=== PATIENT | male | born 1945 | race Caucasian/White ===

== ENCOUNTER → 2017-10-16 08:51 | Outpatient (CLI) | payer MEDICARE, OTHER, SELFPAY ==
[2017-10-16 09:15] LABS: Blood Urea Nitrogen 16 mg/dL (7-18); Creatinine,Serum 1.21 mg/dL (0.70-1.30); Estimated Glomerular Filt Rate 59 ml/min (>60); GFR (African American) 72 ML/MIN (>60)
--- NOTE | 2017-10-16 09:40 | CT_ITS ---
CT abdomen pelvis w con CLINICAL INDICATION: Follow-up pancreatic mass noted on recent lumbar spine CT ITS.REASON: ABD MASS ORDERING PHYSICIAN: Jeb Gonzalez MD PATIENT AGE: 72 years COMPARISON: None TECHNIQUE: Axial images obtained with sagittal and coronal reformats. All CT scans at the facility use one or more dose reduction, viz: automated exposure control; ma/kV adjustment per patient size (including targeted exams where dose is matched to indication; i.e. head); or iterative reconstruction technique. PROCEDURE: Oral Contrast: None IV Contrast: 75 mL's of Isovue-370. FINDINGS: Faint nodularity is present in the right middle lobe at 7 mm nonspecific and incompletely imaged. No focal liver lesion is evident. The spleen, adrenal glands, and gallbladder has an unremarkable appearance. No renal calculi, ureteral calculi, or hydronephrosis. There is a 15 mm right renal cyst. There is a solid-appearing somewhat heterogeneously mass involving the body of the pancreas to the left of midline at the junction of the body and the tail. This measures 5.7 x 5 x 5.8 cm transverse, cephalad to caudad and AP. There are a few calcifications present within the mass centrally and along the superior aspect. This is consistent with pancreatic neoplasm. There are a few small retroperitoneal lymph nodes. There is a small umbilical hernia containing fat. There is minimal stranding of the fat along the inferior aspect of both kidneys in the lateral pararenal fascia nonspecific. No evidence of appendicitis or diverticulitis. There is a mild amount retained colonic feces. There are some minimal stranding of the fat in the pelvis. There is moderate thickening of the urinary bladder wall concentric in nature with minimal stranding of the perivesical fat suggesting cystitis. There is mild enlargement prostate 4.5 cm. 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 IMPRESSION: 1. 5.8 cm solid-appearing pancreatic mass involving the junction of the body and tail the pancreas consistent with pancreatic neoplasm. There is no good portal for CT guided biopsy. Biopsy could be performed endoscopically by the transgastric approach. 2. Thickened urinary bladder wall with mild stranding of the adjacent fat suggesting cystitis.
== END ==
PROVIDERS: PCP Emergency Medicine; Visit Provider Emergency Medicine
DX: R19.00 Intra-abdominal and pelvic swelling, mass and lump, unspecified site (principal)
CPT/HCPCS: 36415; 74177; 82565; 84520; Q9967

== ENCOUNTER → 2018-05-01 00:14 | Outpatient (REF) | payer MEDICARE, MEDICAID, SELFPAY ==
[2018-05-01 00:27] LABS: Adenovirus F 40/41, stool Not Detected (NotDetected); Astrovirus Not Detected (NotDetected); Campylobacter Not Detected (NotDetected); Clostridium Difficile A/B, PCR Not Detected (NotDetected); Cryptosporidium Not Detected (NotDetected); Cyclospora Cayetanesis Not Detected (NotDetected); Entamoeba histolytica Not Detected (NotDetected); Enteroaggregative E coli Not Detected (NotDetected); Enteropathogenic E coli Not Detected (NotDetected); Enterotoxigenic E coli Not Detected (NotDetected); Giardia lamblia Not Detected (NotDetected); Norovirus Not Detected (NotDetected); Plesimonas Shigalloides, PCR Not Detected (NotDetected); Rotavirus A Not Detected (NotDetected); Salmonella, PCR Not Detected (NotDetected); Shiga-like toxin E coli Not Detected (NotDetected); Shigella Enterovasive E coli Not Detected (NotDetected); Vibrio Cholerae Not Detected (NotDetected); Vibrio, PCR Not Detected (NotDetected); Yersinia Entercolitica, PCR Not Detected (NotDetected)
[2018-05-01 03:07] LABS: Sapovirus Detected (NotDetected)
== END ==
LOC: LAB 00:14
PROVIDERS: Visit Provider Emergency Medicine
DX: R19.7 Diarrhea, unspecified (principal)
CPT/HCPCS: 87507

== ENCOUNTER 2019-04-21 14:20 | Observation (INO) ==
[2019-04-21 14:41] LABS: Microscopic, Urine URINE MICROSCOPIC (MICROSCOPIC)
[2019-04-21 14:43] LABS: Appearance,Urine CLEAR (Clear); Bilirubin,Urine Negative (Negative); Blood, Urine 3+ (Negative); Color,Urine YELLOW (Yellow); Glucose,Urine (UA) Negative (Negative); Ketones,Urine Negative (Negative); Leukocyte Esterase,Urine 2+ (Negative); Protein,Urine 2+ (Negative)
[2019-04-21 14:51] LABS: Bacteria,Urine 3+ /lpf; Mucus,Urine Trace /lpf; Squamous Epithelial Cell,Urine Occasional #/hpf (0-5); WBC,Urine TNTC #/hpf (0-3); Yeast,Urine 1+ /lpf
--- NOTE | 2019-04-21 14:57 | Emergency Department Note ---
ED Disposition Clinical Impression: Chronic paranoid schizophrenia, Mass of pancreas, Lumbar spondylolysis UTI (urinary tract infection) Qualifiers: Urinary tract infection type: site unspecified Hematuria presence: without hematuria Qualified Code(s): N39.0 - Urinary tract infection, site not specified GERD (gastroesophageal reflux disease) Qualifiers: Esophagitis presence: esophagitis presence not specified Qualified Code(s): K21.9 - Gastro-esophageal reflux disease without esophagitis HTN (hypertension) Qualifiers: Hypertension type: essential hypertension Qualified Code(s): I10 - Essential (primary) hypertension Obesity Qualifiers: Obesity type: due to excess calories Obesity classification: adult class 3 (BMI >= 40) Serious obesity comorbidity presence: with serious comorbidity Body mass index: BMI 45.0-49.9 Qualified Code(s): E66.01 - Morbid (severe) obesity due to excess calories; Z68.42 - Body mass index (BMI) 45.0-49.9, adult Osteopenia Qualifiers: Osteopenia location: unspecified Qualified Code(s): M85.80 - Other specified disorders of bone density and structure, unspecified site Disposition: Admitted as Observation Condition on Discharge: Fair Instructions: DI for Acute Abdomen Referrals: Provider,Referral, [Referring] - - Critical Care Critical Care Time: No Attestation: On 04/21/19, the high probability of a clinically significant, sudden or life threatening deterioration of the following system(s) required my full and direct attention, intervention and personal management. The time I documented below is in addition to time spent performing reported procedures but includes the following listed in this critical care notation. Medical Decision Making - Medical Records Medical records reviewed: Yes: I reviewed the patient's medical records. - Miles Inquiry Pt receiving controlled substance: No Vital Signs: 04/21/19 14:22 04/21/19 14:43 04/21/19 15:22 Temperature 100 F H Temperature Source Rectal Pulse Rate [Right] 51 L 82 78 Respiratory Rate 20 Blood Pressure [Right Arm] 128/100 H 159/75 H 147/81 H Blood Pressure Mean [Right Arm] 109 103 103 02 Sat by Pulse Oximetry 90 L 93 L 94 L 04/21/19 15:30 04/21/19 16:22 Temperature Temperature Source Pulse Rate [Right] 87 77 Respiratory Rate Blood Pressure [Right Arm] 147/81 H 145/65 H Blood Pressure Mean [Right Arm] 103 91 02 Sat by Pulse Oximetry 93 L 94 L - Lab Data Lab results reviewed: Yes: I reviewed the patient's lab results. Lab Results 04/21/19 14:21: Urine Color Yellow, Urine Appearance Clear, Urine pH 6.0, Ur Specific [place] 1.020, Urine Protein 2+, Urine Glucose (UA) Negative, Urine Ketones Negative, Urine Blood 3+, Urine Nitrate Positive, Urine Bilirubin Negative, Urine Urobilinogen 1.0, Ur Leukocyte Esterase 2+ A, Urine RBC 10-20, Urine WBC Tntc, Ur Squamous Epith Cells Occasional, Urine Bacteria 3+, Urine Mucus Trace, Urine Yeast 1+ 04/21/19 14:35: Influenza Type A Ag Negative, Influenza Type B Ag Negative 04/21/19 14:44: WBC 10.4, RBC 4.03 L, Hgb 12.4 L, Hct 39.4 L, MCV 97.8 H, MCH 30.7, MCHC 31.3 L, RDW 14.2, Plt Count 164, MPV 8.7, Neut % (Auto) 86.9 H, Lymph % (Auto) 6.9 L, [place] % (Auto) 5.3, Eos % (Auto) 0.7, Baso % (Auto) 0.2, Neut # (Auto) 9.0 H, Lymph # (Auto) 0.7, [place] # (Auto) 0.6, Eos # (Auto) 0.1, Baso # (Auto) 0.0, Total Counted 100, Neutrophils % (Manual) 86 H, Lymphocytes % (Manu al) 6 L, Monocytes % (Manual) 7, Eosinophils % (Manual) 1, Platelet Estimate Normal, RBC Morphology Normal, ESR 106 H 04/21/19 14:44: Sodium 138, Potassium 3.2 L, Chloride 100, Carbon Dioxide 29, Anion Gap 12.2, BUN 26 H, Creatinine 1.54 H, Estimated Creat Clear 47, Estimated GFR 45 L, Est GFR ( Amer) 54 L, Glucose 125 H, Calcium 8.6, Total Bilirubin 0.5, AST 88 H, ALT 72, Alkaline Phosphatase 86, Troponin I < 0.02, C- Reactive Protein 29.1 H, Total Protein 7.4, Albumin 2.9 L, Globulin 4.5 H, Albumin/Globulin Ratio 0.6 L, Amylase 43, Lipase 115, TSH 2.89, Thyroxine (T4) 7.2 04/21/19 14:44: Lactate 0.9 04/21/19 14:44: B-Natriuretic Peptide 852 H Result diagrams: 04/21/19 14:44 04/21/19 14:44 Orders (Tests/Meds): ED MEDICATIONS Generic Name Dose Route Start Last Admin Trade Name Freq PRN Reason Stop Dose Admin Ertapenem 1 gm/ Sodium 50 mls @ 100 mls/hr 04/21/19 15:15 04/21/19 15:16 Chloride IV 05/05/19 15:14 100 mls/hr Q24H OMKAR Administration Protocol Sodium Chloride 1,000 mls @ 999 mls/hr 04/21/19 15:45 04/21/19 15:39 Sod Chlor 0.9% 1000ml Bag IV 04/21/19 16:45 999 mls/hr .Q1H1M OMKAR Administration ORDERS Category Date Time Status CT abdomen pelvis wo con Stat Cat Scan 04/21/19 15:48 Taken XR chest portable Stat Exams 04/21/19 14:32 Taken Troponin I Q3H Lab 04/21/19 17:45 Ordered Troponin I Q3H Lab 04/21/19 20:45 Ordered Urinalysis and Microscopic Stat Lab 04/21/19 14:27 Ordered Blood Culture Stat Micro 04/21/19 14:44 Received Urine Culture Stat Micro 04/21/19 14:21 Received - Radiology Data #1 Image(s): Chest Image Reviewed: Yes I reviewed the patient's radiology image Preliminary Findings: Abnormal - CT Data CT Scan: Abdomen, Pelvis Time Received: 17:[address] Reviewed: Yes: I have viewed the radiologist's interpretation Preliminary Findings: Abnormal (see report ) - ECG Data Tracing #1 Arrhythmias present: wandering atrial pacemaker Ischemic changes: non-specific ST-T wave changes Nausea/Vomiting/Diarrhea HPI - General Chief complaint: Abdominal Pain Stated complaint: abd pain Time Seen by Provider: 04/21/19 14:35 Mode of Arrival: EMS Source of Information: Patient, EMS, Medical Record Limitations: No Limitations Description of Symptoms (Recalled from ER Triage Doc. by RN): Pt c/o abd tenderness and states he hasnt been able to have a BM, pt states he also has been weak and overall not feeling well. - History of Present Illness HPI Narrative: lower abd pain with distention today at [facility] and sent for eval - has hx of pancreatic mass - no vomiting MD complaint: nausea, vomiting, abdominal pain Onset (ago): hour(s) Associated Abdominal Pain: Yes Location of pain: periumbilical Associated symptoms: loss of appetite - Related Data Home Medications Medication Instructions Recorded Confirmed Acetaminophen [Tylenol 500mg 500 mg PO NEEDED PRN 04/21/19 04/21/19 tablet] Amlodipine Besylate [Amlodipine 5 mg PO DAILY 04/21/19 04/21/19 5mg tab] Aspirin [Aspirin 81mg chewable 81 mg PO DAILY 04/21/19 04/21/19 tab] Atorvastatin Calcium [Atorvastatin 10 mg PO HS 04/21/19 04/21/19 10mg Tab] Donepezil HCl [Aricept 5mg 5 mg PO HS 04/21/19 04/21/19 Tablet] Doxazosin Mesylate [Doxazosin 1mg 1 mg PO HS 04/21/19 04/21/19 Tab] Furosemide [Lasix 40mg tab] 40 mg PO BID 04/21/19 04/21/19 Ibuprofen [Ibuprofen 400mg 400 mg PO Q6HP PRN 04/21/19 04/21/19 Tablet] Nystatin 1 each MC NEEDED PRN 04/21/19 04/21/19 OXcarbazepine [Trileptal] 300 mg PO BID 04/21/19 04/21/19 Pantoprazole Sodium [Protonix 40mg 40 mg PO DAILY 04/21/19 04/21/19 tablet] Potassium Chloride [Klor-Con 10mEq 10 meq PO BID 04/21/19 04/21/19 tab] Sennosides/Docusate Sodium [Senna 1 each PO NEEDED PRN 04/21/19 04/21/19 Plus 8.6-50 mg Softgel] carvediloL [Coreg 25mg Tablet] 25 mg PO BID 04/21/19 04/21/19 risperiDONE [Risperdal] 2 mg PO BID 04/21/19 04/21/19 Allergies Allergy/AdvReac Type Severity Reaction Status Date / Time No Known Allergies Allergy Verified 02/02/19 13:56 [facility] History - Hepatitis A Screen Drug use history?: No High risk sexual behaviors?: No History of sexually transmitted infection?: No Currently employed?: No Childcare worker?: No Do you have indoor plumbing?: Yes Do you have electricity?: Yes Attestation statement:: This patient has been screened for Hepatitis A risk factors. I have reviewed the patient's past medical history: Yes Medical History: Reports:: Congestive Heart Failure, Gastroesophageal Reflux Disease(GERD), Hyperlipidemia, Hypertension Denies:: Diabetes Mellitus Type 1, Diabetes Mellitus Type 2 Other Medical History: Reports: Other Comment: hx of suicide attempt,pancreas mass,paranoid,neurocognitive dz, Amputation: No Fractures: No - Social History Smoking Status: Never smoker Alcohol Intake: never Substance Use Type: denies use Occupational Status: disabled Comment: History of suicidal ideation, chronic., Schizophrenic, major depression disorder, and neurocognitive disorder. Family Hx:: Unable to obtain ROS Obtained: Yes All systems reviewed & no additional complaints - Constitutional Constitutional: Denies fever(s), Reports poor appetite - Eyes Eyes: Denies change in vision - ENT Ears, Nose, Mouth, and Throat: Denies sore throat - Cardiovascular Cardiovascular: Denies chest pain - Respiratory Respiratory: No cough - Gastrointestinal Gastrointestingal: Reports: as per HPI, abdominal pain, nausea. Denies: vomiting - Genitourinary Male Genitourinary: Denies hematuria - Musculoskeletal Musculoskeletal: Denies joint pain - Integumentary/Breasts Skin/Breast: Denies rash - Neurologic Neurologic: Denies seizure-like activity Physical Exam - General General appearance: alert, obese - Head Head exam: normocephalic - Eye Eye exam: Present: PERRL, EOMI. Absent: scleral icterus - ENT ENT exam: Present: mucous membranes dry - Neck Neck exam: Present: trachea midline - Respiratory Respiratory exam: Present: other (dec bs bilat ). Absent: respiratory distress - Cardiovascular Cardiovascular exam: Present: regular rate, irregular rhythm, systolic murmur, +S4 - Abdominal Exam Abdominal exam: Present: soft, tenderness Abdominal tenderness: Present: suprapubic, moderate - Extremities Exam Extremities exam: Present: pedal edema. Absent: calf tenderness - Neurological Exam Neurological exam: Present: alert, CN II-XII intact - Skin Skin exam: Absent: rash
[2019-04-21 14:59] LABS: Basophils % 0.2 % (0.1-2.0); Eosinophils # 0.1 K/mm3 (0.0-0.4); Eosinophils % 0.7 % (0.1-12.0); Hematocrit 39.4 % (42.0-52.0); Hemoglobin 12.4 g/dL (14.1-18.0); Lymphocytes # 0.7 K/mm3 (0.7-4.5); Lymphocytes % 6.9 % (10-50); Mean Corpuscular HGB Conc 31.3 g/dL (31.8-35.4); Mean Corpuscular Volume 97.8 fl (80-94); Mean Platelet Volume 8.7 fl (7.4-10.4); Monocytes # 0.6 K/mm3 (0.1-1.0); Monocytes % 5.3 % (1.7-9.3); Neutrophils % 86.9 % (37.0-80.0); Platelet Count 164 K/mm3 (142-424); Red Blood Count 4.03 M/mm3 (4.60-6.20); Red Cell Distribution Width 14.2 % (11.5-17.5); White Blood Count 10.4 K/mm3 (4.8-10.8)
[2019-04-21 15:21] LABS: Alanine Aminotransferase 72 U/L (12-78); Albumin Level 2.9 gm/dL (3.4-5.0); Albumin/Globulin Ratio 0.6 (1.1-1.8); Alkaline Phosphatase 86 U/L (46-116); Amylase 43 U/L (25-115); Anion Gap 12.2 mEq/L (5-15); Aspartate Amino Transferase 88 U/L (15-37); Bilirubin,Total 0.5 mg/dL (0.2-1.0); Blood Urea Nitrogen 26 mg/dL (7-18); Calcium 8.6 mg/dL (8.5-10.1); Carbon Dioxide 29 mmol/L (21.0-32.0); Chloride 100 mmol/L (98-107); Globulin 4.5 gm/dl (1.3-3.2); Glucose 125 mg/dL (74-106); Sodium 138 mmol/L (136-145); Thyroid Stimulating Hormone 2.89 uIU/ml (0.358-3.740); Total Protein,Serum 7.4 gm/dL (6.4-8.2)
[2019-04-21 15:25] LABS: Erythrocyte Sedimentation Rate 106 mm/hr (0-20)
[2019-04-21 15:30] LABS: Eosinophils % 1 % (0-3); Lymphocytes % 6 % (10-50); Monocytes % 7 % (2-9); Neutrophils % 86 % (42-76); Total Cells Counted 100
[2019-04-21 15:32] LABS: C-Reactive Protein 29.1 mg/dL (0.0-0.9); RBC Morphology Normal
--- NOTE | 2019-04-21 18:10 | History & Physical Report ---
*Admission Date: 04/21/19 *Chief complaint: abd pain *History of present illness: this pt was sent from [facility] with progressive abd pain lower with dec po intake and was found to have uti in the ed and was admitted for ivf and abx [facility] History I have reviewed the patient's past medical history: Yes Medical History: Reports:: Congestive Heart Failure, Gastroesophageal Reflux Disease(GERD), Hyperlipidemia, Hypertension Denies:: Diabetes Mellitus Type 1, Diabetes Mellitus Type 2 *Have you ever received a pneumonia vaccine?: Yes *Have you received a flu vaccine this season?: Yes Other Medical History: Reports: Other Amputation: No Fractures: No - *Social History Smoking Status: Never smoker Alcohol Intake: never Substance Use Type: denies use *Occupational Status:: disabled *Travel in the last 8 weeks: None Family Hx:: Unable to obtain Review of Systems - Review of Systems Review of systems:: pertinent systems reviewed and negative unless documented below - Constitutional Denies fever(s), Denies headache(s) - Eyes Denies change in vision - ENT Denies sore throat - *Cardiovascular Denies chest pain, Denies chest pain at rest - *Respiratory Denies cough - *Gastrointestinal Reports abdominal pain, Reports nausea - *Genitourinary Denies blood in urine - *Musculoskeletal Denies joint pain - Integumentary/Breasts Denies rash - *Neurologic Denies frequent falls, Denies headache(s), Denies tingling/numbness/burning sensations, Denies seizure-like activity - Psychiatric Denies anxiety Meds Home Medications Medication Instructions Recorded Confirmed Type Acetaminophen [Tylenol 500mg 500 mg PO NEEDED PRN 04/21/19 04/21/19 History tablet] Amlodipine Besylate [Amlodipine 5 mg PO DAILY 04/21/19 04/21/19 History 5mg tab] Aspirin [Aspirin 81mg chewable 81 mg PO DAILY 04/21/19 04/21/19 History tab] Atorvastatin Calcium [Atorvastatin 10 mg PO HS 04/21/19 04/21/19 History 10mg Tab] Donepezil HCl [Aricept 5mg 5 mg PO HS 04/21/19 04/21/19 History Tablet] Doxazosin Mesylate [Doxazosin 1mg 1 mg PO HS 04/21/19 04/21/19 History Tab] Furosemide [Lasix 40mg tab] 40 mg PO BID 04/21/19 04/21/19 History Ibuprofen [Ibuprofen 400mg 400 mg PO Q6HP PRN 04/21/19 04/21/19 History Tablet] Nystatin 1 each MC NEEDED PRN 04/21/19 04/21/19 History OXcarbazepine [Trileptal] 300 mg PO BID 04/21/19 04/21/19 History Pantoprazole Sodium [Protonix 40mg 40 mg PO DAILY 04/21/19 04/21/19 History tablet] Potassium Chloride [Klor-Con 10mEq 10 meq PO BID 04/21/19 04/21/19 History tab] Sennosides/Docusate Sodium [Senna 1 each PO NEEDED PRN 04/21/19 04/21/19 History Plus 8.6-50 mg Softgel] carvediloL [Coreg 25mg Tablet] 25 mg PO BID 04/21/19 04/21/19 History risperiDONE [Risperdal] 2 mg PO BID 04/21/19 04/21/19 History Allergies Allergy/AdvReac Type Severity Reaction Status Date / Time No Known Allergies Allergy Verified 02/02/19 13:56 Exam Vital signs and Labs for Last 24 Hours: Temp Pulse Resp BP Pulse Ox 98.1 F 72 18 146/94 H 94 L 04/21/19 17:30 04/21/19 17:30 04/21/19 17:30 04/21/19 17:30 04/21/19 16:22 Laboratory Results - last 24 hr 04/21/19 14:21: Urine Color Yellow, Urine Appearance Clear, Urine pH 6.0, Ur Specific [place] 1.020, Urine Protein 2+, Urine Glucose (UA) Negative, Urine Ketones Negative, Urine Blood 3+, Urine Nitrate Positive, Urine Bilirubin Negative, Urine Urobilinogen 1.0, Ur Leukocyte Esterase 2+ A, Urine RBC 10-20, Urine WBC Tntc, Ur Squamous Epith Cells Occasional, Urine Bacteria 3+, Urine Mucus Trace, Urine Yeast 1+ 04/21/19 14:35: Influenza Type A Ag Negative, Influenza Type B Ag Negative 04/21/19 14:44: WBC 10.4, RBC 4.03 L, Hgb 12.4 L, Hct 39.4 L, MCV 97.8 H, MCH 30.7, MCHC 31.3 L, RDW 14.2, Plt Count 164, MPV 8.7, Neut % (Auto) 86.9 H, Lymph % (Auto) 6.9 L, [place] % (Auto) 5.3, Eos % (Auto) 0.7, Baso % (Auto) 0.2, Neut # (Auto) 9.0 H, Lymph # (Auto) 0.7, [place] # (Auto) 0.6, Eos # (Auto) 0.1, Baso # (Auto) 0.0, Total Counted 100, Neutrophils % (Manual) 86 H, Lymphocytes % (Manual) 6 L, Monocytes % (Manual) 7, Eosinophils % (Manual) 1, Platelet Estimate Normal, RBC Morphology Normal, ESR 106 H 04/21/19 14:44: Sodium 138, Potassium 3.2 L, Chloride 100, Carbon Dioxide 29, Anion Gap 12.2, BUN 26 H, Creatinine 1.54 H, Estimated Creat Clear 47, Estimated GFR 45 L, Est GFR ( Amer) 54 L, Glucose 125 H, Calcium 8.6, Total Bilirubin 0.5, AST 88 H, ALT 72, Alkaline Phosphatase 86, Troponin I < 0.02, C- Reactive Protein 29.1 H, Total Protein 7.4, Albumin 2.9 L, Globulin 4.5 H, Albumin/Globulin Ratio 0.6 L, Amylase 43, Lipase 115, TSH 2.89, Thyroxine (T4) 7.2 04/21/19 14:44: Lactate 0.9 04/21/19 14:44: B-Natriuretic Peptide 852 H I & O for Last 24 hours: Intake & Output 04/19/19 04/20/19 04/21/19 04/22/19 11:59 11:59 11:59 11:59 Intake Total 1100 / 1100 Balance 1100 / 1100 Weight 350 lb - Constitutional no acute distress, obese - *Routine HEENT Exam Head: Present: normocephalic Eye: Present: EOMI, PERRL ENT: Present: mucous membranes dry - *Routine Neck Exam Present: supple. Absent: JVD - *Routine Respiratory Exam Present: decreased breath sounds - *Routine Cardiovascular Exam Present: RRR, murmur, S4 - *Routine Abdominal Exam Present: soft - *Routine Extremities Exam Absent: calf tenderness - *Routine Skin Exam Present: intact - *Routine Neurological Exam Present: alert, CN II-XII intact - Routine Psychiatric Exam Present: normal affect Assessment and Plan (1) Lumbar spondylolysis Current visit: Yes Status: Acute Category: Medical Code(s): M43.06 - Spondylolysis, lumbar region (2) Osteopenia Current visit: Yes Status: Acute Qualifiers: Osteopenia location: unspecified Qualified Code(s): M85.80 - Other specified disorders of bone density and structure, unspecified site Category: Medical Code(s): M85.80 - Other specified disorders of bone density and structure, unspecified site (3) Hyperlipemia Current visit: No Status: Chronic Qualifiers: Hyperlipidemia type: mixed hyperlipidemia Qualified Code(s): E78.2 - Mixed hyperlipidemia Category: Medical Code(s): E78.5 - Hyperlipidemia, unspecified (4) HTN (hypertension) Current visit: Yes Status: Chronic Qualifiers: Hypertension type: essential hypertension Qualified Code(s): I10 - Essential (primary) hypertension Category: Medical Code(s): I10 - Essential (primary) hypertension (5) Chronic paranoid schizophrenia Current visit: Yes Status: Chronic Category: Medical Code(s): F20.0 - Paranoid schizophrenia (6) UTI (urinary tract infection) Current visit: Yes Status: Acute Qualifiers: Urinary tract infection type: site unspecified Hematuria presence: without hematuria Qualified Code(s): N39.0 - Urinary tract infection, site not specified Category: Medical Code(s): N39.0 - Urinary tract infection, site not specified (7) Mass of pancreas Current visit: Yes Status: Acute Category: Medical Code(s): K86.89 - Other specified diseases of pancreas (8) Obesity Current visit: Yes Status: Acute Qualifiers: Obesity type: due to excess calories Obesity classification: adult class 3 (BMI >= 40) Serious obesity comorbidity presence: with serious comorbidity Body mass index: BMI 45.0-49.9 Qualified Code(s): E66.01 - Morbid (severe) obesity due to excess calories; Z68.42 - Body mass index (BMI) 45.0-49.9, adult Category: Medical Code(s): E66.9 - Obesity, unspecified
[2019-04-22 05:57] LABS: Basophils % 0.3 % (0.1-2.0); Eosinophils # 0.2 K/mm3 (0.0-0.4); Lymphocytes # 0.8 K/mm3 (0.7-4.5); Lymphocytes % 9.1 % (10-50); Mean Corpuscular HGB Conc 31.6 g/dL (31.8-35.4); Mean Corpuscular Volume 95.8 fl (80-94); Mean Platelet Volume 8.4 fl (7.4-10.4); Monocytes # 0.6 K/mm3 (0.1-1.0); Monocytes % 7.1 % (1.7-9.3); Neutrophils % 81.4 % (37.0-80.0); Platelet Count 178 K/mm3 (142-424); Red Blood Count 3.66 M/mm3 (4.60-6.20); White Blood Count 8.6 K/mm3 (4.8-10.8)
[2019-04-22 05:59] LABS: Hemoglobin 11.1 g/dL (14.1-18.0)
[2019-04-22 06:00] LABS: Anion Gap 12.2 mEq/L (5-15); Calcium 8.3 mg/dL (8.5-10.1)
--- NOTE | 2019-04-22 07:57 | Pharmacy Consult Notes ---
[facility] Pharmacy VTE Monitoring - Patient Demographics Admission date: 04/21/19 Report Date: 04/22/19 Time: 07:56 Allergies/Adverse Reactions: Patient Allergies No Known Allergies Allergy (Verified 02/02/19 13:56) Height: 1.8 m Weight: 119.068 kg Patient Problems: Current Active Problems UTI (urinary tract infection) (Acute) Mass of pancreas (Acute) Obesity (Acute) Lumbar spondylolysis (Acute) Osteopenia (Acute) GERD (gastroesophageal reflux disease) (Chronic) HTN (hypertension) (Chronic) Chronic paranoid schizophrenia (Chronic) - VTE Risk Labs: VTE Related Lab Results Hgb 11.1 g/dL (14.1-18.0) L D 04/22/19 05:28 Hct 35.0 % (42.0-52.0) L 04/22/19 05:28 Plt Count 178 K/mm3 (142-424) 04/22/19 05:28 BUN 23 mg/dL (7-18) H 04/22/19 05:28 Creatinine 1.28 mg/dL (0.70-1.30) 04/22/19 05:28 Estimated Creat Clear 87 mL/min (50-200) 04/22/19 05:28 VTE Score: 4 VTE Risk Level: Low Risk - Prophylaxis VTE Prophylaxis Ordered?: Yes Types of VTE Prophylaxis: TEDS Knee High Location of Applied Device: Bilateral Lower Extremeties
--- NOTE | 2019-04-22 08:38 | Discharge Summary ---
General - General Admission date:: 04/21/19 Discharge date: 04/22/19 HPI HPI: this pt was sent from [facility] with progressive abd pain lower with dec po intake and was found to have uti in the ed and was admitted for ivf and abx Hospital Course Hospital Course: x ray:IMPRESSION: Cardiomegaly with mild right basilar atelectasis or infiltrate ct abd/pelvis IMPRESSION: 1. Slight enlargement of the pancreatic mass. 2. Small focus of soft tissue stranding in the left pericolic gutter abutting the descending colon raising the possibility of early occult diverticulitis. No colon wall thickening or abscess or perforation. 3. Mild ectasia of the renal collecting systems and distention of the urinary bladder with mild enlargement of the prostate UTI;Urine preliminary gram negative-had 2 doses of Invanz while in the hospital will discharge back to [place] on 1 g of Rocephin while waiting for final culture report. Patient needs to follow-up with Dr. Palacios regarding pancreatic mass. Objective Vital signs: Temp Pulse Resp BP Pulse Ox 99 F 66 22 142/84 H 92 L 04/22/19 08:00 04/22/19 08:00 04/22/19 08:00 04/22/19 08:00 04/22/19 08:00 no acute distress, obese - *Routine HEENT Exam Head: Present: normocephalic Eye: Present: PERRL ENT: Present: mucous membranes moist - *Routine Respiratory Exam Present: CTA bilaterally - *Routine Cardiovascular Exam Present: RRR - *Routine Abdominal Exam Present: soft, normoactive bowel sounds, obese - *Routine Extremities Exam Present: full ROM - *Routine Skin Exam Present: intact - *Routine Neurological Exam Present: alert - Routine Psychiatric Exam Present: normal affect Results Labs on day of discharge: Labs from last 24 hours 04/22/19 04/22/19 04/21/19 05:28 05:28 20:45 WBC 8.6 RBC 3.66 L Hgb 11.1 L D Hct 35.0 L MCV 95.8 H MCH 30.3 MCHC 31.6 L RDW 14.0 Plt Count 178 MPV 8.4 Neut % (Auto) 81.4 H Lymph % (Auto) 9.1 L [place] % (Auto) 7.1 Eos % (Auto) 2.0 Baso % (Auto) 0.3 Neut # (Auto) 7.0 Lymph # (Auto) 0.8 [place] # (Auto) 0.6 Eos # (Auto) 0.2 Baso # (Auto) 0.0 Total Counted Neutrophils % (Manual) Lymphocytes % (Manual) Monocytes % (Manual) Eosinophils % (Manual) Platelet Estimate RBC Morphology ESR Sodium 141 Potassium 3.2 L Chloride 104 Carbon Dioxide 28 Anion Gap 12.2 BUN 23 H Creatinine 1.28 Estimated Creat Clear 87 Estimated GFR 55 L Est GFR ( Amer) 67 D Glucose 113 H Lactate Calcium 8.3 L Total Bilirubin AST ALT Alkaline Phosphatase Troponin I < 0.02 C-Reactive Protein B-Natriuretic Peptide Total Protein Albumin Globulin Albumin/Globulin Ratio Amylase Lipase TSH Thyroxine (T4) Urine Color Urine Appearance Urine pH Ur Specific [place] Urine Protein Urine Glucose (UA) Urine Ketones Urine Blood Urine Nitrate Urine Bilirubin Urine Urobilinogen Ur Leukocyte Esterase Urine RBC Urine WBC Ur Squamous Epith Cells Urine Bacteria Urine Mucus Urine Yeast Influenza Type A Ag Influenza Type B Ag 04/21/19 04/21/19 04/21/19 18:08 14:44 14:44 WBC RBC Hgb Hct MCV MCH MCHC RDW Plt Count MPV Neut % (Auto) Lymph % (Auto) [place] % (Auto) Eos % (Auto) Baso % (Auto) Neut # (Auto) Lymph # (Auto) [place] # (Auto) Eos # (Auto) Baso # (Auto) Total Counted Neutrophils % (Manual) Lymphocytes % (Manual) Monocytes % (Manual) Eosinophils % (Manual) Platelet Estimate RBC Morphology ESR Sodium Potassium Chloride Carbon Dioxide Anion Gap BUN Creatinine Estimated Creat Clear Estimated GFR Est GFR ( Amer) Glucose Lactate 0.9 Calcium Total Bilirubin AST ALT Alkaline Phosphatase Troponin I < 0.02 C-Reactive Protein B-Natriuretic Peptide 852 H Total Protein Albumin Globulin Albumin/Globulin Ratio Amylase Lipase TSH Thyroxine (T4) Urine Color Urine Appearance Urine pH Ur Specific [place] Urine Protein Urine Glucose (UA) Urine Ketones Urine Blood Urine Nitrate Urine Bilirubin Urine Urobilinogen Ur Leukocyte Esterase Urine RBC Urine WBC Ur Squamous Epith Cells Urine Bacteria Urine Mucus Urine Yeast Influenza Type A Ag Influenza Type B Ag 04/21/19 04/21/19 04/21/19 14:44 14:44 14:35 WBC 10.4 RBC 4.03 L Hgb 12.4 L Hct 39.4 L MCV 97.8 H MCH 30.7 MCHC 31.3 L RDW 14.2 Plt Count 164 MPV 8.7 Neut % (Auto) 86.9 H Lymph % (Auto) 6.9 L [place] % (Auto) 5.3 Eos % (Auto) 0.7 Baso % (Auto) 0.2 Neut # (Auto) 9.0 H Lymph # (Auto) 0.7 [place] # (Auto) 0.6 Eos # (Auto) 0.1 Baso # (Auto) 0.0 Total Counted 100 Neutrophils % (Manual) 86 H Lymphocytes % (Manual) 6 L Monocytes % (Manual) 7 Eosinophils % (Manual) 1 Platelet Estimate Normal RBC Morphology Normal ESR 106 H Sodium 138 Potassium 3.2 L Chloride 100 Carbon Dioxide 29 Anion Gap 12.2 BUN 26 H Creatinine 1.54 H Estimated Creat Clear 47 Estimated GFR 45 L Est GFR ( Amer) 54 L Glucose 125 H Lactate Calcium 8.6 Total Bilirubin 0.5 AST 88 H ALT 72 Alkaline Phosphatase 86 Troponin I < 0.02 C-Reactive Protein 29.1 H B-Natriuretic Peptide Total Protein 7.4 Albumin 2.9 L Globulin 4.5 H Albumin/Globulin Ratio 0.6 L Amylase 43 Lipase 115 TSH 2.89 Thyroxine (T4) 7.2 Urine Color Urine Appearance Urine pH Ur Specific [place] Urine Protein Urine Glucose (UA) Urine Ketones Urine Blood Urine Nitrate Urine Bilirubin Urine Urobilinogen Ur Leukocyte Esterase Urine RBC Urine WBC Ur Squamous Epith Cells Urine Bacteria Urine Mucus Urine Yeast Influenza Type A Ag Negative Influenza Type B Ag Negative 04/21/19 14:21 WBC RBC Hgb Hct MCV MCH MCHC RDW Plt Count MPV Neut % (Auto) Lymph % (Auto) [place] % (Auto) Eos % (Auto) Baso % (Auto) Neut # (Auto) Lymph # (Auto) [place] # (Auto) Eos # (Auto) Baso # (Auto) Total Counted Neutrophils % (Manual) Lymphocytes % (Manual) Monocytes % (Manual) Eosinophils % (Manual) Platelet Estimate RBC Morphology ESR Sodium Potassium Chloride Carbon Dioxide Anion Gap BUN Creatinine Estimated Creat Clear Estimated GFR Est GFR ( Amer) Glucose Lactate Calcium Total Bilirubin AST ALT Alkaline Phosphatase Troponin I C-Reactive Protein B-Natriuretic Peptide Total Protein Albumin Globulin Albumin/Globulin Ratio Amylase Lipase TSH Thyroxine (T4) Urine Color Yellow Urine Appearance Clear Urine pH 6.0 Ur Specific [place] 1.020 Urine Protein 2+ Urine Glucose (UA) Negative Urine Ketones Negative Urine Blood 3+ Urine Nitrate Positive Urine Bilirubin Negative Urine Urobilinogen 1.0 Ur Leukocyte Esterase 2+ A Urine RBC 10-20 Urine WBC Tntc Ur Squamous Epith Cells Occasional Urine Bacteria 3+ Urine Mucus Trace Urine Yeast 1+ Influenza Type A Ag Influenza Type B Ag Preliminary micro results at discharge 04/21/19 14:21 Urine Culture - Preliminary Urine,Catheterized Gram Negative Rods - Additional Comments Rounded with Dr. Gonzalez all orders per Carlos Discharge back to [place] on IM Rocephin and watch for urine culture DS: Diagnosis - Discharge Diagnosis (1) Lumbar spondylolysis Status: Acute (2) Osteopenia Status: Acute (3) Hyperlipemia Status: Chronic (4) HTN (hypertension) Status: Chronic (5) Chronic paranoid schizophrenia Status: Chronic (6) UTI (urinary tract infection) Status: Acute (7) Mass of pancreas Status: Acute (8) Obesity Status: Acute Discharge Plan - Patient Discharge Instructions ACTIVITY: Continue current activity DIET: continue same diet Patient Instructions: DI for Urinary Tract Infection (UTI), DI for Abdominal Pain-Adult - Follow up Plan Follow up with: Karis Muir APRN [Advanced Practice Nurse] - Disposition: Xfer [facility] Home Medications: Home Medications Medication Instructions Recorded Confirmed Type Acetaminophen [Tylenol 500mg 500 mg PO NEEDED PRN 04/21/19 04/21/19 History tablet] Amlodipine Besylate [Amlodipine 5 mg PO DAILY 04/21/19 04/21/19 History 5mg tab] Aspirin [Aspirin 81mg chewable 81 mg PO DAILY 04/21/19 04/21/19 History tab] Atorvastatin Calcium [Atorvastatin 10 mg PO HS 04/21/19 04/21/19 History 10mg Tab] Donepezil HCl [Aricept 5mg 5 mg PO HS 04/21/19 04/21/19 History Tablet] Doxazosin Mesylate [Doxazosin 1mg 1 mg PO HS 04/21/19 04/21/19 History Tab] Furosemide [Lasix 40mg tab] 40 mg PO BID 04/21/19 04/21/19 History Ibuprofen [Ibuprofen 400mg 400 mg PO Q6HP PRN 04/21/19 04/21/19 History Tablet] Nystatin 1 each MC NEEDED PRN 04/21/19 04/21/19 History OXcarbazepine [Trileptal] 300 mg PO BID 04/21/19 04/21/19 History Pantoprazole Sodium [Protonix 40mg 40 mg PO DAILY 04/21/19 04/21/19 History tablet] Potassium Chloride [Klor-Con 10mEq 10 meq PO BID 04/21/19 04/21/19 History tab] Sennosides/Docusate Sodium [Senna 1 each PO NEEDED PRN 04/21/19 04/21/19 History Plus 8.6-50 mg Softgel] carvediloL [Coreg 25mg Tablet] 25 mg PO BID 04/21/19 04/21/19 History risperiDONE [Risperdal] 2 mg PO BID 04/21/19 04/21/19 History Ceftriaxone Sodium [Rocephin 1gm 1 gm IM DAILY 8 Days #8 vial 04/22/19 Rx vial] Prescriptions/Medication Reconciliation: New Ceftriaxone Sodium [Rocephin 1gm vial] 1 gm IM DAILY 8 Days #8 vial Continued Furosemide [Lasix 40mg tab] 40 mg PO BID Potassium Chloride [Klor-Con 10mEq tab] 10 meq PO BID Pantoprazole Sodium [Protonix 40mg tablet] 40 mg PO DAILY carvediloL [Coreg 25mg Tablet] 25 mg PO BID Atorvastatin Calcium [Atorvastatin 10mg Tab] 10 mg PO HS Aspirin [Aspirin 81mg chewable tab] 81 mg PO DAILY OXcarbazepine [Trileptal] 300 mg PO BID Nystatin 1 each MC NEEDED PRN PRN Reason: Skin Irritation Doxazosin Mesylate [Doxazosin 1mg Tab] 1 mg PO HS Donepezil HCl [Aricept 5mg Tablet] 5 mg PO HS Acetaminophen [Tylenol 500mg tablet] 500 mg PO NEEDED PRN PRN Reason: pain Ibuprofen [Ibuprofen 400mg Tablet] 400 mg PO Q6HP PRN PRN Reason: pain Sennosides/Docusate Sodium [Senna Plus 8.6-50 mg Softgel] 1 each PO NEEDED PRN PRN Reason: Constipation risperiDONE [Risperdal] 2 mg PO BID Amlodipine Besylate [Amlodipine 5mg tab] 5 mg PO DAILY - Problem Reconciliation Problems Reviewed?: Yes
--- NOTE | 2019-04-25 07:42 | Electrocardiograph Report ---
APPROVED REPORT Exam: Resting ECG HR:94 bpm ECG Measurements Heart Rate 94 AXES VT 228 P 48 QRSd 88 QRS 82 QT 400 T1 QTc 500 <Conclusion> Undetermined rhythm Prolonged QT Abnormal ECG Electronically signed by : Gabriele England, 04/25/2019 07:41:27
== END 2019-04-22 10:17 ==
LOC: ER 14:20 → 2ND 14:20
PROVIDERS: ADMIT Emergency Medicine; ATTEND Emergency Medicine
CPT/HCPCS: 36415; 71010; 71045; 74176; 80048; 80053; 81001; 82150; 83605; 83690; 83880; 84436; 84443; 84484; 85007; 85025; 85651; 86140; 87040; 87086; 87088; 87186; 87275; 87276; 93005; 96365; 96367; 99285; G0378; J1335

== ENCOUNTER → 2020-09-15 11:27 | Outpatient (CLI) | payer MEDICARE, MEDICAID, SELFPAY ==
[2020-09-15 13:33] LABS: Chloride 100 mmol/L (98-107)
[2020-09-15 13:34] LABS: Potassium 3.4 mmoL/L (3.5-5.1); Sodium 142 mmol/L (136-145)
[2020-09-15 13:37] LABS: Anion Gap 15.4 mEq/L (5-15); Blood Urea Nitrogen 16 mg/dl (9-20); Calcium 8.5 mg/dl (8.4-10.2); Carbon Dioxide 30 mmol/L (22.0-30.0); Estimated Glomerular Filt Rate 82 ml/min (>60); GFR (African American) 100 ML/MIN (>60); Glucose 92 mg/dl (74-100)
== END ==
PROVIDERS: Visit Provider Emergency Medicine
DX: I50.42 Chronic combined systolic (congestive) and diastolic (congestive) heart failure (principal); K86.89 Other specified diseases of pancreas
CPT/HCPCS: 80048

== ENCOUNTER 2021-03-21 15:09 | Inpatient (IN) | payer MEDICARE, MEDICAID, SELFPAY ==
[2021-03-21] VITALS (7 sets, daily range): BP systolic 170–194; BP diastolic 74–96; PULSE 74–79; RESP 15–18; TEMP 38.1; O2SAT 93–97; BMI 39.0; BMI 40.9
--- NOTE | 2021-03-21 15:28 | XR_ITS ---
PROCEDURE INFORMATION: Exam: XR Chest Exam date and time: 03/21/2021 3:28 PM Age: 76 years old Clinical indication: Other: AMS TECHNIQUE: Imaging protocol: XR of the chest. Views: 1 view. COMPARISON: CR XR CHEST PORTABLE 04/21/2019 2:55 PM FINDINGS: Airway: Patent Lungs: Low lung volumes causes crowding of the bronchovascular structures. Bilateral perihilar and infrahilar streak like opacifications. No large airspace opacifications are appreciated at this time. Pleural spaces: Unremarkable. No pleural effusion. No pneumothorax. Heart/Mediastinum: Cardiomediastinal silhouette is magnified due to technique. Bones/joints: No acute skeletal abnormality or aggressive osseous lesion. IMPRESSION: LUNG FINDINGS ARE MOST PROBABLY RELATED TO CROWDING OF BRONCHOVASCULAR STRUCTURES FROM LOW LUNG VOLUMES. CONSIDER DEVELOPING PNEUMONIA IN THE APPROPRIATE CLINICAL SETTING.
--- NOTE | 2021-03-21 15:31 | PC.NURSE ---
Called to Liliana with [facility] to get VBG
[2021-03-21 15:32] LABS: POC Glucose,Bedside 128 (70-110)
[2021-03-21 15:50] LABS: Basophils % 0.4 % (0.1-2.0); Eosinophils # 0.1 K/mm3 (0.0-0.4); Eosinophils % 0.7 % (0.1-12.0); Hematocrit 38.6 % (42.0-52.0); Hemoglobin 12.4 g/dL (14.1-18.0); Lymphocytes # 0.8 K/mm3 (0.7-4.5); Lymphocytes % 9.3 % (10-50); Mean Corpuscular Hemoglobin 29.3 pg (27.0-31.2); Mean Corpuscular Volume 91.6 fl (80-94); Monocytes # 0.7 K/mm3 (0.1-1.0); Monocytes % 7.7 % (1.7-9.3); Neutrophils # 7.4 K/mm3 (1.8-7.8); Neutrophils % 81.9 % (37.0-80.0); Platelet Count 190 K/mm3 (142-424); Red Blood Count 4.21 M/mm3 (4.60-6.20); Red Cell Distribution Width 15.2 % (11.5-17.5)
[2021-03-21 15:56] LABS: VBG Base Excess 2.6 mmol/L (-2.4-2.3); VBG Oxygen Saturation 93.8 % (50-70); VBG PCO2 35.3 mmol/L (35-51); VBG PH 7.49 mmol/L (7.31-7.41); VBG PO2 65.9 mmol/L (28-40); VBG Total CO2 27.1 mmol/L (23-27)
[2021-03-21 16:11] LABS: Microscopic, Urine URINE MICROSCOPIC (MICROSCOPIC)
[2021-03-21 16:11] LABS: Chloride 101 mmol/L (98-107); Potassium 4.5 mmoL/L (3.5-5.1); Sodium 137 mmol/L (136-145)
[2021-03-21 16:13] LABS: Blood Urea Nitrogen 14 mg/dl (9-20); Creatinine Clearance Estimated 88 mL/min (50-200); Estimated Glomerular Filt Rate 54 ml/min (>60); GFR (African American) 65 ML/MIN (>60)
[2021-03-21 16:14] LABS: Alanine Aminotransferase 18 U/L (12-78); Albumin Level 3.7 g/dl (3.5-5.0); Alkaline Phosphatase 46 U/L (38-126); Anion Gap 10.5 mEq/L (5-15); Aspartate Amino Transferase 54 U/L (17-59); Bilirubin,Total 1.1 mg/dl (0.2-1.3); Carbon Dioxide 30 mmol/L (22.0-30.0); Globulin 3.7 g/dL (1.3-3.2); Glucose 135 mg/dl (74-100); Total Protein,Serum 7.4 g/dl (6.3-8.2)
[2021-03-21 16:26] LABS: Appearance,Urine SL CLOUDY (Clear); Bilirubin,Urine Negative (Negative); Blood, Urine 2+ (Negative); Color,Urine YELLOW (Yellow); Glucose,Urine (UA) Negative (Negative); Ketones,Urine Negative (Negative); Leukocyte Esterase,Urine 2+ (Negative); Nitrate,Urine Negative (Negative); Protein,Urine 2+ (Negative); Specific Gravity, Urine 1.025 (1.005-1.030); Urobilinogen,Urine 0.2 EU/dl (0.2)
[2021-03-21 16:26] LABS: Troponin I 0.03 ng/ml (0.00-0.034)
--- NOTE | 2021-03-21 16:38 | ECG_ITS ---
APPROVED REPORT Exam: Resting ECG HR:73 bpm ECG Measurements Heart Rate 73 AXES CA 242 P 69 QRSd 90 QRS 76 QT 404 T -4 QTc 445 Conclusion Sinus rhythm with 1st degree AV block Nonspecific ST abnormality Abnormal QRS-T angle, consider primary T wave abnormality Abnormal ECG Electronically signed by : Gabriele England MD 03/22/2021 20:18:41
[2021-03-21 16:56] LABS: WBC,Urine 20-50 #/hpf (0-3)
[2021-03-21 16:57] LABS: Bacteria,Urine 2+ /lpf
[2021-03-21 17:17] LABS: NT Pro Brain Natriuretic Pep. 4920 pg/mL (0-450)
--- NOTE | 2021-03-21 17:33 | PC.NURSE ---
has been paged.
--- NOTE | 2021-03-21 17:44 | PC.NURSE ---
Dr Goncalves speaking with Dr Bhatia
--- NOTE | 2021-03-21 17:53 | PC.NURSE ---
Jade from [facility] notified of admission
--- NOTE | 2021-03-21 17:57 | PC.NURSE ---
supervisor drying and softening to call back for admission
[2021-03-21 19:19] LABS: Troponin I 0.02 ng/ml (0.00-0.034)
[2021-03-21 19:29] LABS: Coronavirus 19, PCR Not Detected (NotDetected); Influenza A, PCR Not Detected (NotDetected); Influenza B, PCR Not Detected (NotDetected)
--- NOTE | 2021-03-21 21:36 | HMH.EDGENADL ---
ED Disposition Clinical Impression: SIRS (systemic inflammatory response syndrome), UTI (urinary tract infection) Disposition: Admitted As Inpatient Condition on Discharge: Good Time of Disposition: 17:45 - Critical Care Critical Care Time: Yes Attestation: On 03/21/21, the high probability of a clinically significant, sudden or life threatening deterioration of the following system(s) required my full and direct attention, intervention and personal management. The time I documented below is in addition to time spent performing reported procedures but includes the following listed in this critical care notation. Total Critical Care Time: 30 Vital system(s) involved:: Metabolic Failure My critical care processes included: Assessment & monitoring of V/S, Initial and Re-exams, Data Review/Interpretation, Coordinating Care, Medication Orders and management, Documentation Medical Decision Making - Medical Records Medical records reviewed: Yes: I reviewed the patient's medical records. - Miles Inquiry Pt receiving controlled substance: No Vital Signs: 03/21/21 15:11 03/21/21 15:16 03/21/21 15:31 Temperature 100.5 F H Temperature Source Oral Pulse Rate 79 75 Pulse Rate [Right Radial] 78 Respiratory Rate 18 15 16 Blood Pressure 170/74 H 178/75 H Blood Pressure [Right Arm] 170/74 H Blood Pressure Mean 97 108 Blood Pressure Mean [Right Arm] 106 Blood Pressure Source [Right Arm] Automatic Cuff Blood Pressure Position [Right Arm] Sitting 02 Sat by Pulse Oximetry 93 L 96 95 Oxygen Delivery Method Room Air Oxygen Flow Rate (LPM) 03/21/21 16:01 03/21/21 16:31 03/21/21 17:01 Temperature Temperature Source Pulse Rate 74 77 76 Pulse Rate [Right Radial] Respiratory Rate 15 17 15 Blood Pressure 190/96 H 191/76 H 188/75 H Blood Pressure [Right Arm] Blood Pressure Mean 112 114 110 Blood Pressure Mean [Right Arm] Blood Pressure Source [Right Arm] Blood Pressure Position [Right Arm] 02 Sat by Pulse Oximetry 95 96 97 Oxygen Delivery Method Oxygen Flow Rate (LPM) 03/21/21 17:30 Temperature Temperature Source Pulse Rate 76 Pulse Rate [Right Radial] Respiratory Rate Blood Pressure 194/86 H Blood Pressure [Right Arm] Blood Pressure Mean Blood Pressure Mean [Right Arm] Blood Pressure Source [Right Arm] Blood Pressure Position [Right Arm] 02 Sat by Pulse Oximetry 96 Oxygen Delivery Method Nasal Cannula Oxygen Flow Rate (LPM) 3 - Lab Data Lab Results 03/21/21 15:25: POC Glucose 128 H 03/21/21 15:28: WBC 9.0, RBC 4.21 L, Hgb 12.4 L, Hct 38.6 L, MCV 91.6, MCH 29.3, MCHC 32.0, RDW 15.2, Plt Count 190, MPV 8.0, Neut % (Auto) 81.9 H, Lymph % (Auto) 9.3 L, [place] % (Auto) 7.7, Eos % (Auto) 0.7, Baso % (Auto) 0.4, Neut # (Auto) 7.4, Lymph # (Auto) 0.8, [place] # (Auto) 0.7, Eos # (Auto) 0.1, Baso # (Auto) 0.0 03/21/21 15:28: Sodium 137, Potassium 4.5, Chloride 101, Carbon Dioxide 30, Anion Gap 10.5, BUN 14, Creatinine 1.30 H, Estimated Creat Clear 88, Estimated GFR 54 L, Est GFR ( Amer) 65, Glucose 135 H, Calcium 8.0 L, Total Bilirubin 1.1, AST 54, ALT 18, Alkaline Phosphatase 46, Troponin I 0.03, Total Protein 7.4, Albumin 3.7, Globulin 3.7 H, Albumin/Globulin Ratio 1.0 L 03/21/21 15:28: NT-Pro-B Natriuret Pep 4920 H 03/21/21 15:29: VBG pH 7.49 H, VBG pCO2 35.3, VBG pO2 65.9 H, VBG HCO3 26.0, VBG Total CO2 27.1 H, VBG O2 Saturation 93.8 H, VBG Base Excess 2.6 H 03/21/21 16:03: Urine Color Yellow, Urine Appearance Sl cloudy, Urine pH 6.0, Ur Specific [place] 1.025, Urine Protein 2+, Urine Glucose (UA) Negative, Urine Ketones Negative, Urine Blood 2+, Urine Nitrate Negative, Urine Bilirubin Negative, Urine Urobilinogen 0.2, Ur Leukocyte Esterase 2+ A, Urine RBC 3-5, Urine WBC 20-50, Ur Squamous Epith Cells 3-5, Urine Bacteria 2+ 03/21/21 18:40: Troponin I 0.02 Result diagrams: 03/21/21 15:28 12/12/21 15:28 Orders (Tests/Meds): ED MEDICATIONS Generic Name D
[2021-03-21 22:10] LABS: Troponin I 0.02 ng/ml (0.00-0.034)
[2021-03-22] VITALS (8 sets, daily range): BP systolic 116–198; BP diastolic 82–91; PULSE 71–78; RESP 16–24; TEMP 36.8–37.6; O2SAT 95–98; BMI 40.7
--- NOTE | 2021-03-22 00:03 | PC.NURSE ---
Patient arrived to 202 via stretcher.
--- NOTE | 2021-03-22 05:25 | PC.NURSE ---
patient was stable overnight. No further orders
--- NOTE | 2021-03-22 07:21 | HMH.PHAVTE ---
[facility] Pharmacy VTE Monitoring - Patient Demographics Admission date: 03/21/21 Report Date: 03/22/21 Time: 07:21 Allergies/Adverse Reactions: Patient Allergies No Known Allergies Allergy (Verified 02/11/21 17:04) Height: 1.8 m Weight: 132.676 kg Patient Problems: Current Active Problems UTI (urinary tract infection) (Acute) SIRS (systemic inflammatory response syndrome) (Acute) - VTE Risk Labs: VTE Related Lab Results Hgb 12.4 g/dL (14.1-18.0) L 03/21/21 15:28 Hct 38.6 % (42.0-52.0) L 03/21/21 15:28 Plt Count 190 K/mm3 (142-424) 03/21/21 15:28 BUN 14 mg/dl (9-20) 03/21/21 15:28 Creatinine 1.30 mg/dl (0.66-1.25) H 03/21/21 15:28 Estimated Creat Clear 88 mL/min (50-200) 03/21/21 15:28 - Prophylaxis VTE Prophylaxis Ordered?: Yes Types of VTE Prophylaxis: TEDS Knee High Location of Applied Device: Bilateral Lower Extremeties
--- NOTE | 2021-03-22 07:46 | HMH.PHAINT ---
Home medication list verified with [facility] and [facility]
--- NOTE | 2021-03-22 08:22 | HMH.HP ---
*Admission Date: 03/21/21 *Chief complaint: Fever/chills *History of present illness: 76-year-old white male, residential resident status post stroke with sequela of seizure disorder, dysarthria and dysphagia issues who presented to the ER from the residential with cough, fever, mental status changes and sluggishness. In the ER he was found to have confusion, evidence of significant UTI with minimal white count elevation and mild KARINA. Admitted to hospital for further diagnostic testing, IV fluids, IV antibiotics and electrolyte monitoring and culture results. [facility] History I have reviewed the patient's past medical history: Yes Medical History: Reports:: Cancer, Congestive Heart Failure, Cerebrovascular Accident, Gastroesophageal Reflux Disease(GERD), Hyperlipidemia, Hypertension, Internal Pacemaker Denies:: Diabetes Mellitus Type 1, Diabetes Mellitus Type 2, MRSA *Have you ever received a pneumonia vaccine?: Yes *Have you received a flu vaccine this season?: Yes Other Medical History: Reports: Anemia, Other Other Surgeries: Yes: EGD, Pacemaker Amputation: No Fractures: No - *Social History Smoking Status: Never smoker Alcohol Intake: never Substance Use Type: denies use *Occupational Status:: unemployed *Travel in the last 8 weeks: None Family Hx:: Unable to obtain Review of Systems - Review of Systems Review of systems:: unable to obtain Meds Home Medications Medication Instructions Recorded Confirmed Type Acetaminophen [Tylenol 500mg 500 mg PO BID 04/21/19 03/22/21 History tablet] Amlodipine Besylate [Amlodipine 5 mg PO DAILY 04/21/19 03/22/21 History 5mg tab] Aspirin [Aspirin 81mg chewable 81 mg PO DAILY 04/21/19 03/22/21 History tab] Atorvastatin Calcium [Lipitor 10mg 10 mg PO QODHS 04/21/19 03/22/21 History Tab] Donepezil HCl [Aricept 5mg 5 mg PO HS 04/21/19 03/22/21 History Tablet] Doxazosin Mesylate [Doxazosin 1mg 1 mg PO HS 04/21/19 03/22/21 History Tab] Furosemide [Lasix 40mg tablet] 40 mg PO BID 04/21/19 03/22/21 History OXcarbazepine [Trileptal] 300 mg PO BID 04/21/19 03/22/21 History Pantoprazole Sodium [Protonix 40mg 40 mg PO DAILY 04/21/19 03/22/21 History tablet] Potassium Chloride [Klor-Con 10mEq 10 meq PO BID 04/21/19 03/22/21 History tab] carvediloL [Coreg 25mg Tablet] 25 mg PO BID 04/21/19 03/22/21 History risperiDONE [Risperdal] 2 mg PO BID 04/21/19 03/22/21 History Docusate Sodium 250 mg PO BID 03/22/21 03/22/21 History polyethylene glycoL 3350 [Miralax 1 pack PO DAILY 03/22/21 03/22/21 History 17gm Packet] Allergies Allergy/AdvReac Type Severity Reaction Status Date / Time No Known Allergies Allergy Verified 02/11/21 17:04 Exam Vital signs and Labs for Last 24 Hours: Temp Pulse Resp BP Pulse Ox 99.4 F 74 22 198/88 H 97 03/22/21 04:00 03/22/21 04:00 03/22/21 04:00 03/22/21 04:00 03/22/21 04:00 Laboratory Results - last 24 hr 03/21/21 15:25: POC Glucose 128 H 03/21/21 15:28: WBC 9.0, RBC 4.21 L, Hgb 12.4 L, Hct 38.6 L, MCV 91.6, MCH 29.3, MCHC 32.0, RDW 15.2, Plt Count 190, MPV 8.0, Neut % (Auto) 81.9 H, Lymph % (Auto) 9.3 L, [place] % (Auto) 7.7, Eos % (Auto) 0.7, Baso % (Auto) 0.4, Neut # (Auto) 7.4, Lymph # (Auto) 0.8, [place] # (Auto) 0.7, Eos # (Auto) 0.1, Baso # (Auto) 0.0 03/21/21 15:28: Sodium 137, Potassium 4.5, Chloride 101, Carbon Dioxide 30, Anion Gap 10.5, BUN 14, Creatinine 1.30 H, Estimated Creat Clear 88, Estimated GFR 54 L, Est GFR ( Amer) 65, Glucose 135 H, Calcium 8.0 L, Total Bilirubin 1.1, AST 54, ALT 18, Alkaline Phosphatase 46, Troponin I 0.03, Total Protein 7.4, Albumin 3.7, Globulin 3.7 H, Albumin/Globulin Ratio 1.0 L 03/21/21 15:28: NT-Pro-B Natriuret Pep 4920 H 03/21/21 15:29: VBG pH 7.49 H, VBG pCO2 35.3, VBG pO2 65.9 H, VBG HCO3 26.0, VBG Total CO2 27.1 H, VBG O2 Saturation 93.8 H, VBG Base Excess 2.6 H 03/21/21 16:03: Urine Color Yellow, Urine Appearance Sl cloudy, Urine pH 6.0,
--- NOTE | 2021-03-22 08:39 | SW/DCPLANNER ---
MADE ROUNDS WITH THIS MORNING AND PATIENT WAS ADMITTED TO [facility] FROM [facility] WITH A UTI AND KIDNEY INJURY. I CALLED [facility] AND HE IS A MEDICAID PATIENT THERE AND IS ON BEDHOLD.. HE WILL RETURN BACK THERE PENDING NO SETBACKS IN THE AM..
[2021-03-22 08:52] LABS: Chloride 100 mmol/L (98-107); Sodium 138 mmol/L (136-145)
[2021-03-22 08:53] LABS: Potassium 3.2 mmoL/L (3.5-5.1)
[2021-03-22 08:55] LABS: Alanine Aminotransferase 16 U/L (12-78); Alkaline Phosphatase 73 U/L (38-126); Anion Gap 8.2 mEq/L (5-15); Aspartate Amino Transferase 30 U/L (17-59); Bilirubin,Total 0.6 mg/dl (0.2-1.3); Blood Urea Nitrogen 15 mg/dl (9-20); Carbon Dioxide 33 mmol/L (22.0-30.0); Creatinine Clearance Estimated 60 mL/min (50-200); Estimated Glomerular Filt Rate 65 ml/min (>60); GFR (African American) 79 ML/MIN (>60)
[2021-03-22 08:56] LABS: Albumin Level 3.6 g/dl (3.5-5.0); Albumin/Globulin Ratio 1.1 (1.1-1.8); Calcium 7.9 mg/dl (8.4-10.2); Globulin 3.4 g/dL (1.3-3.2); Glucose 151 mg/dl (74-100); Phosphorous 2.9 mg/dl (2.5-4.5)
--- NOTE | 2021-03-22 09:59 | HMH.OTEV ---
OT Inpatient Evaluation Rehab OT IP Evaluation Start: 03/22/21 08:26 Freq: ONCE Status: Complete Protocol: Document 03/22/21 09:49 BRANDIN (Rec: 03/22/21 09:58 BRANDIN [id number]) Rehab OT IP Assessment Subjective History Per nursing report: 76-year-old white male, alf resident status post stroke with sequela of seizure disorder, dysarthria and dysphagia issues who presented to the ER from the alf with cough, fever , mental status changes and sluggishness. In the ER he was found to have confusion, evidence of significant UTI with minimal white count elevation and mild KARINA. Admitted to hospital for further diagnostic testing, IV fluids, IV antibiotics and electrolyte monitoring and culture results. [facility] History I have reviewed the patient's past medical history: Yes Medical History: Reports:: Cancer, Congestive Heart Failure, Cerebrovascular Accident, Gastroesophageal Reflux Disease(GERD), Hyperlipidemia, Hypertension, Internal Pacemaker Patient is a resident at [facility]. Patient ambulated with RW and required assistance for ADLs such as bathing. Recommend Patient to return to [facility] with therapy orders. Subjective I can try to sit up. Instructed Patient on bed mobility of rolling side to side in order to complete brief change. Patient was incontinet of bowel mgt tr this date. Patient required Max A x2 to complete all rolling, brief changing, perineal hygiene and supine-> si
--- NOTE | 2021-03-22 10:47 | HMH.PTEV ---
Physical Therapy Evaluation Rehab PT IP Evaluation Start: 03/22/21 08:26 Freq: ONCE Status: Active Protocol: Document 03/22/21 10:38 PWLELAAMS (Rec: 03/22/21 10:47 [email or web address] [id number]) Subjective/History History History This is the inital evaluation for Renan Goncalves. Pt is a 76 y/ o male admitted to [facility] from detention status post stroke with sequela of seizure disorder, dysarthria and dysphagia issues who presented to the ER from the detention with cough, fever, mental status changes and sluggishness. - note done by Kirstie Kenny, SPT Subjective Subjective Pt was very somnulent at this time. Pt had difficulty keeping eyes open as well as communicating. Pt answered with one word answers. Rehab PT IP Eval Objective Appearance Patient Behavior Sedated,Fatigued,Asleep Difficulty following instructions severe Speech Pattern Slurred,Garbled,Aphasic,Soft- Spoken,Stuttering,Monotone, Mumbled,Poor Articulation Ambulation Patient Able to Ambulate No Balance Ability to Arise Unable Sitting Balance Leans or slides in chair Dynamic Sitting Balance Ability Zero Transfers Bed Transfer Ability Maximum x 2 (75% assist) Rehab PT IP prob,goals,plan Problems Date of Evaluation: 03/22/21 PT IP Problems Bed Mobility,Transfers,Gait, Balance,Self care,Safety Rehab Potential Rehab Potential Fair Equipment Needs Assistive Devices Rolling / Wheeled Walker Plan PT Intervention Plan Bed Mobility,Transfers,Gait, Balance,Self care,Safety, Therapeutic Exercise PT Plan Frequency BID Duration LOS Discharge Goals Bed Transfer Ability Maximum x 2 (75% assist) Sit to Stand Chair Transfer Ability Maximum x 2 (75% assist) Ambulation Assistive Device Rolling Walker Discharge Plan PT Discharge Plan Pt will benefit from skilled therapy while at [facility] to aid in avoidance of further decline in bed mobility, transfers, and safety. Once pt is medically stable, h
[2021-03-22 21:11] LABS: POC Glucose,Bedside 120 (70-110)
[2021-03-22 21:21] LABS: POC Glucose,Bedside 113 (70-110)
[2021-03-23 04:00] VITALS: BP 166/80; PULSE 69; RESP 16; TEMP 36.7; O2SAT 95
[2021-03-23 04:49] VITALS: BMI 40.7
--- NOTE | 2021-03-23 05:57 | PC.NURSE ---
No acute events t/o the night, pt rested well. Remains on 3L NC with no c/o of SOA. Alva remains in place draining dark yellow urine. Call light within reach.
[2021-03-23 06:01] VITALS: PULSE 90; PULSE 97; O2SAT 92
[2021-03-23 06:24] LABS: POC Glucose,Bedside 126 (70-110)
[2021-03-23 06:46] LABS: Basophils % 0.3 % (0.1-2.0); Eosinophils # 0.2 K/mm3 (0.0-0.4); Eosinophils % 2.6 % (0.1-12.0); Hematocrit 35.4 % (42.0-52.0); Hemoglobin 11.5 g/dL (14.1-18.0); Lymphocytes # 0.9 K/mm3 (0.7-4.5); Lymphocytes % 13.3 % (10-50); Mean Corpuscular HGB Conc 32.4 g/dL (31.8-35.4); Mean Corpuscular Hemoglobin 29.7 pg (27.0-31.2); Mean Corpuscular Volume 91.7 fl (80-94); Mean Platelet Volume 7.9 fl (7.4-10.4); Monocytes # 0.6 K/mm3 (0.1-1.0); Monocytes % 8.9 % (1.7-9.3); Neutrophils # 5.2 K/mm3 (1.8-7.8); Neutrophils % 74.9 % (37.0-80.0); Platelet Count 167 K/mm3 (142-424); Red Blood Count 3.86 M/mm3 (4.60-6.20); Red Cell Distribution Width 14.9 % (11.5-17.5)
[2021-03-23 06:52] LABS: Chloride 100 mmol/L (98-107); Sodium 138 mmol/L (136-145)
[2021-03-23 06:54] LABS: Blood Urea Nitrogen 18 mg/dl (9-20); Creatinine Clearance Estimated 55 mL/min (50-200); Estimated Glomerular Filt Rate 59 ml/min (>60); GFR (African American) 71 ML/MIN (>60)
[2021-03-23 06:55] LABS: Carbon Dioxide 32 mmol/L (22.0-30.0); Glucose 110 mg/dl (74-100)
[2021-03-23 08:00] VITALS: BP 194/91; PULSE 69; RESP 18; RESP 19; TEMP 37.2; O2SAT 94
--- NOTE | 2021-03-23 08:00 | PC.NURSE ---
CRITICAL POTASSIUM LEVEL NOTIFICATION FROM LAB. NAME/ VERIFIED. NOTIFIED DURING ROUNDS THIS AM
--- NOTE | 2021-03-23 09:56 | HMH.ACPN2 ---
Internal Medicine - PN: Subj *Date: 03/23/21 *Time: 21:21 Interval history: 76 YOM sitting up in bed, denies any SOA or CP during night. Urine culture with Gram Neg Rods, on Ceftriaxone. K 3.2, will replenish. Exam Vital signs and Labs for Last 24 Hours: Temp Pulse Resp BP Pulse Ox 98.9 F 69 18 194/91 H 94 L 03/23/21 08:00 03/23/21 08:00 03/23/21 08:00 03/23/21 08:00 03/23/21 08:00 Laboratory Results - last 24 hr 03/22/21 05:41: POC Glucose 113 H 03/22/21 20:26: POC Glucose 120 H 03/23/21 06:01: WBC 7.0, RBC 3.86 L, Hgb 11.5 L, Hct 35.4 L, MCV 91.7, MCH 29.7, MCHC 32.4, RDW 14.9, Plt Count 167, MPV 7.9, Neut % (Auto) 74.9, Lymph % (Auto) 13.3, [place] % (Auto) 8.9, Eos % (Auto) 2.6, Baso % (Auto) 0.3, Neut # (Auto) 5.2, Lymph # (Auto) 0.9, [place] # (Auto) 0.6, Eos # (Auto) 0.2, Baso # (Auto) 0.0 03/23/21 06:01: Sodium 138, Potassium 3.0 L, Chloride 100, Carbon Dioxide 32 H, Anion Gap 9.0, BUN 18, Creatinine 1.20, Estimated Creat Clear 55, Estimated GFR 59, Est GFR ( Amer) 71, Glucose 110 H D, Calcium 8.0 L 03/23/21 06:16: POC Glucose 126 H I & O for Last 24 hours: Intake & Output 03/20/21 03/21/21 03/22/21 03/23/21 23:59 23:59 23:59 23:59 Intake Total 560 / 560 Output Total 2100 / 2600 500 / 500 Balance -2100 / -2600 60 / 60 Weight 292 lb 8 oz 291 lb 0.163 oz 291 lb Microbiology Reports for the Last 24 Hours: Microbiology 03/21/21 16:45 Blood - Not Otherwise Specified Blood Culture - Preliminary 03/21/21 16:03 Urine,Clean Catch Urine Culture - Preliminary - Constitutional no acute distress, chronically ill appearing - *Routine HEENT Exam Head: Present: normocephalic Eye: Present: EOMI ENT: Present: mucous membranes moist - *Routine Neck Exam Present: trachea midline. Absent: tracheal deviation - *Routine Respiratory Exam Present: diminished air movement. Absent: accessory muscle use - *Routine Cardiovascular Exam Present: RRR - *Routine Abdominal Exam Present: soft, normoactive bowel sounds. Absent: tenderness - *Routine Extremities Exam Present: edema, full ROM, pulses intact. Absent: cyanosis, clubbing - *Routine Skin Exam Present: dry, wounds. Absent: intact, cyanosis Comments: Bilat feet with drsg C/D/I - *Routine Neurological Exam Present: alert, oriented X3. Absent: motor deficit - Routine Psychiatric Exam Present: normal affect, normal thought process. Absent: auditory hallucinations Assessment and Plan (1) SIRS (systemic inflammatory response syndrome) Status: Acute Category: Medical Code(s): R65.10 - Systemic inflammatory response syndrome (SIRS) of non-infectious origin without acute organ dysfunction (2) UTI (urinary tract infection) Status: Acute Category: Medical Code(s): N39.0 - Urinary tract infection, site not specified (3) Dehydration Status: Acute Category: Medical Code(s): E86.0 - Dehydration (4) CHF (congestive heart failure) Status: Chronic Qualifiers: Category: Medical Code(s): I50.9 - Heart failure, unspecified (5) Neurocognitive disorder Status: Chronic Category: Medical Code(s): R41.9 - Unspecified symptoms and signs involving cognitive functions and awareness (6) Chronic combined systolic (congestive) and diastolic (congestive) heart failure Status: Acute Category: Medical Code(s): I50.42 - Chronic combined systolic (congestive) and diastolic (congestive) heart failure (7) Obesity, morbid (more than 100 lbs over ideal weight or BMI > 40) Status: Acute Category: Medical Code(s): E66.01 - Morbid (severe) obesity due to excess calories - Assessment and plan all Dx Assessment and Plan for all problems:: Rounded with Dr. Gonzalez, all orders per Dr. Gonzalez: 1. Cont current medical regimen 2. Awaiting urine culture final 3. Replenish K
[2021-03-23 14:51] LABS: Anion Gap 11.2 mEq/L (5-15); Blood Urea Nitrogen 23 mg/dl (9-20); Calcium 8.5 mg/dl (8.4-10.2); Carbon Dioxide 33 mmol/L (22.0-30.0); Chloride 95 mmol/L (98-107); Creatinine Clearance Estimated 51 mL/min (50-200); Estimated Glomerular Filt Rate 54 ml/min (>60); GFR (African American) 65 ML/MIN (>60); Glucose 161 mg/dl (74-100); Potassium 3.2 mmoL/L (3.5-5.1); Sodium 136 mmol/L (136-145)
[2021-03-23 15:42] VITALS: BP 194/74; PULSE 68; RESP 21; TEMP 37.1; O2SAT 94
[2021-03-23 19:22] VITALS: PULSE 90; PULSE 91
--- NOTE | 2021-03-23 19:55 | PC.NURSE ---
NO ACUTE CHANGES THIS SHIFT. TOLERATED POTASSIUM INFUSION WELL. CONTINUES ON 3LNC WITH NOT SOA OR SIGNS OF DISTRESS NOTED THIS HSIFT. HWANG DRAINING CLEAR YELLOW URINE.
[2021-03-23 20:00] VITALS: BP 194/72; PULSE 66; RESP 18; TEMP 37; O2SAT 97
[2021-03-24] VITALS (7 sets, daily range): BP systolic 168–199; BP diastolic 69–81; PULSE 60–78; RESP 16–19; TEMP 36.5–36.9; O2SAT 93–98; BMI 41.7
[2021-03-24 06:01] LABS: POC Glucose,Bedside 103 (70-110)
[2021-03-24 07:15] LABS: Chloride 99 mmol/L (98-107); Sodium 139 mmol/L (136-145)
[2021-03-24 07:18] LABS: Basophils % 0.3 % (0.1-2.0); Blood Urea Nitrogen 19 mg/dl (9-20); Creatinine Clearance Estimated 60 mL/min (50-200); Eosinophils # 0.3 K/mm3 (0.0-0.4); Eosinophils % 4.8 % (0.1-12.0); Estimated Glomerular Filt Rate 65 ml/min (>60); GFR (African American) 79 ML/MIN (>60); Hematocrit 34.8 % (42.0-52.0); Hemoglobin 11.1 g/dL (14.1-18.0); Lymphocytes # 0.9 K/mm3 (0.7-4.5); Mean Corpuscular Volume 90.6 fl (80-94); Mean Platelet Volume 8.3 fl (7.4-10.4); Monocytes # 0.6 K/mm3 (0.1-1.0); Monocytes % 9.6 % (1.7-9.3); Neutrophils # 4.1 K/mm3 (1.8-7.8); Neutrophils % 70.4 % (37.0-80.0); Platelet Count 186 K/mm3 (142-424); Red Blood Count 3.84 M/mm3 (4.60-6.20); Red Cell Distribution Width 15.2 % (11.5-17.5); White Blood Count 5.8 K/mm3 (4.8-10.8)
[2021-03-24 07:19] LABS: Calcium 8.1 mg/dl (8.4-10.2); Carbon Dioxide 34 mmol/L (22.0-30.0); Glucose 114 mg/dl (74-100)
--- NOTE | 2021-03-24 09:20 | HMH.ACPN2 ---
Internal Medicine - PN: Subj *Date: 03/24/21 *Time: 08:10 Interval history: pt laying in bed, after drinking he is coughing, pt at bedside to get up in chair Exam Vital signs and Labs for Last 24 Hours: Temp Pulse Resp BP Pulse Ox 98.5 F 67 18 168/69 H 93 L 03/24/21 08:00 03/24/21 08:00 03/24/21 08:00 03/24/21 08:00 03/24/21 08:00 Laboratory Results - last 24 hr 03/21/21 16:03: Urine Color Yellow, Urine Appearance Sl cloudy, Urine pH 6.0, Ur Specific [place] 1.025, Urine Protein 2+, Urine Glucose (UA) Negative, Urine Ketones Negative, Urine Blood 2+, Urine Nitrate Negative, Urine Bilirubin Negative, Urine Urobilinogen 0.2, Ur Leukocyte Esterase 2+ A, Urine RBC 3-5, Urine WBC 20-50, Ur Squamous Epith Cells 3-5, Urine Bacteria 2+ 03/23/21 14:34: Sodium 136, Potassium 3.2 L, Chloride 95 L, Carbon Dioxide 33 H, Anion Gap 11.2, BUN 23 H D, Creatinine 1.30 H, Estimated Creat Clear 51, Estimated GFR 54 L, Est GFR ( Amer) 65, Glucose 161 H D, Calcium 8.5 03/24/21 05:48: POC Glucose 103 03/24/21 06:41: WBC 5.8, RBC 3.84 L, Hgb 11.1 L, Hct 34.8 L, MCV 90.6, MCH 29.0, MCHC 32.0, RDW 15.2, Plt Count 186, MPV 8.3, Neut % (Auto) 70.4, Lymph % (Auto) 15.0, [place] % (Auto) 9.6 H, Eos % (Auto) 4.8, Baso % (Auto) 0.3, Neut # (Auto) 4.1, Lymph # (Auto) 0.9, [place] # (Auto) 0.6, Eos # (Auto) 0.3, Baso # (Auto) 0.0 03/24/21 06:41: Sodium 139, Potassium 3.0 L, Chloride 99, Carbon Dioxide 34 H, Anion Gap 9.0, BUN 19, Creatinine 1.10, Estimated Creat Clear 60, Estimated GFR 65, Est GFR ( Amer) 79 D, Glucose 114 H D, Calcium 8.1 L I & O for Last 24 hours: Intake & Output 03/21/21 03/22/21 03/23/21 03/24/21 11:59 11:59 11:59 11:59 Intake Total 560 / 560 720 / 720 Output Total 1400 / 1400 1200 / 1200 1700 / 1700 Balance -1400 / -1400 -640 / -640 -980 / -980 Weight 291 lb 0.163 oz 291 lb 298 lb 1.6 oz Microbiology Reports for the Last 24 Hours: Microbiology 03/21/21 16:03 Urine,Clean Catch Urine Culture - Final Proteus mirabilis 03/21/21 16:45 Blood - Not Otherwise Specified Blood Culture - Final Staphylococcus capitis 03/21/21 16:45 Blood - Not Otherwise Specified Blood Culture - Preliminary NO GROWTH AFTER 48 HOURS - Constitutional no acute distress, obese - *Routine HEENT Exam Head: Present: normocephalic Eye: Present: PERRL ENT: Present: mucous membranes moist - *Routine Neck Exam Present: supple. Absent: lymphadenopathy - *Routine Respiratory Exam Present: CTA bilaterally - *Routine Cardiovascular Exam Present: RRR - *Routine Abdominal Exam Present: soft, normoactive bowel sounds. Absent: tenderness - *Routine Extremities Exam Present: edema. Absent: cyanosis, clubbing Comments: linda wraps to cesar lower ext - *Routine Skin Exam Present: warm. Absent: rash - *Routine Neurological Exam Present: alert Assessment and Plan (1) SIRS (systemic inflammatory response syndrome) Status: Acute Category: Medical Code(s): R65.10 - Systemic inflammatory response syndrome (SIRS) of non-infectious origin without acute organ dysfunction (2) UTI (urinary tract infection) Status: Acute Category: Medical Code(s): N39.0 - Urinary tract infection, site not specified (3) Dehydration Status: Acute Category: Medical Code(s): E86.0 - Dehydration (4) CHF (congestive heart failure) Status: Chronic Qualifiers: Category: Medical Code(s): I50.9 - Heart failure, unspecified (5) Neurocognitive disorder Status: Chronic Category: Medical Code(s): R41.9 - Unspecified symptoms and signs involving cognitive functions and awareness (6) Chronic combined systolic (congestive) and diastolic (congestive) heart failure Status: Acute Category: Medical Code(s): I50.42 - Chronic combined systolic (congestive) and diastolic (congestive) heart failure (7) Obesity, morbid (more
--- NOTE | 2021-03-24 09:30 | XR_ITS ---
PROCEDURE: XR CHEST PORTABLE CLINICAL HISTORY: cough COMPARISON: CR [id number] XR chest portable from 07/10/2018 CR XR CHEST PORTABLE from 04/21/2019 CR XR CHEST PORTABLE from 03/21/2021 FINDINGS: Cardiomegaly without failure. Patient's chin obscures the upper mediastinum and lung apices on both sides greater on the right. Underlying pathology in these areas not excluded due to the artifact. Atelectatic changes are present in the left mid to lower lung zone Degenerative changes of the shoulders IMPRESSION: New area of atelectasis in the left mid to lower lung zone Dictated by: Samuel Marino MD 03/24/2021 11:56 Samuel Marino MD in [facility] 03/24/2021 11:56
--- NOTE | 2021-03-24 11:31 | HMH.SLDYSPHA ---
Speech & Language Evaluation Speech/Language Dysphagia Evaluation Start: 03/24/21 11:19 Freq: ONCE Status: Active Protocol: Document 03/24/21 11:19 PAOLADEN (Rec: 03/24/21 11:30 PAOLAIGORARDHAANIKA [id number]) Dysphagia Assess/Goals/Plan Assessment Date of Evaluation: 03/24/21 Evaluation Type Initial Certification Assessment/Problems Coughing Does Patient Qualify for Service No Qualify/Failure Comment Based on the results of the dyspagia evaluation, Pt does not qualify for skilled speech therapy services at this time . Recommendations PHYSICIAN CERTIFICATION: The specified therapy services are required, authorized, and reviewed every 30 days. Diet Recommendations Normal Liquid Type Recommendations Normal/Thin Dysphagia Swallow Precautions/Strategies Sitting Upright (90 deg),Small Bites and Sips Place Food on Either side of Mouth Plan Pt/Guardian verbally ack understanding Yes of dx/prognosis/goals Pt/Guardian verbally ack understanding Yes of/consent to tx prog G -code Required No Education Instructions provided Diet recommendations discussed with patient, care management , and RN. Pt/Caregiver able to recall information Unable to ind. understand Reinforcement needed No Speech & Language HPI History Present Illness Description of Patient Problem Patient admitted from [facility] s/p CVA with acute UTI. He is currently on a regular cardiac diet with thin liquids . PMH: CVA, falls, seizure disorder, GERD, paranoid schizophrenia. Pt/Caregiver Concerns Intermittent coughing Rehab Services Assessed Speech therapy Is this evaluation r/t stroke? No General Information General Current Food Consistancy Regular,Thin Liquids Oxygen Status Nasal Cannula Facial Symmetry Symmetrical Ability to Follow Directions Good Communication Ability No Impairment Dysphagia:Food Presentation Evaluation Food Type Pureed,Mechanical Soft,Regular ,Liquid,Pudding Dysphagia Evaluation Mechanical Soft Coughing after swallow Food Behavior Response Dysphagia Evaluation Regular Food Coughing after swallow Behavior Response Dysphagia Evaluation Summary Clinical swallow evaluation completed to analyze and assess oropharyngeal swallow.
[2021-03-25] VITALS: BP 168/74; PULSE 68; RESP 19; TEMP 36.6; O2SAT 93
[2021-03-25 04:00] VITALS: BP 162/60; PULSE 68; RESP 18; TEMP 36.7; O2SAT 92
[2021-03-25 05:50] VITALS: BMI 41.8
[2021-03-25 06:10] VITALS: PULSE 61; PULSE 67; O2SAT 95
[2021-03-25 06:57] LABS: Basophils % 0.5 % (0.1-2.0); Eosinophils # 0.3 K/mm3 (0.0-0.4); Hematocrit 33.5 % (42.0-52.0); Hemoglobin 10.9 g/dL (14.1-18.0); Lymphocytes # 0.8 K/mm3 (0.7-4.5); Mean Corpuscular HGB Conc 32.5 g/dL (31.8-35.4); Mean Corpuscular Hemoglobin 29.3 pg (27.0-31.2); Mean Corpuscular Volume 90.3 fl (80-94); Mean Platelet Volume 8.2 fl (7.4-10.4); Monocytes # 0.4 K/mm3 (0.1-1.0); Monocytes % 7.2 % (1.7-9.3); Neutrophils # 3.3 K/mm3 (1.8-7.8); Neutrophils % 68.4 % (37.0-80.0); Platelet Count 192 K/mm3 (142-424); Red Cell Distribution Width 15.2 % (11.5-17.5); White Blood Count 4.9 K/mm3 (4.8-10.8)
[2021-03-25 07:03] LABS: Chloride 102 mmol/L (98-107)
[2021-03-25 07:04] LABS: Potassium 3.2 mmoL/L (3.5-5.1); Sodium 140 mmol/L (136-145)
[2021-03-25 07:07] LABS: Anion Gap 10.2 mEq/L (5-15); Blood Urea Nitrogen 16 mg/dl (9-20); Calcium 8.1 mg/dl (8.4-10.2); Carbon Dioxide 31 mmol/L (22.0-30.0); Creatinine Clearance Estimated 66 mL/min (50-200); Estimated Glomerular Filt Rate 82 ml/min (>60); GFR (African American) 100 ML/MIN (>60); Glucose 116 mg/dl (74-100)
--- NOTE | 2021-03-25 07:31 | DIET.NUTRFU ---
Pt PO intake has been fluctuating with 50% recorded intake at last two meals. Diet being supplemented with glucerna BID. [facility] has completed a bedside evaluation and recommended a regular diet with thin liquids. Glucose 161, 114, 116. Potassium remains low at 3.2. Will continue to monitor.
[2021-03-25 07:46] VITALS: BP 184/75; PULSE 69; RESP 24; TEMP 36.7; O2SAT 93
[2021-03-25 09:36] LABS: Coronavirus 19, PCR Not Detected (NotDetected); Influenza A, PCR Not Detected (NotDetected); Influenza B, PCR Not Detected (NotDetected)
--- NOTE | 2021-03-25 09:42 | SW/DCPLANNER ---
This patient will discharge back to [place] today under [facility]. I have spoke with Azucena from [place] to update her. COVID swab has been ordered prior to discharge.
--- NOTE | 2021-03-25 09:57 | HMH.DCSUM ---
General - General Admission date:: 03/23/21 Discharge date: 03/25/21 HPI HPI: 76-year-old white male, care home resident status post stroke with sequela of seizure disorder, dysarthria and dysphagia issues who presented to the ER from the care home with cough, fever, mental status changes and sluggishness. In the ER he was found to have confusion, evidence of significant UTI with minimal white count elevation and mild KARINA. Admitted to hospital for further diagnostic testing, IV fluids, IV antibiotics and electrolyte monitoring and culture results. Hospital Course Hospital Course: Laboratory Tests 03/21/21 03/21/21 03/21/21 15:25 15:28 15:28 WBC 9.0 RBC 4.21 L Hgb 12.4 L Hct 38.6 L MCV 91.6 MCH 29.3 MCHC 32.0 RDW 15.2 Plt Count 190 MPV 8.0 Neut % (Auto) 81.9 H Lymph % (Auto) 9.3 L [place] % (Auto) 7.7 Eos % (Auto) 0.7 Baso % (Auto) 0.4 Neut # (Auto) 7.4 Lymph # (Auto) 0.8 [place] # (Auto) 0.7 Eos # (Auto) 0.1 Baso # (Auto) 0.0 VBG pH VBG pCO2 VBG pO2 VBG HCO3 VBG Total CO2 VBG O2 Saturation VBG Base Excess Sodium 137 Potassium 4.5 Chloride 101 Carbon Dioxide 30 Anion Gap 10.5 BUN 14 Creatinine 1.30 H Estimated Creat Clear 88 Estimated GFR 54 L Est GFR ( Amer) 65 Glucose 135 H POC Glucose 128 H Calcium 8.0 L Phosphorus Total Bilirubin 1.1 AST 54 ALT 18 Alkaline Phosphatase 46 Troponin I 0.03 NT-Pro-B Natriuret Pep Total Protein 7.4 Albumin 3.7 Globulin 3.7 H Albumin/Globulin Ratio 1.0 L Urine Color Urine Appearance Urine pH Ur Specific [place] Urine Protein Urine Glucose (UA) Urine Ketones Urine Blood Urine Nitrate Urine Bilirubin Urine Urobilinogen Ur Leukocyte Esterase Urine RBC Urine WBC Ur Squamous Epith Cells Urine Bacteria SARS-CoV-2 (PCR) Influenza A Untype (PCR) Influenza Type B (PCR) 03/21/21 03/21/21 03/21/21 15:28 15:29 16:03 WBC RBC Hgb Hct MCV MCH MCHC RDW Plt Count MPV Neut % (Auto) Lymph % (Auto) [place] % (Auto) Eos % (Auto) Baso % (Auto) Neut # (Auto) Lymph # (Auto) [place] # (Auto) Eos # (Auto) Baso # (Auto) VBG pH 7.49 H VBG pCO2 35.3 VBG pO2 65.9 H VBG HCO3 26.0 VBG Total CO2 27.1 H VBG O2 Saturation 93.8 H VBG Base Excess 2.6 H Sodium Potassium Chloride Carbon Dioxide Anion Gap BUN Creatinine Estimated Creat Clear Estimated GFR Est GFR ( Amer) Glucose POC Glucose Calcium Phosphorus Total Bilirubin AST ALT Alkaline Phosphatase Troponin I NT-Pro-B Natriuret Pep 4920 H Total Protein Albumin Globulin Albumin/Globulin Ratio Urine Color Yellow Urine Appearance Sl cloudy Urine pH 6.0 Ur Specific [place] 1.025 Urine Protein 2+ Urine Glucose (UA) Negative Urine Ketones Negative Urine Blood 2+ Urine Nitrate Negative Urine Bilirubin Negative Urine Urobilinogen 0.2 Ur Leukocyte Esterase 2+ A Urine RBC 3-5 Urine WBC 20-50 Ur Squamous Epith Cells 3-5 Urine Bacteria 2+ SARS-CoV-2 (PCR) Influenza A Untype (PCR) Influenza Type B (PCR) 03/21/21 03/21/21 03/21/21 18:40 19:25 21:26 WBC RBC Hgb Hct MCV MCH MCHC RDW Plt Count MPV Neut % (Auto) Lymph % (Auto) [place] % (Auto) Eos % (Auto) Baso % (Auto) Neut # (Auto) Lymph # (Auto) [place] # (Auto) Eos # (Auto) Baso # (Auto) VBG pH VBG pCO2 VBG pO2 VBG HCO3 VBG Total CO2 VBG O2 Saturation VBG Base Excess Sodium Potassium Chloride Carbon Dioxide Anion Gap BUN Creatinine Estimated Creat Clear Estimated GFR Est GFR ( Amer)
--- NOTE | 2021-03-25 10:27 | HMH.ACPN2 ---
Internal Medicine - PN: Subj *Date: 03/25/21 *Time: 10:27 Exam Vital signs and Labs for Last 24 Hours: Temp Pulse Resp BP Pulse Ox 98.1 F 69 24 184/75 H 93 L 03/25/21 07:46 03/25/21 07:46 03/25/21 07:46 03/25/21 07:46 03/25/21 07:46 Laboratory Results - last 24 hr 03/25/21 06:25: WBC 4.9, RBC 3.70 L, Hgb 10.9 L, Hct 33.5 L, MCV 90.3, MCH 29.3, MCHC 32.5, RDW 15.2, Plt Count 192, MPV 8.2, Neut % (Auto) 68.4, Lymph % (Auto) 17.0, [place] % (Auto) 7.2, Eos % (Auto) 7.0, Baso % (Auto) 0.5, Neut # (Auto) 3.3, Lymph # (Auto) 0.8, [place] # (Auto) 0.4, Eos # (Auto) 0.3, Baso # (Auto) 0.0 03/25/21 06:25: Sodium 140, Potassium 3.2 L, Chloride 102, Carbon Dioxide 31 H, Anion Gap 10.2, BUN 16, Creatinine 0.90, Estimated Creat Clear 66, Estimated GFR 82, Est GFR ( Amer) 100 D, Glucose 116 H, Calcium 8.1 L 03/25/21 09:26: SARS-CoV-2 (PCR) Not detected, Influenza A Untype (PCR) Not detected, Influenza Type B (PCR) Not detected I & O for Last 24 hours: Intake & Output 03/22/21 03/23/21 03/24/21 03/25/21 23:59 23:59 23:59 23:59 Intake Total 1040 / 1040 720 / 720 Output Total 2100 / 2600 1300 / 1600 1500 / 1500 Balance -2100 / -2600 -260 / -560 -780 / -780 Weight 132 kg 131.995 kg 135.216 kg 135.352 kg Microbiology Reports for the Last 24 Hours: Microbiology 03/21/21 16:03 Urine,Clean Catch Urine Culture - Final Proteus mirabilis 03/21/21 16:45 Blood - Not Otherwise Specified Blood Culture - Final Staphylococcus capitis Assessment and Plan (1) SIRS (systemic inflammatory response syndrome) Status: Acute Category: Medical Code(s): R65.10 - Systemic inflammatory response syndrome (SIRS) of non-infectious origin without acute organ dysfunction (2) UTI (urinary tract infection) Status: Acute Category: Medical Code(s): N39.0 - Urinary tract infection, site not specified (3) Dehydration Status: Acute Category: Medical Code(s): E86.0 - Dehydration (4) CHF (congestive heart failure) Status: Chronic Qualifiers: Category: Medical Code(s): I50.9 - Heart failure, unspecified (5) Neurocognitive disorder Status: Chronic Category: Medical Code(s): R41.9 - Unspecified symptoms and signs involving cognitive functions and awareness (6) Chronic combined systolic (congestive) and diastolic (congestive) heart failure Status: Acute Category: Medical Code(s): I50.42 - Chronic combined systolic (congestive) and diastolic (congestive) heart failure (7) Obesity, morbid (more than 100 lbs over ideal weight or BMI > 40) Status: Acute Category: Medical Code(s): E66.01 - Morbid (severe) obesity due to excess calories (8) Chronic paranoid schizophrenia Status: Chronic Category: Medical Code(s): F20.0 - Paranoid schizophrenia (9) GERD (gastroesophageal reflux disease) Status: Chronic Qualifiers: Esophagitis presence: esophagitis presence not specified Qualified Code(s): K21.9 - Gastro-esophageal reflux disease without esophagitis Category: Medical Code(s): K21.9 - Gastro-esophageal reflux disease without esophagitis (10) HTN (hypertension) Status: Chronic Qualifiers: Hypertension type: essential hypertension Qualified Code(s): I10 - Essential (primary) hypertension Category: Medical Code(s): I10 - Essential (primary) hypertension (11) Mass of pancreas Status: Chronic Category: Medical Code(s): K86.89 - Other specified diseases of pancreas The patient's infection will respond to the chosen ABx?: Yes Is the patient receiving the right drug, dose, and route?: Yes Could a more targeted ABx be ordered?: No
== END 2021-03-25 12:15 | DRG 690 ==
LOC: ER 15:23 → 2ND 21:44
PROVIDERS: Internal Medicine Adolescent Medicine; Nurse Practitioner Family; Admitting Provider Emergency Medicine; Emergency Provider Student in an Organized Health Care Education/Training Program; PCP Emergency Medicine; Visit Provider Emergency Medicine
DX: N39.0 Urinary tract infection, site not specified (principal); N17.9 Acute kidney failure, unspecified; G40.802 Other epilepsy, not intractable, without status epilepticus; Z68.41 Body mass index [BMI] 40.0-44.9, adult; F20.0 Paranoid schizophrenia; I50.42 Chronic combined systolic (congestive) and diastolic (congestive) heart failure; I11.0 Hypertensive heart disease with heart failure; Z20.822 Contact with and (suspected) exposure to COVID-19; E86.0 Dehydration; Z66 Do not resuscitate; E66.01 Morbid (severe) obesity due to excess calories; B96.4 Proteus (mirabilis) (morganii) as the cause of diseases classified elsewhere; K86.9 Disease of pancreas, unspecified; A49.8 Other bacterial infections of unspecified site; F03.90 Unspecified dementia, unspecified severity, without behavioral disturbance, psychotic disturbance, mood disturbance, and anxiety; I69.322 Dysarthria following cerebral infarction; I69.391 Dysphagia following cerebral infarction; R13.10 Dysphagia, unspecified; G40.909 Epilepsy, unspecified, not intractable, without status epilepticus
CPT/HCPCS: 36415; 71045; 80048; 80053; 81001; 82803; 82962; 83880; 84100; 84484; 85025; 87040; 87077; 87086; 87088; 87186; 92610; 93005; 94640; 96365; 97110; 97163; 97165; 97530; 99284; C9803; G0378; U0003; U0005

== ENCOUNTER 2021-07-20 07:19 | Inpatient (IN) | payer MEDICARE, MEDICAID, SELFPAY ==
[2021-07-20] VITALS (19 sets, daily range): BP systolic 134–191; BP diastolic 36–98; PULSE 37–94; RESP 16–26; TEMP 36.6–38.2; O2SAT 87–98; BMI 39.0; BMI 39.2
--- NOTE | 2021-07-20 07:31 | XR_ITS ---
FINAL REPORT CLINICAL HISTORY: COUGH; obesity; patient unable to move COMPARISON: 03/24/2021 FINDINGS: SINGLE-VIEW CHEST There is mild cardiomegaly. The mediastinum is normal. The lungs are under inflated with chronic changes at the bases. There is no pneumothorax. IMPRESSION: No acute cardiopulmonary process. Reviewed, Interpreted and Dictated by Les Nelson MD Transcribed by Beth Last Authenticated by Les Nelson MD on 07/20/2021 08:44:02 AM [facility]
--- NOTE | 2021-07-20 07:34 | HMH.EDFEV ---
ED Disposition Clinical Impression: SIRS (systemic inflammatory response syndrome), Chronic combined systolic (congestive) and diastolic (congestive) heart failure, KARINA (acute kidney injury), Obesity (BMI 30-39.9), Cellulitis of both lower extremities UTI (urinary tract infection) Qualifiers: Urinary tract infection type: site unspecified Hematuria presence: without hematuria Qualified Code(s): N39.0 - Urinary tract infection, site not specified Disposition: Admitted As Inpatient Condition on Discharge: Fair Referrals: Jeb Gonzalez MD [Primary Care Provider] - - Critical Care Critical Care Time: No Attestation: On 07/20/21, the high probability of a clinically significant, sudden or life threatening deterioration of the following system(s) required my full and direct attention, intervention and personal management. The time I documented below is in addition to time spent performing reported procedures but includes the following listed in this critical care notation. Medical Decision Making - Medical Records Medical records reviewed: Yes: I reviewed the patient's medical records. - Miles Inquiry Pt receiving controlled substance: No Vital Signs: 07/20/21 07:21 07/20/21 07:31 07/20/21 07:35 Temperature 100.3 F H Temperature Source Oral Pulse Rate 80 Pulse Rate [Radial] 86 Respiratory Rate 26 H 22 Blood Pressure 149/53 H Blood Pressure [Right Arm] 163/71 H Blood Pressure Mean [Right Arm] 101 Blood Pressure Position [Right Arm] Sitting 02 Sat by Pulse Oximetry 87 L 93 L 94 L Oxygen Delivery Method Room Air Nasal Cannula Oxygen Flow Rate (LPM) 3 07/20/21 08:01 07/20/21 08:31 07/20/21 09:01 Temperature Temperature Source Pulse Rate 73 81 37 L Pulse Rate [Radial] Respiratory Rate 20 22 21 Blood Pressure 162/56 H 134/60 140/52 L Blood Pressure [Right Arm] Blood Pressure Mean [Right Arm] Blood Pressure Position [Right Arm] 02 Sat by Pulse Oximetry 95 91 L 91 L Oxygen Delivery Method Oxygen Flow Rate (LPM) 07/20/21 09:31 07/20/21 10:01 07/20/21 10:31 Temperature Temperature Source Pulse Rate 37 L 53 L 38 L Pulse Rate [Radial] Respiratory Rate 19 24 26 H Blood Pressure 144/71 H 154/36 H 164/70 H Blood Pressure [Right Arm] Blood Pressure Mean [Right Arm] Blood Pressure Position [Right Arm] 02 Sat by Pulse Oximetry 93 L 94 L 94 L Oxygen Delivery Method Oxygen Flow Rate (LPM) - Lab Data Lab results reviewed: Yes: I reviewed the patient's lab results. Lab Results 07/20/21 07:22: WBC 19.1 H, RBC 3.72 L, Hgb 11.4 L, Hct 35.7 L, MCV 95.8 H, MCH 30.6, MCHC 32.0, RDW 15.5, Plt Count 174, MPV 9.1, Neut % (Auto) 90.5 H, Lymph % (Auto) 3.9 L, Atkinson % (Auto) 4.7, Eos % (Auto) 0.7, Baso % (Auto) 0.2, Neut # (Auto) 17.3 H, Lymph # (Auto) 0.7, Atkinson # (Auto) 0.9, Eos # (Auto) 0.1, Baso # (Auto) 0.0, Total Counted 100, Neutrophils % (Manual) 91 H, Lymphocytes % (Manual) 4 L, Monocytes % (Manual) 5, Platelet Estimate Normal, RBC Morphology Normal 07/20/21 07:22: Sodium 138, Potassium 2.9 L*, Chloride 100, Carbon Dioxide 33 H, Anion Gap 7.9, BUN 28 H, Creatinine 1.60 H, Estimated Creat Clear 72, Estimated GFR 42 L, Est GFR ( Amer) 51 L, Glucose 131 H, Calcium 7.6 L, Total Bilirubin 0.9, AST 27, ALT 19, Alkaline Phosphatase 75, C-Reactive Protein 306.5 H, Total Protein 6.7, Albumin 3.3 L, Globulin 3.4 H, Albumin/Globulin Ratio 1.0 L 07/20/21 07:22: Lactate 1.0 07/20/21 07:22: Procalcitonin 0.199 07/20/21 07:22: ESR > 140 H 07/20/21 07:24: SARS-CoV-2 (PCR) Not detected, Influenza A Untype (PCR) Not detected, Influenza Type B (PCR) Not detected 07/20/21 08:20: Urine Color Yellow, Urine Appearance Clear, Urine pH 6.0, Ur Specific Beasley 1.025, Urine Protein 3+, Urine Glucose (UA) Negative, Urine Ketones Negative, Urine Blood 3+, Urine Nitrate Negative, Urine Bilirubin Negative, Urine Urobilinogen 1.0, Ur Leukocyte Esterase 2+ A, Urine RBC 10-20, Urin
[2021-07-20 07:35] LABS: Coronavirus 19, PCR Not Detected (NotDetected); Influenza A, PCR Not Detected (NotDetected); Influenza B, PCR Not Detected (NotDetected)
[2021-07-20 07:42] LABS: Basophils % 0.2 % (0.1-2.0); Eosinophils # 0.1 K/mm3 (0.0-0.4); Eosinophils % 0.7 % (0.1-12.0); Hematocrit 35.7 % (42.0-52.0); Hemoglobin 11.4 g/dL (14.1-18.0); Lymphocytes # 0.7 K/mm3 (0.7-4.5); Lymphocytes % 3.9 % (10-50); Mean Corpuscular Hemoglobin 30.6 pg (27.0-31.2); Mean Corpuscular Volume 95.8 fl (80-94); Mean Platelet Volume 9.1 fl (7.4-10.4); Monocytes # 0.9 K/mm3 (0.1-1.0); Monocytes % 4.7 % (1.7-9.3); Neutrophils # 17.3 K/mm3 (1.8-7.8); Neutrophils % 90.5 % (37.0-80.0); Platelet Count 174 K/mm3 (142-424); Red Blood Count 3.72 M/mm3 (4.60-6.20); Red Cell Distribution Width 15.5 % (11.5-17.5); White Blood Count 19.1 K/mm3 (4.8-10.8)
[2021-07-20 07:45] LABS: Chloride 100 mmol/L (98-107); MANUAL DIFFERENTIAL MANUAL DIFFERENTIAL (MANUAL DIFF)
[2021-07-20 07:46] LABS: Sodium 138 mmol/L (136-145)
[2021-07-20 07:48] LABS: Alanine Aminotransferase 19 U/L (12-78); Alkaline Phosphatase 75 U/L (38-126); Aspartate Amino Transferase 27 U/L (17-59); Bilirubin,Total 0.9 mg/dl (0.2-1.3); Blood Urea Nitrogen 28 mg/dl (9-20); Creatinine Clearance Estimated 72 mL/min (50-200); Estimated Glomerular Filt Rate 42 ml/min (>60); GFR (African American) 51 ML/MIN (>60)
[2021-07-20 07:49] LABS: Albumin Level 3.3 g/dl (3.5-5.0); Anion Gap 7.9 mEq/L (5-15); Calcium 7.6 mg/dl (8.4-10.2); Carbon Dioxide 33 mmol/L (22.0-30.0); Globulin 3.4 g/dL (1.3-3.2); Glucose 131 mg/dl (74-100); Total Protein,Serum 6.7 g/dl (6.3-8.2)
[2021-07-20 07:54] LABS: C-Reactive Protein 306.5 mg/L (0-4)
[2021-07-20 07:57] LABS: Potassium 2.9 mmoL/L (3.5-5.1)
[2021-07-20 08:02] LABS: Lymphocytes % 4 % (10-50); Monocytes % 5 % (2-9); Neutrophils % 91 % (42-76); Platelet Estimate Normal; RBC Morphology Normal; Total Cells Counted 100
[2021-07-20 08:06] LABS: Procalcitonin 0.199 ng/mL (0.0-2.0)
[2021-07-20 08:08] LABS: Erythrocyte Sedimentation Rate > 140 mm/hr (0-20)
[2021-07-20 08:27] LABS: Microscopic, Urine URINE MICROSCOPIC (MICROSCOPIC)
[2021-07-20 08:32] LABS: Appearance,Urine CLEAR (Clear); Blood, Urine 3+ (Negative); Color,Urine YELLOW (Yellow); Glucose,Urine (UA) Negative (Negative); Ketones,Urine Negative (Negative); Leukocyte Esterase,Urine 2+ (Negative); Nitrate,Urine Negative (Negative); Protein,Urine 3+ (Negative); Specific Gravity, Urine 1.025 (1.005-1.030)
[2021-07-20 08:35] LABS: Bilirubin,Urine Negative (Negative)
[2021-07-20 08:59] LABS: Bacteria,Urine 2+ /lpf
--- NOTE | 2021-07-20 11:58 | ECG_ITS ---
APPROVED REPORT Exam: Resting ECG HR:77 bpm ECG Measurements Heart Rate 77 AXES TX 262 P 107 QRSd 110 QRS 119 QT 343 T 12 QTc 374 Conclusion SINUS RHYTHM WITH FIRST DEGREE AV BLOCK WITH FREQUENT VENTRICULAR PREMATURE COMPLEXES IN A BIGEMINAL PATTERN POSSIBLE RIGHT VENTRICULAR HYPERTROPHY [SOME/ALL OF: PROMINENT R IN V1, LATE TRANSITION, RAD, MICHAEL, SSS] ST DEVIATION AND MODERATE T-WAVE ABNORMALITY, CONSIDER INFERIOR ISCHEMIA [-0.1+ mV T-WAVE IN II/aVF] ABNORMAL ECG UNCONFIRMED REPORT Electronically signed by : Gabriele England MD 07/22/2021 17:44:11
[2021-07-20 12:01] LABS: NT Pro Brain Natriuretic Pep. 2110 pg/mL (0-450)
[2021-07-20 12:04] LABS: Troponin I 0.02 ng/ml (0.00-0.034)
[2021-07-20 12:08] LABS: T4 (Thyroxine) 5.2 ug/dl (5.53-11.0)
--- NOTE | 2021-07-20 12:26 | PC.NURSE ---
PT GIVEN DIET TRAY
--- NOTE | 2021-07-20 12:26 | PC.NURSE ---
ATTEMPTED TO CALL REPORT NURSE WILL HAVE TO CALL BACK
--- NOTE | 2021-07-20 13:19 | PC.NURSE ---
ATTEMPTED TO CALL REPORT TO FLOOR. IN THE MIDDLE OF PROCEDURE WILL HAVE TO RETURN CALL
--- NOTE | 2021-07-20 13:32 | CA_ITS ---
APPROVED REPORT EXAM: Comprehensive 2D, Doppler, and color-flow Echocardiogram Pbx Supervisor: Meme Garcia, AGATHA, RVS Ht: 5 ft 11 in Wt: 280lbs BSA: 2.43 BP: 140/52 mmHg Indications: CHF,Abn EKG, HTN,, Obesity with immobility,GERD Echo Enhancing Agent Comments: Technically difficult exam due to extreme body habitus. 2D Dimensions IVSd 1.33 cm M: 0.6-1.2 LVEF (Visual) 30.30 % PWd 1.21 cm M: 0.6 - 1.2 LVDd 5.75 cm M: 4.2 - 5.9 LVDs 4.92 cm M: 2.5 - 4.0 Aortic Root 2.92 cm M: 3.1 - 3.7 Left Atrium 3.43 cm M: 3.0 - 4.0 LVOT 1.94 cm (M/F) 1.5-2.5 M-Mode Dimensions LA Diam 4.17 cm (1.9-4.0) LVDd 6.00 cm (3.5-5.7) Ao Diam 3.36 cm (2.0-3.7) LVDs 4.04 cm (3.5-5.7) EF (Teich) 59.00% EPSs 0.63 cm FS 30.00% EDV (Teich) 233.70 mL ESV (Teich) 71.70 mL LV Diastology E Decel Time 203.00 (160-240 msec) E/A Ratio 1.09 MED E' 7.20 (< 7 cm/sec) MED A' 9.00 cm/s E'/MED E' Ratio 12.35 (>14) LAT E' 6.20 (<10 cm/sec) LAT A' 11.40 cm/s E/LAT E' Ratio 14.34 (>14) Aortic Valve LVOT Max 103.00 (70-110 cm/s) LVOT VTI 22.18 cm AoV Peak Hussein. 143.00 (50-130 cm/s) AO Peak GR. 8.10 mmHg AO Mean GR. 4.00 (<5 mmHg) AO VTI 28.11 (18-25 cm) SD (VTI) 2.33 (2.5-4.5 cm2) Mitral Valve MV A Velocity 82.00 (40-130 cm/s) E/A Ratio 1.09 MV Decel. Time 203.00 (160-240 ms) MV Mean Gr. 2.20 (<2mmHg) Pulmonary Valve PV Peak Velocity 60.00 (50-150 cm/s) OR End VMAX 141.00 cm/s Tricuspid Valve TR P. Velocity 194.00 cm/s RAP Estimate 10.00 mmHg RVSP 25.10 mmHg Left Ventricle Technically difficult and poor study because of the patient factors and poor acoustic windows. Left atrium is mildly enlarged, left ventricle is normal size, mild concentric left ventricular hypertrophy, estimated ejection fraction 55% with no regional wall motion abnormality, grade 1 diastolic dysfunction seen without tissue Doppler evidence of raise left atrial pressure. Right Ventricle Right atrium and right ventricle are mildly enlarged with normal contractility. Aortic Valve Aortic valve is minimally thickened and fibrosed there is no aortic stenosis, there is trace aortic insufficiency. Mitral Valve Mitral valve grossly normal, there is trace mitral regurgitation. Tricuspid Valve Tricuspid is grossly normal, there is trace tricuspid regurgitation, tricuspid regurgitation jet velocity is inadequate for calculation of the right ventricular systolic pressure. Pulmonic Valve Pulmonic valve is poorly visualized. Great Vessels Aortic root is normal size. Inferior vena cava is poorly visualized. Pericardium No significant pericardial effusion noted. Conclusion 1. Technically very difficult and poor studies. Mild biatrial enlargement, normal left ventricular size, mild concentric left ventricular hypertrophy, visually estimated ejection fraction 55% with no regional wall motion abnormality, grade 1 diastolic dysfunction seen without tissue Doppler evidence of intra-atrial pressure. 2. Mildly enlarged right ventricle with normal contractility. 3. Trace aortic, mitral and tricuspid regurgitation. 4. No significant pericardial significant 5. Inferior vena cava is poorly visualized. Electronically signed by : Carlos Fields MD 07/20/2021 20:35:03
--- NOTE | 2021-07-20 13:35 | PC.NURSE ---
REPORT CALLED TO FLOOR
[2021-07-20 13:59] LABS: Troponin I 0.02 ng/ml (0.00-0.034)
--- NOTE | 2021-07-20 14:03 | PC.NURSE ---
Pt arrived to the floor at this time
--- NOTE | 2021-07-20 14:15 | P.CONS_ITS ---
History of Present Illness Consult date: 07/20/21 Requesting physician: Jeb Gonzalez Consult reason: congestive heart failure Chief complaint: AMS, UTI, CHF Additional Medical History:: 1. History of CVA with dysarthria and dysphagia 2. Pancreatic mass, enlarging by abdomen CT, 03/2021 3. DNR 4. Hypertension 5. History of GERD 6. Hyperlipidemia 7. Cardiac pacemaker in place History of present illness: 76-year-old white male resident [facility] was transferred to the emergency department for evaluation of altered mental status, cough and fever. Work-up in the ER revealed evidence of UTI along with congestive heart failure (by elevated BNP). Chest x-ray showed no acute process. EKG is sinus rhythm with ventricular bigeminy. Patient has a history of CVA with resultant dysarthria and dysphagia. He is a very poor historian. Information obtained from review of records in chart. Similar presentation with UTI in 03/2021. He is also DNR. Cardiology consulted for diagnosis of CHF, suspect diastolic dysfunction as preliminary echocardiogram today shows what appears to be a preserved ejection fraction. [facility] History Medical History: Reports:: Cancer, Congestive Heart Failure, Cerebrovascular Accident, Gastroesophageal Reflux Disease(GERD), Hyperlipidemia, Hypertension, Internal Pacemaker Denies:: Diabetes Mellitus Type 1, Diabetes Mellitus Type 2, MRSA *Have you ever received a pneumonia vaccine?: Yes *Have you received a flu vaccine this season?: Yes Other Medical History: Reports: Anemia, Other Other Surgeries: Yes: EGD, Pacemaker Amputation: No Fractures: No - *Social History Smoking Status: Never smoker Alcohol Intake: never Substance Use Type: denies use *Occupational Status:: unemployed *Travel in the last 8 weeks: Inside the [facility] Family Hx:: Unable to obtain Meds Home Medications Medication Instructions Recorded Confirmed Type Acetaminophen [Tylenol 500mg 500 mg PO BID 04/21/19 07/20/21 History tablet] Amlodipine Besylate [Amlodipine 5 mg PO DAILY 04/21/19 07/20/21 History 5mg tab] Aspirin [Aspirin 81mg chewable 81 mg PO DAILY 04/21/19 07/20/21 History tab] Atorvastatin Calcium [Lipitor 10mg 10 mg PO QODHS 04/21/19 07/20/21 History Tab] Donepezil HCl [Aricept 5mg 5 mg PO HS 04/21/19 07/20/21 History Tablet] Doxazosin Mesylate [Doxazosin 1mg 1 mg PO HS 04/21/19 07/20/21 History Tab] Furosemide [Lasix 40mg tablet] 40 mg PO BID 04/21/19 07/20/21 History OXcarbazepine [Trileptal] 300 mg PO BID 04/21/19 07/20/21 History Pantoprazole Sodium [Protonix 40mg 40 mg PO DAILY 04/21/19 07/20/21 History tablet] carvediloL [Coreg 25mg Tablet] 25 mg PO BID 04/21/19 07/20/21 History risperiDONE [Risperdal] 2 mg PO BID 04/21/19 07/20/21 History Docusate Sodium 250 mg PO BID 03/22/21 07/20/21 History polyethylene glycoL 3350 [Miralax 17 gm PO DAILY 03/22/21 07/20/21 History 17gm Packet] Ondansetron [Zofran 4mg ODT] 4 mg PO TIDP PRN 07/20/21 07/20/21 History Potassium Chloride [Micro-K 10mEq 10 meq PO DAILY 07/20/21 07/20/21 History cap] Allergies Allergy/AdvReac Type Severity Reaction Status Date / Time No Known Allergies Allergy Verified 02/11/21 17:04 Exam Vital signs and Labs for Last 24 Hours:
--- NOTE | 2021-07-20 14:16 | HMH.HP ---
*Admission Date: 07/20/21 *Chief complaint: Change in mental status *History of present illness: 71-year-old male patient presented to the [facility] emergency department per [place] for reports of fever, low oxygen saturation, cough, generalized weakness, and change in mental status [facility] History I have reviewed the patient's past medical history: Yes Medical History: Reports:: Cancer, Congestive Heart Failure, Cerebrovascular Accident, Gastroesophageal Reflux Disease(GERD), Hyperlipidemia, Hypertension, Internal Pacemaker Denies:: Diabetes Mellitus Type 1, Diabetes Mellitus Type 2, MRSA *Have you ever received a pneumonia vaccine?: Yes *Have you received a flu vaccine this season?: Yes Other Medical History: Reports: Anemia, Other Other Surgeries: Yes: EGD, Pacemaker Amputation: No Fractures: No - *Social History Smoking Status: Never smoker Alcohol Intake: never Substance Use Type: denies use *Occupational Status:: unemployed *Travel in the last 8 weeks: None Family Hx:: Unable to obtain Review of Systems - Review of Systems Review of systems:: unable to obtain Patient is somewhat confused and will not answer questions - *Neurologic Denies abnormal speech, Denies localized weakness, Denies headache(s) Meds Home Medications Medication Instructions Recorded Confirmed Type Acetaminophen [Tylenol 500mg 500 mg PO BID 04/21/19 07/20/21 History tablet] Amlodipine Besylate [Amlodipine 5 mg PO DAILY 04/21/19 07/20/21 History 5mg tab] Aspirin [Aspirin 81mg chewable 81 mg PO DAILY 04/21/19 07/20/21 History tab] Atorvastatin Calcium [Lipitor 10mg 10 mg PO QODHS 04/21/19 07/20/21 History Tab] Donepezil HCl [Aricept 5mg 5 mg PO HS 04/21/19 07/20/21 History Tablet] Doxazosin Mesylate [Doxazosin 1mg 1 mg PO HS 04/21/19 07/20/21 History Tab] Furosemide [Lasix 40mg tablet] 40 mg PO BID 04/21/19 07/20/21 History OXcarbazepine [Trileptal] 300 mg PO BID 04/21/19 07/20/21 History Pantoprazole Sodium [Protonix 40mg 40 mg PO DAILY 04/21/19 07/20/21 History tablet] carvediloL [Coreg 25mg Tablet] 25 mg PO BID 04/21/19 07/20/21 History risperiDONE [Risperdal] 2 mg PO BID 04/21/19 07/20/21 History Docusate Sodium 250 mg PO BID 03/22/21 07/20/21 History polyethylene glycoL 3350 [Miralax 17 gm PO DAILY 03/22/21 07/20/21 History 17gm Packet] Ondansetron [Zofran 4mg ODT] 4 mg PO TIDP PRN 07/20/21 07/20/21 History Potassium Chloride [Micro-K 10mEq 10 meq PO DAILY 07/20/21 07/20/21 History cap] Allergies Allergy/AdvReac Type Severity Reaction Status Date / Time No Known Allergies Allergy Verified 02/11/21 17:04 Exam Vital signs and Labs for Last 24 Hours: Temp Pulse Resp BP Pulse Ox 100.1 F H 60 22 185/68 H 94 L 07/20/21 11:45 07/20/21 13:20 07/20/21 13:20 07/20/21 13:20 07/20/21 13:20 Laboratory Results - last 24 hr 07/20/21 07:22: WBC 19.1 H, RBC 3.72 L, Hgb 11.4 L, Hct 35.7 L, MCV 95.8 H, MCH 30.6, MCHC 32.0, RDW 15.5, Plt Count 174, MPV 9.1, Neut % (Auto) 90.5 H, Lymph % (Auto) 3.9 L, [place] % (Auto) 4.7, Eos % (Auto) 0.7, Baso % (Auto) 0.2, Neut # (Auto) 17.3 H, Lymph # (Auto) 0.7, [place] # (Auto) 0.9, Eos # (Auto) 0.1, Baso # (Auto) 0.0, Total Counted 100, Neutrophils % (Manual) 91 H, Lymphocytes % (Manual) 4 L, Monocytes % (Manual) 5, Platelet Estimate Normal, RBC Morphology Normal 07/20/21 07:22: Sodium 138, Potassium 2.9 L*, Chloride 100, Carbon Dioxide 33 H, Anion Gap 7.9, BUN 28 H, Creatinine 1.60 H, Estimated Creat Clear 72, Estimated GFR 42 L, Est GFR ( Amer) 51 L, Glucose 131 H, Calcium 7.6 L, Total Bilirubin 0.9, AST 27, ALT 19, Alkaline Phosphatase 75, C-Reactive Protein 306.5 H, Total Protein 6.7, Albumin 3.3 L, Globulin 3.4 H, Albumin/Globulin Ratio 1.0 L 07/20/21 07:22: Lactate 1.0 07/20/21 07:22: Procalcitonin 0.199 07/20/21 07:22: ESR > 140 H 07/20/21 07:22: Troponin I 0.02, NT-Pro-B Natriuret Pep 2110 H, TSH 2.30,
--- NOTE | 2021-07-20 14:34 | P.CONPHA_ITS ---
[facility] Pharmacy VTE Monitoring - Patient Demographics Admission date: 07/20/21 Report Date: 07/20/21 Time: 14:34 Allergies/Adverse Reactions: Patient Allergies No Known Allergies Allergy (Verified 02/11/21 17:04) Height: 1.8 m Weight: 127.006 kg Patient Problems: Current Active Problems UTI (urinary tract infection) (Acute) SIRS (systemic inflammatory response syndrome) (Acute) KARINA (acute kidney injury) (Acute) Obesity (BMI 30-39.9) (Acute) Cellulitis of both lower extremities (Acute) Altered mental status (Acute) Elevated sed rate (Acute) Elevated C-reactive protein (Acute) Chronic combined systolic (congestive) and diastolic (congestive) heart failure (Chronic) Mass of pancreas (Chronic) Hyperlipemia (Chronic) HTN (hypertension) (Chronic) CHF (congestive heart failure) (Chronic) - VTE Risk Labs: VTE Related Lab Results Hgb 11.4 g/dL (14.1-18.0) L 07/20/21 07:22 Hct 35.7 % (42.0-52.0) L 07/20/21 07:22 Plt Count 174 K/mm3 (142-424) 07/20/21 07:22 BUN 28 mg/dl (9-20) H 07/20/21 07:22 Creatinine 1.60 mg/dl (0.66-1.25) H 07/20/21 07:22 Estimated Creat Clear 72 mL/min (50-200) 07/20/21 07:22 - Prophylaxis VTE Prophylaxis Ordered?: Yes Types of VTE Prophylaxis: TEDS Knee High Location of Applied Device: Bilateral Lower Extremeties
--- NOTE | 2021-07-20 15:25 | HMH.PHAINT ---
MEDICATION RECONCILIATION COMPLETED ON PATIENT USING MAR FROM [facility]. -BHAVANI CORTES, CHIDID
[2021-07-20 15:27] LABS: Magnesium 1.8 mg/dl (1.6-2.3)
[2021-07-20 15:39] LABS: Troponin I 0.02 ng/ml (0.00-0.034)
[2021-07-21] VITALS (7 sets, daily range): BP systolic 127–192; BP diastolic 63–88; PULSE 37–80; RESP 17–19; TEMP 37.1–37.7; O2SAT 89–95; BMI 42.0
[2021-07-21 06:10] LABS: Basophils # 0.1 K/mm3 (0-0.2); Basophils % 0.4 % (0.1-2.0); Eosinophils # 0.2 K/mm3 (0.0-0.4); Eosinophils % 1.4 % (0.1-12.0); Hematocrit 37.1 % (42.0-52.0); Hemoglobin 11.9 g/dL (14.1-18.0); Lymphocytes # 0.7 K/mm3 (0.7-4.5); Mean Corpuscular HGB Conc 32.1 g/dL (31.8-35.4); Mean Corpuscular Hemoglobin 30.5 pg (27.0-31.2); Mean Corpuscular Volume 94.9 fl (80-94); Mean Platelet Volume 9.4 fl (7.4-10.4); Monocytes # 0.8 K/mm3 (0.1-1.0); Monocytes % 6.2 % (1.7-9.3); Neutrophils # 10.4 K/mm3 (1.8-7.8); Platelet Count 142 K/mm3 (142-424); Red Blood Count 3.91 M/mm3 (4.60-6.20); Red Cell Distribution Width 15.4 % (11.5-17.5); White Blood Count 12.1 K/mm3 (4.8-10.8)
[2021-07-21 06:11] LABS: MANUAL DIFFERENTIAL MANUAL DIFFERENTIAL (MANUAL DIFF)
--- NOTE | 2021-07-21 06:18 | PC.NURSE ---
Pt able to say name, bday, and he knows he is at a hospital but is otherwise disoriented. Pt has tolerated 3 L nc well with sats >90%. Alva catheter in place draining cloudy leila urine with sediment and mucous present. No complaints have been voiced to staff. Call light within reach.
[2021-07-21 06:25] LABS: Chloride 101 mmol/L (98-107); Sodium 135 mmol/L (136-145)
[2021-07-21 06:28] LABS: Blood Urea Nitrogen 24 mg/dl (9-20); Creatinine Clearance Estimated 51 mL/min (50-200); Estimated Glomerular Filt Rate 54 ml/min (>60); GFR (African American) 65 ML/MIN (>60)
[2021-07-21 06:29] LABS: Calcium 6.7 mg/dl (8.4-10.2); Carbon Dioxide 29 mmol/L (22.0-30.0); Glucose 120 mg/dl (74-100); Magnesium 1.9 mg/dl (1.6-2.3)
--- NOTE | 2021-07-21 08:50 | SW/DCPLANNER ---
Addendum entered by Barbi Sorensen 07/21/21 15:48: I have notified Azucena hartman/ [facility] that this patient will return today. Original Note: This patient currently resides at [facility] level of care. Azucena with [facility] has stated that patient will need a COVID swab prior to returning.
[2021-07-21 09:15] LABS: Eosinophils % 2 % (0-3); Lymphocytes % 8 % (10-50); Monocytes % 7 % (2-9); Neutrophils % 83 % (42-76); Total Cells Counted 100
[2021-07-21 09:16] LABS: Platelet Estimate Normal; RBC Morphology Normal
--- NOTE | 2021-07-21 09:21 | XR_ITS ---
FINAL REPORT CLINICAL HISTORY: low o2 COMPARISON: 07/20/2021 FINDINGS: SINGLE-VIEW CHEST There is cardiomegaly. The mediastinum is normal. There is linear density at the lung bases, may represent atelectasis. Findings are new since previous. There is no pneumothorax. IMPRESSION: Atelectasis at the lung bases. Reviewed, Interpreted and Dictated by Les Nelson MD Transcribed by Beth Last Authenticated by Les Nelson MD on 07/21/2021 11:06:08 AM [facility]
--- NOTE | 2021-07-21 09:21 | HMH.DCSUM ---
General - General Admission date:: 07/20/21 Discharge date: 07/21/21 HPI HPI: 71-year-old male patient presented to the [facility] emergency department per squad for reports of fever, low oxygen saturation, cough, generalized weakness, and change in mental status Hospital Course Hospital Course: Abnormal Lab Results 07/20/21 07:22: NT-Pro-B Natriuret Pep 2110 H, Thyroxine (T4) 5.2 L 07/21/21 05:49: WBC 12.1 H D, RBC 3.91 L, Hgb 11.9 L, Hct 37.1 L, MCV 94.9 H, Neut % (Auto) 86.0 H, Lymph % (Auto) 6.0 L, Neut # (Auto) 10.4 H, Neutrophils % (Manual) 83 H, Lymphocytes % (Manual) 8 L 07/21/21 05:49: Sodium 135 L, Potassium 3.0 L, BUN 24 H, Creatinine 1.30 H, Estimated GFR 54 L, Glucose 120 H, Calcium 6.7 L Microbiology 07/20/21 08:20 Urine,Clean Catch Urine Culture - Preliminary NO GROWTH AFTER 24 HOURS echo:Conclusion 1. Technically very difficult and poor studies. Mild biatrial enlargement, normal left ventricular size, mild concentric left ventricular hypertrophy, visually estimated ejection fraction 55% with no regional wall motion abnormality, grade 1 diastolic dysfunction seen without tissue Doppler evidence of intra-atrial pressure. 2. Mildly enlarged right ventricle with normal contractility. 3. Trace aortic, mitral and tricuspid regurgitation. 4. No significant pericardial significant 5. Inferior vena cava is poorly visualized. - cardiology consult: Assessment and plan all Dx Assessment and Plan for all problems:: 1. Altered mental status in the setting of UTI with SIRS. Defer treatment to PCP 2. History of congestive heart failure with elevated BNP this admission. Likely needs higher dose diuretics with close monitoring of renal status due to KARINA this admission. Patient is not on an PAT/ARB/Entresto and with acute kidney injury this admission will hold until renal functions have stabilized. 3. History of CVA with dysarthria and dysphagia 4. Enlarging pancreatic mass by Abdominal CT, 03/2021. 5. DNR 6. KARINA 7. Chronic mild anemia 8. Hypokalemia, replacement will be ordered 9. Markedly elevated CRP with sed rate of 140. Assessment and Plan for All Diagnoses:: 1. Altered mental status in the setting of UTI with SIRS. Defer treatment to PCP 2. History of congestive heart failure with elevated BNP this admission. Continue Lasix 40 mg twice daily, if discharged back to ECF then switch to oral. Close monitoring of renal status recommended. 3. History of CVA with dysarthria and dysphagia 4. Enlarging pancreatic mass by Abdominal CT, 03/2021. Defer to primary team. 5. DNR 6. KARINA, improving 7. Chronic mild anemia 8. Hypokalemia, slowly improving 9. Markedly elevated CRP with sed rate of 140. Medication recommendations upon discharge: Aspirin 81 mg daily Atorvastatin 10 mg daily Norvasc 5 mg daily Coreg 25 mg twice daily Lasix 40 mg twice daily Potassium 20 mEq 3 times daily Cardura 1 mg nightly Recommend BMP in 1 week Discharge Plan (1) UTI (urinary tract infection)- micro not resulted yet, will dc back on IM Rocephin 1gram daily for 7 days until culture I&D resulted (2) KARINA (acute kidney injury)Continue Lasix 40 mg twice daily, if discharged back to ECF then switch to oral. Close monitoring of renal status recommended.improving (3) SIRS (systemic inflammatory response syndrome) r/t uti (4) CHF (congestive heart failure)- ejection fraction 55% with no regional wall motion abnormality, (5) HTN (hypertension)-stable (6) Hyperlipemia-Atorvastatin 10 mg dailyNorvasc 5 mg dailyCoreg 25 mg twice daily Lasix 40 mg twice dailyPotassium 20 mEq 3 times dailyCardura 1 mg nightly (7) Mass of pancreas- Enlarging pancreatic mass by Abdominal CT, 03/2021.follow[address] by dr santoyo (8) Altered mental status- r/t uti (9) Elevated sed rate-Markedly elevated CRP with sed rate of 140. r/t uti (10) Elevated
[2021-07-21 09:27] LABS: Coronavirus 19, PCR Not Detected (NotDetected); Influenza A, PCR Not Detected (NotDetected); Influenza B, PCR Not Detected (NotDetected)
--- NOTE | 2021-07-21 10:00 | HMH.PNCARD ---
Subjective Date: 07/21/21 Time: 10:00 Principal diagnosis: UTI, AMS Interval history: 76-year-old white male in bed in no acute distress. More alert and interactive today, he knows he is a [facility]. Denies any chest pain, pressure or tightness. Edema of the extremities has slightly improved with IV Lasix. Exam Vital signs and Labs for Last 24 Hours: Temp Pulse Resp BP Pulse Ox 98.9 F 39 L 17 147/77 H 92 L 07/21/21 08:00 07/21/21 08:00 07/21/21 08:00 07/21/21 08:00 07/21/21 08:00 Laboratory Results - last 24 hr 07/20/21 07:22: Troponin I 0.02, NT-Pro-B Natriuret Pep 2110 H, TSH 2.30, Thyroxine (T4) 5.2 L 07/20/21 11:00: Troponin I 0.02 07/20/21 11:00: Magnesium 1.8 07/20/21 14:50: Troponin I 0.02 07/21/21 05:49: WBC 12.1 H D, RBC 3.91 L, Hgb 11.9 L, Hct 37.1 L, MCV 94.9 H, MCH 30.5, MCHC 32.1, RDW 15.4, Plt Count 142, MPV 9.4, Neut % (Auto) 86.0 H, Lymph % (Auto) 6.0 L, Harney % (Auto) 6.2, Eos % (Auto) 1.4, Baso % (Auto) 0.4, Neut # (Auto) 10.4 H, Lymph # (Auto) 0.7, Harney # (Auto) 0.8, Eos # (Auto) 0.2, Baso # (Auto) 0.1, Total Counted 100, Neutrophils % (Manual) 83 H, Lymphocytes % (Manual) 8 L, Monocytes % (Manual) 7, Eosinophils % (Manual) 2, Platelet Estimate Normal, RBC Morphology Normal 07/21/21 05:49: Sodium 135 L, Potassium 3.0 L, Chloride 101, Carbon Dioxide 29, Anion Gap 8.0, BUN 24 H, Creatinine 1.30 H, Estimated Creat Clear 51, Estimated GFR 54 L, Est GFR ( Amer) 65 D, Glucose 120 H, Calcium 6.7 L, Magnesium 1.9 07/21/21 08:56: SARS-CoV-2 (PCR) Not detected, Influenza A Untype (PCR) Not detected, Influenza Type B (PCR) Not detected I & O for Last 24 hours: Intake & Output 07/18/21 07/19/21 07/20/21 07/21/21 11:59 11:59 11:59 11:59 Intake Total 1233 / 1233 Output Total 900 / 900 Balance 333 / 333 Weight 280 lb 300 lb 3.2 oz Microbiology Reports for the Last 24 Hours: Microbiology 07/20/21 08:20 Urine,Clean Catch Urine Culture - Preliminary NO GROWTH AFTER 24 HOURS - *Routine Respiratory Exam Present: CTA bilaterally - *Routine Cardiovascular Exam Present: RRR - *Routine Extremities Exam Present: edema. Absent: cyanosis, clubbing Progress Note: A&P (1) KARINA (acute kidney injury) Status: Acute (2) Altered mental status Status: Acute (3) Cellulitis of both lower extremities Status: Acute (4) Elevated C-reactive protein Status: Acute (5) Elevated sed rate Status: Acute (6) Obesity (BMI 30-39.9) Status: Acute (7) SIRS (systemic inflammatory response syndrome) Status: Acute (8) UTI (urinary tract infection) Status: Acute (9) Chronic combined systolic (congestive) and diastolic (congestive) heart failure Status: Chronic (10) Hypokalemia Status: Acute Assessment and Plan for All Diagnoses:: 1. Altered mental status in the setting of UTI with SIRS. Defer treatment to PCP 2. History of congestive heart failure with elevated BNP this admission. Continue Lasix 40 mg twice daily, if discharged back to ECF then switch to oral. Close monitoring of renal status recommended. 3. History of CVA with dysarthria and dysphagia 4. Enlarging pancreatic mass by Abdominal CT, 03/2021. Defer to primary team. 5. DNR 6. KARINA, improving 7. Chronic mild anemia 8. Hypokalemia, slowly improving 9. Markedly elevated CRP with sed rate of 140. Medication recommendations upon discharge: Aspirin 81 mg daily Atorvastatin 10 mg daily Norvasc 5 mg daily Coreg 25 mg twice daily Lasix 40 mg twice daily Potassium 20 mEq 3 times daily Cardura 1 mg nightly Recommend BMP in 1 week
--- NOTE | 2021-07-22 14:08 | CARE MANAGER ---
Contacted patient's nurse at [facility] related to discharge from hospital. She states that he is swollen all over, but is taking the Lasix as it was prescribed. He received Rocephin. They started an IV but it infiltrated so they received order for medication to be IM. She states otherwise he is doing ok. TAMICA Prado
== END 2021-07-21 16:55 | DRG 683 ==
LOC: ER 11:35 → 2ND 14:29
PROVIDERS: Physician Assistant; Admitting Provider Emergency Medicine; Emergency Provider Emergency Medicine; PCP Emergency Medicine; Visit Provider Emergency Medicine
DX: N17.9 Acute kidney failure, unspecified (principal); N39.0 Urinary tract infection, site not specified; L03.116 Cellulitis of left lower limb; L03.115 Cellulitis of right lower limb; Z68.41 Body mass index [BMI] 40.0-44.9, adult; I50.42 Chronic combined systolic (congestive) and diastolic (congestive) heart failure; E66.9 Obesity, unspecified; E87.6 Hypokalemia; I69.391 Dysphagia following cerebral infarction; I69.322 Dysarthria following cerebral infarction; R13.10 Dysphagia, unspecified; Z66 Do not resuscitate; D63.8 Anemia in other chronic diseases classified elsewhere; I11.0 Hypertensive heart disease with heart failure; Z85.9 Personal history of malignant neoplasm, unspecified; F20.9 Schizophrenia, unspecified; F32.9 Major depressive disorder, single episode, unspecified
CPT/HCPCS: 36415; 71045; 80048; 80053; 81001; 83605; 83735; 83880; 84145; 84436; 84443; 84484; 85007; 85025; 85651; 86140; 87040; 87086; 87088; 87186; 93005; 93306; 94640; 94760; 94761; 96365; 96367; 96375; 96376; 99285; C9803; J0696; J2405; U0003; U0005

== ENCOUNTER → 2021-08-04 09:41 | Outpatient (CLI) | payer MEDICARE, MEDICAID, SELFPAY ==
--- NOTE | 2021-08-04 09:57 | XR_ITS ---
FINAL REPORT CLINICAL HISTORY: knee pain FINDINGS: 3 views of the left knee were obtained. There is no acute fracture or dislocation. There is mild narrowing of the medial compartment joint space. There is a osteophyte along the superior patella. There is no soft tissue abnormality. IMPRESSION: Mild osteoarthritis. Reviewed, Interpreted and Dictated by Les Nelson MD Transcribed by George Tabor Authenticated by Les Nelson MD on 08/04/2021 01:32:16 PM [facility]
== END ==
PROVIDERS: PCP Emergency Medicine; Visit Provider Orthopaedic Surgery
DX: M25.562 Pain in left knee (principal)
CPT/HCPCS: 73562

== ENCOUNTER → 2021-09-02 09:55 | Outpatient (CLI) | payer MEDICARE, MEDICAID, SELFPAY ==
--- NOTE | 2021-09-02 10:08 | XR_ITS ---
FINAL REPORT CLINICAL HISTORY: knee pain COMPARISON: 08/04/2021 FINDINGS: AP, lateral and oblique views of the left knee were obtained. There is no prior exam for comparison. There is no acute osseous abnormality of the left knee. The joint space is preserved. The soft tissues are normal. There is no joint effusion. IMPRESSION: No acute osseous abnormality of the left knee. Reviewed, Interpreted and Dictated by Demetria Stokes MD Transcribed by Beth Last Authenticated by Demetria Stokes MD on 09/02/2021 01:21:15 PM [facility]
== END ==
PROVIDERS: PCP Emergency Medicine; Visit Provider Orthopaedic Surgery
DX: M25.562 Pain in left knee (principal)
CPT/HCPCS: 73562

== ENCOUNTER → 2022-06-29 11:29 | Outpatient (CLI) | payer MEDICARE, MEDICAID, SELFPAY | PROVIDERS: PCP Emergency Medicine; Visit Provider Emergency Medicine | DX: R05.9 Cough, unspecified (principal); R09.89 Other specified symptoms and signs involving the circulatory and respiratory systems; J98.4 Other disorders of lung | CPT/HCPCS: 87275; 87276 ==

== ENCOUNTER → 2022-12-28 11:52 | Outpatient (CLI) | payer MEDICARE, MEDICAID, SELFPAY ==
[2022-12-28 12:30] LABS: Basophils % 0.2 % (0.1-2.0); Eosinophils # 0.1 K/mm3 (0.0-0.4); Eosinophils % 0.6 % (0.1-12.0); Hematocrit 38.9 % (42.0-52.0); Hemoglobin 12.1 g/dL (14.1-18.0); Lymphocytes # 0.6 K/mm3 (0.7-4.5); Lymphocytes % 4.1 % (10-50); Mean Corpuscular Hemoglobin 29.3 pg (27.0-31.2); Mean Corpuscular Volume 94.6 fl (80-94); Mean Platelet Volume 8.4 fl (7.4-10.4); Monocytes # 0.5 K/mm3 (0.1-1.0); Monocytes % 3.2 % (1.7-9.3); Neutrophils # 14.3 K/mm3 (1.8-7.8); Neutrophils % 91.8 % (37.0-80.0); Platelet Count 378 K/mm3 (142-424); Red Blood Count 4.12 M/mm3 (4.60-6.20); White Blood Count 15.6 K/mm3 (4.8-10.8)
[2022-12-28 12:34] LABS: MANUAL DIFFERENTIAL MANUAL DIFFERENTIAL (MANUAL DIFF)
[2022-12-28 12:47] LABS: Chloride 102 mmol/L (98-107); Potassium 3.4 mmoL/L (3.5-5.1); Sodium 142 mmol/L (136-145)
[2022-12-28 12:48] LABS: Lymphocytes % 5 % (10-50); Monocytes % 2 % (2-9); Neutrophils % 89 % (42-76); Platelet Estimate Normal; RBC Morphology Normal; Total Cells Counted 100
[2022-12-28 12:50] LABS: Anion Gap 12.4 mEq/L (5-15); Blood Urea Nitrogen 18 mg/dl (9-20); Calcium 7.7 mg/dl (8.4-10.2); Carbon Dioxide 31 mmol/L (22.0-30.0); Estimated Glomerular Filt Rate 73 ml/min (>60); GFR (African American) 88 ML/MIN (>60); Glucose 164 mg/dl (74-100)
[2022-12-30 10:48] LABS: Hemoglobin A1C 7.3 % (4.0-6.0)
== END ==
PROVIDERS: PCP Emergency Medicine; Visit Provider Emergency Medicine
DX: E87.6 Hypokalemia (principal); R73.09 Other abnormal glucose; K30 Functional dyspepsia; R50.9 Fever, unspecified
CPT/HCPCS: 80048; 83036; 85007; 85025

== ENCOUNTER 2023-02-14 17:22 | Inpatient (IN) | payer MEDICARE, MEDICAID, SELFPAY ==
[2023-02-14] VITALS (23 sets, daily range): BP systolic 137–211; BP diastolic 76–102; PULSE 61–122; RESP 22–34; TEMP 36.7; O2SAT 86–97; BMI 40.8
--- NOTE | 2023-02-14 17:12 | ECG_ITS ---
APPROVED REPORT Exam: Resting ECG HR:116 bpm ECG Measurements Heart Rate 116 AXES QRSd 147 QRS 129 QT 374 T -6 QTc 443 Conclusion ATRIAL FIBRILLATION WITH RAPID VENTRICULAR RESPONSE RIGHT BUNDLE BRANCH BLOCK [120+ ms QRS DURATION, UPRIGHT V1, 40+ ms S IN I/aVL/V4/V5/V6] LEFT POSTERIOR FASCICULAR BLOCK [QRS AXIS > 109, INFERIOR Q] ST DEPRESSION, CONSIDER SUBENDOCARDIAL INJURY [0.1+ mV ST DEPRESSION] ABNORMAL ECG UNCONFIRMED REPORT Electronically signed by : Gabriele England MD 02/15/2023 21:13:13
--- NOTE | 2023-02-14 17:29 | XR_ITS ---
PROCEDURE INFORMATION: Exam: XR Chest Exam date and time: 02/14/2023 6:06 PM Age: 77 years old Clinical indication: Other: AMS TECHNIQUE: Imaging protocol: Radiologic exam of the chest. Views: 1 view. COMPARISON: CR XR CHEST PORTABLE 07/21/2021 9:42 AM FINDINGS: Lungs: There is moderate diffuse pulmonary vascular prominence with patchy infiltrates in the bilateral mid to lower lungs. Lung apices are clear. Lung volumes are relatively low. Pleural spaces: Unremarkable. No pleural effusion. No pneumothorax. Heart/Mediastinum: Cardiac silhouette is mildly enlarged and stable. Bones/joints: Mild degenerative changes noted in the spine and shoulders. IMPRESSION: Interval worsening of congestive changes with mid to lower lung infiltrates concerning for developing pulmonary edema or possibly pneumonia.
--- NOTE | 2023-02-14 17:29 | CT_ITS ---
PROCEDURE INFORMATION: Exam: CT Head Without Contrast Exam date and time: 02/14/2023 6:56 PM Age: 77 years old Clinical indication: Altered mental status/memory loss; Additional info: AMS TECHNIQUE: Imaging protocol: Computed tomography of the head without contrast. Radiation optimization: All CT scans at this facility use at least one of these dose optimization techniques: automated exposure control; mA and/or kV adjustment per patient size (includes targeted exams where dose is matched to clinical indication); or iterative reconstruction. REPORTING DATA: Count of CT and Cardiac NM exams in prior 12 months: This patient has received 0 known CTs and 0 known cardiac nuclear medicine studies in the 12 months prior to the current study. COMPARISON: HEADWO CT head/brain wo con 01/17/2018 10:27 PM FINDINGS: Brain: Significant generalized cerebral atrophy. Diffuse periventricular white matter hypoattenuation compatible with chronic microvascular ischemic changes. No intracranial mass, hemorrhage or definite evidence of acute infarcts. Cerebral ventricles: No ventriculomegaly. Paranasal sinuses: There is complete opacification of the sphenoid sinus and partial opacification of the ethmoid air cells. Paranasal sinuses are otherwise clear. Mastoid air cells: Visualized mastoid air cells are well aerated. Bones/joints: Unremarkable. No acute fracture. Soft tissues: Unremarkable. IMPRESSION: No acute intracranial abnormality. Chronic appearing findings, including findings of chronic sphenoid and ethmoid sinusitis.
--- NOTE | 2023-02-14 17:36 | PC.NURSE ---
respiratory aware of VBG blood in the lab
--- NOTE | 2023-02-14 17:44 | HMH.EDGENADL ---
Discharge Plan Disposition Patient Disposition: Admitted Condition: Fair Clinical Impressions Clinical Impression: Acute exacerbation of CHF (congestive heart failure), Hypokalemia, Hypertensive emergency, Atrial fibrillation with RVR, Acute hypoxemic respiratory failure Discharge ED Provider: Adrienne Velazquez General Adult HPI General Chief complaint: Shortness of Breath/Dyspnea Stated complaint: weakness Time Seen by Provider: 02/14/23 17:22 Mode of Arrival: EMS Source of Information: Patient and EMS Limitations: No Limitations Description of Symptoms (Recalled from ER Triage Doc. 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 Facility reports patient does not wear O2 there. Denies chest pain. PMH: A-fib, HTN, CHF, Dementia. Patient is A&Ox2 History of Present Illness HPI narrative: This patient is a 77-year-old male with a history of dementia, paranoid schizophrenia, hypertension, hyperlipidemia, CHF, morbid obesity, and general debility with gradual worsening over the last several months presenting to the emergency department for evaluation with concern for respiratory distress. History is obtained with the help of nursing at [facility], who I spoke with directly. She reports that he has had a gradual decline over the last several months and has now progressed to the point where he is unable to feed himself. He is essentially bedbound and they help him with all ADLs. He has significant cognitive decline and has slurred speech at baseline and is difficult to understand. They note that he had been doing fine today until he had dinner, at which point he seems to have respiratory distress and they were concerned that he had diminished breath sounds on the right side. They also listened to him and noted that they thought he was in atrial fibrillation. The nurse their notes that she believes that he does have atrial fibrillation and is on Coreg for this, but he does not have documentation of this in his chart. She notes that he had previously been on oxygen, but he was weaned off of it and had not required it recently. EMS reports that the patient was hypoxic on room air and was placed on 2 L nasal cannula. Patient is confused and is only oriented to person, which facility reports is his baseline, but he denies any concerns or complaints at this time. He is not able to contribute further history given his baseline dementia. They note that he received his Lasix and antihypertensives prior to transport. Related Data Home Medications Medication Instructions Recorded Confirmed acetaminophen 500 mg tablet 500 mg PO BID Joint pain 04/21/19 09/20/22 amlodipine 5 mg tablet 5 mg PO DAILY Hypertension 04/21/19 09/20/22 aspirin 81 mg chewable tablet 81 mg PO DAILY heart health 04/21/19 09/20/22 atorvastatin 10 mg tablet 10 mg PO QODHS Cholesterol 04/21/19 09/20/22 carvedilol 25 mg tablet 25 mg PO BID Hypertension 04/21/19 09/20/22 donepezil 5 mg tablet 5 mg PO HS Memory 04/21/19 09/20/22 doxazosin 1 mg tablet 1 mg PO HS Hypertension 04/21/19 09/20/22 oxcarbazepine 300 mg tablet 300 mg PO BID Mood 04/21/19 09/20/22 pantoprazole 40 mg tablet,delayed 40 mg PO DAILY Heartburn 04/21/19 09/20/22 release risperidone 2 mg tablet 2 mg PO BID Mood 04/21/19 09/20/22 docusate sodium 250 mg capsule 250 mg PO BID Bowel care 03/22/21 09/20/22 polyethylene glycol 3350 17 gram 17 gm PO DAILY CONSTIPATION 03/22/21 09/20/22 oral powder packet ondansetron 4 mg disintegrating 4 mg PO TIDP PRN Nausea And 07/20/21 09/20/22 tablet Vomiting Previous Rx's Medication Instructions Recorded albuterol sulfate 2.5 mg/3 mL 2.5 mg (3 mL) inhalation Q6HP PRN 07/21/21 (0.083 %) solution for nebulization Wheezing 10 days #40 mL furosemide 40 mg tablet 40 mg PO TID 07/21/21 Allergies Allergy/AdvReac Type Severity Reaction Status Date / Time No Known Allergies Allergy Verified 09/20/22 21:35 PFSH PFSH D
[2023-02-14 17:48] LABS: Basophils % 0.2 % (0.1-2.0); Eosinophils # 0.4 K/mm3 (0.0-0.4); Eosinophils % 3.6 % (0.1-12.0); Hematocrit 40.8 % (42.0-52.0); Hemoglobin 13.5 g/dL (14.1-18.0); Lymphocytes # 0.8 K/mm3 (0.7-4.5); Lymphocytes % 6.6 % (10-50); Mean Corpuscular HGB Conc 33.2 g/dL (31.8-35.4); Mean Corpuscular Hemoglobin 30.5 pg (27.0-31.2); Mean Corpuscular Volume 91.7 fl (80-94); Mean Platelet Volume 8.3 fl (7.4-10.4); Monocytes # 0.5 K/mm3 (0.1-1.0); Monocytes % 4.2 % (1.7-9.3); Neutrophils # 9.6 K/mm3 (1.8-7.8); Neutrophils % 85.4 % (37.0-80.0); Platelet Count 193 K/mm3 (142-424); Red Blood Count 4.44 M/mm3 (4.60-6.20); Red Cell Distribution Width 16.3 % (11.5-17.5); White Blood Count 11.3 K/mm3 (4.8-10.8)
[2023-02-14 17:50] LABS: MANUAL DIFFERENTIAL MANUAL DIFFERENTIAL (MANUAL DIFF)
--- NOTE | 2023-02-14 17:50 | PC.NURSE ---
Fall bracelet placed on patient and red star placed on door to room. Kate obtained first set of blood cultures.
--- NOTE | 2023-02-14 17:50 | PC.NURSE ---
pt to ct
[2023-02-14 17:55] LABS: VBG HCO3 26.3 mmol/L (23-30); VBG Oxygen Saturation 94.2 % (50-70); VBG PCO2 40.6 mmol/L (35-51); VBG PH 7.43 mmol/L (7.31-7.41); VBG PO2 70.8 mmol/L (28-40); VBG Total CO2 27.6 mmol/L (23-27)
--- NOTE | 2023-02-14 18:00 | PC.NURSE ---
Attempted to call to obtain second set of blood cultures since patient is a hard stick. Lab stated it would be awhile; will obtain from same IV.
[2023-02-14 18:01] LABS: Alanine Aminotransferase 27 U/L (12-78); Albumin Level 4.1 g/dl (3.5-5.0); Alkaline Phosphatase 79 U/L (38-126); Anion Gap 14.1 mEq/L (5-15); Aspartate Amino Transferase 38 U/L (17-59); Bilirubin,Total 0.4 mg/dl (0.2-1.3); Blood Urea Nitrogen 14 mg/dl (9-20); Calcium 8.7 mg/dl (8.4-10.2); Carbon Dioxide 33 mmol/L (22.0-30.0); Chloride 95 mmol/L (98-107); Creatinine Clearance Estimated 91 mL/min (50-200); Estimated Glomerular Filt Rate 54 ml/min (>60); GFR (African American) 65 ML/MIN (>60); Globulin 4.1 g/dL (1.3-3.2); Glucose 181 mg/dl (74-100); Lipase 78 U/L (23-300); Magnesium 2.1 mg/dl (1.6-2.3); Potassium 3.1 mmoL/L (3.5-5.1); Sodium 139 mmol/L (136-145); Total Protein,Serum 8.2 g/dl (6.3-8.2)
[2023-02-14 18:06] LABS: D-Dimer 1.08 ug/mL (0.0-0.5)
--- NOTE | 2023-02-14 18:09 | CT_ITS ---
PROCEDURE INFORMATION: Exam: CTA Chest With Contrast Exam date and time: 02/14/2023 7:45 PM Age: 77 years old Clinical indication: Abnormal findings; Abnormal diagnostic tests; Elevated d-dimer; Other: Acute respiratory failure; Additional info: Acute resp failure, elevated dimer TECHNIQUE: Imaging protocol: Computed tomographic angiography of the chest with contrast. Exam focused on the arteries. 3D rendering (Not supervised by radiologist): MIP and/or 3D reconstructed images were created by the technologist. Radiation optimization: All CT scans at this facility use at least one of these dose optimization techniques: automated exposure control; mA and/or kV adjustment per patient size (includes targeted exams where dose is matched to clinical indication); or iterative reconstruction. Contrast material: ISOVUE 370; Contrast volume: 75 ml; Contrast route: INTRAVENOUS (IV); REPORTING DATA: Count of CT and Cardiac NM exams in prior 12 months: This patient has received 0 known CTs and 0 known cardiac nuclear medicine studies in the 12 months prior to the current study. COMPARISON: CR XR CHEST PORTABLE 02/14/2023 6:06 PM FINDINGS: Pulmonary arteries: Normal. No pulmonary emboli. Aorta: Moderate atherosclerotic calcification of the aorta. No evidence of aneurysm or dissection. Lungs: Patchy ground-glass infiltrates diffusely distributed throughout both lungs. Lung volumes are relatively low. Mild dependent atelectasis in both lungs. Pleural spaces: Unremarkable. No pneumothorax. No pleural effusion. Heart: Unremarkable. No cardiomegaly. No pericardial effusion. Lymph nodes: Mildly prominent superior mediastinal lymph nodes. No other evidence of lymphadenopathy. Pancreas: 7.8 cm slightly heterogeneous mass which appears to arise from the pancreatic tail measures larger than on the prior study of 04/21/2019 where it was described as measuring 6.5 cm in diameter. Kidneys and ureters: Partially visualized right hydronephrosis and nephrolithiasis. Bones/joints: Mild degenerative disc changes and anterior syndesmophyte formation throughout the thoracic spine. No vertebral body compression or acute fracture. Soft tissues: Unremarkable. IMPRESSION: 1. No evidence of pulmonary embolus 2. Patchy diffuse ground-glass infiltrates in both lungs which may reflect acute pneumonitis and/or hypoaeration changes. 3. 7.8 cm pancreatic tail mass which has mildly increased in size compared to the study of 04/21/2019. 4. Partially visualized moderate right hydronephrosis and nephrolithiasis.
[2023-02-14 18:12] LABS: Eosinophils % 4 % (0-3); Lymphocytes % 5 % (10-50); Monocytes % 5 % (2-9); NT Pro Brain Natriuretic Pep. 3640 pg/mL (0-450); Neutrophils % 83 % (42-76); Total Cells Counted 100
[2023-02-14 18:13] LABS: Anisocytosis 2+; Hypochromasia 1+; Platelet Estimate Normal
[2023-02-14 18:19] LABS: T4 (Thyroxine) 7.2 ug/dl (5.53-11.0)
[2023-02-14 18:28] LABS: Troponin I < 0.01 ng/ml (0.00-0.034)
[2023-02-14 18:30] LABS: Microscopic, Urine URINE MICROSCOPIC (MICROSCOPIC)
[2023-02-14 18:33] LABS: Thyroid Stimulating Hormone 3.19 uIU/mL (0.465-4.68)
[2023-02-14 18:34] LABS: Appearance,Urine CLEAR (Clear); Bilirubin,Urine Negative (Negative); Blood, Urine 1+ (Negative); Color,Urine YELLOW (Yellow); Glucose,Urine (UA) Negative (Negative); Ketones,Urine Negative (Negative); Leukocyte Esterase,Urine TRACE (Negative); Nitrate,Urine Negative (Negative); PH,Urine 7.5 (5.0-8.5); Protein,Urine Negative (Negative); Specific Gravity, Urine 1.015 (1.005-1.030); Urobilinogen,Urine 0.2 EU/dl (0.2)
--- NOTE | 2023-02-14 18:34 | PC.NURSE ---
@ BS with patient; call light within reach of patient
[2023-02-14 19:14] LABS: Bacteria,Urine Trace /lpf
--- NOTE | 2023-02-14 19:19 | ECG_ITS ---
APPROVED REPORT Exam: Resting ECG HR:91 bpm ECG Measurements Heart Rate 91 AXES QRSd 153 QRS 121 QT 405 T 41 QTc 454 Conclusion ATRIAL FIBRILLATION RIGHT AXIS DEVIATION [QRS AXIS > 100] RIGHT BUNDLE BRANCH BLOCK [120+ ms QRS DURATION, UPRIGHT V1, 40+ ms S IN I/aVL/V4/V5/V6] ST DEPRESSION, CONSIDER SUBENDOCARDIAL INJURY [0.1+ mV ST DEPRESSION] ABNORMAL ECG UNCONFIRMED REPORT Electronically signed by : Gabriele England MD 02/15/2023 21:12:46
--- NOTE | 2023-02-14 19:32 | PC.NURSE ---
Titrated patient's Diliazem drip to 10mg/hour. Call light within reach of patient
--- NOTE | 2023-02-14 19:39 | PC.NURSE ---
ED doctor on phone with hospitalist re admission
--- NOTE | 2023-02-14 19:49 | PC.NURSE ---
house called for admission
--- OUTSIDE RECORDS SUMMARY | 2023-02-14 20:01 | XMS_ITS | Continuity of Care Document ---
Author Name Unknown Organization [address] [place] [address] Address [address] [facility] [address] [place] [address] Phone Care Team Providers Care Government Teacher Name Role Phone Kareen Obrien OD Unavailable Unavailab le Allergies, Adverse Reactions, Alerts Substance Reaction Status Criticality No Known Allergies Active No Inform ation Medications Medication Instructions Dosage Effective Dates (start - stop) Status Comments atorvastatin 10 mg tablet - Active donepezil 5 mg tablet - Acti ve furosemide 40 mg tablet - Ac tive ibuprofen 400 mg tablet - Ac tive oxcarbazepine 300 mg tablet - Active carvedilol 25 mg tablet - Ac tive pantoprazole 40 mg tablet,delayed release - Active risperidone 2 mg tablet - Ac tive cephalexin 500 mg capsule - Active sulfamethoxazole 800 mg-trimethoprim 160 mg tablet - Active sulfamethoxazole 400 mg-trimethoprim 80 mg tablet - Active SSD 1 % topical cream - Acti ve ceftriaxone 1 gram/50 mL in dextrose (iso-osmot) intravenous piggyback - Active ceftriaxone 1 gram solution for injection
--- NOTE | 2023-02-14 20:16 | EXP.HP ---
History of Present Illness *Admission Date: 02/14/23 *Reason for visit:: SOB *History of present illness: This is a 77-year-old male fdc resident with multiples comorbidities including but not limited to dementia, paranoid schizophrenia, hypertension, hyperlipidemia, CHF, morbid obesity, and limited mobility that was brought to ER by EMS for evaluation of respiratory distress. Data is limited patient is poor historian. Most history is obtained from ER documentation, EMS report and staff at [facility]. Facility reported patient been continuously physically and cognitive declining over the last several months and has now became essentially bedbound, and required extensive help for his daily ADLs. EMS reports that the patient was hypoxic on room air and was placed on 2 L NC. Patient is confused and is only oriented to person, which facility reports is his baseline, but he denied any concerns or complaints at this time. He is not able to contribute further history given his baseline dementia. Admitted for further work up. [facility] Disclaimer: The information contained in this section may have been updated after the patient was seen, as this information can be updated by other users. Medical History (Updated 02/15/23 @ 00:09 by Carlos Reynolds APRN) Chronic combined systolic (congestive) and diastolic (congestive) heart failure Chronic paranoid schizophrenia Dementia GERD (gastroesophageal reflux disease) History of falling HTN (hypertension) Hx of suicide attempt Hyperlipemia Lumbar spondylolysis Major depression Mass Mass of pancreas Neurocognitive disorder Obesity Obesity (BMI 30-39.9) Obesity, morbid (more than 100 lbs over ideal weight or BMI > 40) Osteopenia Social History Smoking Status: Unknown if ever smoked alcohol intake: never substance use type: denies use current occupational status: disabled Travel in the last 8 weeks: None housing: fdc Review of Systems Review of Systems Review of systems:: unable to obtain Meds Home Medications and Allergies Home Medications Medication Instructions Recorded Confirmed Type acetaminophen 500 mg tablet 500 mg PO BID Joint pain 04/21/19 02/15/23 History amlodipine 5 mg tablet 5 mg PO DAILY High Blood Pressure 04/21/19 02/15/23 History aspirin 81 mg chewable tablet 81 mg PO DAILY heart health 04/21/19 02/15/23 History atorvastatin 10 mg tablet 10 mg PO QODHS Cholesterol 04/21/19 02/15/23 History carvedilol 25 mg tablet 25 mg PO BID High Blood Pressure 04/21/19 02/15/23 History donepezil 5 mg tablet 5 mg PO HS Memory 04/21/19 02/15/23 History doxazosin 1 mg tablet 1 mg PO HS High Blood Pressure 04/21/19 02/15/23 History oxcarbazepine 300 mg tablet 300 mg PO BID Mood 04/21/19 02/15/23 History pantoprazole 40 mg tablet,delayed 40 mg PO DAILY Acid Reflux 04/21/19 02/15/23 History release risperidone 2 mg tablet 2 mg PO BID Mood 04/21/19 02/15/23 History docusate sodium 250 mg capsule 250 mg PO Q48H Constipation 03/22/21 02/15/23 History polyethylene glycol 3350 17 gram 17 gm PO DAILYP PRN Constipation 03/22/21 02/15/23 History oral powder packet ondansetron 4 mg disintegrating 4 mg PO Q8HP PRN Nausea And 07/20/21 02/15/23 History tablet Vomiting furosemide 40 mg tablet 40 mg PO BID Fluid 02/14/23 02/15/23 History ibuprofen 400 mg tablet 400 mg PO Q8HP PRN Mild Pain 02/14/23 02/15/23 History (Scale Score 1-4) sennosides 8.6 mg tablet 8.6 mg PO DAILYP PRN Constipation 02/14/23 02/15/23 History New Prescriptions to Start Prescriptions: Allergies Allergy/AdvReac Type Severity Reaction Status Date / Time No Known Allergies Allergy Verified 09/20/22 21:35 Exam Data for Last 24 hours Vital signs and Labs for Last 24 Hours: Temp Pulse Resp BP Pulse Ox O2 Del Method O2 Flow Rate 98.1 F 99 H 27 H 180/79 H 96 Nasal Cannula 2 02/14/23 17:20 02/14/23 20:06
--- NOTE | 2023-02-14 20:41 | PC.NURSE ---
received report from TAMICA Washburn in ER
--- NOTE | 2023-02-14 20:52 | PC.NURSE ---
[facility] notified of patient admission
--- NOTE | 2023-02-14 20:57 | PC.NURSE ---
Rounded on patient; cleaned patient and placed patient in a new brief. Readjusted sheets under patient and readjusted patient in the bed. Call light within reach of patient
--- NOTE | 2023-02-14 21:17 | PC.NURSE ---
Patient arrived to floor via stretcher at 21:13.
[2023-02-14 22:14] LABS: Troponin I 0.01 ng/ml (0.00-0.034)
--- NOTE | 2023-02-14 22:43 | PC.NURSE ---
Addendum entered by Lucy Lobato RN 02/14/23 22:48: full code status verified with hospitalist almas Original Note: contacted grand rizzo at [phone] r/t pt expression of wishes, unable to get a contacted for next of kin. Contacted Selina Sarabia (next of kin - unknown) at [phone] and got a voicemail that said leave a message for андрей hawikns . contacted [employer]orer [employer] to verify direction - pt code status is Full Code at this time
--- NOTE | 2023-02-14 23:08 | PC.NURSE ---
[address]4 Grand [facility] Ewing RN called and spoke with TAMICA Galvez -- Selina Sarabia is the pt conservator for monetary purposes only. pt has no legal POA. pt is unable to verify his DNR status r/t mental status. Kaylin states they have attempted 2 times to deem pt a deal of the state but failed r/t pt not meeting criteria. [address] [facility] D[facility] Clifton called Lucy DAVEY to get update on pt admit dx and reported that tomorrow morning grand rizzo is going to start emergency guardianship.
[2023-02-15] VITALS (11 sets, daily range): BP systolic 97–194; BP diastolic 51–87; PULSE 58–90; RESP 14–26; TEMP 36.8–37.3; O2SAT 91–98; BMI 37.6
--- NOTE | 2023-02-15 00:24 | PC.NURSE ---
Spoke with PAULO Gonzalez. Previously gave patient first dose lovenox upon arrival to unit. Another order placed for second dose of Lovenox to be given now. New orders to hold 135mg dose of lovenox now until AM medications are due. Spoke with Mary at [facility] pharmacy and requested med retimed for 0900.
[2023-02-15 00:30] LABS: Troponin I < 0.01 ng/ml (0.00-0.034)
[2023-02-15 02:16] LABS: Adenovirus,PCR Not Detected (NotDetected); Coronavirus 229E Not Detected (NotDetected); Coronavirus NL63 Not Detected (NotDetected); Coronavirus OC43 Not Detected (NotDetected); Coronovirus HKU1,PCR Not Detected (NotDetected); Human Metapneumovirus Not Detected (NotDetected); Rhinovirus/Enterovirus Not Detected (NotDetected)
[2023-02-15 02:17] LABS: Coronavirus 19, PCR Not Detected (NotDetected); Influenza A, PCR Not Detected (NotDetected); Influenza AH1, 2009 Not Detected (NotDetected); Influenza AH1, PCR Not Detected (NotDetected); Influenza AH3,PCR Not Detected (NotDetected); Influenza B, PCR Not Detected (NotDetected); Parainfluenza 1, PCR Not Detected (NotDetected); Parainfluenza 2, PCR Not Detected (NotDetected); Parainfluenza 3, PCR Not Detected (NotDetected); Parainfluenza 4, PCR Not Detected (NotDetected); Respiratory Syncytial Virus Not Detected (NotDetected)
--- NOTE | 2023-02-15 05:16 | PC.NURSE ---
Patient is alert and oriented to self. This is patient baseline. Patient easily arousable to voice, and slight shaking. He can express needs but might take multiple redirections attempts. Patient passed nursing bedside swallow. Enjoys milk, and take PO medication without issue. Incontinent of bowel and bladder. Significant edema BLE, and right arm. Aggressively diuresed last night. Skin dicoloration on BLE which is baseline, but no other skin breakdown present. Patient is resident at [facility].
[2023-02-15 06:13] LABS: Basophils % 0.2 % (0.1-2.0); Eosinophils # 0.4 K/mm3 (0.0-0.4); Eosinophils % 3.8 % (0.1-12.0); Hematocrit 35.3 % (42.0-52.0); Lymphocytes % 10.2 % (10-50); Mean Corpuscular Hemoglobin 30.4 pg (27.0-31.2); Mean Corpuscular Volume 92.2 fl (80-94); Mean Platelet Volume 7.9 fl (7.4-10.4); Monocytes # 0.5 K/mm3 (0.1-1.0); Monocytes % 4.7 % (1.7-9.3); Neutrophils # 7.7 K/mm3 (1.8-7.8); Neutrophils % 81.1 % (37.0-80.0); Platelet Count 183 K/mm3 (142-424); Red Blood Count 3.83 M/mm3 (4.60-6.20); Red Cell Distribution Width 16.4 % (11.5-17.5); White Blood Count 9.5 K/mm3 (4.8-10.8)
[2023-02-15 06:25] LABS: Hemoglobin 11.7 g/dL (14.1-18.0)
[2023-02-15 06:34] LABS: Alanine Aminotransferase 18 U/L (12-78); Albumin Level 3.4 g/dl (3.5-5.0); Alkaline Phosphatase 63 U/L (38-126); Anion Gap 11.3 mEq/L (5-15); Aspartate Amino Transferase 27 U/L (17-59); Bilirubin,Total 0.4 mg/dl (0.2-1.3); Blood Urea Nitrogen 18 mg/dl (9-20); Calcium 8.1 mg/dl (8.4-10.2); Carbon Dioxide 35 mmol/L (22.0-30.0); Chloride 96 mmol/L (98-107); Creatinine Clearance Estimated 78 mL/min (50-200); Estimated Glomerular Filt Rate 49 ml/min (>60); GFR (African American) 60 ML/MIN (>60); Globulin 3.5 g/dL (1.3-3.2); Glucose 130 mg/dl (74-100); Potassium 3.3 mmoL/L (3.5-5.1); Sodium 139 mmol/L (136-145); Total Protein,Serum 6.9 g/dl (6.3-8.2)
--- NOTE | 2023-02-15 07:37 | P.CONPHA_ITS ---
Pharmacy Intervention Comments: MEDICATION RECONCILIATION COMPLETED ON PATIENT USING MAR FROM [facility]. -BHAVANI CORTES, CHIDID
--- NOTE | 2023-02-15 07:37 | HMH.PHAINT1 ---
Pharmacy Intervention Comments: MEDICATION RECONCILIATION COMPLETED ON PATIENT USING MAR FROM [facility]-TERM. -BHAVANI CORTES, CHIDID
--- NOTE | 2023-02-15 08:01 | PC.NURSE ---
Potassium orders clarified with MD this AM. Give Potassium runs for 0836 and 1036.
--- NOTE | 2023-02-15 09:17 | SW/DCPLANNER ---
Addendum entered by Barbi Sorensen 02/16/23 10:33: I have updated Azucena hartman/ [facility] that patient will return today [facility] level of care. Addendum entered by Barbi Sorensen 02/15/23 09:23: Azucena did return phone call and I have updated her on plan. Original Note: Patient currently resides at [facility] level of care. Azucena hartman/ [facility] contacted me this AM regarding starting the process of Emergency Guardianship for this patient while at [facility]. Azucena also stated that [facility] has attempted this process in the past and unsuccessful due to [facility] stating that patient does not meet criteria for a Guardian. I explained to Azucena that this is not a process we start unless MD finds necessary and that it is not emergent while any patient is at [facility] due to being in a safe place. Myself, Dr Bhatia and nurse (Elizabeth) rounded on patient together this AM. At this time Dr Bhatia does not find the Guardianship process necessary for this patient while inpatient at [facility]. I attempted to contact Azucena hartman/ update: no answer at this time. Per Dr Bhatia pending no setbacks the plan is to discharge this patient back to [facility] tomorrow.
--- NOTE | 2023-02-15 14:55 | EXP.ACUTE.PN ---
Subjective *Date: 02/15/23 *Time: 15:38 Interval history: Patient appears comfortable on morning exam. 2 L nasal cannula oxygen. Appears at baseline mentation per review from nursing facility. No nausea or vomiting. Tolerating p.o. meds. Having good response with diuresis, incontinence of poor measurement. Medical Exam Vital signs and Labs for Last 24 Hours: Vital Signs Temp Pulse Pulse Resp BP BP Pulse Ox 02/15/23 13:00 02/15/23 11:58 98.7 F 02/15/23 10:48 02/15/23 10:00 58 L 16 135/65 96 02/15/23 09:00 02/15/23 08:00 60 02/15/23 08:00 71 16 149/87 H 98 02/15/23 08:00 02/15/23 07:43 98.8 F 02/15/23 04:00 98.5 F 02/15/23 05:28 64 14 137/71 91 L 02/15/23 05:00 02/15/23 04:00 60 02/15/23 04:00 71 20 166/85 H 95 02/15/23 04:00 94 L 02/15/23 03:00 02/15/23 01:16 71 18 146/69 H 95 02/15/23 00:57 02/15/23 00:00 60 02/14/23 22:50 80 02/15/23 00:00 99.1 F 73 26 H 194/83 H 97 02/14/23 23:00 02/14/23 22:21 97 02/15/23 06:49 02/14/23 21:02 98.1 F 89 26 H 185/92 H 02/14/23 20:56 185/92 H 95 02/14/23 20:31 89 26 H 172/78 H 95 02/14/23 20:26 61 26 H 189/89 H 96 02/14/23 20:21 79 28 H 181/90 H 94 L 02/14/23 20:16 78 27 H 172/80 H 94 L 02/14/23 20:11 66 22 173/87 H 94 L 02/14/23 20:06 99 H 27 H 180/79 H 96 02/14/23 20:01 103 H 27 H 170/84 H 94 L 02/14/23 19:56 72 30 H 182/86 H 94 L 02/14/23 19:51 80 28 H 170/79 H 94 L 02/14/23 19:46 80 28 H 175/80 H 97 02/14/23 19:42 80 30 H 137/76 94 L 02/14/23 19:25 77 23 174/96 H 94 L 02/14/23 19:09 102 H 31 H 167/82 H 95 02/14/23 19:01 97 H 30 H 168/80 H 94 L 02/14/23 18:53 100 H 31 H 177/86 H 94 L 02/14/23 18:33 100 H 34 H 189/76 H 94 L 02/14/23 18:03 93 H 30 H 203/102 H 94 L 02/14/23 17:36 122 H 32 H 208/95 H 93 L 02/14/23 17:20 98.1 F 88 34 H 211/100 H 86 L O2 Del Method O2 Flow Rate 02/15/23 13:00 Nasal Cannula 2 02/15/23 11:58 02/15/23 10:48 Nasal Cannula 2 02/15/23 10:00 Nasal Cannula 2 02/15/23 09:00 Room Air 2 02/15/23 08:00 02/15/23 08:00 Nasal Cannula 2 02/15/23 08:00 Nasal Cannula 2 02/15/23 07:43 02/15/23 04:00 02/15/23 05:28 Nasal Cannula 2 02/15/23 05:00 Nasal Cannula 2 02/15/23 04:00 02/15/23 04:00 Nasal Cannula 2 02/15/23 04:00 Nasal Cannula 2 02/15/23 03:00 Nasal Cannula 2 02/15/23 01:16 Room Air, Nasal Cannula 2 02/15/23 00:57 Nasal Cannula 2 02/15/23 00:00 02/14/23 22:50 02/15/23 00:00 Nasal Cannula 2 02/14/23 23:00 Nasal Cannula 2 02/14/23 22:21 Nasal Cannula 2 02/15/23 06:49 Nasal Cannula 2 02/14/23 21:02 Nasal Cannula 2 02/14/23 20:56 Nasal Cannula 2 02/14/23 20:31 Nasal Cannula 2 02/14/23 20:26 Nasal Cannula 2 02/14/23 20:21 Nasal Cannula 2 02/14/23 20:16 Nasal Cannula 2 02/14/23 20:11 Nasal Cannula 2 02/14/23 20:06 Nasal Cannula 2 02/14/23 20:01 Nasal Cannula 2 02/14/23 19:56 Nasal Cannula 2 02/14/23 19:51 Nasal Cannula 2 02/14/23 19:46 Nasal Cannula 2 02/14/23 19:42 Nasal Cannula 2 02/14/23 19:25 Nasal Cannula 2 02/14/23 19:09 02/14/23 19:01 02/14/23 18:53 02/14/23 18:33 Nasal Cannula 2 02/14/23 18:03 Nasal Cannula 2 02/14/23 17:36 Nasal Cannula 2 02/14/23 17:20 Room Air Intake and Output 02/14/23 02/15/23 02/15/23 23:59 07:59 15:59 Intake Total 59.084 / 628.537 4311.083 / 1585.083 540 / 1585.083 Output Total 0 / 0 0 / 0 Balance 59.084 / 924.289 9288.083 / 1585.083 540 / 1585.083 Intake: Intake, Oral Amount 480 / 1020 540 / 1020 Intake, Total IV Amount 59.084 / 321.084 565.083 / 565.083 Azithromycin 500 mg In 0.9 % 250 / 250 Sodium Chloride 250 ml @ 250 mls/hr IV Q24H
--- NOTE | 2023-02-15 16:50 | PC.NURSE ---
Pt A&O to self. He remains on baseline O2 needs at 2L NC. Pt was given a diet today and tolerated well. Pt did not have any difficulty chewing or swallowing. He does need assistance with meals. Pt has edema to BLE and bilateral hands. Discoloration also noted to extremities. Pt is incontinent of bowel and bladder. Medication administered per jun. 2 Runs of K+ administered. Call light within reach.
[2023-02-15 18:47] LABS: Chloride 99 mmol/L (98-107); Sodium 139 mmol/L (136-145)
[2023-02-15 18:50] LABS: Blood Urea Nitrogen 20 mg/dl (9-20); Carbon Dioxide 30 mmol/L (22.0-30.0); Creatinine Clearance Estimated 77 mL/min (50-200); Estimated Glomerular Filt Rate 49 ml/min (>60); GFR (African American) 60 ML/MIN (>60); Glucose 153 mg/dl (74-100)
[2023-02-16] VITALS: BP 185/76; PULSE 109; PULSE 80; RESP 18; TEMP 36.8; O2SAT 94
[2023-02-16 04:00] VITALS: BP 165/97; PULSE 70; PULSE 85; RESP 18; TEMP 36.9; O2SAT 96; BMI 38.5
--- NOTE | 2023-02-16 06:04 | PC.NURSE ---
Pt is oriented to self. Pt has rested well this shift and tolerated Q2 turns well. Pt is currently on 2L of O2 and is sating at 94%. Pt denies pain and other needs at this time.
[2023-02-16 06:05] LABS: Basophils % 0.2 % (0.1-2.0); Eosinophils # 0.4 K/mm3 (0.0-0.4); Eosinophils % 5.3 % (0.1-12.0); Hematocrit 34.8 % (42.0-52.0); Hemoglobin 11.3 g/dL (14.1-18.0); Lymphocytes # 0.7 K/mm3 (0.7-4.5); Lymphocytes % 9.3 % (10-50); Mean Corpuscular HGB Conc 32.6 g/dL (31.8-35.4); Mean Corpuscular Hemoglobin 30.1 pg (27.0-31.2); Mean Corpuscular Volume 92.2 fl (80-94); Mean Platelet Volume 8.2 fl (7.4-10.4); Monocytes # 0.4 K/mm3 (0.1-1.0); Monocytes % 5.6 % (1.7-9.3); Neutrophils # 6.2 K/mm3 (1.8-7.8); Neutrophils % 79.6 % (37.0-80.0); Platelet Count 150 K/mm3 (142-424); Red Blood Count 3.77 M/mm3 (4.60-6.20); Red Cell Distribution Width 16.5 % (11.5-17.5); White Blood Count 7.8 K/mm3 (4.8-10.8)
[2023-02-16 06:15] LABS: Alanine Aminotransferase 16 U/L (12-78); Albumin Level 3.5 g/dl (3.5-5.0); Alkaline Phosphatase 70 U/L (38-126); Anion Gap 12.3 mEq/L (5-15); Aspartate Amino Transferase 24 U/L (17-59); Bilirubin,Total 0.5 mg/dl (0.2-1.3); Blood Urea Nitrogen 16 mg/dl (9-20); Calcium 8.1 mg/dl (8.4-10.2); Carbon Dioxide 30 mmol/L (22.0-30.0); Chloride 98 mmol/L (98-107); Creatinine Clearance Estimated 85 mL/min (50-200); Estimated Glomerular Filt Rate 54 ml/min (>60); GFR (African American) 65 ML/MIN (>60); Globulin 3.4 g/dL (1.3-3.2); Glucose 140 mg/dl (74-100); Magnesium 2.1 mg/dl (1.6-2.3); Potassium 3.3 mmoL/L (3.5-5.1); Sodium 137 mmol/L (136-145); Total Protein,Serum 6.9 g/dl (6.3-8.2)
[2023-02-16 07:30] LABS: NT Pro Brain Natriuretic Pep. 3410 pg/mL (0-450)
--- NOTE | 2023-02-16 07:38 | EXP.DC.SUM ---
General Admission date:: 02/14/23 Discharge date: 02/16/23 HPI HPI HPI: This is a 77-year-old male [facility] resident with multiples comorbidities including but not limited to dementia, paranoid schizophrenia, hypertension, hyperlipidemia, CHF, morbid obesity, and limited mobility that was brought to ER by EMS for evaluation of respiratory distress. Data is limited patient is poor historian. Most history is obtained from ER documentation, EMS report and staff at [facility]. Facility reported patient been continuously physically and cognitive declining over the last several months and has now became essentially bedbound, and required extensive help for his daily ADLs. EMS reports that the patient was hypoxic on room air and was placed on 2 L NC. Patient is confused and is only oriented to person, which facility reports is his baseline, but he denied any concerns or complaints at this time. He is not able to contribute further history given his baseline dementia. Admitted for further work up. Hospital Course Hospital Course Hospital Course: 77-year-old male [facility] resident with multiples comorbidities including but not limited to dementia, paranoid schizophrenia, hypertension, hyperlipidemia, CHF, morbid obesity, and limited mobility that was brought to ER by EMS for evaluation of respiratory distress. on arrival CTA and CXR was obtained that is negative for PE. Concerning for pulmonary edema. There is also concern for sinusitis. Lab work showed mild leukocytosis, elevated BNP, mild hypokalemia. Rate control has been achieved with adjustments to metoprolol. Diuresing well. Stable on 2 L nasal cannula which is his baseline. No longer requiring inpatient management. Will transition back to his nursing facility to continue care. Stable for discharge. Problems addressed during hospitalization as follows: - Acute on chronic exacerbation of CHF: - Hypokalemia -Patient initiated on Bumex and spironolactone upon arrival. Has had good urine output, given his incontinence however, for monitoring of exact fluid balance. BNP on arrival was 3640. Repeat on morning of discharge showing some improvement, down to 3400. Still has significant edema but given his stable oxygen requirement, can continue diuresis in the [facility] setting. We will continue Bumex 1 mg twice daily with addition of spironolactone. Creatinine stable at 1.3. Electrolytes acceptable with magnesium at 2.1. Potassium 3.3. No supplementation given addition of spironolactone. Was initiated on antibiotics empirically, will discontinue at time of discharge, no concern for pneumonia. - afib with RVR: -Hypertension: - unclear chronicity only on aspirin on admission, chart reviewed from [facility]. Previously only on aspirin for anticoagulation. Given his A-fib, will initiate on Eliquis. Continue twice daily. Discontinued carvedilol and initiated metoprolol succinate 100 mg daily. Rate control has done better. We will continue this regimen at discharge. Continue amlodipine for blood pressure - Pancreatic mass: Seems enlarged since previous CT. Concerning malignancy. Previously known with no interventions, does not appear to have clinical impact on his condition at this time. Defer further management to PCP. Stable for discharge back to nursing facility. Patient at baseline oxygen requirement of 2 L and baseline mentation. Tolerating p.o. intake and medications during admission. Exam Data for Last 24 hours Vital signs and Labs for Last 24 Hours: Temp Pulse Resp BP Pulse Ox O2 Del Method O2 Flow Rate 98.5 F 85 18 165/97 H 96 Nasal Cannula 2 02/16/23 04:00 02/16/23 04:00 02/16/23 04:00 02/16/23 04:00 02/16/23 04:00 02/16/23 06:49 02/16/23 06:49 Laboratory Results - last 24 hr 02/15/23 18:30: Sodium 139, Potassium 4.0 D, Chloride 99, Carbon Dioxide 30, Anion Gap 14.0, BUN 20, Creatinine 1.40 H, Estimated Creat Clear 77, Estimated GFR 49 L,
[2023-02-16 07:41] VITALS: BP 171/88; PULSE 82; RESP 21; TEMP 37.1; O2SAT 94
[2023-02-16 08:00] VITALS: PULSE 80
== END 2023-02-16 14:17 | DRG 291 ==
LOC: ER 19:48 → 2ND 20:00
PROVIDERS: Nurse Practitioner Family; Admitting Provider Internal Medicine Adolescent Medicine; Emergency Provider Emergency Medicine; Visit Provider Internal Medicine Adolescent Medicine
DX: I11.0 Hypertensive heart disease with heart failure (principal); I50.43 Acute on chronic combined systolic (congestive) and diastolic (congestive) heart failure; J96.01 Acute respiratory failure with hypoxia; I16.1 Hypertensive emergency; F20.0 Paranoid schizophrenia; E87.6 Hypokalemia; I48.91 Unspecified atrial fibrillation; F03.90 Unspecified dementia, unspecified severity, without behavioral disturbance, psychotic disturbance, mood disturbance, and anxiety; E66.01 Morbid (severe) obesity due to excess calories; Z68.38 Body mass index [BMI] 38.0-38.9, adult; K21.9 Gastro-esophageal reflux disease without esophagitis; E78.5 Hyperlipidemia, unspecified; F32.9 Major depressive disorder, single episode, unspecified; K86.89 Other specified diseases of pancreas
CPT/HCPCS: 36415; 70450; 71045; 71275; 80048; 80053; 81001; 82803; 83605; 83690; 83735; 83880; 84436; 84443; 84484; 85007; 85025; 85378; 87040; 87632; 87635; 93005; 99291; J0456; J0696

== ENCOUNTER 2023-11-06 02:13 | Outpatient (CLI) | payer MEDICARE, MEDICAID, SELFPAY ==
[2023-11-06 03:00] LABS: Microscopic, Urine URINE MICROSCOPIC (MICROSCOPIC)
[2023-11-06 03:03] LABS: Blood, Urine 3+ (Negative); Glucose,Urine (UA) Negative (Negative); Ketones,Urine Negative (Negative); Leukocyte Esterase,Urine 2+ (Negative); Nitrate,Urine POSITIVE (Negative); PH,Urine 6.5 (5.0-8.5); Protein,Urine 3+ (Negative); Specific Gravity, Urine 1.025 (1.005-1.030)
[2023-11-06 03:07] LABS: Bilirubin,Urine 2+ (Negative); Color,Urine Amber (Yellow)
[2023-11-06 03:08] LABS: Appearance,Urine Turbid (Clear)
[2023-11-06 03:16] LABS: Bacteria,Urine 1+ /lpf; RBC,Urine TNTC #/hpf (0-3); Squamous Epithelial Cell,Urine Occasional #/hpf (0-5); WBC,Urine TNTC #/hpf (0-3)
== END 2023-11-06 23:59 | disposition home or self-care (01) ==
LOC: LAB.DROPOF 02:16
PROVIDERS: Nurse Practitioner Family; PCP Internal Medicine Adolescent Medicine; Visit Provider Internal Medicine Adolescent Medicine
DX: R31.9 Hematuria, unspecified (principal); N39.0 Urinary tract infection, site not specified; B96.20 Unspecified Escherichia coli [E. coli] as the cause of diseases classified elsewhere
CPT/HCPCS: 81001; 87086; 87088; 87186

== ENCOUNTER 2023-11-07 11:36 | Emergency (ER) | payer MEDICARE, MEDICAID, SELFPAY ==
[2023-11-07] VITALS (17 sets, daily range): BP systolic 144–196; BP diastolic 71–166; PULSE 62–124; RESP 15–26; TEMP 36.7–36.9; O2SAT 90–98; BMI 35.6
--- NOTE | 2023-11-07 11:42 | HMH.EDGENADL ---
Discharge Plan Disposition Patient Disposition: Xfer Short-Term Hosp Condition: Good Chief Complaint: Abdominal Pain Prescriptions Prescriptions: No Action donepezil 5 MG tablet 5 mg PO HS atorvastatin 10 MG tablet 10 mg PO QODHS doxazosin 1 MG tablet 1 mg PO HS oxcarbazepine 300 MG tablet 300 mg PO BID amlodipine 5 MG tablet 5 mg PO DAILY acetaminophen 500 MG tablet 500 mg PO BID risperidone 2 MG tablet 2 mg PO BID pantoprazole 40 MG tablet,delayed release (DR/EC) 40 mg PO DAILY sennosides 8.6 mg Tablet 8.6 mg PO DAILYP PRN (Reason: Constipation) ibuprofen 400 mg tablet 400 mg PO Q8HP PRN (Reason: Mild Pain (Scale Score 1-4)) Eliquis 5 mg Tablet 5 mg PO BID 30 Days Qty: 60 0RF metoprolol succinate 100 mg Tablet Extended Release 24 Hr 100 mg PO DAILY 30 Days Qty: 30 0RF spironolactone 25 mg Tablet 25 mg PO DAILY 30 Days Qty: 30 0RF bumetanide 1 mg tablet 1 mg PO 0800,1400 30 Days Qty: 60 0RF polyethylene glycol 3350 17 GM powder in packet 17 gm PO DAILYP PRN (Reason: Constipation) docusate sodium 250 MG capsule 250 mg PO Q48H ondansetron 4 MG tablet,disintegrating 4 mg PO Q8HP PRN (Reason: Nausea And Vomiting) Referrals Follow up/Referrals: Gabriele England MD [Primary Care Provider] - See instructions Clinical Impressions Clinical Impression: Mass of pancreas, Hydronephrosis, Hydroureter, Calculus, ureteral, Acidosis, lactic Instructions Patient Instructions: DI for Acute Abdominal Pain Print Language Print Language: Burkinan Discharge ED Provider: Adrienne Velazquez General Adult HPI <Frank Robbins MD - Last Filed: 11/07/23 15:43> General Chief complaint: Abdominal Pain Stated complaint: Foul smelling burp, known UTI/on Cefdinir Time Seen by Provider: 11/07/23 11:37 History of Present Illness HPI narrative: 78-year-old male comes to the ER via EMS for concerns of a foul-smelling burp. [facility] and I spoke with his nurse Alexsandra who stated this morning when they laid him back he grabbed his belly as though it was painful and then produced a foul-smelling burps. She thought his heart rate and blood pressure were higher than normal as well though he had not yet taken his medications. On arrival in the ER patient has no complaints of pain and states he does not know why he is here, he is only oriented to self. 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 My review of records demonstrates that back in 2018 oncology referred the patient to for concerns of pancreatic mass. He has not had follow-up since that time and has never undergone aggressive treatment according to my review of previous records and according to reports from the [facility]. Patient does not have a POA or surrogate decision maker at the [facility] or in our system. He also has no family documented. Facility nurse reports he had positive urinalysis and was started on antibiotics yesterday. He has tolerated oral intake today with no vomiting. Most recent bowel movement was yesterday. Related Data Home Medications ?Medication ?Instructions ?Recorded ?Confirmed acetaminophen 500 mg tablet 500 mg PO BID Joint pain 04/21/19 02/15/23 amlodipine 5 mg tablet 5 mg PO DAILY High Blood Pressure 04/21/19 02/15/23 atorvastatin 10 mg tablet 10 mg PO QODHS Cholesterol 04/21/19 02/15/23 donepezil 5 mg tablet 5 mg PO HS Memory 04/21/19 02/15/23 doxazosin 1 mg tablet 1 mg PO HS High Blood Pressure 04/21/19 02/15/23 oxcarbazepine 300 mg tablet 300 mg PO BID Mood 04/21/19 02/15/23 pantoprazole 40 mg tablet,delayed 40 mg PO DAILY Acid Reflux 04/21/19 02/15/23 release risperidone 2 mg tablet 2 mg PO BID Mood 04/21/19 02/15/23 docusate sodium 250 mg capsule 250 mg PO Q48H Constipation 03/22/21 02/15/23 polyethylene glycol 3350 17 gram 17 gm PO DAILYP PRN Constipation 03/22/21 02/15/23 oral powder packet ondansetron 4 mg disintegrating 4 mg PO Q8HP PRN Nausea And 07/20/21 02/15/23 tablet Vomiting ibuprofen 400 mg tablet 400 mg PO Q8HP PRN Mild Pain 02/14/23 02/15/23 (Scale Score 1-4) sennosides 8.6 mg tablet 8.6 mg PO DAILYP PRN Constipation 02/14/23 02/15/23 Previous Rx's ?Medication ?Instructions ?Recorded apixaban 5 mg tablet (Eliquis) 5 mg PO BID 30 days #60 tabs 02/16/23 bumetanide 1 mg tablet 1 mg PO 0800,1400 30 days #60 tabs 02/16/23 metoprolol succinate 100 mg 100 mg PO DAILY 30 days #30 tabs 02/16/23 tablet,extended release 24 hr spironolactone 25 mg tablet 25 mg PO DAILY 30 days #30 tabs 02/16/23 Allergies Allergy/AdvReac Type Severity Reaction Status Date / Time No Known Allergies Allergy Verified 09/20/22 21:35 [facility] <Frank Robbins MD - Last Filed: 11/07/23 15:43> [facility] Disclaimer: The information contained in this section may have been updated after the patient was seen, as this information can be updated by other users. Medical History (Updated 11/07/23 @ 18:08 by Adrienne Velazquez DO) Dementia Obesity (BMI 30-39.9) Obesity, morbid (more than 100 lbs over ideal weight or BMI > 40) Chronic combined systolic (congestive) and diastolic (congestive) heart failure Osteopenia Lumbar spondylolysis Obesity Mass of pancreas Mass History of falling Neurocognitive disorder GERD (gastroesophageal reflux disease) Major depression Hyperlipemia HTN (hypertension) Chronic paranoid schizophrenia Hx of suicide attempt Social History Smoking Status: Never smoker alcohol intake: never substance use type: denies use current occupational status: disabled Travel in the last 8 weeks: None housing: [facility] <Frank Robbins MD - Last Filed: 11/07/23 15:43> ROS Obtained: Yes All systems reviewed & no additional complaints except as documented Physical Exam <Frank Robbins MD - Last Filed: 11/07/23 15:43> General General appearance: alert and in no apparent distress Comment: Chronically ill-appearing Head Head exam: atraumatic and normocephalic Eye Eye exam: Present PERRL and EOMI ENT ENT exam: Present mucous membranes moist and other (Multiple dental caries and findings of gingivitis but no findings of focal dental infection) Neck Neck exam: Present normal inspection and full ROM Chest Chest inspection: Present symmetric chest wall rise Respiratory Respiratory exam: Present normal lung sounds bilaterally; Absent respiratory distress, wheezes or stridor Cardiovascular Cardiovascular exam: Present regular rate and normal rhythm Abdominal Exam Abdominal exam: Present soft and tenderness (Patient sometimes says yes and sometimes as noted tenderness, he does not have any guarding or rebound, overall indeterminant abdominal exam); Absent distention, guarding, rebound or rigidity Extremities Exam Extremities exam: Present full ROM Neurological Exam Neurological exam: Present alert and oriented X3; Absent motor sensory deficit Psychiatric Psychiatric exam: Present normal affect and normal mood Skin Skin exam: Present warm and dry <Adrienne Velazquez DO - Last Filed: 11/07/23 18:13> Neurological Exam Neurological exam: Absent oriented X3 (oriented to person) Medical Decision Making <Frank Robbins MD - Last Filed: 11/07/23 15:43> Medical Records Medical records reviewed: Yes I reviewed the patient's medical records. MR Comment: See HPI Miles Inquiry Pt receiving controlled substance: No Vital Signs: 11/07/23 11:36 11/07/23 11:45 11/07/23 12:41 Temperature 98.0 F Temperature Source Oral Pulse Rate 93 H 100 H Pulse Rate [Right] 62 Respiratory Rate 17 Blood Pressure 196/95 H 191/95 H Blood Pressure [Left Arm] 167/88 H Blood Pressure Mean Blood Pressure Mean [Left Arm] 114 Blood Pressure Source Blood Pressure Source [Left Arm] Automatic Cuff 02 Sat by Pulse Oximetry 98 90 L 93 L Oxygen Delivery Method Room Air Room Air 11/07/23 13:30 11/07/23 14:01 11/07/23 15:04 Temperature Temperature Source Pulse Rate 70 82 103 H Pulse Rate [Right] Respiratory Rate Blood Pressure 167/92 H 180/98 H 193/166 H Blood Pressure [Left Arm] Blood Pressure Mean 134 Blood Pressure Mean [Left Arm] Blood Pressure Source Manual Cuff/ Auscultation Blood Pressure Source [Left Arm] 02 Sat by Pulse Oximetry 98 97 92 L Oxygen Delivery Method Room Air Room Air 11/07/23 15:31 11/07/23 16:02 Temperature Temperature Source Pulse Rate 112 H 112 H Pulse Rate [Right] Respiratory Rate Blood Pressure 184/120 H 192/120 H Blood Pressure [Left Arm] Blood Pressure Mean 141 126 Blood Pressure Mean [Left Arm] Blood Pressure Source Blood Pressure Source [Left Arm] 02 Sat by Pulse Oximetry 96 95 Oxygen Delivery Method Room Air Room Air Lab Data Lab Results 11/07/23 12:05: WBC 9.2, RBC 4.19 L, Hgb 12.0 L, Hct 38.8 L, MCV 92.5, MCH 28.7, MCHC 31.1 L, RDW 17.0, Plt Count 277, MPV 7.9, Neut % (Auto) 85.9 H, Lymph % (Auto) 6.1 L, [place] % (Auto) 4.2, Eos % (Auto) 3.6, Baso % (Auto) 0.3, Neut # (Auto) 7.9 H, Lymph # (Auto) 0.6 L, [place] # (Auto) 0.4, Eos # (Auto) 0.3, Baso # (Auto) 0.0, Total Counted 100, Neutrophils % (Manual) 88 H, Lymphocytes % (Manual) 9 L, Monocytes % (Manual) 2, Eosinophils % (Manual) 1, Platelet Estimate Normal, RBC Morphology Normal, Sodium 138, Potassium 3.5, Chloride 100, Carbon Dioxide 31 H, Anion Gap 10.5, BUN 24 H, Creatinine 1.50 H, Estimated Creat Clear 70, Estimated GFR 45 L, Est GFR ( Amer) 55 L, Glucose 140 H, Lactate 2.5 H, Calcium 8.8, Total Bilirubin 0.3, AST 58, ALT 55, Alkaline Phosphatase 94, Total Protein 7.4, Albumin 3.6, Globulin 3.8 H, Albumin/Globulin Ratio 0.9 L, Lipase 90 11/07/23 15:00: Urine Color Yellow, Urine Appearance Clear, Urine pH 6.5, Ur Specific [place] 1.010, Urine Protein Negative, Urine Glucose (UA) Negative, Urine Ketones Negative, Urine Blood 3+, Urine Nitrate Negative, Urine Bilirubin Negative, Urine Urobilinogen 0.2, Ur Leukocyte Esterase 1+ A, Urine RBC 50-100, Urine WBC 5-10, Ur Squamous Epith Cells Occasional, Urine Bacteria Trace 11/07/23 16:19: Lactate 3.2 H 11/07/23 12:05 11/07/23 12:05 Orders (Tests/Meds): ED MEDICATIONS Discontinued Medications Generic Name Dose Route Start Last Admin Trade Name Coni PRN Reason Stop Dose Admin Lactated Ringer's 1,000 mls @ 999 mls/hr 11/07/23 11:48 11/07/23 11:56 Lactated Ringer's 1000 Ml Bag IV 11/07/23 12:48 999 mls/hr .Q1H1M ONE Administration Lactated Ringer's 1,000 mls @ 999 mls/hr 11/07/23 16:37 11/07/23 16:59 Lactated Ringer's 1000 Ml Bag IV 11/07/23 17:37 999 mls/hr .Q1H1M ONE Administration Iopamidol 75 ml 11/07/23 12:39 11/07/23 12:40 Iopamidol-370 (76%);100ml Bottle IV 11/07/23 12:40 75 ml ONCE ONE Administration Sodium Chloride 10 ml 11/07/23 12:39 11/07/23 12:40 Sodium Chloride 0.9% 10ml Syr (Rad Only) IV 11/07/23 12:40 10 ml ONCE ONE Administration ORDERS Category Date Time Status CT abdomen pelvis w con Stat Cat Scan 11/07/23 11:48 Completed CBC w/Auto Diff [Complete Blood Count Auto Diff] Stat Lab 11/07/23 12:05 Completed CMP [Comprehensive Metabolic Panel] Stat Lab 11/07/23 12:05 Completed Lactic Acid Follow Up (RFLX 1) Stat Lab 11/07/23 16:19 Completed Lactic Acid Stat Lab 11/07/23 12:05 Completed Lipase Stat Lab 11/07/23 12:05 Completed Urinalysis and Microscopic Stat Lab 11/07/23 15:00 Completed Blood Culture Stat Micro 11/07/23 17:39 Ordered Urine Culture(cathed specimen) Stat Micro 11/07/23 15:00 Received Medical Decision Narrative: In summary, this 78-year-old male presents to the emergency department today with concerns of foul-smelling burps and possible abdominal pain from [facility]. On initial evaluation patient is hemodynamically stable, afebrile, overall reassuring physical exam however sometimes patient reports abdominal pain with palpation, other times he states he does not have pain. He does not have any rebound or guarding but given the concern for abdominal pain from his facility, this will be the primary concern evaluated today. Differential diagnosis includes but is not limited to enlarging of pancreatic mass which is pre-existing and a current comorbidity of his condition, considered bowel obstruction, electrolyte abnormality, lactic acidosis, pancreatitis. Based on these concerns, I ordered serum labs, CT imaging. Patient received IV fluids for treatment. Labs personally reviewed demonstrate no leukocytosis, mild anemia, nonactionable, sodium, potassium, chloride normal, patient has baseline kidney dysfunction and creatinine is not significantly different than previous, lactate is slightly elevated at 2.5, patient is receiving IV fluids, no transaminitis. UA was not initially ordered since patient has known urinary tract infection from the nursing facility and is already on cefdinir. Patient's heart rate is variable on the monitor secondary to tremor, by palpation it has been in the 60s and 70s. Manual blood pressures have also been significantly lower (systolics of 160s) than those taken on the monitor again secondary to tremor. CT abdomen pelvis personally interpreted demonstrate significant right-sided hydronephrosis and hydroureter with distal ureteral obstructing stone measuring up to 1 cm. See radiology read for final interpretation. Patient also has pancreatic mass that has been known since 2018 with no intervention. 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 Since patient has never wanted intervention in the last 6 years of this known pancreatic mass, I do not believe acute intervention or workup of this is necessary at this time. Primary concern is patient's newly identified obstructing right renal stone. [facility] has been contacted for transfer request. Awaiting callback from urology. Patient handed off to Dr. Velazquez at physician shift change pending callback from urology and transfer placement as well as urinalysis results following [facility] placement. <Adrienne Velazquez, DO - Last Filed: 11/07/23 18:13> Vital Signs: 11/07/23 11:36 11/07/23 11:45 11/07/23 12:41 Temperature 98.0 F Temperature Source Oral Pulse Rate 93 H 100 H Pulse Rate [Right] 62 Respiratory Rate 17 Blood Pressure 196/95 H 191/95 H Blood Pressure [Left Arm] 167/88 H Blood Pressure Mean Blood Pressure Mean [Left Arm] 114 Blood Pressure Source Blood Pressure Source [Left Arm] Automatic Cuff 02 Sat by Pulse Oximetry 98 90 L 93 L Oxygen Delivery Method Room Air Room Air 11/07/23 13:30 11/07/23 14:01 11/07/23 15:04 Temperature Temperature Source Pulse Rate 70 82 103 H Pulse Rate [Right] Respiratory Rate Blood Pressure 167/92 H 180/98 H 193/166 H Blood Pressure [Left Arm] Blood Pressure Mean 134 Blood Pressure Mean [Left Arm] Blood Pressure Source Manual Cuff/ Auscultation Blood Pressure Source [Left Arm] 02 Sat by Pulse Oximetry 98 97 92 L Oxygen Delivery Method Room Air Room Air 11/07/23 15:31 11/07/23 16:02 Temperature Temperature Source Pulse Rate 112 H 112 H Pulse Rate [Right] Respiratory Rate Blood Pressure 184/120 H 192/120 H Blood Pressure [Left Arm] Blood Pressure Mean 141 126 Blood Pressure Mean [Left Arm] Blood Pressure Source Blood Pressure Source [Left Arm] 02 Sat by Pulse Oximetry 96 95 Oxygen Delivery Method Room Air Room Air Lab Data Lab Results 11/07/23 12:05: WBC 9.2, RBC 4.19 L, Hgb 12.0 L, Hct 38.8 L, MCV 92.5, MCH 28.7, MCHC 31.1 L, RDW 17.0, Plt Count 277, MPV 7.9, Neut % (Auto) 85.9 H, Lymph % (Auto) 6.1 L, [place] % (Auto) 4.2, Eos % (Auto) 3.6, Baso % (Auto) 0.3, Neut # (Auto) 7.9 H, Lymph # (Auto) 0.6 L, [place] # (Auto) 0.4, Eos # (Auto) 0.3, Baso # (Auto) 0.0, Total Counted 100, Neutrophils % (Manual) 88 H, Lymphocytes % (Manual) 9 L, Monocytes % (Manual) 2, Eosinophils % (Manual) 1, Platelet Estimate Normal, RBC Morphology Normal, Sodium 138, Potassium 3.5, Chloride 100, Carbon Dioxide 31 H, Anion Gap 10.5, BUN 24 H, Creatinine 1.50 H, Estimated Creat Clear 70, Estimated GFR 45 L, Est GFR ( Amer) 55 L, Glucose 140 H, Lactate 2.5 H, Calcium 8.8, Total Bilirubin 0.3, AST 58, ALT 55, Alkaline Phosphatase 94, Total Protein 7.4, Albumin 3.6, Globulin 3.8 H, Albumin/Globulin Ratio 0.9 L, Lipase 90 11/07/23 15:00: Urine Color Yellow, Urine Appearance Clear, Urine pH 6.5, Ur Specific [place] 1.010, Urine Protein Negative, Urine Glucose (UA) Negative, Urine Ketones Negative, Urine Blood 3+, Urine Nitrate Negative, Urine Bilirubin Negative, Urine Urobilinogen 0.2, Ur Leukocyte Esterase 1+ A, Urine RBC 50-100, Urine WBC 5-10, Ur Squamous Epith Cells Occasional, Urine Bacteria Trace 11/07/23 16:19: Lactate 3.2 H Orders (Tests/Meds): ED MEDICATIONS Discontinued Medications Generic Name Dose Route Start Last Admin Trade Name Freq PRN Reason Stop Dose Admin Lactated Ringer's 1,000 mls @ 999 mls/hr 11/07/23 11:48 11/07/23 11:56 Lactated Ringer's 1000 Ml Bag IV 11/07/23 12:48 999 mls/hr .Q1H1M ONE Administration Lactated Ringer's 1,000 mls @ 999 mls/hr 11/07/23 16:37 11/07/23 16:59 Lactated Ringer's 1000 Ml Bag IV 11/07/23 17:37 999 mls/hr .Q1H1M ONE Administration Iopamidol 75 ml 11/07/23 12:39 11/07/23 12:40 Iopamidol-370 (76%);100ml Bottle IV 11/07/23 12:40 75 ml ONCE ONE Administration Sodium Chloride 10 ml 11/07/23 12:39 11/07/23 12:40 Sodium Chloride 0.9% 10ml Syr (Rad Only) IV 11/07/23 12:40 10 ml ONCE ONE Administration ORDERS Category Date Time Status CT abdomen pelvis w con Stat Cat Scan 11/07/23 11:48 Completed CBC w/Auto Diff [Complete Blood Count Auto Diff] Stat Lab 11/07/23 12:05 Completed CMP [Comprehensive Metabolic Panel] Stat Lab 11/07/23 12:05 Completed Lactic Acid Follow Up (RFLX 1) Stat Lab 11/07/23 16:19 Completed Lactic Acid Stat Lab 11/07/23 12:05 Completed Lipase Stat Lab 11/07/23 12:05 Completed Urinalysis and Microscopic Stat Lab 11/07/23 15:00 Completed Blood Culture Stat Micro 11/07/23 17:39 Ordered Urine Culture(cathed specimen) Stat Micro 11/07/23 15:00 Received Medical Decision Narrative: In summary, this 78-year-old male presents to the emergency department today with concerns of foul-smelling burps and possible abdominal pain from [facility]. On initial evaluation patient is hemodynamically stable, afebrile, overall reassuring physical exam however sometimes patient reports abdominal pain with palpation, other times he states he does not have pain. He does not have any rebound or guarding but given the concern for abdominal pain from his facility, this will be the primary concern evaluated today. Differential diagnosis includes but is not limited to enlarging of pancreatic mass which is pre-existing and a current comorbidity of his condition, considered bowel obstruction, electrolyte abnormality, lactic acidosis, pancreatitis. Based on these concerns, I ordered serum labs, CT imaging. Patient received IV fluids for treatment. Labs personally reviewed demonstrate no leukocytosis, mild anemia, nonactionable, sodium, potassium, chloride normal, patient has baseline kidney dysfunction and creatinine is not significantly different than previous, lactate is slightly elevated at 2.5, patient is receiving IV fluids, no transaminitis. UA was not initially ordered since patient has known urinary tract infection from the nursing facility and is already on cefdinir. Patient's heart rate is variable on the monitor secondary to tremor, by palpation it has been in the 60s and 70s. Manual blood pressures have also been significantly lower (systolics of 160s) than those taken on the monitor again secondary to tremor. CT abdomen pelvis personally interpreted demonstrate significant right-sided hydronephrosis and hydroureter with distal ureteral obstructing stone measuring up to 1 cm. See radiology read for final interpretation. Patient also has pancreatic mass that has been known since 2018 with no intervention. 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 Since patient has never wanted intervention in the last 6 years of this known pancreatic mass, I do not believe acute intervention or workup of this is necessary at this time. Primary concern is patient's newly identified obstructing right renal stone. [facility] has been contacted for transfer request. Awaiting callback from urology. Patient handed off to Dr. Velazquez at physician shift change pending callback from urology and transfer placement as well as urinalysis results following [facility] placement. Marcus, DO: Ultimately this patient is a 78-year-old male who is currently being treated for urinary tract infection with cefdinir presenting with tachycardia, lactic acidosis in the setting of obstructive stone. Concern for incompletely treated infection with obstructive stone. Given this, transfer process initiated. For transfer, I spoke with Dr. Hill @ [facility] who advised he is not in hospital tomorrow but would be happy to help take care of patient. On Dr. Sykes, hospitalist at [facility], is concerned about waiting until given he is currently tachycardic with lactic acidosis. He is concerned about potential decompensation before then, as it would be 36 hours likely before he received any procedure. I then initiated discussions with [facility], and Dr. Liu in the transfer center accepted the patient for transfer to [facility] ED for further evaluation and management. Prior to transfer, blood cultures were sent and patient was started on IV Rocephin. EMS transport was arranged, and the patient was transferred in stable condition. Of note, we weren't able to reach any NOK but there is a number in the chart, Selina Sarabia [phone]. Patient doesn't know who this is, we can't reach her. SNF says they have no NOK or contacts listed. They said he is his own decision maker and they have no contact info for anyone else. I did notify of this. Critical Care <Frank Robbins MD - Last Filed: 11/07/23 15:43> Critical Care Time Critical Care Time: No
--- NOTE | 2023-11-07 11:48 | CT_ITS ---
FINAL REPORT TECHNIQUE: After the administration of oral and intravenous contrast, axial images were obtained through the abdomen and pelvis by computed tomography. The study was performed with techniques to keep radiation dose as low as reasonably achievable, (ALARA). Individual dose reduction techniques using automated exposure control or adjustment of mA and/or kV according to the patient's size were employed. CLINICAL HISTORY: abd pain, known pancreatic mass COMPARISON: 04/21/2019 FINDINGS: Abdomen: There is abnormal parabronchial wall thickening and bibasilar ground glass opacities noted in the lung bases, increased over the prior exam of 2019. The liver parenchyma is homogeneous. The gallbladder is present. There is mild enlargement of the spleen. The adrenal glands are unremarkable. There is a pancreatic mass, 7.3 x 7.1 cm in size, which has increased since the prior CT of 2019, and now has a low-attenuation center worrisome for necrosis. There is a 1.4 cm nonobstructing stone in the right kidney. There is mild hydronephrosis on the right side, and the hydroureter extends to a 1 cm stone in the mid right ureter. The aorta is normal in caliber. There is no free fluid or adenopathy. Pelvis: The appendix is not identified. The urinary bladder is incompletely distended, with adjacent inflammatory stranding and wall thickening measuring up to 1 cm in thickness. This may represent cystitis. There is no free fluid or adenopathy. IMPRESSION: Enlargement of the previously seen pancreatic mass since the prior CT of 2019. On today's examination this mass measures 7.3 x 7.1 cm in size, and now has a low-attenuation central component, likely central necrosis. Abnormal parabronchial thickening and basilar ground glass opacities bilaterally, increased since the prior exam. The bladder is incompletely distended with adjacent inflammatory stranding, and wall thickening measuring up to 1 cm in size, worrisome for cystitis. There is a new 1 cm stone in the right ureter as described above with mild right hydronephrosis. Reviewed, Interpreted and Dictated by Les Nelson MD Transcribed by Claudia Patel Authenticated and [facility]
[2023-11-07] MEDS: LACTATED RINGERS 1000ML 1,000 ML 999 ML IV ×2 (11:56→16:59)
--- OUTSIDE RECORDS SUMMARY | 2023-11-07 12:17 | XMS_ITS | Continuity of Care Document ---
Author Organization [address] [place] [address] [address] [facility] [address] [place] [address] Phone Care Team Providers Care Magazine Designer Name Role Phone Concetta BATES, Claribel Unavailable Unavailabl e Allergies, Adverse Reactions, Alerts Substance Reaction Status Criticality No Known Allergies Active No Inform ation Medications Medication Instructions Dosage Effective Dates (start - stop) Status Comments acetaminophen 500 mg tablet - Active Eliquis 5 mg tablet - Active bumetanide 1 mg tablet - Act yaakov metoprolol succinate ER 100 mg tablet,extended release 24 hr - Active nystatin 100,000 unit/gram topical powder - Active docusate sodium 250 mg capsule - Active spironolactone 25 mg tablet - Active triamcinolone acetonide 0.1 % lotion - Active polyethylene glycol 3350 17 gram/dose oral powder - Active senna 8.6 mg tablet - Active aspirin 81 mg chewable tablet - Active prednisone 20 mg tablet - Ac tive azithromycin 250 mg tablet - Active Nystop 100,000 unit/gram topical powder - Active atorvastatin 10 mg tablet - Active donepezil [...] Active ceftriaxone 1 gram solution for injection - Active lidocaine HCl 10 mg/mL (1 %) injection solution - Active albuterol sulfate 2.5 mg/3 mL (0.083 %) solution for nebulization - Active mupirocin calcium 2 % topical cream - Active potassium chloride ER 10 mEq tablet,extended release(part/cryst) - Active doxazosin 1 mg tablet take 1 tablet by oral route every day 1 MG - Active amlodipine 5 mg tablet take 1 tablet by oral route every day 5 MG - Active amantadine HCl (bulk) powder - Active Procedures Procedure Date REMOVE IMPACTED EAR WAX Periodic Oral Evaluation Prophylaxis - Adult DEBRIDE NAIL 6 OR MORE SBSQ NF CARE LOW MDM 20 DEBRIDE NAIL 6 OR MORE SBSQ NF CARE SF MDM 10 REMOVE IMPACTED EAR WAX EYE EXAM & TREATMENT DEBRIDE NAIL 6 OR MORE DEBRIDE NAIL 6 OR MORE EYE EXAM & TREATMENT HEARING SERVICE, MISCELLANEOUS DEBRIDE NAIL 6 OR MORE NURSING FAC CARE SUBSEQ REMOVE IMPACTED EAR WAX Prophylaxis - Adult Charly-12-2023 Compsve Oral Eval- New/Est Pat DEBRIDE NAIL 6 OR MORE NURSING FAC CARE SUBSEQ REMOVE IMPACTED EAR WAX DEBRIDE NAIL 6 OR MORE FRAMES PURCHASES FITTING OF SPECTACLES EXCEPT FOR APHAKIA BIFOCAL SPHERE BIFOCAL PLANO TO PLUS OR MINUS 4. 00D PER LENS EYE EXAM & TREATMENT REMOVE IMPACTED EAR WAX DEBRIDE NAIL 6 OR MORE DEBRIDE NAIL 6 OR MORE NURSING FAC CARE SUBSEQ Compsve Oral Eval- New/Est Pat Prophylaxis - Adult TRIM SKIN LESION DEBRIDE NAIL 6 OR MORE REMOVE IMPACTED EAR WAX TRIM SKIN LESION DEBRIDE NAIL 6 OR MORE TRIM SKIN LESION DEBRIDE NAIL 6 OR MORE COMPREHENSIVE HEARING TEST Assessment for hearing aid REMOVE IMPACTED EAR WAX EYE EXAM & TREATMENT TRIM SKIN LESION DEBRIDE NAIL 6 OR MORE DEBRIDE NAIL 6 OR MORE TRIM SKIN LESIONS 2 TO 4 EYE EXAM & TREATMENT REMOVE IMPACTED EAR WAX DEBRIDEMENT OF NAIL(S) BY ANY METHOD(S); OR MORE Prophylaxis - Adult Complete Series Of Radiographic Images S Compsve Oral Eval- New/Est Pat 19 DEBRIDEMENT OF NAIL(S) BY ANY METHOD(S); OR MORE EYE EXAM & TREATMENT REMOVE IMPACTED EAR WAX DEBRIDEMENT OF NAIL(S) BY ANY METHOD(S); 6 OR MORE DEBRIDEMENT OF NAIL(S) BY ANY METHOD(S); OR MORE DEBRIDEMENT OF NAIL(S) BY ANY METHOD(S); OR MORE REMOVE IMPACTED EAR WAX EYE EXAM & TREATMENT DEBRIDEMENT OF NAIL(S) BY ANY METHOD(S); OR MORE Advance Directives Directive Yes / No Effective Date File Name No Information Encounters Encounter Description Practice Location Reason(s) For Visit Diagnoses Date Provider Providers Copied on Encounter [address] [place] [address], [address] [place] [address], [place], [place], [id number], tel:[phone] [place] ear care exam (chief complaint) Impacted cerumen, bilateral 4 [facility] [place] Referring Provider: Jeb Kumar. [address] [place] [address], [address] [place] [address], [place], [place], [id number], tel:[phone] [place] Encounter for dental examination and cleaning without abnormal findings 4 Sacha Menjivar. [address] [place] [address], [address], [place], [place], [id number], . tel:[phone] Referring Provider: Jeb Kumar. [facility] NF CARE LOW MDM [address] [place] [address], [address] [place] [address], [place], [place], [id number], tel:[phone] [place] Contusion of left lesser toe(s) with damage to nail, initial encounterContus ion of right lesser toe(s) with damage to nail, initial encounterOther specified peripheral vascular diseasesTinea unguium 4 Jacobo Branham [address] [facility], [address], [place], [place], Formerly [facility], [facility], . Referring Provider: Gabriele England. [facility] NF CARE SF MDM [address] [place] [address], [address] [place], [place] [address]te [facility], [place], [place], [id number], tel:[phone] [place] Other specified peripheral vascular diseasesTinea unguiumContusio n of right great toe without damage to nail, initial encounter 4 Jacobo Branham [address] [facility], [address], [place], [facility], [facility], [place]. Referring Provider: Gabriele England. [facility], [address], [place], [place], [id number], [place] tel:[phone] [place] No Information 4 Jacobo Boykin. [address], [address], [place], [address], [place]. [facility], [address] [place], [place] [address], [place], [place], [id number], [place] tel:[phone] [place] ear care exam (chief complaint) Impacted cerumen, bilateral Dec-0 3 Manchester-Hard lili Mackenzie. [address], [address], [place], [address], [place]. Referring Provider: Jeb Kumar. [facility], [address] [facility] [address], [place], [place], [id number], [place] tel:[phone] [place] Cataract (chief complaint) Combined forms of age-related cataract, bilateral Jan- 3 Camille Mathur. [address], [address], [place], [address], [place]. Referring Provider: Jeb Kumar. [facility], [address] [place] [address] [address], [place], [place], [id number], [place] tel:[phone] [place] Other specified peripheral vascular diseasesTinea unguium Sep- 3 Jacobo Boykin. [address], [address], [place], [address], [place]. [facility], [address] [place] [address] [address], [place], [place], [id number], [place] tel:[phone] [place] Other specified peripheral vascular diseasesTinea unguium Desmond- 3 Jacobo Boykin. [address], [address], [place], [address], [place]. Referring Provider: Gabriele England. [facility], [address], [place], [place], [id number], [place] tel:[phone] [place] Cataract (chief complaint) Combined forms of age-related cataract, bilateral May-2 6-202 3 Camille Mathur. [address] [facility], [address], [place], [address], [place]. Referring Provider: Jeb Kumar. [address] [place] [address], [address] [place] [address] [address], [place], [place], [id number], [place] tel:[phone] [place] Encounter for examination of ears and hearing without abnormal findings 3 Josiah Ness. , [place]. Referring Provider: Jeb Kumar. NURSING FAC CARE SUBSEQ [address] [place] [address], [address] [place] [address] [address], [place], [place], [id number], [place] tel:[phone] [place] Contusion of left lesser toe(s) with damage to nail, initial encounterTinea unguiumOther specified peripheral vascular diseases 3 Jacobo Boykin. [address] [facility], [address], [place], [address], [place]. Referring Provider: Gabriele England. [address] [place] [address], [address] [place], [place] [address], [place], [place], [id number], [place] tel:[phone] [place] hearing loss (chief complaint) Impacted cerumen, bilateral 3 Michelle-Hard lili Mackenzie. [address] [facility], [address], [place], [address], [place]. Referring Provider: Jeb Kumar. [address] [place] [address], [address] [place] [address] [address], [place], [place], [id number], [place] tel:[phone] [place] No Information 3 Michelle-Hard lili Mackenzie. [address] [facility], [address], [place], [address], [place]. [address] [place] [address], [address] [place] [address], [place], [place], [id number], [place] tel:[phone] [place] Encounter for dental examination and cleaning without abnormal findings 3 [facility] , [place]. Referring Provider: Jeb Kumar. NURSING FAC CARE SUBSEQ [address] [place] [address], [address] [place] [address] [address], [place], [place], [id number], tel:[phone] [place] Contusion of left great toe without damage to nail, initial encounterContus ion of left lesser toe(s) without damage to nail, initial encounterTinea unguiumOther specified peripheral vascular diseases 2 Jacobo Boykin. [address] [facility], [address], [place], [address], [place]. Referring Provider: Jeb Kumar. [facility], [address] [place] [address] [address], [place], [place], [id number], tel:[phone] [place] hearing loss (chief complaint) Impacted cerumen, bilateral 2 [place]-Hard lili Mackenzie. [address] [facility], [address], [place], [address], [place]. Referring Provider: Jeb Kumar. [facility], [address] [place] [address] [address], [place], [place], [id number], tel:[phone] [place] Other specified peripheral vascular diseasesTinea unguiumIngrowin g nail 2 [place], [place]. Referring Provider: Jeb Kumar. [facility], [address] [place] [address] [address], [place], [place], [id number], tel:[phone] [place] Presbyopia 2 Camille Kareen. [address] [facility], [address], [place], [address], [place]. [facility], [address] [place], [place] [address] [address], [place], [place], [id number], tel:[phone] [place] Cataract (chief complaint) Combined forms of age-related cataract, bilateral 2 Kreinest Kareen. [address] [place] [address], [address], [place], [address], [place]. Referring Provider: Jeb Kumar. [facility], [address] [place] [address] [address], [place], [place], [id number], tel:[phone] [place] hearing loss (chief complaint) Impacted cerumen, left ear Oct-0 1 [place]-Hard lili Mackenzie. [address] [facility], [address], [place], [address], . Referring Provider: Jeb Kumar. [address] [place] [address], [address] [place] [address], [place], [place], [id number], tel:[phone] [place] Tinea unguiumOther specified peripheral vascular diseases 1 [place], [place]. Referring Provider: Jeb Kumar. NURSING FAC CARE SUBSEQ [address] [place] [address], [address] [place] [address], [place], [place], [id number], tel:[phone] [place] Tinea unguiumOther specified peripheral vascular diseases 1 [place], [place]. Referring Provider: Jeb Kumar. [address] [place] [address], [address] [place] [address], [place], [place], [id number], [place] tel:[phone] [place] Encounter for dental exam and cleaning w/o abnormal findings 1 Diogenes Alvarez. [address] [facility], [address], [place], [place], [id number], [place]. tel:[phone] Referring Provider: Jeb Kumar. [address] [place] [address], [address] [place] [address], [place], [place], [id number], tel:[phone] [place] Tinea unguiumCorns and callositiesOthe r specified peripheral vascular diseases 1 Jacobo Boykin. [address] [facility], [address], [place], [address], [place]. Referring Provider: Jeb Kumar. [address] [place] [address], [address] [place] [address], [place], [place], [address], [place] tel:[phone] [place] hearing loss (chief complaint) Impacted cerumen, bilateral Apr- 1 Michelle-Hard lili Mackenzie. [address] [facility], [address], [place], [address], [place]. Referring Provider: Jeb Kumar. [facility], [address] [facility] [address], [place], [place], [id number], tel:[phone] [place] Tinea unguiumOther specified peripheral vascular diseasesCorns and callosities Charly-202 1 Jacobo Boykin. [address] [facility], [address], [place], [address], [place]. Referring Provider: Jeb Kumar. [facility], [address] [facility] [address], [place], [place], [address], [place] tel:[phone] [place] Tinea unguiumOther specified peripheral vascular diseasesCorns and callosities 0 Jacobo Boykin. [address] [facility], [address], [place], [address], [place]. Referring Provider: Lanny Buckner. [facility], [address] [place] [address], [place], [place], [id number], tel:[phone] [place] Sensorineural hearing loss, bilateral Oct-1 6-202 0 Adam Chelci. [address] [facility], [address], [place], [place], [address], [place]. tel:[phone] Referring Provider: Jeb Kumar. [facility], [address] [facility] [address], [place], [place], [id number], tel:[phone] [place] hearing loss (chief complaint) Impacted cerumen, bilateral Oct-0 5-202 0 [place]-Hard lili Mackenzie. [address] [facility], [address], [place], [address], [place]. Referring Provider: Jeb Kumar. [facility], [address] [facility] [address], [place], [place], [address], [place] tel:[phone] [place] Glaucoma, pressure check (chief complaint) Cataract (chief complaint) Combined forms of age-related cataract, bilateral Sep-1 1-202 0 Piper Doe. [address] [facility], [place], [address], [place]. tel:[phone] Referring Provider: Jeb Kumar. [facility], [address] [facility] [address], [place], [place], [id number], [place] tel:[phone] [place] No Information 0 Poppy Dinero. [address] [facility], [address], [place], [place], [address], [place]. tel:[phone] Referring Provider: Jeb Kumar. [facility], [address] [facility] [address], [place], [place], [id number], [place] tel:[phone] [place] Tinea unguiumOther specified peripheral vascular diseasesCorns and callosities 0 Jacobo Boykin. [address] [facility], [address], [place], [address], [place]. Referring Provider: Choco Al. [facility], [address] [place] [address], [place], [place], [address], tel:[phone] [place] Tinea unguiumOther specified peripheral vascular diseasesCorns and callosities 0 Jacobo Boykin. [address] [facility], [address], [place], [address], [place]. Referring Provider: Jeb Kumar. [facility] [place], [address] [facility] [address], [place], [place], [address], tel:[phone] [place] Cataract (chief complaint) Combined forms of age-related cataract, bilateral 0 0 Piper Doe. [address] [facility], [place], [address], [place]. tel:[phone] Referring Provider: Jeb Kumar. [facility], [address] [facility] [address], [place], [place], [id number], [place] tel:[phone] [place] hearing loss (chief complaint) Impacted cerumen, bilateral 0 Michelle-Hard lili Mackenzie. [address] [facility], [address], [place], [address], [place]. Referring Provider: Jeb Kumar. [facility], [address], [place], [place], [address], [place] tel:[phone] [place] Tinea unguiumOther specified peripheral vascular diseases Nov-2 0 9 Jacobo Boykin. [address] [facility], [address], [place], [address], [place]. Referring Provider: Jeb Kumar. [facility], [address] [facility] [address], [place], [place], [address], [place] tel:[phone] [place] Encounter for dental exam and cleaning w/o abnormal findings Sep-2 6 9 Dianehector Kristopher. [address] [facility], [address], [place], [address], [place]. tel:[phone] Referring Provider: Jeb Kumar. [facility], [address] [facility] [address], [place], [place], [id number], [place] tel:[phone] [place] Tinea unguiumOther specified peripheral vascular diseases Dec- 8 9 Jacobo Boykin. [address] [facility], [address], [place], [address], [place]. Referring Provider: Jeb Kumar. [facility], [address] [facility] [address], [place], [place], [id number], [place] tel:[phone] [place] medical eye problem (chief complaint) Combined forms of age-related cataract, bilateral Nov- 9 Krerezat Kareen. [address] [facility], [address], [place], [address], [place]. Referring Provider: Jeb Kumar. [facility], [address] [facility] [address], [place], [place], [id number], [place] tel:[phone] [place] hearing loss (chief complaint) Impacted cerumen, bilateral Desmond-0 3 9 Michelle-Hard lili Mackenzie. [address] [facility], [address], [place], [address], [place]. Referring Provider: Jeb Kumar. [facility], [address] [facility] [address], [place], [place], [address], [place] tel:[phone] [place] Tinea unguiumOther specified peripheral vascular diseases 9 Jacobo Boykin. [address], [address], [place], [address], [place]. Referring Provider: Jeb Kumar. [facility], [address], [place], [place], [address], tel:[phone] [place] Tinea unguiumOther specified peripheral vascular diseases Jun-0 9 Jacobo Boykin. [address], [address], [place], [address], [place]. [facility], [address] [place], [place] [address] [address], [place], [place], [address], tel:[phone] [place] Tinea unguiumOther specified peripheral vascular diseases Mar-2 8 Jacobo Ashutosh. [address] [facility], [address], [place], [address], [place]. [facility], [address], [place], [place], [id number], [place] tel:[phone] [place] hearing loss (chief complaint) Impacted cerumen, bilateral Dec-1 3- 8 Michelle-Hard lili Mackenzie. [address] [facility], [address], [place], [address], [place]. Referring Provider: Jeb Kumar. [facility], [address] [place], [place] [address] [address], [place], [place], [id number], [place] tel:[phone] [place] decreased vision (chief complaint) Combined forms of age-related cataract, bilateral Dec-0 4- 8 Camille Mathur. [address] [facility], [address], [place], [address], [place]. Referring Provider: Jeb Kumar. [facility], [address], [place], [place], [address], [place] tel:[phone] [place] No Information Dec-0 2- 8 Camille Mathur. [address] [facility], [address], [place], [address], [place]. [facility] [place], [address], [place], [place], [address], [place] tel:[phone] [place] Tinea unguiumOther specified peripheral vascular diseases 8 Jacobo Boykin. [address] [facility], [address], [place], [address], [place]. Family History Family Member Type Diagnosis Age At Onset No Information Payers Payer name Insurance type Covered libertarian ID Authoriza tion(s) Medicare [facility] [id number] Medicaid [facility] [id number] Social History Type Description Quantity Date Captured Comments Alcohol Use Details Unknown Caffeine Use Details Unknown Tobacco Use Status No Information Smoking Status No Information Sex Male Chief Complaint And Reason For Visit From encounter dated 10/05/2023 13:40'. ear care exam (chief complaint) Reason For Referral Reason For Referral No Information Plan Of Treatment Date Type Action Status Referral Ordered: Jeb Gonzalez -Family Medicine (related to Impacted cerumen, bilateral) ordered Referral Referred To: Jeb Gonzalez Ordered: Referrals: Family Medicine. Jeb Gonzalez. Consult ordered Appointment Renan Goncalves BOOKED Patient Education Learning About Dental Care and Your Health Problem completed Patient Education Earwax Blockage: Care I nstructions completed Patient Education Earwax Blockage: Care I nstructions completed Patient Education Learning About Dental Care and Your Health Problem completed Patient Education Earwax Blockage: Care I nstructions completed Patient Education Earwax Blockage: Care I nstructions completed Patient Education Toenail Fungus: Care In structions completed Patient Education Learning About Dental Care and Your Health Problem completed Patient Education Toenail Fungus: Care In structions completed Patient Education Earwax Blockage: Care I nstructions completed Patient Education Toenail Fungus: Care In structions completed Patient Education Toenail Fungus: Care In structions completed Patient Education Earwax Blockage: Care I nstructions completed Patient Education Cataracts: Care Instruc tions completed Patient Education Toenail Fungus: Care In structions completed Patient Education Earwax Blockage: Care I nstructions completed Patient Education Toenail Fungus: Care In structions completed Patient Education Learning About Dental C are and Your H~ completed Patient Education Dental X-Ray: About Thi s Test completed Patient Education Toenail Fungus: Care In structions completed Patient Education Reduced Vision: Care In structions completed Patient Education Earwax Blockage: Care I nstructions completed Patient Education Toenail Fungus: Care In structions completed Patient Education Toenail Fungus: Care In structions completed Patient Education Toenail Fungus: Care In structions completed Patient Education Earwax Blockage: Care I nstructions completed Patient Education Reduced Vision: Care In structions completed Patient Education Toenail Fungus: Care In structions completed History Of Present Illness Encounter Date Complaint History Of Prese nt Illness Cataract The 77 year old patient presents for evaluation of Cataract in the right eye and left eye. It occurs doing close work. The onset was gradual. It affects near vision. Cataract The 77 year old patient presents for evaluation of Cataract in the right eye and left eye. It occurs all the time. The onset was progressive. It affects distance vision. Cataract The 76 year old male presents for evaluation of Cataract in the right eye and left eye. It occurs all the time. The onset was gradual. It affects both near and far vision. The symptom is frequent. The condition is moderate. hearing loss The symptoms are reported as being moderate. trouble hearing with wax build up. Pt has history of cerumen impaction and itchy ears. Patient is not interested in audiology services at this time. Pt agrees to ear exam and cleaning if needed. Cataract Glaucoma, pressure check The 74 year old male presents for evaluation of Glaucoma, pressure check in the right eye and left eye. Cataract The 74 year old male presents for evaluation of Cataract. Vision very bad hearing loss The symptoms are reported as being moderate. The symptoms occur constantly. difficulty hearing. my ears feel full. pt reports h/o otc hearing aid use. states he no longer has it. not wearing any type of amplifying device at time of visit. Patient would like to see audiology. may be interested in hearing aids. Pt has history of cerumen impaction and itchy ears. Pt agrees to ear exam and cleaning if needed. medical eye problem The 73 year old male presents for evaluation of medical eye problem in the right eye and left eye. It occurs all the time. The onset was gradual. It affects both near and far vision. The symptom is frequent. The condition is moderate. The condition is described as hazy. cataract check hearing loss The symptoms are reported as being moderate. The symptoms occur constantly. left worse than right. has h/o qtip use. cotton removed from right ear at last visit. Pt has history of cerumen impaction and itchy ears. Patient is not interested in audiology services at this time. Pt agrees to ear exam and cleaning if needed. pt reports headache and left ear pain for 2 weeks. states he does not feel well. has had to blow nose some. hearing loss The symptoms are reported as being moderate. The symptoms occur constantly. i am told you're deaf . pt thinks he may be interested in hearing aids. used to use qtips. Pt agrees to ear exam and cleaning if needed. decreased vision The 72 year old male presents for evaluation of decreased vision in the right eye and left eye. It occurs all the time. The onset was gradual. It affects both near and far vision. The symptom is constant. The condition is moderate. Cataract check. Functional Status Date Functional Assessmen t No Information Instructions Date Instruction Additional Infor catherine Performed cerumen re moval as per protocol. AU cleared. Follow up for reevaluation for chronic cerumen impaction. Related to Impacted cerumen, bilateral Discussed with the mayco corona. No dressing needed at this time. Monitor for infection. Related to Contusion of right lesser toe(s) with damage to nail, initial encounter Discussed with the mayco corona. No dressing needed at this time. Monitor for infection. Related to Contusion of left lesser toe(s) with damage to nail, initial encounter Toenails 1-5 b/l wer e debrided in length and thickness without incident. Follow up in 2-3 months. Related to Tinea unguium Discussed with the mayco corona. No dressing needed at this time. Monitor for infection. Related to Contusion of right great toe without damage to nail, initial encounter Toenails x 9 were de brided in length and thickness without incident. Follow up in 2-3 months. Related to Tinea unguium Follow up in 6-9 mon ths or sooner if needed. Related to Impacted cerumen, bilateral Impression/Plan - Ca taracts are visually significant; However, Resident is not a good surgical candidate. 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 Follow up in 2-3 months. Related to Tinea unguium Toenails 1-5 b/l wer e debrided in length and thickness without incident. Follow up in 2-3 months. Related to Tinea unguium Impression/Plan - Ca taracts are visually significant; Please schedule for cataract evaluation with [facility] in [place]. 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 See prn for complaints Related to Encounter for examination of ears and hearing without abnormal findings Toenails x 9 were de brided in length and thickness without incident. Follow up in 2-3 months. Related to Tinea unguium Discussed with the mayco corona. No dressing needed at this time. Monitor for infection. Related to Contusion of left lesser toe(s) with damage to nail, initial encounter may f/u with audiolo gy if pt, family, and/or facility wish to pursue. Follow up in 6-9 months or sooner if needed. Related to Impacted cerumen, bilateral Discussed with the mayco corona. No dressing needed at this time. Monitor for infection. Related to Contusion of left lesser toe(s) without damage to nail, initial encounter Discussed with the mayco corona. No dressing needed at this time. Monitor for infection. Related to Contusion of left great toe without damage to nail, initial encounter Toenails 1-5 b/l wer e debrided in length and thickness without incident. Follow up in 2-3 months. Related to Tinea unguium Follow up in 6-9 mon ths or sooner if needed. Related to Impacted cerumen, bilateral Slant back performed. Related to Ingrowing nail Toenails 1-5 b/l wer e debrided in length and thickness. Superficial bleeding controlled with silver nitrate Left hallux. Band aid applied. Rx for bandaid and antibiotic cream to be applied daily x 1 week. Follow up in 2-3 months. Related to Tinea unguium We will schedule a f ollow up appointment in 6-9 months for a dilated fundus exam. 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 f/u with audiology as scheduled. Related to Impacted cerumen, left ear Toenails 1-5 b/l wer e debrided in length and thickness without incident. Follow up in 2-3 months. Related to Tinea unguium Nails 1-5 debrided b/l without i ncident Related to Tinea unguium All of the calluses were debrided/pared to prevent further tissue breakdown and pain. Related to Corns and callosities Toenails 1-5 b/l wer e debrided in length and thickness without incident. Follow up in 2-3 months. Related to Tinea unguium Follow up in 6-9 mon ths or sooner if needed. f/u with audiology as scheduled. pt awaiting hearing aids. discussed with nurse. Related to Impacted cerumen, bilateral All of the calluses were debrided/pared to prevent further tissue breakdown and pain. Related to Corns and callosities Toenails 1-5 b/l wer e debrided in length and thickness without incident. Follow up in 2-3 months. Related to Tinea unguium All of the calluses were debrided/pared to prevent further tissue breakdown and pain. Related to Corns and callosities Toenails 1-5 b/l wer e debrided in length and thickness without incident. Follow up in 2-3 months. Related to Tinea unguium Follow up in 6-9 mon ths or sooner if needed. Related to Impacted cerumen, bilateral Impression/Plan - Ca taracts are moderate and are affecting visual acuity; however, no treatment recommended at this time. We will monitor for progression. 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 Related to Corns and callosities Toenails 1-5 b/l wer e debrided in length and thickness without incident. Follow up in 2-3 months. Related to Tinea unguium All of the calluses were debrided/pared to prevent further tissue breakdown and pain. Related to Corns and callosities Toenails 1-5 b/l wer e debrided in length and thickness without incident. Follow up in 2-3 months. Related to Tinea unguium Impression/Plan - Ca taracts are visually significant; Please schedule for cataract evaluation with [facility] facility choice. 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 Follow up in 6-9 months or sooner if needed. Related to Impacted cerumen, bilateral Toenails 1-5 b/l wer e debrided in length and thickness without incident. Follow up in 2-3 months. Related to Tinea unguium Toenails 1-5 b/l wer e debrided in length and thickness without incident. Follow up in 2-3 months. Related to Tinea unguium We will schedule a f ollow up appointment in 6-9 months for a dilated fundus exam. 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 Not able to check for glasses - cataracts too dense. 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 pt unable to tell if cerumen removal improved ear pain. pt continues to report head ache. refer to pcp for evaluation and treatment of reported symptoms. discussed with pt's nurse. nurse states she will also give him pain meds if due. Follow up in 6-9 months or sooner if needed. Related to Impacted cerumen, bilateral Toenails 1-5 b/l wer e debrided in length and thickness without incident. Follow up in 2-3 months. Related to Tinea unguium Toenails 1-5 b/l wer e debrided in length and thickness without incident. Follow up in 2-3 months. Related to Tinea unguium Toenails 1-5 b/l wer e debrided in length and thickness without incident. Follow up in 2-3 months. Related to Tinea unguium Counseled patient on risks associated with placing foreign bodies in ear canal, such as jasmine pins and/or qtips. Pt verbalized understanding. may refer to audiology if pt, family, and/or facility wish to pursue. Follow up in 6-9 months or sooner if needed. Related to Impacted cerumen, bilateral Follow up - We will schedule a follow up appointment in 6-9 months for a dilated fundus exam. Impression/Plan - Ca taracts are visually significant; but pt does not want surgery. TOld pt specs are likely not going to home much. Could not get auto OS today. Have measurements in ehs. 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 Follow up in 2-3 months. Related to Tinea unguium Assessments Type Assessment Date assessment Impacted cerumen, bilateral Patient Care Teams Name Effective Dates (start - stop) Status Members No Information
[2023-11-07 12:20] LABS: Albumin Level 3.6 g/dl (3.5-5.0); Chloride 100 mmol/L (98-107); Sodium 138 mmol/L (136-145)
[2023-11-07 12:21] LABS: Basophils % 0.3 % (0.1-2.0); Eosinophils # 0.3 K/mm3 (0.0-0.4); Eosinophils % 3.6 % (0.1-12.0); Hematocrit 38.8 % (42.0-52.0); Lymphocytes # 0.6 K/mm3 (0.7-4.5); Lymphocytes % 6.1 % (10-50); Mean Corpuscular HGB Conc 31.1 g/dL (31.8-35.4); Mean Corpuscular Hemoglobin 28.7 pg (27.0-31.2); Mean Corpuscular Volume 92.5 fl (80-94); Mean Platelet Volume 7.9 fl (7.4-10.4); Monocytes # 0.4 K/mm3 (0.1-1.0); Monocytes % 4.2 % (1.7-9.3); Neutrophils # 7.9 K/mm3 (1.8-7.8); Neutrophils % 85.9 % (37.0-80.0); Platelet Count 277 K/mm3 (142-424); Potassium 3.5 mmoL/L (3.5-5.1); Red Blood Count 4.19 M/mm3 (4.60-6.20); White Blood Count 9.2 K/mm3 (4.8-10.8)
[2023-11-07 12:23] LABS: Alanine Aminotransferase 55 U/L (12-78); Albumin/Globulin Ratio 0.9 (1.1-1.8); Alkaline Phosphatase 94 U/L (38-126); Anion Gap 10.5 mEq/L (5-15); Aspartate Amino Transferase 58 U/L (17-59); Bilirubin,Total 0.3 mg/dl (0.2-1.3); Blood Urea Nitrogen 24 mg/dl (9-20); Carbon Dioxide 31 mmol/L (22.0-30.0); Creatinine Clearance Estimated 70 mL/min (50-200); Estimated Glomerular Filt Rate 45 ml/min (>60); GFR (African American) 55 ML/MIN (>60); Globulin 3.8 g/dL (1.3-3.2); Lactic Acid 2.5 mmol/L (0.7-2.1); Total Protein,Serum 7.4 g/dl (6.3-8.2)
[2023-11-07 12:24] LABS: Calcium 8.8 mg/dl (8.4-10.2); Glucose 140 mg/dl (74-100); Lipase 90 U/L (23-300)
--- NOTE | 2023-11-07 12:31 | PC.NURSE ---
patient gone to CT at this time.
--- NOTE | 2023-11-07 12:39 | PC.NURSE ---
patient back in room at this time.
[2023-11-07] MEDS: SODIUM CHLORIDE 0.9% 10ML SYR (RAD ONLY) 10 ML IV (12:40)
[2023-11-07] MEDS: IOPAMIDOL-370 (76%);100ML BOTTLE 75 ML IV (12:40)
[2023-11-07 12:47] LABS: MANUAL DIFFERENTIAL MANUAL DIFFERENTIAL (MANUAL DIFF)
[2023-11-07 13:56] LABS: Eosinophils % 1 % (0-3); Lymphocytes % 9 % (10-50); Monocytes % 2 % (2-9); Neutrophils % 88 % (42-76); Platelet Estimate Normal; RBC Morphology Normal; Total Cells Counted 100
--- NOTE | 2023-11-07 14:40 | PC.NURSE ---
Radiology called related to ct scan.
--- NOTE | 2023-11-07 15:05 | PC.NURSE ---
CALLING [facility] TRANSFER TO [facility]
--- NOTE | 2023-11-07 15:45 | PC.NURSE ---
called lab to notify we would like to have the UA with micro completed from the cath sample from today. Pt had a UA completed yesterday as well.
[2023-11-07 15:47] LABS: Microscopic, Urine URINE MICROSCOPIC (MICROSCOPIC)
[2023-11-07 15:53] LABS: Appearance,Urine CLEAR (Clear); Bilirubin,Urine Negative (Negative); Blood, Urine 3+ (Negative); Color,Urine YELLOW (Yellow); Glucose,Urine (UA) Negative (Negative); Ketones,Urine Negative (Negative); Leukocyte Esterase,Urine 1+ (Negative); Nitrate,Urine Negative (Negative); PH,Urine 6.5 (5.0-8.5); Protein,Urine Negative (Negative); Urobilinogen,Urine 0.2 EU/dl (0.2)
[2023-11-07 16:01] LABS: Bacteria,Urine Trace /lpf; RBC,Urine 50-100 #/hpf (0-3); Squamous Epithelial Cell,Urine Occasional #/hpf (0-5)
[2023-11-07 16:09] LABS: Reflex Lactic Add Lactic Reflex
[2023-11-07 16:32] LABS: Lactic Acid Follow Up (RFLX 1) 3.2 mmol/L (0.7-2.1)
--- NOTE | 2023-11-07 17:56 | PC.NURSE ---
Called [facility] transfer center to initiate possible transfer, they will have to call back. desktop support technician is power-sharing images.
[2023-11-07 18:22] LABS: Reflex Lactic (2 hrs) Add Lactic Reflex
[2023-11-07] MEDS: CEFTRIAXONE SODIUM 2 GM in 0.9 % SODIUM CHLORIDE 100 ML IV (18:40)
--- NOTE | 2023-11-07 18:42 | ECG_ITS ---
APPROVED REPORT Exam: Resting ECG HR:115 bpm ECG Measurements Heart Rate 115 AXES QRSd 163 QRS 135 QT 352 T 37 QTc 420 Conclusion ATRIAL FIBRILLATION WITH RAPID VENTRICULAR RESPONSE INTRAVENTRICULAR CONDUCTION DELAY [130+ ms QRS DURATION] POSSIBLE RIGHT VENTRICULAR HYPERTROPHY [SOME/ALL OF: PROMINENT R IN V1, LATE TRANSITION, RAD, MICHAEL, SSS] SEPTAL MYOCARDIAL INFARCTION , OF INDETERMINATE AGE [40+ ms Q WAVE IN V1/V2] ABNORMAL ECG Electronically signed by : BRITNI AGUILAR, 11/07/2023 21:54:39
[2023-11-07] MEDS: dilTIAZem 25MG/5ML VIAL 10 MG IV (19:07)
[2023-11-07] MEDS: dilTIAZem HCL 100 MG in 0.9 % SODIUM CHLORIDE 100 ML 10 MG IV (19:07)
--- NOTE | 2023-11-07 19:15 | PC.NURSE ---
Updated H[facility] that pt will be transferred to [facility]
--- NOTE | 2023-11-07 19:40 | PC.NURSE ---
rounded on pt. pt voices no needs at this time. HR currently 90's to low 100's so diltizem gtt not titrated at this time.
--- NOTE | 2023-11-07 20:07 | PC.NURSE ---
HR on tele noted to be 80's to 90s. Diltizem gtt titrated to 5mg/hr.
--- NOTE | 2023-11-09 03:08 | PC.NURSE ---
faxed prelim results to [facility] for continuity of care [phone]
--- NOTE | 2023-11-12 17:25 | PC.NURSE ---
faxed final blood culture results to where pt was transferred. [phone]
== END 2023-11-07 20:41 | disposition short-term general hospital (02) ==
PROVIDERS: Emergency Medicine; Emergency Provider Emergency Medicine; PCP Internal Medicine Adolescent Medicine
DX: N13.0 Hydronephrosis with ureteropelvic junction obstruction (principal); R74.02 Elevation of levels of lactic acid dehydrogenase [LDH]; E87.29 Other acidosis; B95.7 Other staphylococcus as the cause of diseases classified elsewhere; N13.4 Hydroureter; I48.91 Unspecified atrial fibrillation; K86.89 Other specified diseases of pancreas; F03.90 Unspecified dementia, unspecified severity, without behavioral disturbance, psychotic disturbance, mood disturbance, and anxiety; I11.0 Hypertensive heart disease with heart failure; I50.42 Chronic combined systolic (congestive) and diastolic (congestive) heart failure; K21.9 Gastro-esophageal reflux disease without esophagitis; E78.5 Hyperlipidemia, unspecified
CPT/HCPCS: 51702; 74177; 80053; 81001; 83605; 83690; 85007; 85025; 85027; 87040; 87077; 87086; 87186; 93005; 96361; 96365; 96366; 96367; 96375; 99285; J0696; J7120; Q9967

== ENCOUNTER 2023-11-21 15:31 | Outpatient (CLI) | payer MEDICARE, MEDICAID, SELFPAY ==
[2023-11-21 15:48] LABS: Microscopic, Urine URINE MICROSCOPIC (MICROSCOPIC)
[2023-11-21 15:52] LABS: Appearance,Urine CLEAR (Clear); Bilirubin,Urine Negative (Negative); Blood, Urine 3+ (Negative); Color,Urine YELLOW (Yellow); Glucose,Urine (UA) Negative (Negative); Ketones,Urine Negative (Negative); Leukocyte Esterase,Urine 3+ (Negative); Nitrate,Urine POSITIVE (Negative); Protein,Urine TRACE (Negative); Specific Gravity, Urine 1.015 (1.005-1.030); Urobilinogen,Urine 0.2 EU/dl (0.2)
[2023-11-21 16:02] LABS: RBC,Urine TNTC #/hpf (0-3); WBC,Urine TNTC #/hpf (0-3)
[2023-11-21 16:03] LABS: Bacteria,Urine 4+ /lpf
== END 2023-11-21 23:59 | disposition home or self-care (01) ==
LOC: LAB.DROPOF 15:32
PROVIDERS: PCP Nurse Practitioner Family; Visit Provider Nurse Practitioner Family
DX: N13.2 Hydronephrosis with renal and ureteral calculous obstruction (principal)
CPT/HCPCS: 81001; 87086; 87088; 87186

== ENCOUNTER 2024-02-05 12:59 | Emergency (ER) | payer MEDICARE, MEDICAID, SELFPAY ==
[2024-02-05] VITALS (16 sets, daily range): BP systolic 94–154; BP diastolic 51–97; PULSE 80–126; RESP 12–28; TEMP 36.7; O2SAT 91–98; BMI 40.6
--- NOTE | 2024-02-05 13:20 | PC.NURSE ---
DR GAYLE AT BEDSIDE
--- NOTE | 2024-02-05 13:38 | XR_ITS ---
PROCEDURE INFORMATION: Exam: XR Chest Exam date and time: 02/05/2024 3:26 PM Age: 78 years old Clinical indication: Other: AMS; Additional info: Altered mental status TECHNIQUE: Imaging protocol: Radiologic exam of the chest. Views: 1 view. COMPARISON: CT ANGIO CHEST 02/05/2024 3:25 PM FINDINGS: Lungs: There is mild pulmonary edema. Pleural spaces: No large effusion or pneumothorax. Heart/Mediastinum: Stable cardiac and mediastinal contours. Vasculature: There are calcifications of the aortic arch. Bones/joints: No evidence of acute osseous abnormalities within the visualized portions of the thoracic spine and ribs. Osseous structures appear appropriate for patient age. IMPRESSION: 1. There is mild pulmonary edema. 2. No dense parenchymal consolidation, pleural effusion, or pneumothorax.
--- NOTE | 2024-02-05 13:38 | CT_ITS ---
PROCEDURE INFORMATION: Exam: CT Abdomen And Pelvis With Contrast Exam date and time: 02/05/2024 3:25 PM Age: 78 years old Clinical indication: Other: AMS; Abdominal pain TECHNIQUE: Imaging protocol: Computed tomography of the abdomen and pelvis with contrast. Radiation optimization: All CT scans at this facility use at least one of these dose optimization techniques: automated exposure control; mA and/or kV adjustment per patient size (includes targeted exams where dose is matched to clinical indication); or iterative reconstruction. Contrast material: ISOVUE; Contrast volume: 80 ml; Contrast route: IV; COMPARISON: CT ANGIO CHEST 02/05/2024 3:25 PM FINDINGS: Lungs: 4 mm pulmonary nodule in the right lower lobe. Heart: Cardiomegaly Liver: 2.3 cm nodule in the right lobe of the liver adjacent to the gallbladder. It measures 30 Hounsfield units series 3, image 45, 46. Differential includes unusual diverticulum of the gallbladder. Gallbladder and biliary ducts: See Liver finding. Pancreas: Heterogeneous mass in the tail the pancreas measures 6.6 x 7.5 x 5.4 cm. Previous measurement was 7.3 x 7.1 cm. Spleen: Normal. No splenomegaly. Adrenal glands: Normal. No mass. Kidneys and ureters: 12 millimeter distal RIGHT ureteral calculus causes moderate dilatation of the RIGHT ureter, and RIGHT collecting system. (series 3, image 106) The RIGHT kidney is edematous .. 1.2 cm calculus in the right collecting system (series 4, image 47 and series 3, image 58).. 2 cm simple cyst right kidney. Multiple nonobstructing renal calculi Stomach and bowel: Unremarkable. No obstruction. No mucosal thickening. Appendix: No evidence of appendicitis. Intraperitoneal space: Unremarkable. No free air. No significant fluid collection. Vasculature: Unremarkable. No abdominal aortic aneurysm. Lymph nodes: Unremarkable. No enlarged lymph nodes. Urinary bladder: Unremarkable as visualized. Reproductive: The prostate is enlarged, greater than 5 cm. Recommend urology consult. Bones/joints: Unremarkable. No acute fracture. Soft tissues: Unremarkable. IMPRESSION: 1. 12 millimeter distal RIGHT ureteral calculus causes moderate dilatation of the RIGHT ureter, and RIGHT collecting system. (series 3, image 106) The RIGHT kidney is edematous .. 2. 1.2 cm calculus in the right collecting system (series 4, image 47 and series 3, image 58).. 3. Heterogeneous mass in the tail the pancreas measures 6.6 x 7.5 x 5.4 cm. Previous measurement was 7.3 x 7.1 cm. 4. The prostate is enlarged, greater than 5 cm. Recommend urology consult. 5. 4 mm pulmonary nodule in the right lower lobe. Fleischner Society follow up recommendations for incidental nodules are not indicated. Follow up per the patient's medical condition. 6. 2.3 cm nodule in the right lobe of the liver adjacent to the gallbladder. It measures 30 Hounsfield units series 3, image 45, 46. Differential includes unusual diverticulum of the gallbladder. Liver MRI may be helpful COMMENTS: Consistent with the [employer]'s Incidental Findings Committee white paper (J Am Deborah Radiol 2018): Any incidental renal lesion less than 1 cm or classified as too small to characterize, or any incidental cystic renal lesion characterized as simple-appearing, is likely benign. No follow-up imaging is recommended for these lesions per consensus recommendations based on imaging criteria.
--- NOTE | 2024-02-05 13:39 | CT_ITS ---
PROCEDURE INFORMATION: Exam: CTA Chest With Contrast Exam date and time: 02/05/2024 3:25 PM Age: 78 years old Clinical indication: Pain; Other: AMS; Chest pressure; Additional info: Altered mental status, chest pain TECHNIQUE: Imaging protocol: Computed tomographic angiography of the chest with contrast. Exam focused on the arteries. 3D rendering (Not supervised by radiologist): MIP and/or 3D reconstructed images were created by the technologist. Radiation optimization: All CT scans at this facility use at least one of these dose optimization techniques: automated exposure control; mA and/or kV adjustment per patient size (includes targeted exams where dose is matched to clinical indication); or iterative reconstruction. Contrast material: ISOVUE 370; Contrast volume: 80 ml; Contrast route: INTRAVENOUS (IV); COMPARISON: CT ANGIO NECK 02/05/2024 3:14 PM FINDINGS: Pulmonary arteries: No evidence of pulmonary embolus to the segmental level. Aorta: No aneurysm of the aorta. No dissection of the aorta. Lungs: Patchy bilateral Ground-glass opacities in the lung monteiro may represent atelectasis for pneumonia. Pleural spaces: Unremarkable. No pneumothorax. No pleural effusion. Heart: There is calcification of the aortic valve annulus. There is calcification of the mitral valve annulus. Coronary arteries: Coronary artery calcifications may indicate coronary artery disease. Lymph nodes: Pathologic node in the preaortic region 17 x 16 mm. Bones/joints: Calcification of the anterior longitudinal ligament Soft tissues: Unremarkable. IMPRESSION: 1. No evidence of pulmonary embolus to the segmental level. 2. No aneurysm of the aorta. 3. No dissection of the aorta. 4. Patchy bilateral Ground-glass opacities in the lung monteiro may represent atelectasis for pneumonia.
--- NOTE | 2024-02-05 13:39 | CT_ITS ---
PROCEDURE INFORMATION: Exam: CT Head Without Contrast Exam date and time: 02/05/2024 3:11 PM Age: 78 years old Clinical indication: Altered mental status/memory loss TECHNIQUE: Imaging protocol: Computed tomography of the head without contrast. Radiation optimization: All CT scans at this facility use at least one of these dose optimization techniques: automated exposure control; mA and/or kV adjustment per patient size (includes targeted exams where dose is matched to clinical indication); or iterative reconstruction. COMPARISON: 1. CT HEAD/BRAIN WO CON 02/05/2024 3:[address] HEAD/BRAIN WO CON 02/14/2023 6:[address] head/brain wo con 01/17/2018 10:27 PM FINDINGS: Brain: The brain parenchyma appears unremarkable, with no signs of acute intracranial hemorrhage or significant mass effect. There is hypodensity in the subcortical and periventricular white matter which is technically nonspecific but most often related to chronic microvascular disease. Cerebral ventricles: Mild ventricular enlargement consistent with age-related cerebral atrophy is noted. Paranasal sinuses: Paranasal sinuses show age-appropriate mucosal thickening. There are scattered areas of sinus mucosal thickening. Mastoid air cells: Visualized mastoid air cells are well aerated. Bones: There are no skull fractures or bony lesions. Soft tissues: Unremarkable. IMPRESSION: Presumably age-related and chronic changes without acute intracranial abnormality.
--- NOTE | 2024-02-05 13:39 | CT_ITS ---
PROCEDURE INFORMATION: Exam: CTA Neck With Contrast Exam date and time: 02/05/2024 3:14 PM Age: 78 years old Clinical indication: Other: AMS; Additional info: Altered mental status TECHNIQUE: Imaging protocol: Computed tomographic angiography of the neck with contrast. Exam focused on the cervical segments of the vasculature. 3D rendering (Not supervised by radiologist): MIP and/or 3D reconstructed images were created by the technologist. Radiation optimization: All CT scans at this facility use at least one of these dose optimization techniques: automated exposure control; mA and/or kV adjustment per patient size (includes targeted exams where dose is matched to clinical indication); or iterative reconstruction. Contrast material: ISOVUE 370; Contrast volume: 80 ml; Contrast route: INTRAVENOUS (IV); COMPARISON: 1. CT ANGIO HEAD 02/05/2024 3:[address] HEAD/BRAIN WO CON 02/14/2023 6:56 PM FINDINGS: Right common carotid artery: There is atherosclerotic disease of the right carotid bulb without significant stenosis of the internal carotid artery. Right internal carotid artery: No stenosis of the extracranial segment. No dissection or occlusion. Right external carotid artery: No occlusion or stenosis of the origin. Left common carotid artery: There is atherosclerotic disease of the left carotid bulb without significant stenosis of the internal carotid artery. Left internal carotid artery: No stenosis of the extracranial segment. No dissection or occlusion. Left external carotid artery: No occlusion or stenosis of the origin. Right vertebral artery: No stenosis. No dissection or occlusion. Left vertebral artery: No stenosis. No dissection or occlusion. Soft tissues: Normal. No significant soft tissue swelling. Bones/joints: No acute fracture. IMPRESSION: Atherosclerotic disease of the carotid bulbs without significant stenosis of the internal carotid arteries. REFERENCES: NASCET CRITERIA. The degree of stenosis in the cervical segment of the internal carotid artery is based on NASCET criteria. Normal is no stenosis. Mild is less than 50% stenosis. Moderate is 50-69% stenosis. Severe is 70% to 99% stenosis. Total occlusion is no detectable patent lumen.
--- NOTE | 2024-02-05 13:39 | CT_ITS ---
PROCEDURE INFORMATION: Exam: CTA Head With Contrast, Arteriography Exam date and time: 02/05/2024 3:14 PM Age: 78 years old Clinical indication: Other: AMS; Additional info: Altered mental status TECHNIQUE: Imaging protocol: Computed tomographic angiography of the head with contrast. Exam focused on the arteries. 3D rendering (Not supervised by radiologist): MIP and/or 3D reconstructed images were created by the technologist. Radiation optimization: All CT scans at this facility use at least one of these dose optimization techniques: automated exposure control; mA and/or kV adjustment per patient size (includes targeted exams where dose is matched to clinical indication); or iterative reconstruction. Contrast material: ISOVUE 370; Contrast volume: 80 ml; Contrast route: INTRAVENOUS (IV); COMPARISON: 1. CT HEAD/BRAIN WO CON 02/14/2023 6:[address] ANGIO NECK 02/05/2024 3:14 PM FINDINGS: ANTERIOR CIRCULATION: Right internal carotid artery: Intracranial segment is patent with no significant stenosis. No aneurysm. Right middle cerebral artery: No occlusion or significant stenosis. No aneurysm. Right anterior cerebral artery: No occlusion or significant stenosis. No aneurysm. Left internal carotid artery: Intracranial segment is patent with no significant stenosis. No aneurysm. Left middle cerebral artery: No occlusion or significant stenosis. No aneurysm. Left anterior cerebral artery: No occlusion or significant stenosis. No aneurysm. POSTERIOR CIRCULATION: Right vertebral artery: No occlusion or significant stenosis. No aneurysm. Left vertebral artery: No occlusion or significant stenosis. No aneurysm. Basilar artery: No occlusion or significant stenosis. No aneurysm. Right posterior cerebral artery: No occlusion or significant stenosis. No aneurysm. Left posterior cerebral artery: No occlusion or significant stenosis. No aneurysm. Brain: No definite mass, mass effect, or midline shift. Cerebral ventricles: No ventriculomegaly. Bones/joints: Unremarkable. No acute fracture. Soft tissues: Unremarkable. IMPRESSION: No large vessel stenosis or occlusion.
--- NOTE | 2024-02-05 13:40 | PC.NURSE ---
Pt responsive to painful stimuli.
--- NOTE | 2024-02-05 13:51 | ECG_ITS ---
APPROVED REPORT Exam: Resting ECG HR:96 bpm ECG Measurements Heart Rate 96 AXES QRSd 152 QRS 154 QT 397 T -23 QTc 450 Conclusion ATRIAL FIBRILLATION RIGHT BUNDLE BRANCH BLOCK [120+ ms QRS DURATION, UPRIGHT V1, 40+ ms S IN I/aVL/V4/V5/V6] LEFT POSTERIOR FASCICULAR BLOCK [QRS AXIS > 109, INFERIOR Q] ABNORMAL ECG UNCONFIRMED REPORT Electronically signed by : BRIGIDO GORDON, 02/06/2024 05:26:56
[2024-02-05 14:00] LABS: VBG HCO3 25.4 mmol/L (23-30); VBG Oxygen Saturation 60.3 % (50-70); VBG PCO2 45.5 mmol/L (35-51); VBG PH 7.36 mmol/L (7.31-7.41); VBG PO2 33.4 mmol/L (28-40); VBG Total CO2 26.8 mmol/L (23-27)
[2024-02-05 14:01] LABS: Basophils % 0.1 % (0.1-2.0); Eosinophils % 0.1 % (0.1-12.0); Hematocrit 36.1 % (42.0-52.0); Hemoglobin 11.3 g/dL (14.1-18.0); Lymphocytes # 0.6 K/mm3 (0.7-4.5); Lymphocytes % 4.1 % (10-50); Mean Corpuscular HGB Conc 31.2 g/dL (31.8-35.4); Mean Corpuscular Hemoglobin 28.6 pg (27.0-31.2); Mean Corpuscular Volume 91.8 fl (80-94); Mean Platelet Volume 8.3 fl (7.4-10.4); Monocytes # 0.8 K/mm3 (0.1-1.0); Monocytes % 5.3 % (1.7-9.3); Neutrophils # 13.6 K/mm3 (1.8-7.8); Neutrophils % 90.4 % (37.0-80.0); Platelet Count 238 K/mm3 (142-424); Red Blood Count 3.93 M/mm3 (4.60-6.20); Red Cell Distribution Width 17.8 % (11.5-17.5)
[2024-02-05 14:02] LABS: Albumin Level 3.5 g/dl (3.5-5.0); Chloride 101 mmol/L (98-107); Potassium 4.2 mmoL/L (3.5-5.1); Sodium 140 mmol/L (136-145)
[2024-02-05 14:03] LABS: Lactate Venous 4.6 mmol/L (0.4-2.0)
[2024-02-05 14:04] LABS: Blood Urea Nitrogen 30 mg/dl (9-20); Creatinine Clearance Estimated 46 mL/min (50-200); Estimated Glomerular Filt Rate 24 ml/min (>60); GFR (African American) 29 ML/MIN (>60)
[2024-02-05 14:05] LABS: Alanine Aminotransferase 30 U/L (12-78); Albumin/Globulin Ratio 0.9 (1.1-1.8); Alkaline Phosphatase 53 U/L (38-126); Anion Gap 15.2 mEq/L (5-15); Aspartate Amino Transferase 30 U/L (17-59); Calcium 8.6 mg/dl (8.4-10.2); Carbon Dioxide 28 mmol/L (22.0-30.0); Glucose 247 mg/dl (74-100); Lipase 38 U/L (23-300); Magnesium 2.2 mg/dl (1.6-2.3); Total Protein,Serum 7.5 g/dl (6.3-8.2)
[2024-02-05 14:06] LABS: MANUAL DIFFERENTIAL MANUAL DIFFERENTIAL (MANUAL DIFF)
[2024-02-05 14:14] LABS: Microscopic, Urine URINE MICROSCOPIC (MICROSCOPIC)
[2024-02-05 14:17] LABS: Troponin I 0.04 ng/ml (0.00-0.034)
--- NOTE | 2024-02-05 14:20 | PC.NURSE ---
Pt placed on 2 lpm nasal O2 due to SAo2 being 89% Pt have #20 IV placed and infusing in left AC Squad line in forarm flushes #20 IV in right hand flushes
--- NOTE | 2024-02-05 14:23 | P.CONPHA_ITS ---
Pharmacy Consult Date: 02/05/24 Time: 14:23 Referring provider: DR. GAYLE Reason for Consult:: VANCOMYCIN DOSING Allergies Allergy/AdvReac Type Severity Reaction Status Date / Time No Known Allergies Allergy Verified 09/20/22 21:35 Home Medications ?Medication ?Instructions ?Recorded ?Confirmed ?Type acetaminophen 500 mg tablet 500 mg PO BID Joint pain 04/21/19 02/15/23 History amlodipine 5 mg tablet 5 mg PO DAILY High Blood Pressure 04/21/19 02/15/23 History atorvastatin 10 mg tablet 10 mg PO QODHS Cholesterol 04/21/19 02/15/23 History donepezil 5 mg tablet 5 mg PO HS Memory 04/21/19 02/15/23 History doxazosin 1 mg tablet 1 mg PO HS High Blood Pressure 04/21/19 02/15/23 History oxcarbazepine 300 mg tablet 300 mg PO BID Mood 04/21/19 02/15/23 History pantoprazole 40 mg tablet,delayed 40 mg PO DAILY Acid Reflux 04/21/19 02/15/23 History release risperidone 2 mg tablet 2 mg PO BID Mood 04/21/19 02/15/23 History docusate sodium 250 mg capsule 250 mg PO Q48H Constipation 03/22/21 02/15/23 History polyethylene glycol 3350 17 gram 17 gm PO DAILYP PRN Constipation 03/22/21 02/15/23 History oral powder packet ondansetron 4 mg disintegrating 4 mg PO Q8HP PRN Nausea And 07/20/21 02/15/23 History tablet Vomiting ibuprofen 400 mg tablet 400 mg PO Q8HP PRN Mild Pain 02/14/23 02/15/23 History (Scale Score 1-4) sennosides 8.6 mg tablet 8.6 mg PO DAILYP PRN Constipation 02/14/23 02/15/23 History apixaban 5 mg tablet (Eliquis) 5 mg PO BID 30 days #60 tabs 02/16/23 Rx bumetanide 1 mg tablet 1 mg PO 0800,1400 30 days #60 tabs 02/16/23 Rx metoprolol succinate 100 mg 100 mg PO DAILY 30 days #30 tabs 02/16/23 Rx tablet,extended release 24 hr spironolactone 25 mg tablet 25 mg PO DAILY 30 days #30 tabs 02/16/23 Rx New Prescriptions to Start Prescriptions: Height: 1.83 m Weight: 136.078 kg Laboratory Results:: Laboratory Results - last 24 hr 02/05/24 13:38: VBG pH 7.36, VBG pCO2 45.5, VBG pO2 33.4, VBG HCO3 25.4, VBG Total CO2 26.8, VBG O2 Saturation 60.3, VBG Base Excess 0.0, VBG Lactic Acid 4.6 H 02/05/24 13:47: WBC 15.0 H, RBC 3.93 L, Hgb 11.3 L, Hct 36.1 L, MCV 91.8, MCH 28.6, MCHC 31.2 L, RDW 17.8 H, Plt Count 238, MPV 8.3, Neut % (Auto) 90.4 H, Lymph % (Auto) 4.1 L, [place] % (Auto) 5.3, Eos % (Auto) 0.1, Baso % (Auto) 0.1, Neut # (Auto) 13.6 H, Lymph # (Auto) 0.6 L, [place] # (Auto) 0.8, Eos # (Auto) 0.0, Baso # (Auto) 0.0, Sodium 140, Potassium 4.2, Chloride 101, Carbon Dioxide 28, Anion Gap 15.2 H, BUN 30 H, Creatinine 2.60 H, Estimated Creat Clear 46, Estimated GFR 24 L, Est GFR ( Amer) 29 L, Glucose 247 H, Calcium 8.6, Magnesium 2.2, Total Bilirubin 1.0, AST 30, ALT 30, Alkaline Phosphatase 53, Troponin I 0.04 H, Total Protein 7.5, Albumin 3.5, Globulin 4.0 H, Albumin/Michelle bulin Ratio 0.9 L, Lipase 38 Medical History: Medical History (Updated 11/07/23 @ 18:08 by Adrienne Velazquez DO) Dementia Obesity (BMI 30-39.9) Obesity, morbid (more than 100 lbs over ideal weight or BMI > 40) Chronic combined systolic (congestive) and diastolic (congestive) heart failure Osteopenia Lumbar spondylolysis Obesity Mass of pancreas Mass History of falling Neurocognitive disorder GERD (gastroesophageal reflux disease) Major depression Hyperlipemia HTN (hypertension) Chronic paranoid schizophrenia Hx of suicide attempt Assessment and Plan Assessment and plan all Dx Assessment and Plan for all problems:: Pharmacokinetic dosing service Objective: Patient: Floor: Age: 78 yo Serum creatinine: 2.6 mg/dL Height: 72.0 Inches Weight (kg): 136 Assessment: IBW (kg): 77.60 Dosing wt(kg): 136 Estimated Creatinine clearance (ml/min): 26.1 CRCL method: Cockcroft and Gault using ibw(default). Drug selected: Vancomycin Loading dose (mg): 0 Vd (liters): 108.8 (factor used: 0.8 L/kg) Nick (hr-1): 0.026 Half life (hrs): 26.66 Recommended dose: 2500 mg Interval: 36 hrs Infusion time (hrs): 2.0 Predicted peak (mcg/mL): 36.8 Predicted trough (mcg/mL): 15.20 Total body weight is being used for vancomycin dosing. Recommendations: Give Vancomycin 2500 mg q 36 hrs with an expected Cpeak of 36.8 mcg/ml and an expected Ctrough of 15.20 mcg/ml ----Vanco only - ignore for aminoglycosides----- CLvanco= 2.83 L/hr AUC 0-24 /LAURY Data: LAURY 0.5 mcg/mL: AUC/LAURY: 1177.9 LAURY 1.0 mcg/mL: AUC/LAURY: 588.9 --------- LAURY 1.5 mcg/mL: AUC/LAURY: 392.6 LAURY 2.0 mcg/mL: AUC/LAURY: 294.5
[2024-02-05 14:29] LABS: Bilirubin,Urine Negative (Negative); Blood, Urine 3+ (Negative); Color,Urine YELLOW (Yellow); Glucose,Urine (UA) Negative (Negative); Ketones,Urine Negative (Negative); Leukocyte Esterase,Urine 2+ (Negative); Nitrate,Urine Negative (Negative); Protein,Urine 2+ (Negative); Specific Gravity, Urine 1.025 (1.005-1.030); Urobilinogen,Urine 0.2 EU/dl (0.2)
[2024-02-05 14:40] LABS: Amphetamine/Metha Screen,Urine Negative ng/ml (<1000); Barbiturates Screen,Urine Negative ng/ml (<200)
[2024-02-05 14:41] LABS: Benzodiazepines Screen,Urine Negative ng/ml (<200); Cannabinoid Screen,Urine Negative ng/ml (<50)
[2024-02-05 14:42] LABS: Cocaine Screen,Urine Negative ng/ml (<300)
[2024-02-05 14:43] LABS: Methadone Screen,Urine Negative ng/ml (<300); Opiate Screen,Urine Negative ng/ml (<300)
[2024-02-05 14:44] LABS: Phencyclidine Screen,Urine Negative ng/ml (<25)
[2024-02-05] MEDS: VANCOMYCIN HCL 2,500 MG in 0.9 % SODIUM CHLORIDE 250 ML 125 MG IV (14:47)
[2024-02-05] MEDS: 0.9 % SODIUM CHLORIDE 1000ML 2,330 ML 1165 ML IV (14:47)
[2024-02-05 14:51] LABS: Appearance,Urine Turbid (Clear); Bacteria,Urine Trace /lpf; RBC,Urine Occasional #/hpf (0-3); Squamous Epithelial Cell,Urine Occasional #/hpf (0-5); WBC,Urine TNTC #/hpf (0-3)
[2024-02-05 14:55] LABS: Lymphocytes % 7 % (10-50); Monocytes % 2 % (2-9); Neutrophils % 91 % (42-76); Platelet Estimate Normal; RBC Morphology Normal; Total Cells Counted 100
[2024-02-05] MEDS: PIPERACILLIN/TAZO 4.5 GM in 0.9 % SODIUM CHLORIDE 100 ML IV (14:58)
--- NOTE | 2024-02-05 15:04 | PC.NURSE ---
Pt to CT scan via stretcher
--- NOTE | 2024-02-05 15:10 | [facility].EDGENADL ---
Discharge Plan Disposition Patient Disposition: Admitted Prescriptions Prescriptions: No Action donepezil 5 MG tablet 5 mg PO HS atorvastatin 10 MG tablet 10 mg PO QODHS doxazosin 1 MG tablet 1 mg PO HS oxcarbazepine 300 MG tablet 300 mg PO BID amlodipine 5 MG tablet 5 mg PO DAILY acetaminophen 500 MG tablet 500 mg PO BID risperidone 2 MG tablet 2 mg PO BID pantoprazole 40 MG tablet,delayed release (DR/EC) 40 mg PO DAILY sennosides 8.6 mg Tablet 8.6 mg PO DAILYP PRN (Reason: Constipation) ibuprofen 400 mg tablet 400 mg PO Q8HP PRN (Reason: Mild Pain (Scale Score 1-4)) Eliquis 5 mg Tablet 5 mg PO BID 30 Days Qty: 60 0RF metoprolol succinate 100 mg Tablet Extended Release 24 Hr 100 mg PO DAILY 30 Days Qty: 30 0RF spironolactone 25 mg Tablet 25 mg PO DAILY 30 Days Qty: 30 0RF bumetanide 1 mg tablet 1 mg PO 0800,1400 30 Days Qty: 60 0RF polyethylene glycol 3350 17 GM powder in packet 17 gm PO DAILYP PRN (Reason: Constipation) docusate sodium 250 MG capsule 250 mg PO Q48H ondansetron 4 MG tablet,disintegrating 4 mg PO Q8HP PRN (Reason: Nausea And Vomiting) Referrals Follow up/Referrals: Provider,Referral, MD [Primary Care Provider] - See instructions Clinical Impressions Clinical Impression: Acute encephalopathy, Acute UTI, Severe sepsis, KARINA (acute kidney injury), Hydronephrosis with renal and ureteral calculous obstruction Stand Alone Forms Stand Alone Forms: Transfer Record - ED Instructions Patient Instructions: DI for Altered Mental Status Print Language Print Language: Yakut Discharge ED Provider: Micheal Mattson General Adult HPI <Micheal Mattson DO - Last Filed: 02/05/24 15:56> General Chief complaint: Altered Mental Status Stated complaint: Syncopy Time Seen by Provider: 02/05/24 13:08 Mode of Arrival: EMS Source of Information: EMS Limitations: No Limitations Description of Symptoms (Recalled from ER Triage Doc. by RN): PT BROUGHT VIA [facility] FROM [facility] [address]. PT WAS EATING LUNCH AND BECAME DIAPHORETIC AND HAD HYPOTENSION. PT AROUSES TO PAINFUL STIMULI. History of Present Illness HPI narrative: 78yoM patient presents with a chief complaint of being found unresponsive at the long term after being awake and eating lunch. He was reportedly diaphoretic and cold-clammy, with a blood sugar level of 260-264 mg/dL. The patient has a history of schizophrenia and dementia. He is on Eliquis for atrial fibrillation. No history of recent falls or other precipitating events was reported. On arrival to ED patient airway breathing circulation intact. Blood pressure hemodynamically stable, mildly tachycardic, tachypneic, the patient's pupils were equal and reactive. GCS 10 Related Data Home Medications ?Medication ?Instructions ?Recorded ?Confirmed acetaminophen 500 mg tablet 500 mg PO BID Joint pain 04/21/19 02/15/23 amlodipine 5 mg tablet 5 mg PO DAILY High Blood Pressure 04/21/19 02/15/23 atorvastatin 10 mg tablet 10 mg PO QODHS Cholesterol 04/21/19 02/15/23 donepezil 5 mg tablet 5 mg PO HS Memory 04/21/19 02/15/23 doxazosin 1 mg tablet 1 mg PO HS High Blood Pressure 04/21/19 02/15/23 oxcarbazepine 300 mg tablet 300 mg PO BID Mood 04/21/19 02/15/23 pantoprazole 40 mg tablet,delayed 40 mg PO DAILY Acid Reflux 04/21/19 02/15/23 release risperidone 2 mg tablet 2 mg PO BID Mood 04/21/19 02/15/23 docusate sodium 250 mg capsule 250 mg PO Q48H Constipation 03/22/21 02/15/23 polyethylene glycol 3350 17 gram 17 gm PO DAILYP PRN Constipation 03/22/21 02/15/23 oral powder packet ondansetron 4 mg disintegrating 4 mg PO Q8HP PRN Nausea And 07/20/21 02/15/23 tablet Vomiting ibuprofen 400 mg tablet 400 mg PO Q8HP PRN Mild Pain 02/14/23 02/15/23 (Scale Score 1-4) sennosides 8.6 mg tablet 8.6 mg PO DAILYP PRN Constipation 02/14/23 02/15/23 Previous Rx's ?Medication ?Instructions ?Recorded apixaban 5 mg tablet (Eliquis) 5 mg PO BID 30 days #60 tabs 02/16/23 bumetanide 1 mg tablet 1 mg PO 0800,1400 30 days #60 tabs 02/16/23 metoprolol succinate 100 mg 100 mg PO DAILY 30 days #30 tabs 02/16/23 tablet,extended release 24 hr spironolactone 25 mg tablet 25 mg PO DAILY 30 days #30 tabs 02/16/23 Allergies Allergy/AdvReac Type Severity Reaction Status Date / Time No Known Allergies Allergy Verified 09/20/22 21:35 [facility] <Micheal Mattson, DO - Last Filed: 02/05/24 15:56> [facility] Disclaimer: The information contained in this section may have been updated after the patient was seen, as this information can be updated by other users. Medical History (Updated 02/05/24 @ 16:50 by Salima Otero MD) Dementia Obesity (BMI 30-39.9) Obesity, morbid (more than 100 lbs over ideal weight or BMI > 40) Chronic combined systolic (congestive) and diastolic (congestive) heart failure Osteopenia Lumbar spondylolysis Obesity Mass of pancreas Mass History of falling Neurocognitive disorder GERD (gastroesophageal reflux disease) Major depression Hyperlipemia HTN (hypertension) Chronic paranoid schizophrenia Hx of suicide attempt Social History Smoking Status: Unknown if ever smoked alcohol intake: never substance use type: denies use current occupational status: disabled Travel in the last 8 weeks: None housing: long term Other Medical History Have you received the Flu Vaccine for this season: No Have you received the Pneumonia Vaccine: No <Micheal Mattson, DO - Last Filed: 02/05/24 15:56> ROS Obtained: Yes unobtainable due to mental status Physical Exam <Micheal Mattson, DO - Last Filed: 02/05/24 15:56> General General appearance: obtunded Head Head exam: atraumatic and normocephalic Eye Eye exam: Present PERRL ENT ENT exam: Present normal exam and normal oropharynx Neck Neck exam: Present normal inspection and trachea midline Chest Chest inspection: Present normal inspection and symmetric chest wall rise; Absent tenderness Respiratory Respiratory exam: Present normal lung sounds bilaterally; Absent respiratory distress, wheezes or stridor Cardiovascular Cardiovascular exam: Present tachycardia and irregular rhythm Abdominal Exam Abdominal exam: Present soft; Absent distention, tenderness, guarding or rigidity Back Exam Back exam: Present normal inspection Neurological Exam Neurological exam: Present other (GCS 10, patient initially responded to pain however during assessment patient opened eyes to voice, confused speech, moves extremities to pain. Does not follow all commands) Psychiatric Psychiatric exam: Present other (Unable to assess due to altered mental status) Medical Decision Making <Micheal Mattson, - Last Filed: 02/05/24 15:56> Medical Records Medical records reviewed: Yes I reviewed the patient's medical records. Screening: Per USPSTF and CDC recommendations, given the prevalence of disease in our region, it is our hospital?s policy to screen for HIV and viral Hepatitis for all patients aged 18 and over and those with ongoing risk factors. Miles Inquiry Pt receiving controlled substance: No Miles was queried for this patient: No Vital Signs: 02/05/24 12:59 02/05/24 13:34 02/05/24 14:00 Temperature 98.1 F Temperature Source Oral Pulse Rate 80 103 H Pulse Rate [Apical] 95 H Respiratory Rate 18 28 H Blood Pressure 106/56 L 94/58 L Blood Pressure [Right Arm] 101/51 L Blood Pressure Mean 70 Blood Pressure Mean [Right Arm] 67 Blood Pressure Source [Right Arm] Automatic Cuff Blood Pressure Position [Right Arm] Sitting 02 Sat by Pulse Oximetry 98 94 L 91 L Oxygen Delivery Method Room Air Room Air Room Air 02/05/24 14:15 02/05/24 14:31 02/05/24 15:01 Temperature Temperature Source Pulse Rate 90 Pulse Rate [Apical] Respiratory Rate 12 Blood Pressure 112/52 L 107/51 L 124/59 L Blood Pressure [Right Arm] Blood Pressure Mean 71 69 Blood Pressure Mean [Right Arm] Blood Pressure Source [Right Arm] Blood Pressure Position [Right Arm] 02 Sat by Pulse Oximetry 97 Oxygen Delivery Method Room Air 02/05/24 15:34 02/05/24 15:45 02/05/24 16:00 Temperature Temperature Source Pulse Rate 99 H 103 H 90 Pulse Rate [Apical] Respiratory Rate 21 20 21 Blood Pressure Blood Pressure [Right Arm] Blood Pressure Mean Blood Pressure Mean [Right Arm] Blood Pressure Source [Right Arm] Blood Pressure Position [Right Arm] 02 Sat by Pulse Oximetry 94 L 95 96 Oxygen Delivery Method 02/05/24 16:06 02/05/24 16:15 02/05/24 16:30 Temperature Temperature Source Pulse Rate 108 H 98 H Pulse Rate [Apical] Respiratory Rate 20 22 Blood Pressure 128/53 L 109/58 L Blood Pressure [Right Arm] Blood Pressure Mean 75 Blood Pressure Mean [Right Arm] Blood Pressure Source [Right Arm] Blood Pressure Position [Right Arm] 02 Sat by Pulse Oximetry 96 96 Oxygen Delivery Method Room Air Lab Data Lab Results 02/05/24 13:38: VBG pH 7.36, VBG pCO2 45.5, VBG pO2 33.4, VBG HCO3 25.4, VBG Total CO2 26.8, VBG O2 Saturation 60.3, VBG Base Excess 0.0, VBG Lactic Acid 4.6 H 02/05/24 13:47: WBC 15.0 H, RBC 3.93 L, Hgb 11.3 L, Hct 36.1 L, MCV 91.8, MCH 28.6, MCHC 31.2 L, RDW 17.8 H, Plt Count 238, MPV 8.3, Neut % (Auto) 90.4 H, Lymph % (Auto) 4.1 L, [place] % (Auto) 5.3, Eos % (Auto) 0.1, Baso % (Auto) 0.1, Neut # (Auto) 13.6 H, Lymph # (Auto) 0.6 L, [place] # (Auto) 0.8, Eos # (Auto) 0.0, Baso # (Auto) 0.0, Total Counted 100, Neutrophils % (Manual) 91 H, Lymphocytes % (Manual) 7 L, Monocytes % (Manual) 2, Platelet Estimate Normal, RBC Morphology Normal, Sodium 140, Potassium 4.2, Chloride 101, Carbon Dioxide 28, Anion Gap 15.2 H, BUN 30 H, Creatinine 2.60 H, Estimated Creat Clear 46, Estimated GFR 24 L, Est GFR ( Amer) 29 L, Glucose 247 H, Calcium 8.6, Magnesium 2.2, Total Bilirubin 1.0, AST 30, ALT 30, Alkaline Phosphatase 53, Troponin I 0.04 H, Total Protein 7.5, Albumin 3.5, Globulin 4.0 H, Albumin/Globulin Ratio 0.9 L, Lipase 38 02/05/24 14:05: Urine Color Yellow, Urine Appearance Turbid, Urine pH 6.0, Ur Specific [place] 1.025, Urine Protein 2+ A, Urine Glucose (UA) Negative, Urine Ketones Negative, Urine Blood 3+ A, Urine Nitrate Negative, Urine Bilirubin Negative, Urine Urobilinogen 0.2, Ur Leukocyte Esterase 2+ A, Urine RBC Occasional, Urine WBC Tntc, Ur Squamous Epith Cells Occasional, Urine Bacteria Trace, Urine Opiates Screen Negative, Urine Methadone Screen Negative, Ur Barbituates Screen Negative, Ur Phencyclidine Scrn Negative, Ur Amphetamines Screen Negative, U Benzodiazepines Scrn Negative, Urine Cocaine Screen Negative, U Marijuana (THC) Screen Negative 02/05/24 14:06: Blood Type A Positive, Antibody Screen Negative 02/05/24 13:47 02/05/24 13:47 Orders (Tests/Meds): ED MEDICATIONS Discontinued Medications Generic Name Dose Route Start Last Admin Trade Name Freq PRN Reason Stop Dose Admin Sodium Chloride 2,330 mls @ 1,165 mls/hr 02/05/24 14:09 02/05/24 14:47 Sod Chlor 0.9% 1000ml Bag 30 ml/kg infuse over 2 hr (2330 ml) 02/05/24 16:08 1,165 mls/hr IV Administration .Q2H ONE Sodium Chloride 4,080 mls @ 2,040 mls/hr 02/05/24 14:11 02/05/24 14:44 Sod Chlor 0.9% 1000ml Bag 30 ml/kg infuse over 2 hr (4080 ml) 02/05/24 16:10 Not Given IV .Q2H ONE Protocol Piperacillin Sod/Tazobactam 100 mls @ 200 mls/hr 02/05/24 14:11 02/05/24 14:58 Sod 4.5 gm/ Sodium Chloride IV 02/05/24 14:40 200 mls/hr ONCE ONE Administration Vancomycin HCl 2,500 mg/ 250 mls @ 125 mls/hr 02/05/24 14:30 02/05/24 14:47 Sodium Chloride IV 02/05/24 16:29 125 mls/hr ONCE ONE Administration Iopamidol 160 ml 02/05/24 15:12 02/05/24 15:23 Iopamidol-370 (76%);100ml Bottle IV 02/05/24 15:13 160 ml ONCE ONE Administration Miscellaneous 1 each 02/05/24 14:15 Vancomycin Consult Request NOTAPPLIC 03/06/24 14:14 CONSULT PHARMACY [facility] Sodium Chloride 100 ml 02/05/24 15:12 02/05/24 15:23 0.9 % Sodium Chloride 50 Ml Vial IV 02/05/24 15:13 100 ml ONCE ONE Administration Sodium Chloride 10 ml 02/05/24 15:12 02/05/24 15:23 Sodium Chloride 0.9% 10ml Syr (Rad Only) IV 02/05/24 15:13 10 ml ONCE ONE Administration ORDERS Category Date Time Status Type and Screen Stat BBK 02/05/24 14:[address] abdomen pelvis w con Stat Cat Scan 02/05/24 13:[address] angio chest - dissection Stat Cat Scan 02/05/24 13:[address] angio head Stat Cat Scan 02/05/24 13:[address] angio neck Stat Cat Scan 02/05/24 13:[address] head/brain wo con Stat Cat Scan 02/05/24 13:39 Taken XR chest portable Stat Exams 02/05/24 13:38 Taken Complete Blood Count Auto Diff Stat Lab 02/05/24 13:47 Completed Comprehensive Metabolic Panel Stat Lab 02/05/24 13:47 Completed Drug Screen,Urine Stat Lab 02/05/24 14:05 Completed Full Resp Panel w/COVID ([facility]) Routine Lab 02/05/24 15:35 Received HIV (1&2) Antibody Rapid Stat Lab 02/05/24 13:47 Received Hep C Ab with Reflex to RNA Stat Lab 02/05/24 13:47 Received Lipase Stat Lab 02/05/24 13:47 Completed Magnesium Stat Lab 02/05/24 13:47 Completed Troponin I Q3H Lab 02/05/24 16:45 Ordered Troponin I Q3H Lab 02/05/24 19:45 Ordered Troponin I Stat Lab 02/05/24 13:47 Completed Urinalysis and Microscopic Stat Lab 02/05/24 14:05 Completed Blood Culture Stat Micro 02/05/24 14:05 Received Urine Culture Stat Micro 02/05/24 14:05 Received Venous Blood Gas Stat RT 02/05/24 13:38 Completed ECG Data Tracing #1: I reviewed this ECG and interpreted as documented below: Atrial fibrillation, ventricular rate 96 bpm, normal axis, right bundle branch block, no noted ST elevation Medical Decision Narrative: Patient with history and exam per above presenting for evaluation of altered mental status Diagnoses considered include sepsis, CVA, large vessel occlusion, ACS, pneumonia, UTI ED workup and treatment included: As above Labs were independently interpreted by me, significant for leukocytosis, anemia, VBG with elevated lactate of 4.6, patient being given IV fluids per sepsis protocol. No noted hypercarbia. Mildly elevated anion gap, KARINA. Elevated troponin with repeat pending. Urinalysis with UTI, noted hematuria. UDS negative. Blood cultures pending Radiographic imaging pending at time of signout My clinical impression at this time is most consistent with altered mental status, UTI, elevated troponin. Remainder of workup pending at time of signout to Dr. Otero. Patient care transferred at time of signout. <Salima Otero MD - Last Filed: 02/05/24 16:50> Vital Signs: 02/05/24 12:59 02/05/24 13:34 02/05/24 14:00 Temperature 98.1 F Temperature Source Oral Pulse Rate 80 103 H Pulse Rate [Apical] 95 H Respiratory Rate 18 28 H Blood Pressure 106/56 L 94/58 L Blood Pressure [Right Arm] 101/51 L Blood Pressure Mean 70 Blood Pressure Mean [Right Arm] 67 Blood Pressure Source [Right Arm] Automatic Cuff Blood Pressure Position [Right Arm] Sitting 02 Sat by Pulse Oximetry 98 94 L 91 L Oxygen Delivery Method Room Air Room Air Room Air 02/05/24 14:15 02/05/24 14:31 02/05/24 15:01 Temperature Temperature Source Pulse Rate 90 Pulse Rate [Apical] Respiratory Rate 12 Blood Pressure 112/52 L 107/51 L 124/59 L Blood Pressure [Right Arm] Blood Pressure Mean 71 69 Blood Pressure Mean [Right Arm] Blood Pressure Source [Right Arm] Blood Pressure Position [Right Arm] 02 Sat by Pulse Oximetry 97 Oxygen Delivery Method Room Air 02/05/24 15:34 02/05/24 15:45 02/05/24 16:00 Temperature Temperature Source Pulse Rate 99 H 103 H 90 Pulse Rate [Apical] Respiratory Rate 21 20 21 Blood Pressure Blood Pressure [Right Arm] Blood Pressure Mean Blood Pressure Mean [Right Arm] Blood Pressure Source [Right Arm] Blood Pressure Position [Right Arm] 02 Sat by Pulse Oximetry 94 L 95 96 Oxygen Delivery Method 02/05/24 16:06 02/05/24 16:15 02/05/24 16:30 Temperature Temperature Source Pulse Rate 108 H 98 H Pulse Rate [Apical] Respiratory Rate 20 22 Blood Pressure 128/53 L 109/58 L Blood Pressure [Right Arm] Blood Pressure Mean 75 Blood Pressure Mean [Right Arm] Blood Pressure Source [Right Arm] Blood Pressure Position [Right Arm] 02 Sat by Pulse Oximetry 96 96 Oxygen Delivery Method Room Air Lab Data Lab results reviewed: Yes I reviewed the patient's lab results. Lab Results 02/05/24 13:38: VBG pH 7.36, VBG pCO2 45.5, VBG pO2 33.4, VBG HCO3 25.4, VBG Total CO2 26.8, VBG O2 Saturation 60.3, VBG Base Excess 0.0, VBG Lactic Acid 4.6 H 02/05/24 13:47: WBC 15.0 H, RBC 3.93 L, Hgb 11.3 L, Hct 36.1 L, MCV 91.8, MCH 28.6, MCHC 31.2 L, RDW 17.8 H, Plt Count 238, MPV 8.3, Neut % (Auto) 90.4 H, Lymph % (Auto) 4.1 L, [place] % (Auto) 5.3, Eos % (Auto) 0.1, Baso % (Auto) 0.1, Neut # (Auto) 13.6 H, Lymph # (Auto) 0.6 L, [place] # (Auto) 0.8, Eos # (Auto) 0.0, Baso # (Auto) 0.0, Total Counted 100, Neutrophils % (Manual) 91 H, Lymphocytes % (Manual) 7 L, Monocytes % (Manual) 2, Platelet Estimate Normal, RBC Morphology Normal, Sodium 140, Potassium 4.2, Chloride 101, Carbon Dioxide 28, Anion Gap 15.2 H, BUN 30 H, Creatinine 2.60 H, Estimated Creat Clear 46, Estimated GFR 24 L, Est GFR ( Amer) 29 L, Glucose 247 H, Calcium 8.6, Magnesium 2.2, Total Bilirubin 1.0, AST 30, ALT 30, Alkaline Phosphatase 53, Troponin I 0.04 H, Total Protein 7.5, Albumin 3.5, Globulin 4.0 H, Albumin/Globulin Ratio 0.9 L, Lipase 38 02/05/24 14:05: Urine Color Yellow, Urine Appearance Turbid, Urine pH 6.0, Ur Specific [place] 1.025, Urine Protein 2+ A, Urine Glucose (UA) Negative, Urine Ketones Negative, Urine Blood 3+ A, Urine Nitrate Negative, Urine Bilirubin Negative, Urine Urobilinogen 0.2, Ur Leukocyte Esterase 2+ A, Urine RBC Occasional, Urine WBC Tntc, Ur Squamous Epith Cells Occasional, Urine Bacteria Trace, Urine Opiates Screen Negative, Urine Methadone Screen Negative, Ur Barbituates Screen Negative, Ur Phencyclidine Scrn Negative, Ur Amphetamines Screen Negative, U Benzodiazepines Scrn Negative, Urine Cocaine Screen Negative, U Marijuana (THC) Screen Negative 02/05/24 14:06: Blood Type A Positive, Antibody Screen Negative Orders (Tests/Meds): ED MEDICATIONS Discontinued Medications Generic Name Dose Route Start Last Admin Trade Name Freq PRN Reason Stop Dose Admin Sodium Chloride 2,330 mls @ 1,165 mls/hr 02/05/24 14:09 02/05/24 14:47 Sod Chlor 0.9% 1000ml Bag 30 ml/kg infuse over 2 hr (2330 ml) 02/05/24 16:08 1,165 mls/hr IV Administration .Q2H ONE Sodium Chloride 4,080 mls @ 2,040 mls/hr 02/05/24 14:11 02/05/24 14:44 Sod Chlor 0.9% 1000ml Bag 30 ml/kg infuse over 2 hr (4080 ml) 02/05/24 16:10 Not Given IV .Q2H ONE Protocol Piperacillin Sod/Tazobactam 100 mls @ 200 mls/hr 02/05/24 14:11 02/05/24 14:58 Sod 4.5 gm/ Sodium Chloride IV 02/05/24 14:40 200 mls/hr ONCE ONE Administration Vancomycin HCl 2,500 mg/ 250 mls @ 125 mls/hr 02/05/24 14:30 02/05/24 14:47 Sodium Chloride IV 02/05/24 16:29 125 mls/hr ONCE ONE Administration Iopamidol 160 ml 02/05/24 15:12 02/05/24 15:23 Iopamidol-370 (76%);100ml Bottle IV 02/05/24 15:13 160 ml ONCE ONE Administration Miscellaneous 1 each 02/05/24 14:15 Vancomycin Consult Request NOTAPPLIC 03/06/24 14:14 CONSULT PHARMACY [facility] Sodium Chloride 100 ml 02/05/24 15:12 02/05/24 15:23 0.9 % Sodium Chloride 50 Ml Vial IV 02/05/24 15:13 100 ml ONCE ONE Administration Sodium Chloride 10 ml 02/05/24 15:12 02/05/24 15:23 Sodium Chloride 0.9% 10ml Syr (Rad Only) IV 02/05/24 15:13 10 ml ONCE ONE Administration ORDERS Category Date Time Status Type and Screen Stat BBK 02/05/24 14:[address] abdomen pelvis w con Stat Cat Scan 02/05/24 13:[address] angio chest - dissection Stat Cat Scan 02/05/24 13:[address] angio head Stat Cat Scan 02/05/24 13:[address] angio neck Stat Cat Scan 02/05/24 13:[address] head/brain wo con Stat Cat Scan 02/05/24 13:39 Taken XR chest portable Stat Exams 02/05/24 13:38 Taken Complete Blood Count Auto Diff Stat Lab 02/05/24 13:47 Completed Comprehensive Metabolic Panel Stat Lab 02/05/24 13:47 Completed Drug Screen,Urine Stat Lab 02/05/24 14:05 Completed Full Resp Panel w/COVID ([facility]) Routine Lab 02/05/24 15:35 Received HIV (1&2) Antibody Rapid Stat Lab 02/05/24 13:47 Received Hep C Ab with Reflex to RNA Stat Lab 02/05/24 13:47 Received Lipase Stat Lab 02/05/24 13:47 Completed Magnesium Stat Lab 02/05/24 13:47 Completed Troponin I Q3H Lab 02/05/24 16:45 Ordered Troponin I Q3H Lab 02/05/24 19:45 Ordered Troponin I Stat Lab 02/05/24 13:47 Completed Urinalysis and Microscopic Stat Lab 02/05/24 14:05 Completed Blood Culture Stat Micro 02/05/24 14:05 Received Urine Culture Stat Micro 02/05/24 14:05 Received Venous Blood Gas Stat RT 02/05/24 13:38 Completed Tissue Perfus/Sepsis Re-Eval Sepsis Re-Evaluation Performed: Yes Date Performed: 02/05/24 Time Performed: 16:50 Medical Decision Narrative: Patient with history and exam per above presenting for evaluation of altered mental status Diagnoses considered include sepsis, CVA, large vessel occlusion, ACS, pneumonia, UTI ED workup and treatment included: As above Labs were independently interpreted by me, significant for leukocytosis, anemia, VBG with elevated lactate of 4.6, patient being given IV fluids per sepsis protocol. No noted hypercarbia. Mildly elevated anion gap, KARINA. Elevated troponin with repeat pending. Urinalysis with UTI, noted hematuria. UDS negative. Blood cultures pending Radiographic imaging pending at time of signout My clinical impression at this time is most consistent with altered mental status, UTI, elevated troponin. Remainder of workup pending at time of signout to Dr. Otero. Patient care transferred at time of signout. Reassessment this is Dr. Otero I took over from Dr. Mattson around [address] scans performed which I personally interpreted which largely are unremarkable from an emergency standpoint however on the abdomen pelvis on my personal interpretation there is a large 12 mm mid ureteral stone with significant hydronephrosis and hydroureter with edema around the kidney itself. This in the setting of a urinary tract infection as well as sepsis with endorgan damage/encephalopathy is all consistent with severe sepsis. Patient was given IV fluids initiated with Vanco and Zosyn by Dr. Mattson. I subsequently spoke with Dr. Liu and Dr. Vargas in the transfer center emergency of [place] and they accepted the patient for urgent surgical intervention. Critical Care <Micheal Mattson DO - Last Filed: 02/05/24 15:56> Critical Care Time Critical Care Time: Yes Attestation: On 02/05/24, the high probability of a clinically significant, sudden or life threatening deterioration of the following system(s) required my full and direct attention, intervention and personal management. The time I documented below is in addition to time spent performing reported procedures but includes the following listed in this critical care notation. Total Time Total Critical Care Time: 35 <Salima Otero MD - Last Filed: 02/05/24 16:50> Total Time Total Critical Care Time: 65
--- NOTE | 2024-02-05 15:18 | [facility].ITSTN ---
GFR completion/results were overrode for the use of contrast media by the Physician on a risk vs. benefit situation with this patient.
[2024-02-05] MEDS: SODIUM CHLORIDE 0.9% 10ML SYR (RAD ONLY) 10 ML IV (15:23)
[2024-02-05] MEDS: IOPAMIDOL-370 (76%);100ML BOTTLE 160 ML IV (15:23)
[2024-02-05] MEDS: 0.9 % SODIUM CHLORIDE 50 ML VIAL 100 ML IV (15:23)
[2024-02-05 15:42] LABS: Adenovirus,PCR Not Detected (NotDetected); Bordetella Pertussis Not Detected (NotDetected); Chlamydophila Pneumoniae, PCR Not Detected (NotDetected); Coronavirus 19, PCR Not Detected (NotDetected); Coronavirus 229E Not Detected (NotDetected); Coronavirus NL63 Not Detected (NotDetected); Coronavirus OC43 Not Detected (NotDetected); Coronovirus HKU1,PCR Not Detected (NotDetected); Human Metapneumovirus Not Detected (NotDetected); Influenza A, PCR Not Detected (NotDetected); Influenza AH1, 2009 Not Detected (NotDetected); Influenza AH1, PCR Not Detected (NotDetected); Influenza AH3,PCR Not Detected (NotDetected); Influenza B, PCR Not Detected (NotDetected); Mycoplasma Pneumoniae, PCR Not Detected (NotDetected); Parainfluenza 1, PCR Not Detected (NotDetected); Parainfluenza 2, PCR Not Detected (NotDetected); Parainfluenza 3, PCR Not Detected (NotDetected); Parainfluenza 4, PCR Not Detected (NotDetected); Respiratory Syncytial Virus Not Detected (NotDetected); Rhinovirus/Enterovirus Not Detected (NotDetected)
--- NOTE | 2024-02-05 16:36 | PC.NURSE ---
Leah called [facility] 's it will be doctor matthew to call back once they recived images
--- NOTE | 2024-02-05 16:51 | PC.NURSE ---
SPOKE WITH HERNANDO COLBERT-GUARDIRADHA. PERMISSION GIVEN FOR TRANSFER TO FOR FURTHER CARE
--- NOTE | 2024-02-05 17:03 | PC.NURSE ---
EMS called for a transfer to [facility]
[2024-02-05 18:01] LABS: Reflex Lactic Add Lactic Reflex
[2024-02-05 18:32] LABS: HIV (1&2) Antibody Rapid NONREACTIVE (NONREACTIVE)
[2024-02-06 09:38] LABS: HCV Ab Non Reactive (Non Reactive)
--- NOTE | 2024-02-07 07:28 | PC.NURSE ---
faxed prelim to [facility] where pt was transferred
== END 2024-02-05 18:15 | disposition admitted as inpatient to this hospital (09) ==
PROVIDERS: Emergency Provider Student in an Organized Health Care Education/Training Program
DX: N13.2 Hydronephrosis with renal and ureteral calculous obstruction (principal); N17.9 Acute kidney failure, unspecified; A41.9 Sepsis, unspecified organism; N39.0 Urinary tract infection, site not specified; G93.40 Encephalopathy, unspecified; R41.82 Altered mental status, unspecified; R55 Syncope and collapse
CPT/HCPCS: 70450; 70496; 70498; 71045; 71275; 74177; 80053; 80307; 81001; 82803; 83690; 83735; 84484; 85007; 85025; 85027; 86803; 86850; 87040; 87086; 87088; 87186; 87265; 87389; 87486; 87581; 87632; 87635; 93005; 96361; 96365; 96366; 99291; J2543; J3370; J7030; Q9967

== ENCOUNTER 2024-02-27 10:30 | Emergency (ER) | payer MEDICARE, MEDICAID, SELFPAY ==
[2024-02-27] VITALS (11 sets, daily range): BP systolic 111–167; BP diastolic 57–80; PULSE 76–132; RESP 16–36; TEMP 37.2–37.8; O2SAT 88–96; BMI 38.0
--- NOTE | 2024-02-27 10:27 | ECG_ITS ---
APPROVED REPORT Exam: Resting ECG HR:120 bpm ECG Measurements Heart Rate 120 AXES QRSd 151 QRS 132 QT 364 T 6 QTc 436 Conclusion ATRIAL FLUTTER/TACHYCARDIA WITH RAPID VENTRICULAR RESPONSE INDETERMINATE AXIS RIGHT BUNDLE BRANCH BLOCK [120+ ms QRS DURATION, UPRIGHT V1, 40+ ms S IN I/aVL/V4/V5/V6] No STEMI Electronically signed by : MARY LOWRY, 02/27/2024 15:35:07
--- NOTE | 2024-02-27 10:39 | PC.NURSE ---
Leah Jones did a finger stick upon arrival and the Blood Glucose was 257
--- OUTSIDE RECORDS SUMMARY | 2024-02-27 10:41 | XMS_ITS | Encounter Summary ---
Author Organization Healthcare Address [address] [place] [address] Care Team Providers Care Drone Pilot Name Role Phone Jeb Gonzalez MD Primary Care Provider [phone] Encounter Details Date Type Department Care Team (Latest Contact Info) Description 02/22/2024 Travel Social History Tobacco Use Types Packs/Day Years Used Date Smoking Tobacco: Former Humiliation, Afraid, Rape, and Kick questionnair e Answer Date Recorded Within the last year, have y ou been afraid of your partner or ex-partner? No 02/07/2024 Within the last year, have y ou been humiliated or emotionally abused in other ways by your partner or ex-partner? No Within the last year, have y ou been kicked, hit, slapped, or otherwise physically hurt by your partner or ex-partner? No 02/07/2024 Within the last year, have y ou been raped or forced to have any kind of sexual activity by your partner or ex-partner? No 02/07/2024 PHQ-2 Answer Date Recorded Patient Health Questionnaire-2 Score 2 10/06/2020 Hunger Vital Sign Answer Date Recorded Within the past 12 months, y ou worried that your food would run out before you got the money to buy more. Never true 02/07/20 24 Within the past 12 months, t he food you bought just didn't last and you didn't have money to get more. Never true 02/07/2024 PRAPARE - Transportation Answer Date Re corded In the past 12 months, has l ack of transportation kept you from medical appointments or from getting medications? No 01/10 In the past 12 months, has l ack of transportation kept you from meetings, work, or from getting things needed for daily living? No 02/07/2024 Housing Stability Vital Sign Answer Samy e Recorded In the last 12 months, was t here a time when you were not able to pay the mortgage or rent on time? No 02/07/2024 In the last 12 months, how many places have you lived? 1 02/07/2024 In the last 12 months, was t here a time when you did not have a steady place to sleep or slept in a [facility] (including now)? No 02/07/2024 Utilities Answer Date Recorded In the past 12 months has th e electric, gas, oil, or water company threatened to shut off services in your home? No 02/07/2024 Sex and Gender Information Value Date Recorded Sex Assigned at Not on file Legal Sex Male 6:57 PM EDT Gender Identity Not on file Sexual Orientation Not on file documented as of this encounter Plan of Treatment Upcoming Encounters Date Type Department Care Team ([facility] Contact Info) Description 02/28/2024 10:40 AM EST Hospital Encounter [facility] [address] [place] [phone] John Vargas MD [address] [phone] 02/28/2024 10:40 AM EST Anesthesia Event [facility] [address] [place] [phone] Fransico Mcgarry MD [address] [place] [address] 02/28/2024 10:40 AM EST - 02/28/2024 1:05 PM EST Surgery [facility] [address] [place] [phone] John Vargas MD [address] [phone] URETEROSCOPY, WITH LASER LITHOTRIPSY [[id number] (CPT??)] 05/16/2024 3:45 PM EST Office Visit Medical Office Building Urology [address], [address] [place] [address] Mark Moore MD [address] [facility] [address] [place] [phone] Scheduled Procedures Name Priority Associated Diagnoses Date/Ti me URETEROSCOPY, WITH LASER LITHOTRIPSY Ureteral stone 02/28/2024 10:40 AM EST documented as of this encounter Visit Diagnoses Not on filedocumented in this encounter Additional Health Concerns Infection Onset 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
--- OUTSIDE RECORDS SUMMARY | 2024-02-27 10:41 | XMS_ITS | Encounter Summary ---
Author Organization Healthcare Address [address] [place] [address] Care Team Providers Care Frameman Name Role Phone Jeb Gonzalez MD Primary Care Provider + [phone] Reason for Visit * Reason Comments Abdominal Pain * Auth/Cert (Routine) Specialty Diagnoses / Procedures Referred By Roni cosme Referred To Contact Diagnoses Hydronephrosis with urinary obstruction due to ureteral calculus sepsis, UTI, 12 mm obstructing stone Michelle Vargas MD [address] [address] Phone: tel: fax: [facility] Emergency Department [address] [place] [address] Phone: tel: Referral ID Status Reason Start Date Expiration Date Visits Re quested Visits Authorized [id number] 1 1 Encounter Details Date Type Department Care Team (Late st Contact Info) Description 02/05/2024 7:36 PM EDT - 02/08/2024 3:32 PM EDT Hospital Encounter [facility] 9 T2 UNI [address] [place] [address] Selina Brown MD [address] [place] [address] Kenneth Ruvalcaba MD [address] [place] [address] Michelle Vargas MD [address] [address] Hydronephrosis with urinary obstruction due to ureteral calculus (Primary Dx) Discharge Disposition: Long-Term Facility Social History Tobacco Use Types Packs/Day Years [...] place to sleep or slept in a alf (including now)? No 02/07/2024 Utilities Answer Date [...] on file documented as of this encounter Last Filed Vital Signs Vital Sign Reading Time Taken Comments Blood Pressure 158/70 02/08/2024 1:08 PM EDT Pulse 149 02/08/2024 1:08 PM EDT Temperature 36.4 ??C (97.6 ??F) 02/08/2024 1:08 PM ED T Respiratory Rate 22 02/07/2024 11:24 PM EDT Oxygen Saturation 91% 02/08/2024 1:08 PM EDT Inhaled Oxygen Concentration - - Weight 121 kg (267 lb 3.2 oz) 02/07/2024 11:37 A M EDT Height 182.9 cm (6') 02/07/2024 11:00 AM EDT Body Mass Index 36.24 02/07/2024 11:00 AM EDT documented in this encounter Discharge Instructions * Discharge Instructions* Micheal Delgado MD - 02/08/2024 6:59 AM EDT Medications: - You have been prescribed a 7 day course of Cefadroxil for your urinary tract infection. - You should take 500mg Tylenol every 6 hours for mild - moderate pain. You may take up to 1000mg every 6 hours but do not take more than 4000mg in a day. - You may resume your previous medications unless otherwise instructed. Nutrition: - You may resume your normal diet as tolerated, focusing on liquids to keep yourself hydrated. Stent: - You have a stent in your ureter. You will have your stent removed with us at your follow-up. Potential Issues: - It is normal to have some blood in the urine after the procedure and while you have a stent in place. Drink plenty of water and it should clear up. Contact the office if you are passing large clotsor unable to urinate. - It is normal to have some pain and soreness. - Call the office if you have a fever greater than 101 F - Call the office if you have severe abdominal discomfort, nausea and vomiting, or feeling unwell Follow Up: - You will be contacted by our office to schedule for definitive stone treatment. Questions or Concerns and Appointments (physicians work at both clinics so confirm your location ahead of your appointment) [facility] Urology Department Clinic at [facility] [address], [address], [address] [place] [address] Clinic After Hours [facility] Urology Clinic [address] [place] [address] Clinic After Hours [facility] Multidisciplinary Urology Clinic [address] [place] [address] Clinic documented in this encounter Medications at Time of Discharge apixaban (Eliquis) 5 MG tablet Take 1 tablet (5 mg) by mouth 2 (two) times a day. atorvastatin (Lipitor) 10 MG tablet Take 1 tablet (10 mg) by mouth every other day. Nightly bumetanide (Bumex) 1 MG tablet Take 1 tablet (1 mg) by mouth 2 (two) times a day. carvedilol (Coreg) 25 MG tablet Take 1 tablet (25 mg) by mouth 2 (two) times a day. 60 tablet 11/09/2023 chlorhexidine (Hibiclens) 4 % external solution Apply 1 Application topically every 12 (twelve) hours. Before Triamcinolone application to bilateral lower legs docusate sodium (Colace) 250 MG capsule Take 1 capsule (250 mg) by mouth 1 (one) time each day. donepezil (Aricept) 10 MG tablet Take 1 tablet (10 mg) by mouth every night. 09/22/2020 doxazosin (Cardura) 1 MG tablet Take 1 tablet (1 mg) by mouth every night. 10/03/2020 guaiFENesin (Robitussin) 100 MG/5ML solution Take 15 mL (300 mg) by mouth every 6 (six) hours if needed for cough. losartan (Cozaar) 50 MG tablet Take 1 tablet (50 mg) by mouth 1 (one) time each day. menthol-zinc oxide (Calmoseptine) 0.44-20.6 % ointment ointment Apply 1 Application topically 2 (two) times a day. Buttocks and Groin miconazole (Micotin) 2 % powder Apply 1 Application topically 2 (two) times a day. Breast and Groin ondansetron (Zofran) 4 MG tablet Take 1 tablet (4 mg) by mouth every 6 (six) hours if needed for nausea or vomiting. OXcarbazepine (Trileptal) 300 MG tablet Take 1 tablet (300 mg) by mouth 2 (two) times a day. 09/05/2020 pantoprazole (ProtoNix) 40 MG EC tablet Take 1 tablet (40 mg) by mouth 1 (one) time each day. 09/23/2020 polyethylene glycol (Miralax) 17 GM/SCOOP powder Take 17 g by mouth Once a day, every 24 hours if needed. Povidone-Iodine (Betadine) 5 % solution Apply topically 2 (two) times a day. To right great toe risperiDONE (RisperDAL) 1 MG tablet Take 1 tablet (1 mg) by mouth 1 (one) time each day. 09/05/2020 risperiDONE (RisperDAL) 2 MG tablet Take 1 tablet (2 mg) by mouth every night. senna (Senokot) 8.6 MG tablet Take 1 tablet (8.6 mg) by mouth Once a day, every 24 hours if needed for constipation. spironolactone (Aldactone) 25 MG tablet Take 1 tablet (25 mg) by mouth 2 (two) times a day. triamcinolone (Kenalog) 0.1 % lotion Apply 1 Application topically every 12 (twelve) hours if needed. Bilateral Lower legs for warm/red irritation after Hibiclens solution acetaminophen (Tylenol) 500 MG tablet Take 2 tablets (1,000 mg) by mouth every 6 (six) hours for 14 days. 100 tablet 02/08/2024 cefadroxil (Duricef) 500 MG capsule Take 1 capsule (500 mg) by mouth 2 (two) times a day for 5 days. 10 capsule 02/08/2024 documented as of this encounter Miscellaneous Notes * Progress Notes - Vinita Cramer RN - 02/08/2024 9:22 AM EDT Case Management Discharge Note Izabel Goncalves 78 y.o. male CSN: [id number] Admission: 02/05/2024 7:36 PM Primary Problem: Hydronephrosis with urinary obstruction due to ureteral calculus Primary Dynamiter: Primary Caregiver: (facility staff) Assistance Available at Discharge: Availability of Care Givers (#Hours): 24 hours Family/Dynamiter(s) Willingness Assessed to care for patient at home: Yes Family/Dynamiter(s) Readiness Assessed to care for patient at home: Yes Housing Circumstances-Z Codes: Housing Circumstances (select all that apply): Low Income (101-300% Federal Poverty Guidlines) - Z596 Patient Referred to Financial or Community Resources: Discharge Facility/Level of Care Needs: Discharge Facility/Level of Care Needs: -Instrument Processing Tech care Patient's Choice of Community Agency(s): Patient/Family Anticipated Services at Transition: Patient/Family Anticipated Services at Transition: case resource manager DME/Equipment Needed after Discharge: Equipment Currently Used at Home: none Equipment Needed After Discharge: none Readmission Within the Last 30 Days: Readmission Within the Last 30 Days: no previous admission in last 30 days Medicare Documentation: Follow-up: Fantasma Otero MD [address] [facility] [address] [facility] Phone; [phone] X [phone] Follow up Pt is a resident. Discharge Transportation: Transportation Anticipated: medical transport Transportation Home at Discharge: Medical Transport Has discharge transport been arranged?: Yes What day is the transport expected?: 02/08/24 What time is the transport expected?: 0330 Follow Up Transport: Transportation Needed to Follow up Appoinments: Medical Transport Additional Comments: Based on pt's reported household income he meets 300% FPG. [employer] stretcher transport has been cancelled for today at 3:30, orange picker at bedside. Discharge summary sent to facility via fax # [phone]. Pt is a resident at [facility], number for report [phone] given to suzie. POC reviewed with primary team. Refer to primary team's discharge note for details. Medically readyto discharge today. Patient agrees to dc to facility today and agrees with above DC plan. In??s PERICO Ramirez, pre press manager * Discharge Summary - Micheal Delgado MD - 02/08/2024 7:09 AM EDT Images from the original note were not included. Hospitalization Admit Date/Time: 02/05/2024 7:36 PM Admitting Attending: Michelle Vargas Discharge Date: 02/08/24 Discharge Attending Physician: Michelle Vargas MD PCP name and Address: Jeb Gonzalez MD [address] [place] [address] Referring provider name and address: Fantasma Otero MD [address] [place] [id number] Chief Concern, Brief History of Present Illness, and Hospital Course Izabel Goncalves is a 78 y.o. male has a past medical history of dementia, hypertension, AFib, heart failure, MDD, schizophrenia, and pancreatic NET who presented to [facility] with sepsis and altered mental status due to a 12 mm right sided obstructing ureteral stone with upstream hydronephrosis and urinalysis concerning for infection. They were taken to the operating room on 02/06/2024 for urgent cystoscopy with right retrograde pyelogram and right ureteral stent placement without strings. The patient tolerated the procedure well and was subsequently extubated and transferred to the PACU for recovery. The postoperative course was uncomplicated and after recovery, the patient was transferred to the floor. Pain was initially controlled with IV pain medication and was later transitioned to oral pain medication, and diet was advanced as tolerated. The patient's hospital course was uncomplicated and it was felt that the patient had reached maximal benefit from hospitalization. On 02/08/24 were deemed appropriate for discharge to his home facility. On day of discharge, the patient was afebrile and hemodynamically stable, tolerating a regular diet, the patient's pain was controlled on oral medications, voiding appropriately, passing flatus/BM, and tolerating oral intake. The patient was discharged on 02/08/24 to his home facility and will return for definitive stone treatment with Michelle Saxena MD in 2 weeks. Surgeries and Procedures Procedures performed in this encounter Procedures Case Request Operating Room: CYSTOSCOPY, WITH URETERAL STENT INSERTION CYSTOSCOPY, WITH URETERAL STENT INSERTION (Right) Medication List .. acetaminophen 500 MG tablet Commonly known as: Tylenol Take 2 tablets (1,000 mg) by mouth every 6 (six) hours for 14 days. apixaban 5 MG tablet Commonly known as: Eliquis Take 1 tablet (5 mg) by mouth 2 (two) times a day. atorvastatin 10 MG tablet Commonly known as: Lipitor Take 1 tablet (10 mg) by mouth every other day. Nightly Betadine 5 % solution Generic drug: Povidone-Iodine Apply topically 2 (two) times a day. To right great toe bumetanide 1 MG tablet Commonly known as: Bumex Take 1 tablet (1 mg) by mouth 2 (two) times a day. carvedilol 25 MG tablet Commonly known as: Coreg Take 1 tablet (25 mg) by mouth 2 (two) times a day. cefadroxil 500 MG capsule Commonly known as: Duricef Take 1 capsule (500 mg) by mouth 2 (two) times a day for 5 days. docusate sodium 250 MG capsule Commonly known as: Colace Take 1 capsule (250 mg) by mouth 1 (one) time each day. donepezil 10 MG tablet Commonly known as: Aricept Take 1 tablet (10 mg) by mouth every night. doxazosin 1 MG tablet Commonly known as: Cardura Take 1 tablet (1 mg) by mouth every night. guaiFENesin 100 MG/5ML solution Commonly known as: Robitussin Take 15 mL (300 mg) by mouth every 6 (six) hours if needed for cough. Hibiclens 4 % external solution Generic drug: chlorhexidine Apply 1 Application topically every 12 (twelve) hours. Before Triamcinolone application to bilateral lower legs losartan 50 MG tablet Commonly known as: Cozaar Take 1 tablet (50 mg) by mouth 1 (one) time each day. menthol-zinc oxide 0.44-20.6 % ointment ointment Commonly known as: Calmoseptine Apply 1 Application topically 2 (two) times a day. Buttocks and Groin miconazole 2 % powder Commonly known as: Micotin Apply 1 Application topically 2 (two) times a day. Breast and Groin ondansetron 4 MG tablet Commonly known as: Zofran Take 1 tablet (4 mg) by mouth every 6 (six) hours if needed for nausea or vomiting. OXcarbazepine 300 MG tablet Commonly known as: Trileptal Take 1 tablet (300 mg) by mouth 2 (two) times a day. pantoprazole 40 MG EC tablet Commonly known as: Protonix Take 1 tablet (40 mg) by mouth 1 (one) time each day. polyethylene glycol 17 GM/SCOOP powder Commonly known as: Miralax Take 17 g by mouth Once a day, every 24 hours if needed. * risperiDONE 2 MG tablet Commonly known as: RisperDAL Take 1 tablet (2 mg) by mouth every night. * risperiDONE 1 MG tablet Commonly known as: RisperDAL Take 1 tablet (1 mg) by mouth 1 (one) time each day. senna 8.6 MG tablet Commonly known as: Senokot Take 1 tablet (8.6 mg) by mouth Once a day, every 24 hours if needed for constipation. spironolactone 25 MG tablet Commonly known as: Aldactone Take 1 tablet (25 mg) by mouth 2 (two) times a day. triamcinolone 0.1 % lotion Commonly known as: Kenalog Apply 1 Application topically every 12 (twelve) hours if needed. Bilateral Lower legs for warm/red irritation after Hibiclens solution * This list has 2 medication(s) that are the same as other medications prescribed for you. Read thedirections carefully, and ask your doctor or other care provider to review them with you. Where to Get Your Medications These medications were sent to [facility] - [place], [place] - [address] , [facility] [id number] acetaminophen 500 MG tablet cefadroxil 500 MG capsule Discharge Diagnosis Medical Problems Active and Resolved Hospital Problems Hospital * (Principal) RESOLVED: Hydronephrosis with urinary obstruction due to ureteral calculus Post Discharge Instructions Medications: - You have been prescribed a 7 day course of Cefadroxil for your urinary tract infection. - You should take 500mg Tylenol every 6 hours for mild - moderate pain. You may take up to 1000mg every 6 hours but do not take more than 4000mg in a day. - You may resume your previous medications unless otherwise instructed. Nutrition: - You may resume your normal diet as tolerated, focusing on liquids to keep yourself hydrated. Stent: - You have a stent in your ureter. You will have your stent removed with us at your follow-up. Potential Issues: - It is normal to have some blood in the urine after the procedure and while you have a stent in place. Drink plenty of water and it should clear up. Contact the office if you are passing large clotsor unable to urinate. - It is normal to have some pain and soreness. - Call the office if you have a fever greater than 101 F - Call the office if you have severe abdominal discomfort, nausea and vomiting, or feeling unwell Follow Up: - You will be contacted by our office to schedule for definitive stone treatment. Questions or Concerns and Appointments (physicians work at both clinics so confirm your location ahead of your appointment) [facility] Urology Department Clinic at [facility] [address] [facility], 2nd Floor, [facility], [address] [place] [address] Clinic After Hours [facility] Urology Clinic [address] [facility] [place] [address] Clinic After Hours [facility] Multidisciplinary Urology Clinic [address] [place] [address] Clinic Outpatient Follow-Up Future Appointments Date Time Provider Department Center 05/16/2024 3:45 PM Mark Moore MD [facility] Test Results Pending At Discharge Pending Labs Order Current Status Urine Culture Preliminary result Pertinent Physical Exam At Time of Discharge Physical Exam Constitutional: Appearance: Normal appearance. He is obese. HENT: Head: Normocephalic and atraumatic. Eyes: Extraocular Movements: Extraocular movements intact. Cardiovascular: Rate and Rhythm: Normal rate. Pulmonary: Effort: Pulmonary effort is normal. Skin: General: Skin is warm and dry. Neurological: Mental Status: He is alert. Mental status is at baseline. Psychiatric: Behavior: Behavior normal. Discharge Disposition/Condition Disposition: Home Condition: Stable (s/sx potential problems absent or manageable) I spent >30 minutes of patient care and instruction time in preparation for this discharge. Cosigned by Michelle Vargas MD at 02/08/2024 5:22 PM EDT * Hospital Course - Micheal Delgado MD - 02/08/2024 6:58 AM EDT Izabel Goncalves is a 78 y.o. male has a past medical history of dementia, hypertension, AFib, heart failure, MDD, schizophrenia, and pancreatic NET who presented to [facility] with sepsis and altered mental status due to a 12 mm right sided obstructing ureteral stone with upstream hydronephrosis and urinalysis concerning for infection. They were taken to the operating room on 02/06/2024 for urgent cystoscopy with right retrograde pyelogram and right ureteral stent placement without strings. The patient tolerated the procedure well and was subsequently extubated and transferred to the PACU for recovery. The postoperative course was uncomplicated and after recovery, the patient was transferred to the floor. Pain was initially controlled with IV pain medication and was later transitioned to oral pain medication, and diet was advanced as tolerated. The patient's hospital course was uncomplicated and it was felt that the patient had reached maximal benefit from hospitalization. On 02/08/24 were deemed appropriate for discharge to his home facility. On day of discharge, the patient was afebrile and hemodynamically stable, tolerating a regular diet, the patient's pain was controlled on oral medications, voiding appropriately, passing flatus/BM, and tolerating oral intake. The patient was discharged on 02/08/24 to his home facility and will return for definitive stone treatment with Michelle Saxena MD in 2 weeks. * Care Plan - Abbey Alvarenga - 02/07/2024 10:00 PM EDT Problem: Adult Inpatient Plan of Care Goal: Plan of Care Review Outcome: Ongoing, Progressing Flowsheets (Taken 02/07/2024 2200) Progress: improving Plan of Care Reviewed With: patient Goal: Patient-Specific Goal (Individualized) Outcome: Ongoing, Progressing Goal: Absence of Hospital-Acquired Illness or Injury Outcome: Ongoing, Progressing Goal: Optimal Comfort and Wellbeing Outcome: Ongoing, Progressing Goal: Readiness for Transition of Care Outcome: Ongoing, Progressing Problem: Infection Goal: Absence of Infection Signs and Symptoms Outcome: Ongoing, Progressing * Query Clarification Note - Michelle Vargas MD - 02/07/2024 7:42 PM EDT Acute kidney injury - likely from ureteral obstruction. * Care Plan - Hyacinth Laurent RN - 02/07/2024 4:07 PM EDT Problem: Adult Inpatient Plan of Care Goal: Plan of Care Review Outcome: Ongoing, Progressing Goal: Patient-Specific Goal (Individualized) Outcome: Ongoing, Progressing Goal: Absence of Hospital-Acquired Illness or Injury Outcome: Ongoing, Progressing Goal: Optimal Comfort and Wellbeing Outcome: Ongoing, Progressing Goal: Readiness for Transition of Care Outcome: Ongoing, Progressing Problem: Infection Goal: Absence of Infection Signs and Symptoms Outcome: Ongoing, Progressing * Consults - Lilibeth Erwin RD - 02/07/2024 11:32 AM EDT Adult Nutrition Evaluation Note Izabel Goncalves 78 y.o. male CSN: [id number] Room/Bed 239/239A Nutrition evaluation type: assessment Reason for evaluation: nurse consult (MST=2) Hospital course: 78 y o M presenting with 12 mm right sided obstructing stone with upstream hydronephrosis and UA concerning for infection. Taken to OR 02/05 for cystoscopy with right retrograde pyelogram, & right ureteral stent placement without strings. Past medical/ surgical history: Past Medical History: Diagnosis Date Cognitive communication deficit Cognitive communication deficit Essential (primary) hypertension Hypertension Heart failure, unspecified (CMS/HCC) Heart failure Major depressive disorder, single episode, unspecified Depression Mental disorder, not otherwise specified Mental disorder Neuroendocrine tumor Pancreatic mass Paranoid schizophrenia (CMS/HCC) Chronic paranoid schizophrenia * Per chart: dementia, A-Fib Past Surgical History: Procedure Laterality Date PANCREAS SURGERY N/A Pancreas surgery from [facility] Social history: Social History Tobacco Use Smoking status: Former Additional comments: 02/06: Pt nurse reported height of 6' and re-weighed pt today at 267#; admit wt felt to be erroneous. Vitals and Basic Assessment: BP: (!) 142/79 Temp: 36.3 ??C (97.4 ??F) Oxygen Therapy: Supplemental oxygen O2 Delivery Method: Nasal cannula Nancy Coma Scale Score: 11 Tk Scale Score: 13 Most Recent BM Date: 02/07/24 Edema: Right lower extremity Allergies: NKA Medications: acetaminophen, 1,000 mg, Oral, q6h OMKAR apixaban, 5 mg, Oral, BID bumetanide, 1 mg, Oral, BID carvedilol, 25 mg, Oral, BID cefTRIAXone, 1 g, Intravenous, q24h docusate sodium, 250 mg, Oral, Daily donepezil, 10 mg, Oral, Nightly doxazosin, 1 mg, Oral, Nightly OXcarbazepine, 300 mg, Oral, BID pantoprazole, 40 mg, Intravenous, Daily Povidone-Iodine, 1 Swab, Nasal, Daily risperiDONE, 1 mg, Oral, Daily risperiDONE, 2 mg, Oral, Nightly senna, 1 tablet, Oral, Nightly sodium chloride, 10 mL, Intravenous, q12h spironolactone, 25 mg, Oral, BID lactated Ringer's, 42 mL/hr, Last Rate: 42 mL/hr (02/06/24 4429) PRN medications: ondansetron, [COMPLETED] Insert peripheral IV AND [COMPLETED] Saline lock IV AND sodium chloride AND sodium chloride Meds were reviewed: Yes Labs: Results from last 7 days Lab Units 02/07/24 0555 02/06/2452602/05/242012 WBC 10*3/uL 5.16 10.60* 14.01* HEMOGLOBIN g/dL 8.8* 9.5* 9.9* HEMATOCRIT % 29.5* 31.5* 33.2* PLATELETS 10*3/uL 170 182 185 Results from last 7 days Lab Units 02/07/2455 02/06/2452602/05/242012 SODIUM mmol/L 145 143 137 POTASSIUM mmol/L 3.9 4.3 4.0 CHLORIDE mmol/L 108* 105 99 CO2 mmol/L 25 24 25 BUN mg/dL 36* 29* 28* CREATININE mg/dL 2.44* 2.32* 2.25* EGFR mL/min/1.73m*2 26.6 28.2 29.3 GLUCOSE mg/dL 126* 173* 203* CALCIUM mg/dL 8.6* 8.2* 8.3* PHOSPHORUS mg/dL -- 3.9 -- -BG elevated - monitor trend -BUN & Creat elevated - monitor trends Magnesium, Plasma Date Value Ref Range Status 02/06/2024 2.1 1.9 - 2.4 mg/dL Final Lab Results Component Value Date ALT 16 02/05/2024 AST 17 02/05/2024 ALKPHOS 52 02/05/2024 BILITOT 0.6 02/05/2024 Lab Results Component Value Date ALBUMIN 2.9 (L) 02/05/2024 -Albumin is a negative acute phase protein, and therefore not a reliable indicator of malnutrition. No results found for: PREALBUMIN No results found for: CRP No results found for: HGBA1C No results found for: CHOL No results found for: HDL No results found for: LDLCALC No results found for: TRIG Anthropometrics: Height: 182.9 cm Weight: 121 kg IBW: 80.9 kg %IBW: 149.6 Adjusted Body Weight: 90.9 kg BMI: 36.2 Wt evaluation: Obese - Class 2 Weight History: 02/07/24 121 kg (267 lb 3.2 oz) Wt Readings from Last 30 Encounters: 02/05/24 171 kg (377 lb 13.9 oz) 11/07/23 124 kg (272 lb 14.9 oz) 10/06/20 131 kg (288 lb 2.3 oz) -Continue to monitor trend for accuracy Estimated Needs: Current Nutrition Intake: Diet: Regular Supplements: none Intake: avg 38% of documented meals since admit 2 days ago Nutrition Support: None at this time Diet Experience & Nutrition History: Diet Education: Will monitor Pertinent Home Medications: Lipitor, Bumex, Colace, Protonix, Miralax, Senokot, Aldactone Nutrition Focused Physical Exam: Physical exam performed on (date): pending Assessment of Malnutrition: Nutrition Problem: Predicted suboptimal energy intake related to current clinical condition as evidenced by 38% avg meal intake. Status of Nutrition Diagnosis: New Nutrition Interventions and Recommendations: -Noted GCS 11; monitor appropriateness of po intake -Obtain CLAY PROCESSING FACTORY WORKER evaluation if indicated -Therapeutically recommend continuing unrestricted diet in effort to promote po intake -If po intake inadequate, supplement with Boost Plus -Monitor glycemic control -Bowel regimen per team Nutrition Monitoring and Goals: -Monitor tolerance and adequacy of po intake / enteral infusion, wt changes, bowel fxn, labs, skin integrity; and follow up per acuity -Pt will tolerate and consume >/= 75% of most meals -NFPE on follow up Acuity Level: [address], LD * Progress Notes - Vinita Cramer RN - 02/07/2024 11:19 AM EDT Case Management Adult Initial Progress Note Izabel Goncalves 78 y.o. male CSN: [id number] Admission: 02/05/2024 7:36 PM Primary Problem: Hydronephrosis with urinary obstruction due to ureteral calculus Electrolysist reviewed chart and spoke with staff at [facility] to complete this Initial Case Management Assessment. PCP: Jeb Gonzalez MD Emergency Contact: Extended Emergency Contact Information Primary Emergency Contact: Marva Velez Mobile Relation: Legal Guardian Preferred language: Nauruan Cellulose Insulation Helper needed? No Insurance: Primary Visit Coverage Payer Plan Sponsor Code Group Number Group Name MEDICARE MEDICARE A & B Primary Visit Coverage Subscriber Subscriber ID Subscriber Name Subscriber TRACYN Subscriber Address [id number] IZABEL GONCALVES [id number] [facility] [place] [address] Secondary Visit Coverage Payer Plan Sponsor Code Group Number Group Name MEDICAID-[place] MEDICAID TRADITIONAL Secondary Visit Coverage Subscriber Subscriber ID Subscriber Name Subscriber CHIP Subscriber Address [id number] IZABEL GONCALVES [id number] [address] [facility] Patient information: Primary Caregiver: (facility staff) Support System: Immediate family, Other (Comment) (facility staff) Daily Living Activities: Functional Status: Totally dependent Living Arrangements: Mcfp Type of Residence: residential/residential care [address] [facility] Current DME: Income Information: Income Source: Disabled Housing Circumstances-Z Codes: Housing Circumstances (select all that apply): Low Income (101-300% Federal Poverty Guidlines) - Z596 Patient Referred to: Anticipated Discharge Date: 02/08/24 Patient's Discharge Goal: return to facility Assistance Available at Discharge: 31/10 staff Discharge Transport: stretcher transport Follow Up Transport: medical transport Home Health / Home Infusion / Outpatient Dialysis Services: None reported and no preference. Living Will/Advance Directive/Power of Sawyer Helper /Guardian: None reported. Additional Comments: Based on pt's reported household income he meets 300% FPG. [employer] stretcher transport has been cancelled for today and set up for tomorrow at 3:30. Pt is a resident at [facility] [phone]. In??PERICO Thibodeaux, pre press manager Social Determinants of Health Food Insecurity: No Food Insecurity (02/07/2024) Hunger Vital Sign Worried About Running Out of Food in the Last Year: Never true Ran Out of Food in the Last Year: Never true Alcohol Use: Not on file Housing Stability: Low Risk (02/07/2024) Housing Stability Vital Sign Unable to Pay for Housing in the Last Year: No Number of Places Lived in the Last Year: 1 Unstable Housing in the Last Year: No Tobacco Use: Medium Risk (11/07/2023) Patient History Smoking Tobacco Use: Former Smokeless Tobacco Use: Unknown Passive Exposure: Not on file Transportation Needs: No Transportation Needs (02/07/2024) PRAPARE - Transportation Lack of Transportation (Medical): No Lack of Transportation (Non-Medical): No Depression: Not at risk (10/06/2020) PHQ-2 PHQ-2 Score: 2 Utilities: Not At Risk (02/07/2024) Utilities Threatened with loss of utilities: No Stress: Not on file Intimate Partner Violence: Not At Risk (02/07/2024) Humiliation, Afraid, Rape, and Kick questionnaire Fear of Current or Ex-Partner: No Emotionally Abused: No Physically Abused: No Sexually Abused: No Physical Activity: Not on file Social Connections: Not on file Financial Resource Strain: Not on file * Progress Notes - Micheal Delgado MD - 02/07/2024 6:56 AM EDT [facility] Urology Inpatient Progress Note Primary Attending: Michelle Vargas MD Procedure(s): Cystoscopy with right retrograde pyelogram, right ureteral stent placement without strings SUBJECTIVE: Yesterday evening he had a low grade tachycardia of 103. NAEO. This morning patient's mentation hasimproved with increased interaction. Patient was able to answer yes or no questions and identified his catheter, much more interactive than when he arrived to the hospital. Creatinine remains elevated at 2.44 up from 2.32. CYU to johnson, plan for removal today. PHYSICAL EXAM: Temp: [36.4 ??C (97.6 ??F)-37.6 ??C (99.6 ??F)] 36.4 ??C (97.6 ??F) Heart Rate: [63-108] 63 BP: (114-150)/(62-87) 133/81 SpO2: [91 %-97 %] 97 % I O Shift I O 24Hrs LDAs I/O this shift: In: - Out: 400 [Urine:400] I/O last 3 completed shifts: In: 1185.7 (6.9 mL/kg) [P.O.:240; I.V.:944.7 (5.5 mL/kg); IV Piggyback:1] Out: 575 (3.4 mL/kg) [Urine:575 (0.1 mL/kg/hr)] Weight: 171.4 kg Urethral Catheter 16 Fr. (Active) Placement Date/Time: 02/06/24414 Inserted by: Negro Vargas Tube Size (Fr.): 16 Fr. Catheter Balloon Size: 10 mL Difficult Placement: No Urine Returned: Yes GEN: Interactive, NAD HEENT: NCAT, EOMI RESP: Equal bilateral chest rise, normal work of breathing CV: Normal rate, appears well perfused ABD: Deferred : CYU to johnson EXT: No gross deformities MSK: Full ROM in BL UE NEURO: No focal deficits PSYCH: Normal mood and affect LABS: Results from last 7 days Lab Units 02/07/24 0555 WBC 10*3/uL 5.16 HEMOGLOBIN g/dL 8.8* HEMATOCRIT % 29.5* PLATELETS 10*3/uL 170 Results from last 7 days Lab Units 02/07/24 0555 SODIUM mmol/L 145 POTASSIUM mmol/L 3.9 CHLORIDE mmol/L 108* CO2 mmol/L 25 BUN mg/dL 36* CREATININE mg/dL 2.44* EGFR mL/min/1.73m*2 26.6 GLUCOSE mg/dL 126* CALCIUM mg/dL 8.6* Results from last 7 days Lab Units 02/05/242012 COLOR UA Yellow SPEC GRAV U 1.018 PH UA 6.5 PROTEIN UR mg/dL >=300* GLUCOSE UA mg/dL Negative KETONES UA mg/dL Negative LEUKOCYTES UA Large* NITRITE UA Negative RBC, URINE /HPF >50* WBC, URINE /HPF >50* SQUAMOUS /HPF 3 - 5 BACTERIA UR HPF Present Results from last 7 days Lab Units 02/06/24 0402 URINE CULTURE No growth at day 1 IMAGING: HOSPITAL PROBLEM LIST: Principal Problem: Hydronephrosis with urinary obstruction due to ureteral calculus ASSESSMENT: Izabel Goncalves is a 78 y.o. male with PMH dementia, HTN, Afib, HF, MDD, schizophrenia, pancreatic NET presenting with 12 mm right sided obstructing stone with upstream hydronephrosis and UA concerningfor infection. Patient is a deal of the [facility] and reportedly had worsening AMS including being found unresponsive, diaphoresis, clammy skin. At [facility], UA was positive for TNTC WBC, trace bacteria, LE 2+, nitrites neg, 3+ blood, 2+ protein. Lactate 4.6, WBC 15, Cr 2.6 (Cr 1.2). CT A/P w/IV contrast revealed a 1.2 cm obstructing stone in the right mid ureter with upstream hydronephrosis. There is also a 1.2 cm non-obstructing stone in a right interpolar calyx. Right kidney appears atrophic. The CT appears similar to previous in 10/2023 when we previously evaluated him, but with increased right hydronephrosis. He was started on Zosyn and Vanc and transferred to for urology coverage. He was taken to the OR for right stent placement. This morning his mentation has improved and he is making CYU to his johnson. Plan for removal of johnson and TOV. PLAN: - TOV - Continue to monitor creatinine - Continue to monitor urine output - Stone removal in two weeks - Pain: tyl, oxcarbazepine - Diet: NPO - IVF: LR 42 - DVT ppx: Eliquis - GI: colace/senna - Abx: ceftx - LTD: s/p johnson removal - Dispo: continue current level of care Micheal Delgado MD Cosigned by Michelle Vargas MD at 02/09/2024 6:02 PM EDT Associated attestation - Michelle Vargas MD - 02/09/2024 6:02 PM EDT I saw and evaluated the patient with the resident/fellow. I discussed the case with the resident/fellow and agree with the findings and plan as documented. * Care Plan - Mackenzie Sinclair - 02/07/2024 6:40 AM EDT Pt is more alert. Able to answer yes or no questions * Care Plan - Hyacinth Laurent RN - 02/06/2024 5:28 PM EDT Problem: Adult Inpatient Plan of Care Goal: Plan of Care Review Outcome: Ongoing, Progressing Goal: Patient-Specific Goal (Individualized) Outcome: Ongoing, Progressing Goal: Absence of Hospital-Acquired Illness or Injury Outcome: Ongoing, Progressing Goal: Optimal Comfort and Wellbeing Outcome: Ongoing, Progressing Goal: Readiness for Transition of Care Outcome: Ongoing, Progressing Problem: Infection Goal: Absence of Infection Signs and Symptoms Outcome: Ongoing, Progressing * Progress Notes - Vinita Cramer RN - 02/06/2024 1:11 PM EDT Based on pt's legal guardian reported household income he meets 300% FPG. Nori has confirmed transport for 02/07/24 at 11:00 am for bariatric stretcher, orange picker at bedside. * Progress Notes - Micheal Delgado MD - 02/06/2024 8:03 AM EDT [facility] Urology Inpatient Progress Note Primary Attending: Michelle Vargas MD Procedure(s): Cystoscopy with right retrograde pyelogram, right ureteral stent placement without strings SUBJECTIVE: Patient presented overnight with sepsis, right obstructing stone, and UTI. He was taken to the OR for right retrograde pyelogram and right ureteral stent placement. This morning the patient has a subclinical fever of 100.2, tachycardia of 103, and is on NC. Creatinine remains elevated at 2.32. PHYSICAL EXAM: Temp: [36.7 ??C (98 ??F)-37.9 ??C (100.2 ??F)] 37.4 ??C (99.3 ??F) Heart Rate: [92-128] 103 Resp: [19-30] 20 BP: (105-151)/(54-98) 129/87 SpO2: [95 %-100 %] 95 % I O Shift I O 24Hrs LDAs No intake/output data recorded. I/O last 3 completed shifts: In: 406 (2.4 mL/kg) [I.V.:405 (2.4 mL/kg); IV Piggyback:1] Out: 175 (1 mL/kg) [Urine:175 (0 mL/kg/hr)] Weight: 171.4 kg Urethral Catheter 16 Fr. (Active) Placement Date/Time: 02/06/24414 Inserted by: Negro Vargas Tube Size (Fr.): 16 Fr. Catheter Balloon Size: 10 mL Difficult Placement: No Urine Returned: Yes GEN: Somnolent HEENT: NCAT, EOMI RESP: Equal bilateral chest rise, normal work of breathing CV: Tachycardic, appears well perfused ABD: Deferred : Hematuria to johnson EXT: No gross deformities MSK: Full ROM in BL UE NEURO: No focal deficits PSYCH: Normal mood and affect LABS: Results from last 7 days Lab Units 02/06/24 0527 WBC 10*3/uL 10.60* HEMOGLOBIN g/dL 9.5* HEMATOCRIT % 31.5* PLATELETS 10*3/uL 182 Results from last 7 days Lab Units 02/06/24 0527 SODIUM mmol/L 143 POTASSIUM mmol/L 4.3 CHLORIDE mmol/L 105 CO2 mmol/L 24 BUN mg/dL 29* CREATININE mg/dL 2.32* EGFR mL/min/1.73m*2 28.2 GLUCOSE mg/dL 173* CALCIUM mg/dL 8.2* Results from last 7 days Lab Units 02/05/242012 COLOR UA Yellow SPEC GRAV U 1.018 PH UA 6.5 PROTEIN UR mg/dL >=300* GLUCOSE UA mg/dL Negative KETONES UA mg/dL Negative LEUKOCYTES UA Large* NITRITE UA Negative RBC, URINE /HPF >50* WBC, URINE /HPF >50* SQUAMOUS /HPF 3 - 5 BACTERIA UR HPF Present IMAGING: HOSPITAL PROBLEM LIST: Principal Problem: Hydronephrosis with urinary obstruction due to ureteral calculus ASSESSMENT: Izabel Jef Goncalves is a 78 y.o. male with PMH dementia, HTN, Afib, HF, MDD, schizophrenia, pancreatic NET presenting with 12 mm right sided obstructing stone with upstream hydronephrosis and UA concerningfor infection. Patient is a deal of the [facility] and reportedly had worsening AMS including being found unresponsive, diaphoresis, clammy skin. At [facility], UA was positive for TNTC WBC, trace bacteria, LE 2+, nitrites neg, 3+ blood, 2+ protein. Lactate 4.6, WBC 15, Cr 2.6 (Cr 1.2). CT A/P w/IV contrast revealed a 1.2 cm obstructing stone in the right mid ureter with upstream hydronephrosis. There is also a 1.2 cm non-obstructing stone in a right interpolar calyx. Right kidney appears atrophic. The CT appears similar to previous in 10/2023 when we previously evaluated him, but with increased right hydronephrosis. He was started on Zosyn and Vanc and transferred to for urology coverage. He was taken to the OR for right stent placement. This morning he made 175cc with hematuria to johnson. Low grade tachycardia, subclinical fever, and elevated creatinine. It is unclear at this time if he is at his baseline mental status and appears somnolent upon interaction. PLAN: - Continue johnson - Continue to monitor creatinine - Continue to monitor urine output - Stone removal in two weeks - Pain: tyl, oxcarbazepine - Diet: NPO - IVF: LR 42 - DVT ppx: Eliquis - GI: colace/senna - Abx: ceftx - LTD: johnson - Dispo: continue current level of care Micheal Delgado MD Cosigned by Michelle Vargas MD at 02/06/2024 3:18 PM EDT * Op Note - Negro Vargas MD - 02/06/2024 3:49 AM EDT Patient Name: Izabel Goncalves Date: 1945 Date of Surgery: 02/06/24 Procedure Performed: Cystoscopy with right retrograde pyelogram right ureteral stent placement without strings Preoperative Diagnosis: right ureteral stone, UTI Postoperative Diagnosis: Same Surgeon: Michelle Vargas MD Surface To Air Weapons Officer Surgeon: Negro Vargas MD Intraoperative Findings: Cystourethroscopy with no abnormal lesions, masses or stones. Bladder neck was extremely high making it difficult to enter the bladder Fluoroscopy revealed retained contrast within the right kidney detailing a dilated collecting system Hydronephrotic drip present on placement of ureteral catheter. Approximately 23 ml clear and yellowurine aspirated with an empty syringe. This was sent for culture. right ureteral stent was placed without strings Intraoperative fluoroscopy was used to confirm proper placement of the ureteral stents. 16 Fr Johnson catheter placed without difficulty with return of clear red urine Indications: Izabel Goncalves is a 78 y.o. male with an obstructing right ureteral stone and UTI. We discussed management options with the patient's guardian and decision was made to proceed to operating room for surgical intervention. Anesthesia: General Complications: None Drains: 6 Fr x 24 cm JJ stent without strings Specimens: Right Kidney urine culture EBL: Min. Procedure in Detail: After informed consent was obtained, the patient was brought into the surgical suite and transferred to the operating table. SCDs were placed and general anesthesia was administered. The patient was placed in the dorsal lithotomy position and the patient was prepped and draped in the usual sterile fashion. Appropriate preoperative antibiotics were administered prior to the start of the case. A 19 Fr rigid cystoscope was introduced into the patient's urethral meatus and advanced into the urinary bladder. Bladder neck was extremely high making it difficult to enter the bladder. The bladderwas examined and did not have any abnormal lesions, masses or stones. The right ureteral orifice was cannulated with a Sensor wire which was advanced to the level of therenal pelvis. An open ended ureteral catheter was advanced over the wire. There was presence of hydronephrotic drip. Urine appeared clear and yellow. 23 ml able to be aspirated with an empty syringe.This was sent for culture. Fluoroscopy revealed retained contrast within the right kidney detailing a dilated collecting system. The ureteral catheter was exchanged for a wire. A 6 Fr x 24 cm JJ stent without strings was placed over the wire and the proximal end was seen on fluoroscopy to be in the right renal pelvis and the distal end in the bladder. A 16 Fr johnson catheter was placed. The patient tolerated the procedure well and was awakened from anesthesia without difficulty. The patient was taken to PACU for recovery in stable condition. Postoperative Plan: - Admit to Urology, Progressive - continue Johnson catheter - monitor UOP, trend Cr - IV Rocephin - Tylenol and/or Ibuprofen (if no contraindication) for pain/discomfort - Reg Diet - restart appropriate home meds - AM labs Negro Vargas MD Urology PGY-2 Pager: [phone] Cosigned by Michelle Vargas MD at 02/06/2024 3:10 PM EDT Associated attestation - Michelle Vargas MD - 02/06/2024 3:10 PM EDT I was present for the entirety of the procedure(s). * ED Notes - Natalia Coleman - 02/06/2024 2:29 AM EDT This RN spoke with pre-op RN to go over checklist Natalia Coleman 02/06/24 0229 * H&P - Negro Vargas MD - 02/05/2024 11:46 PM EDTAssociated Order(s): Consult to Urology Consult to Urology Consult performed by: Negro Vargas MD Consult ordered by: Selina Brown MD [facility] Urology Consult Note 02/05/24 Service Requesting Consultation: EM CC: right sided obstructing stone, UTI, sepsis HPI: Izabel Goncalves is a 78 y.o. male with PMH dementia, HTN, Afib, HF, MDD, schizophrenia, pancreatic NET presenting with 12 mm right sided obstructing stone with upstream hydronephrosis and UA concerningfor infection. Patient is a deal of the [facility] and reportedly had worsening AMS including being found unresponsive,diaphoresis, clammy skin, prompting a comprehensive work up. At OSH ([facility]), his UA waspositive for TNTC WBC, trace bacteria, LE 2+, nitrites neg, 3+ blood, 2+ protein. Lactate 4.6, WBC 15, Cr 2.6 (Cr 1.2). CT A/P w/IV contrast revealed a 1.2 cm obstructing stone in the mid ureter with upstream hydronephrosis. There is also a 1.2 cm non-obstructing stone in a right interpolar calyx. Right kidney appears atrophic. Known pancreatic mass also identified. The CT appears similar to previous in 10/2023 when we previously evaluated him, but with increased right hydronephrosis. CTA Head/Neck, CT Chest with no acute findings. He was started on Zosyn and Vanc and transferred to for urology coverage. Upon arrival, patient is AF and intermittently tachycardic (patient does have Afib). WBC 14, Hgb 9.9, Cr 2.25 (baseline 1.15). UA positive for bacteria, >50 RBC, >50 WBC, large LE, neg nitrite.Urine culture pending. Unable to obtain history 2/2 dementia and AMS. Does not obviously endorse abdominal pain or CVAT on exam. He is on Eliquis and Metoprolol for Afib. Past Medical History: reviewed Past Medical History: Diagnosis Date Cognitive communication deficit Cognitive communication deficit Essential (primary) hypertension Hypertension Heart failure, unspecified (CMS/HCC) Heart failure Major depressive disorder, single episode, unspecified Depression Mental disorder, not otherwise specified Mental disorder Neuroendocrine tumor Pancreatic mass Paranoid schizophrenia (CMS/HCC) Chronic paranoid schizophrenia Past Surgical History: reviewed Past Surgical History: Procedure Laterality Date PANCREAS SURGERY N/A Pancreas surgery from [facility] Family History: reviewed No family history on file. Social History: reviewed Social History Tobacco Use Smoking status: Former Outpatient Medications: Current Outpatient Medications Medication Instructions acetaminophen (TYLENOL) 500 mg, Oral, 2 times daily, Joint Pain acetaminophen (TYLENOL) 1,000 mg, Oral, Every 6 hours PRN apixaban (ELIQUIS) 5 mg, Oral, 2 times daily atorvastatin (LIPITOR) 10 mg, Oral, Every other day, Nightly bumetanide (BUMEX) 1 mg, Oral, 2 times daily (0900 & 1500) carvedilol (COREG) 25 mg, Oral, 2 times daily chlorhexidine (Hibiclens) 4 % external solution 1 Application, Topical, 2 times daily, Before Triamcinolone application to bilateral lower legs docusate sodium (COLACE) 250 mg, Oral, Daily donepezil (ARICEPT) 10 mg, Oral, Nightly doxazosin (CARDURA) 1 mg, Oral, Nightly guaiFENesin (ROBITUSSIN) 300 mg, Oral, Every 6 hours PRN losartan (COZAAR) 50 mg, Oral, Daily menthol-zinc oxide (Calmoseptine) 0.44-20.6 % ointment ointment 1 Application, Topical, 2 times daily, Buttocks and Groin miconazole (Micotin) 2 % powder 1 Application, Topical, 2 times daily, Breast and Groin ondansetron (ZOFRAN) 4 mg, Oral, Every 6 hours PRN OXcarbazepine (TRILEPTAL) 300 mg, Oral, 2 times daily pantoprazole (PROTONIX) 40 mg, Oral, Daily polyethylene glycol (MIRALAX) 17 g, Oral, 3 times weekly, Monday, Monday, Monday risperiDONE (RISPERDAL) 1 mg, Oral, Daily risperiDONE (RISPERDAL) 2 mg, Oral, Nightly senna (Senokot) 8.6 MG tablet 1 tablet, Oral, Every 24 hours PRN spironolactone (ALDACTONE) 25 mg, Oral, 2 times daily triamcinolone (Kenalog) 0.1 % lotion 1 Application, Topical, 2 times daily, Bilateral Lower legs for warm/red irritation after Hibiclens solution ROS: Review of Systems Unable to perform ROS: Dementia PHYSICAL EXAM: Temp: [36.7 ??C (98.1 ??F)-36.9 ??C (98.4 ??F)] 36.9 ??C (98.4 ??F) Heart Rate: [95-115] 113 Resp: [19-30] 21 BP: (106-142)/(54-90) 142/90 SpO2: [96 %-98 %] 97 % GEN: sleeping, ill appearing HEENT: NCAT, EOMI RESP: Equal bilateral chest rise, normal work of breathing CV: Tachycardic, appears well perfused ABD: Nondistended : no right CVAT appreciated, Johnson catheter in place draining mild pink tinged urine EXT: No gross deformities NEURO: Unable to assess PSYCH: Unable to assess LABS: Results from last 7 days Lab Units 02/05/242012 WBC 10*3/uL 14.01* HEMOGLOBIN g/dL 9.9* HEMATOCRIT % 33.2* PLATELETS 10*3/uL 185 Results from last 7 days Lab Units 02/05/242012 SODIUM mmol/L 137 POTASSIUM mmol/L 4.0 CHLORIDE mmol/L 99 CO2 mmol/L 25 BUN mg/dL 28* CREATININE mg/dL 2.25* EGFR mL/min/1.73m*2 29.3 GLUCOSE mg/dL 203* CALCIUM mg/dL 8.3* Results from last 7 days Lab Units 02/05/242012 COLOR UA Yellow SPEC GRAV U 1.018 PH UA 6.5 PROTEIN UR mg/dL >=300* GLUCOSE UA mg/dL Negative KETONES UA mg/dL Negative LEUKOCYTES UA Large* NITRITE UA Negative RBC, URINE /HPF >50* WBC, URINE /HPF >50* SQUAMOUS /HPF 3 - 5 BACTERIA UR HPF Present Imaging: I have personally reviewed the imaging below: CT A/P w/IV contrast (OSH) - 1.2 cm obstructing stone in the right mid ureter with upstream hydronephrosis - 1.2 cm non-obstructing stone in a right interpolar calyx - Right kidney appears atrophic - Known pancreatic mass also identified Hospital Problem List: Active Problems: There are no active Hospital Problems. Assessment: Izabel Goncalves is a 78 y.o. male with PMH dementia, HTN, Afib, HF, MDD, schizophrenia, pancreatic NET presenting with 12 mm right sided obstructing stone with upstream hydronephrosis and UA concerning for infection. Patient is a deal of the [facility] and reportedly had worsening AMS including being found unresponsive, diaphoresis, clammy skin. At [facility], UA was positivefor TNTC WBC, trace bacteria, LE 2+, nitrites neg, 3+ blood, 2+ protein. Lactate 4.6, WBC 15, Cr 2.6 (Cr 1.2). CT A/P w/IV contrast revealed a 1.2 cm obstructing stone in the right mid ureter with upstream hydronephrosis. There is also a 1.2 cm non-obstructing stone in a right interpolar calyx. Right kidney appears atrophic. The CT appears similar to previous in 10/2023 when we previously evaluated him, but with increased right hydronephrosis. He was started on Zosyn and Vanc and [facility]. Upon arrival, patient is AF and intermittently tachycardic (patient has Afib). WBC 14, Hgb 9.9, Cr 2.25 (baseline 1.15). UA positive for bacteria, >50 RBC, >50 WBC, large LE, neg nitrite. Urineculture pending. Unable to obtain history 2/2 dementia and AMS. Will plan to take patient to OR forurgent stent placement. Plan: - Admit to Urology - To OR as a B for right ureteral stent placement - consent obtained via lead front end developer guardian (Inga Steele), consent in chart - NPO, mIVF - Preoperative IV abx, continue broad spectrum IV abx post-procedure, tailored to culture sensitivities when available - consult to Medicine to assist with management of co-morbidities - monitor UOP, trend Cr - follow urine culture - restart appropriate home meds Negro Vargas MD Urology PGY-2 Pager: [phone] Cosigned by Michelle Vargas MD at 02/06/2024 3:09 PM EDT Associated attestation - Michelle Vargas MD - 02/06/2024 3:09 PM EDT I saw and evaluated the patient with the resident/fellow. I discussed the case with the resident/fellow and agree with the findings and plan as documented. Will admit to the hospital for IV antibiotics. We will also place a stent and a johnson urgently. * ED Provider Notes - Trenton Malik DO - 02/05/2024 7:20 PM EDT Images from the original note were not included. - HPI Chief Complaint Patient presents with Abdominal Pain HPI Patient is a 78-year-old male presenting as a transfer from outside hospital after an initial presentation for altered mental status. Patient has a baseline history of dementia, and schizophrenia. The patient has a allegedly nonverbal at baseline, and no family/caregivers were able to provide further history. All history is obtained from previous medical record Patient History Past Medical History: Diagnosis Date Cognitive communication deficit Cognitive communication deficit Essential (primary) hypertension Hypertension Heart failure, unspecified (CMS/HCC) Heart failure Major depressive disorder, single episode, unspecified Depression Mental disorder, not otherwise specified Mental disorder Neuroendocrine tumor Pancreatic mass Paranoid schizophrenia (CMS/HCC) Chronic paranoid schizophrenia Past Surgical History: Procedure Laterality Date PANCREAS SURGERY N/A Pancreas surgery from [facility] No family history on file. Tobacco Use Smoking status: Former Allergies: No Known Allergies Physical Exam ED Triage Vitals [02/05/241942] Temp Heart Rate Resp BP 36.9 ??C (98.4 ??F) 100 (!) 30 (!) 142/84 SpO2 Temp Source Heart Rate Source Patient Position 98 % Oral Monitor Lying BP Location FiO2 (%) Right arm -- Physical Exam Vitals and nursing note reviewed. Constitutional: Appearance: He is ill-appearing. HENT: Head: Normocephalic. Mouth/Throat: Mouth: Mucous membranes are moist. Cardiovascular: Rate and Rhythm: Tachycardia present. Heart sounds: Normal heart sounds. Pulmonary: Effort: Pulmonary effort is normal. Abdominal: General: There is distension. Palpations: Abdomen is soft. Tenderness: There is generalized abdominal tenderness. Skin: General: Skin is warm. Neurological: GCS: GCS eye subscore is 2. GCS verbal subscore is 1. GCS motor subscore is 5. [place] Coma Scale Score: 12 ED Course & MDM - Assessment: 78 y.o. male presents to ED with complaint of altered mental status, urinary tract infection, obstructing kidney stone. It should be noted that the chronic conditions includes dementia and schizophrenia, which currently is not at goal therapy. This complicates the clinical picture because it Comorbidities: may be exacerbating symptoms and increases the amount and complexity of data to be reviewed Differential Diagnosis: Septic stone, urinary tract infection, nephrolithiasis, dementia, schizophrenia, polypharmacy, stroke, among others In order to fully explore the differential diagnosis the following treatments and tests were ordered: All Other Orders Ordered Status Ordering Provider 02/05/24 2342 Ambulate patient 4 times daily Acknowledged DAQUAN VARGASNCER 02/05/24 2323 NPO diet NPO except: Sips with meds Diet effective midnight Acknowledged ROVERTO VARGASER 02/05/24 2342 Vital Signs (Every 4 hours) Every 4 hours Acknowledged ROVERTO VARGASER 02/05/24 2342 Check pulse oximetry (Every 4 hours) Every 4 hours Acknowledged DAQUAN VARGASNCER 02/05/24 2342 Intake and Output (Every 4 hours) Every 4 hours Acknowledged DAQUAN VARGASNCER 02/05/24 2342 Do Not Give Nicotine Replacement Until discontinued Acknowledged DAQUAN VARGASNCER 02/05/24 2342 Full code Continuous Acknowledged DAQUAN VARGASNCER 02/05/24 234 Reason for No VTE Prophylaxis Once Completed NII NEGRO 02/05/24 2342 Admit to inpatient Once Acknowledged DAQUAN VARGASNCER 02/05/24 2342 Mobility Orders Until discontinued Acknowledged ROVERTO VARGASER 02/05/24 2342 Out of Bed Until discontinued Acknowledged DAQUAN VARGASNCER 02/05/24 2342 Notify Provider Until discontinued Acknowledged DAQUAN VARGASNCER 02/05/24 2342 Insert peripheral IV Once Placed in And Linked Group Completed DAQUAN VARGASNCER 02/05/24 234 Saline lock IV Once Placed in And Linked Group Completed DAQUAN VARGASNCER 02/05/24 2342 Do NOT transfer patient to [facility] without chief resident or attending apporval Until discontinued Acknowledged NII NEGRO 02/05/24 232 Skin prep Once Completed VARGAS NEGRO 02/05/24 2323 Hibiclens Scrub Until discontinued Comments: Shower/scrub evening before and morning of procedure; include 5 minutes scrub each time to operative site with chlorhexidine gluconate 4% (Hibiclens). Acknowledged ROVERTO VARGASER 02/05/24 232 Void lead front end developer to OR Once Completed NII NEGRO 02/05/24 232 Case Request Operating Room: CYSTOSCOPY, WITH URETERAL STENT INSERTION Once Completed NEGRO VARGAS 02/05/24 2317 Consult to Hospital Medicine Once Specialty: Internal Medicine Provider: (Not yet assigned) Acknowledged TRENTON MALIK 02/05/242221 Urinalysis Microscopic Examination Once Final result SELINA BROWN 02/05/242208 Consult to Urology Once Specialty: Urology Provider: (Not yet assigned) Completed TRENTON MALIK 02/05/242112 Lactate, venous Once Final result TRENTON MALIK 02/05/241951 CBC w/diff STAT Final result SELINA BROWN 02/05/241951 CMP STAT Final result SELINA BROWN 02/05/241951 Urinalysis with reflex microscopic AND reflex culture (IF UTI SUSPECTED) STAT Final result SELINA BROWN 02/05/241951 Insert peripheral IV Once Completed SELINA BROWN 02/05/241951 Type and screen Start now Final result SELINA BROWN 02/05/241951 Urinalysis with reflex microscopic (Culture NOT Included) PROCEDURE ONCE Final result SELINA BROWN 02/05/241951 Urine Velez Panel PROCEDURE ONCE Final result SELINA BROWN ED Course as of 02/06/24 0142 MonFeb 05, 20242030 WBC(!): 14.01 [WE] 2030 Hemoglobin(!): 9.9 [WE] ED Course User Index [WE] Trenton Malik DO Social Determinates of Health Risks (including Economic Stability, Education and level of understanding, Healthcare access and quality and concerning social factors): Social factors impacting patient's psychosocial well-being and Lives far away This is a 78-year-old male presenting to emergency department as a transfer from outside hospital for further evaluation after an initial presentation for altered mental status. Patient has a medicalhistory relevant for dementia, and schizophrenia, and per review of outside medical records noted to be nonverbal at baseline, however no further baseline neurologic status as noted. On initial examination, the patient was nonverbal, but does withdrawal to pain. Patient was protecting his airway. Patient presents with tenderness to palpation in his lower abdomen. CT imaging was performed at outside hospital was independently reviewed by this physician did demonstrate significant right-sided hydr onephrosis, with an approximate 1.2 cm obstructing kidney stone. Urinalysis outside hospital demonstrated significant pyuria. Patient received vanc and Zosyn prior to transfer, had received approximately 2 L of fluid. Due to the nature of the patient's complaint, Urology was consulted early in the patient's course. Upon their evaluation they admitted the patient their service for further medical and likely surgical intervention. Rocephin was discussed with the urology team, decided not to pursue at this time. Ultimately, this patient was Was admitted (Admission) The encounter diagnosis was Hydronephrosis with urinary obstruction due to ureteral calculus.. Patient believed to require admission for the listed diagnoses. The urology service was consulted for admission and was agreeable to admit to Acute Floor (Med/Surg). ED Prescriptions None Disposition Admit Admitting/Attending Physician: MICHELLE VARGAS [[id number]] Provider Care Team: [facility] [[id number]] Are they the primary team?: Yes [1] - Trenton Malik DO Resident 02/06/24 0150 Cosigned by Selina Brown MD at 02/06/2024 10:14 PM EDT Associated attestation - Selina Brown MD - 02/06/2024 10:14 PM EDT I saw and evaluated the patient with the resident/fellow. I discussed the case with the resident/fellow and agree with the findings and plan as documented. * ED Triage Notes - Natalia Coleman - 02/05/2024 7:20 PM EDT Pt transferred from [facility] for sepsis and a 12 mm right kidney stone they foundtoday. Pt has PMHX of dementia and schizophrenia so has confusion at baseline. Pt does respond to painful stimuli. documented in this encounter Plan of Treatment Upcoming Encounters Date Type Department Care Team (Late st Contact Info) Description 02/28/2024 10:40 AM EST Hospital Encounter [facility] [address] [place] [address] Michelle Vargas MD [id number] [place] [address] 02/28/2024 10:40 AM EST Anesthesia Event [facility] [address] [place] [phone] Fransico Mcgarry MD [address] [place] [address] 02/28/2024 10:40 AM EST - 02/28/2024 1:05 PM EST Surgery [facility] [address] [place] [phone] Michelle Vargas MD [address] [place] [address] URETEROSCOPY, WITH LASER LITHOTRIPSY [23035 (CPT??)] 05/16/2024 3:45 PM EST Office Visit Medical Office Building Urology [address] [facility], [address] [place] [phone] Mark Moore MD [address] [place] [phone] Scheduled Procedures Name Priority Associated Diagnoses Date/Ti me URETEROSCOPY, WITH LASER LITHOTRIPSY Ureteral stone 02/28/2024 10:40 AM EST documented as of this encounter Procedures Procedure Name Priority Date/Time Associated Diagnosis Comments CBC W/O DIFFERENTIAL STAT 02/08/2024 6:12 AM EDT BASIC METABOLIC PANEL, PLASMA STAT 02/08/2024 6:12 AM EDT CBC W/O DIFFERENTIAL STAT 02/07/2024 5:55 AM EDT BASIC METABOLIC PANEL, PLASMA STAT 02/07/2024 5:55 AM EDT CBC W/O DIFFERENTIAL Routine 02/06/2024 5:27 AM EDT PHOSPHORUS, PLASMA Routine 02/06/2024 5: 27 AM EDT MAGNESIUM, PLASMA Routine 02/06/2024 5:2 7 AM EDT BASIC METABOLIC PANEL, PLASMA Routine 02/06/2024 5:27 AM EDT FL LESS THAN 1 HOUR (NON-REPORTABLE) STAT 02/06/2024 4:25 AM EDT URINE CULTURE Routine 02/06/2024 4:02 AM EDT Hydronephrosis with urinary obstruction due to ureteral calculus UT CYSTOSCOPY,INSERT URETERAL STENT 02/06/2024 2:59 AM EDT Hydronephrosis with urinary obstruction due to ureteral calculus Special Needs Cmax LACTATE, VENOUS STAT 02/05/2024 9:21 PM EDT SEND DORY MESSAGE STAT 02/05/2024 8: 13 PM EDT URINALYSIS WITH REFLEX MICROSCOPIC STAT 02/05/2024 8:13 PM EDT URINE VELEZ PANEL STAT 02/05/2024 8:13 PM EDT URINALYSIS MICROSCOPIC FOR UA REFLEX STAT 02/05/2024 8:13 PM EDT URINALYSIS WITH REFLEX MICROSCOPIC STAT 02/05/2024 8:13 PM EDT CBC WITH AUTO DIFFERENTIAL STAT 02/05/2024 8:13 PM EDT TYPE AND SCREEN STAT 02/05/2024 8:13 PM EDT URINE CULTURE STAT 02/05/2024 8:13 PM EDT COMPREHENSIVE METABOLIC PANEL, PLASMA STAT 02/05/2024 8:13 PM EDT documented in this encounter Results * (ABNORMAL) Basic metabolic panel (02/08/2024 6:12 AM EDT) Glucose, Plasma 144(H) 74 - 99 mg/dL 02/08/2024 6:49 AM EDT [facility] BUN, Plasma 31(H) 8 - 23 mg/dL 02/08/2024 6:49 AM EDT [facility] Creatinine, Plasma 1.77(H) 0.70 - 1.20 mg/dL 02/08/2024 6:49 AM EDT [facility] BUN/Creatinine Ratio 18 02/08/2024 6:49 AM EDT [facility] Sodium, Plasma 134(L) 136 - 145 mmol/L 02/08/2024 6:49 AM EDT [facility] Potassium, Plasma 4.2 3.6 - 4.9 mmol/L 02/08/2024 6:49 AM EDT [facility] Comment:Hemolyzed, result ma y be falsely increased. Chloride, Plasma 100 97 - 107 mmol/L 02/08/2024 6:49 AM EDT [facility] CO2, Plasma 21(L) 22 - 29 mmol/L 02/08/2024 6:49 AM EDT [facility] Anion Gap 13 6 - 16 mmol/L 02/08/2024 6:49 AM EDT [facility] Total Calcium, Plasma 7.7(L) 8.9 - 10.2 mg/dL 02/08/2024 6:49 AM EDT [facility] eGFRcr 39.1 mL/min/1.7 3m*2 02/08/2024 6:49 AM EDT [facility] Comment:Reported eGFRcr in m L/min/1.73m2 is based the CKD-EPI 2020 equation that does not use a race coefficient. Blood Venous blood specimen / Unknown Venipuncture / Unknown 02/08/2024 6:12 AM EDT 02/08/2024 6:17 AM EDT us Michelle Vargas MD LAB BLOOD ORDERABLES Final Resul t [facility] [address] [place] [address] * (ABNORMAL) CBC W/O Differential (02/08/2024 6:12 AM EDT) WBC Count 5.65 3.70 - 10.30 10*3/uL LAB HEMATOLOGY METHOD 02/08/2024 6:24 AM EDT [facility] RBC Count 3.18(L) 4.60 - 6.10 10*6/uL LAB HEMATOLOGY METHOD 02/08/2024 6:24 AM EDT [facility] HGB 8.9(L) 13.7 - 17.5 g/dL LAB HEMATOLOGY METHOD 02/08/2024 6:24 AM EDT [facility] HCT 29.0(L) 40.0 - 51.0 % LAB HEMATOLOGY METHOD 02/08/2024 6:24 AM EDT [facility] Platelet Count 156 155 - 369 10*3/uL LAB HEMATOLOGY METHOD 02/08/2024 6:24 AM EDT [facility] MCV 91 79 - 98 fL LAB HEMATOLOGY METHOD 02/08/2024 6:24 AM EDT [facility] MCH 28.0 26.0 - 32.0 pg LAB HEMATOLOGY METHOD 02/08/2024 6:24 AM EDT [facility] MCHC 30.7 30.7 - 35.5 g/dL LAB HEMATOLOGY METHOD 02/08/2024 6:24 AM EDT [facility] RDW 17.9(H) 11.5 - 14.5 % LAB HEMATOLOGY METHOD 02/08/2024 6:24 AM EDT [facility] MPV 10.4 8.8 - 12.5 fL LAB HEMATOLOGY METHOD 02/08/2024 6:24 AM EDT [facility] nRBC 1.2(H) <=0.0 per 100 WBCs LAB HEMATOLOGY METHOD 02/08/2024 6:24 AM EDT [facility] Blood Venous blood specimen / Unknown Venipuncture / Unknown 02/08/2024 6:12 AM EDT 02/08/2024 6:17 AM EDT us Michelle Vargas MD LAB BLOOD ORDERABLES Final Resul t [facility] [address] [place] [address] * (ABNORMAL) Basic metabolic panel (02/07/2024 5:55 AM EDT) Glucose, Plasma 126(H) 74 - 99 mg/dL 02/07/2024 6:32 AM EDT [facility] BUN, Plasma 36(H) 8 - 23 mg/dL 02/07/2024 6:32 AM EDT [facility] Creatinine, Plasma 2.44(H) 0.70 - 1.20 mg/dL 02/07/2024 6:32 AM EDT [facility] BUN/Creatinine Ratio 15 02/07/2024 6:32 AM EDT [facility] Sodium, Plasma 145 136 - 145 mmol/L 02/07/2024 6:32 AM EDT [facility] Potassium, Plasma 3.9 3.6 - 4.9 mmol/L 02/07/2024 6:32 AM EDT [facility] Chloride, Plasma 108(H) 97 - 107 mmol/L 02/07/2024 6:32 AM EDT [facility] CO2, Plasma 25 22 - 29 mmol/L 02/07/2024 6:32 AM EDT [facility] Anion Gap 12 6 - 16 mmol/L 02/07/2024 6:32 AM EDT [facility] Total Calcium, Plasma 8.6(L) 8.9 - 10.2 mg/dL 02/07/2024 6:32 AM EDT [facility] eGFRcr 26.6 mL/min/1.7 3m*2 02/07/2024 6:32 AM EDT [facility] Comment:Reported eGFRcr in m L/min/1.73m2 is based the CKD-EPI 2020 equation that does not use a race coefficient. Blood Venous blood specimen / Unknown Venipuncture / Unknown 02/07/2024 5:55 AM EDT 02/07/2024 6:00 AM EDT us Michelle Vargas MD LAB BLOOD ORDERABLES Final Resul t [facility] [address] [place] [address] * (ABNORMAL) CBC W/O Differential (02/07/2024 5:55 AM EDT) [facility] WBC Count 5.16 3.70 - 10.30 10*3/uL LAB HEMATOLOGY METHOD 02/07/2024 6:06 AM EDT [facility] RBC Count 3.16(L) 4.60 - 6.10 10*6/uL LAB HEMATOLOGY METHOD 02/07/2024 6:06 AM EDT [facility] HGB 8.8(L) 13.7 - 17.5 g/dL LAB HEMATOLOGY METHOD 02/07/2024 6:06 AM EDT [facility] HCT 29.5(L) 40.0 - 51.0 % LAB HEMATOLOGY METHOD 02/07/2024 6:06 AM EDT [facility] Platelet Count 170 155 - 369 10*3/uL LAB HEMATOLOGY METHOD 02/07/2024 6:06 AM EDT [facility] MCV 93 79 - 98 fL LAB HEMATOLOGY METHOD 02/07/2024 6:06 AM EDT [facility] MCH 27.8 26.0 - 32.0 pg LAB HEMATOLOGY METHOD 02/07/2024 6:06 AM EDT [facility] MCHC 29.8(L) 30.7 - 35.5 g/dL LAB HEMATOLOGY METHOD 02/07/2024 6:06 AM EDT [facility] RDW 18.4(H) 11.5 - 14.5 % LAB HEMATOLOGY METHOD 02/07/2024 6:06 AM EDT [facility] MPV 10.5 8.8 - 12.5 fL LAB HEMATOLOGY METHOD 02/07/2024 6:06 AM EDT [facility] nRBC 0.0 <=0.0 per 100 WBCs LAB HEMATOLOGY METHOD 02/07/2024 6:06 AM EDT [facility] Blood Venous blood specimen / Unknown Venipuncture / Unknown 02/07/2024 5:55 AM EDT 02/07/2024 6:00 AM EDT us Michelle Vargas MD LAB BLOOD ORDERABLES Final Resul t [facility] [address] [place] [address] * Phosphorus (02/06/2024 5:27 AM EDT) Phosphorus, Plasma 3.9 2.5 - 4.5 mg/dL 02/06/2024 6:07 AM EDT [facility] Blood Venous blood specimen / Unknown Venipuncture / Unknown 02/06/2024 5:27 AM EDT 02/06/2024 5:36 AM EDT Michelle Vargas MD LAB BLOOD ORDERABLES Final Resul t Performing Organization Address City/[facility]/ZIP Co de Phone Number [facility] [address] [place] [address] * Magnesium (02/06/2024 5:27 AM EDT) Magnesium, Plasma 2.1 1.9 - 2.4 mg/dL 02/06/2024 6:07 AM EDT [facility] Blood Venous blood specimen / Unknown Venipuncture / Unknown 02/06/2024 5:27 AM EDT 02/06/2024 5:36 AM EDT Michelle Vargas MD LAB BLOOD ORDERABLES Final Resul t Performing Organization Address City/[facility] Co de Phone Number [facility] [address] [place] [address] * (ABNORMAL) Basic metabolic panel (02/06/2024 5:27 AM EDT) Glucose, Plasma 173(H) 74 - 99 mg/dL 02/06/2024 6:07 AM EDT [facility] BUN, Plasma 29(H) 8 - 23 mg/dL 02/06/2024 6:07 AM EDT [facility] Creatinine, Plasma 2.32(H) 0.70 - 1.20 mg/dL 02/06/2024 6:07 AM EDT [facility] BUN/Creatinine Ratio 13 02/06/2024 6:07 AM EDT [facility] Sodium, Plasma 143 136 - 145 mmol/L 02/06/2024 6:07 AM EDT [facility] Potassium, Plasma 4.3 3.6 - 4.9 mmol/L 02/06/2024 6:07 AM EDT [facility] Chloride, Plasma 105 97 - 107 mmol/L 02/06/2024 6:07 AM EDT [facility] CO2, Plasma 24 22 - 29 mmol/L 02/06/2024 6:07 AM EDT [facility] Anion Gap 14 6 - 16 mmol/L 02/06/2024 6:07 AM EDT [facility] Total Calcium, Plasma 8.2(L) 8.9 - 10.2 mg/dL 02/06/2024 6:07 AM EDT [facility] eGFRcr 28.2 mL/min/1.7 3m*2 02/06/2024 6:07 AM EDT [facility] Comment:Reported eGFRcr in m L/min/1.73m2 is based the CKD-EPI 2020 equation that does not use a race coefficient. Blood Venous blood specimen / Unknown Venipuncture / Unknown 02/06/2024 5:27 AM EDT 02/06/2024 5:36 AM EDT us Michelle Vargas MD LAB BLOOD ORDERABLES Final Resul t [facility] [address] [place] [address] * (ABNORMAL) CBC W/O Differential (02/06/2024 5:27 AM EDT) WBC Count 10.60(H) 3.70 - 10.30 10*3/uL LAB HEMATOLOGY METHOD 02/06/2024 5:47 AM EDT [facility] RBC Count 3.40(L) 4.60 - 6.10 10*6/uL LAB HEMATOLOGY METHOD 02/06/2024 5:47 AM EDT [facility] HGB 9.5(L) 13.7 - 17.5 g/dL LAB HEMATOLOGY METHOD 02/06/2024 5:47 AM EDT [facility] HCT 31.5(L) 40.0 - 51.0 % LAB HEMATOLOGY METHOD 02/06/2024 5:47 AM EDT [facility] Platelet Count 182 155 - 369 10*3/uL LAB HEMATOLOGY METHOD 02/06/2024 5:47 AM EDT [facility] MCV 93 79 - 98 fL LAB HEMATOLOGY METHOD 02/06/2024 5:47 AM EDT [facility] MCH 27.9 26.0 - 32.0 pg LAB HEMATOLOGY METHOD 02/06/2024 5:47 AM EDT [facility] MCHC 30.2(L) 30.7 - 35.5 g/dL LAB HEMATOLOGY METHOD 02/06/2024 5:47 AM EDT [facility] RDW 18.5(H) 11.5 - 14.5 % LAB HEMATOLOGY METHOD 02/06/2024 5:47 AM EDT [facility] MPV 10.1 8.8 - 12.5 fL LAB HEMATOLOGY METHOD 02/06/2024 5:47 AM EDT [facility] nRBC 0.0 <=0.0 per 100 WBCs LAB HEMATOLOGY METHOD 02/06/2024 5:47 AM EDT [facility] Blood Venous blood specimen / Unknown Venipuncture / Unknown 02/06/2024 5:27 AM EDT 02/06/2024 5:39 AM EDT us Michelle Vargas MD LAB BLOOD ORDERABLES Final Resul t [facility] [address] [place] [address] * FL Less than 1 Hour Intraoperative (02/06/2024 4:25 AM EDT) Narrative IMAGING - 02/06/2024 4:26 AM EDT Images were obtained for surgical purposes. ??See Michelle Vargas's surgical note in the patient's chart for the findings. us Michelle Vargas MD IMG FLUOROSCOPY PROCEDURES Final Result IMAGING * Urine Culture (02/06/2024 4:02 AM EDT) Culture No growth at day 1 02/07/2024 9:22 AM EDT [facility] Urine Right kidney structure / Unknown 02/06/2024 4:02 AM EDT 02/06/2024 7:13 AM EDT Comment:Pre-op diagnosis: Hydronephrosis with urinary obstruction due to ureteral calculus [N13.2] Michelle Vargas MD LAB MICROBIOLOGY - GENERAL ORDER MONTY Final Result Performing Organization Address [facility] Co de Phone Number [facility] [address] [place] [address] * Lactate, venous (02/05/2024 9:21 PM EDT) Lactate, Venous, Whole Blood 1.7 0.5 - 2.2 mmol/L LAB HEMATOLOGY METHOD 02/05/2024 9:35 PM EDT [facility] Blood Venous blood specimen / Unknown Venipuncture / Unknown 02/05/2024 9:21 PM EDT 02/05/2024 9:31 PM EDT Selina Brown MD LAB BLOOD ORDERABLES Final Re sult Performing Organization Address City/[facility] Co de Phone Number [facility] [address] [place] [address] * SEND DORY MESSAGE (02/05/2024 8:13 PM EDT) Urine Urine specimen obtained by clean catch procedure / Unknown Non-blood Collection / Unknown 02/05/2024 8:13 PM EDT 02/05/2024 10:13 PM EDT Result [facility] Selina Brown MD LAB URINE ORDERABLES Final Re sult Performing Organization Address City/[facility] Co de Phone Number [facility] [address] [place] [address] * (ABNORMAL) Urine Culture (02/05/2024 8:13 PM EDT) Culture 10,000 - 100,000 CFU/mL Klebsiella pneumoniae ESBL(AA) LAURY 02/09/2024 12:56 PM EDT [facility] Comment: This isolate has been identified using the FDA Approved [employer] System Edited result: Previously reported as Gram Negative Tk on 02/07/2024 at 1457 EDT. Edited result: Previously reported as Klebsiella pneumoniae on 02/08/2024 at 1215 EDT. Urine Urine specimen obtained by clean catch procedure / Unknown Non-blood Collection / Unknown 02/05/2024 8:13 PM EDT 02/05/2024 10:13 PM EDT Narrative Organism Antibiotic Method Susceptibility Klebsiella pneumoniae ESBL Amikacin LAURY <=8 ug/ml: Susceptible Klebsiella pneumoniae ESBL Ampicillin LAURY >16 ug/ml: Resistant Klebsiella pneumoniae ESBL Ampicillin/Sulbactam LAURY >16/8 ug/ml: Resistant Klebsiella pneumoniae ESBL Aztreonam LAURY >16 ug/ml: Resistant Klebsiella pneumoniae ESBL Cefazolin LAURY >16 ug/ml: Resistant Comment:Breakpoints when cefazolin is used for therapy of uncomplicated UTIs due to E. coli, K. pneumoniae, and P. mirabilis. Breakpoints are based on a dosage regimen of 1 g administered every 12 hours. Cefazolin should be used as a surrogate to predict susceptibility for all oral cephalosporins (including cephalexin and cefdinir)??to E. coli, Klebsiella spp.,??and P. mirabilis??isolated from the urine. Klebsiella pneumoniae ESBL Cefepime LAURY 16 ug/ml: Resistant Klebsiella pneumoniae ESBL Ceftriaxone LAURY >32 ug/ml: Resistant Klebsiella pneumoniae ESBL Ciprofloxacin LAURY >2 ug/ml: Resistant Klebsiella pneumoniae ESBL Ertapenem LAURY <=0.25 ug/ml: Susceptible Klebsiella pneumoniae ESBL Gentamicin LAURY <=2 ug/ml: Susceptible Klebsiella pneumoniae ESBL Levofloxacin LAURY >4 ug/ml: Resistant Klebsiella pneumoniae ESBL Meropenem LAURY <=0.5 ug/ml: Susceptible Klebsiella pneumoniae ESBL Nitrofurantoin LAURY <=16 ug/ml: Susceptible Klebsiella pneumoniae ESBL Piperacillin/Tazobactam LAURY 8/4 ug/ml: Resistant Klebsiella pneumoniae ESBL Tetracycline LAURY <=2 ug/ml: Susceptible Klebsiella pneumoniae ESBL Tobramycin LAURY <=2 ug/ml: Susceptible Klebsiella pneumoniae ESBL Trimethoprim/Sulfamethoxazo le LAURY >2/38 ug/ml: Resistant us Selina Brown MD LAB MICROBIOLOGY - GENERAL OR DERABLES Final Result [facility] [address] [place] [address] * Urinalysis Microscopic Examination (02/05/2024 8:13 PM EDT) Urine Urine specimen obtained by clean catch procedure / Unknown Non-blood Collection / Unknown 02/05/2024 8:13 PM EDT 02/05/2024 8:25 PM EDT us Selina Brown MD LAB URINE ORDERABLES Final Re sult Performing Organization Address [facility]/ZIP Co de Phone Number [facility] [address] [place] [address] * Urine Velez Panel (02/05/2024 8:13 PM EDT) Extra Sent for Culture 02/06/2024 12:02 AM EDT [facility] Urine Urine specimen obtained by clean catch procedure / Unknown Non-blood Collection / Unknown 02/05/2024 8:13 PM EDT 02/05/2024 10:13 PM EDT us Selina Brown MD LAB URINE ORDERABLES Final Re sult Performing Organization Address [facility] Co de Phone Number [facility] [address] [place] [address] * (ABNORMAL) Urinalysis with reflex microscopic (Culture NOT Included) (02/05/2024 8:13 PM EDT) Color, Urine Yellow LAB URINALYSIS - AUTOMATED METHOD 02/05/2024 10:24 PM EDT [facility] Clarity, Urine Cloudy LAB URINALYSIS - AUTOMATED METHOD 02/05/2024 10:24 PM EDT [facility] Spec Petal, Urine 1.018 1.005 - 1.030 LAB URINALYSIS - AUTOMATED METHOD 02/05/2024 10:24 PM EDT [facility] pH, Urine 6.5 4.5 to 8 LAB URINALYSIS - AUTOMATED METHOD 02/05/2024 10:24 PM EDT [facility] Protein, Urine >=300(A) Negative mg/dL LAB URINALYSIS - AUTOMATED METHOD 02/05/2024 10:24 PM EDT [facility] Glucose, Urine Negative Negative mg/dL LAB URINALYSIS - AUTOMATED METHOD 02/05/2024 10:24 PM EDT [facility] Ketones, Urine Negative Negative mg/dL LAB URINALYSIS - AUTOMATED METHOD 02/05/2024 10:24 PM EDT [facility] Blood, Urine Large(A) Negative LAB URINALYSIS - AUTOMATED METHOD 02/05/2024 10:24 PM EDT [facility] Bilirubin, Urine Negative Negative LAB URINALYSIS - AUTOMATED METHOD 02/05/2024 10:24 PM EDT [facility] Urobilinogen, Urine 1.0 0.2 to 1.0 mg/dL LAB URINALYSIS - AUTOMATED METHOD 02/05/2024 10:24 PM EDT [facility] Leukocytes, Urine Large(A) Negative LAB URINALYSIS - AUTOMATED METHOD 02/05/2024 10:24 PM EDT [facility] Nitrite, Urine Negative Negative LAB URINALYSIS - AUTOMATED METHOD 02/05/2024 10:24 PM EDT [facility] RBC, Urine >50(A) 0 to 3 /HPF LAB URINALYSIS - AUTOMATED METHOD 02/05/2024 10:24 PM EDT [facility] WBC, Urine >50(A) 0 to 5 /HPF LAB URINALYSIS - AUTOMATED METHOD 02/05/2024 10:24 PM EDT [facility] Squamous Epithelial Cells 3 - 5 0 to 5 /HPF LAB URINALYSIS - AUTOMATED METHOD 02/05/2024 10:24 PM EDT [facility] Hyaline Casts 0 - 2 0 to 5 /LPF LAB URINALYSIS - AUTOMATED METHOD 02/05/2024 10:24 PM EDT [facility] Bacteria, Urine Present Negative LAB URINALYSIS - AUTOMATED METHOD 02/05/2024 10:24 PM EDT [facility] WBC Clumps Present Absent 02/05/2024 10:24 PM EDT [facility] Urine Urine specimen obtained by clean catch procedure / Unknown Non-blood Collection / Unknown 02/05/2024 8:13 PM EDT 02/05/2024 8:25 PM EDT [facility] - 02/05/2024 10:24 PM EDT Performed by manual method us Selina Brown MD LAB URINE ORDERABLES Final Re sult [facility] [address] [place] [address] * Type and screen (02/05/2024 8:13 PM EDT) ABO/Rh A Positive 02/05/2024 7:53 PM EDT BLOOD BANK Antibody Screen Negative 02/05/2024 7:53 PM EDT BLOOD BANK Specimen Expiration 02/08/2024 23:59 02/05/2024 7:53 PM EDT BLOOD BANK Blood Venous blood specimen / Unknown Venipuncture / Unknown 02/05/2024 8:13 PM EDT 02/05/2024 8:22 PM EDT us Selina Brown MD LAB BLOOD BANK TEST ORDERABLE S Final Result Performing Organization Address [facility]/ZIP Co de Phone Number BLOOD BANK [address] [place] [address], * (ABNORMAL) CMP (02/05/2024 8:13 PM EDT) Glucose, Plasma 203(H) 74 - 99 mg/dL 02/05/2024 8:44 PM EDT [facility] BUN, Plasma 28(H) 8 - 23 mg/dL 02/05/2024 8:44 PM EDT [facility] Creatinine, Plasma 2.25(H) 0.70 - 1.20 mg/dL 02/05/2024 8:44 PM EDT [facility] BUN/Creatinine Ratio 12 02/05/2024 8:44 PM EDT [facility] Sodium, Plasma 137 136 - 145 mmol/L 02/05/2024 8:44 PM EDT [facility] Potassium, Plasma 4.0 3.6 - 4.9 mmol/L 02/05/2024 8:44 PM EDT [facility] Chloride, Plasma 99 97 - 107 mmol/L 02/05/2024 8:44 PM EDT [facility] CO2, Plasma 25 22 - 29 mmol/L 02/05/2024 8:44 PM EDT [facility] Anion Gap 13 6 - 16 mmol/L 02/05/2024 8:44 PM EDT [facility] Total Calcium, Plasma 8.3(L) 8.9 - 10.2 mg/dL 02/05/2024 8:44 PM EDT [facility] Total Protein 7.1 6.3 - 7.9 g/dL 02/05/2024 8:44 PM EDT [facility] Albumin, Plasma 2.9(L) 3.5 - 5.2 g/dL 02/05/2024 8:44 PM EDT [facility] AST, Plasma 17 10 - 50 U/L 02/05/2024 8:44 PM EDT [facility] ALT, Plasma 16 10 - 50 U/L 02/05/2024 8:44 PM EDT [facility] Alkaline Phosphatase, Plasma 52 40 - 115 U/L 02/05/2024 8:44 PM EDT [facility] Total Bilirubin, Plasma 0.6 0.2 - 1.1 mg/dL 02/05/2024 8:44 PM EDT [facility] eGFRcr 29.3 mL/min/1.7 3m*2 02/05/2024 8:44 PM EDT [facility] Comment:Reported eGFRcr in m L/min/1.73m2 is based the CKD-EPI 2020 equation that does not use a race coefficient. Blood Venous blood specimen / Unknown Venipuncture / Unknown 02/05/2024 8:13 PM EDT 02/05/2024 8:25 PM EDT us Selina Brown MD LAB BLOOD ORDERABLES Final Re sult [facility] [address] [place] [address] * (ABNORMAL) CBC w/diff (02/05/2024 8:13 PM EDT) WBC Count 14.01(H) 3.70 - 10.30 10*3/uL LAB HEMATOLOGY METHOD 02/05/2024 8:27 PM EDT [facility] RBC Count 3.59(L) 4.60 - 6.10 10*6/uL LAB HEMATOLOGY METHOD 02/05/2024 8:27 PM EDT [facility] HGB 9.9(L) 13.7 - 17.5 g/dL LAB HEMATOLOGY METHOD 02/05/2024 8:27 PM EDT [facility] HCT 33.2(L) 40.0 - 51.0 % LAB HEMATOLOGY METHOD 02/05/2024 8:27 PM EDT [facility] Platelet Count 185 155 - 369 10*3/uL LAB HEMATOLOGY METHOD 02/05/2024 8:27 PM EDT [facility] MCV 93 79 - 98 fL LAB HEMATOLOGY METHOD 02/05/2024 8:27 PM EDT [facility] MCH 27.6 26.0 - 32.0 pg LAB HEMATOLOGY METHOD 02/05/2024 8:27 PM EDT [facility] MCHC 29.8(L) 30.7 - 35.5 g/dL LAB HEMATOLOGY METHOD 02/05/2024 8:27 PM EDT [facility] RDW 18.5(H) 11.5 - 14.5 % LAB HEMATOLOGY METHOD 02/05/2024 8:27 PM EDT [facility] MPV 9.6 8.8 - 12.5 fL LAB HEMATOLOGY METHOD 02/05/2024 8:27 PM EDT [facility] nRBC 0.0 <=0.0 per 100 WBCs LAB HEMATOLOGY METHOD 02/05/2024 8:27 PM EDT [facility] Differential Type Automated LAB HEMATOLOGY METHOD 02/05/2024 8:27 PM EDT [facility] Neutrophils % 90 % LAB HEMATOLOGY METHOD 02/05/2024 8:27 PM EDT [facility] Lymphocytes % 2 % LAB HEMATOLOGY METHOD 02/05/2024 8:27 PM EDT [facility] Monocytes % 7 % LAB HEMATOLOGY METHOD 02/05/2024 8:27 PM EDT [facility] Eosinophils % 0 % LAB HEMATOLOGY METHOD 02/05/2024 8:27 PM EDT [facility] Basophils % 0 % LAB HEMATOLOGY METHOD 02/05/2024 8:27 PM EDT [facility] Immature Granulocytes % 1 % LAB HEMATOLOGY METHOD 02/05/2024 8:27 PM EDT [facility] Neutrophils Absolute 12.53(H) 1.60 - 6.10 10*3/uL LAB HEMATOLOGY METHOD 02/05/2024 8:27 PM EDT [facility] Lymphocytes Absolute 0.33(L) 1.20 - 3.90 10*3/uL LAB HEMATOLOGY METHOD 02/05/2024 8:27 PM EDT [facility] Monocytes Absolute 1.03(H) 0.30 - 0.90 10*3/uL LAB HEMATOLOGY METHOD 02/05/2024 8:27 PM EDT [facility] Eosinophils Absolute 0.00 0.00 - 0.50 10*3/uL LAB HEMATOLOGY METHOD 02/05/2024 8:27 PM EDT [facility] Basophils Absolute 0.03 0.00 - 0.10 10*3/uL LAB HEMATOLOGY METHOD 02/05/2024 8:27 PM EDT [facility] Immature Granulocytes Absolute 0.09(H) 0.00 - 0.06 10*3/uL LAB HEMATOLOGY METHOD 02/05/2024 8:27 PM EDT [facility] Blood Venous blood specimen / Unknown Venipuncture / Unknown 02/05/2024 8:13 PM EDT 02/05/2024 8:24 PM EDT Narrative [facility] - 02/05/2024 8:27 PM EDT Therapeutic decision making should be based on absolute values, rather than percentages. us Selina Brown MD LAB BLOOD ORDERABLES Final Re sult [facility] [address] [place] [address] documented in this encounter Visit Diagnoses Diagnosis Hydronephrosis with urinary obstruction due to ureteral calculus- Primary Hydronephrosis with urinary obstruction due to ureteral calculus Ureteral stone Calculus of ureter documented in this encounter Admitting Diagnoses Diagnosis Hydronephrosis with urinary obstruction due to ureteral calculus documented in this encounter Administered Medications Inactive Administered Medications - up to 3 most recent administrations Medication Order MAR Action Action Date Dose Rate Site acetaminophen (Tylenol) tablet 1,000 mg 1,000 mg, Oral, Every 6 hours scheduled, First dose on Mon02/06/24 at 0000, Until Discontinued, Routine Given 02/08/2024 1:40 PM EDT 1,000 mg Given 02/08/2024 5:41 AM EDT 1,000 mg Given 02/07/2024 5:25 PM EDT 1,000 mg apixaban (Eliquis) tablet 5 mg 5 mg, Oral, 2 times daily, First dose on Mon02/06/24 at 0900, Until Discontinued, Routine Given 02/08/2024 9:38 AM EDT 5 mg Given 02/07/2024 8:42 PM EDT 5 mg Given 02/07/2024 8:44 AM EDT 5 mg bumetanide (Bumex) tablet 1 mg 1 mg, Oral, 2 times daily (0900 & 1500), First dose on Mon02/06/24 at 0900, Until Discontinued, Routine Given 02/08/2024 9:37 AM EDT 1 mg Given 02/07/2024 3:47 PM EDT 1 mg Given 02/07/2024 8:43 AM EDT 1 mg carvedilol (Coreg) tablet 25 mg 25 mg, Oral, 2 times daily, First dose on Mon02/06/24 at 0900, Until Discontinued, Routine Given 02/08/2024 9:3 7 AM EDT 25 mg Given 02/07/2024 8:42 PM EDT 25 mg Given 02/07/2024 8:43 AM EDT 25 mg cefadroxil (Duricef) capsule 500 mg 500 mg, Oral, 2 times daily, First dose on Mon02/08/24 at 0900, Until Discontinued, Routine Given 02/08/2024 9:37 AM EDT 500 mg cefTRIAXone (Rocephin) vial 1 g 1 g, Intravenous, Every 24 hours, First dose on Mon02/06/24 at 0600, Until Discontinued, Routine Given 02/08/2024 5:50 AM EDT 1 g Given 02/07/2024 5:42 AM EDT 1 g Given 02/06/2024 5:30 AM EDT 1 g docusate sodium (Colace) capsule 250 mg 250 mg, Oral, Daily, First dose on Mon02/06/24 at 0900, Until Discontinued Given 02/07/2024 8:42 AM EDT 250 mg Given 02/06/2024 9:56 AM EDT 250 mg donepezil (Aricept) tablet 10 mg 10 mg, Oral, Nightly, First dose on Mon02/06/24 at 2100, Until Discontinued, Routine Given 02/07/2024 8:4 2 PM EDT 10 mg Given 02/06/2024 9:30 PM EDT 10 mg doxazosin (Cardura) tablet 1 mg 1 mg, Oral, Nightly, First dose on Mon02/06/24 at 2100, Until Discontinued, Routine Given 02/07/2024 8:42 PM EDT 1 mg Given 02/06/2024 9:30 PM EDT 1 mg lactated Ringer's infusion 42 mL/hr, Intravenous, Continuous, Starting on Mon02/05/24 at 2345, Until Mon02/07/24 at 1640, Routine Restarted 02/06/2024 5:09 AM EDT 42 mL/hr 42 mL /hr New Bag 02/06/2024 3:14 AM EDT OXcarbazepine (Trileptal) tablet 300 mg 300 mg, Oral, 2 times daily, First dose on Mon02/06/24 at 0900, Until Discontinued, Routine Given 02/08/2024 9:38 AM EDT 300 mg Given 02/07/2024 8:42 PM EDT 300 mg Given 02/07/2024 8:42 AM EDT 300 mg pantoprazole (Protonix) injection 40 mg 40 mg, Intravenous, Daily, First dose on Mon02/05/24 at 2345, Until Discontinued, Routine Given 02/08/2024 9:3 8 AM EDT 40 mg Given 02/07/2024 8:43 AM EDT 40 mg Given 02/06/2024 9:56 AM EDT 40 mg Povidone-Iodine 5 % swab solution 1 Swab Nasal, Daily, 5 doses, First dose on Mon02/06/24 at 0900, Last dose on Mon02/10/24 at 0900, Routine Given 02/08/2024 9:39 AM EDT 1 Swab Given 02/06/2024 10:04 AM EDT 1 Swab risperiDONE (RisperDAL) tablet 1 mg 1 mg, Oral, Daily, First dose on Mon02/06/24 at 1115, Until Discontinued, Routine Given 02/08/2024 9:37 AM EDT 1 mg Given 02/07/2024 8:42 AM EDT 1 mg Given 02/06/2024 12:36 PM EDT 1 mg risperiDONE (RisperDAL) tablet 2 mg 2 mg, Oral, Nightly, First dose on Mon02/06/24 at 2100, Until Discontinued, Routine Given 02/07/2024 9:33 PM EDT 2 mg Given 02/06/2024 9:29 PM EDT 2 mg senna (Senokot) tablet 8.6 mg 8.6 mg (1 tablet), Oral, Nightly, First dose on Mon02/06/24 at 2100, Until Discontinued Given 02/07/2024 8:42 PM E DT 8.6 mg Given 02/06/2024 9:30 PM EDT 8.6 mg sodium chloride 0.9 % flush 10 mL 10 mL, Intravenous, Every 12 hours, First dose on Mon02/05/24 at 2345, Until Discontinued, Routine Given 02/07/2024 11:18 PM EDT 10 mL Given 02/07/2024 11:22 AM EDT 10 mL Given 02/06/2024 11:54 PM EDT 10 mL sodium chloride 0.9 % flush 10 mL 10 mL, Intravenous, As needed, Starting on Mon02/05/24 at 2334, Until Caryn 02/08/24 at 1733, Routine, line care spironolactone (Aldactone) tablet 25 mg 25 mg, Oral, 2 times daily, First dose on Mon02/06/24 at 0900, Until Discontinued, Routine Given 02/08/2024 9:3 8 AM EDT 25 mg Given 02/07/2024 8:42 PM EDT 25 mg Given 02/07/2024 8:42 AM EDT 25 mg documented in this encounter Active and Recently Administered Medications Times are shown in EDT. Scheduled Medication Order 02/06/2024 02/07/2024 02/08/2024 acetaminophen (Tylenol) tablet 1,000 mg 1,000 mg, Oral, Every 6 hours scheduled, First dose on Mon02/06/24 at 0000, Until Discontinued, Routine 0244 (MAR Hold - Provider: Automatic Transfer Provider - Reason: Patient in procedure)0600 (Dose Auto Held - Provider: Automatic Transfer Provider)0644 (MAR Unhold - Provider: Automatic Transfer Provider)1236 (Given - Provider: Hyacinth Laurent RN)1814 (Given - Provider: Hyacinth Laurent RN)2354 (Given - Provider: Mackenzie Sinclair) 0542 (Given - Provider: Mackenzie Sinclair)1236 (Given - Provider: Lulu Wills)1725 (Given - Provider: Lulu Wills)2315 (Not Given - Provider: Abbey Alvarenga - Reason: Hold for condition: must add comment - Comment: max dose reached in 24 hrs) 0541 (Given - Provider: Abbey Alvarenga)1340 (Given - Provider: Nivia Cuevas, TAMICA) apixaban (Eliquis) tablet 5 mg 5 mg, Oral, 2 times daily, First dose on Mon02/06/24 at 0900, Until Discontinued, Routine 0244 (JUN Hold - Provider: Automatic Transfer Provider - Reason: Patient in procedure)0644 (JUN Unhold - Provider: Automatic Transfer Provider)0956 (Given - Provider: Hyacinth Laurent RN)2130 (Given - Provider: Mackenzie Sinclair) 0844 (Given - Provider: Lulu Wills)2042 (Given - Provider: Abbey Alvarenga) 0938 (Given - Provider: Nivia Cuevas, TAMICA) bumetanide (Bumex) tablet 1 mg 1 mg, Oral, 2 times daily (0900 & 1500), First dose on Mon02/06/24 at 0900, Until Discontinued, Routine 0244 (JUN Hold - Provider: Automatic Transfer Provider - Reason: Patient in procedure)0644 (MAR Unhold - Provider: Automatic Transfer Provider)0956 (Given - Provider: Hyacinth Laurent RN)1529 (Given - Provider: Hyacinth Laurent RN) 0843 (Given - Provider: Lulu Wills)1547 (Given - Provider: Lulu Wills) 0937 (Given - Provider: Nivia Cuevas, TAMICA)1500 (Canceled Entry - Provider: Automatic Discharge Provider - Comment: Automatically canceled at discontinue of medication order) carvedilol (Coreg) tablet 25 mg 25 mg, Oral, 2 times daily, First dose on Mon02/06/24 at 0900, Until Discontinued, Routine 0244 (MAR Hold - Provider: Automatic Transfer Provider - Reason: Patient in procedure)0644 (MAR Unhold - Provider: Automatic Transfer Provider)1004 (Given - Provider: Hyacinth Laurent RN)2128 (Given - Provider: Mackenzie Sinclair) 0843 (Given - Provider: Lulu Wills)204 (Given - Provider: Abbey Alvarenga) 0937 (Given - Provider: Nivia Cuevas RN) cefadroxil (Duricef) capsule 500 mg 500 mg, Oral, 2 times daily, First dose on Mon02/08/24 at 0900, Until Discontinued, Routine 0937 (Given - Provid er: Nivia Cuevas RN) cefTRIAXone (Rocephin) vial 1 g (CANCELED) 1 g, Intravenous, Every 24 hours, First dose on Mon02/06/24 at 0600, Until Discontinued, Routine 0530 (Given - Provider: Maureen Marshall RN) 0542 (Given - Provider: Mackenzie Sinclair) 0550 (Given - Provider: Abbey Q Feolog) docusate sodium (Colace) capsule 250 mg 250 mg, Oral, Daily, First dose on Mon02/06/24 at 0900, Until Discontinued 0244 (JUN Hold - Provider: Automatic Transfer Provider - Reason: Patient in procedure)0644 (JUN Unhold - Provider: Automatic Transfer Provider)0956 (Given - Provider: Hyacinth Laurent RN) 0842 (Given - Provider: Lulu Wills) 0938 (Not Given - Provider: Nivia Cuevas RN - Reason: Order parameters not met) donepezil (Aricept) tablet 10 mg 10 mg, Oral, Nightly, First dose on Mon02/06/24 at 2100, Until Discontinued, Routine 0244 (JUN Hold - Provider: Automatic Transfer Provider - Reason: Patient in procedure)0644 (JUN Unhold - Provider: Automatic Transfer Provider)2129 (Given - Provider: Mackenzie Sinclair) 2041 (Given - Provider: Abbey Alvarenga) doxazosin (Cardura) tablet 1 mg 1 mg, Oral, Nightly, First dose on Mon02/06/24 at 2100, Until Discontinued, Routine 0244 (JUN Hold - Provider: Automatic Transfer Provider - Reason: Patient in procedure)0644 (JUN Unhold - Provider: Automatic Transfer Provider)2129 (Given - Provider: Mackenzie Sinclair) 2041 (Given - Provider: Abbey Q Feolog) OXcarbazepine (Trileptal) tablet 300 mg 300 mg, Oral, 2 times daily, First dose on Mon02/06/24 at 0900, Until Discontinued, Routine 0244 (JUN Hold - Provider: Automatic Transfer Provider - Reason: Patient in procedure)0644 (JUN Unhold - Provider: Automatic Transfer Provider)0956 (Given - Provider: Hyacinth Laurent RN)2128 (Given - Provider: Mackenzie Sinclair) 0842 (Given - Provider: Lulu Wills)2041 (Given - Provider: Abbey Pierre Feolog) 0938 (Given - Provider: Nivia Cuevas RN) pantoprazole (Protonix) injection 40 mg 40 mg, Intravenous, Daily, First dose on Mon02/05/24 at 2345, Until Discontinued, Routine 0003 (Given - Provider: Natalia Coleman)0244 (JUN Hold - Provider: Automatic Transfer Provider - Reason: Patient in procedure)0644 (JUN Unhold - Provider: Automatic Transfer Provider)0956 (Given - Provider: Hyacinth Laurent RN) 0843 (Given - Provider: Lulu Wills) 0938 (Given - Provider: Nivia Cuevas RN) Povidone-Iodine 5 % swab solution 1 Swab Nasal, Daily, 5 doses, First dose on Mon02/06/24 at 0900, Last dose on Mon02/10/24 at 0900, Routine 1004 (Given - Provider: Hyacinth Laurent RN) 0844 (Not Given - Provider: Lulu Wills - Reason: Order parameters not met) 0939 (Given - Provider: Nivia Cuevas RN) risperiDONE (RisperDAL) tablet 1 mg 1 mg, Oral, Daily, First dose on Mon02/06/24 at 1115, Until Discontinued, Routine 1236 (Given - Provider: Hyacinth Laurent RN) 0842 (Given - Provider: Lulu Wills) 0937 (Given - Provider: Nivia Cuevas, TAMICA) risperiDONE (RisperDAL) tablet 2 mg 2 mg, Oral, Nightly, First dose on Mon02/06/24 at 2100, Until Discontinued, Routine 0244 (JUN Hold - Provider: Automatic Transfer Provider - Reason: Patient in procedure)0644 (JUN Unhold - Provider: Automatic Transfer Provider)2128 (Given - Provider: Mackenzie Sinclair) 2132 (Given - Provider: Abbey Q Feolog) senna (Senokot) tablet 8.6 mg 8.6 mg (1 tablet), Oral, Nightly, First dose on Mon02/06/24 at 2100, Until Discontinued 0244 (JUN Hold - Provider: Automatic Transfer Provider - Reason: Patient in procedure)0644 (JUN Unhold - Provider: Automatic Transfer Provider)2129 (Given - Provider: Mackenzie Sinclair) 2041 (Given - Provider: Abbey Q Feolog) sodium chloride 0.9 % flush 10 mL(Linked Group 1) 10 mL, Intravenous, Every 12 hours, First dose on Mon02/05/24 at 2345, Until Discontinued, Routine 0004 (Given - Provider: Natalia Coleman)0244 (JUN Hold - Provider: Automatic Transfer Provider - Reason: Patient in procedure)0644 ([facility] Unhold - Provider: Automatic Transfer Provider)1302 (Given - Provider: Hyacinth Laurent RN)2354 (Given - Provider: Mackenzie Sinclair) 1122 (Given - Provider: Hyacinth Laurent RN)2318 (Given - Provider: Abbey Pierre Feolog) 1046 (Canceled Entry - Provider: Nivia Cuevas, TAMICA) spironolactone (Aldactone) tablet 25 mg 25 mg, Oral, 2 times daily, First dose on Mon02/06/24 at 0900, Until Discontinued, Routine 0244 ([facility] Hold - Provider: Automatic Transfer Provider - Reason: Patient in procedure)0644 ([facility] Unhold - Provider: Automatic Transfer Provider)0956 (Given - Provider: Hyacinth Laurent RN)2128 (Given - Provider: Mackenzie Sinclair) 0842 (Given - Provider: Lulu Wills)2041 (Given - Provider: Abbey Q Feolog) 0938 (Given - Provider: Nivia Cuevas, TAMICA) Continuous Medication Order 02/06/2024 02/07/2024 02/08/2024 lactated Ringer's infusion (CANCELED) 42 mL/hr, Intravenous, Continuous, Starting on Mon02/05/24 at 2345, Until Mon02/07/24 at 1640, Routine 0314 (New Bag - Provider: Sonny Allen DO)0434 (Stopped - Provider: Trenton Maldonado DO)0509 (Restarted - Provider: Maureen Marshall RN - Comment: continued from OR bag due to fluid shortage) PRN Medication Order 02/06/2024 02/07/2024 02/08/2024 iohexol (OMNIPaque) 300 MG/ML injection (CANCELED) As needed, Starting on Mon02/06/24 at 0418, Until Mon02/06/24 at 0435, Routine, Intraprocedure 0418 (Given - Provider: Negro Vargas MD - Comment: On sterile field not used) ondansetron (Zofran) tablet 4 mg 4 mg, Oral, Every 6 hours PRN, Starting on Mon02/05/24 at 2343, Until Caryn 02/08/24 at 1733, Routine, nausea, vomiting 0244 (JUN Hold - Provider: Automatic Transfer Provider - Reason: Patient in procedure)0644 (JUN Unhold - Provider: Automatic Transfer Provider) sodium chloride 0.9 % flush 10 mL(Linked Group 1) 10 mL, Intravenous, As needed, Starting on Mon02/05/24 at 2334, Until Caryn 02/08/24 at 1733, Routine, line care 0244 (JUN Hold - Provider: Automatic Transfer Provider - Reason: Patient in procedure)0644 ([facility] Unhold - Provider: Automatic Transfer Provider) Linked Groups Order Group 1: Insert peripheral IV (COMPLETED) Once, On Mon02/05/24 at 2335, For 1 occurrence And Saline lock IV (COMPLETED) Once, On Mon02/05/24 at 2335, For 1 occurrence And sodium chloride 0.9 % flush 10 mLJump to med 10 mL, Intravenous, Every 12 hours, First dose on Mon02/05/24 at 2345, Until Discontinued, Routine And sodium chloride 0.9 % flush 10 mLJump to med 10 mL, Intravenous, As needed, Starting on Mon02/05/24 at 2334, Until Caryn 02/08/24 at 1733, Routine, line care documented in this encounter Additional Health Concerns Infection Onset 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
--- OUTSIDE RECORDS SUMMARY | 2024-02-27 10:41 | XMS_ITS | Encounter Summary ---
Author Organization Healthcare Address [address] [place] [address] Care Team Providers Care Truck Rental Manager Name Role Phone Jeb Gonzalez MD Primary Care Provider + [phone] Encounter Details Date Type Department Care Team (Late st Contact Info) Description 02/09/2024 Orders Only [facility] [address], [address] [place] [address] John Vargas MD [address] [place] [address] Social History Tobacco Use Types Packs/Day Years [...] place to sleep or slept in a chcf (including now)? No 02/07/2024 Utilities Answer Date [...] EST Hospital Encounter [facility] [address] [place] [phone] John Vargas MD [address] [phone] 02/28/2024 10:40 AM EST Anesthesia Event [facility] [address] [place] [phone] Fransico Mcgarry MD [address] [place] [address] 02/28/2024 10:40 AM EST - 02/28/2024 1:05 PM EST Surgery [facility] [address] [place] [phone] John Vargas MD [address] [phone] URETEROSCOPY, WITH LASER LITHOTRIPSY [[id number] (CPT??)] 05/16/2024 3:45 PM EST Office Visit Medical Office Building Urology [address] [facility], [address] [place] [address] Mark Moore MD [address] [place] [address] Scheduled Procedures Name Priority Associated Diagnoses [...] documented as of this encounter Care Teams Truck Rental Manager Relationship Specialty Start Date End Date Jeb Gonzalez MD [address] [place] [address] PCP - General 10/06/20 documented as of this encounter
--- OUTSIDE RECORDS SUMMARY | 2024-02-27 10:41 | XMS_ITS | Clinical Summary ---
Author Organization Healthcare Address [address] [place] [address] Care Team Providers Care Track Repair Supervisor Name Role Phone Jeb Gonzalez MD Primary Care Provider + [phone] Allergies No known active allergies Medications donepezil (Aricept) 10 MG tablet Take 1 tablet (10 mg) by mouth every night. 09/23/19 21 Active doxazosin (Cardura) 1 MG tablet Take 1 tablet (1 mg) by mouth every night. 10/04/19 21 Active OXcarbazepine (Trileptal) 300 MG tablet Take 1 tablet (300 mg) by mouth 2 (two) times a day. 09/06/19 21 Active pantoprazole (ProtoNix) 40 MG EC tablet Take 1 tablet (40 mg) by mouth 1 (one) time each day. 09/24/19 21 Active risperiDONE (RisperDAL) 1 MG tablet Take 1 tablet (1 mg) by mouth 1 (one) time each day. 09/06/19 21 Active senna (Senokot) 8.6 MG tablet Take 1 tablet (8.6 mg) by mouth Once a day, every 24 hours if needed for constipation. Active ondansetron (Zofran) 4 MG tablet Take 1 tablet (4 mg) by mouth every 6 (six) hours if needed for nausea or vomiting. Active atorvastatin (Lipitor) 10 MG tablet Take 1 tablet (10 mg) by mouth every other day. Nightly Active docusate sodium (Colace) 250 MG capsule Take 1 capsule (250 mg) by mouth 1 (one) time each day. Active losartan (Cozaar) 50 MG tablet Take 1 tablet (50 mg) by mouth 1 (one) time each day. Active polyethylene glycol (Miralax) 17 GM/SCOOP powder Take 17 g by mouth Once a day, every 24 hours if needed. Active risperiDONE (RisperDAL) 2 MG tablet Take 1 tablet (2 mg) by mouth every night. Active bumetanide (Bumex) 1 MG tablet Take 1 tablet (1 mg) by mouth 2 (two) times a day. Active apixaban (Eliquis) 5 MG tablet Take 1 tablet (5 mg) by mouth 2 (two) times a day. Active spironolacton e (Aldactone) 25 MG tablet Take 1 tablet (25 mg) by mouth 2 (two) times a day. Active guaiFENesin (Robitussin) 100 MG/5ML solution Take 15 mL (300 mg) by mouth every 6 (six) hours if needed for cough. Active miconazole (Micotin) 2 % powder Apply 1 Application topically 2 (two) times a day. Breast and Groin Active menthol-zinc oxide (Calmoseptine ) 0.44-20.6 % ointment ointment Apply 1 Application topically 2 (two) times a day. Buttocks and Groin Active triamcinolone (Kenalog) 0.1 % lotion Apply 1 Application topically every 12 (twelve) hours if needed. Bilateral Lower legs for warm/red irritation after Hibiclens solution Active chlorhexidine (Hibiclens) 4 % external solution Apply 1 Application topically every 12 (twelve) hours. Before Triamcinolone application to bilateral lower legs Active carvedilol (Coreg) 25 MG tablet Take 1 tablet (25 mg) by mouth 2 (two) times a day. 60 tablet 11/09/19 24 Active Povidone-Iodi ne (Betadine) 5 % solution Apply topically 2 (two) times a day. To right great toe Active acetaminophen (Tylenol) 500 MG tablet Take 1 tablet (500 mg) by mouth 2 (two) times a day. Joint Pain 2023 Discontinued(E ntered in Error) acetaminophen (Tylenol) 500 MG tablet Take 2 tablets (1,000 mg) by mouth every 6 (six) hours if needed for pain, headaches or fever. 2023 Discontinued(S top Taking at Discharge) acetaminophen (Tylenol) 500 MG tablet Take 2 tablets (1,000 mg) by mouth every 6 (six) hours for 14 days. 100 tablet 02/08/20 24 2023 cefadroxil (Duricef) 500 MG capsule Take 1 capsule (500 mg) by mouth 2 (two) times a day for 5 days. 10 capsule 02/08/20 24 2023 Discontinued doxycycline (Adoxa) 100 MG tablet Take 1 tablet (100 mg) by mouth 2 (two) times a day for 7 days. Take with a full glass of water and do not lie down for at least 30 minutes after 14 tablet 02/09/20 24 2023 Active Problems Problem Noted Date Diagnosed Date Hydronephrosis with renal and ureteral calculus obstruction 11/07/2023 Neuroendocrine tumor 11/16/2017 Pancreatic mass 11/06/2017 Resolved Problems Problem Noted Date Diagnosed Date Resolved Date Hydronephrosis with urinary obstruction due to ureteral calculus 11/08/2023 02/08/2024 Encounters Date Type Department Care Team Description 02/22/2024 10:45 AM EST Pre-Admission Testing [facility] [address] [place] [address] 02/22/2024 Travel 02/14/2024 Telephone [facility] [address] [place] [address] John Dewey MD 02/13/2024 Telephone [facility] [address] [place] [address] John Vargas MD 02/12/2024 Telephone [facility] [address] [place] [address] John Vargas MD 02/09/2024 Orders Only [facility] [address] [place] [address] John Vargas MD 02/06/2024 3:20 AM EDT - 02/06/2024 5:00 AM EDT Surgery [facility] [address] [place] [address] John Vargas MD CYSTOSCOPY, WITH URETERAL STENT INSERTION [[id number] (CPT??)] 02/06/2024 3:14 AM EDT Anesthesia Event [facility] [address] [place] [address] Autumn Farnsworth MD Jager-Roff, Julia C 02/06/2024 Travel 02/05/2024 7:36 PM EDT - 02/08/2024 3:32 PM EDT Hospital Encounter [facility] [address] [facility] [address] [place] [address] Selina Castillo MD Cruz, MD Alicia Yoo, John Feliciano MD Hydronephrosis with urinary obstruction due to ureteral calculus (Primary Dx) Discharge Disposition: Senior Living Facility 02/05/2024 Orders Only External Location [address] [place] [address] Provider, External 02/05/2024 Travel 02/05/2024 Orders Only External Location [address] [place] [address] Provider, External 02/05/2024 Orders Only External Location [address] [place] [address] Provider, External 02/05/2024 Orders Only External Location [address] [place] [address] Provider, External 02/05/2024 Orders Only External Location [address] [place] [address] Provider, External 02/05/2024 Orders Only External Location [address] [place] [address] Provider, External 02/05/2024 Orders Only External Location [address] [place] [address] Provider, External from Last 3 Months Social History Tobacco Use Types Packs/Day Years [...] place to sleep or slept in a skilled nursing (including now)? No 02/07/2024 Utilities Answer Date Recorded In the past 12 months has th e electric, gas, oil, or water company threatened to shut off services in your home? No 02/07/2024 Sex and Gender Information Value Date Recorded Sex Assigned at Not on file Legal Sex Male 6:57 PM EDT Gender Identity Not on file Sexual Orientation Not on file Last Filed Vital Signs Vital Sign Reading [...] Mass Index 36.24 02/07/2024 11:00 AM EDT Plan of Treatment Upcoming Encounters Date Type Department Care Team (Late st Contact Info) Description 02/28/2024 10:40 AM EST Hospital Encounter [facility] [address] [place] [phone] John Vargas MD [address] [phone] 02/28/2024 10:40 AM EST Anesthesia Event [facility] [address] [place] [phone] Fransico Mcgarry MD [address] [place] [address] 02/28/2024 10:40 AM EST - 02/28/2024 1:05 PM EST Surgery [facility] [address] [place] [phone] John Vargas MD [address] [address] URETEROSCOPY, WITH LASER LITHOTRIPSY [[id number] (CPT??)] 05/16/2024 3:45 PM EST Office Visit Medical Office Building [facility] [address] [facility], [address] [place] [address] Mark Moore MD [address] [address] Scheduled Procedures Name Priority Associated Diagnoses Date/Ti me URETEROSCOPY, WITH LASER LITHOTRIPSY Ureteral stone 02/28/2024 10:40 AM EST Health Maintenance Due Date Last Done Comments [facility]-Medicare Annual Wellness (AWV) 1945 [facility]-/Child/Adol SDOH Screenings 1945 [facility]-Zoster Vaccines (1 of 2) 1965 [facility]-Pneumococcal Vaccine: 65+ Years (2 of 2 - PPSV23 or PCV20) 10/16/2017 08/21/2017, 06/01/2016 [id number] Vaccine (3 - Pfizer risk series) 06/12/2020 05/15/2020, 04/25/2020 [facility]-RSV Vaccine: 60+ Years or (1 - 1-dose 75+ series) 2021 [facility]-Depression Screening 10/06/2021 10/06/2020 [facility]-Influenza Vaccine (#1) 12/10/202301/17, 01/27/2015, 01/27/2011, Additional history exists [facility]- SDOH Screenings 08/07/2024 [facility]-Adult SDOH Screenings 08/07/2024 02/07/2024 [facility]-DTaP,Tdap,and Td Vaccines (2 - Td or Tdap) 01/18/2028 01/17/2018, 10/29/2013 FIT Discontinued 06/02/2016 [facility]-Colorectal Cancer Screening Discontinued [facility]-Hepatitis C Screening Completed 11/07/2023 [facility]-Obesity Intervention Completed 11/07/2023 CT Colonography Discontinued Colonoscopy Discontinued FIT-DNA Discontinued FOBT Discontinued Sigmoidoscopy Discontinued [facility]-HIB Vaccines Aged Out No longer e ligible based on patient's age to complete this topic [facility]-HPV Vaccines Aged Out No longer e ligible based on patient's age to complete this topic [facility]-Hepatitis A Vaccines Aged Out No longer eligible based on patient's age to complete this topic [facility]-IPV Vaccines Aged Out No longer e ligible based on patient's age to complete this topic [facility]-Rotavirus Vaccines Aged Out No lo nger eligible based on patient's age to complete this topic Medical Devices Implanted Type Area Java Jsf Developer Device Identifier Shelf Expiration Date Model / Serial / Lot Stent Ureteral Double Pigtail Pos 6fr 24cm - [id number] Implanted:Qty: 1 on 02/06/2024 by John Vargas MD at [facility] [id number] 09/18/2025 [id number] / / [id number] Procedures Procedure Name Priority Date/Time Associated Diagnosis Comments BASIC METABOLIC PANEL, PLASMA STAT 02/08/2024 6:12 AM EDT CBC W/O DIFFERENTIAL STAT 02/08/2024 6:12 AM EDT BASIC METABOLIC PANEL, PLASMA STAT 02/07/2024 5:55 AM EDT CBC W/O DIFFERENTIAL STAT 02/07/2024 5:55 AM EDT PHOSPHORUS, PLASMA Routine 02/06/2024 5: 27 AM EDT MAGNESIUM, PLASMA Routine 02/06/2024 5:2 7 AM EDT BASIC METABOLIC PANEL, PLASMA Routine 02/06/2024 5:27 AM EDT CBC W/O DIFFERENTIAL Routine 02/06/2024 5:27 AM EDT FL LESS THAN 1 HOUR (NON-REPORTABLE) STAT 02/06/2024 4:25 AM EDT URINE CULTURE Routine 02/06/2024 4:02 AM EDT Hydronephrosis with urinary obstruction due to ureteral calculus PB ANESTHESIA PLACEHOLDER Routine 02/06/2024 3:36 AM EDT CA AN ELECTIVE ENDOTRACHEAL AIRWAY Routine 02/06/2024 3:36 AM EDT CA CYSTOSCOPY,INSERT URETERAL STENT 02/06/2024 2:59 AM EDT Hydronephrosis with urinary obstruction due to ureteral calculus Special Needs Cmax LACTATE, VENOUS STAT 02/05/2024 9:21 PM EDT SEND DORY MESSAGE STAT 02/05/2024 8: 13 PM EDT URINALYSIS MICROSCOPIC FOR UA REFLEX STAT 02/05/2024 8:13 PM EDT URINE VELEZ PANEL STAT 02/05/2024 8:13 PM EDT URINALYSIS WITH REFLEX MICROSCOPIC STAT 02/05/2024 8:13 PM EDT TYPE AND SCREEN STAT 02/05/2024 8:13 PM EDT URINALYSIS WITH REFLEX MICROSCOPIC STAT 02/05/2024 8:13 PM EDT COMPREHENSIVE METABOLIC PANEL, PLASMA STAT 02/05/2024 8:13 PM EDT CBC WITH AUTO DIFFERENTIAL STAT 02/05/2024 8:13 PM EDT URINE CULTURE STAT 02/05/2024 8:13 PM EDT XR OUTSIDE IMAGES 02/05/2024 3:[address] MSK OUTSIDE IMAGES 02/05/2024 3:[address] OUTSIDE IMAGES 02/05/2024 3:[address] OUTSIDE IMAGES 02/05/2024 3:[address] OUTSIDE IMAGES 02/05/2024 3:[address] OUTSIDE IMAGES 02/05/2024 3:[address] OUTSIDE IMAGES 02/05/2024 3:1 1 PM EDT HEPATITIS C ANTIBODY - ED W/REFLEX TO HCV QUANT PCR STAT 11/07/2023 10:30 PM EDT from Last 3 Months or Most Recently Relevant to Health Maintenance Results * (ABNORMAL) CBC W/O Differential (02/08/2024 6:12 AM EDT) Only the most recent of3 resultswithin the time period is included. WBC Count 5.65 3.70 - 10.30 10*3/uL LAB HEMATOLOGY METHOD 02/08/2024 6:24 AM EDT [facility] RBC Count 3.18(L) 4.60 - 6.10 10*6/uL LAB HEMATOLOGY METHOD 02/08/2024 6:24 AM EDT [facility] HGB 8.9(L) 13.7 - 17.5 g/dL LAB HEMATOLOGY METHOD 02/08/2024 6:24 AM EDT [facility] HCT 29.0(L) 40.0 - 51.0 % LAB HEMATOLOGY METHOD 02/08/2024 6:24 AM EDT [facility] Platelet Count 156 155 - 369 10*3/uL LAB HEMATOLOGY METHOD 02/08/2024 6:24 AM EDT [facility] MCV 91 79 - 98 fL LAB HEMATOLOGY METHOD 02/08/2024 6:24 AM EDT [facility] MCH 28.0 26.0 - 32.0 pg LAB HEMATOLOGY METHOD 02/08/2024 6:24 AM EDT [facility] MCHC 30.7 30.7 - 35.5 g/dL LAB HEMATOLOGY METHOD 02/08/2024 6:24 AM EDT [facility] RDW 17.9(H) 11.5 - 14.5 % LAB HEMATOLOGY METHOD 02/08/2024 6:24 AM EDT [facility] MPV 10.4 8.8 - 12.5 fL LAB HEMATOLOGY METHOD 02/08/2024 6:24 AM EDT [facility] nRBC 1.2(H) <=0.0 per 100 WBCs LAB HEMATOLOGY METHOD 02/08/2024 6:24 AM EDT [facility] Blood Venous blood specimen / Unknown Venipuncture / Unknown 02/08/2024 6:12 AM EDT 02/08/2024 6:17 AM EDT us John Vargas MD LAB BLOOD ORDERABLES Final Resul t [facility] [address] [place] [address] * (ABNORMAL) Basic metabolic panel (02/08/2024 6:12 AM EDT) Only the most recent of3 resultswithin the time period is included. Glucose, Plasma 144(H) 74 - 99 mg/dL 02/08/2024 6:49 AM EDT [facility] BUN, Plasma 31(H) 8 - 23 mg/dL 02/08/2024 6:49 AM EDT [facility] Creatinine, Plasma 1.77(H) 0.70 - 1.20 mg/dL 02/08/2024 6:49 AM EDT [facility] BUN/Creatinine Ratio 18 02/08/2024 6:49 AM EDT [facility] Sodium, Plasma 134(L) 136 - 145 mmol/L 02/08/2024 6:49 AM EDT [facility] Potassium, Plasma 4.2 3.6 - 4.9 mmol/L 02/08/2024 6:49 AM EDT [facility] Comment:Hemolyzed, result ma y be falsely increased. Chloride, Plasma 100 97 - 107 mmol/L 02/08/2024 6:49 AM EDT [facility] CO2, Plasma 21(L) 22 - 29 mmol/L 02/08/2024 6:49 AM EDT [facility] Anion Gap 13 6 - 16 mmol/L 02/08/2024 6:49 AM EDT [facility] Total Calcium, Plasma 7.7(L) 8.9 - 10.2 mg/dL 02/08/2024 6:49 AM EDT [facility] eGFRcr 39.1 mL/min/1.7 3m*2 02/08/2024 6:49 AM EDT [facility] Comment:Reported eGFRcr in m L/min/1.73m2 is based the CKD-EPI 2020 equation that does not use a race coefficient. Blood Venous blood specimen / Unknown Venipuncture / Unknown 02/08/2024 6:12 AM EDT 02/08/2024 6:17 AM EDT John Vargas MD LAB BLOOD ORDERABLES Final Resul t [facility] [address] [place] [address] * Phosphorus (02/06/2024 5:27 AM EDT) Phosphorus, Plasma 3.9 2.5 - 4.5 mg/dL 02/06/2024 6:07 AM EDT [facility] Blood Venous blood specimen / Unknown Venipuncture / Unknown 02/06/2024 5:27 AM EDT 02/06/2024 5:36 AM EDT us R Vargas MD LAB BLOOD ORDERABLES Final Resul t Performing Organization Address [facility] Co de Phone Number [facility] [address] [place] [address] * Magnesium (02/06/2024 5:27 AM EDT) Magnesium, Plasma 2.1 1.9 - 2.4 mg/dL 02/06/2024 6:07 AM EDT [facility] Blood Venous blood specimen / Unknown Venipuncture / Unknown 02/06/2024 5:27 AM EDT 02/06/2024 5:36 AM EDT us John Vargas MD LAB BLOOD ORDERABLES Final Resul t Performing Organization Address [facility] [place] [address] * FL Less than 1 Hour Intraoperative (02/06/2024 4:25 AM EDT) Narrative IMAGING - 02/06/2024 4:26 AM EDT Images were obtained for surgical purposes. ??See John Vargas's surgical note in the patient's chart for the findings. Result Buddy Vargas MD IMG FLUOROSCOPY PROCEDURES Final Result Performing Organization Address [facility] de Phone Number IMAGING * Urine Culture (02/06/2024 4:02 AM EDT) Only the most recent of2 resultswithin the time period is included. Culture No growth at day 1 02/07/2024 9:22 AM EDT [facility] Urine Right kidney structure / Unknown 02/06/2024 4:02 AM EDT 02/06/2024 7:13 AM EDT Comment:Pre-op diagnosis: Hydronephrosis with urinary obstruction due to ureteral calculus [N13.2] Result Buddy Vargas MD LAB MICROBIOLOGY - GENERAL ORDER MONTY Final Result Performing Organization Address [facility] Co de Phone Number [facility] [address] [place] [address] * CA AN ELECTIVE ENDOTRACHEAL AIRWAY, PB ANESTHESIA PLACEHOLDER (02/06/2024 3:36 AM EDT) Narrative Autumn Farnsworth MD - 02/06/2024 3:36 AM EDT Sonny Allen DO ? 02/06/2024 ??3:41 AM Airway Date/Time: 02/06/2024 3:36 AM Urgency: elective Airway not difficult General Information and Staff Patient location during procedure: OR Anesthesiologist: Autumn Farnsworth MD Resident: Sonny Allen DO Performed: Resident Indications and Patient Condition Indications for airway management: anesthesia Spontaneous Ventilation: absent Preoxygenated: yes Patient position: sniffing Mask difficulty assessment: 3 - difficult mask (inadequate, unstable or two providers) +/- NMBA Final Airway Details Final airway type: endotracheal airway Successful airway: ETT Cuffed: yes Successful intubation technique: video laryngoscopy (LoPro S3) Facilitating devices/methods: intubating stylet Endotracheal tube insertion site: oral Blade: Demetrio Blade size: #3 ETT size (mm): 7.5 Cormack-Lehane Classification: grade IIa - partial view of glottis Placement verified by: chest auscultation and capnometry Measured from: lips ETT to lips (cm): 25 Number of attempts at approach: 1 Additional Comments Atraumatic. No change to dentition. us Autumn Farnsworth MD ANESTHESIA ORDERABLES Final R esult * Lactate, venous (02/05/2024 9:21 PM EDT) Lactate, Venous, Whole Blood 1.7 0.5 - 2.2 mmol/L LAB HEMATOLOGY METHOD 02/05/2024 9:35 PM EDT [facility] Blood Venous blood specimen / Unknown Venipuncture / Unknown 02/05/2024 9:21 PM EDT 02/05/2024 9:31 PM EDT us Selina Castillo MD LAB BLOOD ORDERABLES Final Re sult [facility] [address] [place] [address] * SEND DORY MESSAGE (02/05/2024 8:13 PM EDT) Urine Urine specimen obtained by clean catch procedure / Unknown Non-blood Collection / Unknown 02/05/2024 8:13 PM EDT 02/05/2024 10:13 PM EDT us Selina Castillo MD LAB URINE ORDERABLES Final Re sult Performing Organization Address City/[facility]/ZIP Co de Phone Number [facility] [address] [place] [address] * Urine Velez Panel (02/05/2024 8:13 PM EDT) Extra Sent for Culture 02/06/2024 12:02 AM EDT [facility] Urine Urine specimen obtained by clean catch procedure / Unknown Non-blood Collection / Unknown 02/05/2024 8:13 PM EDT 02/05/2024 10:13 PM EDT us Selina Castillo MD LAB URINE ORDERABLES Final Re sult Performing Organization Address City/[facility]/ZIP Co de Phone Number [facility] [address] [place] [address] * Urinalysis Microscopic Examination (02/05/2024 8:13 PM EDT) Urine Urine specimen obtained by clean catch procedure / Unknown Non-blood Collection / Unknown 02/05/2024 8:13 PM EDT 02/05/2024 8:25 PM EDT us Selina Castillo MD LAB URINE ORDERABLES Final Re sult Performing Organization Address City/[facility] Co de Phone Number [facility] [address] [place] [address] * (ABNORMAL) Urinalysis with reflex microscopic (Culture NOT Included) (02/05/2024 8:13 PM EDT) Color, Urine Yellow LAB URINALYSIS - AUTOMATED METHOD 02/05/2024 10:24 PM EDT [facility] Clarity, Urine Cloudy LAB URINALYSIS - AUTOMATED METHOD 02/05/2024 10:24 PM EDT [facility] Spec [place], Urine 1.018 1.005 - 1.030 LAB URINALYSIS - AUTOMATED METHOD 02/05/2024 10:24 PM EDT [facility] pH, Urine 6.5 4.5 to 8 LAB URINALYSIS - AUTOMATED METHOD 02/05/2024 10:24 PM EDT [facility] Protein, Urine >=300(A) Negative mg/dL LAB URINALYSIS - AUTOMATED METHOD 02/05/2024 10:24 PM EDT [facility] Glucose, Urine Negative Negative mg/dL LAB URINALYSIS - AUTOMATED METHOD 02/05/2024 10:24 PM EDT [facility] Ketones, Urine Negative Negative mg/dL LAB URINALYSIS - AUTOMATED METHOD 02/05/2024 10:24 PM EDT [facility] Blood, Urine Large(A) Negative LAB URINALYSIS - AUTOMATED METHOD 02/05/2024 10:24 PM EDT [facility] Bilirubin, Urine Negative Negative LAB URINALYSIS - AUTOMATED METHOD 02/05/2024 10:24 PM EDT [facility] Urobilinogen, Urine 1.0 0.2 to 1.0 mg/dL LAB URINALYSIS - AUTOMATED METHOD 02/05/2024 10:24 PM EDT [facility] Leukocytes, Urine Large(A) Negative LAB URINALYSIS - AUTOMATED METHOD 02/05/2024 10:24 PM EDT [facility] Nitrite, Urine Negative Negative LAB URINALYSIS - AUTOMATED METHOD 02/05/2024 10:24 PM EDT [facility] RBC, Urine >50(A) 0 to 3 /HPF LAB URINALYSIS - AUTOMATED METHOD 02/05/2024 10:24 PM EDT [facility] WBC, Urine >50(A) 0 to 5 /HPF LAB URINALYSIS - AUTOMATED METHOD 02/05/2024 10:24 PM EDT [facility] Squamous Epithelial Cells 3 - 5 0 to 5 /HPF LAB URINALYSIS - AUTOMATED METHOD 02/05/2024 10:24 PM EDT [facility] Hyaline Casts 0 - 2 0 to 5 /LPF LAB URINALYSIS - AUTOMATED METHOD 02/05/2024 10:24 PM EDT [facility] Bacteria, Urine Present Negative LAB URINALYSIS - AUTOMATED METHOD 02/05/2024 10:24 PM EDT [facility] WBC Clumps Present Absent 02/05/2024 10:24 PM EDT [facility] Urine Urine specimen obtained by clean catch procedure / Unknown Non-blood Collection / Unknown 02/05/2024 8:13 PM EDT 02/05/2024 8:25 PM EDT Narrative [facility] - 02/05/2024 10:24 PM EDT Performed by manual method us Selina Castillo MD LAB URINE ORDERABLES Final Re sult [facility] [address] [place] [address] * (ABNORMAL) CBC w/diff (02/05/2024 8:13 PM EDT) WBC Count 14.01(H) 3.70 - 10.30 10*3/uL LAB HEMATOLOGY METHOD 02/05/2024 8:27 PM EDT [facility] RBC Count 3.59(L) 4.60 - 6.10 10*6/uL LAB HEMATOLOGY METHOD 02/05/2024 8:27 PM EDT [facility] HGB 9.9(L) 13.7 - 17.5 g/dL LAB HEMATOLOGY METHOD 02/05/2024 8:27 PM EDT [facility] HCT 33.2(L) 40.0 - 51.0 % LAB HEMATOLOGY METHOD 02/05/2024 8:27 PM EDT [facility] Platelet Count 185 155 - 369 10*3/uL LAB HEMATOLOGY METHOD 02/05/2024 8:27 PM EDT [facility] MCV 93 79 - 98 fL LAB HEMATOLOGY METHOD 02/05/2024 8:27 PM EDT [facility] MCH 27.6 26.0 - 32.0 pg LAB HEMATOLOGY METHOD 02/05/2024 8:27 PM EDT [facility] MCHC 29.8(L) 30.7 - 35.5 g/dL LAB HEMATOLOGY METHOD 02/05/2024 8:27 PM EDT [facility] RDW 18.5(H) 11.5 - 14.5 % LAB HEMATOLOGY METHOD 02/05/2024 8:27 PM EDT [facility] MPV 9.6 8.8 - 12.5 fL LAB HEMATOLOGY METHOD 02/05/2024 8:27 PM EDT [facility] nRBC 0.0 <=0.0 per 100 WBCs LAB HEMATOLOGY METHOD 02/05/2024 8:27 PM EDT [facility] Differential Type Automated LAB HEMATOLOGY METHOD 02/05/2024 8:27 PM EDT [facility] Neutrophils % 90 % LAB HEMATOLOGY METHOD 02/05/2024 8:27 PM EDT [facility] Lymphocytes % 2 % LAB HEMATOLOGY METHOD 02/05/2024 8:27 PM EDT [facility] Monocytes % 7 % LAB HEMATOLOGY METHOD 02/05/2024 8:27 PM EDT [facility] Eosinophils % 0 % LAB HEMATOLOGY METHOD 02/05/2024 8:27 PM EDT [facility] Basophils % 0 % LAB HEMATOLOGY METHOD 02/05/2024 8:27 PM EDT [facility] Immature Granulocytes % 1 % LAB HEMATOLOGY METHOD 02/05/2024 8:27 PM EDT [facility] Neutrophils Absolute 12.53(H) 1.60 - 6.10 10*3/uL LAB HEMATOLOGY METHOD 02/05/2024 8:27 PM EDT [facility] Lymphocytes Absolute 0.33(L) 1.20 - 3.90 10*3/uL LAB HEMATOLOGY METHOD 02/05/2024 8:27 PM EDT [facility] Monocytes Absolute 1.03(H) 0.30 - 0.90 10*3/uL LAB HEMATOLOGY METHOD 02/05/2024 8:27 PM EDT [facility] Eosinophils Absolute 0.00 0.00 - 0.50 10*3/uL LAB HEMATOLOGY METHOD 02/05/2024 8:27 PM EDT [facility] Basophils Absolute 0.03 0.00 - 0.10 10*3/uL LAB HEMATOLOGY METHOD 02/05/2024 8:27 PM EDT [facility] Immature Granulocytes Absolute 0.09(H) 0.00 - 0.06 10*3/uL LAB HEMATOLOGY METHOD 02/05/2024 8:27 PM EDT [facility] Blood Venous blood specimen / Unknown Venipuncture / Unknown 02/05/2024 8:13 PM EDT 02/05/2024 8:24 PM EDT Narrative [facility] - 02/05/2024 8:27 PM EDT Therapeutic decision making should be based on absolute values, rather than percentages. us Selina Castillo MD LAB BLOOD ORDERABLES Final Re sult Performing Organization Address City/[facility]/ZIP Co de Phone Number [facility] [address] [place] [address] * Type and screen (02/05/2024 8:13 PM EDT) ABO/Rh A Positive 02/05/2024 7:53 PM EDT BLOOD BANK Antibody Screen Negative 02/05/2024 7:53 PM EDT BLOOD BANK Specimen Expiration 02/08/2024 23:59 02/05/2024 7:53 PM EDT BLOOD BANK Blood Venous blood specimen / Unknown Venipuncture / Unknown 02/05/2024 8:13 PM EDT 02/05/2024 8:22 PM EDT us Selina Castillo MD LAB BLOOD BANK TEST ORDERABLE S Final Result Performing Organization Address [facility] Co de Phone Number BLOOD BANK [address] [place] [address], * (ABNORMAL) CMP (02/05/2024 8:13 PM EDT) Glucose, Plasma 203(H) 74 - 99 mg/dL 02/05/2024 8:44 PM EDT [facility] BUN, Plasma 28(H) 8 - 23 mg/dL 02/05/2024 8:44 PM EDT [facility] Creatinine, Plasma 2.25(H) 0.70 - 1.20 mg/dL 02/05/2024 8:44 PM EDT [facility] BUN/Creatinine Ratio 12 02/05/2024 8:44 PM EDT [facility] Sodium, Plasma 137 136 - 145 mmol/L 02/05/2024 8:44 PM EDT [facility] Potassium, Plasma 4.0 3.6 - 4.9 mmol/L 02/05/2024 8:44 PM EDT [facility] Chloride, Plasma 99 97 - 107 mmol/L 02/05/2024 8:44 PM EDT [facility] CO2, Plasma 25 22 - 29 mmol/L 02/05/2024 8:44 PM EDT [facility] Anion Gap 13 6 - 16 mmol/L 02/05/2024 8:44 PM EDT [facility] Total Calcium, Plasma 8.3(L) 8.9 - 10.2 mg/dL 02/05/2024 8:44 PM EDT [facility] Total Protein 7.1 6.3 - 7.9 g/dL 02/05/2024 8:44 PM EDT [facility] Albumin, Plasma 2.9(L) 3.5 - 5.2 g/dL 02/05/2024 8:44 PM EDT [facility] AST, Plasma 17 10 - 50 U/L 02/05/2024 8:44 PM EDT [facility] ALT, Plasma 16 10 - 50 U/L 02/05/2024 8:44 PM EDT [facility] Alkaline Phosphatase, Plasma 52 40 - 115 U/L 02/05/2024 8:44 PM EDT [facility] Total Bilirubin, Plasma 0.6 0.2 - 1.1 mg/dL 02/05/2024 8:44 PM EDT [facility] eGFRcr 29.3 mL/min/1.7 3m*2 02/05/2024 8:44 PM EDT [facility] Comment:Reported eGFRcr in m L/min/1.73m2 is based the CKD-EPI 2020 equation that does not use a race coefficient. Blood Venous blood specimen / Unknown Venipuncture / Unknown 02/05/2024 8:13 PM EDT 02/05/2024 8:25 PM EDT us Selina Castillo MD LAB BLOOD ORDERABLES Final Re sult [facility] [address] [place] [address] * XR OUTSIDE IMAGES (02/05/2024 3:26 PM EDT) Anatomical Region Laterality Modality Radiographic Kelsey ging 02/05/2024 3:26 PM EDT us External Provider IMG XR PROCEDURES Final Result * CT OUTSIDE IMAGES (02/05/2024 3:25 PM EDT) Only the most recent of5 resultswithin the time period is included. Anatomical Region Laterality Modality Computed Tomogra phy 02/05/2024 3:25 PM EDT us External Provider IMG CT PROCEDURES Final Result * CT MSK OUTSIDE IMAGES (02/05/2024 3:25 PM EDT) Anatomical Region Laterality Modality Computed Tomogra phy 02/05/2024 3:25 PM EDT us External Provider IMG CT PROCEDURES Final Result * Hepatitis C Antibody - ED (11/07/2023 10:30 PM EDT) Pathologist [facility] Hepatitis C Antibody Negative Negative 11/07/2023 11:29 PM EDT [facility] Blood Venous blood specimen / Unknown Venipuncture / Unknown 11/07/2023 10:30 PM EDT 11/07/2023 10:46 PM EDT us Ash Pickens MD LAB BLOOD ORDERABLES Final Result Performing Organization Address City/State/[facility] Co de Phone Number [facility] [address] [place] [phone] from Last 3 Months or Most Recently Relevant to Health Maintenance Additional Health Concerns Infection Onset Date Last Indicated 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 02/05/2024 Insurance MEDICARE [place]ICAID-[place] Advance Directives Documents on File Type Date Recorded Patient Legal Administrative Secretary Expl anation Advance Directives and Livin g Will 02/09/2024 9:49 AM Advance Directives and Livin g Will 02/09/2024 9:18 AM Advance Directives and Livin g Will 02/06/2024 7:32 AM Advance Directives and Livin g Will 12/21/2023 2:18 PM * DNR/DNI (Latest Code Status on File) Date Activated Date Inactivated Comments 02/06/2024 11:48 AM 02/08/2024 5:38 PM Question Answer Comments DNR determined on/before admission date? Yes Patient has decision-making capacity? No Healthcare Surrogate: Court-appointed guardian Name of Healthcare Surrogate: state * Full Code Date Activated Date Inactivated Comments 02/05/2024 11:42 PM 02/06/2024 11:48 AM Question Answer Comments Patient has decision-making capacity? No Healthcare Surrogate: Court-appointed guardian Care Teams Track Repair Supervisor Relationship Specialty Start Date End Date Jeb Gonzalez MD [address] [place] [address] PCP - General 10/06/20
--- OUTSIDE RECORDS SUMMARY | 2024-02-27 10:41 | XMS_ITS | Encounter Summary ---
Author Organization Healthcare Address [address] [place] [address] Care Team Providers Care Hydrogen Plant Operator Name Role Phone Jeb Gonzalez MD Primary Care Provider + [phone] Encounter Details Date Type Department Care Team (Late st Contact Info) Description 02/22/2024 10:45 AM EST Pre-Admission Testing [facility] [address], [address] [place] [phone] Anesthesia Record Procedure Summary Procedure Name Responsible Anesthesiologist Anesthesia Start Time Anesthesia Stop Time URETEROSCOPY, WITH LASER LITHOTRIPSY (Right) Events No events on file. Meds * Agents No agents on file. * Blood No blood administrations on file. Lines, Drains, and Airways No LDAs on file. documented in this encounter Social History Tobacco Use Types Packs/Day Years [...] place to sleep or slept in a residential (including now)? No 02/07/2024 Utilities Answer Date Recorded In the past 12 months has th e evocatal, gas, oil, or water company threatened to shut off services in your home? No 02/07/2024 Sex and Gender Information Value Date Recorded Sex Assigned at Not on file Legal Sex Male 6:57 PM EDT Gender Identity Not on file Sexual Orientation Not on file documented as of this encounter Miscellaneous Notes * PAT Evaluation Note - Fransico Mcgarry MD - 02/22/2024 10:45 AM EST Images from the original note were not included. HPI Renan Goncalves is a 78 y.o. male who presents with Pre-op Diagnosis * Ureteral stone [N20.1] now scheduled for URETEROSCOPY, WITH LASER LITHOTRIPSY (Right) with Dr. Vargas on 02/28/24 at [facility]. 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 Social History Tobacco Use Smoking status: Former SURGICAL HISTORY: Past Surgical History: Procedure Laterality Date PANCREAS SURGERY N/A Pancreas surgery from [facility] No Known Allergies MEDICATIONS: Current Outpatient Medications: acetaminophen, Take 2 tablets (1,000 mg) by mouth every 6 (six) hours for 14 days. apixaban, Take 1 tablet (5 mg) by mouth 2 (two) times a day. atorvastatin, Take 1 tablet (10 mg) by mouth every other day. Nightly bumetanide, Take 1 tablet (1 mg) by mouth 2 (two) times a day. carvedilol, Take 1 tablet (25 mg) by mouth 2 (two) times a day. chlorhexidine, Apply 1 Application topically every 12 (twelve) hours. Before Triamcinolone application to bilateral lower legs docusate sodium, Take 1 capsule (250 mg) by mouth 1 (one) time each day. donepezil, Take 1 tablet (10 mg) by mouth every night. doxazosin, Take 1 tablet (1 mg) by mouth every night. guaiFENesin, Take 15 mL (300 mg) by mouth every 6 (six) hours if needed for cough. losartan, Take 1 tablet (50 mg) by mouth 1 (one) time each day. menthol-zinc oxide, Apply 1 Application topically 2 (two) times a day. Buttocks and Groin miconazole, Apply 1 Application topically 2 (two) times a day. Breast and Groin ondansetron, Take 1 tablet (4 mg) by mouth every 6 (six) hours if needed for nausea or vomiting. OXcarbazepine, Take 1 tablet (300 mg) by mouth 2 (two) times a day. pantoprazole, Take 1 tablet (40 mg) by mouth 1 (one) time each day. polyethylene glycol, Take 17 g by mouth Once a day, every 24 hours if needed. Povidone-Iodine, Apply topically 2 (two) times a day. To right great toe risperiDONE, Take 1 tablet (1 mg) by mouth 1 (one) time each day. risperiDONE, Take 1 tablet (2 mg) by mouth every night. senna, Take 1 tablet (8.6 mg) by mouth Once a day, every 24 hours if needed for constipation. spironolactone, Take 1 tablet (25 mg) by mouth 2 (two) times a day. triamcinolone, Apply 1 Application topically every 12 (twelve) hours if needed. Bilateral Lower legs for warm/red irritation after Hibiclens solution Airway History 02/06/2024 Successful airway: ETT Cuffed: yes Successful intubation technique: video laryngoscopy (LoPro S3) Facilitating devices/methods: intubating stylet Endotracheal tube insertion site: oral Blade: Demetrio Blade size: #3 ETT size (mm): 7.5 Cormack-Lehane Classification: grade IIa - partial view of glottis Placement verified by: chest auscultation and capnometry Measured from: lips ETT to lips (cm): 25 Number of attempts at approach: 1 EKG 11/08/2023 ECHO 06/01/2016 Poor quality study. Normal LV size and function. LVEF 55-60%. Grade 1 diastolic dysfunction. Normal right ventricular size and function. Trace mitral regurgitation. Trace tricuspid regurgitation. Valves are not well visualized ROS Anesthesia: history of previous anesthesia. Does not have a history of anesthetic complications, difficult intubation, malignant hyperthermia, pseudocholinesterase deficiency and PONV. Cardiovascular: Patient's ECG reviewed. atrial fibrillation and CHF. Does not have angina or past IN. hypertension:Exercise tolerance is walks less than 50ft. Does not have chest pain. Respiratory: no asthma: no COPD: Has not had an upper respiratory infection in last 30 days. HEENT: Does not have a neck mass. : missing teeth.Does not have chipped teeth or loose teeth. Neurological: no seizures: Did not have a cerebrovascular accident. Neuro additional comments: Alzheimers/Dementia Musculoskeletal: cervical spine limited mobility. Does not have cervical spine instability. Gastrointestinal: Does not have GERD.Does not have gastroparesis. Does not have end stage liver disease or hepatitis. GI/ additional comments: Pancreatic NET Genitourinary: chronic renal disease: CRIDoes not have renal disease. Hematological/Lymphatic: History of no DVT. History of no pulmonary embolism. no history of chemotherapy no history of radiation Does not have MRSA or tuberculosis. Endocrine/Metabolic: does not have diabetes mellitus. Does not have thyroid cancer, thyroid mass/nodule or thyroid disorder. Lab Results Component Value Date WBC 5.65 02/08/2024 HGB 8.9 (L) 02/08/2024 HCT 29.0 (L) 02/08/2024 MCV 91 02/08/2024 PLT 156 02/08/2024 Lab Results Component Value Date GLUCOSE 144 (H) 02/08/2024 BUN 31 (H) 02/08/2024 CREATININE 1.77 (H) 02/08/2024 BCR 18 02/08/2024 NA 134 (L) 02/08/2024 K 4.2 02/08/2024 CL 100 02/08/2024 CO2 21 (L) 02/08/2024 CA 9.1 01/30/2018 ALBUMIN 2.9 (L) 02/05/2024 ALKPHOS 52 02/05/2024 BILITOT 0.6 02/05/2024 No results found for: HGBA1C No results found for: INR , PROTIME Visit Vitals Smoking Status Former Physical Exam Unable to complete: Phone screen Anesthesia Plan ASA 4 Anesthesia technique(s) discussed with the patient/family: general Comment: Discussed with Dr. Dewey. Fransico Mcgarry MD Cosigned by John Dewey MD at 02/22/2024 10:52 AM EST Associated attestation - John Dewey MD - 02/22/2024 10:52 AM EST I discussed the patient with the resident and agree with the findings and plan. * Preprocedure Instructions - Fransico Mcgarry MD - 02/22/2024 10:45 AM EST Home Medication Instructions Current Medications Medication Instructions acetaminophen (Tylenol) 500 MG tablet Take as needed apixaban (Eliquis) 5 MG tablet Take morning of surgery atorvastatin (Lipitor) 10 MG tablet Take morning of surgery bumetanide (Bumex) 1 MG tablet Hold day of surgery carvedilol (Coreg) 25 MG tablet Take morning of surgery docusate sodium (Colace) 250 MG capsule Hold day of surgery donepezil (Aricept) 10 MG tablet Take morning of surgery doxazosin (Cardura) 1 MG tablet Take morning of surgery losartan (Cozaar) 50 MG tablet Hold day of surgery ondansetron (Zofran) 4 MG tablet Take as needed OXcarbazepine (Trileptal) 300 MG tablet Take morning of surgery pantoprazole (ProtoNix) 40 MG EC tablet Take morning of surgery polyethylene glycol (Miralax) 17 GM/SCOOP powder Hold day of surgery risperiDONE (RisperDAL) 1 MG tablet Take morning of surgery risperiDONE (RisperDAL) 2 MG tablet Take as needed senna (Senokot) 8.6 MG tablet Hold day of surgery spironolactone (Aldactone) 25 MG tablet Hold day of surgery triamcinolone (Kenalog) 0.1 % lotion Take as needed General Preoperative Instructions You will be called the business day before surgery with your arrival time No food after midnight the night before surgery. You can drink clear liquids up to 2 hours prior to arrival. Please do not try to get all your hydration in 2 hours prior to arrival. Start the day before surgery drinking more than you usually would.After midnight, you can have clear liquids only (water, apple juice, Gatorade) up to 2 hours prior to arrival. No coffee or tea. No alcohol or smoking prior to surgery Arrive on time to avoid delays Parking/Registration procedure explained You MUST have a responsible adult available for transport to and from hospital Visitation policy for the day of surgery reviewed Bring insurance card, photo ID, along with power of ad terminal makeup operator, guardianship or advanced directives if applicable Do not bring money, jewelry or other valuables Hibiclens bathing instructions reviewed if applicable Notify surgeon of fever, illness, any changes or if you decide not to have surgery Diabetes Instructions (If applicable) Take diabetes medication as instructed You may have up to 4 ounces of apple juice 2 hours prior to arrival for surgery for low glucose documented in this encounter Plan of Treatment Upcoming Encounters Date Type Department Care Team (Late st Contact Info) Description 02/28/2024 10:40 AM EST Hospital Encounter [facility] [address] [place] [address] John Vargas MD [address] [facility] [address] [place] [address] 02/28/2024 10:40 AM EST Anesthesia Event [facility] [address] [place] [address] Fransico Mcgarry MD [address] [place] [address] 02/28/2024 10:40 AM EST - 02/28/2024 1:05 PM EST Surgery [facility] [address] [place] [address] John Vargas MD [address] [address] URETEROSCOPY, WITH LASER LITHOTRIPSY [[id number] (CPT??)] 05/16/2024 3:45 PM EST Office Visit Medical Office Building Urology [address] [facility], [address] [place] [address] Mark Moore MD [address] [address] Scheduled Procedures Name Priority Associated [...] documented as of this encounter Care Teams Hydrogen Plant Operator Relationship Specialty Start Date End Date Jeb Gonzalez MD [address] [place] [address] PCP - General 10/06/20 documented as of this encounter
--- OUTSIDE RECORDS SUMMARY | 2024-02-27 10:41 | XMS_ITS | Encounter Summary ---
Author Organization Healthcare Address [address] [place] [address] Care Team Providers Care Auto Clocks Repairer Name Role Phone Jeb Gonzalez MD Primary Care Provider + [phone] Encounter Details Date Type Department Care Team (Late st Contact Info) Description 02/13/2024 Telephone [place] [facility] [address], [address]nd [place] [address] John Vargas MD [address] [place] [address] Social History Tobacco Use Types [...] place to sleep or slept in a fpc (including now)? No 02/07/2024 Utilities Answer Date [...] as of this encounter Miscellaneous Notes * Telephone Encounter - Jazmyn Rodriguez - 02/13/2024 3:00 PM EST Called and spoke to nurse ( Lennie ) at [facility] in [place] who was caring for patient- arranged surgery with her - gave an estimated arrival time so she may arrange transportation for patient - discussed surgery directions with her and she was given my direct phone number to callshould she have any further questions prior to surgery documented in this encounter Plan of Treatment Upcoming Encounters Date Type Department Care Team (Late st Contact Info) Description 02/28/2024 10:40 AM EST Hospital Encounter [facility] [address] [place] [address] John Vargas MD [address] [facility] [address] [place] [address] 02/28/2024 10:40 AM EST Anesthesia Event [facility] [address] [place] [address] Fransico Mcgarry MD [address] [place] [address] 02/28/2024 10:40 AM EST - 02/28/2024 1:05 PM EST Surgery [facility] [address] [place] [address] John Vargas MD [address] [address] URETEROSCOPY, WITH LASER LITHOTRIPSY [[id number] (CPT??)] 05/16/2024 3:45 PM EST Office Visit Medical Office Building Urology [address] [facility], [address] [place] [address] Mark Moore MD [address] [address] Scheduled Procedures Name Priority Associated [...] documented as of this encounter Care Teams Auto Clocks Repairer Relationship Specialty Start Date End Date Jeb Gonzalez MD [address] [place] [address] PCP - General 10/06/20 documented as of this encounter
--- OUTSIDE RECORDS SUMMARY | 2024-02-27 10:41 | XMS_ITS | Encounter Summary ---
Author Organization Healthcare Address [address] [place] [address] Care Team Providers Care Telephone Assembler Name Role Phone Jeb Gonzalez MD Primary Care Provider + [phone] Encounter Details Date Type Department Care Team (Late st Contact Info) Description 02/14/2024 Telephone [facility] [address], [address] [place] [address] John Dewey MD [address] [place] [address] Social History Tobacco Use Types [...] place to sleep or slept in a [place] (including now)? No 02/07/2024 Utilities Answer Date [...] EST Hospital Encounter [facility] [address] [place] [phone] John Vargas MD [address] [employer] [address] [address] 02/28/2024 10:40 AM EST Anesthesia Event [facility] [address] [place] [address] Fransico Mcgarry MD [address] [place] [address] 02/28/2024 10:40 AM EST - 02/28/2024 1:05 PM EST Surgery [facility] [address] [place] [phone] John Vargas MD [address] [address] URETEROSCOPY, WITH LASER LITHOTRIPSY [[id number] (CPT??)] 05/16/2024 3:45 PM EST Office Visit Medical Office Building Urology [address] [facility], [address] [place] [address] Mark Moore MD [address] [place] [address] Scheduled Procedures Name Priority Associated [...] documented as of this encounter Care Teams Telephone Assembler Relationship Specialty Start Date End Date Jeb Gonzalez MD [address] [place] [address] PCP - General 10/06/20 documented as of this encounter
--- OUTSIDE RECORDS SUMMARY | 2024-02-27 10:41 | XMS_ITS | Encounter Summary ---
Author Organization Healthcare Address [address] [place] [address] Care Team Providers Care Animal Science Instructor Name Role Phone Jeb Gonzalez MD Primary Care Provider + [phone] Encounter Details Date Type Department Care Team (Late st Contact Info) Description 02/12/2024 Telephone [facility] [address], [address] [place] [address] John Vargas MD [address] [place] [address] Social History Tobacco Use Types [...] place to sleep or slept in a retirement (including now)? No 02/07/2024 Utilities Answer Date [...] EST Hospital Encounter [facility] [address] [place] [phone] John Vargas MD [address] [address] 02/28/2024 10:40 AM EST Anesthesia Event [facility] [address] [place] [phone] Fransico Mcgarry MD [address] [place] [address] 02/28/2024 10:40 AM EST - 02/28/2024 1:05 PM EST Surgery [facility] [address] [place] [phone] John Vargas MD [address] [phone] URETEROSCOPY, WITH LASER LITHOTRIPSY [[id number] (CPT??)] 05/16/2024 3:45 PM EST Office Visit Medical Office Building Urology [address] [facility], [address] [place] [address] Mark Moore MD [address] [place] [address] Scheduled Procedures Name Priority Associated [...] documented as of this encounter Care Teams Animal Science Instructor Relationship Specialty Start Date End Date Jeb Gonzalez MD [address] [place] [address] PCP - General 10/06/20 documented as of this encounter
--- OUTSIDE RECORDS SUMMARY | 2024-02-27 10:42 | XMS_ITS | Encounter Summary ---
Author Organization Healthcare Address [address] [place] [address] Care Team Providers Care Chute Loader Name Role Phone Jeb Gonzalez MD Primary Care Provider + [phone] Encounter Details Date Type Department Care Team (Late st Contact Info) Description 02/05/2024 Orders Only External Location [address] [place] [address] Provider, External Social History Tobacco Use Types Packs/Day Years [...] place to sleep or slept in a senior care (including now)? No 02/07/2024 Utilities Answer Date [...] EST Hospital Encounter [facility] [address] [place] [phone] John Vargas MD [address] [address] 02/28/2024 10:40 AM EST Anesthesia Event [facility] [address] [place] [phone] Fransico Mcgarry MD [address] [place], [place] [phone] 02/28/2024 10:40 AM EST - 02/28/2024 1:05 PM EST Surgery [facility] [address] [place] [phone] John Vargas MD [address] [phone] URETEROSCOPY, WITH LASER LITHOTRIPSY [[id number] (CPT??)] 05/16/2024 3:45 PM EST Office Visit Medical Office Building Urology [address] [facility], [address] [place] [address] Mark Moore MD [address] [place] [address] Scheduled Procedures Name Priority Associated Diagnoses Date/Ti me URETEROSCOPY, WITH LASER LITHOTRIPSY Ureteral stone 02/28/2024 10:40 AM EST documented as of this encounter Procedures Procedure Name Priority Date/Time Associated Diagnosis Comments CT MSK OUTSIDE IMAGES 02/05/2024 3:25 PM EDT documented in this encounter Results * CT MSK OUTSIDE IMAGES (02/05/2024 3:25 PM EDT) Anatomical Region Laterality Modality Computed Tomogra phy 02/05/2024 3:25 PM EDT us External Provider IMG CT PROCEDURES Final Result documented in this encounter Visit Diagnoses Not on filedocumented [...] documented as of this encounter Care Teams Chute Loader Relationship Specialty Start Date End Date Jeb Gonzalez MD [address] [place] [address] PCP - General 10/06/20 documented as of this encounter
--- OUTSIDE RECORDS SUMMARY | 2024-02-27 10:42 | XMS_ITS | Encounter Summary ---
Author Organization Healthcare Address [address] [place] [address] Care Team Providers Care Check Grader Name Role Phone Jeb Gonzalez MD Primary Care Provider + [phone] Reason for Visit * Reason Comments Abdominal Pain * Auth/Cert (Routine) Specialty Diagnoses / Procedures Referred By Roni cosme Referred To Contact Diagnoses Hydronephrosis with urinary obstruction due to ureteral calculus sepsis, UTI, 12 mm obstructing stone Michelle Vargas MD [address] [address] Phone: tel: fax: [facility] Emergency Department [address] [place] [address] Phone: tel: Referral ID Status Reason Start Date Expiration Date Visits Re quested Visits Authorized [id number] 1 1 Encounter Details Date Type Department Care Team (Late st Contact Info) Description 02/06/2024 3:20 AM EDT - 02/06/2024 5:00 AM EDT Surgery [facility] A OPERATING ROOM [address] [place] [address] Michelle Vargas MD [address] [address] CYSTOSCOPY, WITH URETERAL STENT INSERTION [[id number] (CPT??)] Surgery Details Date/Time Status Location OR Service Patient Class Case Class Case Type Trauma Case? 02/06/2024 3:20 AM Posted [facility] OR [facility] OR 03 Urology Emergency B-Urgent: to be done within 4 hours Panel 1 Procedure LRB Anes Op Region Wound Class Comments CYSTOSCOPY, WITH URETERAL ST ENT INSERTION Right General Surgeon Surgeon Role Service Panel Michelle Vargas MD Primary Urology 1 Negro Vargas MD Resident - Assisting 1 Special Needs Cmax documented in this encounter Social History Tobacco [...] place to sleep or slept in a custodial (including now)? No 02/07/2024 Utilities Answer Date [...] Sign Reading Time Taken Comments Blood Pressure 129/72 02/06/2024 5:00 AM EDT Pulse 113 02/06/2024 5:00 AM EDT Temperature 37.3 ??C (99.1 ??F) 02/06/2024 4:45 AM ED T Respiratory Rate 25 02/06/2024 5:00 AM EDT Oxygen Saturation 97% 02/06/2024 5:00 AM EDT Inhaled Oxygen Concentration - - Weight 171 kg (377 lb 13.9 oz) 02/05/2024 7:43 P M EDT Height - - Body Mass Index 36.24 02/07/2024 11:00 AM [...] confirm your location ahead of your appointment) [facility] Urology Department Clinic at [facility] [address], 2nd Floor, Wing [address], [address] [place] [address] Clinic After Hours [facility] Medical Office Building Urology Clinic [address] [place] [address] Clinic After Hours [facility] Multidisciplinary Urology Clinic [address] 1st [place] [address] Clinic documented in this encounter Medications at [...] Note Izabel Goncalves 78 y.o. male CSN: [id number] Admission: 02/05/2024 7:36 PM Primary Problem: Hydronephrosis with urinary obstruction due to ureteral calculus Primary Tool Maker Bench: Primary Caregiver: (facility staff) Assistance Available at Discharge: Availability of Care Givers (#Hours): 24 hours Family/Tool Maker Bench(s) Willingness Assessed to care for patient at home: Yes Family/Tool Maker Bench(s) Readiness Assessed to care for patient at home: Yes Housing Circumstances-Z Codes: Housing Circumstances (select all that apply): Low Income (101-300% Federal Poverty Guidlines) - Z596 Patient Referred to Financial or Community Resources: Discharge Facility/Level of Care Needs: Discharge Facility/Level of Care Needs: -Custodial care Patient's Choice of Community Agency(s): Patient/Family Anticipated Services at Transition: Patient/Family Anticipated Services at Transition: case finishing machine adjuster DME/Equipment Needed after Discharge: Equipment Currently Used at Home: none Equipment Needed After Discharge: none Readmission Within the Last 30 Days: Readmission Within the Last 30 Days: no previous admission in last 30 days Medicare Documentation: Follow-up: Fantasma Otero MD [address] [facility] [address] [facility] Phone; [phone] X [phone] Follow up Pt is a resident. Discharge [...] has been cancelled for today at 3:30, pickling grader at bedside. Discharge summary sent to facility via fax # [phone]. Pt is a resident at [facility], number for report [phone] given to [email or web address]. POC reviewed with primary team. Refer to primary team's discharge note for details. Medically readyto discharge today. Patient agrees to dc to facility today and agrees with above DC plan. In??s PERICO Ramirez, commercial lines manager * Discharge Summary - Micheal Delgado MD - 02/08/2024 7:09 AM EDT Images from the original note were not included. Hospitalization Admit Date/Time: 02/05/2024 7:36 PM Admitting Attending: Michelle Vargas Discharge Date: 02/08/24 Discharge Attending Physician: Michelle Vargas MD PCP name and Address: Jeb Gonzalez MD [address] [place] [address] / [place] [address] Referring provider name and address: Fantasma Otero [place] [address] Chief Concern, Brief History of Present Illness, and Hospital Course Izabel Goncalves is a 78 y.o. male has a past medical history of dementia, hypertension, AFib, heart failure, MDD, schizophrenia, and pancreatic NET who presented to [facility] with sepsis and altered mental status due [...] Your Medications These medications were sent to [facility] [place], [place] - [address] , [facility] [address] acetaminophen 500 MG tablet cefadroxil 500 MG [...] confirm your location ahead of your appointment) [facility] Urology Department Clinic at [facility] [address], [facility], [address] [place] [address] Clinic After Hours [facility] Medical Office Building Urology Clinic [address] [place] [address] Clinic After Hours [facility] Multidisciplinary Urology Clinic [address] 1st [place] [address] Clinic Outpatient Follow-Up Future Appointments Date Time Provider Department Center 05/16/2024 3:45 PM Mark Mooer MD [facility] MOB Test Results Pending [...] schizophrenia, and pancreatic NET who presented to [facility] with sepsis and altered mental status due [...] Symptoms Outcome: Ongoing, Progressing * Consults - Liilbeth Erwin RD - 02/07/2024 11:32 AM EDT Adult Nutrition Evaluation Note Izabel Goncalves 78 y.o. male CSN: [id number] Room/Bed 239/239A Nutrition evaluation type: assessment Reason [...] Date PANCREAS SURGERY N/A Pancreas surgery from [facility] Social history: Social History Tobacco Use Smoking [...] 42 mL/hr, Last Rate: 42 mL/hr (02/06/24 0509) PRN medications: ondansetron, [COMPLETED] Insert peripheral IV [...] 11; monitor appropriateness of po intake -Obtain RADIO REPAIRER DOMESTIC evaluation if indicated -Therapeutically recommend continuing unrestricted [...] Note Izabel Goncalves 78 y.o. male CSN: [id number] Admission: 02/05/2024 7:36 PM Primary Problem: Hydronephrosis with urinary obstruction due to ureteral calculus Escalator Attendant reviewed chart and spoke with staff at [facility] to complete this Initial Case Management Assessment. PCP: Jeb Gonzalez MD Emergency Contact: Extended Emergency Contact Information Primary Emergency Contact: Marva Velez Mobile Relation: Legal Guardian Preferred language: Montserratian Assembly Adjuster needed? No Insurance: Primary Visit Coverage Payer Plan Sponsor Code Group Number Group Name MEDICARE MEDICARE A & B Primary Visit Coverage Subscriber Subscriber ID Subscriber Name Subscriber SSN Subscriber Address [id number] IZABEL GONCALVES [id number] [address] Secondary Visit Coverage Payer Plan Sponsor Code Group Number Group Name MEDICAID-[place] MEDICAID TRADITIONAL Secondary Visit Coverage Subscriber Subscriber ID Subscriber Name Subscriber [facility] Subscriber Address [id number] IZABEL GONCALVES [id number] [address] [id number] Patient information: Primary Caregiver: (facility staff) Support System: Immediate family, Other (Comment) (facility staff) Daily Living Activities: Functional Status: Totally dependent Living Arrangements: Fpc Type of Residence: detention/residential care [address] [address] Current DME: Income Information: Income Source: Disabled [...] and no preference. Living Will/Advance Directive/Power of Commercial Loan Underwriter /Guardian: None reported. Additional Comments: Based on pt's reported household income he meets 300% FPG. Caliber stretcher transport has been cancelled for today and set up for tomorrow at 3:30. Pt is a resident at [facility] [phone]. In??PERICO Thibodeaux, commercial lines manager Social Determinants of Health Food Insecurity: [...] Delgado MD - 02/07/2024 6:56 AM EDT [facility] Urology Inpatient Progress Note Primary Attending: Michelle [...] infection. Patient is a deal of [facility] and reportedly had worsening AMS including being found unresponsive, diaphoresis, clammy skin. At [facility], UA was positive for TNTC WBC, [...] 02/07/24 at 11:00 am for bariatric stretcher, pickling grader at bedside. * Progress Notes - Micheal Delgado MD - 02/06/2024 8:03 AM EDT [facility] Urology Inpatient Progress Note Primary Attending: Michelle [...] urinary obstruction due to ureteral calculus ASSESSMENT: Izabeljunior Goncalves is a 78 y.o. male with PMH dementia, HTN, Afib, HF, MDD, schizophrenia, pancreatic NET presenting with 12 mm right sided obstructing stone with upstream hydronephrosis and UA concerningfor infection. Patient is a deal of the [facility] and reportedly had worsening AMS including being found unresponsive, diaphoresis, clammy skin. At [facility], UA was positive for TNTC WBC, [...] Postoperative Diagnosis: Same Surgeon: Michelle Vargas MD Hospitalist Nocturnist Physician Surgeon: Negro Vargas MD Intraoperative Findings: Cystourethroscopy [...] labs Negro Vargas MD Urology PGY-2 Pager: [phone] Cosigned by Michelle Vargas MD at 02/06/2024 [...] MD Consult ordered by: Selina Brown MD [facility] Urology Consult Note 02/05/24 Service Requesting Consultation: EM CC: right sided obstructing stone, UTI, sepsis HPI: Izabel Goncalves is a 78 y.o. male with PMH dementia, HTN, Afib, HF, MDD, schizophrenia, pancreatic NET presenting with 12 mm right sided obstructing stone with upstream hydronephrosis and UA concerningfor infection. Patient is a deal of [facility] and reportedly had worsening AMS including being found unresponsive,diaphoresis, clammy skin, prompting a comprehensive work up. At [facility]SH ([facility]), his UA waspositive for TNTC WBC, trace [...] Date PANCREAS SURGERY N/A Pancreas surgery from [facility] Family History: reviewed No family history on [...] infection. Patient is a deal of the [facility] and reportedly had worsening AMS including being found unresponsive, diaphoresis, clammy skin. At [facility], UA was positivefor TNTC WBC, trace [...] ureteral stent placement - consent obtained via concrete saw operator guardian (Inga Steele), consent in chart - NPO, mIVF - Preoperative IV abx, continue broad spectrum IV abx post-procedure, tailored to culture sensitivities when available - consult to Medicine to assist with management of co-morbidities - monitor UOP, trend Cr - follow urine culture - restart appropriate home meds Negro Vargas MD Urology PGY-2 Pager: [phone] Cosigned by Michelle Vargas MD at 02/06/2024 [...] Date PANCREAS SURGERY N/A Pancreas surgery from [facility] No family history on file. Tobacco Use [...] is 1. GCS motor subscore is 5. Nancy Coma Scale Score: 12 ED Course & [...] Sips with meds Diet effective midnight Acknowledged DAQUAN VARGASNCER H 02/05/24 2342 Vital Signs (Every 4 hours) Every 4 hours Acknowledged DAQUAN VARGASNCER H 02/05/24 2342 Check pulse oximetry (Every 4 hours) Every 4 hours Acknowledged VARGAS NEGRO H 02/05/24 2342 Intake and Output (Every 4 hours) Every 4 hours Acknowledged VARGAS, NEGRO 02/05/24 2342 Do Not Give Nicotine Replacement Until discontinued Acknowledged NII NEGRO 02/05/24 2342 Full code Continuous Acknowledged DAQUAN VARGASNCER 02/05/24 234 Reason for No VTE Prophylaxis Once Completed VARGAS, NEGRO 02/05/24 234 Admit to inpatient Once Acknowledged DAQUAN VARGASNCER 02/05/24 2342 Mobility Orders Until discontinued Acknowledged NII NEGRO 02/05/24 2342 Out of Bed Until discontinued Acknowledged NII NEGRO 02/05/24 2342 Notify Provider Until discontinued Acknowledged DAQUAN VARGASNCER 02/05/24 2342 Insert peripheral IV Once Placed in And Linked Group Completed NII NEGRO H 02/05/24 234 Saline lock IV Once Placed in And Linked Group Completed VARGAS, NEGRO 02/05/24 234 Do NOT transfer patient to [facility] without chief resident or attending apporval Until discontinued Acknowledged NII NEGRO 02/05/24 232 Skin prep Once Completed NII NEGRO 02/05/24 2323 Hibiclens Scrub Until discontinued Comments: Shower/scrub evening before and morning of procedure; include 5 minutes scrub each time to operative site with chlorhexidine gluconate 4% (Hibiclens). Acknowledged ROVERTO VARGASER H 02/05/24 232 Void concrete saw operator to OR Once Completed NII NEGRO 02/05/24 232 Case Request Operating Room: CYSTOSCOPY, WITH URETERAL STENT INSERTION Once Completed ROVERTO VARGASER H 02/05/24 2317 Consult to Hospital Medicine Once Specialty: Internal Medicine Provider: (Not yet assigned) Acknowledged TRENTON MALIK 10/2221 Urinalysis Microscopic Examination Once Final result SELINA BROWN 02/05/242208 Consult to Urology Once Specialty: Urology Provider: (Not yet assigned) Completed TRENTON MALIK 02/05/242112 Lactate, venous Once Final result TRENTON MALIK 02/05/241951 CBC w/diff STAT Final result SELINA BRWON 02/05/241951 CMP STAT Final result SELINA BROWN [...] [WE] ED Course User Index [WE] Trenton Malik, Social Determinates of Health Risks (including Economic [...] 02/05/2024 7:20 PM EDT Pt transferred from [facility] for sepsis and a 12 mm right kidney stone they foundtoday. Pt has PMHX of dementia and schizophrenia so has confusion at baseline. Pt does respond to painful stimuli. documented in this encounter Plan of Treatment Upcoming Encounters Date Type Department Care Team (Late st Contact Info) Description 02/28/2024 10:40 AM [facility] Hospital Encounter [facility] OPERATING ROOM [address] [place] [address] Michelle Vargas MD [address] [facility] [address] [place] [id number] 02/28/2024 10:40 AM EST Anesthesia Event [facility] OPERATING ROOM [address] [place] [address] Fransico Mcgarry MD [address] [place] [address] 02/28/2024 10:40 AM EST - 02/28/2024 1:05 PM EST Surgery [facility] OPERATING ROOM [address] [place] [address] Michelle Vargas MD [address] [place] [address] URETEROSCOPY, WITH LASER LITHOTRIPSY [[id number] (CPT??)] 05/16/2024 3:45 PM EST Office Visit Medical Office Building Urology [address] [facility], [address] [place] [address] Mark Moore MD [address] [place] [address] Scheduled Procedures Name Priority Associated Diagnoses [...] with urinary obstruction due to ureteral calculus NM CYSTOSCOPY,INSERT URETERAL STENT 02/06/2024 2:59 AM EDT [...] - 99 mg/dL 02/08/2024 6:49 AM EDT [facility] BUN, Plasma 31(H) 8 - 23 mg/dL 02/08/2024 6:49 AM EDT [facility] Creatinine, Plasma 1.77(H) 0.70 - 1.20 mg/dL 02/08/2024 6:49 AM EDT [facility] BUN/Creatinine Ratio 18 02/08/2024 6:49 AM EDT [facility] Sodium, Plasma 134(L) 136 - 145 mmol/L 02/08/2024 6:49 AM EDT [facility] Potassium, Plasma 4.2 3.6 - 4.9 mmol/L 02/08/2024 6:49 AM EDT [facility] Comment:Hemolyzed, result ma y be falsely increased. Chloride, Plasma 100 97 - 107 mmol/L 02/08/2024 6:49 AM EDT [facility] CO2, Plasma 21(L) 22 - 29 mmol/L 02/08/2024 6:49 AM EDT [facility] Anion Gap 13 6 - 16 mmol/L 02/08/2024 6:49 AM EDT [facility] Total Calcium, Plasma 7.7(L) 8.9 - 10.2 mg/dL 02/08/2024 6:49 AM EDT [facility] eGFRcr 39.1 mL/min/1.7 3m*2 02/08/2024 6:49 AM EDT [facility] Comment:Reported eGFRcr in m L/min/1.73m2 is based the CKD-EPI 2020 equation that does not use a race coefficient. Blood Venous blood specimen / Unknown Venipuncture / Unknown 02/08/2024 6:12 AM EDT 02/08/2024 6:17 AM EDT us Michelle Vargas MD LAB BLOOD ORDERABLES Final Resul t [facility] [address] [place] [address] * (ABNORMAL) CBC W/O Differential (02/08/2024 6:12 AM EDT) WBC Count 5.65 3.70 - 10.30 10*3/uL LAB HEMATOLOGY METHOD 02/08/2024 6:24 AM EDT [facility] RBC Count 3.18(L) 4.60 - 6.10 10*6/uL LAB HEMATOLOGY METHOD 02/08/2024 6:24 AM EDT [facility] HGB 8.9(L) 13.7 - 17.5 g/dL LAB HEMATOLOGY METHOD 02/08/2024 6:24 AM EDT [facility] HCT 29.0(L) 40.0 - 51.0 % LAB HEMATOLOGY METHOD 02/08/2024 6:24 AM EDT [facility] Platelet Count 156 155 - 369 10*3/uL LAB HEMATOLOGY METHOD 02/08/2024 6:24 AM EDT [facility] MCV 91 79 - 98 fL LAB HEMATOLOGY METHOD 02/08/2024 6:24 AM EDT [facility] MCH 28.0 26.0 - 32.0 pg LAB HEMATOLOGY METHOD 02/08/2024 6:24 AM EDT [facility] MCHC 30.7 30.7 - 35.5 g/dL LAB HEMATOLOGY METHOD 02/08/2024 6:24 AM EDT [facility] RDW 17.9(H) 11.5 - 14.5 % LAB HEMATOLOGY METHOD 02/08/2024 6:24 AM EDT [facility] MPV 10.4 8.8 - 12.5 fL LAB HEMATOLOGY METHOD 02/08/2024 6:24 AM EDT [facility] nRBC 1.2(H) <=0.0 per 100 WBCs LAB HEMATOLOGY METHOD 02/08/2024 6:24 AM EDT [facility] Blood Venous blood specimen / Unknown Venipuncture / Unknown 02/08/2024 6:12 AM EDT 02/08/2024 6:17 AM EDT us Michelle Vargas MD LAB BLOOD ORDERABLES Final Resul t [facility] [address] [place] [address] * (ABNORMAL) Basic metabolic panel (02/07/2024 5:55 AM EDT) Glucose, Plasma 126(H) 74 - 99 mg/dL 02/07/2024 6:32 AM EDT [facility] BUN, Plasma 36(H) 8 - 23 mg/dL 02/07/2024 6:32 AM EDT [facility] Creatinine, Plasma 2.44(H) 0.70 - 1.20 mg/dL 02/07/2024 6:32 AM EDT [facility] BUN/Creatinine Ratio 15 02/07/2024 6:32 AM EDT [facility] Sodium, Plasma 145 136 - 145 mmol/L 02/07/2024 6:32 AM EDT [facility] Potassium, Plasma 3.9 3.6 - 4.9 mmol/L 02/07/2024 6:32 AM EDT [facility] Chloride, Plasma 108(H) 97 - 107 mmol/L 02/07/2024 6:32 AM EDT [facility] CO2, Plasma 25 22 - 29 mmol/L 02/07/2024 6:32 AM EDT [facility] Anion Gap 12 6 - 16 mmol/L 02/07/2024 6:32 AM EDT [facility] Total Calcium, Plasma 8.6(L) 8.9 - 10.2 mg/dL 02/07/2024 6:32 AM EDT [facility] eGFRcr 26.6 mL/min/1.7 3m*2 02/07/2024 6:32 AM EDT [facility] Comment:Reported eGFRcr in m L/min/1.73m2 is based the CKD-EPI 2020 equation that does not use a race coefficient. Blood Venous blood specimen / Unknown Venipuncture / Unknown 02/07/2024 5:55 AM EDT 02/07/2024 6:00 AM EDT us Michelle Vargas MD LAB BLOOD ORDERABLES Final Resul t [facility] [address] [place] [address] * (ABNORMAL) CBC W/O Differential (02/07/2024 5:55 AM EDT) WBC Count 5.16 3.70 - 10.30 10*3/uL LAB HEMATOLOGY METHOD 02/07/2024 6:06 AM EDT [facility] RBC Count 3.16(L) 4.60 - 6.10 10*6/uL LAB HEMATOLOGY METHOD 02/07/2024 6:06 AM EDT [facility] HGB 8.8(L) 13.7 - 17.5 g/dL LAB HEMATOLOGY METHOD 02/07/2024 6:06 AM EDT [facility] HCT 29.5(L) 40.0 - 51.0 % LAB HEMATOLOGY METHOD 02/07/2024 6:06 AM EDT [facility] Platelet Count 170 155 - 369 10*3/uL LAB HEMATOLOGY METHOD 02/07/2024 6:06 AM EDT [facility] MCV 93 79 - 98 fL LAB HEMATOLOGY METHOD 02/07/2024 6:06 AM EDT [facility] MCH 27.8 26.0 - 32.0 pg LAB HEMATOLOGY METHOD 02/07/2024 6:06 AM EDT [facility] MCHC 29.8(L) 30.7 - 35.5 g/dL LAB HEMATOLOGY METHOD 02/07/2024 6:06 AM EDT [facility] RDW 18.4(H) 11.5 - 14.5 % LAB HEMATOLOGY METHOD 02/07/2024 6:06 AM EDT [facility] MPV 10.5 8.8 - 12.5 fL LAB HEMATOLOGY METHOD 02/07/2024 6:06 AM EDT [facility] nRBC 0.0 <=0.0 per 100 WBCs LAB HEMATOLOGY METHOD 02/07/2024 6:06 AM EDT [facility] Blood Venous blood specimen / Unknown Venipuncture / Unknown 02/07/2024 5:55 AM EDT 02/07/2024 6:00 AM EDT us Michelle Vargas MD LAB BLOOD ORDERABLES Final Resul t [facility] [address] [place] [address] * Phosphorus (02/06/2024 5:27 AM EDT) Phosphorus, Plasma 3.9 2.5 - 4.5 mg/dL 02/06/2024 6:07 AM EDT [facility] Blood Venous blood specimen / Unknown Venipuncture / Unknown 02/06/2024 5:27 AM EDT 02/06/2024 5:36 AM EDT us Michelle Vargas MD LAB BLOOD ORDERABLES Final Resul t Performing Organization Address City/[facility]/ZIP Co de Phone Number [facility] [address] [place] [address] * Magnesium (02/06/2024 5:27 AM EDT) Magnesium, Plasma 2.1 1.9 - 2.4 mg/dL 02/06/2024 6:07 AM EDT [facility] Blood Venous blood specimen / Unknown Venipuncture / Unknown 02/06/2024 5:27 AM EDT 02/06/2024 5:36 AM EDT us Michelle Vargas MD LAB BLOOD ORDERABLES Final Resul t Performing Organization Address City/[facility] Co de Phone Number [facility] [address] [place] [address] * (ABNORMAL) Basic metabolic panel (02/06/2024 5:27 AM EDT) Glucose, Plasma 173(H) 74 - 99 mg/dL 02/06/2024 6:07 AM EDT [facility] BUN, Plasma 29(H) 8 - 23 mg/dL 02/06/2024 6:07 AM EDT [facility] Creatinine, Plasma 2.32(H) 0.70 - 1.20 mg/dL 02/06/2024 6:07 AM EDT [facility] BUN/Creatinine Ratio 13 02/06/2024 6:07 AM EDT [facility] Sodium, Plasma 143 136 - 145 mmol/L 02/06/2024 6:07 AM EDT [facility] Potassium, Plasma 4.3 3.6 - 4.9 mmol/L 02/06/2024 6:07 AM EDT [facility] Chloride, Plasma 105 97 - 107 mmol/L 02/06/2024 6:07 AM EDT [facility] CO2, Plasma 24 22 - 29 mmol/L 02/06/2024 6:07 AM EDT [facility] Anion Gap 14 6 - 16 mmol/L 02/06/2024 6:07 AM EDT [facility] Total Calcium, Plasma 8.2(L) 8.9 - 10.2 mg/dL 02/06/2024 6:07 AM EDT [facility] eGFRcr 28.2 mL/min/1.7 3m*2 02/06/2024 6:07 AM EDT [facility] Comment:Reported eGFRcr in m L/min/1.73m2 is based the CKD-EPI 2020 equation that does not use a race coefficient. Blood Venous blood specimen / Unknown Venipuncture / Unknown 02/06/2024 5:27 AM EDT 02/06/2024 5:36 AM EDT us Michelle Vargas MD LAB BLOOD ORDERABLES Final Resul t [facility] [address] [place] [address] * (ABNORMAL) CBC W/O Differential (02/06/2024 5:27 AM EDT) WBC Count 10.60(H) 3.70 - 10.30 10*3/uL LAB HEMATOLOGY METHOD 02/06/2024 5:47 AM EDT [facility] RBC Count 3.40(L) 4.60 - 6.10 10*6/uL LAB HEMATOLOGY METHOD 02/06/2024 5:47 AM EDT [facility] HGB 9.5(L) 13.7 - 17.5 g/dL LAB HEMATOLOGY METHOD 02/06/2024 5:47 AM EDT [facility] HCT 31.5(L) 40.0 - 51.0 % LAB HEMATOLOGY METHOD 02/06/2024 5:47 AM EDT [facility] Platelet Count 182 155 - 369 10*3/uL LAB HEMATOLOGY METHOD 02/06/2024 5:47 AM EDT [facility] MCV 93 79 - 98 fL LAB HEMATOLOGY METHOD 02/06/2024 5:47 AM EDT [facility] MCH 27.9 26.0 - 32.0 pg LAB HEMATOLOGY METHOD 02/06/2024 5:47 AM EDT [facility] MCHC 30.2(L) 30.7 - 35.5 g/dL LAB HEMATOLOGY METHOD 02/06/2024 5:47 AM EDT [facility] RDW 18.5(H) 11.5 - 14.5 % LAB HEMATOLOGY METHOD 02/06/2024 5:47 AM EDT [facility] MPV 10.1 8.8 - 12.5 fL LAB HEMATOLOGY METHOD 02/06/2024 5:47 AM EDT [facility] nRBC 0.0 <=0.0 per 100 WBCs LAB HEMATOLOGY METHOD 02/06/2024 5:47 AM EDT [facility] Blood Venous blood specimen / Unknown Venipuncture / Unknown 02/06/2024 5:27 AM EDT 02/06/2024 5:39 AM EDT Michelle Vargas MD LAB BLOOD ORDERABLES Final Resul t [facility] [address] [place] [address] * [place] Less than 1 Hour Intraoperative (02/06/2024 4:25 AM EDT) Narrative IMAGING - 02/06/2024 4:26 AM EDT Images were obtained for surgical purposes. ??See Michelle Vargas's surgical note in the patient's chart for the findings. us Michelle Vargas MD IMG FLUOROSCOPY PROCEDURES Final Result IMAGING * Urine Culture (02/06/2024 4:02 AM EDT) Culture No growth at day 1 02/07/2024 9:22 AM EDT [facility] Urine Right kidney structure / Unknown 02/06/2024 4:02 AM EDT 02/06/2024 7:13 AM EDT Comment:Pre-op diagnosis: Hydronephrosis with urinary obstruction due to ureteral calculus [N13.2] Michelle Vargas MD LAB MICROBIOLOGY - GENERAL ORDER MONTY Final Result Performing Organization Address [facility] Co de Phone Number [facility] [address] [place] [address] * Lactate, venous (02/05/2024 9:21 PM EDT) Lactate, Venous, Whole Blood 1.7 0.5 - 2.2 mmol/L LAB HEMATOLOGY METHOD 02/05/2024 9:35 PM EDT [facility] Blood Venous blood specimen / Unknown Venipuncture / Unknown 02/05/2024 9:21 PM EDT 02/05/2024 9:31 PM EDT Selina Brown MD LAB BLOOD ORDERABLES Final Re sult Performing Organization Address City/[facility] Co de Phone Number [facility] [address] [place] [address] * SEND DORY MESSAGE (02/05/2024 8:13 PM EDT) Urine Urine specimen obtained by clean catch procedure / Unknown Non-blood Collection / Unknown 02/05/2024 8:13 PM EDT 02/05/2024 10:13 PM EDT Result [facility] Selina Brown MD LAB URINE ORDERABLES Final Re sult Performing Organization Address [facility] Co de Phone Number [facility] [address] [place] [address] * (ABNORMAL) Urine Culture (02/05/2024 8:13 PM EDT) Culture 10,000 - 100,000 CFU/mL Klebsiella pneumoniae ESBL(AA) LAURY 02/09/2024 12:56 PM EDT [facility] Comment: This isolate has been identified using the FDA Approved [employer] [place] System Edited result: Previously reported as [...] MICROBIOLOGY - GENERAL OR DERABLES Final Result [facility] [address] [place] [address] * Urinalysis Microscopic Examination (02/05/2024 8:13 PM EDT) Urine Urine specimen obtained by clean catch procedure / Unknown Non-blood Collection / Unknown 02/05/2024 8:13 PM EDT 02/05/2024 8:25 PM EDT us Selina Brown MD LAB URINE ORDERABLES Final Re sult Performing Organization Address City/[facility]/ZIP Co de Phone Number [facility] [address] [place] [address] * Urine Velez Panel (02/05/2024 8:13 PM EDT) Extra Sent for Culture 02/06/2024 12:02 AM EDT [facility] Urine Urine specimen obtained by clean catch procedure / Unknown Non-blood Collection / Unknown 02/05/2024 8:13 PM EDT 02/05/2024 10:13 PM EDT us Selina Brown MD LAB URINE ORDERABLES Final Re sult Performing Organization Address [facility] de Phone Number [facility] [address] [place] [address] * (ABNORMAL) Urinalysis with reflex microscopic (Culture NOT Included) (02/05/2024 8:13 PM EDT) Color, Urine Yellow LAB URINALYSIS - AUTOMATED METHOD 02/05/2024 10:24 PM EDT [facility] Clarity, Urine Cloudy LAB URINALYSIS - AUTOMATED METHOD 02/05/2024 10:24 PM EDT [facility] Spec [place], Urine 1.018 1.005 - 1.030 LAB URINALYSIS - AUTOMATED METHOD 02/05/2024 10:24 PM EDT [facility] pH, Urine 6.5 4.5 to 8 LAB URINALYSIS - AUTOMATED METHOD 02/05/2024 10:24 PM EDT [facility] Protein, Urine >=300(A) Negative mg/dL LAB URINALYSIS - AUTOMATED METHOD 02/05/2024 10:24 PM EDT [facility] Glucose, Urine Negative Negative mg/dL LAB URINALYSIS - AUTOMATED METHOD 02/05/2024 10:24 PM EDT [facility] Ketones, Urine Negative Negative mg/dL LAB URINALYSIS - AUTOMATED METHOD 02/05/2024 10:24 PM EDT [facility] Blood, Urine Large(A) Negative LAB URINALYSIS - AUTOMATED METHOD 02/05/2024 10:24 PM EDT [facility] Bilirubin, Urine Negative Negative LAB URINALYSIS - AUTOMATED METHOD 02/05/2024 10:24 PM EDT [facility] Urobilinogen, Urine 1.0 0.2 to 1.0 mg/dL LAB URINALYSIS - AUTOMATED METHOD 02/05/2024 10:24 PM EDT [facility] Leukocytes, Urine Large(A) Negative LAB URINALYSIS - AUTOMATED METHOD 02/05/2024 10:24 PM EDT [facility] Nitrite, Urine Negative Negative LAB URINALYSIS - AUTOMATED METHOD 02/05/2024 10:24 PM EDT [facility] RBC, Urine >50(A) 0 to 3 /HPF LAB URINALYSIS - AUTOMATED METHOD 02/05/2024 10:24 PM EDT [facility] WBC, Urine >50(A) 0 to 5 /HPF LAB URINALYSIS - AUTOMATED METHOD 02/05/2024 10:24 PM EDT [facility] Squamous Epithelial Cells 3 - 5 0 to 5 /HPF LAB URINALYSIS - AUTOMATED METHOD 02/05/2024 10:24 PM EDT [facility] Hyaline Casts 0 - 2 0 to 5 /LPF LAB URINALYSIS - AUTOMATED METHOD 02/05/2024 10:24 PM EDT [facility] Bacteria, Urine Present Negative LAB URINALYSIS - AUTOMATED METHOD 02/05/2024 10:24 PM EDT [facility] WBC Clumps Present Absent 02/05/2024 10:24 PM EDT [facility] Urine Urine specimen obtained by clean catch procedure / Unknown Non-blood Collection / Unknown 02/05/2024 8:13 PM EDT 02/05/2024 8:25 PM EDT [facility] - 02/05/2024 10:24 PM EDT Performed by manual method us Selina Brown MD LAB URINE ORDERABLES Final Re sult [facility] [address] [place] [address] * Type and screen (02/05/2024 8:13 PM [...] BLOOD BANK TEST ORDERABLE S Final Result BLOOD BANK [address] [place] [address], * (ABNORMAL) CMP (02/05/2024 8:13 PM EDT) Glucose, Plasma 203(H) 74 - 99 mg/dL 02/05/2024 8:44 PM EDT [facility] BUN, Plasma 28(H) 8 - 23 mg/dL 02/05/2024 8:44 PM EDT [facility] Creatinine, Plasma 2.25(H) 0.70 - 1.20 mg/dL 02/05/2024 8:44 PM EDT [facility] BUN/Creatinine Ratio 12 02/05/2024 8:44 PM EDT [facility] Sodium, Plasma 137 136 - 145 mmol/L 02/05/2024 8:44 PM EDT [facility] Potassium, Plasma 4.0 3.6 - 4.9 mmol/L 02/05/2024 8:44 PM EDT [facility] Chloride, Plasma 99 97 - 107 mmol/L 02/05/2024 8:44 PM EDT [facility] CO2, Plasma 25 22 - 29 mmol/L 02/05/2024 8:44 PM EDT [facility] Anion Gap 13 6 - 16 mmol/L 02/05/2024 8:44 PM EDT [facility] Total Calcium, Plasma 8.3(L) 8.9 - 10.2 mg/dL 02/05/2024 8:44 PM EDT [facility] Total Protein 7.1 6.3 - 7.9 g/dL 02/05/2024 8:44 PM EDT [facility] Albumin, Plasma 2.9(L) 3.5 - 5.2 g/dL 02/05/2024 8:44 PM EDT [facility] AST, Plasma 17 10 - 50 U/L 02/05/2024 8:44 PM EDT [facility] ALT, Plasma 16 10 - 50 U/L 02/05/2024 8:44 PM EDT [facility] Alkaline Phosphatase, Plasma 52 40 - 115 U/L 02/05/2024 8:44 PM EDT [facility] Total Bilirubin, Plasma 0.6 0.2 - 1.1 mg/dL 02/05/2024 8:44 PM EDT [facility] eGFRcr 29.3 mL/min/1.7 3m*2 02/05/2024 8:44 PM EDT [facility] Comment:Reported eGFRcr in m L/min/1.73m2 is based the CKD-EPI 2020 equation that does not use a race coefficient. Blood Venous blood specimen / Unknown Venipuncture / Unknown 02/05/2024 8:13 PM EDT 02/05/2024 8:25 PM EDT us Selina Brown MD LAB BLOOD ORDERABLES Final Re sult [facility] [address] [place] [address] * (ABNORMAL) CBC w/diff (02/05/2024 8:13 PM EDT) WBC Count 14.01(H) 3.70 - 10.30 10*3/uL LAB HEMATOLOGY METHOD 02/05/2024 8:27 PM EDT [facility] RBC Count 3.59(L) 4.60 - 6.10 10*6/uL LAB HEMATOLOGY METHOD 02/05/2024 8:27 PM EDT [facility] HGB 9.9(L) 13.7 - 17.5 g/dL LAB HEMATOLOGY METHOD 02/05/2024 8:27 PM EDT [facility] HCT 33.2(L) 40.0 - 51.0 % LAB HEMATOLOGY METHOD 02/05/2024 8:27 PM EDT [facility] Platelet Count 185 155 - 369 10*3/uL LAB HEMATOLOGY METHOD 02/05/2024 8:27 PM EDT [facility] MCV 93 79 - 98 fL LAB HEMATOLOGY METHOD 02/05/2024 8:27 PM EDT [facility] MCH 27.6 26.0 - 32.0 pg LAB HEMATOLOGY METHOD 02/05/2024 8:27 PM EDT [facility] MCHC 29.8(L) 30.7 - 35.5 g/dL LAB HEMATOLOGY METHOD 02/05/2024 8:27 PM EDT [facility] RDW 18.5(H) 11.5 - 14.5 % LAB HEMATOLOGY METHOD 02/05/2024 8:27 PM EDT [facility] MPV 9.6 8.8 - 12.5 fL LAB HEMATOLOGY METHOD 02/05/2024 8:27 PM EDT [facility] nRBC 0.0 <=0.0 per 100 WBCs LAB HEMATOLOGY METHOD 02/05/2024 8:27 PM EDT [facility] Differential Type Automated LAB HEMATOLOGY METHOD 02/05/2024 8:27 PM EDT [facility] Neutrophils % 90 % LAB HEMATOLOGY METHOD 02/05/2024 8:27 PM EDT [facility] Lymphocytes % 2 % LAB HEMATOLOGY METHOD 02/05/2024 8:27 PM EDT [facility] Monocytes % 7 % LAB HEMATOLOGY METHOD 02/05/2024 8:27 PM EDT [facility] Eosinophils % 0 % LAB HEMATOLOGY METHOD 02/05/2024 8:27 PM EDT [facility] Basophils % 0 % LAB HEMATOLOGY METHOD 02/05/2024 8:27 PM EDT [facility] Immature Granulocytes % 1 % LAB HEMATOLOGY METHOD 02/05/2024 8:27 PM EDT [facility] Neutrophils Absolute 12.53(H) 1.60 - 6.10 10*3/uL LAB HEMATOLOGY METHOD 02/05/2024 8:27 PM EDT [facility] Lymphocytes Absolute 0.33(L) 1.20 - 3.90 10*3/uL LAB HEMATOLOGY METHOD 02/05/2024 8:27 PM EDT [facility] Monocytes Absolute 1.03(H) 0.30 - 0.90 10*3/uL LAB HEMATOLOGY METHOD 02/05/2024 8:27 PM EDT [facility] Eosinophils Absolute 0.00 0.00 - 0.50 10*3/uL LAB HEMATOLOGY METHOD 02/05/2024 8:27 PM EDT [facility] Basophils Absolute 0.03 0.00 - 0.10 10*3/uL LAB HEMATOLOGY METHOD 02/05/2024 8:27 PM EDT [facility] Immature Granulocytes Absolute 0.09(H) 0.00 - 0.06 10*3/uL LAB HEMATOLOGY METHOD 02/05/2024 8:27 PM EDT [facility] Blood Venous blood specimen / Unknown Venipuncture / Unknown 02/05/2024 8:13 PM EDT 02/05/2024 8:24 PM EDT Narrative [facility] - 02/05/2024 8:27 PM EDT Therapeutic decision making should be based on absolute values, rather than percentages. us Selina Brown MD LAB BLOOD ORDERABLES Final Re sult [facility] [address] [place] [address] documented in this encounter Visit Diagnoses Diagnosis Hydronephrosis with urinary obstruction due to ureteral calculus- Primary Hydronephrosis with urinary obstruction due to ureteral calculus Hydronephrosis with urinary obstruction due to ureteral [...] Given 02/08/2024 9:37 AM EDT 500 mg docusate sodium (Colace) capsule 250 mg 250 [...] Given 02/06/2024 9:30 PM EDT 1 mg iohexol (OMNIPaque) 300 MG/ML injection As needed, Starting on Mon02/06/24 at 0418, Until Mon02/06/24 at 0435, Routine, Intraprocedure Given 02/06/2024 4:18 AM EDT 100 mL OXcarbazepine (Trileptal) tablet 300 mg 300 mg, [...] Lulu Wills)2315 (Not Given - Provider: Abbey Pierre Feolog - Reason: Hold for condition: must add comment - Comment: max dose reached in 24 hrs) 0541 (Given - Provider: Abbey Cordobaolog)1340 (Given - Provider: Nivia Cuevas, TAMICA) apixaban [...] Provider: Lulu Wills)2042 (Given - Provider: Abbey Cordobaolog) 0938 (Given - Provider: Nivai Cuevas RN) bumetanide (Bumex) tablet 1 mg 1 mg, [...] Lulu Wills) 0937 (Given - Provider: Nivia Cuevas RN)1500 (Canceled Entry - Provider: Automatic Discharge Provider - Comment: Automatically canceled at discontinue of medication order) carvedilol (Coreg) tablet 25 mg 25 mg, Oral, 2 times daily, First dose on Mon02/06/24 at 0900, Until Discontinued, Routine 0244 (JUN Hold - Provider: Automatic Transfer Provider - Reason: Patient in procedure)0644 (JUN Unhold - Provider: Automatic Transfer Provider)1004 (Given - Provider: Hyacinth Laurent RN)212 (Given - Provider: Mackenzie Sinclair) 0843 (Given - Provider: Lulu Wills)2042 (Given - Provider: Abbey Pierre Feolog) 0937 (Given - Provider: Nivia Cuevas RN) [...] on Mon02/06/24 at 0900, Until Discontinued 0244 ([facility] Hold - Provider: Automatic Transfer Provider - Reason: Patient in procedure)06 ([facility] Unhold - Provider: Automatic Transfer Provider)0956 (Given - Provider: Hyacinth Laurent RN) 0842 (Given - Provider: Lulu Wills) 0938 (Not Given - Provider: Nivia Cuevas RN - Reason: Order parameters not met) donepezil (Aricept) tablet 10 mg 10 mg, Oral, Nightly, First dose on Mon02/06/24 at 2100, Until Discontinued, Routine 0244 ([facility] Hold - Provider: Automatic Transfer Provider - Reason: Patient in procedure)0644 ([facility] Unhold - Provider: Automatic Transfer Provider)2129 (Given - Provider: Mackenzie Sinclair) 2041 (Given - Provider: Abbey Q Feolog) doxazosin (Cardura) tablet 1 mg 1 mg, Oral, Nightly, First dose on Mon02/06/24 at 2100, Until Discontinued, Routine 0244 ([facility] Hold - Provider: Automatic Transfer Provider - Reason: Patient in procedure)0644 ([facility] Unhold - Provider: Automatic Transfer Provider)2129 (Given - Provider: Mackenzie Sinclair) 2041 (Given - Provider: Abbey Q Feolog) OXcarbazepine (Trileptal) tablet 300 mg 300 mg, Oral, 2 times daily, First dose on Mon02/06/24 at 0900, Until Discontinued, Routine 0244 (MAR Hold - Provider: Automatic Transfer Provider - Reason: Patient in procedure)0644 ([facility] Unhold - Provider: Automatic Transfer Provider)0956 (Given - Provider: Hyacinth Laurent RN)2128 (Given - Provider: Mackenzie Sinclair) 0842 (Given - Provider: Lulu Wills)2041 (Given - Provider: Abbey Pierre Feolog) 0938 (Given - Provider: Nivia Cuevas, TAMICA) pantoprazole (Protonix) injection 40 mg 40 mg, Intravenous, Daily, First dose on Mon02/05/24 at 2345, Until Discontinued, Routine 0003 (Given - Provider: Natalia Coleman)0244 (JUN Hold - Provider: Automatic Transfer Provider - Reason: Patient in procedure)0644 (JUN Unhold - Provider: Automatic Transfer Provider)0956 (Given - Provider: Hyacinth Laurent RN) 0843 (Given - Provider: Lulu Wills) 0938 (Given - Provider: Nivia Cuevas, TAMICA) Povidone-Iodine 5 % swab solution 1 Swab Nasal, Daily, 5 doses, First dose on Mon02/06/24 at 0900, Last dose on Mon02/10/24 at 0900, Routine 1004 (Given - Provider: Hyacinth Laurent RN) 0844 (Not Given - Provider: Lulu Wills - Reason: Order parameters not met) 0939 (Given - Provider: Nivia Cuevas, TAMICA) risperiDONE (RisperDAL) tablet 1 mg 1 mg, [...] Mackenzie Sinclair) 2132 (Given - Provider: Abbey Peirre Feolog) senna (Senokot) tablet 8.6 mg 8.6 mg (1 tablet), Oral, Nightly, First dose on Mon02/06/24 at 2100, Until Discontinued 0244 (JUN Hold - Provider: Automatic Transfer Provider - Reason: Patient in procedure)0644 (JUN Unhold - Provider: Automatic Transfer Provider)2130 (Given - Provider: Mackenzie Sinclair) 204 (Given - Provider: Abbey Alvarenga) sodium chloride 0.9 % flush 10 mL(Linked Group 1) 10 mL, Intravenous, Every 12 hours, First dose on Mon02/05/24 at 2345, Until Discontinued, Routine 0004 (Given - Provider: Natalia Coleman)0244 (JUN Hold - Provider: Automatic Transfer Provider - Reason: Patient in procedure)0644 (JUN Unhold - Provider: Automatic Transfer Provider)1302 (Given - Provider: Hyacinth Laurent RN)2354 (Given - Provider: Mackenzie Sinclair) 1122 (Given - Provider: Hyacinth Laurent RN)2318 (Given - Provider: Abbey Alvarenga) 1046 (Canceled Entry - Provider: Nivia Cuevas, [...] Provider: Lulu Wills)2041 (Given - Provider: Abbey Alvarenga) 0938 (Given [...] PRN, Starting on Mon02/05/24 at 2343, Until Mon02/08/24 at 1733, Routine, nausea, vomiting 0244 (JUN Hold - Provider: Automatic Transfer Provider - Reason: Patient in procedure)0644 ([facility] Unhold - Provider: Automatic Transfer Provider) sodium chloride 0.9 % flush 10 mL(Linked Group 1) 10 mL, Intravenous, As needed, Starting on Mon02/05/24 at 2334, Until Mon02/08/24 at 1733, Routine, line care 0244 ([facility] Hold - Provider: Automatic Transfer Provider - Reason: Patient in procedure)0644 ([facility] Unhold - Provider: Automatic Transfer Provider) Linked [...] needed, Starting on Mon02/05/24 at 2334, Until Mon02/08/24 at 1733, Routine, line care documented in this encounter Additional Health Concerns 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
--- OUTSIDE RECORDS SUMMARY | 2024-02-27 10:42 | XMS_ITS | Encounter Summary ---
Author Organization Healthcare Address [address] [place] [address] Care Team Providers Care Facility Mechanic Name Role Phone Jeb Gonzalez MD Primary Care Provider [phone] Encounter Details Date Type Department Care Team (Late st Contact Info) Description 02/05/2024 Orders Only External Location [address] [place] [address] Provider, External Social History Tobacco Use Types [...] place to sleep or slept in a half-way (including now)? No 02/07/2024 Utilities Answer Date [...] EST Hospital Encounter [facility] [address] [place] [phone] John Vargas MD [address] [phone] 02/28/2024 10:40 AM EST Anesthesia Event [facility] [address] [place] [phone] Fransico Mcgarry MD [address] [place], [place] [phone] 02/28/2024 10:40 AM EST - 02/28/2024 1:05 PM EST Surgery [facility] [address] [place] [phone] John Vargas MD [address] [phone] URETEROSCOPY, WITH LASER LITHOTRIPSY [[id number] (CPT??)] 05/16/2024 3:45 PM EST Office Visit Medical Office Building Urology [address] [facility], [address] [place] [address] Mark Moore MD [address] [place] [address] Scheduled Procedures Name Priority Associated Diagnoses Date/Ti me URETEROSCOPY, WITH LASER LITHOTRIPSY Ureteral stone 02/28/2024 10:40 AM EST documented as of this encounter Procedures Procedure Name Priority Date/Time Associated Diagnosis Comments CT OUTSIDE IMAGES 02/05/2024 3:14 PM EDT documented in this encounter Results * CT OUTSIDE IMAGES (02/05/2024 3:14 PM EDT) Anatomical Region Laterality Modality Computed Tomogra phy 02/05/2024 3:14 PM EDT us External Provider IMG CT [...] documented as of this encounter Care Teams Facility Mechanic Relationship Specialty Start Date End Date Jeb Gonzalez MD [address] [place] [address] PCP - General 10/06/20 documented as of this encounter
--- OUTSIDE RECORDS SUMMARY | 2024-02-27 10:42 | XMS_ITS | Encounter Summary ---
Author Organization Healthcare Address [address] [place] [address] Care Team Providers Care Salesperson Automobiles Name Role Phone Jeb Gonzalez MD Primary Care Provider Encounter Details Date Type Department Care Team (Latest Contact Info) Description 02/05/2024 Travel Social History Tobacco Use Types Packs/Day Years Used Date Smoking Tobacco: Former PHQ-2 Answer Date Recorded Patient Health Questionnaire-2 Score 2 10/06/2020 Sex and Gender Information Value Date Recorded Sex Assigned at Not on file Legal Sex Male 6:57 PM EDT Gender Identity Not on file Sexual Orientation Not on file documented as of this encounter Plan of Treatment Upcoming Encounters Date Type Department Care Team (Late st Contact Info) Description 02/28/2024 10:40 AM EST Hospital Encounter [facility] [address] [place] [phone] oJhn Vargas MD [address] [place] [phone] 02/28/2024 10:40 AM EST Anesthesia Event [facility] [address] [place] [phone] Fransico Mcgarry MD [address] [place] [address] 02/28/2024 10:40 AM EST - 02/28/2024 1:05 PM EST Surgery [facility] [address] [place] [phone] John Vargas MD [address] [phone] URETEROSCOPY, WITH LASER LITHOTRIPSY [[id number] (CPT??)] 05/16/2024 3:45 PM EST Office Visit Medical Office Building Urology [address] [facility], [address] [place] [address] Mark Moore MD [address] [place] [address] Scheduled Procedures Name Priority Associated Diagnoses Date/Ti me URETEROSCOPY, WITH LASER LITHOTRIPSY Ureteral stone 02/28/2024 10:40 AM EST documented as of this encounter Visit Diagnoses Not on filedocumented in this encounter Additional Health Concerns Assessment Noted Time A fall risk assessment has been complete d for the patient 10/06/2020 12:22 PM EDT A Body Mass Index follow-up plan has been documented for the patient 11/09/2023 2:06 PM EDT documented as of this encounter Care Teams Salesperson Automobiles Relationship Specialty Start Date End Date Jeb Gonzalez MD [address] [place] [address] PCP - General 10/06/20 documented as of this encounter
--- OUTSIDE RECORDS SUMMARY | 2024-02-27 10:42 | XMS_ITS | Encounter Summary ---
Author Organization Healthcare Address [address] [place] [address] Care Team Providers Care Other Sports Coach Or Instructor Name Role Phone Jeb Gonzalez MD Primary Care Provider [phone] Encounter Details Date Type Department Care Team (Latest Contact Info) Description 11/09/2023 Travel Social History Tobacco Use Types Packs/Day [...] Hospital Encounter [facility] [address] [place] [phone] John Vargas MD [address] [place] [phone] 02/28/2024 10:40 AM EST Anesthesia Event [facility] [address] [place] [phone] Fransico Mcgarry MD [address] [place] [address] 02/28/2024 10:40 AM EST - 02/28/2024 1:05 PM EST Surgery [facility] [address] [place] [phone] oJhn Vargas MD [address] [phone] URETEROSCOPY, WITH LASER LITHOTRIPSY [[id number] (CPT??)] 05/16/2024 3:45 PM EST Office Visit Medical Office Building Urology [address] [facility], [address] [place] [address] Mark Moore MD [address] [place] [address] Scheduled Procedures Name Priority Associated [...] documented as of this encounter Care Teams Other Sports Coach Or Instructor Relationship Specialty Start Date End Date Jeb Gonzalez MD [address] [place] [address] PCP - General 10/06/20 documented as of this encounter
--- OUTSIDE RECORDS SUMMARY | 2024-02-27 10:42 | XMS_ITS | Encounter Summary ---
Author Organization Healthcare Address [address] [place] [address] Care Team Providers Care Jd [place] Consultant Name Role Phone Jeb Gonzalez MD Primary Care Provider + [phone] Encounter Details Date Type Department Care Team (Late st Contact Info) Description 02/05/2024 Orders Only External Location [address] [place] [address] Provider, External Social History Tobacco Use Types [...] place to sleep or slept in a jail (including now)? No 02/07/2024 Utilities Answer Date [...] EST Hospital Encounter [facility] [address] [place] [phone] John Vargas MD [address] [phone] 02/28/2024 10:40 AM EST Anesthesia Event [facility] [address] [place] [phone] Fransico Mcgarry MD [address] [place], [place] [phone] 02/28/2024 10:40 AM EST - 02/28/2024 1:05 PM EST Surgery [facility] [address] [place] [phone] John Vargas MD [address] [phone] URETEROSCOPY, WITH LASER LITHOTRIPSY [[id number] (CPT??)] 05/16/2024 3:45 PM EST Office Visit Medical Office Building Urology [address] [facility], [address] [place] [address] Mark Moore MD [address] [place] [address] Scheduled Procedures Name Priority Associated Diagnoses Date/Ti me URETEROSCOPY, WITH LASER LITHOTRIPSY Ureteral stone 02/28/2024 10:40 AM EST documented as of this encounter Procedures Procedure Name Priority Date/Time Associated Diagnosis Comments XR OUTSIDE IMAGES 02/05/2024 3:26 PM EDT documented in this encounter Results * XR OUTSIDE IMAGES (02/05/2024 3:26 PM EDT) Anatomical Region Laterality Modality Radiographic Kelsey ging 02/05/2024 3:26 PM EDT us External Provider IMG XR PROCEDURES Final Result documented in this encounter [...] documented as of this encounter Care Teams Jd [place] Consultant Relationship Specialty Start Date End Date Jeb Gonzalez MD [address] [place] [address] PCP - General 10/06/20 documented as of this encounter
--- OUTSIDE RECORDS SUMMARY | 2024-02-27 10:42 | XMS_ITS | Encounter Summary ---
Author Organization Healthcare Address [address] [place] [address] Care Team Providers Care Assistant Principal Name Role Phone Jeb Gonzalez MD Primary Care Provider + [phone] Encounter Details Date Type Department Care Team (Late st Contact Info) Description 02/05/2024 Orders Only External Location [address] [place] [address] Provider, External Social History Tobacco Use Types [...] place to sleep or slept in a assisted (including now)? No 02/07/2024 Utilities Answer Date [...] EST Hospital Encounter [facility] [address] [place] [phone] John Vargas MD [address] [phone] 02/28/2024 10:40 AM EST Anesthesia Event [facility] [address] [place] [address] [phone] Fransico Mcgarry MD [address] [place], [place] [phone] 02/28/2024 10:40 AM EST - 02/28/2024 1:05 PM EST Surgery [facility] [address] [place] [address] [phone] Jhon Vargas MD [address] [phone] URETEROSCOPY, WITH LASER LITHOTRIPSY [[id number] (CPT??)] 05/16/2024 3:45 PM EST Office Visit Medical Office Building Urology [address] [facility], [address] [place] [address] Mark Moore MD [address] [place] [address] Scheduled Procedures Name Priority Associated Diagnoses Date/Ti me URETEROSCOPY, WITH LASER LITHOTRIPSY Ureteral stone 02/28/2024 10:40 AM EST documented as of this encounter Procedures Procedure Name Priority Date/Time Associated Diagnosis Comments CT OUTSIDE IMAGES 02/05/2024 3:25 PM EDT documented in this encounter Results * CT OUTSIDE IMAGES (02/05/2024 3:25 PM EDT) Anatomical [...] documented as of this encounter Care Teams Assistant Principal Relationship Specialty Start Date End Date Jeb Gonzalez MD [address] [place] [address] PCP - General 10/06/20 documented as of this encounter
--- OUTSIDE RECORDS SUMMARY | 2024-02-27 10:42 | XMS_ITS | Encounter Summary ---
Author Organization Healthcare Address [address] [place] [address] Care Team Providers Care Knuckler Name Role Phone Jeb Gonzalez MD Primary Care Provider + [phone] Reason for Visit * Auth/Cert (Routine) Specialty Diagnoses / Procedures Referred By Roni t Referred To Contact Diagnoses Hydronephrosis with renal and ureteral calculus obstruction Hydronephrosis with urinary obstruction due to ureteral calculus obstructing right ureter stone Mark Moore MD [address] [facility] [address] [place] [address] Phone: tel: fax: [facility] [address] [place] [address] Phone: tel: Referral ID Status Reason Start Date Expiration Date Visits Re quested Visits Authorized [id number] 1 1 Encounter Details Date Type Department Care Team (Late st Contact Info) Description 11/08/2023 11:59 PM EDT Anesthesia Event [facility] [address] [place] [phone] Latrice Hutchison APRN [address] [place] [phone] Salima Christensen, JULIEN [address] [facility] [address] [place] [address] Anesthesia Record Procedure Summary Procedure Name Responsible [...] as of this encounter Miscellaneous Notes * Anesthesia Preprocedure Evaluation - Latrice Hutchison APRN - 11/08/2023 11:13 AM EDT Patient: Renan Goncalves Procedure Information Date/Time: 11/08/23 1145 Procedure: URETEROSCOPY, WITH LASER LITHOTRIPSY (Right) Location: [facility] / [facility] OR Surgeons: Mark Moore MD HPI Renan Goncalves is a 78 y.o. male with PMHx of dementia, paranoid schizophrenia, MDD w/hx of suicide attempt, cognitive deficit, neuroendocrine tumor, Afib on eliquis, GERD, obesity, combined systolic/diastolic HF and HTN who presented to 11/07/2023 from OSH for obstructing kidney stone and UTI. 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 Baseline tremor. Selina Sarabia [phone] On cardizem drip at OSH for Afib with RVR (130-140s), transitioned to carvedilol. Electrolytes replaced. Last Eliquis: NPO STATUS Activity Level/METS Relevant Problems /Renal (+) Hydronephrosis with renal and ureteral calculus obstruction (+) Hydronephrosis with urinary obstruction due to ureteral calculus SOCIAL HX Social History Tobacco Use Smoking Status Former Smokeless Tobacco Not on file Social History Substance and Sexual Activity Alcohol Use None Social History Substance and Sexual Activity Drug Use Not on file SURGICAL HX Past Surgical History: Procedure Laterality Date PANCREAS SURGERY N/A Pancreas surgery from [facility] No Known Allergies MEDICATIONS Scheduled acetaminophen, 1,000 mg, Oral, q6h OMKAR carvedilol, 25 mg, Oral, BID cefTRIAXone, 2 g, Intravenous, q24h doxazosin, 1 mg, Oral, Daily heparin (porcine), 5,000 Units, Subcutaneous, q8h OMKAR methocarbamol, 750 mg, Oral, 4x daily pantoprazole, 40 mg, Intravenous, Daily [COMPLETED] Insert peripheral IV, , , Once AND [COMPLETED] Saline lock IV, , , Once AND sodium chloride, 10 mL, Intravenous, q12h AND sodium chloride, 10 mL, Intravenous, PRN sodium chloride, 2 g, Oral, Daily LABS Labs in last 18 hours CBC WBC 10.31 (H) Hb 10.9 (L) Plt 260 Hct 35.1 (L) ANC 8.72 (H) INR ??, PTT ??, Anti-Xa ?? BMP Na 138 Cl 98 BUN 16 Glu 135 (H) K 3.4 (L) Co2 28 Cr 1.17 Ca 8.8 (L) iCa 4.4 (L) Mg 2.0, Phos ?? Lactate ?? LFT AST 27 AlkPhos 82 T Prot 7.1 ALK 40 Bili 0.3 Alb ?? D.Bili ?? EKG, ECHO, Cath, Imaging, PFTs EKG Encounter Date: 11/07/23 ECG Adult Result Value EKG DIAGNOSIS CLASS Abnormal Ventricular Rate 78 QRSD Interval 148 QT Interval 412 QTC Interval 469 R [place] 130 T Wave [place] -6 Diagnosis Coarse Diagnosis Atrial fibrillation Diagnosis with premature ventricular or aberrantly conducted complexes Diagnosis Right bundle branch block Diagnosis ST abnormality and Diagnosis T wave abnormality, consider lateral ischemia Diagnosis Abnormal ECG Diagnosis Confirmed by Chivo Kohler ([id number]) on 11/08/2023 8:45:09 AM *Note: Due to a large number of results and/or encounters for the requested time period, some results have not been displayed. A complete set of results can be found in Results Review. ECHO No echocardiogram results found for the past [address] ABD 11/07/23 (OSH) Enlargement of the previously seen pancreatic mass since the prior CT of 2019. On today's examination this mass measures 7.3x7.1cm in size and now has a low- attenuation central component, likely central necrosis. Abnormal parabronchial thickening and basilar ground glass opacities bilaterally, increased since the prior exam. The bladder is incompletely distended with adjacent inflammatory stranding, and wall thickening measuring up to 1cm in size, worrisome for cystitis. There is a new 1cm stone in right ureter as described above with mild right hydronephrosis. There is no height or weight on file to calculate BMI. Vitals: 11/08/23 1004 BP: (!) 190/80 Pulse: 81 Resp: 23 Temp: 36.9 ??C (98.5 ??F) SpO2: 92% Anesthesia Evaluation Physical Exam Anesthesia Plan Additional Equipment Requests documented in this encounter Plan of Treatment Upcoming Encounters Date Type Department Care Team (Late st Contact Info) Description 02/28/2024 10:40 AM EST Hospital Encounter [facility] [address] [place] [phone] John Vargas MD [address] [phone] 02/28/2024 10:40 AM EST Anesthesia Event [facility] [address] [place] [phone] Fransico Mcgarry MD [address] [place] [address] 02/28/2024 10:40 AM EST - 02/28/2024 1:05 PM EST Surgery [facility] [address] [place] [phone] John Vargas MD [address] [phone] URETEROSCOPY, WITH LASER LITHOTRIPSY [[id number] (CPT??)] 05/16/2024 3:45 PM EST Office Visit Medical Office Building Urology [address] [facility], [address] [place] [phone] Mark Moore MD [address] [phone] Scheduled Procedures Name Priority Associated [...] documented as of this encounter Care Teams Knuckler Relationship Specialty Start Date End Date Jeb Gonzalez MD [address] [place] [address] PCP - General 10/06/20 documented as of this encounter
--- OUTSIDE RECORDS SUMMARY | 2024-02-27 10:42 | XMS_ITS | Encounter Summary ---
Author Organization Healthcare Address [address] [place] [address] Care Team Providers Care Air Quality Chemist Name Role Phone Jeb Gonzalez MD Primary Care Provider + [phone] Encounter Details Date Type Department Care Team (Late st Contact Info) Description 02/05/2024 Orders Only External Location [address] [place] [address] Provider, External Social History Tobacco Use Types [...] place to sleep or slept in a fdc (including now)? No 02/07/2024 Utilities Answer Date [...] EST Hospital Encounter [facility] [address] [place] [phone] John Vargas MD [address] [phone] 02/28/2024 10:40 AM EST Anesthesia Event [facility] [address] [place] [phone] Fransico Mcgarry MD [address] [place], [place] [phone] 02/28/2024 10:40 AM EST - 02/28/2024 1:05 PM EST Surgery [facility] [address] [place] [phone] John Vargas MD [address] [phone] URETEROSCOPY, WITH LASER LITHOTRIPSY [[id number] (CPT??)] 05/16/2024 3:45 PM EST Office Visit Medical Office Building Urology [address] [facility], [address] [place] [address] Mark Moore MD [address] [place] [address] Scheduled Procedures Name Priority Associated Diagnoses Date/Ti me URETEROSCOPY, WITH LASER LITHOTRIPSY Ureteral stone 02/28/2024 10:40 AM EST documented as of this encounter Procedures Procedure Name Priority Date/Time Associated Diagnosis Comments CT OUTSIDE IMAGES 02/05/2024 3:11 PM EDT documented in this encounter Results * CT OUTSIDE IMAGES (02/05/2024 3:11 PM EDT) Anatomical Region Laterality Modality Computed Tomogra phy 02/05/2024 3:11 PM EDT us External Provider IMG CT [...] documented as of this encounter Care Teams Air Quality Chemist Relationship Specialty Start Date End Date Jeb Gonzalez MD [address] [place] [address] PCP - General 10/06/20 documented as of this encounter
--- OUTSIDE RECORDS SUMMARY | 2024-02-27 10:42 | XMS_ITS | Encounter Summary ---
Author Organization [facility] Address [address] [place] [address] Care Team Providers Care Tire Trucker Name Role Phone Jeb Gonzalez MD Primary Care Provider + [phone] Reason for Visit * Auth/Cert (Routine) Specialty Diagnoses / Procedures Referred By Roni t Referred To Contact Diagnoses Hydronephrosis with urinary obstruction due to ureteral calculus sepsis, UTI, 12 mm obstructing stone John Vargas MD [address] [facility] [address] [place] [address] Phone: tel: fax: [facility] Emergency Department [address] [place] [phone] Phone: tel: Referral ID Status Reason Start Date Expiration Date Visits Re quested Visits Authorized [id number] 1 1 Encounter Details Date Type Department Care Team (Late st Contact Info) Description 02/06/2024 3:14 AM EDT Anesthesia Event [facility] OPERATING ROOM [address] [place] [address] Autumn Farnsworth MD [address] [place] [phone] Colette Freedman [address] [address] Anesthesia Record Procedure Summary Procedure Name Responsible Anesthesiologist Anesthesia Start Time Anesthesia Stop Time CYSTOSCOPY, WITH URETERAL STENT INSERTION (Right) Autumn Farnsworth MD 02/06/24 0314 02/06/24 0441 Events Date Time Event Comment 02/06/2024 0252 0314 An Start The patient was reevaluated immediately before sedation and remains eligible for anesthesia plan. 0314 An Start Data 0314 In Room 0333 An Induction The patient was reevaluated immediately before moderate or deep sedation use and before anesthesia induction. 0336 An Intubation 0338 Anesthesia Ready 0349 Proc Start 0419 Proc Fin 0432 An Extubation 0433 an stop data 0435 Out of Room 0441 Handoff to Receiving I compl eted my handoff to the receiving clinician during which we: 1. Identified the patient 2. Identified the responsible provider 3. Reviewed the pertinent medical history 4. Discussed the surgical course 5. Reviewed intra-op anesthesia management and issues during anesthesia 6. Set expectations for post-procedure period 7. Allowed opportunity for questions and acknowledgement of understanding. 0441 An Stop Meds Name Total fentaNYL (Sublimaze) injection 50 mcg/mL 100 mcg propofol (Diprivan) injection 10 mg/mL 5 0 mg rocuronium (ZeMuron) injection 10 mg/mL 40 mg phenylephrine (Raman-Synephrine) prefilled syringe 1 mg/10 mL 100 mcg sugammadex (Bridion) injection 100 mg/mL 400 mg Lidocaine HCl 100 MG/5ML 100 mg ceFAZolin 1 g 3 g etomidate (Amidate) injection 2 mg/mL 10 mg lactated Ringer's infusion 400 mL * Agents No agents on file. * Blood No blood administrations on file. Lines, Drains, and Airways Type Details Placement Removal Peripheral IV Placement Date: 01/09 12/01; Placement Time: 2024; Existing LDA Placed by: Outside Facility; Catheter Size: 20 G; Orientation: Left; Location: Antecubital; Removal Date: 02/09/24; Removal Time: 1533 02/05/242024 by Natalia Coleman 02/09/24 153 by Discharge Provider, Automatic Peripheral IV Placement Date: 01/09 12/01; Placement Time: 2025; Existing LDA Placed by: Outside Facility; Catheter Size: 20 G; Orientation: Anterior, Left; Location: Forearm; Removal Date: 02/09/24; Removal Time: 1533 02/05/242025 by Natalia Coleman 02/09/24 153 by Discharge Provider, Automatic Peripheral IV Placement Date: 01/09 12/01; Placement Time: 2025; Existing LDA Placed by: Outside Facility; Catheter Size: 20 G; Orientation: Posterior, Right; Location: Hand; Removal Date: 02/09/24; Removal Time: 1533 02/05/242025 by Natalia Coleman 02/09/24 1533 by Discharge Provider, Automatic Urethral Catheter Placement Date: 01/09 12/01; Placement Time: 2025; Inserted by: Natalia DAVEY; Type: Single lumen; Size: 16 Fr.; Balloon Size: 10 mL; Urine Returned: Yes; Removal Date: 02/06/24; Removal Time: 0345 02/05/242025 by Natalia Coleman 02/06/24344 by Dixie Herrera RN ETT Placement Date: 01/09 01/01; Placement Time: 335 (created via procedure documentation); Mask Ventilation: 3; Technique: Video laryngoscopy (LoPro S3); Type: ETT - single; Single Lumen Tube Size: 7.5 mm; Cuffed: Yes; Laryngoscope: Demetrio; Blade Size: 3; Location: Oral; Grade View: Grade IIa; Insertion Attempts: 1; Placement Verification: Auscultation, Capnometry; Airway Comments: Atraumatic. No change to dentition. ; Placed by: Resident ; Removal Date: 02/06/24; Removal Time: 04302/06/24335 by Sonny Allen DO 02/06/24 043 by Nader Maldonado DO Urethral Catheter Placement Date: 01/09 01/01; Placement Time: 414; Inserted by: Negro Vargas; Size: 16 Fr.; Balloon Size: 10 mL; Urine Returned: Yes; Removal Date: 02/07/24; Removal Time: 0815 02/06/24 0415 by Dixie Herrera RN 02/07/24 0815 by Hyacinth Laurent RN documented in this encounter Social History Tobacco [...] place to sleep or slept in a intermediate (including now)? No 02/07/2024 Utilities Answer Date [...] of this encounter Miscellaneous Notes * Anesthesia Postprocedure Evaluation - Nader Maldonado DO - 02/06/2024 4:42 AM EDT Patient: Renan Goncalves Anesthesia Type: general Vitals Value Taken Time BP 145/78 02/06/24 0437 Temp 37.9 02/06/24 0442 Pulse 126 02/06/24 0440 Resp 26 02/06/24 0440 SpO2 99 % 02/06/24 0440 Vitals shown include unfiled device data. Anesthesia Post Evaluation Patient location during evaluation: PACU Patient participation: complete - patient participated Level of consciousness: awake Pain management: adequate (pain score 0-3) Airway patency: natural airway Cardiovascular status: acceptable and hemodynamically stable Respiratory status: acceptable, nonlabored ventilation, face mask, spontaneous ventilation and unassisted Hydration status: acceptable No notable events documented. Cosigned by Autumn Farnsworth MD at 02/06/2024 6:50 PM EDT Associated attestation - Autumn Farnsworth MD - 02/06/2024 6:50 PM EDT I agree with the findings and care plan documented in the postprocedure evaluation note. * Anesthesia Procedure Notes - Sonny Allen DO - 02/06/2024 3:40 AM EDT Associated Order(s): Airway Airway Date/Time: 02/06/2024 3:36 AM Urgency: elective [...] Additional Comments Atraumatic. No change to dentition. Cosigned by Autumn Farnsworth MD at 02/06/2024 6:50 PM EDT Associated attestation - Autumn Farnsworth MD - 02/06/2024 6:50 PM EDT I was present during all critical and cisneros portions of the procedure(s) and immediately available [facility] services the entire duration. See resident note for details. * Anesthesia Preprocedure Evaluation - Autumn Farnsworth MD - 02/06/2024 2:49 AM EDT Images from the original note were not included. Patient: Renan Goncalves Procedure Information Date/Time: 02/06/24 0320 Procedure: CYSTOSCOPY, WITH URETERAL STENT INSERTION (Right) [facility]: [facility] Surgeons: John Vargas MD HPI: Renan Goncalves is a 78 y.o. male who presents with Hydronephrosis with urinary obstruction due to ureteral calculus, now for CYSTOSCOPY, WITH URETERAL STENT INSERTION (Right) Renan Goncalves is a 78 y.o. male with PMH dementia, HTN, Afib, HF, MDD, schizophrenia, pancreatic NET presenting with 12 mm right sided obstructing stone with upstream hydronephrosis and UA concerningfor infection. ROS: Relevant Problems Endo (+) Neuroendocrine tumor /Renal (+) Hydronephrosis with renal and ureteral calculus obstruction (+) Hydronephrosis with urinary obstruction due to ureteral calculus ALLERGIES: No Known Allergies NPO STATUS: >8 hours FUNCTIONAL CAPACITY: >4 METS SOCIAL HX: Social History Tobacco Use Smoking status: Former SURGICAL HX: Past Surgical History: Procedure Laterality Date PANCREAS SURGERY N/A Pancreas surgery from [facility] PAST MEDICAL HX: Past Medical History: Diagnosis Date Cognitive communication deficit Cognitive communication deficit Essential (primary) hypertension Hypertension Heart failure, unspecified (CMS/HCC) Heart failure Major depressive disorder, single episode, unspecified Depression Mental disorder, not otherwise specified Mental disorder Neuroendocrine tumor Pancreatic mass Paranoid schizophrenia (CMS/HCC) Chronic paranoid schizophrenia MEDICATIONS: Scheduled [Transfer Hold] acetaminophen, 1,000 mg, Oral, q6h OMKAR [Transfer Hold] apixaban, 5 mg, Oral, BID [Transfer Hold] bumetanide, 1 mg, Oral, BID [Transfer Hold] carvedilol, 25 mg, Oral, BID [Transfer Hold] docusate sodium, 250 mg, Oral, Daily [Transfer Hold] donepezil, 10 mg, Oral, Nightly [Transfer Hold] doxazosin, 1 mg, Oral, Nightly [Transfer Hold] OXcarbazepine, 300 mg, Oral, BID [Transfer Hold] pantoprazole, 40 mg, Intravenous, Daily [Transfer Hold] risperiDONE, 2 mg, Oral, Nightly [Transfer Hold] senna, 1 tablet, Oral, Nightly [COMPLETED] Insert peripheral IV, , , Once AND [COMPLETED] Saline lock IV, , , Once AND [Transfer Hold] sodium chloride, 10 mL, Intravenous, q12h AND [Transfer Hold] sodium chloride, 10 mL, Intravenous, PRN [Transfer Hold] spironolactone, 25 mg, Oral, BID Outpatient Medications Prior to Admission Medication Sig Dispense Refill Last Dose acetaminophen (Tylenol) 500 MG tablet Take 1 tablet (500 mg) by mouth 2 (two) times a day. Joint Pain acetaminophen (Tylenol) 500 MG tablet Take 2 tablets (1,000 mg) by mouth every 6 (six) hours if needed for pain, headaches or fever. apixaban (Eliquis) 5 MG tablet Take 1 [...] 2 (two) times a day. 60 tablet 0 chlorhexidine (Hibiclens) 4 % external solution Apply 1 Application topically 2 (two) times a day. Before Triamcinolone application to bilateral lower legs docusate sodium (Colace) 250 MG capsule Take 1 capsule (250 mg) by mouth 1 (one) time each day. donepezil (Aricept) 10 MG tablet Take 1 tablet (10 mg) by mouth every night. doxazosin (Cardura) 1 MG tablet Take 1 tablet (1 mg) by mouth every night. guaiFENesin (Robitussin) 100 MG/5ML solution Take 15 [...] mouth 2 (two) times a day. pantoprazole (ProtoNix) 40 MG EC tablet Take 1 tablet (40 mg) by mouth 1 (one) time each day. polyethylene glycol (Miralax) 17 GM/SCOOP powder Take 17 g by mouth 3 (three) times a week. Monday,Monday, Monday risperiDONE (RisperDAL) 1 MG tablet Take 1 tablet (1 mg) by mouth 1 (one) time each day. risperiDONE (RisperDAL) 2 MG tablet Take 1 tablet (2 mg) by mouth every night. senna (Senokot) 8.6 MG tablet Take 1 tablet (8.6 mg) by mouth Once a day, every 24 hours if needed. spironolactone (Aldactone) 25 MG tablet Take 1 tablet (25 mg) by mouth 2 (two) times a day. triamcinolone (Kenalog) 0.1 % lotion Apply 1 Application topically 2 (two) times a day. Bilateral Lower legs for warm/red irritation after Hibiclens solution Current Outpatient Medications Medication Instructions acetaminophen (TYLENOL) [...] legs for warm/red irritation after Hibiclens solution PRNs PRN medications: [Transfer Hold] ondansetron, [COMPLETED] Insert peripheral IV AND [COMPLETED] Saline lock IV AND [Transfer Hold] sodium chloride AND [Transfer Hold] sodium chloride OBJECTIVE DATA: LABS ABO/Rh Date Value Ref Range Status 02/05/2024 A Positive Final Lab Results Component Value Date WBC 14.01 (H) 02/05/2024 HGB 9.9 (L) 02/05/2024 HCT 33.2 (L) 02/05/2024 PLT 185 02/05/2024 Lab Results Component Value Date GLUCOSE 203 (H) 02/05/2024 CALCIUM 8.3 (L) 02/05/2024 NA 137 02/05/2024 K 4.0 02/05/2024 CO2 25 02/05/2024 CL 99 02/05/2024 BUN 28 (H) 02/05/2024 CREATININE 2.25 (H) 02/05/2024 Labs in last 18 hours CBC WBC 14.01 (H) Hb 9.9 (L) Plt 185 Hct 33.2 (L) ANC 12.53 (H) INR ??, PTT ??, Anti-Xa ?? BMP Na 137 Cl 99 BUN 28 (H) Glu 203 (H) K 4.0 Co2 25 Cr 2.25 (H) Ca 8.3 (L) iCa ?? Mg ??, Phos ?? Lactate ?? LFT AST 17 AlkPhos 52 T Prot 7.1 ALK 16 Bili 0.6 Alb ?? D.Bili ?? LAB TRENDS HGB (g/dL) Date Value 02/05/2024 9.9 (L) 11/09/2023 10.2 (L) 11/07/2023 10.9 (L) HCT (%) Date Value 02/05/2024 33.2 (L) 11/09/2023 33.8 (L) 11/07/2023 35.1 (L) Platelet Count (10*3/uL) Date Value 02/05/2024 185 11/09/2023 244 11/07/2023 260 Total Calcium, Plasma (mg/dL) Date Value 02/05/2024 8.3 (L) Sodium, Plasma (mmol/L) Date Value 02/05/2024 137 11/09/2023 140 11/07/2023 138 Potassium, Plasma (mmol/L) Date Value 02/05/2024 4.0 11/09/2023 3.7 11/07/2023 3.4 (L) Chloride, Plasma (mmol/L) Date Value 02/05/2024 99 11/09/2023 103 11/07/2023 98 CO2, Plasma (mmol/L) Date Value 02/05/2024 25 11/09/2023 27 11/07/2023 28 Creatinine, Plasma (mg/dL) Date Value 02/05/2024 2.25 (H) Glucose, Plasma (mg/dL) Date Value 02/05/2024 203 (H) 11/09/2023 119 (H) 11/07/2023 135 (H) EKG Encounter Date: 11/07/23 ECG Adult Result Value EKG DIAGNOSIS CLASS Abnormal Ventricular Rate 118 QRSD Interval 142 QT Interval 288 QTC Interval 403 R [place] 134 T Wave [place] -23 Diagnosis Atrial fibrillation Diagnosis with rapid ventricular response Diagnosis with premature ventricular or aberrantly conducted complexes Diagnosis Right bundle branch block Diagnosis T wave abnormality, consider lateral ischemia Diagnosis Abnormal ECG Diagnosis Confirmed by Storm Nevarez ([id number]) on 11/09/2023 9:15:41 PM *Note: Due to a large number of results and/or encounters for the requested time period, some results have not been displayed. A complete set of results can be found in Results Review. ECHO No echocardiogram results found for the past 12 months PFTs No results found for: HQM1TKR , EMA6ZVJZ , XEU1TQT , FVCPRED IMAGING: No results found. PRIOR ANESTHETICS: No reported prior anesthetic complications. PHYSICAL EXAM: There is no height or weight on file to calculate BMI. Vitals: 02/06/24 0030 02/06/24 0100 02/06/24 0130 02/06/24 0200 BP: 110/70 132/81 130/86 120/59 Pulse: 92 102 107 117 Resp: 22 25 25 25 Temp: TempSrc: SpO2: 97% 98% 100% 99% Weight: Temp: [36.7 ??C (98.1 ??F)-37.4 ??C (99.3 ??F)] 37.4 ??C (99.3 ??F) Heart Rate: [92-117] 117 Resp: [19-30] 25 BP: (106-142)/(54-90) 120/59 ROS Musculoskeletal: cervical spine limited mobility (cervical spine completly fused). Physical Exam Airway Mallampati: III Mouth opening: limited Cardiovascular Rhythm: irregular Rate: abnormal Dental Pulmonary (+) decreased breath sounds Neurological (+) altered mental status Skin Musculoskeletal Extremities Anesthesia Plan ASA 3 - emergent Plan was reviewed with: resident Anesthesia technique(s) discussed with the patient/family: general Anesthesia plan agreed upon was: general Anesthetic plan and risks discussed with parent/guardian. Additional Equipment Requests documented in this encounter Plan of Treatment Upcoming Encounters Date Type Department Care Team (Late st Contact Info) Description 02/28/2024 10:40 AM EST Hospital Encounter [facility] [address] [place] [phone] John Vargas MD [address] [phone] 02/28/2024 10:40 AM EST Anesthesia Event [facility] RO[facility] [address] [place] [phone] Fransico Mcgarry MD [address] [place] [address] 02/28/2024 10:40 AM EST - 02/28/2024 1:05 PM EST Surgery [facility] [address] [place] [phone] John Vargas MD [address] [phone] URETEROSCOPY, WITH LASER LITHOTRIPSY [[id number] (CPT??)] 05/16/2024 3:45 PM EST Office Visit Medical Office Building Urology [facility] [address] [facility], [address] [place] [address] Mark Moore MD [address] [phone] Scheduled Procedures Name Priority Associated Diagnoses Date/Ti me URETEROSCOPY, WITH LASER LITHOTRIPSY Ureteral stone 02/28/2024 10:40 AM EST documented as of this encounter Procedures Procedure Name Priority Date/Time Associated Diagnosis Comments PB ANESTHESIA PLACEHOLDER Routine 02/06/2024 3:36 AM EDT SD AN ELECTIVE ENDOTRACHEAL AIRWAY Routine 02/06/2024 3:36 AM EDT documented in this encounter Results * SD AN ELECTIVE ENDOTRACHEAL AIRWAY, PB ANESTHESIA PLACEHOLDER (02/06/2024 3:36 AM EDT) Narrative Autumn Farnsworth MD - 02/06/2024 3:36 AM EDT Sonny Allen, DO ? 02/06/2024 ??3:41 AM Airway Date/Time: [...] Farnsworth MD ANESTHESIA ORDERABLES Final R esult documented in this encounter Visit Diagnoses Not on filedocumented in this encounter Administered Medications Inactive Administered Medications - up to 3 most recent administrations Medication Order MAR Action Action Date Dose Rate Site ceFAZolin (Ancef) injection Intravenous, As needed, Starting on Mon02/06/24 at 0338, Until Mon02/07/24 at 0446, Routine, Anesthesia Intraprocedure Given 02/06/2024 3:38 AM EDT 3 g etomidate (Amidate) injection Intravenous, As needed, Starting on Mon02/06/24 at 0333, Until Mon02/07/24 at 0446, Routine, Anesthesia Intraprocedure Given 02/06/2024 3:33 AM EDT 10 mg fentaNYL (Sublimaze) injection Intravenous, As needed, Starting on Mon02/06/24 at 0333, Until Mon02/07/24 at 0446, Routine, Anesthesia Intraprocedure Given 02/06/2024 3:33 AM EDT 100 mcg lactated Ringer's infusion 42 mL/hr, Intravenous, Continuous, Starting on Mon02/05/24 at 2345, Until Mon02/07/24 at 1640, Routine Restarted 02/06/2024 5:09 AM EDT 42 mL/hr 42 mL/hr New Bag 02/06/2024 3:14 AM EDT Lidocaine HCl solution prefilled syringe Buccal, As needed, Starting on Mon02/06/24 at 0333, Anesthesia Intraprocedure Given 02/06/2024 3:33 AM EDT 100 mg phenylephrine in NS (Raman-Synephrine) 100 mcg/mL prefilled syringe Intravenous, As needed, Starting on Mon02/06/24 at 0349, Until Mon02/07/24 at 0446, Routine, Anesthesia Intraprocedure Given 02/06/2024 3:49 AM EDT 100 mcg propofol (Diprivan) injection Intravenous, As needed, Starting on Mon02/06/24 at 0333, Until Mon02/07/24 at 0446, Routine, Anesthesia Intraprocedure Given 02/06/2024 3:33 AM EDT 50 mg rocuronium (ZeMuron) injection Intravenous, As needed, Starting on Mon02/06/24 at 0333, Until Mon02/07/24 at 0446, Routine, Anesthesia Intraprocedure Given 02/06/2024 3:33 AM EDT 40 mg sugammadex (Bridion) 200 MG/2ML injection Intravenous, As needed, Starting on Mon02/06/24 at 0421, Until Mon02/07/24 at 0446, Routine, Anesthesia Intraprocedure Given 02/06/2024 4:21 AM EDT 400 mg documented in this encounter Additional Health Concerns Assessment Noted Time A fall risk assessment has been complete d for the patient 10/06/2020 12:22 PM EDT A Body Mass Index follow-up plan has been documented for the patient 11/09/2023 2:06 PM EDT documented as of this encounter Care Teams Tire Trucker Relationship Specialty Start Date End Date Jeb Gonzalez MD [address] [place] [address] PCP - General 10/06/20 documented as of this encounter
--- OUTSIDE RECORDS SUMMARY | 2024-02-27 10:42 | XMS_ITS | Encounter Summary ---
Author Organization Healthcare Address [address] [place] [address] Care Team Providers Care Early Learning Teacher Name Role Phone Jeb Gonzalez MD Primary Care Provider + [phone] Encounter Details Date Type Department Care Team (Late st Contact Info) Description 02/05/2024 Orders Only External Location [address] [place] [address] Provider, External Social History Tobacco Use Types [...] place to sleep or slept in a mcc (including now)? No 02/07/2024 Utilities Answer Date [...] Hospital Encounter [facility] [address] [place] [phone] John Vargas MD [address] [phone] 02/28/2024 10:40 AM EST Anesthesia Event [facility] [address] [place] [phone] Fransico Mcgarry MD [address] [place], [place] [phone] 02/28/2024 10:40 AM EST - 02/28/2024 1:05 PM EST Surgery [facility] [address] [place] [phone] John Vargas MD [address] [phone] URETEROSCOPY, WITH LASER LITHOTRIPSY [[id number] (CPT??)] 05/16/2024 3:45 PM EST Office Visit Medical Office Building Urology [address] [facility], [address] [place] [address] Mark Moore MD [address] [place] [address] Scheduled Procedures Name Priority Associated [...] documented as of this encounter Care Teams Early Learning Teacher Relationship Specialty Start Date End Date Jeb Gonzalez MD [address] [place] [address] PCP - General 10/06/20 documented as of this encounter
--- OUTSIDE RECORDS SUMMARY | 2024-02-27 10:42 | XMS_ITS | Encounter Summary ---
Author Organization Healthcare Address [address] [place] [address] Care Team Providers Care Operating Room Assistant Name Role Phone Jeb Gonzalez MD Primary Care Provider + [phone] Encounter Details Date Type Department Care Team (Late st Contact Info) Description 02/05/2024 Orders Only External Location [address] [place] [address] Provider, External Social History Tobacco Use Types [...] Hospital Encounter [facility] [address] [place] [phone] John Vargas MD [address] [phone] 02/28/2024 10:40 AM EST Anesthesia Event [facility] [address] [place] [phone] Fransico Mcgarry MD [address] [place], [place] [phone] 02/28/2024 10:40 AM EST - 02/28/2024 1:05 PM EST Surgery [facility] [address] [place] [phone] John Vargas MD [address] [phone] URETEROSCOPY, WITH LASER LITHOTRIPSY [[id number] (CPT??)] 05/16/2024 3:45 PM EST Office Visit Medical Office Building Urology [address] [facility], [address] [place] [address] Mark Moore MD [address] [place] [address] Scheduled Procedures Name Priority Associated [...] documented as of this encounter Care Teams Operating Room Assistant Relationship Specialty Start Date End Date Jeb Gonzalez MD [address] [place] [address] PCP - General 10/06/20 documented as of this encounter
--- OUTSIDE RECORDS SUMMARY | 2024-02-27 10:42 | XMS_ITS | Encounter Summary ---
Author Organization Healthcare Address [address] [place] [address] Care Team Providers Care Fiction And Nonfiction Prose Writer Name Role Phone Jeb Gonzalez MD Primary Care Provider + [phone] Encounter Details Date Type Department Care Team (Latest Contact Info) Description 02/06/2024 Travel Social History Tobacco Use Types Packs/Day [...] place to sleep or slept in a nursing home (including now)? No 02/07/2024 Utilities Answer Date [...] Upcoming Encounters Date Type Department Care Team ([facility] Contact Info) Description 02/28/2024 10:40 AM EST Hospital Encounter [facility] [address] [place] [phone] John Vargas MD [address] [phone] 02/28/2024 10:40 AM EST Anesthesia Event [facility] [address] [place] [phone] Fransico Mcgarry MD [address] [place] [address] 02/28/2024 10:40 AM EST - 02/28/2024 1:05 PM EST Surgery [facility] [address] [place] [phone] John Vargas MD [address] [phone] URETEROSCOPY, WITH LASER LITHOTRIPSY [[id number] (CPT??)] 05/16/2024 3:45 PM EST Office Visit Medical Office Building Urology [address] [facility], [address] [place] [address] Mark Moore MD [address] [place] [phone] Scheduled Procedures Name Priority Associated Diagnoses Date/Ti [...] documented as of this encounter Care Teams Fiction And Nonfiction Prose Writer Relationship Specialty Start Date End Date Jeb Gonzalez MD [address] [place] [address] PCP - General 10/06/20 documented as of this encounter
--- OUTSIDE RECORDS SUMMARY | 2024-02-27 10:42 | XMS_ITS | Encounter Summary ---
Author Organization Healthcare Address [address] [place] [address] Care Team Providers Care Member Service Representative Name Role Phone Jeb Gonzalez MD Primary Care Provider + [phone] Reason for Visit * Reason Comments Multiple Complaints * Auth/Cert (Routine) Specialty Diagnoses / Procedures Referred By Roni t Referred To Contact Diagnoses Hydronephrosis with renal and ureteral calculus obstruction Hydronephrosis with urinary obstruction due to ureteral calculus obstructing right ureter stone Mark Moore MD [address] [address] Phone: tel: fax: [facility] [address] [place] [address] Phone: tel: Referral ID Status Reason Start Date Expiration Date Visits Re quested Visits Authorized [id number] 1 1 Encounter Details Date Type Department Care Team (Late st Contact Info) Description 11/07/2023 9:28 PM EDT - 11/09/2023 5:08 PM EDT Emergency [facility] [address] [place] [address] Ash Pickens MD [address] [place] [address] Dre Jean-Baptiste MD [address] [place] [address] Mark Moore MD [address] [address] Hydronephrosis with renal and ureteral calculus obstruction (Primary Dx) Discharge Disposition: Home or Self Care Social History Tobacco Use Types Packs/Day Years [...] Sign Reading Time Taken Comments Blood Pressure 152/62 11/09/2023 12:29 PM EDT Pulse 82 11/09/2023 12:29 PM EDT Temperature 36.8 ??C (98.3 ??F) 11/09/2023 12:29 PM E DT Respiratory Rate 18 11/09/2023 12:29 PM EDT Oxygen Saturation 94% 11/09/2023 12:29 PM EDT Inhaled Oxygen Concentration - - Weight 124 kg (272 lb 14.9 oz) 11/07/2023 9:37 P M EDT Height - - Body Mass Index - - documented in this encounter Medications at Time [...] a day, every 24 hours if needed. risperiDONE (RisperDAL) 1 MG tablet Take 1 [...] legs for warm/red irritation after Hibiclens solution cefdinir (Omnicef) 300 MG capsule Take 1 capsule (300 mg) by mouth 2 (two) times a day for 10 days. 20 capsule 11/08/2023 11/18/19 24 cefdinir (Omnicef) 300 MG capsule Take 1 capsule (300 mg) by mouth 2 (two) times a day. Hematuria for 13 administrations 11/06/2023 11/13/19 acetaminophen (Tylenol) 500 MG tablet Take 1 tablet (500 mg) by mouth 2 (two) times a day. Joint Pain 02/06/20 acetaminophen (Tylenol) 500 MG tablet Take 2 tablets (1,000 mg) by mouth every 6 (six) hours if needed for pain, headaches or fever. 02/08/20 documented as of this encounter Miscellaneous Notes * Progress Notes - Vinita Cramer RN - 11/09/2023 11:34 AM EDT Ambulance has been set up for 2:00 PM with [employer]. Fax sent to [facility] fax # [phone], number for report given to bedside nurse, # [phone] X [phone] or [phone]. Ambulance forms sent to bedside nurse email. * Discharge Summary - Derrek Smart MD - 11/09/2023 10:05 AM EDT Images from the original note were not included. Hospitalization Admit Date/Time: 11/07/2023 9:28 PM Admitting Attending: Mark Moore Discharge Date: 11/09/23 Discharge Attending Physician: Mark Moore MD PCP name and Address: Jeb Gonzalez MD [address] [place] [address] Referring provider name and address: Adrienne Velazquez, [address] [address] Chief Concern, Brief History of Present Illness, and Hospital Course Renan Goncalves is a 78 y.o. male with PMH dementia, obesity, HTN, heart failure, MDD, schizophrenia,pancreatic mass who presented as an OSH transfer ([facility]) due to right-sided obstructing ureteral stone and possible UTI. On arrival he was hemodynamically stable and afebrile with WBC 10.3, CR 1.15 (1.5), Lactate 1.6. UA large blood, moderate LE, negative nitrite, negative bacteria. On exam, patient unable to express if he is in pain, but does not appear to be in pain upon abdominal or CVA palpation. Upon review of imaging and given ongoing clinical stability, we have elected defer acute urologic intervention at this time. This is particularly given that the patient is only alert and oriented person, and the difficult social situation making it challenging to determine who would be able to consent for this patient to undergo intervention. The medicine team, who has managed him for concern of Afib with RVR, agrees with our recommendations and the patient will be ableto follow with the nurse practitioner at his f[facility] for cardiology. From a urologic standpoint, he will be discharged with a 10 day course of cefdinir. Patient was discharged to fci instable condition. He will follow up with Urology via telemedicine in 6 months. Addendum (11/09/23) - Patient was found to again have Afib with RVR when attempting discharge yesterday. Discharge was cancelled and patient was monitored overnight. He is again rate controlled this morning, and at baseline mental status. After discussion with medicine this AM, he is appropriate for d ischarge with PO beta-blockers. He will follow up with the provider at his facility for further management. Surgeries and Procedures URETEROSCOPY, WITH LASER LITHOTRIPSY (Right) Medication List .. * acetaminophen 500 MG tablet Commonly known as: Tylenol Take 2 tablets (1,000 mg) by mouth every 6 (six) hours if needed for pain, headaches or fever. * acetaminophen 500 MG tablet Commonly known as: Tylenol Take 1 tablet (500 mg) by mouth 2 (two) times a day. Joint Pain apixaban 5 MG tablet Commonly known as: Eliquis Take 1 tablet (5 mg) by mouth 2 (two) times a day. atorvastatin 10 MG tablet Commonly known as: Lipitor Take 1 tablet (10 mg) by mouth every other day. Nightly bumetanide 1 MG tablet Commonly known as: Bumex Take 1 tablet (1 mg) by mouth 2 (two) times a day. carvedilol 25 MG tablet Commonly known as: Coreg Take 1 tablet (25 mg) by mouth 2 (two) times a day. * cefdinir 300 MG capsule Commonly known as: Omnicef Take 1 capsule (300 mg) by mouth 2 (two) times a day. Hematuria for 13 administrations * cefdinir 300 MG capsule Commonly known as: Omnicef Take 1 capsule (300 mg) by mouth 2 (two) times a day for 10 days. docusate sodium 250 MG capsule Commonly [...] Generic drug: chlorhexidine Apply 1 Application topically 2 (two) times [...] as: Miralax Take 17 g by mouth 3 (three) times a week. Monday, Monday, Monday * risperiDONE 2 MG tablet Commonly known as: RisperDAL Take 1 tablet (2 mg) by mouth every night. * risperiDONE 1 MG tablet Commonly known as: RisperDAL Take 1 tablet (1 mg) by mouth 1 (one) time each day. senna 8.6 MG tablet Commonly known as: Senokot Take 1 tablet (8.6 mg) by mouth Once a day, every 24 hours if needed. spironolactone 25 MG tablet Commonly known as: Aldactone Take 1 tablet (25 mg) by mouth 2 (two) times a day. triamcinolone 0.1 % lotion Commonly known as: Kenalog Apply 1 Application topically 2 (two) times a day. Bilateral Lower legs for warm/red irritation after Hibiclens solution * This list has 6 medication(s) that are the same as other medications prescribed for you. Read thedirections carefully, and ask your doctor or other care provider to review them with you. Where to Get Your Medications These medications were sent to [facility] - [place], [place] - [address] [facility] [id number] carvedilol 25 MG tablet cefdinir 300 MG capsule Discharge Diagnosis Medical Problems Active and Resolved Hospital Problems Hospital * (Principal) Hydronephrosis with urinary obstruction due to ureteral calculus Hydronephrosis with renal and ureteral calculus obstruction Post Discharge Instructions Follow up with primary care provider for further management of new onset atrial fibrillation Outpatient Follow-Up Future Appointments Date Time Provider Department Center 05/16/2024 3:45 PM Mark Moore MD [facility] Test Results Pending At Discharge Pending Labs Order Current Status Lactate, venous Collected (11/09/23 024) Pertinent Physical Exam At Time of Discharge Physical Exam GEN: NAD HEENT: NCAT, EOMI RESP: Equal bilateral chest rise, normal work of breathing CV: Regular rate, appears well perfused ABD: Nondistended, nontender : Alva in place with CYU, no CVAT appreciated EXT: No gross deformities MSK: tremor in BL UE NEURO: Alert and oriented to self only PSYCH: Normal mood and affect Discharge Disposition/Condition Disposition: Nursing facility (specify) Condition: Stable (s/sx potential problems absent or manageable) I spent < 30 minutes of patient care and instruction time in preparation for this discharge. Cosigned by Mark Moore MD at 11/09/2023 11:55 AM EDT Associated attestation - Mark Moore MD - 11/09/2023 11:55 AM EDT I saw and evaluated the patient. I discussed the case with the resident/fellow and agree with the findings and plan as documented. * Progress Notes - Celine Bowles APRN - 11/09/2023 9:48 AM EDT Subjective Resting quietly in bed this AM. Says he is sleepy. Had recurrence of RVR last night requiring metoprolol 5 mg IV x 3 doses. No issues since then. Review of Systems Unable to perform ROS: Dementia Objective Most recent labs CBC WBC 9.35 Hb 10.2 (L) Plt 244 Hct 33.8 (L) BMP Na 140 Cl 103 BUN 15 Glu 119 (H) K 3.7 Co2 27 Cr 1.25 (H) Ca 8.8 (L) iCa ?? Mg 2.2, Phos 3.4 Physical Exam Vitals and nursing note reviewed. Constitutional: General: He is not in acute distress. Appearance: He is obese. Cardiovascular: Rate and Rhythm: Normal rate. Rhythm irregular. Pulses: Normal pulses. Heart sounds: Normal heart sounds. No murmur heard. No friction rub. No gallop. Pulmonary: Effort: Pulmonary effort is normal. Breath sounds: Normal breath sounds. Abdominal: General: Bowel sounds are normal. There is no distension. Palpations: Abdomen is soft. Tenderness: There is no abdominal tenderness. Genitourinary: Comments: Alva in place draining clear, yellow urine Musculoskeletal: Right lower le+ Pitting Edema present. Left lower le+ Pitting Edema present. Skin: General: Skin is warm and dry. Neurological: General: No focal deficit present. Mental Status: He is alert. Mental status is at baseline. Psychiatric: Attention and Perception: Attention normal. Mood and Affect: Mood normal. Affect is flat. Speech: Speech is delayed. Behavior: Behavior is withdrawn. Behavior is cooperative. Last Recorded Vitals Blood pressure (!) 183/81, pulse 70, temperature 36.7 ??C (98.1 ??F), temperature source Oral, resp. rate 18, weight 124 kg (272 lb 14.9 oz), SpO2 99%. Assessment/Plan Principal Problem: Hydronephrosis with urinary obstruction due to ureteral calculus Active Problems: Hydronephrosis with renal and ureteral calculus obstruction Mr. Goncalves is a 78-year-old male with a PMH of atrial fibrillation, GERD, HTN, HLD, combined HF, PVD, dementia, pancreatic mass, osteopenia, paranoid schizophrenia, and MDD with history of suicide attempt who presented 11/07/2023 for obstructing stone. consulted for inpatient comanagement. Hospital course complicated by a fib with RVR. Acute on chronic atrial fibrillation - Was on metoprolol XL 100 mg daily, apixaban 5mg BID prior to arrival - For RVR, initially managed with diltiazem drip then transitioned to carvedilol 25 mg BID - EKG 11/07 PM personally reviewed, showed a fib w/ RVR w/ RBBB; with this repeat episode, given metoprolol 5 mg IV x 3 - Rate controlled this AM on carvedilol 25 mg BID - RVR likely d/t UTI, being treated as per urology - Recommend continuing carvedilol 25 mg BID on discharge--d/w primary team Hypokalemia - K+ 3.7, given 30 mEq for goal K+ >4 given a fib KARINA - Cr 1.5 at OSH, trended down to 1.17 here - Cr increased to 1.25 this AM, likely due to him remaining NPO - Encourage PO fluid intake Combined systolic/diastolic HF - Home: metoprolol, bumetanide, spironolactone - Resume bumetanide, spironolactone at discharge. - Recommend 2gm Na diet HTN, uncontrolled - Home: metoprolol succ, amlodipine, losartan, doxazosin - Continue amlodipine, losartan, doxazosin - Metoprolol transitioned to carvedilol Obstructing stone Complicated UTI - Started on cefdinir at SNF day prior to admit. Now on ceftriaxone inpatient - CT A&P at OSH w/ right sided hydronephrosis and hydroureter w/ distal obstructing stone measuring up to 1cm - Alva in place - All related management per primary Acute normocytic anemia on suspected chronic anemia - Hgb 12 at OSH; now 10.2. - Would recommend outpatient chronic anemia workup Neuroendocrine tumor - Per chart review previous treatment denied - Would defer any further workup given previous noted decline in treatment until emergency contact is identified. Pt is DNR at SNF. Schizophrenia w/ behavioral disturbance MDD Dementia - Home: donepezil, risperidone, oxcarbazepine. Recommend to resume. HLD - Home: atorvastatin. Would resume. PVD - Home: Hibiclens BID w/ triamincolone lotion. Resume on discharge. GERD - Home: pantoprazole. Recommend transitioning to PO pantoprazole. Thank you for the consult. consults will sign off as patient is being discharged. Please secure chat, call or page with questions. Celine Bowles APRN Pager: [phone] MDM Acute threat to life/bodily function: A fib RVR Discussion of management/test with another provider: urology ECG personally reviewed, showing A fib RVR Unique labs reviewed: CBC, BMP, mag * Significant Event - Chris Cm MD - 11/08/2023 9:00 PM EDT Contacted by primary RN for tachycardia to 150s prior to transportation arriving for discharge. Patient was asymptomatic and BP was stable. EKG obtained which revealed patient was in Afib with RVR, Patient's discharge order was cancelled and medicine team contacted for management of his cardiac concerns. They prescribed 5 mg metoprolol x3 which improved his rate. Patient was subsequently placed back on telemetry. We will continue to monitor and appreciate medicine's recommendations. Chris Cm MD PGY-2 Urology * Progress Notes - Liban Hemphill MD - 11/08/2023 2:00 PM EDT [facility] Urology Inpatient Progress Note Primary Attending: Mark Moore MD SUBJECTIVE: Patient went into AFib with RVR yesterday preventing him from being discharged back home to his facility. He was given 3 doses of IV metoprolol which controlled his rate. This morning, he is only oriented to self. His heart rate is controlled. PHYSICAL EXAM: Temp: [36.3 ??C (97.4 ??F)-37.2 ??C (99 ??F)] 36.3 ??C (97.4 ??F) Heart Rate: [73-139] 77 Resp: [14-25] 19 BP: (137-200)/(74-133) 162/80 SpO2: [91 %-100 %] 100 % I O Shift I O 24Hrs LDAs No intake/output data recorded. I/O last 3 completed shifts: In: 100 (0.8 mL/kg) [IV Piggyback:100] Out: 300 (2.4 mL/kg) [Urine:300 (0.1 mL/kg/hr)] Weight: 123.8 kg Urethral Catheter (Active) Placement Date/Time: 11/07/232154 Present on Admission: Yes Placed by External Staff?: Outside Facility GEN: NAD HEENT: NCAT, EOMI RESP: Equal bilateral chest rise, normal work of breathing CV: Regular rate, appears well perfused ABD: Nondistended : Alva catheter in place draining yellow urine with sediment EXT: No gross deformities MSK: Full ROM in BL UE NEURO: No focal deficits, oriented only to self PSYCH: Dementia LABS: Results from last 7 days Lab Units 11/09/23 0245 WBC 10*3/uL 9.35 HEMOGLOBIN g/dL 10.2* HEMATOCRIT % 33.8* PLATELETS 10*3/uL 244 Results from last 7 days Lab Units 11/09/23 0245 SODIUM mmol/L 140 POTASSIUM mmol/L 3.7 CHLORIDE mmol/L 103 CO2 mmol/L 27 BUN mg/dL 15 CREATININE mg/dL 1.25* EGFR mL/min/1.73m*2 59.3 GLUCOSE mg/dL 119* CALCIUM mg/dL 8.8* Results from last 7 days Lab Units 11/07/23 2230 COLOR UA [place] SPEC GRAV U 1.020 PH UA 7.0 PROTEIN UR mg/dL 100* GLUCOSE UA mg/dL Negative KETONES UA mg/dL Negative LEUKOCYTES UA Moderate* NITRITE UA Negative RBC, URINE /HPF >50* WBC, URINE /HPF >50* SQUAMOUS /HPF 0 - 2 BACTERIA UR HPF Negative IMAGING: No new relevant imaging to review HOSPITAL PROBLEM LIST: Principal Problem: Hydronephrosis with urinary obstruction due to ureteral calculus Active Problems: Hydronephrosis with renal and ureteral calculus obstruction ASSESSMENT: Renanjunior Goncalves is a 78 y.o. male with PMH dementia, obesity, HTN, heart failure, MDD, schizophrenia, pancreatic mass who presented as an OSH transfer ([facility]) due to right-sided obstructing ureteral stone and possible UTI. On arrival he was hemodynamically stable and afebrile with WBC 10.3, CR 1.15 (1.5), Lactate 1.6. UA large blood, moderate LE, negative nitrite, negative bacteria. On exam, patient unable to express if he is in pain, but does not appear to be in pain upon abdominal or CVA palpation. Upon review of imaging and given ongoing clinical stability, we have elected defer acute urologic intervention at this time. This is particularly given that the patient is only alert and oriented person, and the difficult social situation making it challenging to determine who would be able to consent for this patient to undergo intervention. The medicine team, who has managed him for concern of Afib with RVR, agrees with our recommendations and the patient will be able to follow with the nurse practitioner at his fci for cardiology. From a urologic standpoint, he will be discharged with a 10 day course of cefdinir. Original plan was to discharge him home to his fci in stable condition with close follow-up with his nurse practitioner for AFib RVR. He went into AFib RVR yesterday and received 3 doses of metoprolol with stabilization of his heart rate. At bedside this morning, he is only oriented to self and his rate is controlled. 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 I discussed the case with the resident/fellow and agree with the findings and plan as documented. * Progress Notes - Mer Cote RN - 11/08/2023 8:40 AM EDT Case Management Adult Progress Note Renan Goncalves 78 y.o. male [facility]: [id number] Admission: 11/07/2023 9:28 PM Primary Problem: Hydronephrosis with urinary obstruction due to ureteral calculus Patient presented from [facility] for evaluation and management of obstructing kidney stone and UTI. Patient originated from [facility] in [place]. 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 Mer Cote RN Case Manager * Consults - Jim Ramirez APRN - 11/08/2023 7:40 AM EDTAssociated Order(s): Inpatient consult to Hospital Medicine Images from the original note were not included. Hospital Medicine Initial Consult H&P ( 11/08/23 ) Inpatient consult to Hospital Medicine Consult performed by: Jim Ramirez APRN Consult ordered by: Dre Jean-Baptiste MD Reason for consult: New atrial fibrillation Chief Complaint Denies any complaints. However, w/ dementia, schizophrenia, cognitive impairment. History of Present Illness Renan Goncalves is a 78 y.o. male with medical history significant for dementia, schizophrenia, MDD, cognitive deficit, neuroendocrine tumor, HF and HTN who presented to 11/07/2023 from OSH for obstructing kidney stone and UTI. Patient initially presented to [facility] from his fci for abdominal pain and foul smelling burps. He was started on antibiotics day prior for UTI. He was transferred to for further mgmt. consulted for atrial fibrillation. He was given Cardizem IVP followed by gtt at OSH. He has since been transitioned to carvedilol. Rhythm remains irregular but is currently rate controlled. Patient is able to tell me his name and birthday. He thinks he is at [place]. He is unable to tell me the year. He cannot recall who his emergency contact is. No family at bedside. He denies any complaints at present. He tells me his BUE tremor is normal. Review of Systems Review of Systems Respiratory: Negative for shortness of breath. Cardiovascular: Negative for chest pain. Gastrointestinal: Negative for abdominal pain. Musculoskeletal: Negative for arthralgias and myalgias. Limited due to cognitive deficit, encephalopathy. Past Medical History Dementia Neurocognitive disorder MDD w/ hx suicide attempt Paranoid schizophrenia GERD HTN HLD Obesity Combined chronic systolic/diastolic HF Osteopenia Lumbar spondylolysis Pancreatic mass [place] Past Surgical History Past Surgical History: Procedure Laterality Date PANCREAS SURGERY N/A Pancreas surgery from [facility] Allergies No Known Allergies Current Medications Current Outpatient Medications Medication Instructions acetaminophen (TYLENOL) 650 mg, Oral, Every 4 hours PRN amLODIPine (Norvasc) 5 MG tablet No dose, route, or frequency recorded. aspirin 81 mg, Oral, ZZ Daily RT carvedilol (Coreg) 25 MG tablet No dose, route, or frequency recorded. donepezil (Aricept) 5 MG tablet No dose, route, or frequency recorded. doxazosin (Cardura) 1 MG tablet No dose, route, or frequency recorded. furosemide (Lasix) 40 MG tablet No dose, route, or frequency recorded. ibuprofen 400 MG tablet No dose, route, or frequency recorded. ondansetron (ZOFRAN) 4 mg, Oral, Every 8 hours PRN OXcarbazepine (Trileptal) 300 MG tablet No dose, route, or frequency recorded. pantoprazole (ProtoNix) 40 MG EC tablet No dose, route, or frequency recorded. potassium chloride CR (Klor-Con) 10 MEQ ER tablet No dose, route, or frequency recorded. risperiDONE (RisperDAL) 2 MG tablet No dose, route, or frequency recorded. senna (Senokot) 8.6 MG tablet 1 tablet, Oral, Nightly Immunization History Immunization History Administered Date(s) Administered tu.nr COVID-19 Vaccine (Purple Cap) 12+ 04/25/2020, 05/15/2020 Social History Pt is single. Pt lives in SNF. Pt is unemployed. Tobacco- denies EtOH- denies Recreational Drug use - denies Family History No family history on file. Patient is unsure of family history. No emergency contact. Labs Lab Results Component Value Date WBC 10.31 (H) 11/07/2023 HGB 10.9 (L) 11/07/2023 HCT 35.1 (L) 11/07/2023 MCV 89 11/07/2023 PLT 260 11/07/2023 Lab Results Component Value Date BUN 16 11/07/2023 Lab Results Component Value Date CREATININE 1.17 11/07/2023 Lab Results Component Value Date NA 138 11/07/2023 K 3.4 (L) 11/07/2023 CL 98 11/07/2023 CO2 28 11/07/2023 EKG Vital signs Temp: [36.7 ??C (98 ??F)-36.9 ??C (98.4 ??F)] 36.7 ??C (98 ??F) Heart Rate: [93-111] 99 Resp: [12-27] 18 BP: (136-199)/(75-157) 171/100 SpO2: [33 %-100 %] 98 % Physical Exam Physical Exam Constitutional: General: He is sleeping. He is not in acute distress. Appearance: He is obese. He is ill-appearing (chronically). He is not toxic- appearing or diaphoretic. Comments: RA HENT: Head: Normocephalic. Right Ear: Decreased hearing noted. Left Ear: Decreased hearing noted. Nose: Nose normal. Mouth/Throat: Mouth: Mucous membranes are dry. Eyes: General: Lids are normal. Right eye: No discharge. Left eye: No discharge. Cardiovascular: Rate and Rhythm: Normal rate. Rhythm irregular. Pulses: Dorsalis pedis pulses are 1+ on the right side and 1+ on the left side. Posterior tibial pulses are 1+ on the right side and 1+ on the left side. Heart sounds: S1 normal and S2 normal. Heart sounds are distant. Pulmonary: Effort: No tachypnea, bradypnea or respiratory distress. Breath sounds: Normal breath sounds. No decreased breath sounds. Abdominal: General: Bowel sounds are normal. Palpations: Abdomen is soft. Hernia: A hernia is present. Hernia is present in the umbilical area. Genitourinary: Comments: Alva w/ clear yellow urine Musculoskeletal: Right lower le+ Edema present. Left lower le+ Edema present. Comments: Bilateral venous stasis changes Skin: General: Skin is warm and dry. Capillary Refill: Capillary refill takes 2 to 3 seconds. Coloration: Skin is pale. Neurological: Mental Status: He is easily aroused. He is disoriented. GCS: GCS eye subscore is 4. GCS verbal subscore is 4. GCS motor subscore is 6. Motor: Weakness and tremor (BUE) present. Psychiatric: Attention and Perception: He is inattentive. Mood and Affect: Affect is flat. Speech: Speech is delayed. Behavior: Behavior is cooperative. Assessment and Plan Principal Problem: Hydronephrosis with urinary obstruction due to ureteral calculus Active Problems: Hydronephrosis with renal and ureteral calculus obstruction 11/07/2023 9:28 PM for Hydronephrosis with urinary obstruction due to ureteral calculus [N13.2] Renan Goncalves is a 78 y.o. male with history: atrial fibrillation, GERD, HTN, HLD, combined HF, PVD, dementia, pancreatic mass, osteopenia, paranoid schizophrenia, and MDD w/ hx suicide attempt who presented 11/07/2023 for obstructing stone. consulted for inpatient co-mgmt. # Acute on Chronic Atrial Fibrillation - Per dispense hx: metoprolol succ 100mg daily, apixaban 5mg BID - Cardizem IVP-> gtt for RVR now transitioned to Carvedilol - ECG repeated w/ atrial fibrillation, PVCs, RBBB w/ t wave abnormality - K low, Mag ordered/reviewed, WNL. K replacements ordered. - Trend/replete K, Mag, Ca per protocol - Goal K>4, Mag >2, iCa >4.6 - Continue telemetry # Hypokalemia - Replacements ordered - Recommend BMP in am - Goal K> 4, Mag>2 in setting of AF # Lactic Acidosis - At OSH 2.5 w/ IVF given - Recommend am lactate # KARINA - Cr 1.5 at OSH now down trended to 1.17 - Suspect in relation to obstructing stone - Recommend continued trend # Combined systolic/diastolic HF - Home: metoprolol, bumetanide, spironolactone - Hold bumetanide, spironolactone for OR. Resume as appropriate. - + 2 pitting edema on exam - CXR w/ cardiomegaly w/ some pulmonary congestion - Monitor fluid status - Recommend judicious IVF - Recommend 2gm Na diet when eating # HTN, uncontrolled - Home: metoprolol succ, amlodipine, losartan, doxazosin - Recommend resuming doxazosin, amlodipine. - Hold losartan for OR. Resume as appropriate. # Obstructing stone # UTI - Started on Cefdinir at SNF day prior to admit. Now on Ceftriaxone. - CT A&P at OSH w/ right sided hydronephrosis and hydroureter w/ distal obstructing stone measuring up to 1cm - Alva in place - All related mgmt per primary # Leukocytosis - Suspect multifactorial: infectious, inflammatory - Afebrile though on scheduled acetaminophen. - Recommend trend # Acute Normocytic anemia on suspected chronic anemia - Hgb 12 at OSH; now 10.9. - Would recommend outpatient chronic anemia workup - Recommend CBC in am # Neuroendocrine tumor - Per chart review previous treatment denied - Would defer any further workup given previous noted decline in treatment until emergency contact is identified. Pt is DNR at [facility]. # Schizophrenia w/ behavioral disturbance # MDD # Dementia - Home: donepezil, risperidone, oxcarbazepine. Recommend to resume. - Would add delirium precautions # HLD - Home: atorvastatin. Would resume. # PVD - Home: hibiclens BID w/ triamincolone lotion. Resume on discharge. # GERD - Home: pantoprazole. Recommend transitioning to PO pantoprazole. Patient was discussed with the Dr Delacruz, nursing, and Dr Bolton. Thank you for allowing us to participate in this patients care. We will continue to follow along. Please do not hesitate to reach out with any questions and/or concerns. A total of 70 minutes were spent on this encounter which included face-face with patient/family fordiscussion & counseling and coordination of care within the care team. Data review dominated (more than 50%) the encounter. Information above was obtained from patient and review of available medical records. Jim Ramirez [facility] Medicine Division Pager [phone] Secure chat via [employer] preferred 11/08/23 Cosigned by Romina Delacruz MD at 11/08/2023 2:40 PM EDT Associated attestation - Romina Delacruz MD - 11/08/2023 2:40 PM EDT The patient was seen by me and Advanced Practice Provider (CHRISSIE), care was reviewed with me. Per discussion with urology - stone appears to be chronically obstructed, does not warrant acute urological evaluation for stone removal. Agree with completion of course of ABX. Afib is likely a 2/2 consequence of UTI; improving with ABX * H&P - Negro Vargas MD - 11/08/2023 2:51 AM EDTAssociated Order(s): Consult to Urology Consult to Urology Consult performed by: Negro Vargas MD Consult ordered by: Ash Pickens MD [facility] Urology H&P Note 11/08/23 Service Requesting Consultation: EM CC: obstructing right ureteral stone, possible UTI HPI: Renan Goncalves is a 78 y.o. male with PMH dementia, obesity, HTN, heart failure, MDD, schizophrenia,pancreatic mass he was presenting as an OSH transfer ([facility]) due to right-sided obstructing ureteral stone and possible UTI. Urology consulted due to this finding. Patient initially presented to the OSH ED on 11/06 via EMS due to concerns by fci for abdominal pain and foul-smelling burps. History is difficult to ascertain from patient due to his dementia. He was only oriented to self which is reportedly his baseline. He has a known pancreatic mass inwhich he has been refusing treatment since at least 2017. Per fci, patient had a positive UA and was started on cefdinir on 11/05. He was AF, HDS. WBC 9.2, HGB 12, creatinine 1.5, lactate 3.2. UA revealed 3+ blood, negative nitrites, 1+ leukocyte, trace bacteria. OSH CT revealed obstructing 1 cm stone in right mid ureter, non obstructing 1.4 cm stone in right renal pelvis with trace ureteral dilation proximal and distal to ureteral stone. There is also parenchymal thinning of the rightkidney > left and possible extrarenal pelvis. Known pancreatic mass increased in size and has central necrosis. Patient was transferred to for higher level care. Blood cultures were obtained and IV Rocephin was started prior to transfer. Of note, patient was started on diltiazem gtt due to concern for Afib w/RVR during transport, now HR is 102 and stable. He also appears to have a tremor which is his baseline per report. He is AF, HDS upon arrival. WBC 10.3, CR 1.15 (1.5), Lactate 1.6. UA large blood, moderate LE, negative nitrite, negative bacteria. Urine culture pending. Alva placed in ED draining CYU. On exam, patient unable to express if he is in pain, but does not appear to be in pain upon abdominal or CVA palpation. Past Medical History: reviewed Past Medical History: [...] Date PANCREAS SURGERY N/A Pancreas surgery from [facility] Family History: reviewed No family history on file. Social History: reviewed Social History Tobacco Use Smoking status: Former Outpatient Medications: Current Outpatient Medications Medication Instructions acetaminophen (TYLENOL) 650 mg, Oral, Every 4 hours PRN amLODIPine (Norvasc) 5 MG tablet No dose, route, or frequency recorded. aspirin 81 mg, Oral, ZZ Daily RT carvedilol (Coreg) 25 MG tablet No dose, route, or frequency recorded. donepezil (Aricept) 5 MG tablet No dose, route, or frequency recorded. doxazosin (Cardura) 1 MG tablet No dose, route, or frequency recorded. furosemide (Lasix) 40 MG tablet No dose, route, or frequency recorded. ibuprofen 400 MG tablet No dose, route, or frequency recorded. ondansetron (ZOFRAN) 4 mg, Oral, Every 8 hours PRN OXcarbazepine (Trileptal) 300 MG tablet No dose, route, or frequency recorded. pantoprazole (ProtoNix) 40 MG EC tablet No dose, route, or frequency recorded. potassium chloride CR (Klor-Con) 10 MEQ ER tablet No dose, route, or frequency recorded. risperiDONE (RisperDAL) 2 MG tablet No dose, route, or frequency recorded. senna (Senokot) 8.6 MG tablet 1 tablet, Oral, Nightly ROS: Review of Systems Unable to perform ROS: Dementia PHYSICAL EXAM: Temp: [36.7 ??C (98 ??F)] 36.7 ??C (98 ??F) Heart Rate: [93-111] 93 Resp: [12-27] 19 BP: (136-199)/(75-157) 173/99 SpO2: [33 %-100 %] 96 % GEN: NAD HEENT: NCAT, EOMI RESP: Equal bilateral chest rise, normal work of breathing CV: Regular rate, appears well perfused ABD: Nondistended, nontender : Alva in place with CYU, no CVAT appreciated EXT: No gross deformities MSK: tremor in BL UE NEURO: Oriented to self PSYCH: Normal mood and affect LABS: Results from last 7 days Lab Units 11/07/23 2230 WBC 10*3/uL 10.31* HEMOGLOBIN g/dL 10.9* HEMATOCRIT % 35.1* PLATELETS 10*3/uL 260 Results from last 7 days Lab Units 11/07/23 2230 SODIUM mmol/L 138 POTASSIUM mmol/L 3.4* CHLORIDE mmol/L 98 CO2 mmol/L 28 BUN mg/dL 16 CREATININE mg/dL 1.17 EGFR mL/min/1.73m*2 64.2 GLUCOSE mg/dL 135* CALCIUM mg/dL 8.8* Results from last 7 days Lab Units 11/07/23 2230 COLOR UA [place] SPEC GRAV U 1.020 PH UA 7.0 PROTEIN UR mg/dL 100* GLUCOSE UA mg/dL Negative KETONES UA mg/dL Negative LEUKOCYTES UA Moderate* NITRITE UA Negative RBC, URINE /HPF >50* WBC, URINE /HPF >50* SQUAMOUS /HPF 0 - 2 BACTERIA UR HPF Negative Imaging: I have personally reviewed the imaging below: CT A/P w/IV contrast 11/07/23 - approximately 1.4 x 1.8 cm right mid ureteral stone, 1.4 cm right renal pelvis stone - atrophic right kidney with hydronephrosis vs extrarenal pelvis - bladder wall thickening Hospital Problem List: Active Problems: There are no active Hospital Problems. Assessment: Renan Goncalves is a 78 y.o. male with PMH dementia, obesity, HTN, heart failure, MDD, schizophrenia, pancreatic mass he was presenting as an OSH transfer ([facility]) due to right-sided obstructing ureteral stone and possible UTI. Urology consulted due to this finding. AtOSH, UA revealed 3+ blood, negative nitrites, 1+ leukocyte, trace bacteria. OSH CT revealed obstructing 1.8 cm stone in right mid ureter, non obstructing 1.4 cm stone in right renal pelvis with traceureteral dilation proximal and distal to ureteral stone. There is also parenchymal thinning of the right kidney > left and possible extrarenal pelvis. Known pancreatic mass increased in size and has central necrosis. Blood cultures were obtained and IV Rocephin was started prior to transfer. He is AF, HDS upon arrival. WBC 10.3 (9.2 at OSH), CR 1.15 (1.5), Lactate 1.6 (3.2). UA large blood, moderate LE, negative nitrite, negative bacteria. Urine culture pending. Alva placed in ED draining CYU. On exam, patient unable to express if he is in pain, but does not appear to be in pain upon abdominal or CVA palpation. The right mid ureteral stone appears to be chronically obstructing as the right kidney appears to be atrophic. Bladder wall thickening is concerning for cystitis. We will consult Medicine due to patient's significant comorbidities and new onset AFib with RVR as well. Urology admit for observation and consider acute intervention if patient clinical status worsens or he failsto improve with antibiotics. Plan: - no acute urologic intervention - keep NPO at this time for possible stent, mIVF - continue broad spectrum IV antibiotics, tailored to culture sensitivities when available - MMPC - monitor UOP, trend Cr - consult to Medicine for further work up of tachycardia vs afib and other comorbidities - AM labs Negro Vargas MD Urology PGY-2 Pager: [phone] Cosigned by Mark Moore MD at 11/08/2023 4:38 PM EDT Associated attestation - Mark Moore MD - 11/08/2023 4:38 PM EDT I saw and evaluated the patient. I discussed the case with the resident/fellow and agree with the findings and plan as documented. * ED Provider Notes - Kelsea Gleason MD - 11/07/2023 9:28 PM EDT - HPI Chief Complaint Patient presents with Multiple Complaints HPI Renan Goncalves is a 78 y/o male presenting with renal stone. Patient is oriented to self at baseline and unable to give me any history. Remaining history provided in MDM per OSH documentation. Nancy Coma Scale Score: 14 Patient History Past Medical History: Diagnosis Date Cognitive communication deficit Cognitive communication deficit Essential (primary) hypertension Hypertension Heart failure, unspecified (CMS/HCC) Heart failure Major depressive disorder, single episode, unspecified Depression Mental disorder, not otherwise specified Mental disorder Neuroendocrine tumor Pancreatic mass Paranoid schizophrenia (CMS/HCC) Chronic paranoid schizophrenia Past Surgical History: Procedure Laterality Date PANCREAS SURGERY N/A Pancreas surgery from [facility] No family history on file. Tobacco Use Smoking status: Former Immunization History Immunization History: reviewed Allergies: No Known Allergies Review of Systems Review of Systems Unable to perform ROS: Dementia Gastrointestinal: Positive for abdominal pain. Genitourinary: Positive for hematuria. Psychiatric/Behavioral: Positive for confusion. Physical Exam ED Triage Vitals [11/07/23 2137] Temp Heart Rate Resp BP 36.7 ??C (98 ??F) 111 12 136/75 SpO2 Temp Source Heart Rate Source Patient Position 94 % Oral -- Lying BP Location FiO2 (%) Right arm -- Physical Exam Vitals and nursing note reviewed. Constitutional: General: He is not in acute distress. Appearance: He is well-developed. HENT: Head: Normocephalic and atraumatic. Eyes: Conjunctiva/sclera: Conjunctivae normal. Cardiovascular: Rate and Rhythm: Tachycardia present. Rhythm irregular. Heart sounds: No murmur heard. Pulmonary: Effort: Pulmonary effort is normal. No respiratory distress. Breath sounds: Normal breath sounds. Abdominal: Palpations: Abdomen is soft. Tenderness: There is abdominal tenderness (diffuse, mild). Musculoskeletal: General: No swelling. Cervical back: Neck supple. Skin: General: Skin is warm and dry. Capillary Refill: Capillary refill takes less than 2 seconds. Neurological: Mental Status: He is alert. Mental status is at baseline. Comments: Upper extremity tremors Psychiatric: Mood and Affect: Mood normal. ED Course & MDM ED Course as of 11/08/23123Nov 07, [id number] WBC(!): 10.31 [MR] 2247 Lactate: 1.6 [MR] 2247 Blood, Urine(!): Large [MR] 2247 Nitrite, Urine: Negative [MR] ED Course User Index [MR] Kelsea Gleason MD Clinical Impressions as of 11/08/23123 Hydronephrosis with renal and ureteral calculus obstruction - Medical Decision Making Patient was seen and examined with Dr. Pickens. In summary, Renan Goncalves is a 78 y/o male presentingwith renal stone. Patient was afebrile, hemodynamically stable, in no respiratory distress, and nontoxic in appearance upon arrival and throughout the entire stay in the ED. On physical examination, patient had mild diffuse abdominal tenderness without guarding, irregular tachycardic rhythm. Differential diagnosis includes but is not limited to UTI, urethritis, bladder/urethral malignancy, nephrolithiasis, urethral structure or obstruction, trauma, chemical irritation, sepsis and interstitial cystitis. All of these have been considered and worked-up with laboratory and/or radiographic evalu ation to the extent appropriate based on history and physical examination. Ruling out the most morbid conditions drove my clinical assessment. Orders Placed This Encounter Procedures XR Chest 1 View CMP CBC w/diff Lipase Blood gas panel, venous Urinalysis with reflex microscopic AND reflex culture (IF UTI SUSPECTED) Hepatitis C Antibody - ED ED Protocol - HIV 1/2 Antibody/Antigen Screen Urinalysis with reflex microscopic (Culture NOT Included) Urine Velez Panel ED HIV 1/2 Antibody/Antigen Screen w/Reflex to HIV 1/2 Differentiation EKG now - STAT (adult) External notes independently reviewed from [facility] and pertinent for: Per documentation from [facility], was initially brought to the hospital due to concern of foul-smelling burping at his [facility]. It was documented that on arrival to the ER patient had no pain or complaints and did not know why he was in the hospital. Patient is not on blood thinners per medication list. Patient's facility nurse also reported that he had a positive urinalysis and was started on antibiotics yesterday. Per documentation patient was started on cefdinir and transitioned to ceftriaxone at [facility] per Urology recommendation in the transfer call. Selina Sarabia is listed as next of kin [phone]. Labs significant for WBC 9.2, creatinine 1.5, lactic acid 2.5. CT abdomen/pelvis with IV contrast with the following impression: Enlargement of the previously seen pancreatic mass since the prior CT 2019. On today's examination this mass measures 7.3 x 7.1 cm insize, now has low attenuation central component, likely central necrosis. Abnormal peribronchial and basilar ground-glass opacities bilaterally, increased since the exam bladder is distended adjacentinflammatory stranding, and wall thickening measuring up to 1 cm in size worrisome for cystitis. There is a new 1 cm stone in the right ureter as described mild right hydronephrosis. Initial Assessment: Afebrile, tachycardic, in no acute distress, oriented to self It should be noted that his chronic conditions includes dementia, which currently is at goal therapy. This complicates his clinical picture because it complicates the clinical workup. Interventions/Medications Received in the ED: None. Patient arrived on a diltiazem drip which was stopped patient appears to be rate controlled. All ordered laboratory studies independently reviewed and interpreted by myself and pertinent for: As noted in ED course EKG independently reviewed and interpreted and shows: Undetermined rhythm, patient was significant tremors complicating evaluation EKG at this time X-ray studies independently reviewed and interpreted by myself and shows: CXR with evidence of pulmonary edema with cardiomegaly CT/US imaging independently reviewed and interpreted by myself and shows: CT images available from OSH, therefore no repeat images performed at this time. Consults: At this time it was felt that the patient should be evaluated by Urology for possible intervention or admission. I had an interactive discussion with Urology consult service who advises admission to their service with Hospital Medicine consultation . Reassessment: On re-evaluation of patient, patient heart rate decreased and became more rate controlled without the addition of medication. Patient remained afebrile and hemodynamically stable. IMPRESSION: Hydronephrosis with right renal stone DISPOSITION: Admit Kelsea Gleason MD Emergency Medicine, PGY-3 ED Prescriptions None Sign Off Checklist Clinical Impression: Complete ED Disposition: Complete - Kelsea Gleason MD Resident 11/08/23 0321 Cosigned by Ash Pickens MD at 11/11/2023 12:11 PM EDT Associated attestation - Ash Pickens MD - 11/11/2023 12:11 PM EDT I saw and evaluated the patient with the resident/fellow. I discussed the case with the resident/fellow and agree with the findings and plan as documented. * ED Triage Notes - Dick Petersen, RN - 11/07/2023 9:28 PM EDT Pt presents from OSH due to obstructing kidney stone and UTI. Pt was also found to have a.fibb RVR and started on a dilt gtt at 5mg/hr. Pt GCS 14 at baseline. documented in this encounter Plan of Treatment Upcoming Encounters Date Type Department Care Team (Late st Contact Info) Description 02/28/2024 10:40 AM EST Hospital Encounter [facility] [address] [place] [address] [facility]as [facility] [address] [facility] [address] [place] [address] 02/28/2024 10:40 AM EST Anesthesia Event [facility] [address] [place] [id number] Fransico Mcgarry MD [address] [place] [address] 02/28/2024 10:40 AM EST - 02/28/2024 1:05 PM EST Surgery [facility] [address] [place] [address] John Vargas MD [address] [place] [address] URETEROSCOPY, WITH LASER LITHOTRIPSY [[id number] (CPT??)] 05/16/2024 3:45 PM EST Office Visit Medical Office Building Urology [address], [address] [place] [address] Mark Moore MD [address] [place] [address] Scheduled Procedures Name Priority Associated Diagnoses Date/Ti me URETEROSCOPY, WITH LASER LITHOTRIPSY Ureteral stone 02/28/2024 10:40 AM EST documented as of this encounter Procedures Procedure Name Priority Date/Time Associated Diagnosis Comments CBC W/O DIFFERENTIAL Pending Discharge 11/09/2023 2:45 AM EDT PHOSPHORUS, PLASMA Pending Discharge 11/09/2023 2:45 AM EDT MAGNESIUM, PLASMA Pending Discharge 11/09/2023 2:45 AM EDT BASIC METABOLIC PANEL, PLASMA Pending Discharge 11/09/2023 2:45 AM EDT ECG ADULT Routine 11/08/2023 7:24 PM EDT LACTATE, VENOUS STAT 11/08/2023 11:37 AM EDT ECG ADULT Routine 11/08/2023 8:14 AM EDT XR CHEST 1 VIEW STAT 11/07/2023 10:56 PM EDT SEND DORY MESSAGE STAT 11/07/2023 10:30 PM EDT ED HIV 1/2 ANTIBODY/ANTIGEN SCREEN WITH REFLEX TO HIV I/II DIFFERENTIATION STAT 11/07/2023 10:30 PM EDT URINALYSIS WITH REFLEX MICROSCOPIC STAT 11/07/2023 10:30 PM EDT URINE VELEZ PANEL STAT 11/07/2023 10:30 PM EDT URINALYSIS MICROSCOPIC FOR UA REFLEX STAT 11/07/2023 10:30 PM EDT ED PROTOCOL HIV 1/2 ANTIBODY/ANTIGEN SCREEN W/REFLEX TO HIV 1/2 ANTIBODY DIFFERENTIATION STAT 11/07/2023 10:30 PM EDT HEPATITIS C ANTIBODY - ED W/REFLEX TO HCV QUANT PCR STAT 11/07/2023 10:30 PM EDT URINALYSIS WITH REFLEX MICROSCOPIC STAT 11/07/2023 10:30 PM EDT CBC WITH AUTO DIFFERENTIAL STAT 11/07/2023 10:30 PM EDT URINE CULTURE STAT 11/07/2023 10:30 PM EDT MAGNESIUM, PLASMA Add-On 11/07/2023 10:30 PM EDT LIPASE, PLASMA STAT 11/07/2023 10:30 PM EDT BLOOD GAS PANEL, VENOUS STAT 11/07/2023 10:30 PM EDT COMPREHENSIVE METABOLIC PANEL, PLASMA STAT 11/07/2023 10:30 PM EDT ECG ADULT STAT 11/07/2023 9:57 PM EDT POCT GLUCOSE METER UNSOLICITED RESULTS Routine 11/07/2023 9:37 PM EDT documented in this encounter Results * Phosphorus (11/09/2023 2:45 AM EDT) Phosphorus, Plasma 3.4 2.5 - 4.5 mg/dL 11/09/2023 3:36 AM EDT [facility] Blood Venous blood specimen / Unknown Venipuncture / Unknown 11/09/2023 2:45 AM EDT 11/09/2023 3:07 AM EDT Mark Moore MD LAB BLOOD ORDERABLES Final Res ult Performing Organization Address [facility]/ZIP Co de Phone Number [facility] [address] [place] [address] * Magnesium (11/09/2023 2:45 AM EDT) Magnesium, Plasma 2.2 1.9 - 2.4 mg/dL 11/09/2023 3:36 AM EDT [facility] Blood Venous blood specimen / Unknown Venipuncture / Unknown 11/09/2023 2:45 AM EDT 11/09/2023 3:07 AM EDT Mark Moore MD LAB BLOOD ORDERABLES Final Res ult Performing Organization Address City/[facility] Co de Phone Number [facility] [address] [place] [address] * (ABNORMAL) Basic metabolic panel (11/09/2023 2:45 AM EDT) Glucose, Plasma 119(H) 74 - 99 mg/dL 11/09/2023 3:36 AM EDT [facility] BUN, Plasma 15 8 - 23 mg/dL 11/09/2023 3:36 AM EDT [facility] Creatinine, Plasma 1.25(H) 0.70 - 1.20 mg/dL 11/09/2023 3:36 AM EDT [facility] BUN/Creatinine Ratio 12 11/09/2023 3:36 AM EDT [facility] Sodium, Plasma 140 136 - 145 mmol/L 11/09/2023 3:36 AM EDT [facility] Potassium, Plasma 3.7 3.7 - 4.8 mmol/L 11/09/2023 3:36 AM EDT [facility] Chloride, Plasma 103 97 - 107 mmol/L 11/09/2023 3:36 AM EDT [facility] CO2, Plasma 27 22 - 29 mmol/L 11/09/2023 3:36 AM EDT [facility] Anion Gap 10 6 - 16 mmol/L 11/09/2023 3:36 AM EDT [facility] Total Calcium, Plasma 8.8(L) 8.9 - 10.2 mg/dL 11/09/2023 3:36 AM EDT [facility] eGFRcr 59.3 mL/min/1.7 3m*2 11/09/2023 3:36 AM EDT [facility] Comment:Reported eGFRcr in m L/min/1.73m2 is based the CKD-EPI 2020 equation that does not use a race coefficient. Blood Venous blood specimen / Unknown Venipuncture / Unknown 11/09/2023 2:45 AM EDT 11/09/2023 3:07 AM EDT us Mark Moore MD LAB BLOOD ORDERABLES Final Res ult Performing Organization Address City/State/[facility] Co de Phone Number [facility] [address] [place] [phone] * (ABNORMAL) Hemogram (CBC) (11/09/2023 2:45 AM EDT) WBC Count 9.35 3.70 - 10.30 10*3/uL LAB HEMATOLOGY METHOD 11/09/2023 2:58 AM EDT [facility] RBC Count 3.71(L) 4.60 - 6.10 10*6/uL LAB HEMATOLOGY METHOD 11/09/2023 2:58 AM EDT [facility] HGB 10.2(L) 13.7 - 17.5 g/dL LAB HEMATOLOGY METHOD 11/09/2023 2:58 AM EDT [facility] HCT 33.8(L) 40.0 - 51.0 % LAB HEMATOLOGY METHOD 11/09/2023 2:58 AM EDT [facility] Platelet Count 244 155 - 369 10*3/uL LAB HEMATOLOGY METHOD 11/09/2023 2:58 AM EDT [facility] MCV 91 79 - 98 fL LAB HEMATOLOGY METHOD 11/09/2023 2:58 AM EDT [facility] MCH 27.5 26.0 - 32.0 pg LAB HEMATOLOGY METHOD 11/09/2023 2:58 AM EDT [facility] MCHC 30.2(L) 30.7 - 35.5 g/dL LAB HEMATOLOGY METHOD 11/09/2023 2:58 AM EDT [facility] RDW 16.8(H) 11.5 - 14.5 % LAB HEMATOLOGY METHOD 11/09/2023 2:58 AM EDT [facility] MPV 9.3 8.8 - 12.5 fL LAB HEMATOLOGY METHOD 11/09/2023 2:58 AM EDT [facility] nRBC 0.0 <=0.0 per 100 WBCs LAB HEMATOLOGY METHOD 11/09/2023 2:58 AM EDT [facility] Blood Venous blood specimen / Unknown Venipuncture / Unknown 11/09/2023 2:45 AM EDT 11/09/2023 2:56 AM EDT Mark Moore MD LAB BLOOD ORDERABLES Final Res ult [facility] [address] [place], [place] [id number] * ECG Adult (11/08/2023 7:24 PM EDT) EKG DIAGNOSIS CLASS Abnormal MUSE ECG Ventricular Rate 118 BPM MUSE ECG QRSD Interval 142 ms MUSE ECG QT Interval 288 ms MUSE ECG QTC Interval 403 ms MUSE ECG R [place] 134 degrees MUSE ECG T Wave [place] -23 degrees MUSE ECG Diagnosis Atrial fibrillation MUSE ECG Diagnosis with rapid ventricular response MUSE ECG Diagnosis with premature ventricular or aberrantly conducted complexes MUSE ECG Diagnosis Right bundle branch block MUSE ECG Diagnosis T wave abnormality, consider lateral ischemia MUSE ECG Diagnosis Abnormal ECG MUSE ECG Diagnosis Confirmed by Storm Nevarez ([id number]) on 11/09/2023 9:15:41 PM MUSE ECG 11/08/2023 7:24 PM EDT 11/09/2023 9:15 PM EDT Mark Moore MD ECG ORDERABLES Final Result Performing Organization Address City/[facility]/ZIP Co de Phone Number MUSE ECG * Lactate, venous (11/08/2023 11:37 AM EDT) Lactate, Venous, Whole Blood 1.1 0.5 - 2.2 mmol/L LAB HEMATOLOGY METHOD 11/08/2023 11:50 AM EDT [facility] Blood Venous blood specimen / Unknown Venipuncture / Unknown 11/08/2023 11:37 AM EDT 11/08/2023 11:48 AM EDT us Mark Moore MD LAB BLOOD ORDERABLES Final Res ult Performing Organization Address City/[facility] Co de Phone Number [facility] [address] [place] [address] * ECG Adult (11/08/2023 8:14 AM EDT) EKG DIAGNOSIS CLASS Abnormal MUSE ECG Ventricular Rate 78 BPM MUSE ECG QRSD Interval 148 ms MUSE ECG QT Interval 412 ms MUSE ECG QTC Interval 469 ms MUSE ECG R [place] 130 degrees MUSE ECG T Wave [place] -6 degrees MUSE ECG Diagnosis Coarse MUSE ECG Diagnosis Atrial fibrillation MUSE ECG Diagnosis with premature ventricular or aberrantly conducted complexes MUSE ECG Diagnosis Right bundle branch block MUSE ECG Diagnosis ST abnormality and MUSE ECG Diagnosis T wave abnormality, consider lateral ischemia MUSE ECG Diagnosis Abnormal ECG MUSE ECG Diagnosis Confirmed by Chivo Kohler ([id number]) on 11/08/2023 8:45:09 AM MUSE ECG 11/08/2023 8:14 AM EDT 11/08/2023 8:45 AM EDT us Jim Ramirez APRN ECG ORDERABLES Final Resu lt MUSE ECG * XR Chest 1 View (11/07/2023 10:56 PM EDT) Anatomical Region Laterality Modality Chest Digital Radiogra phy Impressions 11/08/2023 12:30 AM EDT Cardiomegaly with mild pulmonary vascular congestion. CRITICAL RESULT: ?? No. COMMUNICATION: Per this written report. Preliminary report signed by Tesha Mota MD on 11/07/2023 11:58 PM By electronically signing this report, I, the attending physician, attest that I have personally reviewed the images/data for the above examination(s) and agree with the final edited report. Drafted by Tesha Mota MD on 11/07/2023 11:56 PM Final report signed by Fransico Rowe MD on 11/08/2023 12:30 AM Narrative 11/08/2023 12:30 AM EDT CLINICAL INDICATION: preop, tachy arrhythmia TECHNIQUE: XR CHEST 1 VIEW COMPARISON: Outside chest radiograph 01/17/2018. FINDINGS: Enlarged cardiomediastinal silhouette. Hypoventilatory changes. Mild pulmonary vascular congestion. Linear right midlung atelectasis. No large pleural effusion or pneumothorax. No acute osseous findings. Procedure Note Fransico Rowe MD - 11/08/2023 CLINICAL INDICATION: preop, tachy arrhythmia TECHNIQUE: XR CHEST 1 VIEW COMPARISON: Outside chest radiograph 01/17/2018. FINDINGS: Enlarged cardiomediastinal silhouette. Hypoventilatory changes. Mildpulmonary vascular congestion. Linear right midlung atelectasis. No largepleural effusion or pneumothorax. No acute osseous findings. IMPRESSION: Cardiomegaly with mild pulmonary vascular congestion. CRITICAL RESULT: No. COMMUNICATION: Per this written report. Preliminary report signed by Tesha Mota MD on 11/07/2023 11:58 PM By electronically signing this report, I, the attending physician, attestthat I have personally reviewed the images/data for the aboveexamination(s) and agree with the final edited report. Drafted by Tesha Mota MD on 11/07/2023 11:56 PM Final report signed by Fransico Rowe MD on 11/08/2023 12:30 AM us Ash Pickens MD IMG XR PROCEDURES Final Re sult * Magnesium (11/07/2023 10:30 PM EDT) Magnesium, Plasma 2.0 1.9 - 2.4 mg/dL 11/08/2023 8:11 AM EDT [facility] Blood Venous blood specimen / Unknown Venipuncture / Unknown 11/07/2023 10:30 PM EDT 11/07/2023 10:35 PM EDT Jim Jef Ramirez APRN LAB BLOOD ORDERABLES Final Result Performing Organization Address [facility] Co de Phone Number [facility] [address] [place] [address] * SEND DORY MESSAGE (11/07/2023 10:30 PM EDT) Urine Urine specimen from urinary conduit / Unknown Non-blood Collection / Unknown 11/07/2023 10:30 PM EDT 11/07/2023 10:46 PM EDT Ash Pickens MD LAB URINE ORDERABLES Final Result Performing Organization Address [facility] de Phone Number [facility] [address] [place] [address] * (ABNORMAL) Urine Culture (11/07/2023 10:30 PM EDT) [facility] Culture <10,000 CFU/mL - biotype 1 Gram Negative Tk(A) 11/09/2023 8:27 AM EDT [facility] Culture <10,000 CFU/mL - biotype 2 Gram Negative Tk(A) 11/09/2023 8:27 AM EDT [facility] Urine Urine specimen from urinary conduit / Unknown Non-blood Collection / Unknown 11/07/2023 10:30 PM EDT 11/07/2023 10:46 PM EDT Ash Pickens MD LAB MICROBIOLOGY - GENERAL ORDERABLES Final Result Performing Organization Address City/[facility] Co de Phone Number [facility] [address] [place] [address] * Urinalysis Microscopic Examination (11/07/2023 10:30 PM EDT) Urine Urine specimen from urinary conduit / Unknown Non-blood Collection / Unknown 11/07/2023 10:30 PM EDT 11/07/2023 10:35 PM EDT Ash Pickens MD LAB URINE ORDERABLES Final Result Performing Organization Address [facility] de Phone Number [facility] [address] [place] [address] * ED HIV 1/2 Antibody/Antigen Screen w/Reflex to HIV 1/2 Differentiation (11/07/2023 10:30 PM EDT) HIV 1 & 2 Antibody/Antigen Screen Non Reactive Non Reactive 11/07/2023 11:29 PM EDT [facility] Comment:Screening for HIV 1 & 2 antibodies, and P24 antigen is NONREACTIVE. No confirmatory testing is required. Blood Venous blood specimen / Unknown Venipuncture / Unknown 11/07/2023 10:30 PM EDT 11/07/2023 10:46 PM EDT Ash Pickens MD LAB BLOOD ORDERABLES Final Result Performing Organization Address [facility] de Phone Number [facility] [address] [place] [address] * Urine Velez Panel (11/07/2023 10:30 PM EDT) Pathologist [facility] [place] Extra Sent for Culture 11/08/2023 12:02 AM EDT [facility] Urine Urine specimen from urinary conduit / Unknown Non-blood Collection / Unknown 11/07/2023 10:30 PM EDT 11/07/2023 10:46 PM EDT Ash Pickens MD LAB URINE ORDERABLES Final Result Performing Organization Address [facility] de Phone Number [facility] [address] [place] [address] * (ABNORMAL) Urinalysis with reflex microscopic (Culture NOT Included) (11/07/2023 10:30 PM EDT) Color, Urine [place] LAB URINALYSIS - AUTOMATED METHOD 11/07/2023 10:59 PM EDT [facility] Clarity, Urine Cloudy LAB URINALYSIS - AUTOMATED METHOD 11/07/2023 10:59 PM EDT [facility] Spec [place], Urine 1.020 <=1.005 to >=1.030 LAB URINALYSIS - AUTOMATED METHOD 11/07/2023 10:59 PM EDT [facility] pH, Urine 7.0 4.5 to 8 LAB URINALYSIS - AUTOMATED METHOD 11/07/2023 10:59 PM EDT [facility] Protein, Urine 100(A) Negative mg/dL LAB URINALYSIS - AUTOMATED METHOD 11/07/2023 10:59 PM EDT [facility] Glucose, Urine Negative Negative mg/dL LAB URINALYSIS - AUTOMATED METHOD 11/07/2023 10:59 PM EDT [facility] Ketones, Urine Negative Negative mg/dL LAB URINALYSIS - AUTOMATED METHOD 11/07/2023 10:59 PM EDT [facility] Blood, Urine Large(A) Negative LAB URINALYSIS - AUTOMATED METHOD 11/07/2023 10:59 PM EDT [facility] Bilirubin, Urine Negative Negative LAB URINALYSIS - AUTOMATED METHOD 11/07/2023 10:59 PM EDT [facility] Urobilinogen, Urine 0.2 0.2 to 1.0 mg/dL LAB URINALYSIS - AUTOMATED METHOD 11/07/2023 10:59 PM EDT [facility] Leukocytes, Urine Moderate(A) Negative LAB URINALYSIS - AUTOMATED METHOD 11/07/2023 10:59 PM EDT [facility] Nitrite, Urine Negative Negative LAB URINALYSIS - AUTOMATED METHOD 11/07/2023 10:59 PM EDT [facility] RBC, Urine >50(A) 0 to 3 /HPF LAB URINALYSIS - AUTOMATED METHOD 11/07/2023 10:59 PM EDT [facility] Comment:This result was prev iously suppressed from the chart. WBC, Urine >50(A) 0 to 5 /HPF LAB URINALYSIS - AUTOMATED METHOD 11/07/2023 10:59 PM EDT [facility] Comment:This result was prev iously suppressed from the chart. Squamous Epithelial Cells 0 - 2 0 to 5 /HPF LAB URINALYSIS - AUTOMATED METHOD 11/07/2023 10:59 PM EDT [facility] Comment:This result was prev iously suppressed from the chart. Hyaline Casts 0 - 2 0 to 5 /LPF LAB URINALYSIS - AUTOMATED METHOD 11/07/2023 10:59 PM EDT [facility] Comment:This result was prev iously suppressed from the chart. Bacteria, Urine Negative Negative LAB URINALYSIS - AUTOMATED METHOD 11/07/2023 10:59 PM EDT [facility] Comment:This result was prev iously suppressed from the chart. Urine Urine specimen from urinary conduit / Unknown Non-blood Collection / Unknown 11/07/2023 10:30 PM EDT 11/07/2023 10:35 PM EDT Narrative [facility]ALTH[facility]ARE [facility] - 11/07/2023 10:59 PM EDT Urinalysis dipstick results may be inaccurate due to specimen color or an interfering substance in the specimen. us Ash Pickens MD LAB URINE ORDERABLES Final Result Performing Organization Address City/[facility]/ZIP Co de Phone Number [facility] [address] [place] [address] * Hepatitis C Antibody - ED (11/07/2023 10:30 PM EDT) Pathologist [facility] [place] Hepatitis C Antibody Negative Negative 11/07/2023 11:29 PM EDT [facility] Blood Venous blood specimen / Unknown Venipuncture / Unknown 11/07/2023 10:30 PM EDT 11/07/2023 10:46 PM EDT Ash Pickens MD LAB BLOOD ORDERABLES Final Result Performing Organization Address City/[facility] Co de Phone Number [facility] [address] [place] [address] * (ABNORMAL) Blood gas panel, venous (11/07/2023 10:30 PM EDT) pH, Venous 7.46(H) 7.32 - 7.43 LAB HEMATOLOGY METHOD 11/07/2023 10:47 PM EDT [facility] pCO2, Venous 44 40 - 55 mmHg LAB HEMATOLOGY METHOD 11/07/2023 10:47 PM EDT [facility] pO2, Venous 33 25 - 40 mmHg LAB HEMATOLOGY METHOD 11/07/2023 10:47 PM EDT [facility] SO2, Measured, Venous 58(L) 65 - 80 % LAB HEMATOLOGY METHOD 11/07/2023 10:47 PM EDT [facility] Base Excess, Venous 6.5(H) -2.0 - 3.0 mmol/L LAB HEMATOLOGY METHOD 11/07/2023 10:47 PM EDT [facility] Bicarbonate, Calculated, Venous 31(H) 22 - 26 mmol/L LAB HEMATOLOGY METHOD 11/07/2023 10:47 PM EDT [facility] Hematocrit, Whole Blood 33.8(L) 40.0 - 51.0 % LAB HEMATOLOGY METHOD 11/07/2023 10:47 PM EDT [facility] Sodium, Whole Blood 141 136 - 145 mmol/L LAB HEMATOLOGY METHOD 11/07/2023 10:47 PM EDT [facility] Potassium, Whole Blood 3.2(L) 3.6 - 4.9 mmol/L LAB HEMATOLOGY METHOD 11/07/2023 10:47 PM EDT [facility] Chloride, Whole Blood 99 97 - 107 mmol/L LAB HEMATOLOGY METHOD 11/07/2023 10:47 PM EDT [facility] Glucose, Whole Blood 132(H) 74 - 99 mg/dL LAB HEMATOLOGY METHOD 11/07/2023 10:47 PM EDT [facility] Lactate, Venous, Whole Blood 1.6 0.5 - 2.2 mmol/L LAB HEMATOLOGY METHOD 11/07/2023 10:47 PM EDT [facility] Ionized Calcium, Whole Blood 4.4(L) 4.6 - 5.1 mg/dL LAB HEMATOLOGY METHOD 11/07/2023 10:47 PM EDT [facility] Blood Venous blood specimen / Unknown Venipuncture / Unknown 11/07/2023 10:30 PM EDT 11/07/2023 10:45 PM EDT Ash Pickens MD LAB BLOOD ORDERABLES Final Result [facility] [address] [place] [id number] * Lipase (11/07/2023 10:30 PM EDT) Lipase, Plasma 20 19 - 63 U/L 11/07/2023 10:55 PM EDT [facility] Blood Venous blood specimen / Unknown Venipuncture / Unknown 11/07/2023 10:30 PM EDT 11/07/2023 10:35 PM EDT us Ash Pickens MD LAB BLOOD ORDERABLES Final Result [facility] [address] [place] [address] * (ABNORMAL) CBC w/diff (11/07/2023 10:30 PM EDT) WBC Count 10.31(H) 3.70 - 10.30 10*3/uL LAB HEMATOLOGY METHOD 11/07/2023 10:38 PM EDT [facility] RBC Count 3.96(L) 4.60 - 6.10 10*6/uL LAB HEMATOLOGY METHOD 11/07/2023 10:38 PM EDT [facility] HGB 10.9(L) 13.7 - 17.5 g/dL LAB HEMATOLOGY METHOD 11/07/2023 10:38 PM EDT [facility] HCT 35.1(L) 40.0 - 51.0 % LAB HEMATOLOGY METHOD 11/07/2023 10:38 PM EDT [facility] Platelet Count 260 155 - 369 10*3/uL LAB HEMATOLOGY METHOD 11/07/2023 10:38 PM EDT [facility] MCV 89 79 - 98 fL LAB HEMATOLOGY METHOD 11/07/2023 10:38 PM EDT [facility] MCH 27.5 26.0 - 32.0 pg LAB HEMATOLOGY METHOD 11/07/2023 10:38 PM EDT [facility] MCHC 31.1 30.7 - 35.5 g/dL LAB HEMATOLOGY METHOD 11/07/2023 10:38 PM EDT [facility] RDW 16.4(H) 11.5 - 14.5 % LAB HEMATOLOGY METHOD 11/07/2023 10:38 PM EDT [facility] MPV 9.4 8.8 - 12.5 fL LAB HEMATOLOGY METHOD 11/07/2023 10:38 PM EDT [facility] nRBC 0.0 <=0.0 per 100 WBCs LAB HEMATOLOGY METHOD 11/07/2023 10:38 PM EDT [facility] Differential Type Automated LAB HEMATOLOGY METHOD 11/07/2023 10:38 PM EDT [facility] Neutrophils % 85.0 % LAB HEMATOLOGY METHOD 11/07/2023 10:38 PM EDT [facility] Lymphocytes % 6.0 % LAB HEMATOLOGY METHOD 11/07/2023 10:38 PM EDT [facility] Monocytes % 5.0 % LAB HEMATOLOGY METHOD 11/07/2023 10:38 PM EDT [facility] Eosinophils % 3.0 % LAB HEMATOLOGY METHOD 11/07/2023 10:38 PM EDT [facility] Basophils % 0.0 % LAB HEMATOLOGY METHOD 11/07/2023 10:38 PM EDT [facility] Immature Granulocytes % 1.0 % LAB HEMATOLOGY METHOD 11/07/2023 10:38 PM EDT [facility] Neutrophils Absolute 8.72(H) 1.60 - 6.10 10*3/uL LAB HEMATOLOGY METHOD 11/07/2023 10:38 PM EDT [facility] Lymphocytes Absolute 0.65(L) 1.20 - 3.90 10*3/uL LAB HEMATOLOGY METHOD 11/07/2023 10:38 PM EDT [facility] Monocytes Absolute 0.54 0.30 - 0.90 10*3/uL LAB HEMATOLOGY METHOD 11/07/2023 10:38 PM EDT [facility] Eosinophils Absolute 0.31 0.00 - 0.50 10*3/uL LAB HEMATOLOGY METHOD 11/07/2023 10:38 PM EDT [facility] Basophils Absolute 0.04 0.00 - 0.10 10*3/uL LAB HEMATOLOGY METHOD 11/07/2023 10:38 PM EDT [facility] Immature Granulocytes Absolute 0.05 0.00 - 0.06 10*3/uL LAB HEMATOLOGY METHOD 11/07/2023 10:38 PM EDT [facility] Blood Venous blood specimen / Unknown Venipuncture / Unknown 11/07/2023 10:30 PM EDT 11/07/2023 10:35 PM EDT Narrative [facility]ALTHCARE [facility] - 11/07/2023 10:38 PM EDT Therapeutic decision making should be based on absolute values, rather than percentages. us Ash Pickens MD LAB BLOOD ORDERABLES Final Result [facility] [address] [place] [address] * (ABNORMAL) CMP (11/07/2023 10:30 PM EDT) Glucose, Plasma 135(H) 74 - 99 mg/dL 11/07/2023 10:55 PM EDT [facility] BUN, Plasma 16 8 - 23 mg/dL 11/07/2023 10:55 PM EDT [facility] Creatinine, Plasma 1.17 0.70 - 1.20 mg/dL 11/07/2023 10:55 PM EDT [facility] BUN/Creatinine Ratio 14 11/07/2023 10:55 PM EDT [facility] Sodium, Plasma 138 136 - 145 mmol/L 11/07/2023 10:55 PM EDT [facility] Potassium, Plasma 3.4(L) 3.7 - 4.8 mmol/L 11/07/2023 10:55 PM EDT [facility] Chloride, Plasma 98 97 - 107 mmol/L 11/07/2023 10:55 PM EDT [facility] CO2, Plasma 28 22 - 29 mmol/L 11/07/2023 10:55 PM EDT [facility] Anion Gap 12 6 - 16 mmol/L 11/07/2023 10:55 PM EDT [facility] Total Calcium, Plasma 8.8(L) 8.9 - 10.2 mg/dL 11/07/2023 10:55 PM EDT [facility] Total Protein 7.1 6.3 - 7.9 g/dL 11/07/2023 10:55 PM EDT [facility] Albumin, Plasma 3.1(L) 3.5 - 5.2 g/dL 11/07/2023 10:55 PM EDT [facility] AST, Plasma 27 10 - 50 U/L 11/07/2023 10:55 PM EDT [facility] ALT, Plasma 40 10 - 50 U/L 11/07/2023 10:55 PM EDT [facility] Alkaline Phosphatase, Plasma 82 40 - 115 U/L 11/07/2023 10:55 PM EDT [facility] Total Bilirubin, Plasma 0.3 0.2 - 1.1 mg/dL 11/07/2023 10:55 PM EDT [facility] eGFRcr 64.2 mL/min/1.7 3m*2 11/07/2023 10:55 PM EDT [facility] Comment:Reported eGFRcr in m L/min/1.73m2 is based the CKD-EPI 2020 equation that does not use a race coefficient. Blood Venous blood specimen / Unknown Venipuncture / Unknown 11/07/2023 10:30 PM EDT 11/07/2023 10:35 PM EDT Ash Pickens MD LAB BLOOD ORDERABLES Final Result Performing Organization Address [facility] Co de Phone Number [facility] [address] [place] [address] * EKG now - STAT (adult) (11/07/2023 9:57 PM EDT) EKG DIAGNOSIS CLASS Abnormal MUSE ECG Ventricular Rate 125 BPM MUSE ECG QRSD Interval 160 ms MUSE ECG QT Interval 420 ms MUSE ECG QTC Interval 606 ms MUSE ECG R [place] 135 degrees MUSE ECG T Wave [place] -10 degrees MUSE ECG Diagnosis Poor data quality, interpretation may be adversely affected MUSE ECG Diagnosis Poor data quality MUSE ECG Diagnosis Irregular MUSE ECG Diagnosis Wide QRS tachycardia MUSE ECG Diagnosis unclear atrial rhythm MUSE ECG Diagnosis Right axis deviation MUSE ECG Diagnosis Right bundle branch block MUSE ECG Diagnosis Anterior infarct MUSE ECG Diagnosis , age undetermined MUSE ECG Diagnosis T wave abnormality, consider lateral ischemia MUSE ECG Diagnosis vs. artifact MUSE ECG Diagnosis Abnormal ECG MUSE ECG Diagnosis Recommend repeat ECG MUSE ECG Diagnosis Confirmed by Chivo Kohler ([id number]) on 11/07/2023 10:14:20 PM MUSE ECG 11/07/2023 9:57 PM EDT 11/07/2023 10:14 PM EDT Ash Pickens MD ECG ORDERABLES Final Resu lt Performing Organization Address [facility] Co de Phone Number MUSE ECG * (ABNORMAL) POCT glucose meter (11/07/2023 9:37 PM EDT) POCT Glucose 130(H) 74 - 99 mg/dL 11/07/2023 9:39 PM EDT [facility] Comment:Accuracy of a glucos e result obtained from a capillary whole blood specimen relies upon adequate, non-compromised capillary blood flow. If the capillary glucose result is not consistent with the patient's clinical signs and symptoms, glucose testing should be repeated with either an arterial or venous sample on the glucometer or sent to the main labortory for testing. Comment 11/07/2023 9:39 PM EDT [facility] [employer] ID Liliana Villeda 11/07/2023 9:39 PM EDT [facility] Device ID [id number] 11/07/2023 9:39 PM EDT [facility] Specimen Type POC Capillary 11/07/2023 9:39 PM EDT [facility] Blood Capillary blood specimen / Unknown 11/07/2023 9:37 PM EDT 11/07/2023 9:39 PM EDT us Generic Provider Poct LAB POINT OF CARE TEST DOCKED DEVICE UNSOLICITED RESULTS Final Result Performing Organization Address City/State/[facility] Co de Phone Number [facility] [address] [place] [address] documented in this encounter Visit Diagnoses Diagnosis Hydronephrosis with urinary obstruction due to ureteral calculus- Primary Hydronephrosis with renal and ureteral calculus obstruction Hydronephrosis with renal and ureteral calculus obstruction Ureteral stone Calculus of ureter documented in this encounter Admitting Diagnoses Diagnosis Hydronephrosis with urinary obstruction due to ureteral calculus Hydronephrosis with renal and ureteral calculus obstruction documented in this encounter Administered Medications Inactive Administered Medications - up to 3 most recent administrations Medication Order MAR Action Action Date Dose Rate Site acetaminophen (Tylenol) tablet 1,000 mg 1,000 mg, Oral, Every 6 hours scheduled, First dose on Mon11/08/23 at 0250, Until Discontinued, Routine Given 11/09/2023 11:49 AM EDT 1,000 mg Given 11/08/2023 12:06 PM EDT 1,000 mg carvedilol (Coreg) tablet 25 mg 25 mg, Oral, 2 times daily, First dose on Mon11/08/23 at 0450, Until Discontinued, Routine Given 11/09/2023 9:45 AM EDT 25 mg Given 11/08/2023 8:29 PM EDT 25 mg Given 11/08/2023 4:59 AM EDT 25 mg cefTRIAXone (Rocephin) 2 g in sodium chloride 0.9% 100 mL IVPB (Mini-Bag Plus) 2 g, Intravenous, Every 24 hours, First dose on Mon11/08/23 at 0250, Until Discontinued, Routine New Bag 11/09/2023 2:04 AM EDT 2 g 220 mL/hr New Bag 11/08/2023 3:25 AM EDT 2 g 220 mL/hr doxazosin (Cardura) tablet 1 mg 1 mg, Oral, Daily, First dose on Mon11/08/23 at 1115, Until Discontinued, Routine Given 11/09/2023 9:45 AM EDT 1 mg Given 11/08/2023 12:06 PM EDT 1 mg heparin (porcine) injection 5,000 Units 5,000 Units, Subcutaneous, Every 8 hours scheduled, First dose on Mon11/08/23 at 0600, Until Discontinued, RoutineIndications:Prophylaxi s of Venous Thromboembolism Given 11/09/2023 6:08 AM EDT 5,000 Units Right Upper Arm (Back) Given 11/08/2023 9:18 PM EDT 5,000 Units R ight Upper Arm (Back) Given 11/08/2023 6:28 AM EDT 5,000 Units R ight Lower Abdomen lactated Ringer's infusion 42 mL/hr, Intravenous, Continuous, Starting on Mon11/08/23 at 0250, Until Mon11/08/23 at 1110, Routine Rate/Dose Change 11/08/2023 4:49 AM EDT 42 mL/hr 42 mL/hr New Bag 11/08/2023 3:33 AM EDT 84 mL/hr 84 mL/hr methocarbamol (Robaxin) tablet 750 mg 750 mg, Oral, 4 times daily, First dose on Mon11/08/23 at 0900, Until Discontinued, Routine Given 11/09/2023 9:45 AM EDT 750 mg Given 11/08/2023 9:17 PM EDT 750 mg Given 11/08/2023 8:39 AM EDT 750 mg metoprolol tartrate (Lopressor) injection 5 mg 5 mg, Intravenous, Every 5 min PRN, 3 doses, Starting on Mon11/08/23 at 2016, Until Mon11/08/23 at 2204, Routine, Heart rate > 120 Given 11/08/2023 10:04 PM EDT 5 mg Given 11/08/2023 9:23 PM EDT 5 mg Given 11/08/2023 8:39 PM EDT 5 mg pantoprazole (Protonix) injection 40 mg 40 mg, Intravenous, Daily, First dose on Mon11/08/23 at 0900, Until Discontinued, Routine Given 11/09/2023 9:44 AM EDT 40 mg Given 11/08/2023 8:39 AM EDT 40 mg potassium chloride CR (Klor-Con) ER tablet 30 mEq 30 mEq, Oral, Once, 1 dose, On Mon11/09/23 at 1000, Routine Given 11/09/2023 10:24 AM EDT 30 mEq potassium chloride CR (Klor-Con) ER tablet 40 mEq 40 mEq, Oral, Once, 1 dose, On Mon11/08/23 at 0905, Routine Given 11/08/2023 9:49 AM EDT 40 mEq sodium chloride 0.9 % flush 10 mL 10 mL, Intravenous, Every 12 hours, First dose on Mon11/08/23 at 0250, Until Discontinued, Routine Given 11/09/2023 1:51 AM EDT 10 mL Given 11/08/2023 3:46 PM EDT 10 mL Given 11/08/2023 3:29 AM EDT 10 mL sodium chloride 0.9 % flush 10 mL 10 mL, Intravenous, As needed, Starting on Mon11/08/23 at 0243, Until Mon11/09/23 at 1909, Routine, line care sodium chloride tablet 2 g 2 g, Oral, Daily, First dose on Mon11/08/23 at 1115, Until Discontinued, Routine Given 11/09/2023 9:47 AM EDT 2 g Given 11/08/2023 12:06 PM EDT 2 g documented in this encounter Active and Recently Administered Medications Times are shown in EDT. Scheduled Medication Order 11/07/2023 11/08/2023 11/09/2023 acetaminophen (Tylenol) tablet 1,000 mg 1,000 mg, Oral, Every 6 hours scheduled, First dose on Mon11/08/23 at 0250, Until Discontinued, Routine 0325 (Not Given - Provider: Lucy Shrestha RN - Reason: Patient/family refused)0631 (Not Given - Provider: Lucy Shrestha RN - Reason: Patient/family refused)1206 (Given - Provider: Jeb Jones RN)1758 (Not Given - Provider: Jeb Jones RN - Reason: Patient/family refused)2313 (Not Given - Provider: Stacy Goncalves - Reason: Patient/family refused) 0607 (Not Given - Provider: Stacy Goncalves - Reason: Patient/family refused)1149 (Given - Provider: Marycruz Bosch, TAMIAC)1800 (Canceled Entry - Provider: Automatic Discharge Provider - Comment: Automatically canceled at discontinue of medication order) carvedilol (Coreg) tablet 25 mg 25 mg, Oral, 2 times daily, First dose on Mon11/08/23 at 0450, Until Discontinued, Routine 0459 (Given - Provider: Lucy Shrestha RN)2029 (Given - Provider: Stacy Goncalves) 0945 (Given - Provider: Marycruz Bosch RN) cefTRIAXone (Rocephin) 2 g in sodium chloride 0.9% 100 mL IVPB (Mini-Bag Plus) 2 g, Intravenous, Every 24 hours, First dose on Mon11/08/23 at 0250, Until Discontinued, Routine 0325 (New Bag - Provider: Lucy Shrestha RN)0400 (Stopped - Provider: Lucy Shrestha RN) 0204 (New Bag - Provider: Stacy Goncalves)0305 (Stopped - Provider: Stacy Goncalves) doxazosin (Cardura) tablet 1 mg 1 mg, Oral, Daily, First dose on Mon11/08/23 at 1115, Until Discontinued, Routine 1206 (Given - Provider: Jeb Jones RN) 0945 (Given - Provider: Marycruz Bosch RN) heparin (porcine) injection 5,000 Units 5,000 Units, Subcutaneous, Every 8 hours scheduled, First dose on Mon11/08/23 at 0600, Until Discontinued, Routine 0628 (Given - Provider: Lucy Shrestha RN)1430 (Not Given - Provider: Jeb Jones RN - Reason: Patient/family refused)2118 (Given - Provider: Stacy Goncalves) 0608 (Given - Provider: Stacy Goncalves)1400 (Canceled Entry - Provider: Automatic Discharge Provider - Comment: Automatically canceled at discontinue of medication order) methocarbamol (Robaxin) tablet 750 mg 750 mg, Oral, 4 times daily, First dose on Mon11/08/23 at 0900, Until Discontinued, Routine 0839 (Given - Provider: Jeb Jones RN)1430 (Not Given - Provider: Jeb Jones RN - Reason: Patient/family refused)1758 (Not Given - Provider: Jeb Jones RN - Reason: Patient/family refused)2117 (Given - Provider: Stacy Goncalves) 0945 (Given - Provider: Marycruz Bosch, RN)1400 (Canceled Entry - Provider: Automatic Discharge Provider - Comment: Automatically canceled at discontinue of medication order)1800 (Canceled Entry - Provider: Automatic Discharge Provider - Comment: Automatically canceled at discontinue of medication order) pantoprazole (Protonix) injection 40 mg 40 mg, Intravenous, Daily, First dose on Mon11/08/23 at 0900, Until Discontinued, Routine 0839 (Given - Provider: Jeb Jones RN) 0944 (Given - Provider: Marycruz Bosch RN) potassium chloride CR (Klor-Con) ER tablet 30 mEq (COMPLETED) 30 mEq, Oral, Once, 1 dose, On Mon11/09/23 at 1000, Routine 1024 (Given - Provid er: Marycruz Bosch RN) potassium chloride CR (Klor-Con) ER tablet 40 mEq (COMPLETED) 40 mEq, Oral, Once, 1 dose, On Mon11/08/23 at 0905, Routine 0949 (Given - Provider: Jeb Jones RN) sodium chloride 0.9 % flush 10 mL(Linked Group 1) 10 mL, Intravenous, Every 12 hours, First dose on Mon11/08/23 at 0250, Until Discontinued, Routine 0329 (Given - Provider: Lucy Shrestha RN)1546 (Given - Provider: Jeb Jones RN) 0151 (Given - Provider: Stacy Goncalves)1450 (Canceled Entry - Provider: Automatic Discharge Provider - Comment: Automatically canceled at discontinue of medication order) sodium chloride tablet 2 g 2 g, Oral, Daily, First dose on Mon11/08/23 at 1115, Until Discontinued, Routine 1206 (Given - Provider: Jeb Jones RN) 0947 (Given - Provider: Marycruz Bosch RN) Continuous Medication Order 11/07/2023 11/08/2023 11/09/2023 lactated Ringer's infusion (CANCELED) 42 mL/hr, Intravenous, Continuous, Starting on Mon11/08/23 at 0250, Until Mon11/08/23 at 1110, Routine 0333 (New Bag - Provider: Lucy Shrestha RN)0449 (Rate/Dose Change - Provider: Lucy Shrestha, TAMICA)1147 (Stopped - Provider: Jeb Jones, TAMICA) PRN Medication Order 11/07/2023 11/08/2023 11/09/2023 metoprolol tartrate (Lopressor) injection 5 mg (COMPLETED) 5 mg, Intravenous, Every 5 min PRN, 3 doses, Starting on Mon11/08/23 at 2016, Until Mon11/08/23 at 2204, Routine, Heart rate > 120 2038 (Given - Provider: Celine Goncalves)2122 (Given - Provider: Stacy Goncalves)2203 (Given - Provider: Stacy Goncalves) sodium chloride 0.9 % flush 10 mL(Linked Group 1) 10 mL, Intravenous, As needed, Starting on Mon11/08/23 at 0243, Until Caryn 11/09/23 at 1909, Routine, line care Linked Groups Order Group 1: Insert peripheral IV (COMPLETED) Once, On Mon11/08/23 at 0244, For 1 occurrence And Saline lock IV (COMPLETED) Once, On Mon11/08/23 at 0244, For 1 occurrence And sodium chloride 0.9 % flush 10 mLJump to med 10 mL, Intravenous, Every 12 hours, First dose on Mon11/08/23 at 0250, Until Discontinued, Routine And sodium chloride 0.9 % flush 10 mLJump to med 10 mL, Intravenous, As needed, Starting on Mon11/08/23 at 0243, Until Caryn 11/09/23 at 1909, Routine, line care documented in this encounter Additional Health Concerns Assessment Noted Time A fall risk assessment has been complete d for the patient 10/06/2020 12:22 PM EDT A Body Mass Index follow-up plan has been documented for the patient 11/09/2023 2:06 PM EDT documented as of this encounter Care Teams Member Service Representative Relationship Specialty Start Date End Date Jeb Gonzalez MD [address] [place] [id number] PCP - General 10/06/20 documented as of this encounter
--- OUTSIDE RECORDS SUMMARY | 2024-02-27 10:43 | XMS_ITS | Referral Summary ---
[facility] Address [address] [address] Phone Care Team Providers Care Director Of Women'S Services Name Role Phone Salo Segovia MD, Kevin Hollingsworth Primary Care Provid er Allergies No known active allergies Medications * This document contains information received from the source organization and may not represent a complete record from that organization. acetaminophen Oral tablet Take 650 mg by mouth every 4 hours as needed for Pain (2 tabs for elevated temp/discomfor t). Active Aspirin 81 mg Take 81 mg by mouth daily. Active FLUoxetine (PROZAC) 40 mg capsule Take 40 mg by mouth 2 times daily. Active carvedilol (COREG) 25 mg Oral Tablet Take 25 mg by mouth 2 times daily. Active amantadine HCl (SYMMETREL) 100 mg Oral Capsule Take 100 mg by mouth 2 times daily. Active atorvastatin (LIPITOR) 10 mg Oral Tablet Take 10 mg by mouth daily. Active doxazosin (CARDURA) 2 mg Oral Tablet Take 2 mg by mouth daily. Active Saccharomyces boulardii (FLORASTOR) 250 mg Oral Capsule Take 250 mg by mouth 2 times daily. Active fUROsemide (LASIX) 40 mg Oral Tablet Take 40 mg by mouth every 12 hours. Active pantoprazole (PROTONIX) 40 mg Oral Tablet, Delayed Release (E.C.) Take 40 mg by mouth daily. Active potassium chloride (MICRO-K) 10 mEq Oral Capsule, Sustained Release Take 10 mEq by mouth 2 times daily. Active amLODIPine (NORVASC) 10 mg Oral Tablet Take 1 Tab by mouth daily. 30 Tab 8 Active Balsam [place] Oil (VENELEX) 87-788 mg/gram Top Ointment Apply 1 Dose topically 2 times daily. 1 Tube 8 Active Balsam [place]-Marathon Oil (VENELEX) 87-788 mg/gram Top Ointment Apply 1 Tube topically as needed for Other (topically). 1 Tube 8 Active lamoTRIgine (LAMICTAL) 25 mg Oral Tablet Take 1 Tab by mouth 2 times daily. 60 Tab 8 Active memantine (NAMENDA) 5 mg Oral Tablet Take 1 Tab by mouth 2 times daily. 60 Tab 8 Active risperiDONE (RISPERDAL) 3 mg Oral Tablet Take 1 Tab by mouth 2 times daily. 60 Tab 8 Active traZODone (DESYREL) 50 mg Oral Tablet Take 1 Tab by mouth nightly as needed for Sleep. 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, NYHA class 4 02/27/2015 Bilateral lower extremity edema 02/27/2015 Chronic major depressive disorder, recurrent epi sode 05/29/2014 Assessment & Plan (05/24/2017 12:18 PM EST): prozac Morbid obesity 05/29/2014 Morbid obesity due to excess calories Essential hypertension Chronic paranoid schizophrenia Assessment & Plan (05/24/2017 12:18 PM EST): tatum Coon Assessment & Plan (05/03/2017 2:38 PM EST): rakel Pulido Resolved Problems Problem Noted Date Diagnosed Date Resolved Date Cognitive decline 11/27/2018 09/28/2023 Primary insomnia 12/14/2017 09/28/2023 Suicidal ideation 07/10/2017 09/28/2023 MCI (mild cognitive impairment) 07/25/2016 09/28/2023 Acute cystitis with hematuria 06/01/2016 07/12/2017 Syncope 05/31/2016 07/12/2017 KARINA (acute kidney injury) 05/31/2016 Diarrhea in adult patient 05/31/2016 Hypovolemia due to dehydration 05/31/2016 05/03/2017 Hypertension 02/27/2015 09/28/2023 Acute right-sided CHF (conge stive heart failure) 02/27/2015 07/12/2017 Medication monitoring encounter 07/06/2014 09/28/2023 Schizophrenia 04/14/2014 09/28/2023 Moderate episode of recurren t major depressive disorder 07/25/2016 Perineal rash in male 2017 Immunizations Name Administration Dates Next Due Influenza Patient Reported 01/27/2015 Influenza Vaccine, Unspecified Formulation 01/17 Pneumococcal Conjugate Vaccine 13 Valent 017 Td (adult), preservative free 10/29/2013 Social History Tobacco Use Types Packs/Day Years Used Date Smoking Tobacco: Never Smokeless Tobacco: Never Alcohol Use Standard Drinks/Week Comments No 0 (1 standard drink = 0.6 oz pur e alcohol) Sex and Gender Information Value Date Recorded Sex Assigned at Not on file Legal Sex Male 7:45 PM EDT Gender Identity Not on file Sexual Orientation Not on file Last Filed Vital Signs Vital Sign Reading Time Taken Comments Blood Pressure 143/69 07/31/2017 7:00 PM EDT Pulse 74 07/31/2017 6:33 PM EDT Temperature 36.8 ??C (98.3 ??F) 07/31/2017 6:33 PM ED T Respiratory Rate 16 07/31/2017 6:33 PM EDT Oxygen Saturation 99% 07/31/2017 7:00 PM EDT Inhaled Oxygen Concentration - - Weight 108.9 kg (240 lb) 07/31/2017 3:45 PM EDT Height 182.9 cm (6') 07/31/2017 3:45 PM EDT Body Mass Index 32.55 07/31/2017 3:45 PM EDT Plan of Treatment Not on file Procedures Procedure Name Priority Date/Time Associated Diagnosis Comments FECAL HEME (FIT) CANCER SCREEN Routine 06/02/2016 12:00 PM EST from Last 3 Months or Most Recently Relevant to Health Maintenance Results * FECAL HEME SCREEN (06/02/2016 12:00 PM EST) Final Negative immunochemical fecal occult blood test Internal QC ok This test is not recommended to detect upper GI bleeding. [facility] Stool specimen (specimen) 06/02/2016 12:00 PM EST 06/02/2016 3:39 PM EST Narrative [facility] - 06/02/2016 3:39 PM EST From rectal tube sample. us Gabriele Soto MD IMMUNOLOGY ORDERABLES Final Result [facility] [address] [place] [address] from Last 3 Months or Most Recently Relevant to Health Maintenance Insurance [place] [address] [place] [address] [place] Advance Directives For more information, please contact: [phone] * Full Code (Latest Code Status on File) Date Activated Date Inactivated Comments 07/12/2017 2:24 PM 07/19/2017 6:59 PM * Full Code Date Activated Date Inactivated Comments 07/10/2017 11:07 PM 07/12/2017 2:15 PM * Full Code Date Activated Date Inactivated Comments 05/31/2016 12:29 PM 06/05/2016 6:41 PM * Full Code Date Activated Date Inactivated Comments 03/01/2015 12:17 PM 03/07/2015 9:26 PM Care Teams Director Of Women'S Services Relationship Specialty Start Date End Date Kevin Leong Sr., MD [address] [place] [phone] PCP - General Appellate Law Clerk 10/29/13
--- OUTSIDE RECORDS SUMMARY | 2024-02-27 10:43 | XMS_ITS | Encounter Summary ---
Author Organization [place] [address] Care Team Providers Care Workday Financials Consultant Name Role Phone Salo Segovia MD, Kevin Hollingsworth Primary Care Provid er Reason for Visit * Reason Comments Fall Pt to ed per ems fro m Willy Rowe. Reports fall this am with bruising to left leg. hx dmentia, othrostatic hypotension and frequent falls. denies head injury. cpta- bs 112 Leg Injury Encounter Details Date Type Department Care Team (Late st Contact Info) Description 06/26/2017 11:23 AM EDT - 06/26/2017 4:29 PM EDT Emergency [facility] [place] [id number] Shalom Centeno MD [address] [place] [address] [place] [phone] Fall at detention, initial encounter (Primary Dx); Contusion of left lower leg, initial encounter Discharge Disposition: Long-Term Facility Social History Tobacco [...] Sign Reading Time Taken Comments Blood Pressure 158/63 06/26/2017 3:30 PM EDT Pulse 71 06/26/2017 3:40 PM EDT Temperature 36.7 ??C (98 ??F) 06/26/2017 11:31 AM EDT Respiratory Rate 16 06/26/2017 3:40 PM EDT Oxygen Saturation 97% 06/26/2017 3:40 PM EDT Inhaled Oxygen Concentration - - Weight - - Height - - Body Mass Index - - documented in this encounter Discharge Instructions * Attachments The following attachments cannot be sent through Care Everywhere. * FALL PREVENTION IN HOSPITALS, ADULT ([place]) * CRYOTHERAPY ([place]) * CONTUSION ([place]) documented in this encounter Medications at Time of Discharge acetaminophen Oral tablet Take 650 mg by mouth every 4 hours as needed for Pain (2 tabs for elevated temp/discomfort ). amantadine HCl (SYMMETREL) 100 mg Oral Capsule Take 100 mg by mouth 2 times daily. Aspirin 81 mg Take 81 mg by mouth daily. atorvastatin (LIPITOR) 10 mg Oral Tablet Take 10 mg by mouth daily. carvedilol (COREG) 25 mg Oral Tablet Take 25 mg by mouth 2 times daily. doxazosin (CARDURA) 2 mg Oral Tablet Take 2 mg by mouth daily. FLUoxetine (PROZAC) 40 mg capsule Take 40 mg by mouth 2 times daily. fUROsemide (LASIX) 40 mg Oral Tablet Take 40 mg by mouth every 12 hours. pantoprazole (PROTONIX) 40 mg Oral Tablet, Delayed Release (E.C.) Take 40 mg by mouth daily. potassium chloride (MICRO-K) 10 mEq Oral Capsule, Sustained Release Take 10 mEq by mouth 2 times daily. Saccharomyces boulardii (FLORASTOR) 250 mg Oral Capsule Take 250 mg by mouth 2 times daily. amLODIPine (NORVASC) 2.5 mg Oral Tablet Take 2.5 mg by mouth daily. 8 cariprazine (VRAYLAR) 1.5 mg Oral Capsule Take 1.5 mg by mouth daily. 8 Donepezil (ARICEPT) 23 mg Oral Tablet Take by mouth nightly. 8 ergocalciferol (VITAMIN D) 50,000 unit Oral Capsule Take by mouth once a week. 8 guaiFENesin-dext romethorphan (ROBITUSSIN DM) 10-100 mg/5 mL syrup Take 10 mL by mouth every 4 hours as needed for Cough. 8 haloperidol (HALDOL) 5 mg tablet Take 5 mg by mouth every 4 hours as needed for Agitation (every 4 hours as needed for agitation). 8 loperamide (IMODIUM) 2 mg Oral Capsule Take by mouth 2 times daily. 8 ondansetron (ZOFRAN-ODT) 4 mg Oral Tablet, Rapid Dissolve Take 4 mg by mouth every 6 hours as needed for Nausea. 8 risperiDONE (RISPERDAL) 4 mg tablet Take 4 mg by mouth 2 times daily. 8 senna (SENOKOT) 8.6 mg Oral Tablet Take 8.6 mg by mouth daily. 8 simvastatin (ZOCOR) 10 mg Take 10 mg by mouth nightly. 8 spironolactone (ALDACTONE) 25 mg Oral Tablet Take 0.5 Tabs by mouth daily. 15 Tab 3 04/23/2015 8 terazosin (HYTRIN) 2 mg capsule Take 2 mg by mouth nightly. 8 valsartan (DIOVAN) 320 mg tablet Take 320 mg by mouth daily. 8 documented as of this encounter Discharge Disposition Disposition Code Departure Means Destination Long-Term Facility Reg romainetrish [place] documented in this encounter ED Notes * Nurys May RN - 06/26/2017 4:28 PM EDT Pt soiled with urine. Pt changed and placed in depends. [facility] to get pt * Nurys May RN - 06/26/2017 4:09 PM EDT Report given to Willy Rowe RN * Nurys May RN - 06/26/2017 11:49 AM EDT Pt taken to US per stretcher with tech. * Shalom Centeno MD - 06/26/2017 11:23 AM EDT Chief Complaint Patient presents with ??? Fall Pt to ed per ems from [facility]. Reports fall this am with bruising to left leg. hx dmentia, othrostatic hypotension and frequent falls. denies head injury. cpta- bs 112 ??? Leg Injury History provided by: Medical records and patient Renan Goncalves is a 72 year old male with a history of schizophrenia, orthostatic hypotension, frequent falls and dementia who presents to the ED by EMS s/p Fall. Patient arrives from [facility]. The patient fell to his knees this morning and injured his left leg.He denies hitting his head or LOC. Patient has had left leg pain and ecchymosis since. He denies abdominal pain, loss of appetite or back pain. The patient has been lethargic, but that is his baseline according to the detention. Patient History No Known Allergies Home Medications: Prior to Admission medications Medication Sig Start Date End Date Taking? Authorizing Provider acetaminophen Oral tablet Take 650 mg by mouth every 4 hours as needed for Pain (2 tabs for elevated temp/discomfort). Provider, Historical amantadine HCl (SYMMETREL) 100 mg Oral Capsule Take 100 mg by mouth 2 times daily. Provider, Historical amLODIPine (NORVASC) 2.5 mg Oral Tablet Take 2.5 mg by mouth daily. Provider, Historical Aspirin 81 mg Take 81 mg by mouth daily. Provider, Historical atorvastatin (LIPITOR) 10 mg Oral Tablet Take 10 mg by mouth daily. Provider, Historical cariprazine (VRAYLAR) 1.5 mg Oral Capsule Take 1.5 mg by mouth daily. Provider, Historical carvedilol (COREG) 25 mg Oral Tablet Take 25 mg by mouth 2 times daily. Provider, Historical Donepezil (ARICEPT) 23 mg Oral Tablet Take by mouth nightly. Provider, Historical doxazosin (CARDURA) 2 mg Oral Tablet Take 2 mg by mouth daily. Provider, Historical ergocalciferol (VITAMIN D) 50,000 unit Oral Capsule Take by mouth once a week. Provider, Historical FLUoxetine (PROZAC) 40 mg capsule Take 40 mg by mouth 2 times daily. Provider, Historical fUROsemide (LASIX) 40 mg Oral Tablet Take 40 mg by mouth every 12 hours. Provider, Historical guaiFENesin-dextromethorphan (ROBITUSSIN DM) 10-100 mg/5 mL syrup Take 10 mL by mouth every 4 hoursas needed for Cough. Provider, Historical haloperidol (HALDOL) 5 mg tablet Take 5 mg by mouth every 4 hours as needed for Agitation (every 4 hours as needed for agitation). Provider, Historical loperamide (IMODIUM) 2 mg Oral Capsule Take by mouth 2 times daily. Provider, Historical ondansetron (ZOFRAN-ODT) 4 mg Oral Tablet, Rapid Dissolve Take 4 mg by mouth every 6 hours as needed for Nausea. Provider, Historical pantoprazole (PROTONIX) 40 mg Oral Tablet, Delayed Release (E.C.) Take 40 mg by mouth daily. Provider, Historical potassium chloride (MICRO-K) 10 mEq Oral Capsule, Sustained Release Take 10 mEq by mouth 2 times daily. Provider, Historical risperiDONE (RISPERDAL) 4 mg tablet Take 4 mg by mouth 2 times daily. Provider, Historical Saccharomyces boulardii (FLORASTOR) 250 mg Oral Capsule Take 250 mg by mouth 2 times daily. Provider, Historical senna (SENOKOT) 8.6 mg Oral Tablet Take 8.6 mg by mouth daily. Provider, Historical simvastatin (ZOCOR) 10 mg Take 10 mg by mouth nightly. Provider, Historical spironolactone (ALDACTONE) 25 mg Oral Tablet Take 0.5 Tabs by mouth daily. Patient not taking: Reported on 06/01/2017 04/23/15 Jazz Tate APRN terazosin (HYTRIN) 2 mg capsule Take 2 mg by mouth nightly. Provider, Historical valsartan (DIOVAN) 320 mg tablet Take 320 mg by mouth daily. Provider, Historical Past Medical History: Past Medical History: Diagnosis Date ??? KARINA (acute kidney injury) (HCC) 05/31/2016 ??? CHF (congestive heart failure) (HCC) ??? Depression ??? High cholesterol ??? Hypertension ECHO 02/2015- EF 60-65% ??? Obesity ??? Paranoid schizophrenia (HCC) ??? Pneumonia Social History: reports that he has never smoked. He has never used smokeless tobacco. He reports that he does not drink alcohol or use drugs. Family History: Family History Problem Relation Age of Onset ??? Cancer Mother ??? Heart Disease Father Surgical History: Past Surgical History: Procedure Laterality Date ??? HAND SURGERY Review of Systems Review of Systems Constitutional: Negative for chills and fever. HENT: Negative. Eyes: Negative. Respiratory: Negative for cough and shortness of breath. Cardiovascular: Negative for chest pain, palpitations and leg swelling. Gastrointestinal: Negative for abdominal pain, diarrhea, nausea and vomiting. Genitourinary: Negative for dysuria and frequency. Musculoskeletal: Negative. Leg pain. Skin: Negative for rash. Neurological: Negative. Psychiatric/Behavioral: Negative. All other systems reviewed and are negative. Physical Exam Blood pressure 131/71, pulse 69, temperature 98 ??F (36.7 ??C), temperature source Oral, resp. rate16, SpO2 96 %. Physical Exam Constitutional: He is oriented to person, place, and time. He appears well- developed and well-nourished. No distress. Slightly lethargic. HENT: Head: Normocephalic and atraumatic. Eyes: Conjunctivae are normal. Neck: Neck supple. Cardiovascular: Normal rate, regular rhythm and normal heart sounds. Pulmonary/Chest: Effort normal and breath sounds normal. No respiratory distress. Abdominal: He exhibits no distension. Musculoskeletal: He exhibits no edema. Lower extremity ecchymosis noted anteriorly. Neurological: He is alert and oriented to person, place, and time. Skin: Skin is warm. No erythema. Psychiatric: He has a normal mood and affect. Nursing note and vitals reviewed. Procedures None Radiology/EKG/Labs: EKG reveals sinus rhythm rate of 70 normal axis, normal intervals, normal QTC, no acute ischemia ectopy or infarct pattern is noted. Comparison EKG is dated May 31, 2016. Duplex scan of both legs are negative for DVT Labs Reviewed CBC WITH DIFF - Abnormal; Notable for the following: Result Value RBC 4.20 (*) Hgb 12.9 (*) RDW 15.5 (*) All other components within normal limits COMPREHENSIVE METABOLIC PANEL - Abnormal; Notable for the following: Potassium 3.3 (*) Total CO2 32 (*) Glucose Lvl 114 (*) Creatinine 1.32 (*) ALT 44 (*) All other components within normal limits URINALYSIS - Abnormal; Notable for the following: UA Hyal Cast 16 (*) All other components within normal limits LACTIC ACID - Normal TROPONIN-T - Normal Narrative: Values > or = 0.01 ng/mL have been shown to have prognostic value. PROCALCITONIN - Normal Narrative: Procalcitonin <0.50 ng/mL: Procalcitonin levels below 0.50 ng/mL on the first day of ICU admission represent a low risk for progression to severe sepsis and/or septic shock Procalcitonin >=0.50 ng/mL and <=2.00 ng/mL: If the procalcitonin measurement is performed shortly after the systemic infection process has started (usually less than 6 hours), this value may still be low. As various non-infectious conditions are known to induce procalcitonin as well, procalcitonin levels between 0.50 ng/mL and 2.00 ng/mL should be reviewed carefully to take into account the specific clinical background and condition(s) of the patient. Procalcitonin >2.00 ng/mL: Procalcitonin levels above 2.00 ng/mL on the first day of ICU admission represent a high risk for progression to severe sepsis and/or septic shock. BLOOD CULTURE (NO STAIN) BLOOD CULTURE (NO STAIN) TROPONIN-T ED Course: Appropriate laboratory and radiology studies reviewed 2:32 PM Patient is being discharged back to [facility]. ED Clinical Impression: 1. Fall at detention, initial encounter 2. Contusion of left lower leg, initial encounter Critical Care time Condition at Discharge/Transfer from Department: Stable This chart was completed using voice recognition technology and may contain unintended errors Kalina Mayberry Scribe, am scribing for and in the presence of Shalom Wooten MD . Kalina Bhatt Scribe 06/26/17 9776 Shalom Mayberry MD, personally performed the services described in this documentation, as scribed byKalina , in my presence and it is accurate and complete. Shalom Centeno MD 06/26/17 1411 Shalom Centeno MD 06/26/17 1432 documented in this encounter Plan of Treatment Not on file documented as of this encounter Procedures Procedure Name Priority Date/Time Associated Diagnosis Comments EXTRA COLBERT URINE CX STAT 06/26/2017 1 :12 PM EDT URINALYSIS STAT 06/26/2017 1:12 PM EDT VA US LOWER EXTREMITY VENOUS BILATERAL STAT 06/26/2017 12:20 PM EDT XR CHEST AP PORTABLE CHITO 06/26/2017 11:48 AM EDT TROPONIN-T STAT 06/26/2017 11:43 AM EDT PROCALCITONIN STAT 06/26/2017 11:43 AM EDT BLOOD CULTURE (NO STAIN) STAT 06/26/2017 11:43 AM EDT BLOOD CULTURE (NO STAIN) STAT 06/26/2017 11:43 AM EDT CBC WITH DIFF STAT 06/26/2017 11:43 AM EDT LACTIC ACID STAT 06/26/2017 11:43 AM EDT COMPREHENSIVE METABOLIC PANEL STAT 06/26/2017 11:43 AM EDT EK EKG 12 LEAD STAT 06/26/2017 11:31 AM EDT documented in this encounter Results * EXTRA COLBERT URINE CX (06/26/2017 1:12 PM EDT) Urine URINE SPECIMEN OBTAINED VIA STRAIGHT CATHETER / Unknown 06/26/2017 1:12 PM EDT 06/26/2017 11:12 PM EDT Shalom Centeno MD MICROBIOLOGY - GENERAL [facility] Final Result [facility] [address] [place], [place] [id number] * (ABNORMAL) URINALYSIS (06/26/2017 1:12 PM EDT) UA Color Yellow 06/26/2017 1:[address] [facility] UA Appear Clear Clear 06/26/2017 1:[address] [facility] UA Glucose Negative Negative mg/dL 06/26/2017 1:[address] [facility] UA Ketones Negative Negative mg/dL 06/26/2017 1:[address] [facility] UA Blood Negative Negative 06/26/2017 1:[address] [facility] UA pH 7.0 5.0 - 8.0 pH 06/26/2017 1:[address] [facility] UA Protein Negative Negative mg/dL 06/26/2017 1:[address] [facility] UA Urobilinogen Normal <=1 E.U./dL 06/27/19 1:[address] [facility] UA Nitrite Negative Negative 06/26/2017 1:[address] [facility] UA Leuk Est Negative Negative 06/26/2017 1:[address] [facility] UA Spec Grav 1.005 1.001 - 1.035 no units 06/26/2017 1:32 PM EDT [facility] Comment: Reference range valid for random specimens only. UA WBC <1 0 - 4 /HPF 06/26/2017 1:[address] [facility] UA Mucus Trace /LPF 06/26/2017 1:32 PM EDT [facility] UA Hyal Cast 16(H) 0 - 2 /LPF 06/26/2017 1:[address] [facility] Urine URINE SPECIMEN OBTAINED VIA STRAIGHT CATHETER / Unknown 06/26/2017 1:12 PM EDT 06/26/2017 1:20 PM EDT us Shalom Centeno MD URINE ORDERABLES Final Resu lt [facility] [address] [place] [address] * VA US LOWER EXTREMITY VENOUS BILATERAL (06/26/2017 12:20 PM EDT) Anatomical Region Laterality Modality Vascular, Leg Vascular Imaging 06/26/2017 11:4 6 AM EDT Impressions 06/26/2017 3:14 PM EDT ??CONCLUSIONS ??No evidence of deep vein thrombosis identified in the bilateral lower extremities. ?No evidence of superficial vein thrombosis identified in the bilateral lower extremities. ?Lona Chavarria MD Narrative Procedure Note Lona Chavarria MD - 06/26/2017 IMPRESSION CONCLUSIONS No evidence of deep vein thrombosis identified in the bilateral lowerextremities. No evidence of superficial vein thrombosis identified in the bilaterallower extremities. Lona Chavarria MD Shalom Centeno MD [facility] VASCULAR ORDERABLES Fin al Result * XR CHEST AP PORTABLE (06/26/2017 11:48 AM EDT) Anatomical Region Laterality Modality Chest Radiographic Kelsey ging 06/26/2017 11:4 8 AM EDT Impressions 06/26/2017 12:17 PM EDT No acute cardiopulmonary process. Narrative 06/26/2017 12:17 PM EDT XR CHEST AP PORTABLE, ??06/26/2017 11:48 AM CLINICAL HISTORY: ??Fall with chest wall pain. COMPARISON: ??01/12/2017 PROCEDURE COMMENTS: AP portable technique. Patient's chin obscures the right apex. FINDINGS: No acute failure, pneumonia, or effusion. No pneumothorax. Procedure Note Kyle Kathleen MD - 06/26/2017 XR CHEST AP PORTABLE, 06/26/2017 11:48 AM CLINICAL HISTORY: Fall with chest wall pain. COMPARISON: 01/12/2017 PROCEDURE COMMENTS: AP portable technique. Patient's chin obscures theright apex. FINDINGS: No acute failure, pneumonia, or effusion. No pneumothorax. IMPRESSION: No acute cardiopulmonary process. Shalom Centeno MD [employer] [employer] DIAGNOSTIC IMAGING ORDE RABLES Final Result * PROCALCITONIN (06/26/2017 11:43 AM EDT) Procalcitonin 0.05 <=0.49 ng/mL 06/26/2017 1:04 PM EDT [facility] Blood VENOUS BLOOD / Unknown Venipuncture / Unknown 06/26/2017 11:43 AM EDT 06/26/2017 11:57 AM EDT Narrative [facility] - 06/26/2017 1:04 PM EDT Procalcitonin <0.50 ng/mL: Procalcitonin levels below 0.50 ng/mL on the first day of ICU admission represent a low risk for progression to severe sepsis and/or septic shock Procalcitonin >=0.50 ng/mL and <=2.00 ng/mL: If the procalcitonin measurement is performed shortly after the systemic infection process has started (usually less than 6 hours), this value may still be low. ??As various non-infectious conditions are known to induce procalcitonin as well, procalcitonin levels between 0.50 ng/mL and 2.00 ng/mL should be reviewed carefully to take into account the specific clinical background and condition(s) of the patient. Procalcitonin >2.00 ng/mL: Procalcitonin levels above 2.00 ng/mL on the first day of ICU admission represent a high risk for progression to severe sepsis and/or septic shock. us Shalom Centeno MD CHEMISTRY ORDERABLES Final Result Performing Organization Address City/[facility]/ZIP Co de Phone Number [place] [phone] * BLOOD CULTURE (NO STAIN) (06/26/2017 11:43 AM EDT) Culture Result No Growth at 120 hours. BLOOD CULTURE (NO STAIN) 07/01/2017 1:00 PM EDT [facility] Blood VENOUS BLOOD / Unknown Venipuncture / Unknown 06/26/2017 11:43 AM EDT 06/26/2017 11:51 AM EDT Shalom Centeno MD MICROBIOLOGY - GENERAL [facility] Final Result Performing Organization Address City/[facility]/[place] [address] * BLOOD CULTURE (NO STAIN) (06/26/2017 11:43 AM EDT) Culture Result No Growth at 120 hours. BLOOD CULTURE (NO STAIN) 07/01/2017 1:[address] [facility] Blood VENOUS BLOOD / Unknown Venipuncture / Unknown 06/26/2017 11:43 AM EDT 06/26/2017 11:52 AM EDT us Shalom Centeno MD MICROBIOLOGY - GENERAL [facility] Final Result Performing Organization Address City/[facility]/[place] [address] * TROPONIN-T (06/26/2017 11:43 AM EDT) Troponin-T <0.01 <0.01 ng/mL 06/26/2017 12:[address] [facility] Blood VENOUS BLOOD / Unknown Venipuncture / Unknown 06/26/2017 11:43 AM EDT 06/26/2017 11:47 AM EDT Narrative [facility] - 06/26/2017 12:09 PM EDT Values > or = 0.01 ng/mL have been shown to have prognostic value. us Shalom Centeno MD CHEMISTRY ORDERABLES Final Result Performing Organization Address City/[facility]/[place] [address] * LACTIC ACID (06/26/2017 11:43 AM EDT) Lactic Acid 1.3 0.5 - 2.2 mmol/L 06/26/2017 12:05 PM EDT [facility] Blood VENOUS BLOOD / Unknown Venipuncture / Unknown 06/26/2017 11:43 AM EDT 06/26/2017 11:47 AM EDT us Shalom Centeno MD CHEMISTRY ORDERABLES Final Result [facility] [address] [place] [address] * (ABNORMAL) COMPREHENSIVE METABOLIC PANEL (06/26/2017 11:43 AM EDT) Sodium 143 136 - 145 mmol/L 06/26/2017 12:07 PM EDT [facility] Potassium 3.3(L) 3.5 - 5.0 mmol/L 06/26/2017 12:07 PM EDT [facility] Chloride 99 98 - 107 mmol/L 06/26/2017 12:07 PM EDT [facility] Total CO2 32(H) 22 - 29 mmol/L 06/26/2017 12:07 PM EDT [facility] Anion Gap 12 7 - 16 mmol/L 06/26/2017 12:07 PM EDT [facility] Calcium 9.2 8.8 - 10.2 mg/dL 06/26/2017 12:07 PM EDT [facility] Glucose Lvl 114(H) 82 - 100 mg/dL 06/26/2017 12:07 PM EDT [facility] BUN 12 8 - 23 mg/dL 06/26/2017 12:07 PM EDT [facility] Creatinine 1.32(H) 0.67 - 1.30 mg/dL 06/26/2017 12:07 PM EDT [facility] Albumin 3.7 3.2 - 4.6 gm/dL 06/26/2017 12:07 PM EDT [facility] Total Protein 7.5 6.4 - 8.3 gm/dL 06/26/2017 12:07 PM EDT [facility] Bili Total 0.9 0.1 - 1.4 mg/dL 06/26/2017 12:07 PM EDT [facility] ALT 44(H) <=41 IU/L 06/26/2017 12:07 PM EDT [facility] AST 38 <=40 IU/L 06/26/2017 12:07 PM EDT [facility] Alk Phos 122 40 - 129 IU/L 06/26/2017 12:07 PM EDT [facility] GFR Afr Am 62 mL/min/1.7 3 m2 06/26/2017 12:07 PM EDT [facility] GFR Non Afr Am 54 mL/min/1.7 3 m2 06/26/2017 12:07 PM EDT [facility] Comment: GFR Afr Am and GFR Non Afr Am calculated using CKD-EPI equation. ?? GFR Category ?GFR(mL/min/1.73 m??) ? Kidney Function G1 ?>=90 ?Normal or high G2 ?60-89 ? Mildly decreased G3a ? 45-59 ? Mildly to moderately decreased G3b ? 30-44 ? Moderately to severely decreased G4 ?15-29 ? Severely decreased G5 ?<15 ? Kidney Failure Blood VENOUS BLOOD / Unknown Venipuncture / Unknown 06/26/2017 11:43 AM EDT 06/26/2017 11:47 AM EDT us Shalom Centeno MD CHEMISTRY ORDERABLES Final Result [facility] [address] [place] [address] * (ABNORMAL) CBC WITH DIFF (06/26/2017 11:43 AM EDT) [facility] Signature WBC 5.4 4.0 - 11.0 x10(3)/mcL 06/26/2017 11:49 AM EDT [facility] RBC 4.20(L) 4.30 - 5.81 x10(6)/mcL 06/26/2017 11:49 AM EDT [facility] Hgb 12.9(L) 13.5 - 17.1 gm/dL 06/26/2017 11:49 AM EDT [facility] Hct 38.9 38.9 - 51.6 % 06/26/2017 11:49 AM EDT [facility] MCV 92.6 82.5 - 99.8 fL 06/26/2017 11:49 AM EDT [facility] MCH 30.8 27.0 - 34.3 pg 06/26/2017 11:49 AM EDT [facility] MCHC 33.2 32.1 - 35.3 gm/dL 06/26/2017 11:49 AM EDT [facility] RDW 15.5(H) 11.5 - 15.0 % 06/26/2017 11:49 AM EDT [facility] Platelet 222 144 - 423 x10(3)/mcL 06/26/2017 11:49 AM EDT [facility] MPV 7.7 6.8 - 10.8 fL 06/26/2017 11:49 AM EDT [facility] Neut Percent 74.5 % 06/26/2017 11:49 AM EDT [facility] Lymph Percent 13.1 % 06/26/2017 11:49 AM EDT [facility] [place] Percent 9.5 % 06/26/2017 11:49 AM EDT [facility] Eos Percent 2.5 % 06/26/2017 11:49 AM EDT [facility] Baso Percent 0.4 % 06/26/2017 11:49 AM EDT [facility] Neut # 4.0 1.8 - 7.7 x10(3)/mcL 06/26/2017 11:49 AM EDT [facility] Lymph # 0.7 0.6 - 4.8 x10(3)/[facility] 06/26/2017 11:49 AM EDT [facility] [place] # 0.5 0.0 - 1.3 x10(3)/[facility] 06/26/2017 11:49 AM EDT [facility] Eos# 0.1 0.0 - 0.5 x10(3)/[facility] 06/26/2017 11:49 AM EDT [facility] Baso # 0.0 0.0 - 0.2 x10(3)/[facility] 06/26/2017 11:[address] [facility] Blood VENOUS BLOOD / Unknown Venipuncture / Unknown 06/26/2017 11:43 AM EDT 06/26/2017 11:48 AM EDT us Shalom Centeno MD HEMATOLOGY [place] [address] * EK EKG 12 LEAD (06/26/2017 11:31 AM EDT) Anatomical Region Laterality Modality Electrocardiogra phy 06/26/2017 11:4 1 AM EDT Impressions 06/26/2017 7:08 PM EDT ? Stationary ECG Study ?[facility] ? Interpretive Statements ? SINUS RHYTHM WITH FIRST DEGREE AV BLOCK Electronically Signed On 06-26-2017 19:08:38 EDT by Taiwo Pat MD Narrative Procedure Note Taiwo Pat MD - 06/26/2017 IMPRESSION [address] ECG Study [facility] Interpretive Statements SINUS RHYTHM WITH FIRST DEGREE AV BLOCK Electronically Signed On 06-26-2017 19:08:38 EDT by Taiwo Pat MD us Shalom Centeno MD IMG ECG ORDERABLES Final Re sult documented in this encounter Visit Diagnoses Diagnosis Fall at detention, initial encounter- Primary Contusion of left lower leg, initial encounter documented in this encounter Care Teams Workday Financials Consultant Relationship Specialty Start Date End Date Kevin Leong Sr., MD [address] [place] [phone] PCP - General Production Counter 10/29/13 documented as of this encounter
--- OUTSIDE RECORDS SUMMARY | 2024-02-27 10:43 | XMS_ITS | Encounter Summary ---
Author Organization Healthcare Address [address] [place] [address] Care Team Providers Care Weighter Name Role Phone Unavailable Primary Care Provider Unavailabl e Encounter Details Date Type Department Care Team ([facility] Contact Info) Description 09/05/2020 Abstract [facility] [address] [phone] Yolanda Joshua, RN [facility] Social History Tobacco Use Types Packs/Day Years Used Date Smoking Tobacco: Former Sex and Gender Information Value Date Recorded Sex Assigned at Not on file Legal Sex Male 6:57 PM EDT Gender Identity Not on file Sexual Orientation Not on file documented as of this encounter Last Filed Vital Signs Vital Sign Reading Time Taken Comments Blood Pressure 153/63 01/30/2018 11:08 AM EDT Pulse - - Temperature - - Respiratory Rate - - Oxygen Saturation - - Inhaled Oxygen Concentration - - Weight - - Height - - Body Mass Index - - documented in this encounter Plan of Treatment Upcoming Encounters Date Type Department Care Team ([facility] Contact Info) Description 02/28/2024 10:40 AM EST Hospital Encounter [facility] [address] [phone] John Vargas MD [address] [phone] 02/28/2024 10:40 AM EST Anesthesia Event [facility] [address] [place] [phone] Fransico Mcgarry MD [address] [place] [address] 02/28/2024 10:40 AM EST - 02/28/2024 1:05 PM EST Surgery [facility] [address] [place] [address] John Vargas MD [address] [address] URETEROSCOPY, WITH LASER LITHOTRIPSY [[id number] (CPT??)] 05/16/2024 3:45 PM EST Office Visit Medical Office Building Urology [address] [facility], [address] [place] [id number] Mark Moore MD [address] [address] Scheduled Procedures Name Priority Associated Diagnoses Date/Ti me URETEROSCOPY, WITH LASER LITHOTRIPSY Ureteral stone 02/28/2024 10:40 AM EST documented as of this encounter Visit Diagnoses Not on filedocumented in this encounter
--- OUTSIDE RECORDS SUMMARY | 2024-02-27 10:43 | XMS_ITS | Encounter Summary ---
Author Organization Healthcare Address [address] [place] [address] Care Team Providers Care Molding Machine Operator Helper Name Role Phone Jeb Gonzalez MD Primary Care Provider Encounter Details Date Type Department Care Team (Latest Contact Info) Description 10/06/2020 Travel Social History Tobacco Use Types Packs/Day Years Used Date Smoking Tobacco: Former PHQ-2 Answer Date Recorded Patient Health Questionnaire-2 Score 2 10/06/2020 Sex and Gender Information Value Date Recorded Sex Assigned at Not on file Legal Sex Male 6:57 PM EDT Gender Identity Not on file Sexual Orientation Not on file COVID-19 Exposure Response Date Recorded In the last month, have you been in contact with someone who was confirmed or suspected to have Coronavirus / COVID-19? No / Unsure 10/06/2020 11:46 AM EDT documented as of this encounter Plan of Treatment Upcoming Encounters Date Type Department Care Team (Late st Contact Info) Description 02/28/2024 10:40 AM EST Hospital Encounter [facility] [address] [place] [address] John Vargas MD [address] [address] 02/28/2024 10:40 AM EST Anesthesia Event [facility] [address] [place] [address] Fransico Mcgarry MD [address] [place] [address] 02/28/2024 10:40 AM EST - 02/28/2024 1:05 PM EST Surgery [facility] [address] [place] [phone] John Vargas MD [address] [place] [address] URETEROSCOPY, WITH LASER LITHOTRIPSY [[id number] (CPT??)] 05/16/2024 3:45 PM EST Office Visit Medical Office Building Urology [address] [facility], [address] [place] [address] Mark Moore MD [address] [place] [address] Scheduled Procedures Name Priority Associated Diagnoses Date/Ti me URETEROSCOPY, WITH LASER LITHOTRIPSY Ureteral stone 02/28/2024 10:40 AM EST documented as of this encounter Visit Diagnoses Not on filedocumented in this encounter Additional Health Concerns Assessment Noted Time A fall risk assessment has been complete d for the patient 10/06/2020 12:22 PM EDT documented as of this encounter Care Teams Molding Machine Operator Helper Relationship Specialty Start Date End Date Jeb Gonzalez MD [address] [place] [address] PCP - General 10/06/20 documented as of this encounter
--- OUTSIDE RECORDS SUMMARY | 2024-02-27 10:43 | XMS_ITS | Encounter Summary ---
Author Organization [place] [address] Care Team Providers Care Lamp Decorator Name Role Phone Salo Segovia MD, [facility] Reason for Visit * Reason Comments Fall Pt here via ems from [facility] with c/o per nursing staff swelling in legs and feet, chnage in mental status, right hip is hurting him, multiple falls the last couple of days. Encounter Details Date Type Department Care Team (Late st Contact Info) Description 07/31/2017 3:52 PM EDT - 07/31/2017 10:06 PM EDT Emergency [place] [facility] [place] [id number] Nader Holder MD [address] [place] [address] [place] [id number] Fall, initial encounter (Primary Dx); Peripheral edema Discharge Disposition: Home or Self Care Social [...] Mass Index 32.55 07/31/2017 3:45 PM EDT documented in this encounter Discharge Instructions * Discharge Instructions* Nader Holder MD - 07/31/2017 6:45 PM EDT The patient follow up with his family doctor for repeat evaluation. Change or worsening symptoms orany other concerns return documented in this encounter Medications at Time of Discharge acetaminophen Oral tablet Take 650 mg by mouth every 4 hours as needed for Pain (2 tabs for elevated temp/discomfort ). amantadine HCl (SYMMETREL) 100 mg Oral Capsule Take 100 mg by mouth 2 times daily. amLODIPine (NORVASC) 10 mg Oral Tablet Take 1 Tab by mouth daily. 30 Tab 07/19/2017 Aspirin 81 mg Take 81 mg by mouth daily. atorvastatin (LIPITOR) 10 mg Oral Tablet Take 10 mg by mouth daily. Balsam [place] Oil (VENELEX) 87-788 mg/gram Top Ointment Apply 1 Dose topically 2 times daily. 1 Tube 07/19/2017 Balsam [place] Oil (VENELEX) 87-788 mg/gram Top Ointment Apply 1 Tube topically as needed for Other (topically). 1 Tube 07/19/2017 carvedilol (COREG) 25 mg Oral Tablet Take 25 mg by mouth 2 times daily. doxazosin (CARDURA) 2 mg Oral Tablet Take 2 mg by mouth daily. FLUoxetine (PROZAC) 40 mg capsule Take 40 mg by mouth 2 times daily. fUROsemide (LASIX) 40 mg Oral Tablet Take 40 mg by mouth every 12 hours. lamoTRIgine (LAMICTAL) 25 mg Oral Tablet Take 1 Tab by mouth 2 times daily. 60 Tab 07/19/2017 memantine (NAMENDA) 5 mg Oral Tablet Take 1 Tab by mouth 2 times daily. 60 Tab 07/19/2017 pantoprazole (PROTONIX) 40 mg Oral Tablet, Delayed Release (E.C.) Take 40 mg by mouth daily. potassium chloride (MICRO-K) 10 mEq Oral Capsule, Sustained Release Take 10 mEq by mouth 2 times daily. risperiDONE (RISPERDAL) 3 mg Oral Tablet Take 1 Tab by mouth 2 times daily. 60 Tab 07/19/2017 Saccharomyces boulardii (FLORASTOR) 250 mg Oral Capsule Take 250 mg by mouth 2 times daily. traZODone (DESYREL) 50 mg Oral Tablet Take 1 Tab by mouth nightly as needed for Sleep. 30 Tab 07/19/2017 documented as of this encounter Discharge Disposition Disposition Code Departure Means Destination Home or Self Long-Term documented in this encounter ED Notes * Marianne Higuera RN - 07/31/2017 7:51 PM EDT Pt to lobby via w/ cab voucher, triage nurse made aware of pt. * Juwan Gutierrez RN - 07/31/2017 7:19 PM EDT Report to Marianne Collins RN. * Juwan Gutierrez RN - 07/31/2017 7:18 PM EDT Report called to [facility]. Plan is for patient to be placed in a cab and will be met by nursing staff at [facility] for safe transfer of care. * Juwan Gutierrez RN - 07/31/2017 6:29 PM EDT Pt ambulated with a walker with x1 assist. Pt was able to maintain balance with walker. * Delmi Briseno RN - 07/31/2017 3:52 PM EDT Bed: 32 Expected date: Expected time: Means of arrival: Comments: * Nader Holder MD - 07/31/2017 3:40 PM EDT CHIEF COMPLAINT Chief Complaint Patient presents with ??? Fall Pt here via ems from [facility] with c/o per nursing staff swelling in legs and feet, chnage in mental status, right hip is hurting him, multiple falls the last couple of days. HPI Renan Goncalves is a 72 y.o. male who presents by EMS from [facility] s/p multiple falls. Patient has a history of depression, paranoid schizophrenia, CHF, HTN, and mild cognitive impairment. Nursing staff report patient has experienced increased swelling in legs and feet, change in mental status,and over the past few days has had multiple falls. On exam patient complains of right shoulder painand left hip pain, though reports hip pain is chronic. He denies other new injury or illness. History is limited due to patients age and mentation REVIEW OF SYSTEMS See HPI for further details. Review of systems otherwise negative. PAST MEDICAL HISTORY Past Medical History: Diagnosis Date ??? KARINA (acute kidney injury) (HCC) 05/31/2016 ??? CHF (congestive heart failure) (HCC) ??? Depression ??? High cholesterol ??? Hypertension ECHO 02/2015- EF 60-65% ??? 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 Obesity ??? Paranoid schizophrenia (HCC) ??? Pneumonia ??? Urinary incontinence FAMILY HISTORY Family History Problem Relation Age of Onset ??? Cancer Mother ??? Heart Disease Father SOCIAL HISTORY Social History Social History ??? Marital status: Single Spouse name: N/A ??? Number of children: N/A ??? Years of education: N/A Social History Main Topics ??? Smoking status: Never Smoker ??? Smokeless tobacco: Never Used ??? Alcohol use No ??? Drug use: No ??? Sexual activity: Not Asked Other Topics Concern ??? None Social History Narrative ??? None SURGICAL HISTORY Past Surgical History: Procedure Laterality Date ??? HAND SURGERY ??? TONSILLECTOMY CURRENT MEDICATIONS No current facility-administered medications for this encounter. Current Outpatient Prescriptions: ??? acetaminophen Oral tablet, Take 650 mg by mouth every 4 hours as needed for Pain (2 tabs for elevated temp/discomfort)., Disp: , Rfl: ??? amantadine HCl (SYMMETREL) 100 mg Oral Capsule, Take 100 mg by mouth 2 times daily., Disp: , Rfl: ??? amLODIPine (NORVASC) 10 mg Oral Tablet, Take 1 Tab by mouth daily., Disp: 30 Tab, Rfl: 0 ??? Aspirin 81 mg, Take 81 mg by mouth daily., Disp: , Rfl: ??? atorvastatin (LIPITOR) 10 mg Oral Tablet, Take 10 mg by mouth daily., Disp: , Rfl: ??? Balsam [place] Oil (VENELEX) 87-788 mg/gram Top Ointment, Apply 1 Dose topically 2 times daily., Disp: 1 Tube, Rfl: 0 ??? Balsam [place] Oil (VENELEX) 87-788 mg/gram Top Ointment, Apply 1 Tube topically as needed for Other (topically)., Disp: 1 Tube, Rfl: 0 ??? carvedilol (COREG) 25 mg Oral Tablet, Take 25 mg by mouth 2 times daily., Disp: , Rfl: ??? doxazosin (CARDURA) 2 mg Oral Tablet, Take 2 mg by mouth daily., Disp: , Rfl: ??? FLUoxetine (PROZAC) 40 mg capsule, Take 40 mg by mouth 2 times daily., Disp: , Rfl: ??? fUROsemide (LASIX) 40 mg Oral Tablet, Take 40 mg by mouth every 12 hours., Disp: , Rfl: ??? lamoTRIgine (LAMICTAL) 25 mg Oral Tablet, Take 1 Tab by mouth 2 times daily., Disp: 60 Tab, Rfl: 0 ??? memantine (NAMENDA) 5 mg Oral Tablet, Take 1 Tab by mouth 2 times daily., Disp: 60 Tab, Rfl: 0 ??? pantoprazole (PROTONIX) 40 mg Oral Tablet, Delayed Release (E.C.), Take 40 mg by mouth daily., Disp: , Rfl: ??? potassium chloride (MICRO-K) 10 mEq Oral Capsule, Sustained Release, Take 10 mEq by mouth 2 times daily., Disp: , Rfl: ??? risperiDONE (RISPERDAL) 3 mg Oral Tablet, Take 1 Tab by mouth 2 times daily., Disp: 60 Tab, Rfl: 0 ??? Saccharomyces boulardii (FLORASTOR) 250 mg Oral Capsule, Take 250 mg by mouth 2 times daily., Disp: , Rfl: ??? traZODone (DESYREL) 50 mg Oral Tablet, Take 1 Tab by mouth nightly as needed for Sleep., Disp: 30 Tab, Rfl: 0 ALLERGIES No Known Allergies PHYSICAL EXAM VITAL SIGNS: BP 145/71 (BP Location: Left arm, Patient Position: Semi Fowlers) Pulse 74 Temp 98.3 ??F (36.8 ??C) (Oral) Resp 16 Ht 6' (1.829 m) Wt 240 lb (108.9 kg) SpO2 96% BMI 32.55 kg/m?? Constitutional: Well developed, Well nourished, No acute distress, Non-toxic appearance. HENT: Normocephalic, Atraumatic, Bilateral external ears normal, Oropharynx moist, No oral exudates, Nose normal. Eyes: PERRLA, EOMI, Conjunctiva normal, No discharge. Neck: Normal range of motion, No tenderness or bruising, Supple, No stridor. Cardiovascular: Normal heart rate, Normal rhythm, No murmurs, No rubs, No gallops. Thorax & Lungs: Normal breath sounds, No respiratory distress, No wheezing, No chest tenderness. Abdomen: Bowel sounds normal, Soft, No tenderness, No masses, No pulsatile masses. Skin: Warm, Dry, No erythema, No rash. Back: No tenderness, No CVA tenderness. Extremities: Intact distal pulses, No cyanosis, No clubbing, bruising to extremities but no bony tenderness, good ROM of hip, 2+ lower extremity edema, no deformity. Neurologic: Alert & oriented x 3, Normal motor function, Normal sensory function, No focal deficits noted. EKG Sinus rhythm with PVCs rate 68. No acute ST changes RADIOLOGY/PROCEDURES Results for orders placed or performed during the hospital encounter of 07/31/17 XR CHEST PA AND LATERAL Narrative PA AND LATERAL CHEST X-RAY, 07/31/2017 4:53 PM CLINICAL HISTORY: -FALL COMPARISON: 06/26/2017. PROCEDURE COMMENTS: Frontal and lateral views of the chest. FINDINGS: Cardiovascular structures within normal limits. No pneumonia or effusion. No pneumothorax. There is flowing hyperostosis along the anterior margins of the thoracic spine, suggesting DISH. Impression IMPRESSION: No acute finding. XR HIP LEFT AP LATERAL W AP PELVIS Narrative XR HIP LEFT AP LATERAL W AP PELVIS, 07/31/2017 5:00 PM CLINICAL HISTORY: -FALL COMPARISON: 01/12/2017. PROCEDURE COMMENTS: AP view of the pelvis with AP and frog-leg views of the hip. FINDINGS: Mild degenerative changes involve both hips, left slightly greater than right. No fracture or dislocation identified. Impression No acute abnormality of the hip or pelvis. CBC WITH DIFF Result Value Ref Range WBC 3.8 (L) 4.0 - 11.0 x10(3)/mcL RBC 3.47 (L) 4.30 - 5.81 x10(6)/mcL Hgb 11.0 (L) 13.5 - 17.1 gm/dL Hct 32.7 (L) 38.9 - 51.6 % MCV 94.4 82.5 - 99.8 fL MCH 31.6 27.0 - 34.3 pg MCHC 33.5 32.1 - 35.3 gm/dL RDW 15.6 (H) 11.5 - 15.0 % Platelet 182 144 - 423 x10(3)/mcL MPV 7.1 6.8 - 10.8 fL BASIC METABOLIC PANEL Result Value Ref Range Sodium 143 136 - 145 mmol/L Potassium 3.8 3.5 - 5.0 mmol/L Chloride 103 98 - 107 mmol/L Total CO2 30 (H) 22 - 29 mmol/L Anion Gap 10 7 - 16 mmol/L Calcium 8.3 (L) 8.8 - 10.2 mg/dL Glucose Lvl 102 (H) 82 - 100 mg/dL BUN 13 8 - 23 mg/dL Creatinine 1.19 0.67 - 1.30 mg/dL GFR Afr Am 71 mL/min/1.73 m2 GFR Non Afr Am 61 mL/min/1.73 m2 URINALYSIS Result Value Ref Range UA Color Yellow UA Appear Clear Clear UA Glucose Negative Negative mg/dL UA Ketones Negative Negative mg/dL UA Blood Negative Negative UA pH 7.0 5.0 - 8.0 pH UA Protein Negative Negative mg/dL UA Urobilinogen 2.0 (A) <=1 E.U./dL UA Nitrite Negative Negative UA Leuk Est Negative Negative UA Spec Grav 1.012 1.001 - 1.035 no units UA WBC <1 0 - 4 /HPF UA Squam Epi Few /LPF UA Amorph Trace /LPF UA Hyal Cast 7 (H) 0 - 2 /LPF TROPONIN-T Result Value Ref Range Troponin-T <0.01 <0.01 ng/mL Narrative Values > or = 0.01 ng/mL have been shown to have prognostic value. DIFFERENTIAL Result Value Ref Range Segs 54 % Lymph Percent 20 % Monos/100 Manual 12 % Eos 6 % Bands 2 <=10 % Myelo 2 % Atyp Lymph 4 <=10 % Neut # 2.1 1.8 - 7.7 x10(3)/mcL Lymph # 0.9 0.6 - 4.8 x10(3)/mcL [place] # 0.5 0.0 - 1.3 x10(3)/mcL Eos # Manual 0.2 0.0 - 0.5 x10(3)/mcL Myelo # 0.1 x10(3)mcL [place] Slight EK EKG 12 LEAD Narrative NOTICE: Preliminary tracing available for review; Final Interpretation by physician to follow. Impression [facility] Interpretive Statements SUPRAVENTRICULAR RHYTHM ATYPICAL ECG Labs Reviewed CBC WITH DIFF - Abnormal; Notable for the following: Result Value WBC 3.8 (*) RBC 3.47 (*) Hgb 11.0 (*) Hct 32.7 (*) RDW 15.6 (*) All other components within normal limits BASIC METABOLIC PANEL - Abnormal; Notable for the following: Total CO2 30 (*) Calcium 8.3 (*) Glucose Lvl 102 (*) All other components within normal limits URINALYSIS - Abnormal; Notable for the following: UA Urobilinogen 2.0 (*) UA Hyal Cast 7 (*) All other components within normal limits TROPONIN-T - Normal Narrative: Values > or = 0.01 ng/mL have been shown to have prognostic value. DIFFERENTIAL TROPONIN-T XR HIP LEFT AP LATERAL W AP PELVIS Final Result No acute abnormality of the hip or pelvis. XR CHEST PA AND LATERAL Final Result IMPRESSION: No acute finding. EK EKG 12 LEAD Preliminary Result Stationary ECG Study [facility] Interpretive Statements SUPRAVENTRICULAR RHYTHM ATYPICAL ECG COURSE & MEDICAL DECISION MAKING Pertinent Labs & Imaging studies reviewed. (See chart for details) Patient was able to ambulate without difficulty. He is alert and oriented ??3, he ambulate with a walker. He uses a walker at home. He is calm and cooperative here. No focal deficits. Labs reassuringevidence of decompensated heart failure. FINAL IMPRESSION 1. Fall, initial encounter 2. Peripheral edema This chart was completed using voice recognition technology and may contain unintended errors Tesha Mayberry Scribe, am scribing for and in the presence of Nader Uribe MD. Tesha Bah Scribe 07/31/17 1630 Nader Holder MD 07/31/17 1844 documented in this encounter Plan of Treatment Not on file documented as of this encounter Procedures Procedure Name Priority Date/Time Associated Diagnosis Comments SCANNED EKG 08/01/2017 9:09 PM EDT EXTRA COLBERT URINE CX STAT 07/31/2017 5 :11 PM EDT URINALYSIS STAT 07/31/2017 5:11 PM EDT XR HIP LEFT AP LATERAL W AP PELVIS CHITO 07/31/2017 5:00 PM EDT XR CHEST PA AND LATERAL CHITO 07/31/2017 4:53 PM EDT TROPONIN-T STAT 07/31/2017 4:43 PM EDT DIFFERENTIAL Routine 07/31/2017 4:43 PM EDT CBC WITH DIFF STAT 07/31/2017 4:43 PM EDT BASIC METABOLIC PANEL STAT 07/31/2017 4:43 PM EDT EK EKG 12 LEAD STAT 07/31/2017 4:20 PM EDT documented in this encounter Results * SCANNED EKG (08/01/2017 9:09 PM EDT) Anatomical Region Laterality Modality Other 08/01/2017 9:09 PM EDT us Unknown Unknown IMG ECG ORDERABLES Final Result * EXTRA COLBERT URINE CX (07/31/2017 5:11 PM EDT) Urine URINE SPECIMEN OBTAINED VIA STRAIGHT CATHETER / Unknown 07/31/2017 5:11 PM EDT 07/31/2017 5:15 PM EDT us Nader Holder MD MICROBIOLOGY - GENERAL ORDER MONTY Final Result Performing Organization Address City/State/[facility] [place] [address] * (ABNORMAL) URINALYSIS (07/31/2017 5:11 PM EDT) UA Color Yellow 07/31/2017 5:36 PM EDT [facility] UA Appear Clear Clear 07/31/2017 5:36 PM EDT [facility] UA Glucose Negative Negative mg/dL 07/31/2017 5:36 PM EDT [facility] UA Ketones Negative Negative mg/dL 07/31/2017 5:36 PM EDT [facility] UA Blood Negative Negative 07/31/2017 5:36 PM EDT [facility] UA pH 7.0 5.0 - 8.0 pH 07/31/2017 5:36 PM EDT [facility] UA Protein Negative Negative mg/dL 07/31/2017 5:36 PM EDT [facility] UA Urobilinogen 2.0(A) <=1 E.U./dL 08/01/19 18 5:36 PM EDT [facility] UA Nitrite Negative Negative 07/31/2017 5:36 PM EDT [facility] UA Leuk Est Negative Negative 07/31/2017 5:36 PM EDT [facility] UA Spec Grav 1.012 1.001 - 1.035 no units 07/31/2017 5:36 PM EDT [facility] Comment: Reference range valid for random specimens only. UA WBC <1 0 - 4 /HPF 07/31/2017 5:36 PM EDT [facility] UA Squam Epi Few /LPF 07/31/2017 5:36 PM EDT [facility] UA Amorph Trace /LPF 07/31/2017 5:36 PM EDT [facility] UA Hyal Cast 7(H) 0 - 2 /LPF 07/31/2017 5:36 PM EDT [facility] Urine URINE SPECIMEN OBTAINED VIA STRAIGHT CATHETER / Unknown 07/31/2017 5:11 PM EDT 07/31/2017 5:15 PM EDT us Nader Holder MD URINE ORDERABLES [place] [address] * XR HIP LEFT AP LATERAL W AP PELVIS (07/31/2017 5:00 PM EDT) Anatomical Region Laterality Modality Hip Radiographic Kelsey ging 07/31/2017 5:00 PM EDT Impressions 07/31/2017 6:08 PM EDT No acute abnormality of the hip or pelvis. Narrative 07/31/2017 6:08 PM EDT XR HIP LEFT AP LATERAL W AP PELVIS, ??07/31/2017 5:00 PM CLINICAL HISTORY: ??-FALL COMPARISON: ??01/12/2017. PROCEDURE COMMENTS: ??AP view of the pelvis with AP and frog-leg views of the hip. FINDINGS: Mild degenerative changes involve both hips, left slightly greater than right. No fracture or dislocation identified. Procedure Note Fantasma Silva MD - 07/31/2017 XR HIP LEFT AP LATERAL W AP PELVIS, 07/31/2017 5:00 PM CLINICAL HISTORY: -FALL COMPARISON: 01/12/2017. PROCEDURE COMMENTS: AP view of the pelvis with AP and frog-leg views ofthe hip. FINDINGS: Mild degenerative changes involve both hips, left slightly greater thanright. No fracture or dislocation identified. IMPRESSION: No acute abnormality of the hip or pelvis. Nader Holder MD [facility] DIAGNOSTIC IMAGING ORDER MONTY Final Result * XR CHEST PA AND LATERAL (07/31/2017 4:53 PM EDT) Anatomical Region Laterality Modality Chest Radiographic Kelsey ging 07/31/2017 4:53 PM EDT Impressions 07/31/2017 6:06 PM EDT IMPRESSION: ??No acute finding. Narrative 07/31/2017 6:06 PM EDT PA AND LATERAL CHEST X-RAY, ??07/31/2017 4:53 PM CLINICAL HISTORY: ??-FALL COMPARISON: ?? 06/26/2017. PROCEDURE COMMENTS: Frontal and lateral views of the chest. FINDINGS: Cardiovascular structures within normal limits. ??No pneumonia or effusion. ??No pneumothorax. There is flowing hyperostosis along the anterior margins of the thoracic spine, suggesting DISH. Procedure Note Fantasma Silva MD - 07/31/2017 PA AND LATERAL CHEST X-RAY, 07/31/2017 4:53 PM CLINICAL HISTORY: -FALL COMPARISON: 06/26/2017. PROCEDURE COMMENTS: Frontal and lateral views of the chest. FINDINGS: Cardiovascular structures within normal limits. No pneumonia or effusion.No pneumothorax. There is flowing hyperostosis along the anterior margins ofthe thoracic spine, suggesting DISH. IMPRESSION: IMPRESSION: No acute finding. Nader Holder MD [facility] DIAGNOSTIC IMAGING ORDER MONTY Final Result * DIFFERENTIAL (07/31/2017 4:43 PM EDT) Segs Percent 54 % 07/31/2017 5:30 PM EDT [facility] Lymph Percent 20 % 07/31/2017 5:30 PM EDT [facility] [place] Percent 12 % 07/31/2017 5:30 PM EDT [facility] Eos Percent 6 % 07/31/2017 5:30 PM EDT [facility] Bands Percent 2 <=10 % 07/31/2017 5:30 PM EDT [facility] Myelocyte Percent 2 % 07/31/2017 5:30 PM EDT [facility] Atyp Lymph 4 <=10 % 07/31/2017 5:30 PM EDT [facility] Neut # 2.1 1.8 - 7.7 x10(3)/[facility] 07/31/2017 5:30 PM EDT [facility] Lymph # 0.9 0.6 - 4.8 x10(3)/[facility] 07/31/2017 5:30 PM EDT [facility] [place] # 0.5 0.0 - 1.3 x10(3)/[facility] 07/31/2017 5:30 PM EDT [facility] Eos# 0.2 0.0 - 0.5 x10(3)/[facility] 07/31/2017 5:30 PM EDT [facility] Myelo # 0.1 x10(3)mcL 07/31/2017 5:30 PM EDT [facility] [place] Slight 07/31/2017 5:30 PM EDT [facility] Blood VENOUS BLOOD / Unknown Venipuncture / Unknown 07/31/2017 4:43 PM EDT 07/31/2017 4:49 PM EDT us Nader Holder MD HEMATOLOGY ORDERABLES Final Result Performing Organization Address City/[facility]/[place] [address] * TROPONIN-T (07/31/2017 4:43 PM EDT) [facility] Troponin-T <0.01 <0.01 ng/mL 07/31/2017 5:10 PM EDT [facility] Blood VENOUS BLOOD / Unknown Venipuncture / Unknown 07/31/2017 4:43 PM EDT 07/31/2017 4:49 PM EDT Narrative [facility] - 07/31/2017 5:10 PM EDT Values > or = 0.01 ng/mL have been shown to have prognostic value. us Nader Holder MD CHEMISTRY ORDERABLES Final R esult Performing Organization Address City/[facility]/[place] [address] * (ABNORMAL) BASIC METABOLIC PANEL (07/31/2017 4:43 PM EDT) [facility] Sodium 143 136 - 145 mmol/L 07/31/2017 5:07 PM [facility] Potassium 3.8 3.5 - 5.0 mmol/L 07/31/2017 5:07 PM [facility] Chloride 103 98 - 107 mmol/L 07/31/2017 5:07 PM [facility] Total CO2 30(H) 22 - 29 mmol/L 07/31/2017 5:07 PM [facility] Anion Gap 10 7 - 16 mmol/L 07/31/2017 5:07 PM [facility] Calcium 8.3(L) 8.8 - 10.2 mg/dL 07/31/2017 5:07 PM [facility] Glucose Lvl 102(H) 82 - 100 mg/dL 07/31/2017 5:07 PM [facility] BUN 13 8 - 23 mg/dL 07/31/2017 5:07 PM [facility] Creatinine 1.19 0.67 - 1.30 mg/dL 07/31/2017 5:07 PM [facility] GFR Afr Am 71 mL/min/1.7 3 m2 07/31/2017 5:07 PM [facility] GFR Non Afr Am 61 mL/min/1.7 3 m2 07/31/2017 5:07 PM [facility] Comment: GFR Afr Am [...] VENOUS BLOOD / Unknown Venipuncture / Unknown 07/31/2017 4:43 PM EDT 07/31/2017 4:49 PM EDT Nader Holder MD CHEMISTRY ORDERABLES Final R esult [facility] [address] [place] [address] * (ABNORMAL) CBC WITH DIFF (07/31/2017 4:43 PM EDT) [facility] WBC 3.8(L) 4.0 - 11.0 x10(3)/mcL 07/31/2017 5:30 PM EDT [facility] RBC 3.47(L) 4.30 - 5.81 x10(6)/mcL 07/31/2017 5:30 PM EDT [facility] Hgb 11.0(L) 13.5 - 17.1 gm/dL 07/31/2017 5:30 PM EDT [facility] Hct 32.7(L) 38.9 - 51.6 % 07/31/2017 5:30 PM EDT [facility] MCV 94.4 82.5 - 99.8 fL 07/31/2017 5:30 PM EDT [facility] MCH 31.6 27.0 - 34.3 pg 07/31/2017 5:30 PM EDT [facility] MCHC 33.5 32.1 - 35.3 gm/dL 07/31/2017 5:30 PM EDT [facility] RDW 15.6(H) 11.5 - 15.0 % 07/31/2017 5:30 PM EDT [facility] Platelet 182 144 - 423 x10(3)/mcL 07/31/2017 5:30 PM EDT [facility] MPV 7.1 6.8 - 10.8 fL 07/31/2017 5:30 PM EDT [facility] Blood VENOUS BLOOD / Unknown Venipuncture / Unknown 07/31/2017 4:43 PM EDT 07/31/2017 4:49 PM EDT us Nader Holder MD HEMATOLOGY ORDERABLES Final Result [facility] [address] [place] [address] * EK EKG 12 LEAD (07/31/2017 4:20 PM EDT) Anatomical Region Laterality Modality Electrocardiogra phy 07/31/2017 4:30 PM EDT Impressions 07/31/2017 8:08 PM EDT ? Stationary ECG Study ?[facility] ? Interpretive Statements ? SINUS RHYTHM WITH PVC'S Electronically Signed On 07-31-2017 20:08:21 EDT by Chelsey Nolen MD Narrative Procedure Note Chelsey Nolen MD - 07/31/2017 IMPRESSION Stationary ECG Study [facility] Interpretive Statements SINUS RHYTHM WITH PVC'S Electronically Signed On 07-31-2017 20:08:21 EDT by Chelsey Nolen MD us Nader Holder MD IMG ECG ORDERABLES Final Res ult documented in this encounter Visit Diagnoses Diagnosis Fall, initial encounter- Primary Peripheral edema Edema documented in this encounter Care Teams Lamp Decorator Relationship Specialty Start Date End Date Kevin Leong Sr., MD [address] [place] [phone] PCP - General It Support Consultant 10/29/13 documented as of this encounter
--- OUTSIDE RECORDS SUMMARY | 2024-02-27 10:43 | XMS_ITS | Encounter Summary ---
Author Organization [place] [address] Care Team Providers Care Pallet Rectifier Name Role Phone Salo Segovia MD, Kevin Hollingsworth Primary Care Provid er Reason for Visit * Reason Comments Psychiatric Evaluation pt. from [facility]. Stated he was going to hang himself today. Denies trying. Hx schizophrenia * Auth/Cert/Inpt Specialty Diagnoses / Procedures Referred By Contac t Referred To Contact Diagnoses History of paranoid schizophrenia Depression with suicidal ideation Referral ID Status Reason Start Date Expiration Date Visits Re quested Visits Authorized [id number] 1 1 Encounter Details Date Type Department Care Team (Latest Contact Info) Description 07/10/2017 12:11 PM EDT - 07/12/2017 2:00 PM EDT Hospital Encounter EDG MICU [facility] [place] [address] Jeb Medina MD [address] [place] [address] [place] [address] Kamaljit Eid MD [address] [place] [address] [place] [address] Depression with suicidal ideation (Primary Dx); History of paranoid schizophrenia Discharge Disposition: Home or Self Care Social [...] Sign Reading Time Taken Comments Blood Pressure 129/71 07/12/2017 9:15 AM EDT Pulse 70 07/12/2017 9:15 AM EDT Temperature 36.5 ??C (97.7 ??F) 07/12/2017 9:15 AM ED T Respiratory Rate 20 07/12/2017 9:15 AM EDT Oxygen Saturation 99% 07/12/2017 9:15 AM EDT Inhaled Oxygen Concentration - - Weight 94.9 kg (209 lb 3.5 oz) 07/10/2017 9:10 P M EDT Height 180.3 cm (5' 11 ) 07/10/2017 9:10 PM EDT Body Mass Index 29.18 07/10/2017 9:10 PM EDT documented in this encounter Discharge Summaries * Najma Wellington MD - 07/11/2017 3:19 PM EDT [facility] Patient Name: Renan Goncalves : 1945 Admit Date: 07/10/2017 Discharge Date: 07/11/2017 Admitting Physician: Kamaljit Eid MD Discharging Physician: Najma Wellington MD Reason for Hospitalization: Chief Complaint Patient presents with ??? Psychiatric Evaluation pt. from [facility]. Stated he was going to hang himself today. Denies trying. Hx schizophrenia Active Hospital Problems Diagnosis ??? *Suicidal ideation ??? Major neurocognitive disorder due to another medical condition ??? Chronic paranoid schizophrenia (HCC) ??? Essential hypertension ??? Morbid obesity due to excess calories (HCC) ??? Combined systolic and diastolic congestive heart failure, NYHA class 4 (HCC) ??? Bilateral lower extremity edema ??? Chronic major depressive disorder, recurrent episode (HCC) ??? Morbid obesity (HCC) Brief Hospital Summary: Suicidal ideation: The patient reportedly tried to hang himself on the morning of admission. He wasmonitored in the ICU with suicide precautions on a 72 hour hold while awaiting a bed to open on thepsychiatry unit. Medications per psychiatry. Medically stable to transfer to [facility] as [facility] is closed and moving to [facility]. Further med adjustments to be performed there. ?? Paranoid schizophrenia: Medications per psychiatry. TSH ok. ?? HTN: Continue home medications -norvasc and coreg. ?? Combined systolic and diastolic congestive heart failure, NYHA class 4: currently compensated, continue to monitor volemic status on lasix, Coreg. Not a candidate for PAT/ARB with CKD ?? GERD: Continue PPI ?? CKD Renal function stable, avoid nephrotoxic medications ?? Anemia: Mild, B12 and Folate ok ?? DVT Prophylaxis: Ambulate when feasible ?? Code Status: Full Code Labs and imaging follow-up needed: none Consultants: Treatment Team: Consulting Physician: Eddie Ace MD Discharge Exam: Vitals: 07/11/17 1400 BP: 142/65 Pulse: 67 Resp: 15 Temp: SpO2: 97% CONSTITUTIONAL: Alert and oriented x 2. NAD. CARDIOVASCULAR: normal rate and regular rhythm. No murmur heard. PULMONARY/CHEST: CTA bilat.. No W/R/R. ABDOMINAL: soft, non-tender; normal BS. MUSCULOSKELETAL: no atrophy or effusions. No edema. NEURO: non-focal, no lateralizing weakness. PSYCHIATRIC: normal mood. Flat affect. Suicidal thoughts but no plan. Contracts for safety. Correct Full Discharge Med List: Medication List CONTINUE taking these medications acetaminophen 325 mg Tab Dose: 650 mg Refills: 0 Commonly known as: TYLENOL amantadine HCl 100 mg Cap Dose: 100 mg Refills: 0 Commonly known as: SYMMETREL amLODIPine 2.5 mg Tab Dose: 2.5 mg Refills: 0 Commonly known as: NORVASC aspirin 81 mg Chew Dose: 81 mg Refills: 0 atorvastatin 10 mg Tab Dose: 10 mg Refills: 0 Commonly known as: LIPITOR carvedilol 25 mg Tab Dose: 25 mg Refills: 0 Commonly known as: COREG Donepezil 23 mg Tab Refills: 0 Commonly known as: ARICEPT doxazosin 2 mg Tab Dose: 2 mg Refills: 0 Commonly known as: CARDURA FLUoxetine 40 mg Cap Dose: 40 mg Refills: 0 Commonly known as: PROzac fUROsemide 40 mg Tab Dose: 40 mg Refills: 0 Commonly known as: LASix guaiFENesin-dextromethorphan 10-100 mg/5 mL Syrp Dose: 10 mL Refills: 0 Commonly known as: ROBITUSSIN DM haloperidol 5 mg Tab Dose: 5 mg Refills: 0 Commonly known as: HALDOL loperamide 2 mg Cap Refills: 0 Commonly known as: IMODIUM ondansetron 4 mg Tbdl Dose: 4 mg Refills: 0 Commonly known as: ZOFRAN-ODT pantoprazole 40 mg Tbec Dose: 40 mg Refills: 0 Commonly known as: PROTONIX potassium chloride 10 mEq Cpsr Dose: 10 mEq Refills: 0 Commonly known as: MICRO-K risperiDONE 4 mg Tab Dose: 4 mg Refills: 0 Commonly known as: RisperDAL Saccharomyces boulardii 250 mg Cap Dose: 250 mg Refills: 0 Commonly known as: FLORASTOR senna 8.6 mg Tab Dose: 8.6 mg Refills: 0 Commonly known as: SENOKOT vitamin D 50,000 unit Cap Refills: 0 Generic drug: ergocalciferol VRAYLAR 1.5 mg Cap Dose: 1.5 mg Refills: 0 Generic drug: cariprazine STOP taking these medications simvastatin 10 mg Tab Commonly known as: ZOCOR spironolactone 25 mg Tab Commonly known as: ALDACTONE terazosin 2 mg Cap Commonly known as: HYTRIN valsartan 320 mg Tab Commonly known as: DIOVAN Condition at Discharge: good Disposition: BH2 Follow-up: No follow-up provider specified. Najma Wellington MD 07/11/2017 >30 minutes spent on dc process documented in this encounter Medications at Time [...] Take 10 mg by mouth daily. Balsam Buhl-Belmar Oil (VENELEX) 87-788 mg/gram Top Ointment Apply 1 Dose topically 2 times daily. 1 Tube 07/19/2017 Balsam Marian-Bel[place] Oil (VENELEX) 87-788 mg/gram Top Ointment Apply [...] as needed for Sleep. 30 Tab 07/19/2017 amLODIPine (NORVASC) 2.5 mg Oral Tablet Take [...] 6 hours as needed for Nausea. 8 perphenazine 4 mg Oral Tablet Take 1 Tab by mouth 2 times daily. 60 Tab 07/19/2017 8 risperiDONE (RISPERDAL) 4 mg tablet Take 4 mg by mouth 2 times daily. 8 senna (SENOKOT) 8.6 mg Oral Tablet Take 8.6 mg by mouth daily. 8 documented as of this encounter Discharge Disposition Disposition Code Departure Means Destination Comment s Home or Self [facility] documented in this encounter Progress Notes * Ash Sheffield - 07/12/2017 2:[address] light repairer helper completed initial visit with this patient during normal rounds in order to introduce pastoral care services, assess spiritual needs, and offer spiritual support. The patient was sittingin his chair eating lunch. After a brief conversation about how the patient is doing today, the patient expressed having no unmet spiritual needs at this time. This street light repairer helper provided support to this patient through engaged presence, active listening, and hospitality. Pastoral Care will continue to be available to this patient and family during hospital stay. Rev. Chaplain Zac ([id number]) 07/12/17 1300 Pastoral Care Encounter Visited With Patient Date of visit 07/12/17 Visit Type Initial Need to follow-up? No Pastoral Care Plan/Intervention Plan/Intervention Active Listening * Najma Wellington MD - 07/12/2017 1:26 PM EDT Images from the original note were not included. PROGRESS NOTE Assessment/Plan: Major neurocognitive disorder due to another medical condition *Suicidal ideation Chronic paranoid schizophrenia (HCC) Chronic major depressive disorder, recurrent episode (HCC) Transfer to [facility] per Dr Ace, likely today DC-readmit already completed Essential hypertension Continue norvasc and coreg Morbid obesity due to excess calories (HCC) Combined systolic and diastolic congestive heart failure, NYHA class 4 (HCC) BB, lasix, not a candidate for PAT/ARB with CKD Bilateral lower extremity edema Trace on exam Dispo: to [facility] Active Hospital Problems Diagnosis ??? *Suicidal ideation ??? Major neurocognitive disorder due to another medical condition ??? MCI (mild cognitive impairment) ??? Chronic paranoid schizophrenia (HCC) ??? Essential hypertension ??? Morbid obesity due to excess calories (HCC) ??? Combined systolic and diastolic congestive heart failure, NYHA class 4 (HCC) ??? Bilateral lower extremity edema ??? Chronic major depressive disorder, recurrent episode (HCC) Subjective: No new complaints. Objective: BP 129/71 (BP Location: Right arm, Patient Position: Semi Fowlers) Pulse 70 Temp 97.7 ??F (36.5??C) (Oral) Resp 20 Ht 5' 11 (1.803 m) Wt 209 lb 3.5 oz (94.9 kg) SpO2 99% BMI 29.18 kg/m?? I/O last 3 completed shifts: In: 360 [P.O.:360] Out: 380 [Urine:380] Weight: 209 lb 3.5 oz (94.9 kg) Constitutional: Oriented to person, place, and time. No distress. Cardiovascular: Normal rate and regular rhythm. Exam reveals no friction rub. No murmur heard. Pulmonary/Chest: Effort normal and breath sounds normal. No respiratory distress. There is no wheezes. Abdominal: Soft. Bowel sounds are normal. No distension. There is no tenderness. There is no rebound and no guarding. Musculoskeletal: No edema. Neurological: grossly normal. Skin: Skin is warm and dry. No erythema. Psychiatric: depressed mood and affect. +suicidal thoughts but denies plan Labs: Laboratory data and diagnostic testing reviewed from 07/12/17. Najma Wellington MD 07/12/2017 1:27 PM Time spent with patient > 25 minutes spent on evaluation and treatment including but not limitedto reviewing medication list, nurse's and Specialists notes, labs and tests, old and recent medicalrecords, and discussing appropriate information with the patient and/or family. Relevant information was discovered and affected the care of the patient today. * Eddie Ace MD - 07/12/2017 8:36 AM EDT Inpatient Psychiatry Progress Note Admit Date: 07/10/2017 LOS: 2 days Attending: Kamaljit Eid MD Subjective: I still have thoughts of suicide The patient was seen for the follow-up. The patient still admits to thoughts of suicide, but the patient is calm and cooperative. The patient was oriented to person and place, he told me it was July2017. The patient still stated about having chronic auditory hallucinations, the patient denied thecommand nature of hallucinations. According to the notes yesterday the patient stated he was not suicidal anymore, apparently he changes his complaints quite a lot. Objective: Patient Vitals for the past 24 hrs: BP Temp Temp src Pulse Resp SpO2 07/12/17 0540 134/66 98.4 ??F (36.9 ??C) Oral 64 20 - 07/11/17 2354 124/48 98.2 ??F (36.8 ??C) Oral 63 18 - 07/11/17 1945 136/56 98.2 ??F (36.8 ??C) Oral 68 20 - 07/11/17 1500 130/57 98 ??F (36.7 ??C) Oral 69 19 96 % 07/11/17 1400 142/65 - - 67 15 97 % 07/11/17 1300 148/65 - - 63 16 94 % 07/11/17 1200 159/63 - - 79 18 97 % 07/11/17 1148 156/65 97.7 ??F (36.5 ??C) Oral 71 18 95 % 07/11/17 1128 152/63 - - - - - 07/11/17 1100 152/63 - - 76 18 94 % 07/11/17 1000 157/63 - - 79 19 93 % 07/11/17 0900 159/70 - - 76 20 94 % Labs: Labs were reviewed Review of Systems: A comprehensive ROS was completed including: Constitutional, HEENT, Cardiovascular, Respiratory, GI, SIVAN, Musculoskeletal, Integumentary, Neurological, Psychiatric, Endocrine, Hematology/Lymphatics. All were negative except for what was noted above in HPI. Scheduled Meds: ??? amantadine HCl 100 mg Oral BID ??? amLODIPine 10 mg Oral Daily ??? aspirin 81 mg Oral Daily ??? atorvastatin 10 mg Oral Daily ??? carvedilol 25 mg Oral BID WM ??? doxazosin 2 mg Oral Daily ??? FLUoxetine 40 mg Oral BID ??? fUROsemide 40 mg Oral BID ??? memantine 5 mg Oral BID ??? pantoprazole 40 mg Oral Daily ??? potassium chloride 10 mEq Oral BID ??? risperiDONE 3 mg Oral BID ??? Saccharomyces boulardii 250 mg Oral BID ??? senna 8.6 mg Oral Daily Family History Problem Relation Age of Onset ??? Cancer Mother ??? Heart Disease Father Social History Social History ??? Marital status: Single Spouse name: N/A ??? Number of children: N/A ??? Years of education: N/A Occupational History ??? Not on file. Social History Main Topics ??? Smoking status: Never Smoker ??? Smokeless tobacco: Never Used ??? Alcohol use No ??? Drug use: No ??? Sexual activity: Not on file Other Topics Concern ??? Not on file Social History Narrative ??? No narrative on file Past Medical History: Diagnosis Date ??? KARINA (acute kidney injury) (HCC) 05/31/2016 ??? CHF (congestive heart failure) (HCC) ??? Depression ??? High cholesterol ??? Hypertension ECHO 02/2015- EF 60-65% ??? 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 Obesity ??? Paranoid schizophrenia (HCC) ??? Pneumonia ??? Urinary incontinence Past Surgical History: Procedure Laterality Date ??? HAND SURGERY ??? TONSILLECTOMY Mental Status Exam: Estimated Reliability: Unreliable Appearance: Fair Dress: Appropriate Psychomotor Activity: Psychomotor Retardation Attitude: Cooperative Responsiveness: Alert Speech: Slow and Soft Mood: Anxious Affect: Constricted Thought Process: Illogical and Confused Thought Content: Hallucinations The patient admits to chronic auditory hallucinations Perception: Hallucinations Orientation: Person and Place Memory: Deficit Insight: Does not understand problem Judgement: Poor Abnormal Involuntary Movement: Absent Assessment: Provisional Diagnosis: [place] I: Chronic paranoid schizophrenia Major depressive disorder, recurrent, moderate Major neurocognitive disorder, mixed type, late onset, with depressed mood History of polysubstance dependence, in sustained full remission To rule out delirium ?? [place] II: deferred [place] III: see PMH/PSH [place] IV: severe [place] V: 20 Active Hospital Problems Diagnosis ??? *Suicidal ideation ??? Major neurocognitive disorder due to another medical condition ??? Chronic paranoid schizophrenia (HCC) ??? Essential hypertension ??? Morbid obesity due to excess calories (HCC) ??? Combined systolic and diastolic congestive heart failure, NYHA class 4 (HCC) ??? Bilateral lower extremity edema ??? Chronic major depressive disorder, recurrent episode (HCC) ??? Morbid obesity (HCC) Plan: The patient was seen for the follow-up. The patient still admits to chronic auditory hallucinations, I suspect that those hallucinations or close to his baseline. The patient is more alert today, the patient is not as disoriented, he could tell me it was July 2017. The patient still expresses thoughts of suicide. The patient may be admitted to 2, the patient may need inpatient psychiatric admission as he still reports some suicidality. Will continue current medication management, will follow. Eddie Ace MD * Court Sácnhez RN - 07/11/2017 5:02 PM EDT Patient denies suicidal ideation at this time. Able to ambulate around the unit with ease using a walker. Court Sánchez RN * Claudine Vu BSW - 07/11/2017 12:41 PM EDT Sw - Assessment - Pt admitted from [facility], 72 hour hold, suicide ideations. Psychiatry has seen, changing medications. Eduardo sent message to psychiatry for recommendations/plan of care for pt. Eduardocall to [facility] and left message for director to call Sw back. Addendum - met with pt - pt slow to respond, stated that still wants to hurt self, but seems to have some confusion. Pt has history of schizophrenia, increasing dementia. Eduardo received return call fromOxly at [facility] whom informed that over the past several months pt has had increasing difficulty with caring for self, has become incontinent and having difficulty with caring for self. Hallie stated that unsure if able to accept pt back as [facility], reporting that has had some increased confusion/dementia, become incontinent ofstool in the past few weeks, decline in ability for self care, and has had multiple falls recently.Hallie stated that will need to re-evaluate pt prior to returning to personal longterm, and she is recommending that pt go to nursing facility for skilled and then be reevaluated for personal longterm. Pt is alert and oriented, pt has a brother who lives in [place] and has friends in the personal longterm. Sw requesting PT evaluation. Multiple proactive referrals have been sent to [facility] * Allie Sheehan RD,LD - 07/11/2017 7:[address] [facility] Nutrition Assessment Evidence supported diagnosis: Mild protein-calorie malnutrition Indicators: > OR = 7.5% weight loss in 3 months In the context of Social/behavioral/environmental Nutrition Prescription: Estimated kcal needs: ~1900 kcal (20 kcal/kg) Estimated protein needs: 86-112 (1-1.3 g/kg) Plan/Interventions: Meals and Snacks: Regular - suicide precautions Medical Food Supplements: ensure BID Vitamin and Mineral Supplements: Multivitamin daily if MD agreeable Collaboration and Referral of Nutrition Care: team Renan Goncalves is a 72 y.o. male patient. Admit Diagnosis: History of paranoid schizophrenia [Z86.59] Depression with suicidal ideation [F32.9, R45.851] Subjective: Pt reports decreased appetite over the last month probably less then half of usual but difficult time quantifying. Agreeable to ensure with meals. Height: 5' 11 (180.3 cm) Weight: 209 lb 3.5 oz (94.9 kg) Body mass index is 29.18 kg/m??. IBW: 172 lb +/- 10% % IBW: 122% Weight history: ~ 3 months ago: 257 vs 275 lbs within days per EPIC ~ 14 months ago: 269.5 lbs Amount of weight loss: 48 lbs in 3 months using weight of 257 % weight loss: 18% which is severe. Nutrition Focused Physical Exam: Subcutaneous Fat Loss: Orbital: moderate/mild Triceps: well-nourished Thoracic/lumbar: unable to assess Muscle Loss: Temporalis: moderate/mild Clavicle- pectoralis, trapezius: well-nourished Clavicle and acromium (shoulder): moderate/mild Scapula: unable to assess Interosseous: well-nourished Patellar: well-nourished Quadricep: well-nourished Gastrocnemius (calf): well-nourished Assessment of functional status: No dysfunction per pt Current Diet order: SUICIDE PRECAUTIONS DIET Supplements: ensure PO Intakes: difficult to quantify Food allergies/intolerance: NKFA Chewing/swallowing difficulties: no problems per pt, does prefer softer foods at times Skin: Stage II coccyx Tk: Objective PMH: Past Medical History: Diagnosis Date ??? KARINA (acute kidney injury) ([facility]) 05/31/2016 ??? CHF (congestive heart failure) ([facility]) ??? Depression ??? High cholesterol ??? Hypertension ECHO 02/2015- EF 60-65% ??? Obesity ??? Paranoid schizophrenia ([facility]) ??? Pneumonia ??? Urinary incontinence Past Surgical History: Procedure Laterality Date ??? HAND SURGERY ??? TONSILLECTOMY I/O last 3 completed shifts: In: - Out: 400 [Urine:400] Edema: Abdomen:When was last BM? (Date): 07/10/17 Last BM:07/10/17 Stool assessment: Stool Assessment When was last BM? (Date): 07/10/17 (07/10/172120) Vitals: Temp (24hrs), Av.8 ??F (36.6 ??C), Min:97.4 ??F (36.3 ??C), Max:98.1 ??F (36.7 ??C) Patient Vitals for the past 6 hrs: BP Pulse 07/11/17 0300 161/60 72 07/11/17 0400 154/73 69 Pertinent Labs: Recent Labs 07/10/17 1235 07/11/17 0517 NA 143 144 K 3.5 3.0* CL 100 102 CO2 31* 31* CALCIUM 8.8 8.5* BUN 16 10 CREATININE 1.41* 1.12 GLU 109* 109* Recent Labs 07/10/17 1235 07/11/17 0517 WBC 5.5 5.1 Pertinent Meds: Scheduled Meds: ??? amantadine HCl 100 mg Oral BID ??? amLODIPine 2.5 mg Oral Daily ??? aspirin 81 mg Oral Daily ??? atorvastatin 10 mg Oral Daily ??? carvedilol 25 mg Oral BID WM ??? doxazosin 2 mg Oral Daily ??? FLUoxetine 40 mg Oral BID ??? fUROsemide 40 mg Oral BID ??? memantine 5 mg Oral BID ??? pantoprazole 40 mg Oral Daily ??? potassium chloride 10 mEq Oral BID ??? risperiDONE 4 mg Oral BID ??? Saccharomyces boulardii 250 mg Oral BID ??? senna 8.6 mg Oral Daily ??? spironolactone 12.5 mg Oral Daily ??? valsartan 320 mg Oral Daily Continuous Infusions: ??? sodium chloride 0.9 % PRN Meds:.sodium chloride 0.9 %, acetaminophen OR acetaminophen, acetaminophen, dextrose, glucagon (human recombinant), guaiFENesin- dextromethorphan, ICU Electrolyte Replacement - Calcium, ICU Electrolyte Replacement - Magnesium, ICU Electrolyte Replacement - Phosphate, ICU Electrolyte Replacement - Potassium, nitroGLYCERIN, OLANZapine, OLANZapine (ZyPREXA) IM and diluent, ondansetron OR ondansetron Clinical Course: Pt with h/o paranoid schizophrenia admitted d/t Depression and suicidal ideation. Resident of [facility]. documented in this encounter H&P Notes * Timur Elizondo MD - 07/10/2017 5:35 PM EDT Internal Medicine History and Physical Date of Admission: 07/10/2017 Admitting Physician: Timur Elizondo MD Primary Care Physician: Kevin Leong Sr., MD Chief Complaint: Chief Complaint Patient presents with ??? Psychiatric Evaluation pt. from [facility]. Stated he was going to hang himself today. Denies trying. Hx schizophrenia HPI: Renan Goncalves is a 72 y.o. male who presents to [facility] today with suicidal ideations. He has a history of schizophrenia,and he resides at [facility]. Reportedly he told staff he tried to hang himself this morning. He is vague about the details with me. When I ask him for specifics, he talks about crystal balls and crosses he saw in his room. He tells me now,he changed his mind, and he does not want to kill himself at this moment. Past Medical History: Diagnosis Date ??? KARINA (acute kidney injury) (HCC) 05/31/2016 ??? CHF (congestive heart failure) (HCC) ??? Depression ??? High cholesterol ??? Hypertension ECHO 02/2015- EF 60-65% ??? Obesity ??? Paranoid schizophrenia (HCC) ??? Pneumonia Past Surgical History: Procedure Laterality Date ??? HAND SURGERY No Known Allergies No current facility-administered medications for this encounter. Current Outpatient Prescriptions: ??? acetaminophen Oral tablet, Take 650 mg by mouth every 4 hours as needed for Pain (2 tabs for elevated temp/discomfort)., Disp: , Rfl: ??? amantadine HCl (SYMMETREL) 100 mg Oral Capsule, Take 100 mg by mouth 2 times daily., Disp: , Rfl: ??? amLODIPine (NORVASC) 2.5 mg Oral Tablet, Take 2.5 mg by mouth daily., Disp: , Rfl: ??? Aspirin 81 mg, Take 81 mg by mouth daily., Disp: , Rfl: ??? atorvastatin (LIPITOR) 10 mg Oral Tablet, Take 10 mg by mouth daily., Disp: , Rfl: ??? cariprazine (VRAYLAR) 1.5 mg Oral Capsule, Take 1.5 mg by mouth daily., Disp: , Rfl: ??? carvedilol (COREG) 25 mg Oral Tablet, Take 25 mg by mouth 2 times daily., Disp: , Rfl: ??? Donepezil (ARICEPT) 23 mg Oral Tablet, Take by mouth nightly., Disp: , Rfl: ??? doxazosin (CARDURA) 2 mg Oral Tablet, Take 2 mg by mouth daily., Disp: , Rfl: ??? ergocalciferol (VITAMIN D) 50,000 unit Oral Capsule, Take by mouth once a week., Disp: , Rfl: ??? FLUoxetine (PROZAC) 40 mg capsule, Take 40 mg by mouth 2 times daily., Disp: , Rfl: ??? fUROsemide (LASIX) 40 mg Oral Tablet, Take 40 mg by mouth every 12 hours., Disp: , Rfl: ??? guaiFENesin-dextromethorphan (ROBITUSSIN DM) 10-100 mg/5 mL syrup, Take 10 mL by mouth every 4 hours as needed for Cough., Disp: , Rfl: ??? haloperidol (HALDOL) 5 mg tablet, Take 5 mg by mouth every 4 hours as needed for Agitation (every 4 hours as needed for agitation)., Disp: , Rfl: ??? loperamide (IMODIUM) 2 mg Oral Capsule, Take by mouth 2 times daily., Disp: , Rfl: ??? ondansetron (ZOFRAN-ODT) 4 mg Oral Tablet, Rapid Dissolve, Take 4 mg by mouth every 6 hours as needed for Nausea., Disp: , Rfl: ??? pantoprazole (PROTONIX) 40 mg Oral Tablet, Delayed Release (E.C.), Take 40 mg by mouth daily., Disp: , Rfl: ??? potassium chloride (MICRO-K) 10 mEq Oral Capsule, Sustained Release, Take 10 mEq by mouth 2 times daily., Disp: , Rfl: ??? risperiDONE (RISPERDAL) 4 mg tablet, Take 4 mg by mouth 2 times daily., Disp: , Rfl: ??? Saccharomyces boulardii (FLORASTOR) 250 mg Oral Capsule, Take 250 mg by mouth 2 times daily., Disp: , Rfl: ??? senna (SENOKOT) 8.6 mg Oral Tablet, Take 8.6 mg by mouth daily., Disp: , Rfl: ??? simvastatin (ZOCOR) 10 mg, Take 10 mg by mouth nightly., Disp: , Rfl: ??? spironolactone (ALDACTONE) 25 mg Oral Tablet, Take 0.5 Tabs by mouth daily. (Patient not taking: Reported on 06/01/2017), Disp: 15 Tab, Rfl: 3 ??? terazosin (HYTRIN) 2 mg capsule, Take 2 mg by mouth nightly., Disp: , Rfl: ??? valsartan (DIOVAN) 320 mg tablet, Take 320 mg by mouth daily., Disp: , Rfl: Social History Social History ??? Marital status: Single Spouse name: N/A ??? Number of children: N/A ??? Years of education: N/A Occupational History ??? Not on file. Social History Main Topics ??? Smoking status: Never Smoker ??? Smokeless tobacco: Never Used ??? Alcohol use No ??? Drug use: No ??? Sexual activity: Not on file Other Topics Concern ??? Not on file Social History Narrative ??? No narrative on file Family History Problem Relation Age of Onset ??? Cancer Mother ??? Heart Disease Father Immunization History Administered Date(s) Administered ??? Influenza Patient Reported 01/27/2015 ??? Influenza Vaccine, Unspecified Formulation 01/18/2016 ??? Pneumococcal Conjugate Vaccine 13 Valent 06/01/2016 ??? Td (adult), preservative free 10/29/2013 Review of Systems: The listed systems were reviewed and reveal the following in addition to any already discussed in the HPI: ?? Constitutional: No fever, chills, night sweats, or weight loss ?? Eyes: No visual disturbance ?? HENT: No headache, hearing loss, epistaxis, sore throat, or hoarseness ?? Lungs: No SOB, cough, hemoptysis, or pleuritic chest pain ?? Cardiovascular: No chest pain, PND, orthopnea, palpitations, or lower extremity edema ?? Endocrine: No polydypsia, hot flashes, or polyphagia ?? GI: No abdominal pain, nausea, vomiting, hematemesis, diarrhea, constipation, melena, hematochezia, or bright red blood per rectum ?? : No dysuria, frequency, hesitancy, polyuria, or hematuria ?? Musculoskeletal: No joint pains, myalgias or muscle weakness ?? Neurologic: No focal numbness or weakness ?? Skin: No rash, jaundice, or skin discoloration ?? Psychiatric: No homicidal ideation ?? Hematologic/Allergic: No history of blood clots, bleeding, easy bruising, or anaphylaxis Vital Signs BP 153/69 Pulse 74 Temp 98.1 ??F (36.7 ??C) (Oral) Resp 18 Ht 5' 11 (1.803 m) Wt 275 lb (124.7 kg) SpO2 94% BMI 38.35 kg/m?? General appearance: Pleasant, Conversant, NAD, A&OX3, obese HEENT: ATNC, PERRLA, EOMI, no JVD, neck supple, pres[place], no evidence of trauma Cardiovascular: regular rate and rhythm, without murmurs, rubs, or gallops Lungs: respirations unlabored, CTA Bilaterally, No rales, rhonchi, wheeze, or stridor Abdomen: positive bowel sounds, soft, non-tender to palpation, no hepatosplenomegaly appreciated, non-distended, no guarding, no rebound Extremities: trace pretibial edema, no deformities Neuro: no focal neurological deficits, AAO x3, CN 2-12 grossly intact, moves all extremities spontaneously, sensation intact throughout, muscle strength 5/5 and symmetrical throughout, speech is softand mumbles at times Skin: warm,dry, no rash Mood: flat affect CBC: Lab Results Component Value Date WBC 5.5 07/10/2017 RBC 3.62 (L) 07/10/2017 HGB 11.3 (L) 07/10/2017 HCT 33.7 (L) 07/10/2017 MCV 93.0 07/10/2017 MCHC 33.6 07/10/2017 RDW 15.5 (H) 07/10/2017 MPV 7.4 07/10/2017 BMP: Lab Results Component Value Date NA 143 07/10/2017 K 3.5 07/10/2017 CL 100 07/10/2017 CO2 31 (H) 07/10/2017 BUN 16 07/10/2017 CREATININE 1.41 (H) 07/10/2017 CALCIUM 8.8 07/10/2017 GFRAFRAM 58 07/10/2017 GFRNONAFRAM 50 07/10/2017 GLU 109 (H) 07/10/2017 No results found. Results for orders placed during the hospital encounter of 06/26/17 EK EKG 12 LEAD Impression Stationary ECG Study [facility] Interpretive Statements SINUS RHYTHM WITH FIRST DEGREE AV BLOCK Electronically Signed On 06-26-2017 19:08:38 EDT by Taiwo Pat MD Pertinent imaging and laboratory studies were reviewed. Patient Active Problem List Diagnosis Date Noted ??? Suicidal ideation 07/10/2017 ??? MCI (mild cognitive impairment) 07/25/2016 ??? Acute cystitis with hematuria 06/01/2016 ??? Perineal rash in male ??? Syncope 05/31/2016 ??? KARINA (acute kidney injury) (HCC) 05/31/2016 ??? Diarrhea in adult patient 05/31/2016 ??? Paranoid schizophrenia (HCC) ??? Essential hypertension ??? Morbid obesity due to excess calories (HCC) ??? Combined systolic and diastolic congestive heart failure, NYHA class 4 (HCC) 02/27/2015 ??? Acute right-sided CHF (congestive heart failure) 02/27/2015 ??? Bilateral lower extremity edema 02/27/2015 ??? Medication monitoring encounter 07/06/2014 ??? Chronic major depressive disorder, recurrent episode (HCC) 05/29/2014 ??? Morbid obesity (HCC) 05/29/2014 Assessment and Plan Active Hospital Problems Diagnosis ??? *Suicidal ideation ??? Essential hypertension ??? Morbid obesity due to excess calories (HCC) ??? Combined systolic and diastolic congestive heart failure, NYHA class 4 (HCC) ??? Bilateral lower extremity edema ??? Chronic major depressive disorder, recurrent episode (HCC) ??? Morbid obesity (HCC) Suicidal ideation: The patient reportedly tried to hang himself this morning. He will admitted to the ICU with suicide precautions on a 72 hour hold while awaiting a bed to open on the geropsychiatryunit. Medications per psychiatry. Paranoid schizophrenia: Medications per psychiatry. HTN: Continue home medications and adjust as needed. Combined systolic and diastolic congestive heart failure, NYHA class 4: currently compensated, contto monitor volemic status on lasix, Aldactone, Diovan, Coreg GERD: Continue PPI CKD Monitor renal function, avoid nephrotoxic medications Anemia: Mild, check B12 and Folate DVT Prophylaxis: Ambulate when feasible Code Status: Full Code Timur Elizondo MD 07/10/2017 5:35 PM documented in this encounter Consult Notes * Eddie Ace MD - 07/11/2017 9:01 AM EDTAssociated Order(s): IP CONSULT TO PSYCHIATRY Psychiatry Consult Note Admit Date: 07/10/2017 LOS: 1 day Attending: Kamaljit Eid MD Reason for Consult: CC: I feel okay, I now have thoughts of suicide Chief Complaint Patient presents with ??? Psychiatric Evaluation pt. from [facility]. Stated he was going to hang himself today. Denies trying. Hx schizophrenia Subjective: The patient was seen on a consultation basis. Reportedly the patient exhibited thoughts of suicide in the group home. The patient has a long history of chronic paranoid schizophrenia, the patient still admits to chronic auditory hallucinations. The patient reportedly was depressed lately because a friend of his was moved to physical rehabilitation facility. Yesterday the patient stated to the staff in the group home that he attempted to hang himself. The patient was admitted based on the presentation. The patient's psychiatric history is quite extensive, the patient had numerous psychiatric hospitalizations in the past, the patient has a history of chronic paranoid schizophrenia. Recently the patient has been more depressed, the patient also stated that he was depressed because his friend was moved to physical repetition facility. The patient also reportedly has been declining physically, the patient was incontinent, he had problems ambulating. The patient's medication regimen was reviewed, the patient in fact would have simplified medication regimen, I noticed that on the outpatient basis the patient has been on Risperidone4 mg PO twice a day, Vrylar 1.5 mg Po daily, Aricept 23 mg PO at bedtime, Prozac 40 mg twice a day,the patient has been on Amantadine 100 mg PO twice a day, also on Imodium 2 mg twice a day. In fact simplifying medication regimen would be quite helpful, to avoid confusion regarding medication management and potential drug interactions. The patient also has been suffering from a cognitive decline, I noticed part of the dementia workuphas been done. Past Psych Hx: The patient has a long psychiatric history, with many psychiatric hospitalizations in the past. Thepatient had a diagnosis of chronic paranoid schizophrenia. The patient had last psychiatric admission to [place] in 2008, he was under the care of Dr. Triplett. The patient has been followed up by Dr. Stevens on the outpatient basis into a group home. The patient has tried numerous antipsychotics and antidepressants in the past. Old records were reviewed. The patient has a history of polysubstance abuse starting in teenage years, he developed schizophrenia at the age of 25. The patient has tried numerous medications in the past. Family Psych Hx: Reportedly the patient has negative family psychiatric history. Social Hx: The patient is single, the patient has never been . The patient has been placed in the group home a while ago, the patient in the past lived in a half-way house. The social support system is not the best. Labs: Admission on 07/10/2017 Component Date Value ??? WBC 07/10/2017 5.5 ??? RBC 07/10/2017 3.62* ??? Hgb 07/10/2017 11.3* ??? Hct 07/10/2017 33.7* ??? MCV 07/10/2017 93.0 ??? MCH 07/10/2017 31.2 ??? MCHC 07/10/2017 33.6 ??? RDW 07/10/2017 15.5* ??? Platelet 07/10/2017 194 ??? MPV 07/10/2017 7.4 ??? Neut Percent 07/10/2017 79.3 ??? Lymph Percent 07/10/2017 10.8 ??? [place] Percent 07/10/2017 8.5 ??? Eos Percent 07/10/2017 1.2 ??? Baso Percent 07/10/2017 0.2 ??? Neut # 07/10/2017 4.4 ??? Lymph # 07/10/2017 0.6 ??? [place] # 07/10/2017 0.5 ??? Eos# 07/10/2017 0.1 ??? Baso # 07/10/2017 0.0 ??? Sodium 07/10/2017 143 ??? Potassium 07/10/2017 3.5 ??? Chloride 07/10/2017 100 ??? Total CO2 07/10/2017 31* ??? Anion Gap 07/10/2017 12 ??? Calcium 07/10/2017 8.8 ??? Glucose Lvl 07/10/2017 109* ??? BUN 07/10/2017 16 ??? Creatinine 07/10/2017 1.41* ??? GFR Afr Am 07/10/2017 58 ??? GFR Non Afr Am 07/10/2017 50 ? ? Alcohol Medical 07/10/2017 <10 ??? 6 AM (Heroin) 07/10/2017 Absent ??? Amphetamines 07/10/2017 Absent ??? Barbiturates 07/10/2017 Absent ??? Benzodiazepines 07/10/2017 Absent ??? Buprenorphine 07/10/2017 Absent ??? Cannabinoid Metabolite 07/10/2017 Absent ??? Cocaine Metabolite 07/10/2017 Absent ??? Methadone and Metabolite 07/10/2017 Absent ??? Opiate 07/10/2017 Absent ??? Oxycodone Lvl 07/10/2017 Absent ??? Phencyclidine 07/10/2017 Absent ? ? Creatinine Ur 07/10/2017 >25.0 ??? WBC 07/11/2017 5.1 ??? RBC 07/11/2017 3.61* ??? Hgb 07/11/2017 11.3* ??? Hct 07/11/2017 34.2* ??? MCV 07/11/2017 94.8 ??? MCH 07/11/2017 31.4 ??? MCHC 07/11/2017 33.1 ??? RDW 07/11/2017 14.8 ??? Platelet 07/11/2017 188 ??? MPV 07/11/2017 8.1 ??? Neut Percent 07/11/2017 72.6 ??? Lymph Percent 07/11/2017 16.1 ??? [place] Percent 07/11/2017 8.0 ??? Eos Percent 07/11/2017 2.7 ??? Baso Percent 07/11/2017 0.6 ??? Neut # 07/11/2017 3.7 ??? Lymph # 07/11/2017 0.8 ??? [place] # 07/11/2017 0.4 ??? Eos# 07/11/2017 0.1 ??? Baso # 07/11/2017 0.0 ??? Vitamin B12 07/11/2017 405 ??? Folate 07/11/2017 10.60 ??? Sodium 07/11/2017 144 ??? Potassium 07/11/2017 3.0* ??? Chloride 07/11/2017 102 ??? Total CO2 07/11/2017 31* ??? Anion Gap 07/11/2017 11 ??? Calcium 07/11/2017 8.5* ??? Glucose Lvl 07/11/2017 109* ??? BUN 07/11/2017 10 ??? Creatinine 07/11/2017 1.12 ??? GFR Afr Am 07/11/2017 76 ??? GFR Non Afr Am 07/11/2017 66 Review of Systems: A comprehensive ROS was completed including: Constitutional, HEENT, Cardiovascular, Respiratory, GI, SIVAN, Musculoskeletal, Integumentary, Neurological, Psychiatric, Endocrine, Hematology/Lymphatics. All were negative except for what was noted above in HPI. Objective: . Vitals: 07/11/17 0300 07/11/17 0400 07/11/17 0500 07/11/17 0600 BP: 161/60 154/73 (!) 114/39 163/59 Pulse: 72 69 57 74 Resp: 20 19 12 15 Temp: 98.4 ??F (36.9 ??C) TempSrc: Oral SpO2: Weight: Height: Scheduled Meds: ??? amantadine HCl 100 mg Oral BID ??? amLODIPine 2.5 mg Oral Daily ??? aspirin 81 mg Oral Daily ??? atorvastatin 10 mg Oral Daily ??? carvedilol 25 mg Oral BID WM ??? doxazosin 2 mg Oral Daily ??? FLUoxetine 40 mg Oral BID ??? fUROsemide 40 mg Oral BID ??? memantine 5 mg Oral BID ??? pantoprazole 40 mg Oral Daily ??? potassium chloride 10 mEq Oral BID ??? risperiDONE 3 mg Oral BID ??? Saccharomyces boulardii 250 mg Oral BID ??? senna 8.6 mg Oral Daily ??? spironolactone 12.5 mg Oral Daily ??? valsartan 320 mg Oral Daily Mental Status Exam: Musculoskeletal: The patient was lying in bed Gait: Not tested Behavior: Calm, not agitated Appearance:Fair Abnormal Involuntary Movement:Absent Speech: Impoverished , a little slurred Language: Impoverished Mood:Depressed and Anxious Affect:Constricted Thought Process:Illogical and Confused Thought Content:Hallucinations Chronic auditory hallucinations Perception:Hallucinations SI/HI: Vague thoughts of suicide, denies homicidal ideations Cognition/Orientation: To person and place, not to time Recent/Remote Memory: Poor Insight/Judgement:Does not understand problem Assessment: Provisional Diagnosis: [place] I: Chronic paranoid schizophrenia Major depressive disorder, recurrent, moderate Major neurocognitive disorder, mixed type, late onset, with depressed mood History of polysubstance dependence, in sustained full remission To rule out delirium [place] II: deferred [place] III: see PMH/PSH [place] IV: severe [place] V: 20 Past Medical/Surgical History: Past Medical History: Diagnosis Date ??? KARINA (acute kidney injury) ([facility]) 05/31/2016 ??? CHF (congestive heart failure) ([facility]) ??? Depression ??? High cholesterol ??? Hypertension ECHO 02/2015- EF 60-65% ??? Obesity ??? Paranoid schizophrenia (HCC) ??? Pneumonia ??? Urinary incontinence Past Surgical History: Procedure Laterality Date ??? HAND SURGERY ??? TONSILLECTOMY Active Hospital Problems Diagnosis ??? *Suicidal ideation ??? Essential hypertension ??? Morbid obesity due to excess calories (HCC) ??? Combined systolic and diastolic congestive heart failure, NYHA class 4 (HCC) ??? Bilateral lower extremity edema ??? Chronic major depressive disorder, recurrent episode (HCC) ??? Morbid obesity ([facility]) Plan: The patient was seen on the consultation basis. The patient has a long psychiatric history of chronic paranoid schizophrenia, the patient has been a resident of the group home. The patient stated yesterday that he tried to hang himself, as one of his friends was moved to a rehabilitation facility. The patient seems to be a little drowsy in the morning today, the patient is quite vague about thoughts of suicide. The patient has chronic auditory hallucinations, but probably his hallucinations are at his baseline. The patient also seems to be quite confused, the patient was oriented to person and place, not time. Medical records were reviewed, the patient has a history of schizophrenia going back to the age of 25. The patient also has cognitive deficits as well. The patient's medication regimen will be simplified, as I noticed that the patient has been on 2 atypical antipsychotics, the patient also has been on a very high dose of Prozac. The patient will be placed on Namenda, not solely due to concern for his cognition, but to assist with depressive features and schizophrenia. He also has been declining in terms of his functional abilities. Risperidone will be decreased to 3 mg PO twice a day, I will stop Vrylar. The patient also would benefit from smaller dose of Aricept. I would follow-up the patient, the patient has a history of schizophrenia, cognitive decline, a part of the presentation may be low-grade delirium as well. I noticed that the patient had vitamin B12 level and folic acid obtained, will request TSH as well. Thank you very much for the consultation. Eddie Ace MD documented in this encounter ED Notes * Kareen Alexander MSW - 07/10/2017 1:03 PM EDT Brief Note: Hallie Jie (client administrator from [facility]) reported at 13:03 that patient is being treated by Dr. Dixie Stevens. Ms. Ceron reported patient has been steadily declining. Patient is incontinent of urine and stool and has trouble walking. Patient is receiving PT and OT through [facility]. Ms. Ceron reported patient told the occupational therapist that he wanted to hang himself this morning. reported she spoke with Dr. Dixie Stevens, who reported patient would benefit from an IP admission. SW spoke with Dr. Dixie Stevens, who was at [facility], at 13:06. Dr. Stevens reported patient needed medical clearance but had already been admitted to Dr. Ace. * Megan Wallace RN - 07/10/2017 12:11 PM EDT Bed: 03 Expected date: Expected time: Means of arrival: Comments: ems * Jeb Medina MD - 07/10/2017 12:10 PM EDT Chief Complaint Patient presents with ??? Psychiatric Evaluation pt. from [facility]. Stated he was going to hang himself today. Denies trying. Hx schizophrenia 72-year-old white male arrives in the custody of police officers from [facility] secondary to depression and suicidal ideation. Patient has a history of paranoid schizophrenia, and admits to chronic auditory hallucinations. Denies any command hallucinations. penitentiary staff states the patient has been depressed recently since a friend of his open group home was transferred for physical rehabilitation. Patient told the nursing staff today that he attempted to hang himself this morning. On arrival to the ED, the patient admits to suicidal ideation, but denies any specific plan for self-harm. He denies any homicidal ideation. Patient denies any other acute symptoms, deniesany other specific precipitating factors to his depression, and no other problems or concerns were identified Past medical history--paranoid schizophrenia, hypertension, CHF Social history--denies tobacco or alcohol use Patient History No Known Allergies Home Medications: [...] for chills and fever. HENT: Negative. Eyes: Negative for visual disturbance. Respiratory: Negative for shortness of breath. Cardiovascular: Negative for chest pain and palpitations. Gastrointestinal: Negative for abdominal pain, diarrhea, nausea and vomiting. Genitourinary: Negative for flank pain. Musculoskeletal: Negative. Skin: Negative for rash. Neurological: Negative. Psychiatric/Behavioral: Positive for dysphoric mood, hallucinations and suicidal ideas. Negative for agitation. All other systems reviewed and are negative. Physical Exam Blood pressure 153/69, pulse 74, temperature 98.1 ??F (36.7 ??C), temperature source Oral, resp. rate 18, height 5' 11 (1.803 m), weight 275 lb (124.7 kg), SpO2 94 %. Physical Exam Constitutional: He appears well-developed and well-nourished. No distress. Elderly white male in no apparent distress HENT: Head: Normocephalic and atraumatic. Mouth/Throat: Oropharynx is clear and moist. Eyes: Conjunctivae are normal. Pupils are equal, round, and reactive to light. No scleral icterus. Neck: Neck supple. No JVD present. Cardiovascular: Normal rate, regular rhythm, normal heart sounds and intact distal pulses. Exam reveals no gallop and no friction rub. No murmur heard. Pulmonary/Chest: Effort normal and breath sounds normal. Abdominal: Soft. Bowel sounds are normal. There is no tenderness. Musculoskeletal: He exhibits no edema. Neurological: He is alert. No cranial nerve deficit. Oriented to person, place, and responds appropriately to questions and commands. Skin: Skin is warm and dry. Psychiatric: Flat affect, poor eye contact. Cooperative. Speech is quiet but clear. Patient does not appear to be responding to internal stimuli Nursing note and vitals reviewed. Procedures Radiology/EKG/Labs: Results for orders placed or performed during the hospital encounter of 07/10/17 CBC WITH DIFF Result Value Ref Range WBC 5.5 4.0 - 11.0 x10(3)/mcL RBC 3.62 (L) 4.30 - 5.81 x10(6)/mcL Hgb 11.3 (L) 13.5 - 17.1 gm/dL Hct 33.7 (L) 38.9 - 51.6 % MCV 93.0 82.5 - 99.8 fL MCH 31.2 27.0 - 34.3 pg MCHC 33.6 32.1 - 35.3 gm/dL RDW 15.5 (H) 11.5 - 15.0 % Platelet 194 144 - 423 x10(3)/mcL MPV 7.4 6.8 - 10.8 fL Neut Percent 79.3 % Lymph Percent 10.8 % [place] Percent 8.5 % Eos Percent 1.2 % Baso Percent 0.2 % Neut # 4.4 1.8 - 7.7 x10(3)/mcL Lymph # 0.6 0.6 - 4.8 x10(3)/mcL [place] # 0.5 0.0 - 1.3 x10(3)/mcL Eos# 0.1 0.0 - 0.5 x10(3)/mcL Baso # 0.0 0.0 - 0.2 x10(3)/mcL BASIC METABOLIC PANEL Result Value Ref Range Sodium 143 136 - 145 mmol/L Potassium 3.5 3.5 - 5.0 mmol/L Chloride 100 98 - 107 mmol/L Total CO2 31 (H) 22 - 29 mmol/L Anion Gap 12 7 - 16 mmol/L Calcium 8.8 8.8 - 10.2 mg/dL Glucose Lvl 109 (H) 82 - 100 mg/dL BUN 16 8 - 23 mg/dL Creatinine 1.41 (H) 0.67 - 1.30 mg/dL GFR Afr Am 58 mL/min/1.73 m2 GFR Non Afr Am 50 mL/min/1.73 m2 ALCOHOL MEDICAL Result Value Ref Range Alcohol Medical <10 <=10 mg/dL DRUGS OF ABUSE, SCREEN ONLY, URINE Result Value Ref Range 6 AM (Heroin) Absent Absent Amphetamines Absent Absent Barbiturates Absent Absent Benzodiazepines Absent Absent Buprenorphine Absent Absent Cannabinoid Metabolite Absent Absent Cocaine Metabolite Absent Absent Methadone and Metabolite Absent Absent Opiate Absent Absent Oxycodone Lvl Absent Absent Phencyclidine Absent Absent Creatinine Ur >25.0 mg/dL Narrative These drug classes have been qualitatively screened by immunoassay and are for medical purposes only. Results reported as presumptive positive have not been confirmed. If results don???t reflect the clinical picture, the prescribed medication, or the discussion with the patient, confirmation testing is recommended on the ORIGINAL urine. All urine specimens for drug testing are held for 7 days. If confirmation testing is desired, call the [facility]. Due to possible factors, such as, dilute/adulterated urine, concentration of drug/metabolite being below the cut-off, or antibody specificity of test reagent, a negative result does not rule out druguse. These results are only valid for urine specimens. Any contamination with vaginal pool/amniotic fluid could cause erroneous results. ED Course: Appropriate laboratory and radiology studies reviewed Patient was seen and evaluated. Diagnostic studies were obtained and the patient remained cooperative and hemodynamically stable throughout his entire emergency department course. Diagnostic studies as noted above. Patient presents with a history of paranoid schizophrenia, with depression and suicidal ideation. He currently resides at a local group home, and told the staff there that he tried to hang himself this morning. Although the patient admits to feeling suicidal, he denies specific plan for self-harm at this time. I discussed plans for admission to the hospital, and the patient agrees with this plan of care at this time. As there are no geriatric psychiatry beds available at this time and the patient is placed on a 72 hour hold, patient will require admission to the ICU per hospitalist with geriatric psychiatry consultation. ED Clinical Impression: #1 depression with suicidal ideation #2. History of paranoid schizophrenia Critical Care time Condition at Discharge/Transfer from Department: Stable This chart was completed using voice recognition technology and may contain unintended errors Jeb Medina MD 07/10/17 1644 documented in this encounter Miscellaneous Notes * Plan of Care - Claudine Vu BSW - 07/11/2017 2:58 PM EDT Problem: Disposition/Transition of Care Goal: Patient will have a plan for disposition or transition to next level of care Outcome: Completed Date Met: 07/11/17 Patient will have appropriate discharge services. * Utilization Review Notes - Mickie León RN - 07/11/2017 8:37 AM EDT +Inpatient order and EM correct. Pt admitted to the ICU for SI. He has a HX of paranoid schizophrenia, HTN, CHF. He has chronic auditory hallucinations. He denies HI. He came to the ER in police custody from [facility] due to suicidal ideation with a plan and depression. He stated he was going to hang himself. Patient told the nursing staff today that he attempted to hang himself this morning. Psychiatric/Behavioral: Positive for dysphoric mood, hallucinations and suicidal ideas. Negative for agitation. Drug screen is normal. He has been placed on a 72 hour hold. SW following for DC planning. documented in this encounter Plan of Treatment Not on file documented as of this encounter Procedures Procedure Name Priority Date/Time Associated Diagnosis Comments VITAMIN B12/ FOLIC ACID Routine 07/11/2017 5:18 AM EDT CBC WITH DIFF Routine 07/11/2017 5:17 AM EDT THYROID STIMULATING HORMONE Routine 07/11/2017 5:17 AM EDT BASIC METABOLIC PANEL Routine 07/11/2017 5:17 AM EDT IP CONSULT TO NUTRITION Routine 07/10/2017 9:44 PM EDT IP CONSULT TO PSYCHIATRY STAT 07/10/2017 8:36 PM EDT Procedure Note - Eddie Ace MD - 07/11/2017 9:01 AM EDTThis note is in progress. Psychiatry Consult Note Admit Date: 07/10/2017 LOS: 1 day Attending: Kamaljit Eid MD Reason for Consult: CC: I feel okay, I now have thoughts of suicide Chief Complaint Patient presents with ? ? Psychiatric Evaluation pt. from [facility]. Stated he was going to hang himself today.Denies trying. Hx schizophrenia Subjective: The patient was seen on a consultation basis. Reportedly the patientexhibited thoughts of suicide in the group home. The patient has a long history of chronic paranoid schizophrenia, thepatient still admits to chronic auditory hallucinations. The patientreportedly was depressed lately because [facility] Yesterday the patient stated to the staff in the group home that heattempted to hang himself. The patient was admitted based on thepresentation. The patient's psychiatric history is quite extensive, the patient hadnumerous psychiatric hospitalizations in the past, the patient has ahistory of chronic paranoid schizophrenia. Recently the patient has beenmore depressed, the patient also stated that he was depressed because hisfriend was [facility]. The patient also reportedly has been declining physically, the patient wasincontinent, he had problems ambulating. The patient's medication regimenwas reviewed, the patient in fact would have simplified medicationregimen, I noticed that on the outpatient basis the patient has been onRisperidone 4 mg PO twice a day, Vrylar 1.5 mg Po daily, Aricept 23 mg POat bedtime, Prozac 40 mg twice a day, the patient has been on [id number] mg PO twice a day, also on Imodium 2 mg twice a day. In fact simplifying medication regimen would be quite helpful, to avoidconfusion regarding medication management and potential druginteractions. The patient also has been suffering from a cognitive decline, I noticedpart of the dementia workup has been done. Past Psych Hx: The patient has a long psychiatric history, with many psychiatrichospitalizations in the past. The patient had a diagnosis of chronicparanoid schizophrenia. The patient had last psychiatric admission to [facility] in 2008, he was under the care of Dr. Triplett. The patient hasbeen followed up by Dr. Stevens [facility] The patient has tried numerous antipsychotics and antidepressants inthe past. Old records were reviewed. The patient has a history of polysubstance abuse starting in teenageyears, he developed schizophrenia at the age of 25. The patient has triednumerous medications in the past. Family Psych Hx: Reportedly the patient has negative family psychiatric history. Social Hx: The patient is single, the patient has never been . The patient hasbeen placed in the group home a while ago, the patient in the past livedin a half-way house. The social support system is not the best. Labs: Admission on 07/10/2017 Component Date Value ? ? WBC 07/10/2017 5.5 ? ? RBC 07/10/2017 3.62* ? ? Hgb 07/10/2017 11.3* ? ? Hct 07/10/2017 33.7* ? ? MCV 07/10/2017 93.0 ? ? MCH 07/10/2017 31.2 ? ? MCHC 07/10/2017 33.6 ? ? RDW 07/10/2017 15.5* ? ? Platelet 07/10/2017 194 ? ? MPV 07/10/2017 7.4 ? ? Neut Percent 07/10/2017 79.3 ? ? Lymph Percent 07/10/2017 10.8 ? ? [place] Percent 07/10/2017 8.5 ? ? Eos Percent 07/10/2017 1.2 ? ? Baso Percent 07/10/2017 0.2 ? ? Neut # 07/10/2017 4.4 ? ? Lymph # 07/10/2017 0.6 ? ? [place] # 07/10/2017 0.5 ? ? Eos# 07/10/2017 0.1 ? ? Baso # 07/10/2017 0.0 ? ? Sodium 07/10/2017 143 ? ? Potassium 07/10/2017 3.5 ? ? Chloride 07/10/2017 100 ? ? Total CO2 07/10/2017 31* ? ? Anion Gap 07/10/2017 12 ? ? Calcium 07/10/2017 8.8 ? ? Glucose Lvl 07/10/2017 109* ? ? BUN 07/10/2017 16 ? ? Creatinine 07/10/2017 1.41* ? ? GFR Afr Am 07/10/2017 58 ? ? GFR Non Afr Am 07/10/2017 50 ? ? Alcohol Medical 07/10/2017 <10 ? ? 6 AM (Heroin) 07/10/2017 Absent ? ? Amphetamines 07/10/2017 Absent ? ? Barbiturates 07/10/2017 Absent ? ? Benzodiazepines 07/10/2017 Absent ? ? Buprenorphine 07/10/2017 Absent ? ? Cannabinoid Metabolite 07/10/2017 Absent ? ? Cocaine Metabolite 07/10/2017 Absent ? ? Methadone and Metabolite 07/10/2017 Absent ? ? Opiate 07/10/2017 Absent ? ? Oxycodone Lvl 07/10/2017 Absent ? ? Phencyclidine 07/10/2017 Absent ? ? Creatinine Ur 07/10/2017 >25.0 ? ? WBC 07/11/2017 5.1 ? ? RBC 07/11/2017 3.61* ? ? Hgb 07/11/2017 11.3* ? ? Hct 07/11/2017 34.2* ? ? MCV 07/11/2017 94.8 ? ? MCH 07/11/2017 31.4 ? ? MCHC 07/11/2017 33.1 ? ? RDW 07/11/2017 14.8 ? ? Platelet 07/11/2017 188 ? ? MPV 07/11/2017 8.1 ? ? Neut Percent 07/11/2017 72.6 ? ? Lymph Percent 07/11/2017 16.1 ? ? [place] Percent 07/11/2017 8.0 ? ? Eos Percent 07/11/2017 2.7 ? ? Baso Percent 07/11/2017 0.6 ? ? Neut # 07/11/2017 3.7 ? ? Lymph # 07/11/2017 0.8 ? ? [place] # 07/11/2017 0.4 ? ? Eos# 07/11/2017 0.1 ? ? Baso # 07/11/2017 0.0 ? ? Vitamin B12 07/11/2017 405 ? ? Folate 07/11/2017 10.60 ? ? Sodium 07/11/2017 144 ? ? Potassium 07/11/2017 3.0* ? ? Chloride 07/11/2017 102 ? ? Total CO2 07/11/2017 31* ? ? Anion Gap 07/11/2017 11 ? ? Calcium 07/11/2017 8.5* ? ? Glucose Lvl 07/11/2017 109* ? ? BUN 07/11/2017 10 ? ? Creatinine 07/11/2017 1.12 ? ? GFR Afr Am 07/11/2017 76 ? ? GFR Non Afr Am 07/11/2017 66 Review of Systems: A comprehensive ROS was completed including: Constitutional, HEENT,Cardiovascular, Respiratory, GI, SIVAN, Musculoskeletal, Integumentary,Neurological, Psychiatric, Endocrine, Hematology/Lymphatics. All werenegative except for what was noted above in HPI. Objective: . Vitals: 07/11/17 0300 07/11/17 0400 07/11/17 0500 07/11/17 0600 BP: 161/60 154/73 (!) 114/39 163/59 Pulse: 72 69 57 74 Resp: 20 19 12 15 Temp: 98.4 ??F (36.9 ??C) TempSrc: Oral SpO2: Weight: Height: Scheduled Meds: ? ? amantadine HCl 100 mg Oral BID ? ? amLODIPine 2.5 mg Oral Daily ? ? aspirin 81 mg Oral Daily ? ? atorvastatin 10 mg Oral Daily ? ? carvedilol 25 mg Oral BID WM ? ? doxazosin 2 mg Oral Daily ? ? FLUoxetine 40 mg Oral BID ? ? fUROsemide 40 mg Oral BID ? ? memantine 5 mg Oral BID ? ? pantoprazole 40 mg Oral Daily ? ? potassium chloride 10 mEq Oral BID ? ? risperiDONE 3 mg Oral BID ? ? Saccharomyces boulardii 250 mg Oral BID ? ? senna 8.6 mg Oral Daily ? ? spironolactone 12.5 mg Oral Daily ? ? valsartan 320 mg Oral Daily Mental Status Exam: Musculoskeletal: The patient was lying in bed Gait: Not tested Behavior: Calm, not agitated Appearance:Fair Abnormal Involuntary Movement:Absent Speech: Impoverished , a little slurred Language: Impoverished Mood:Depressed and Anxious Affect:Constricted Thought Process:Illogical and Confused Thought Content:Hallucinations Chronic auditory hallucinations Perception:Hallucinations SI/HI: Vague thoughts of suicide, denies homicidal ideations Cognition/Orientation: To person and place, not to time Recent/Remote Memory: Poor Insight/Judgement:Does not understand problem Assessment: Provisional Diagnosis: [place] I: Chronic paranoid schizophrenia Major depressive disorder, recurrent, moderate Major neurocognitive disorder, mixed type, late onset, with depressedmood History of polysubstance dependence, in sustained full remission To rule out delirium [place] II: deferred [place] III: see PMH/PSH [place] IV: severe [place] V: 20 Past Medical/Surgical History: Past Medical History: Diagnosis Date ? ? KARINA (acute kidney injury) (HCC) 05/31/2016 ? ? CHF (congestive heart failure) (HCC) ? ? Depression ? ? High cholesterol ? ? Hypertension ECHO 02/2015- EF 60-65% ? ? Obesity ? ? Paranoid schizophrenia (HCC) ? ? Pneumonia ? ? Urinary incontinence Past Surgical History: Procedure Laterality Date ? ? HAND SURGERY ? ? TONSILLECTOMY Active Hospital Problems Diagnosis ? ? *Suicidal ideation ? ? Essential hypertension ? ? Morbid obesity due to excess calories (HCC) ? ? Combined systolic and diastolic congestive heart failure, NYHA class 4(HCC) ? ? Bilateral lower extremity edema ? ? Chronic major depressive disorder, recurrent episode (HCC) ? ? Morbid obesity (HCC) Plan: The patient was seen on the consultation basis. The patient has a longpsychiatric history of chronic paranoid schizophrenia, the patient hasbeen a resident of the group home. The patient stated yesterday that he tried to hang himself, as one of hisfriends was moved to a rehabilitation facility. The patient seems to be a little drowsy in the morning today, the patientis quite vague about thoughts of suicide. The patient has chronic auditoryhallucinations, but probably his hallucinations are at his baseline. The patient also seems to be quite confused, the patient was oriented toperson and place, not time. Medical records were reviewed, the patient has a history of schizophreniagoing back to the age of 25. The patient also has cognitive deficits aswell. The patient's medication regimen will be simplified, as I noticed that thepatient has been on 2 atypical antipsychotics, the patient also has beenon a very high dose of Prozac. The patient will be placed on Namenda, notsolely due to concern for his cognition, but to assist with depressivefeatures and schizophrenia. He also has been declining in terms of his functional abilities. Risperidone will be decreased to 3 mg PO twice a day, I will stop Vrylar.The patient also would benefit from smaller dose of Aricept. I would follow-up the patient, the patient has a history of schizophrenia,cognitive decline, a part of the presentation may be low-grade delirium aswell. I noticed that the patient had vitamin B12 level and folic acid obtained,will request TSH as well. Thank you very much for the consultation. Eddie Ace MD CBC WITH DIFF STAT 07/10/2017 12:35 PM EDT ALCOHOL MEDICAL STAT 07/10/2017 12:35 PM EDT BASIC METABOLIC PANEL STAT 07/10/2017 12:35 PM EDT DRUGS OF ABUSE, SCREEN ONLY, URINE STAT 07/10/2017 12:29 PM EDT documented in this encounter Results * VITAMIN B12/ FOLIC ACID (07/11/2017 5:18 AM EDT) Pathologist [facility] [place] Vitamin B12 405 211 - 946 pg/mL 07/11/2017 6:20 AM EDT [facility] Folate 10.60 4.50 - 16.00 ng/mL 07/11/2017 6:20 AM EDT [facility] Blood Venipuncture / Unknown 07/11/2017 5:18 AM EDT 07/11/2017 5:22 AM EDT us Timur Elizondo MD CHEMISTRY ORDERABLES Final R esult Performing Organization Address City/[facility]/[place] [address] * THYROID STIMULATING HORMONE (07/11/2017 5:17 AM EDT) Pathologist [facility] [place] TSH 2.240 0.270 - 4.200 mcIU/mL 07/11/2017 11:51 AM EDT [facility] Blood Venipuncture / Unknown 07/11/2017 5:17 AM EDT 07/11/2017 5:23 AM EDT us Eddie Ace MD CHEMISTRY ORDERABLES Final Resul t Performing Organization Address [facility] [place] [address] * (ABNORMAL) BASIC METABOLIC PANEL (07/11/2017 5:17 AM EDT) [facility] Sodium 144 136 - 145 mmol/L 07/11/2017 5:58 AM EDT [facility] Potassium 3.0(L) 3.5 - 5.0 mmol/L 07/11/2017 5:58 AM EDT [facility] Chloride 102 98 - 107 mmol/L 07/11/2017 5:58 AM EDT [facility] Total CO2 31(H) 22 - 29 mmol/L 07/11/2017 5:58 AM EDT [facility] Anion Gap 11 7 - 16 mmol/L 07/11/2017 5:58 AM [facility] Calcium 8.5(L) 8.8 - 10.2 mg/dL 07/11/2017 5:58 AM [facility] Glucose Lvl 109(H) 82 - 100 mg/dL 07/11/2017 5:58 AM [facility] BUN 10 8 - 23 mg/dL 07/11/2017 5:58 AM [facility] Creatinine 1.12 0.67 - 1.30 mg/dL 07/11/2017 5:58 AM [facility] GFR Afr Am 76 mL/min/1.7 3 m2 07/11/2017 5:58 AM [facility] GFR Non Afr Am 66 mL/min/1.7 3 m2 07/11/2017 5:58 AM [facility] Comment: GFR Afr Am and GFR Non Afr Am calculated using CKD-EPI equation. ?? GFR Category ?GFR(mL/min/1.73 m??) ? Kidney Function G1 ?>=90 ?Normal or high G2 ?60-89 ? Mildly decreased G3a ? 45-59 ? Mildly to moderately decreased G3b ? 30-44 ? Moderately to severely decreased G4 ?15-29 ? Severely decreased G5 ?<15 ? Kidney Failure Blood Venipuncture / Unknown 07/11/2017 5:17 AM EDT 07/11/2017 5:23 AM EDT us Timur Elizondo MD CHEMISTRY ORDERABLES Final R esult [facility] [address] [place] [address] * (ABNORMAL) CBC WITH DIFF (07/11/2017 5:17 AM EDT) WBC 5.1 4.0 - 11.0 x10(3)/mcL 07/11/2017 5:30 AM EDT [facility] RBC 3.61(L) 4.30 - 5.81 x10(6)/mcL 07/11/2017 5:30 AM EDT [facility] Hgb 11.3(L) 13.5 - 17.1 gm/dL 07/11/2017 5:30 AM EDT [facility] Hct 34.2(L) 38.9 - 51.6 % 07/11/2017 5:30 AM EDT [facility] MCV 94.8 82.5 - 99.8 fL 07/11/2017 5:30 AM EDT [facility] MCH 31.4 27.0 - 34.3 pg 07/11/2017 5:30 AM EDT [facility] MCHC 33.1 32.1 - 35.3 gm/dL 07/11/2017 5:30 AM EDT [facility] RDW 14.8 11.5 - 15.0 % 07/11/2017 5:30 AM EDT [facility] Platelet 188 144 - 423 x10(3)/mcL 07/11/2017 5:30 AM EDT [facility] MPV 8.1 6.8 - 10.8 fL 07/11/2017 5:30 AM EDT [facility] Neut Percent 72.6 % 07/11/2017 5:30 AM EDT [facility] Lymph Percent 16.1 % 07/11/2017 5:30 AM EDT [facility] [place] Percent 8.0 % 07/11/2017 5:30 AM EDT [facility] Eos Percent 2.7 % 07/11/2017 5:30 AM EDT [facility] Baso Percent 0.6 % 07/11/2017 5:30 AM EDT [facility] Neut # 3.7 1.8 - 7.7 x10(3)/[facility] 07/11/2017 5:30 AM EDT [facility] Lymph # 0.8 0.6 - 4.8 x10(3)/[facility] 07/11/2017 5:30 AM EDT [facility] [place] # 0.4 0.0 - 1.3 x10(3)/[facility] 07/11/2017 5:30 AM EDT [facility] Eos# 0.1 0.0 - 0.5 x10(3)/[facility] 07/11/2017 5:30 AM EDT [facility] Baso # 0.0 0.0 - 0.2 x10(3)/[facility] 07/11/2017 5:30 AM EDT [facility] Blood Venipuncture / Unknown 07/11/2017 5:17 AM EDT 07/11/2017 5:23 AM EDT us Timur Elizondo MD HEMATOLOGY [place] [address] * ALCOHOL MEDICAL (07/10/2017 12:35 PM EDT) [facility] Alcohol Medical <10 <=10 mg/dL 07/10/2017 12:56 PM EDT [facility] Blood VENOUS BLOOD / Unknown Venipuncture / Unknown 07/10/2017 12:35 PM EDT 07/10/2017 12:38 PM EDT us Jeb Medina MD CHEMISTRY ORDERABLES Final Result [facility] [address] [place] [address] * (ABNORMAL) BASIC METABOLIC PANEL (07/10/2017 12:35 PM EDT) Sodium 143 136 - 145 mmol/L 07/10/2017 12:56 PM EDT [facility] Potassium 3.5 3.5 - 5.0 mmol/L 07/10/2017 12:56 PM EDT [facility] Chloride 100 98 - 107 mmol/L 07/10/2017 12:56 PM EDT [facility] Total CO2 31(H) 22 - 29 mmol/L 07/10/2017 12:56 PM EDT [facility] Anion Gap 12 7 - 16 mmol/L 07/10/2017 12:56 PM EDT [facility] Calcium 8.8 8.8 - 10.2 mg/dL 07/10/2017 12:56 PM EDT [facility] Glucose Lvl 109(H) 82 - 100 mg/dL 07/10/2017 12:56 PM EDT [facility] BUN 16 8 - 23 mg/dL 07/10/2017 12:56 PM EDT [facility] Creatinine 1.41(H) 0.67 - 1.30 mg/dL 07/10/2017 12:56 PM EDT [facility] GFR Afr Am 58 mL/min/1.7 3 m2 07/10/2017 12:56 PM EDT [facility] GFR Non Afr Am 50 mL/min/1.7 3 m2 07/10/2017 12:56 PM EDT [facility] Comment: GFR Afr Am and GFR [...] VENOUS BLOOD / Unknown Venipuncture / Unknown 07/10/2017 12:35 PM EDT 07/10/2017 12:38 PM EDT us Jeb Medina MD CHEMISTRY ORDERABLES Final Result Performing Organization Address [facility]/State/[place] [address] * (ABNORMAL) CBC WITH DIFF (07/10/2017 12:35 PM EDT) WBC 5.5 4.0 - 11.0 x10(3)/mcL 07/10/2017 12:41 PM EDT [facility] RBC 3.62(L) 4.30 - 5.81 x10(6)/mcL 07/10/2017 12:41 PM EDT [facility] Hgb 11.3(L) 13.5 - 17.1 gm/dL 07/10/2017 12:41 PM EDT [facility] Hct 33.7(L) 38.9 - 51.6 % 07/10/2017 12:41 PM EDT [facility] MCV 93.0 82.5 - 99.8 fL 07/10/2017 12:41 PM EDT [facility] MCH 31.2 27.0 - 34.3 pg 07/10/2017 12:41 PM EDT [facility] MCHC 33.6 32.1 - 35.3 gm/dL 07/10/2017 12:41 PM EDT [facility] RDW 15.5(H) 11.5 - 15.0 % 07/10/2017 12:41 PM EDT [facility] Platelet 194 144 - 423 x10(3)/[facility] 07/10/2017 12:41 PM EDT [facility] MPV 7.4 6.8 - 10.8 fL 07/10/2017 12:41 PM EDT [facility] Neut Percent 79.3 % 07/10/2017 12:41 PM EDT [facility] Lymph Percent 10.8 % 07/10/2017 12:41 PM EDT [facility] [place] Percent 8.5 % 07/10/2017 12:41 PM EDT [facility] Eos Percent 1.2 % 07/10/2017 12:41 PM EDT [facility] Baso Percent 0.2 % 07/10/2017 12:41 PM EDT [facility] Neut # 4.4 1.8 - 7.7 x10(3)/[facility] 07/10/2017 12:41 PM EDT [facility] Lymph # 0.6 0.6 - 4.8 x10(3)/[facility] 07/10/2017 12:41 PM EDT [facility] [place] # 0.5 0.0 - 1.3 x10(3)/[facility] 07/10/2017 12:41 PM EDT [facility] Eos# 0.1 0.0 - 0.5 x10(3)/[facility] 07/10/2017 12:41 PM EDT [facility] Baso # 0.0 0.0 - 0.2 x10(3)/[facility] 07/10/2017 12:41 PM EDT [facility] Blood VENOUS BLOOD / Unknown Venipuncture / Unknown 07/10/2017 12:35 PM EDT 07/10/2017 12:38 PM EDT us Jeb Medina MD HEMATOLOGY ORDERABLES Final Result [facility] [address] [place] [address] * DRUGS OF ABUSE, SCREEN ONLY, URINE (07/10/2017 12:29 PM EDT) 6 AM (Heroin) Absent Absent 07/10/2017 1:15 PM EDT [facility] Amphetamines Absent Absent 07/10/2017 1:15 PM EDT [facility] Barbiturates Absent Absent 07/10/2017 1:15 PM EDT [facility] Benzodiazepines Absent Absent 8 1:15 PM EDT [facility] Buprenorphine Absent Absent 07/10/2017 1:15 PM EDT [facility] Cannabinoid Metabolite Absent Absent 07/10/2017 1:15 PM EDT [facility] Cocaine Metabolite Absent Absent 2017 1:15 PM EDT [facility] Methadone and Metabolite Absent Absent 07/10/2017 1:15 PM EDT [facility] Opiate Absent Absent 07/10/2017 1:15 PM EDT [facility] Oxycodone Lvl Absent Absent 07/10/2017 1:15 PM EDT [facility] Phencyclidine Absent Absent 07/10/2017 1:15 PM EDT [facility] Creatinine Ur >25.0 mg/dL 07/10/2017 1:15 PM EDT [facility] Comment: Greater than 20: Consistent with valid sample Greater than 2 but less than 20: Possible dilution Less than 2: Questionable valid sample Urine URINE SPECIMEN COLLECTION / Unknown 07/10/2017 12:29 PM EDT 07/10/2017 12:38 PM EDT Narrative [facility] - 07/10/2017 1:15 PM EDT These drug classes have been qualitatively screened by immunoassay and are for medical purposes only. Results reported as presumptive positive have not been confirmed. If results don? t reflect the clinical picture, the prescribed medication, or the discussion with the patient, confirmation testing is recommended on the ORIGINAL urine. All urine specimens for drug testing are held for 7 days. If confirmation testing is desired, call the [facility]. Due to possible factors, such as, dilute/adulterated urine, concentration of drug/metabolite being below the cut-off, or antibody specificity of test reagent, a negative result does not rule out drug use. These results are only valid for urine specimens. Any contamination with vaginal pool/amniotic fluid could cause erroneous results. ?? us Jeb Medina MD URINE ORDERABLES Final Resu lt [facility] [address] [place], [place] [id number] documented in this encounter Visit Diagnoses Diagnosis Suicidal ideation- Primary Depression with suicidal ideation History of paranoid schizophrenia Personal history of schizophrenia Chronic major depressive disorder, recurrent episode (HCC) Major depressive disorder, recurrent episode, unspecified Combined systolic and diastolic congestive heart failure, NYHA class 4 (HCC) Bilateral lower extremity edema Edema Morbid obesity due to excess calories (HCC) Essential hypertension Unspecified essential hypertension Chronic paranoid schizophrenia (HCC) Paranoid schizophrenia, chronic condition Major neurocognitive disorder due to another medical condition (HCC) MCI (mild cognitive impairment) Mild cognitive impairment, so stated documented in this encounter Administered Medications Inactive Administered Medications - up to 1 most recent administrations Medication Order MAR Action Action Date Dose Rate Site 0.9 % NaCl infusion Intravenous, at 10 mL/hr, CONTINUOUS PRN, Starting on Mon07/10/17 at 2306, Until Mon07/12/17 at 1415, Used as needed for secondary medication administration. Do not discontinue primary IVF., Critical Care acetaminophen (TYLENOL) suppository 650 mg 650 mg, Rectal, EVERY 4 HOURS PRN, Starting on Mon07/10/17 at 203, Until Mon07/12/17 at 1415, Fever, Headaches, Pain, Maximum adult dose of acetaminophen is 4000 mg from all sources in 24 hours. acetaminophen (TYLENOL) tablet 650 mg 650 mg, Oral, EVERY 4 HOURS PRN, Starting on Mon07/10/17 at 203, Until Mon07/12/17 at 1415, Fever, Headaches, Pain, Maximum adult dose of acetaminophen is 4000 mg from all sources in 24 hours. amantadine HCl (SYMMETREL) capsule 100 mg 100 mg, Oral, 2 TIMES DAILY, First dose on Mon07/11/17 at 0900, Until Discontinued Given 07/12/2017 9:29 AM EDT 100 mg amLODIPine (NORVASC) tablet 10 mg 10 mg, Oral, DAILY, First dose (after last modification) on Mon07/12/17 at 0900, Until Discontinued Given 07/12/2017 9:27 AM EDT 10 mg aspirin chewable tablet 81 mg 81 mg, Oral, DAILY, First dose on Mon07/11/17 at 0900, Until Discontinued Given 07/12/2017 9:24 AM EDT 81 mg atorvastatin (LIPITOR) tablet 10 mg 10 mg, Oral, DAILY, First dose on Mon07/10/17 at 1900, Until Discontinued Given 07/12/2017 9:22 AM EDT 10 mg carvedilol (COREG) tablet 25 mg 25 mg, Oral, 2 TIMES DAILY WITH MEALS, First dose on Mon07/11/17 at 0800, Until Discontinued Given 07/12/2017 9:27 AM EDT 25 mg dextrose 50 % solution 25 mL 25 mL, Intravenous, PRN, Starting on Mon07/10/17 at 2306, Until Mon07/12/17 at 1415, Low blood sugar, If FSBS less than 70 mg/dl and patient cannot take orally, Check FSBS every 30 minutes and repeat 25 mL of D50 IV push and notify physician if FSBS less than 70 mg/dL VESICANT , Critical Care doxazosin (CARDURA) tablet 2 mg 2 mg, Oral, DAILY, First dose on Mon07/11/17 at 0900, Until Discontinued Given 07/12/2017 9:26 AM EDT 2 mg FLUoxetine (PROzac) capsule 40 mg 40 mg, Oral, 2 TIMES DAILY, First dose on Mon07/10/17 at 2115, Until Discontinued Given 07/12/2017 9:28 AM EDT 40 mg fUROsemide (LASix) tablet 40 mg 40 mg, Oral, 2 TIMES DAILY, First dose on Mon07/11/17 at 0900, Until Discontinued Given 07/12/2017 9:26 AM EDT 40 mg glucagon (human recombinant) (GLUCAGEN) injection 1 mg 1 mg, Intramuscular, PRN, Starting on Mon07/10/17 at 2306, Until Mon07/12/17 at 1415, Low blood sugar, If FSBS less than 70 mg/dl, patient cannot take orally and without IV access, If patient is without IV access, give Glucagon 1 mg Intramuscularly, insert IV and call physician., Critical Care ICU Electrolyte Replacement - Calcium 1 Each, MISCELLANEOUS, PRN, Starting on Mon07/10/17 at 2306, Until Mon07/12/17 at 1415, Hypocalcemia, Reference Range for Ionized Calcium 1.12 - 1.32 mmol/dL - If ionized calcium less than (<) 1.12 mmol/dL, refer to Electrolyte Protocol link for replacement orders. - Recheck serum ionized calcium at least 6 hours after being replaced or with next labs as if concentration greater than 0.9 mmol/dL prior to replacement. - DO NOT GIVE calcium if phosphorus is greater than 6 mg/dL. - Check ionized calcium if serum calcium is less than 8 mg/dL. - If ionized calcium is below 1 mmol/dL, check serum magnesium. - If calcium remains low after replacement, consider checking Vit D 25-hydroxy concentration. - Calcium should not be infused in the same IV catheter as phosphate. - Discontinue this order when patient is transferred out of ICU., Critical Care ICU Electrolyte Replacement - Magnesium 1 Each, MISCELLANEOUS, PRN, Starting on Mon07/10/17 at 2306, Until Mon07/12/17 at 1415, Hypomagnesemia, Reference Range 1.6 - 2.4 mg/dL - If magnesium less than (<) 1.6 mg/dL, refer to Electrolyte Protocol link for replacement orders. - Recheck serum magnesium concentration at least 6 hours after being replaced or with next labs as long as concentration greater than 1 mg/dL prior to replacement. - Discontinue this order when patient is transferred out of ICU., Critical Care ICU Electrolyte Replacement - Phosphate 1 Each, MISCELLANEOUS, PRN, Starting on Mon07/10/17 at 2306, Until Mon07/12/17 at 1415, Hypophosphatemia, Reference Range 2.5 - 4.5 mg/dL - If phosphorus less than (<) 2.6 mg/dL, refer to Electrolyte Protocol link for replacement orders. - Recheck serum phosphorus concentration 6 hours after infusion or 6 hours after the last dose of oral phosphorus is given. - Use with caution in patients with hypocalcemia. - Discontinue this order when patient is transferred out of ICU., Critical Care ICU Electrolyte Replacement - Potassium 1 Each, MISCELLANEOUS, PRN, Starting on Mon07/10/17 at 2306, Until Mon07/12/17 at 1415, Hypokalemia, Reference Range 3.5 - 5 mmol/dL - If potassium less than (<) 3.5 mmol/dL, refer to Electrolyte Protocol link for replacement orders. - Recheck serum potassium concentration at least 2 hours after replaced or with next labs as long as concentration greater than 3 mmol/dL prior to replacement. - If pain or phlebitis occur with parenteral infusion, reduce rate by half. - Check ionized calcium and magnesium if hypokalemia persists despite adequate supplementation. - Discontinue this order when patient is transferred out of ICU., Critical Care memantine (NAMENDA) tablet 5 mg 5 mg, Oral, 2 TIMES DAILY, First dose on Mon07/10/17 at 2115, Until Discontinued Given 07/12/2017 9:28 AM EDT 5 mg nitroGLYCERIN (NITROSTAT) SL tablet 0.4 mg 0.4 mg, Sublingual, EVERY 5 MIN PRN, Starting on Mon07/10/17 at 2306, Until Mon07/12/17 at 1415, Chest pain, May give up to three (3) doses. Call MD after 3rd dose Administer for angina/chest pain prior to administration of analgesics for angina., Critical Care OLANZapine (ZyPREXA ZYDIS) disintegrating tablet 5-10 mg 5-10 mg, Oral, EVERY 2 HOURS PRN, Starting on Mon07/10/17 at 2036, Until Mon07/12/17 at 1424, Agitation, Severe Agitation, Begin with lowest dose unless otherwise directed. PO route preferred to IM, unless PO route unavailable. OLANZapine (ZyPREXA) 5-10 mg in sterile water 1.05-2.1 mL injection 5-10 mg, Intramuscular, EVERY 2 HOURS PRN, Starting on Mon07/10/17 at 2036, Until Mon07/12/17 at 1424, Agitation, Severe Agitation, Begin with lowest dose unless otherwise directed. PO route preferred to IM, unless PO route unavailable. ondansetron (ZOFRAN) injection 4 mg 4 mg, Intravenous, EVERY 6 HOURS PRN, Starting on Mon07/10/17 at 2036, Until Mon07/12/17 at 1415, Nausea ondansetron (ZOFRAN) tablet 4 mg 4 mg, Oral, EVERY 6 HOURS PRN, Starting on Mon07/10/17 at 2036, Until Mon07/12/17 at 1415, Nausea pantoprazole (PROTONIX) tablet 40 mg 40 mg, Oral, DAILY, First dose on Mon07/11/17 at 0900, Until Discontinued, Do not crush or chew Given 07/12/2017 9:25 AM EDT 40 mg potassium chloride (K-DUR) tablet 10 mEq 10 mEq, Oral, 2 TIMES DAILY, First dose on Mon07/10/17 at 2100, Until Discontinued Given 07/12/2017 9:23 AM EDT 10 mEq potassium chloride (K-DUR) tablet 30 mEq 30 mEq, Oral, ONCE, 1 dose, On Mon07/11/17 at 1215, Per ICU electrolyte replacement protocol for K 3 Given 07/11/2017 1:31 PM EDT 30 mEq risperiDONE (RisperDAL) tablet 3 mg 3 mg, Oral, 2 TIMES DAILY, First dose (after last modification) on Mon07/11/17 at 0915, Until Discontinued Given 07/12/2017 9:23 AM EDT 3 mg Saccharomyces boulardii (FLORASTOR) capsule 250 mg 250 mg, Oral, 2 TIMES DAILY, First dose on Mon07/10/17 at 2100, Until Discontinued Given 07/12/2017 9:25 AM EDT 250 mg senna (SENOKOT) tablet 8.6 mg 8.6 mg, Oral, DAILY, First dose on Mon07/11/17 at 0900, Until Discontinued Given 07/12/2017 9:25 AM EDT 8.6 mg documented in this encounter Discontinued Medications Medication Sig Discontinue Reason Start Date End Da te terazosin (HYTRIN) 2 mg capsule Take 2 mg by mouth nightly. Stop Taking at Discharge 07/10/2017 simvastatin (ZOCOR) 10 mg Take 10 mg by mouth nightly. Stop Taking at Discharge 07/10/2017 valsartan (DIOVAN) 320 mg tablet Take 320 mg by mouth daily. Stop Taking at Discharge 07/12/2017 spironolactone (ALDACTONE) 25 mg Oral Tablet Take 0.5 Tabs by mouth daily. Stop Taking at Discharge 04/23/2015 07/12/2017 documented as of this encounter Active and Recently Administered Medications Times are shown in EDT. Scheduled Medication Order 07/10/2017 07/11/2017 07/12/2017 amantadine HCl (SYMMETREL) capsule 100 mg 100 mg, Oral, 2 TIMES DAILY, First dose on Mon07/11/17 at 0900, Until Discontinued 112 (Given - Provider: Veronica Calloway RN)2101 (Given - Provider: Camelia Elaine, TAMICA) 928 (Given - Provider: Marsha Frazier RN) amLODIPine (NORVASC) tablet 10 mg 10 mg, Oral, DAILY, First dose (after last modification) on Mon07/12/17 at 0900, Until Discontinued 926 (Given - Provider: Marsha Frazier RN) aspirin chewable tablet 81 mg 81 mg, Oral, DAILY, First dose on Mon07/11/17 at 0900, Until Discontinued 1127 (Given - Provider: Veronica Calloway RN) 923 (Given - Provider: Marsha Frazier RN) atorvastatin (LIPITOR) tablet 10 mg 10 mg, Oral, DAILY, First dose on Mon07/10/17 at 1900, Until Discontinued 190 (Due) 09 (Hold - Provider: Court Sánchez RN - Reason: Other - Comment: not verified yet) 921 (Given - Provider: Marsha Frazier RN) carvedilol (COREG) tablet 25 mg 25 mg, Oral, 2 TIMES DAILY WITH MEALS, First dose on Mon07/11/17 at 0800, Until Discontinued 112 (Given - Provider: Veronica Calloway RN)1726 (Given - Provider: Court Sánchez RN) 926 (Given - Provider: Marsha Frazier RN) doxazosin (CARDURA) tablet 2 mg 2 mg, Oral, DAILY, First dose on Mon07/11/17 at 0900, Until Discontinued 1127 (Given - Provider: Veronica Calloway RN) 09 (Given - Provider: Marsha Frazier RN) FLUoxetine (PROzac) capsule 40 mg 40 mg, Oral, 2 TIMES DAILY, First dose on Mon07/10/17 at 2114, Until Discontinued 2114 (Not Given - Provider: Camelia Elaine RN - Reason: Other) 1132 (Given - Provider: Veronica Calloway RN)2101 (Given - Provider: Camelia lEaine RN) 927 (Given - Provider: Marsha Frazier RN) fUROsemide (LASix) tablet 40 mg 40 mg, Oral, 2 TIMES DAILY, First dose on Mon07/11/17 at 0900, Until Discontinued 112 (Given - Provider: Veronica Calloway RN)2101 (Given - Provider: Camelia Elaine RN) 925 (Given - Provider: Marsha Frazier RN) memantine (NAMENDA) tablet 5 mg 5 mg, Oral, 2 TIMES DAILY, First dose on Mon07/10/17 at 2114, Until Discontinued 2114 (Not Given - Provider: Camelia Elaine RN - Reason: Other) 112 (Given - Provider: Veronica Calloway RN)2101 (Given - Provider: Camelia Elaine RN) 927 (Given - Provider: Marsha Frazier RN) pantoprazole (PROTONIX) tablet 40 mg 40 mg, Oral, DAILY, First dose on Mon07/11/17 at 0900, Until Discontinued, Do not crush or chew 1133 (Given - Provider: Veronica Calloway RN) 09 (Given - Provider: Marsha Frazier RN) potassium chloride (K-DUR) tablet 10 mEq 10 mEq, Oral, 2 TIMES DAILY, First dose on Mon07/10/17 at 2100, Until Discontinued 2100 (Not Given - Provider: Camelia Elaine RN - Reason: Other) 0900 (Hold - Provider: Court Sánchez RN - Reason: Other - Comment: not verified yet)1727 (Given - Provider: Court Sánchez RN) 0923 (Given - Provider: Marsha Frazier RN) potassium chloride (K-DUR) tablet 30 mEq (COMPLETED) 30 mEq, Oral, ONCE, 1 dose, On Mon07/11/17 at 1215, Per ICU electrolyte replacement protocol for K 3 1331 (Given - Provider: Veronica Calloway RN) risperiDONE (RisperDAL) tablet 3 mg 3 mg, Oral, 2 TIMES DAILY, First dose (after last modification) on Mon07/11/17 at 0915, Until Discontinued 1133 (Given - Provider: Veronica Calloway RN)2101 (Given - Provider: Camelia Elaine RN) 922 (Given - Provider: Marsha Frazier, TAMICA) Saccharomyces boulardii (FLORASTOR) capsule 250 mg 250 mg, Oral, 2 TIMES DAILY, First dose on Mon07/10/17 at 2100, Until Discontinued 2100 (Not Given - Provider: Camelia Elaine RN - Reason: Other) 112 (Given - Provider: Veronica Calloway RN)2101 (Given - Provider: Camelia Elaine RN) 924 (Given - Provider: Marsha Frazier RN) senna (SENOKOT) tablet 8.6 mg 8.6 mg, Oral, DAILY, First dose on Mon07/11/17 at 0900, Until Discontinued 1127 (Given - Provider: Veronica Calloway RN) 924 (Given - Provider: Marsha Frazier RN) PRN Medication Order 07/10/2017 07/11/2017 07/12/2017 0.9 % NaCl infusion Intravenous, at 10 mL/hr, CONTINUOUS PRN, Starting on Mon07/10/17 at 2306, Until Mon07/12/17 at 1415, Used as needed for secondary medication administration. Do not discontinue primary IVF., Critical Care acetaminophen (TYLENOL) suppository 650 mg(Linked Group 1) 650 mg, Rectal, EVERY 4 HOURS PRN, Starting on Mon07/10/17 at 2036, Until Mon07/12/17 at 1415, Fever, Headaches, Pain, Maximum adult dose of acetaminophen is 4000 mg from all sources in 24 hours. acetaminophen (TYLENOL) tablet 650 mg(Linked Group 1) 650 mg, Oral, EVERY 4 HOURS PRN, Starting on Mon07/10/17 at 2036, Until Mon07/12/17 at 1415, Fever, Headaches, Pain, Maximum adult dose of acetaminophen is 4000 mg from all sources in 24 hours. acetaminophen (TYLENOL) tablet 650 mg 650 mg, Oral, EVERY 4 HOURS PRN, Starting on Mon07/10/17 at 1847, Until Mon07/12/17 at 1415, Pain, 2 tabs for elevated temp/discomfort, Maximum adult dose of acetaminophen is 4000 mg from all sources in 24 hours. dextrose 50 % solution 25 mL 25 mL, Intravenous, PRN, Starting on Mon07/10/17 at 2306, Until Mon07/12/17 at 1415, Low blood sugar, If FSBS less than 70 mg/dl and patient cannot take orally, Check FSBS every 30 minutes and repeat 25 mL of D50 IV push and notify physician if FSBS less than 70 mg/dL VESICANT , Critical Care glucagon (human recombinant) (GLUCAGEN) injection 1 mg 1 mg, Intramuscular, PRN, Starting on Mon07/10/17 at 2306, Until Mon07/12/17 at 1415, Low blood sugar, If FSBS less than 70 mg/dl, patient cannot take orally and without IV access, If patient is without IV access, give Glucagon 1 mg Intramuscularly, insert IV and call physician., Critical Care guaiFENesin-dextromethorphan (ROBITUSSIN DM) 10-100 mg/5 mL syrup 10 mL 10 mL, Oral, EVERY 4 HOURS PRN, Starting on Mon07/10/17 at 1849, Until Mon07/12/17 at 1415, Cough ICU Electrolyte Replacement - Calcium 1 Each, MISCELLANEOUS, PRN, Starting on Mon07/10/17 at 2306, Until Mon07/12/17 at 1415, Hypocalcemia, Reference Range for Ionized Calcium 1.12 - 1.32 mmol/dL - If ionized calcium less than (<) 1.12 mmol/dL, refer to Electrolyte Protocol link for replacement orders. - Recheck serum ionized calcium at least 6 hours after being replaced or with next labs as if concentration greater than 0.9 mmol/dL prior to replacement. - DO NOT GIVE calcium if phosphorus is greater than 6 mg/dL. - Check ionized calcium if serum calcium is less than 8 mg/dL. - If ionized calcium is below 1 mmol/dL, check serum magnesium. - If calcium remains low after replacement, consider checking Vit D 25-hydroxy concentration. - Calcium should not be infused in the same IV catheter as phosphate. - Discontinue this order when patient is transferred out of ICU., Critical Care ICU Electrolyte Replacement - Magnesium 1 Each, MISCELLANEOUS, PRN, Starting on Mon07/10/17 at 2306, Until Mon07/12/17 at 1415, Hypomagnesemia, Reference Range 1.6 - 2.4 mg/dL - If magnesium less than (<) 1.6 mg/dL, refer to Electrolyte Protocol link for replacement orders. - Recheck serum magnesium concentration at least 6 hours after being replaced or with next labs as long as concentration greater than 1 mg/dL prior to replacement. - Discontinue this order when patient is transferred out of ICU., Critical Care ICU Electrolyte Replacement - Phosphate 1 Each, MISCELLANEOUS, PRN, Starting on Mon07/10/17 at 2306, Until Mon07/12/17 at 1415, Hypophosphatemia, Reference Range 2.5 - 4.5 mg/dL - If phosphorus less than (<) 2.6 mg/dL, refer to Electrolyte Protocol link for replacement orders. - Recheck serum phosphorus concentration 6 hours after infusion or 6 hours after the last dose of oral phosphorus is given. - Use with caution in patients with hypocalcemia. - Discontinue this order when patient is transferred out of ICU., Critical Care ICU Electrolyte Replacement - Potassium 1 Each, MISCELLANEOUS, PRN, Starting on Mon07/10/17 at 2306, Until Mon07/12/17 at 1415, Hypokalemia, Reference Range 3.5 - 5 mmol/dL - If potassium less than (<) 3.5 mmol/dL, refer to Electrolyte Protocol link for replacement orders. - Recheck serum potassium concentration at least 2 hours after replaced or with next labs as long as concentration greater than 3 mmol/dL prior to replacement. - If pain or phlebitis occur with parenteral infusion, reduce rate by half. - Check ionized calcium and magnesium if hypokalemia persists despite adequate supplementation. - Discontinue this order when patient is transferred out of ICU., Critical Care nitroGLYCERIN (NITROSTAT) SL tablet 0.4 mg 0.4 mg, Sublingual, EVERY 5 MIN PRN, Starting on Mon07/10/17 at 2306, Until Mon07/12/17 at 1415, Chest pain, May give up to three (3) doses. Call MD after 3rd dose Administer for angina/chest pain prior to administration of analgesics for angina., Critical Care ondansetron (ZOFRAN) injection 4 mg(Linked Group 2) 4 mg, Intravenous, EVERY 6 HOURS PRN, Starting on Mon07/10/17 at 2035, Until Mon07/12/17 at 1415, Nausea ondansetron (ZOFRAN) tablet 4 mg(Linked Group 2) 4 mg, Oral, EVERY 6 HOURS PRN, Starting on Mon07/10/17 at 2035, Until Mon07/12/17 at 1415, Nausea Linked Groups Order Group 1: acetaminophen (TYLENOL) tablet 650 mgJump to med 650 mg, Oral, EVERY 4 HOURS PRN, Starting on Mon07/10/17 at 2035, Until Mon07/12/17 at 1415, Fever, Headaches, Pain, Maximum adult dose of acetaminophen is 4000 mg from all sources in 24 hours. Or acetaminophen (TYLENOL) suppository 650 mgJump to med 650 mg, Rectal, EVERY 4 HOURS PRN, Starting on Mon07/10/17 at 2035, Until Mon07/12/17 at 1415, Fever, Headaches, Pain, Maximum adult dose of acetaminophen is 4000 mg from all sources in 24 hours. Group 2: ondansetron (ZOFRAN) tablet 4 mgJump to med 4 mg, Oral, EVERY 6 HOURS PRN, Starting on Mon07/10/17 at 2035, Until Mon07/12/17 at 1415, Nausea Or ondansetron (ZOFRAN) injection 4 mgJump to med 4 mg, Intravenous, EVERY 6 HOURS PRN, Starting on Mon07/10/17 at 2035, Until Mon07/12/17 at 1415, Nausea documented in this encounter Orders Medications Ordered That Cb ht Not Have Been Administered Count Last Ordered Date First Ordered Date 0.9 % NaCl infusion 1 07/10/2017 acetaminophen (TYLENOL) suppository 650 mg 1 07/10/2017 acetaminophen (TYLENOL) tablet 650 mg 2 05/2017 amLODIPine (NORVASC) tablet 2.5 mg 1 2017 dextrose 50 % solution 25 mL 1 07/10/2017 Donepezil (ARICEPT) Tab 23 mg 1 07/10/2017 glucagon (human recombinant) (GLUCAGEN) injection 1 mg 1 07/10/2017 guaiFENesin-dextromethorphan (ROBITUSSIN DM) 10-100 mg/5 mL syrup 10 mL 1 07/10/2017 ICU Electrolyte Replacement - Calcium 1 05/2017 ICU Electrolyte Replacement - Magnesium 1 0 07/10/2017 ICU Electrolyte Replacement - Phosphate 1 0 07/10/2017 ICU Electrolyte Replacement - Potassium 1 0 07/10/2017 nitroGLYCERIN (NITROSTAT) SL tablet 0.4 mg 1 07/10/2017 OLANZapine (ZyPREXA ZYDIS) d isintegrating tablet 5-10 mg 1 07/10/2017 OLANZapine (ZyPREXA) 5-10 mg in sterile water 1.05-2.1 mL injection 1 07/10/2017 ondansetron (ZOFRAN) injection 4 mg 1 07/10 ondansetron (ZOFRAN) tablet 4 mg 1 07/11/19 18 risperiDONE (RisperDAL) tablet 4 mg 1 07/10 spironolactone (ALDACTONE) tablet 12.5 mg 1 07/10/2017 valsartan (DIOVAN) tablet 320 mg 1 07/11/19 18 Nursing Count Last Ordered Date First Orde red Date ADMISSION 1 07/10/2017 Consult Count Last Ordered Date First Orde red Date IP CONSULT TO NUTRITION 1 07/10/2017 IP CONSULT TO PSYCHIATRY 1 07/10/2017 Behavioral Health Services Count Last Ordered D ate First Ordered Date ED CONSULT FOR MENTAL HEALTH ASSESSMENT 1 0 07/10/2017 Transfer Count Last Ordered Date First Orde red Date BED REQUEST 1 07/10/2017 documented in this encounter Care Teams Pallet Rectifier Relationship Specialty Start Date End Date Kevin Leong Sr., MD [address] [place] [id number] PCP - General Clean Up Helper Banquet 10/29/13 documented as of this encounter
--- OUTSIDE RECORDS SUMMARY | 2024-02-27 10:43 | XMS_ITS | Encounter Summary ---
Author Organization Healthcare Address [address] [id number] Care Team Providers Care Safety Instructor Name Role Phone Jeb Gonzalez MD Primary Care Provider + [phone] Reason for Visit * Reason Comments Follow-up Encounter Details Date Type Department Care Team ([facility] st Contact Info) Description 10/06/2020 11:20 AM EDT Office Visit [facility] Multidisciplinary Oncology Clinic [address] [place] [address] Dom White MD [address] [facility] [address] [place] [address] Neuroendocrine tumor (Primary Dx); Pancreatic mass Social History Tobacco Use Types Packs/Day Years [...] AM EDT documented as of this encounter Last Filed Vital Signs Vital Sign Reading Time Taken Comments Blood Pressure 190/73 10/06/2020 12:25 PM EDT Pulse 52 10/06/2020 12:25 PM EDT Temperature 36.8 ??C (98.3 ??F) 10/06/2020 12:25 PM E DT Respiratory Rate 16 10/06/2020 12:25 PM EDT Oxygen Saturation 97% 10/06/2020 12:25 PM EDT Inhaled Oxygen Concentration - - Weight 131 kg (288 lb 2.3 oz) 10/06/2020 12:25 P M EDT Height - - Body Mass Index - - documented in this encounter Miscellaneous Notes * Progress Notes - Dom White MD - 10/06/2020 11:20 AM EDT Patient ID: Renan Goncalves is a 75 y.o. male. 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 Subjective History of Present Illness: HPI Mr. Renan Goncalves is a 75 yo male referred to Dr. White from Dr. Anna Palacios for second opinion. He presented with heartburn and upper abd discomfort, CT demonstrated a 5.8cm solid mass at the junction of the body and tail of pancreas, not amendable to biopsy, there were also noted few small retrop eritoneal lymph nodes. He reported 100lb weight loss over the past couple of years. Referred to for biopsy via EUS, path showed pancreatic neuroendocrine tumor, well differentiated, grade 1. Fall 01/17/18, eval at . PMH: HTN SH: never smoker, resides at [facility], schizophrenia and dementia- per nursing facility, patienthas been recently evaluated regarding competency by the state and makes his own decisions. Imaging: - CT head 10/06/17: no acute intracranial findings. - CT abd/pelvis with IVC 10/16/17: 5.8cm solid-appearing pancreatic mass involving the junction of the body and tail of the pancreas consistent with pancreatic neoplasm. Thickened urinary bladder wall with mild stranding of the adjacent fat suggesting cystitis. ? Interval History: ?? Mr. Goncalves [facility] clinic [facility]. He is poor historian, but not confused. He is oriented x3. He reports having diarrhea but unable to state how many times a day. He reports occasional abd pain. He reports good appetite. His forensic sergeant states he falls a lot , that he walks really fast and trips over his walker . He has bilateral periorbital ecchymotic areas currently. He states he is not diabetic. ?? Review of Systems - Oncology The following portions of the chart were reviewed this encounter and updated as appropriate: Objective Physical Exam: Vital Signs for this encounter: BSA: There is no height or weight on file to calculate BSA. Visit Vitals BP (!) 190/73 (BP Location: Left arm) Pulse 52 Temp 36.8 ??C (98.3 ??F) Resp 16 Wt 131 kg (288 lb 2.3 oz) SpO2 97% Smoking Status Former Smoker Physical Exam Performance Status: Symptomatic; in bed >50% of the day General Appearance: Disshelved, over wt WM in W/C and no acute distress Skin: Skin warm and dry, no rash Neck and Thyroid: Neck supple, no thyromegaly, no masses Ears, Nose, Mouth and Throat: External Nose: no mass or deformity, External Ears: no mass or deformity Respiratory: Normal respiratory effort, clear to auscultation Cardiovascular: Regular sinus rhythm Gastrointestinal: distended,, non tender, no hepatomegaly, no splenomegaly and no palpable mass Lymphatics: No abnormal adenopathy in neck or supraclavicular areas Psychiatric: mood is depressed Results: documented in this encounter Plan of Treatment Upcoming Encounters Date Type Department Care Team (Late st Contact Info) Description 02/28/2024 10:40 AM EST Hospital Encounter [facility] [address] [place] [address] John Vargas MD [address] [phone] 02/28/2024 10:40 AM EST Anesthesia Event [facility] [address] [place] [address] Fransico Mcgarry MD [address] [place] [address] 02/28/2024 10:40 AM EST - 02/28/2024 1:05 PM EST Surgery [facility] [address] [place] [phone] John Vargas MD [address] [place] [address] URETEROSCOPY, WITH LASER LITHOTRIPSY [[id number] (CPT??)] 05/16/2024 3:45 PM EST Office Visit Medical Office Building Urology [address] [facility], [address] [place] [address] Mark Moore MD [address] [place] [address] Scheduled Procedures Name Priority Associated Diagnoses Date/Ti me URETEROSCOPY, WITH LASER LITHOTRIPSY Ureteral stone 02/28/2024 10:40 AM EST documented as of this encounter Visit Diagnoses Diagnosis Neuroendocrine tumor- Primary 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
--- OUTSIDE RECORDS SUMMARY | 2024-02-27 10:43 | XMS_ITS | Encounter Summary ---
Author Organization Healthcare Address [address] [place] [address] Care Team Providers Care Boiler Reliner Name Role Phone Jeb Gonzalez MD Primary Care Provider [phone] Encounter Details Date Type Department Care Team (Latest Contact Info) Description 11/07/2023 Travel Social History Tobacco Use Types Packs/Day [...] Hospital Encounter [facility] [address] [place] [id number] John Vargas MD [address] [place] [phone] 02/28/2024 10:40 AM EST Anesthesia Event [facility] [address] [place] [phone] Fransico Mcgarry MD [address] [place] [address] 02/28/2024 10:40 AM EST - 02/28/2024 1:05 PM EST Surgery [facility] [address] [place] [phone] John Vargas MD [address] [address] URETEROSCOPY, WITH LASER LITHOTRIPSY [[id number] (CPT??)] 05/16/2024 3:45 PM EST Office Visit Medical Office Building Urology [address] [facility], [address] [place] [address] Mark Moore MD [address] [place] [address] Scheduled Procedures Name Priority Associated [...] documented as of this encounter Care Teams Boiler Reliner Relationship Specialty Start Date End Date Jeb Gonzalez MD [address] [place] [address] PCP - General 10/06/20 documented as of this encounter
--- OUTSIDE RECORDS SUMMARY | 2024-02-27 10:43 | XMS_ITS | Encounter Summary ---
Author Organization Healthcare Address [address] [place] [address] Care Team Providers Care Latex Foam Worker Name Role Phone Jeb Gonzalez MD Primary Care Provider [phone] Encounter Details Date Type Department Care Team (Late Contact Info) Description 11/07/2023 Orders Only External Location [address] [place] [address] Provider, External Social History Tobacco Use Types [...] Encounters Date Type Department Care Team (Late Contact Info) Description 02/28/2024 10:40 AM EST Hospital Encounter [facility] [address] [place] [phone] John Vargas MD [address] [phone] 02/28/2024 10:40 AM EST Anesthesia Event [facility] [address] [place] [phone] Fransico Mcgarry MD [address] [place] [address] 02/28/2024 10:40 AM EST - 02/28/2024 1:05 PM EST Surgery [facility] [address] [place] [phone] John Vargas MD [address] [address] URETEROSCOPY, WITH LASER LITHOTRIPSY [[id number] (CPT??)] 05/16/2024 3:45 PM EST Office Visit Medical Office Building Urology [address] [facility], [address] [place] [address] Mark Moore MD [address] [place] [address] Scheduled Procedures Name Priority Associated Diagnoses Date/Ti me URETEROSCOPY, WITH LASER LITHOTRIPSY Ureteral stone 02/28/2024 10:40 AM EST documented as of this encounter Procedures Procedure Name Priority Date/Time Associated Diagnosis Comments CT [facility] OUTSIDE IMAGES 11/07/2023 12:36 PM EDT documented in this encounter Results * CT MSK OUTSIDE IMAGES (11/07/2023 12:36 PM EDT) Anatomical Region Laterality Modality Computed Tomogra phy 11/07/2023 12:3 6 PM EDT us External Provider IMG CT [...] documented as of this encounter Care Teams Latex Foam Worker Relationship Specialty Start Date End Date Jeb Gonzalez MD [address] [place] [address] PCP - General 10/06/20 documented as of this encounter
--- OUTSIDE RECORDS SUMMARY | 2024-02-27 10:43 | XMS_ITS | Encounter Summary ---
Author Organization [place] [address] Care Team Providers Care Light Air Defense Artillery Crewmember Name Role Phone Salo Segovia MD, [facility] Primary Care [facility] Reason for Visit * Reason Onset Date Comments Other 12/14/2017 Reason for call: Wanting to inform staff of patients diagnosis Encounter Details Date Type Department Care Team (Late st Contact Info) Description 12/14/2017 Telephone Cancer Care Medical Oncology [address] [facility] [address] [place] [address] Anna Palacios MD [address] [phone] Other (Reason for call: Wanting to inform staff of patients diagnosis ) Social History Tobacco Use Types Packs/Day Years [...] encounter Miscellaneous Notes * Telephone Encounter - Jade Rodriguez RN - 12/14/2017 1:12 PM EDT I spoke to Dr. Booth today who is a gastro MD with . He is calling to get a update on patient . Hestates he spoke with Dr. Palacios a few weeks ago to notify her this patient upon scope procedure pathology showed a neuroendocrine tumor and he wants to make sure the patient is being seen and followed by oncologist. I informed MD that I do not see record of patient being seen by Dr. Palacios with [facility] but that he may be seen by Dr. Palacios at [facility] and I would pass the message along to her to follow up with him. Dr. Booth can be reached by calling [facility] line at [phone]. * Telephone Encounter - Nithya Kathleen, Clerical Staff - 12/14/2017 1:08 PM EDT Patient's name: Renan Goncalves Patient's : 1945 Caller name and relationship to the patient: nurse Callum Callback number: [phone] to transfer to [facility] Reason for call: Wanting to inform staff of patients diagnosis Primary Oncologist: natanael documented in this encounter Plan of Treatment Not on file documented as of this encounter Visit Diagnoses Not on filedocumented in this encounter Care Teams [employer] Crewmember Relationship Specialty Start Date End Date Kevin Leong Sr., MD [address] [place] [phone] PCP - General Photo Mask Inspector 10/29/13 documented as of this encounter
--- OUTSIDE RECORDS SUMMARY | 2024-02-27 10:43 | XMS_ITS | Clinical Summary ---
Author Organization [facility] Address [address] [place] [address] Phone Care Team Providers Care Paralegal Supervisor Name Role Phone Salo Segovia MD, Kevin aDrrick Primary Care Provid er Allergies No known [...] mouth daily. 30 Tab 8 Active Balsam [place] Oil (VENELEX) 87-788 mg/gram Top Ointment Apply 1 Dose topically 2 times daily. 1 Tube 8 Active Balsam [place] Oil (VENELEX) 87-788 mg/gram Top Ointment Apply [...] Active Problems Problem Noted Date Diagnosed Date long term resident 12/28/2023 Mood insomnia 09/28/2023 Mood disorder [...] Valent 017 Td (adult), preservative free 10/29/2013 Surgical History Surgery Date Site/Laterality Comments HAND SURGERY TONSILLECTOMY Medical History Medical History Date Comments Hypertension ECHO 02/2015- EF 60-65% Paranoid schizophrenia ([facility]) High cholesterol CHF (congestive heart failure) ([facility]) Pneumonia Obesity Depression KARINA (acute kidney injury) ([facility]) 05/31/2016 Urinary incontinence 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 ([facility]) 07/11/2017 Family History Medical History Relation Name Comments Heart Disease Father Cancer Mother Relation Name Status Comments Father Mother Social History Tobacco Use Types Packs/Day Years Used Date Smoking Tobacco: Never Smokeless Tobacco: Never Alcohol Use Standard Drinks/Week Comments No 0 (1 standard drink = 0.6 oz pur e alcohol) Sex and Gender Information Value Date Recorded Sex Assigned at Not on file Legal Sex Male 7:45 PM EDT Gender Identity Not on file Sexual Orientation Not on file Obstetrics History Last Filed Vital Signs Vital Sign Reading [...] 07/31/2017 3:45 PM EDT Plan of Treatment Health Maintenance Due Date Last Done Comments Wellness Exam Medicare 1947 Hepatitis C Screening 1963 Zoster (1 of 2) 1996 DTaP/TDaP/Td (1 - Tdap) 10/30/2013 10/29/2013 Pneumococcal Vaccine 65+ (2 of 2 - PPSV23 or PCV20) 07/27/2016 06/01/2016 RSV or 60+ (1 - 1-dose 75+ series) 2021 COVID-19 Vaccine (1 - 2023-2 5 season) 2023 Influenza Vaccine (#1) 2023 , 01/27/2015 Colon Cancer Screening Discontinued FIT Discontinued 06/02/2016 Cologuard Discontinued Colonoscopy Discontinued Hepatitis B Vaccine Aged Out No longe r eligible based on patient's age to complete this topic Sigmoidoscopy Discontinued Virtual Colonography Discontinued Procedures Procedure Name Priority Date/Time Associated Diagnosis Comments FECAL HEME (FIT) CANCER SCREEN Routine 06/02/2016 12:00 PM EST from Last 3 Months or Most Recently Relevant to Health Maintenance Results * FECAL HEME SCREEN (06/02/2016 12:00 PM EST) Final Negative immunochemical fecal occult blood test Internal QC ok This test is not recommended to detect upper GI bleeding. [facility] Stool specimen (specimen) 06/02/2016 12:00 PM EST 06/02/2016 3:39 PM EST Narrative [facility] - 06/02/2016 3:39 PM EST From rectal tube sample. us Gabriele Soto MD IMMUNOLOGY ORDERABLES Final Result [facility] [address] [place] [address] from Last 3 Months or Most Recently Relevant to Health Maintenance Insurance [place] [address] [place] [address] [place], [facility] [place] [address] [place] PART [place] PART A AND B Advance Directives For more information, please contact: [phone] * Full Code (Latest Code Status on File) Date Activated Date Inactivated Comments 07/12/2017 2:24 PM 07/19/2017 6:59 PM * Full Code Date Activated Date Inactivated Comments 07/10/2017 11:07 PM 07/12/2017 2:15 PM * Full Code Date Activated Date Inactivated Comments 05/31/2016 12:29 PM 06/05/2016 6:41 PM * Full Code Date Activated Date Inactivated Comments 03/01/2015 12:17 PM 03/07/2015 9:26 PM Care Teams Paralegal Supervisor Relationship Specialty Start Date End Date Kevin Leong Sr., MD [address] [place] [address] [place] [phone] PCP - General Field Insurance Sales Manager 10/29/13
--- OUTSIDE RECORDS SUMMARY | 2024-02-27 10:43 | XMS_ITS | Encounter Summary ---
Author Organization [place] [address] Care Team Providers Care Instructor Of Nursing Name Role Phone Salo Segovia MD, Kevin [place] Primary Care Provid er Reason for Visit * Reason Comments Groin Pain from [facility] up this morning not feeling right. pt also states his penis hurts. bg 96. CPTA-none Encounter Details Date Type Department Care Team (Late st Contact Info) Description 06/01/2017 5:20 AM EST - 06/01/2017 9:28 AM EST Emergency [facility] [place] [address] Griffin De La Torre MD [address] [place] [address] [place] [address] Penile pain (Primary Dx) Discharge Disposition: Home or Self [...] Sign Reading Time Taken Comments Blood Pressure 158/71 06/01/2017 9:00 AM EST Pulse 75 06/01/2017 8:39 AM EST Temperature 36.8 ??C (98.3 ??F) 06/01/2017 5:23 AM ES T Respiratory Rate 12 06/01/2017 8:39 AM EST Oxygen Saturation 96% 06/01/2017 9:00 AM EST Inhaled Oxygen Concentration - - Weight - - Height - - Body Mass Index - - documented in this encounter Discharge Instructions * Discharge Instructions* Griffin De La Torre MD - 06/01/2017 7:13 AM EST Call 911 or go to the nearest Emergency Department immediately for worsening symptoms or any new orsevere symptoms, which include but are not limited to increasing or new pain, difficulty breathing,chest pain, lightheadedness, difficulty moving/talking, sensory loss, difficulty to control your bowel or bladder function, altered level of consciousness, neck stiffness, intractable nausea/vomiting, intractable pain, inability to tolerate oral hydration with fluids, fever >101, chills, severe or persistent bleeding, or any other concerns. documented in this encounter Medications at Time [...] Code Departure Means Destination Home or Self Care [facility] nor documented in this encounter ED Notes * Katy Tatum RN - 06/01/2017 9:27 AM EST Cab called Pt given cab voucher and copy of discharged papers Report had already been called to n. home * Katy Tatum RN - 06/01/2017 8:40 AM EST Waiting on ride back to n. home * Katy Tatum RN - 06/01/2017 7:24 AM EST Report called to [facility] pt usually comes back by cab * Katy Tatum RN - 06/01/2017 7:16 AM EST Report received from Adrienne * Griffin De La Torre MD - 06/01/2017 5:20 AM EST Images from the original note were not included. Chief Complaint Patient presents with ??? Groin Pain from [facility] woke up this morning not feeling right. pt also states his penis hurts. bg 96. CPTA-none Patient is a 72-year-old male who presents to the ED from [facility] for evaluation. Patient reportedly was complaining to staff earlier today that he had penis pain. Patient stated it hurt whenhe urinated. Patient also told them that he wasn't feeling right. Patient did not elaborate anymore on this. Patient this time denies abdominal pain, chest pain, shortness of breath, fever, chills.Patient is a poor historian otherwise. He denies any other concerns. Discussion with the nursing facility, they deny any other concerns. Patient History No Known Allergies Home Medications: Prior to Admission medications Medication Sig Start Date End Date Taking? Authorizing Provider acetaminophen Oral tablet Take 650 mg by mouth every 4 hours as needed for Pain (2 tabs for elevated temp/discomfort). Yes Provider, Historical amantadine HCl (SYMMETREL) 100 mg Oral Capsule Take 100 mg by mouth 2 times daily. Yes Provider, Historical amLODIPine (NORVASC) 2.5 mg Oral Tablet Take 2.5 mg by mouth daily. Yes Provider, Historical Aspirin 81 mg Take 81 mg by mouth daily. Yes Provider, Historical atorvastatin (LIPITOR) 10 mg Oral Tablet Take 10 mg by mouth daily. Yes Provider, Historical cariprazine (VRAYLAR) 1.5 mg Oral Capsule Take 1.5 mg by mouth daily. Yes Provider, Historical carvedilol (COREG) 25 mg Oral Tablet Take 25 mg by mouth 2 times daily. Yes Provider, Historical Donepezil (ARICEPT) 23 mg Oral Tablet Take by mouth nightly. Yes Provider, Historical doxazosin (CARDURA) 2 mg Oral Tablet Take 2 mg by mouth daily. Yes Provider, Historical fUROsemide (LASIX) 40 mg Oral Tablet Take 40 mg by mouth every 12 hours. Yes Provider, Historical ondansetron (ZOFRAN-ODT) 4 mg Oral Tablet, Rapid Dissolve Take 4 mg by mouth every 6 hours as needed for Nausea. Yes Provider, Historical pantoprazole (PROTONIX) 40 mg Oral Tablet, Delayed Release (E.C.) Take 40 mg by mouth daily. Yes Provider, Historical potassium chloride (MICRO-K) 10 mEq Oral Capsule, Sustained Release Take 10 mEq by mouth 2 times daily. Yes Provider, Historical risperiDONE (RISPERDAL) 4 mg tablet Take 4 mg by mouth 2 times daily. Yes Provider, Historical Saccharomyces boulardii (FLORASTOR) 250 mg Oral Capsule Take 250 mg by mouth 2 times daily. Yes Provider, Historical senna (SENOKOT) 8.6 mg Oral Tablet Take 8.6 mg by mouth daily. Yes Provider, Historical ergocalciferol (VITAMIN D) 50,000 unit Oral Capsule Take by mouth once a week. Provider, Historical FLUoxetine (PROZAC) 40 mg capsule Take 40 mg by mouth 2 times daily. Provider, Historical guaiFENesin-dextromethorphan (ROBITUSSIN DM) 10-100 mg/5 mL syrup Take 10 mL by mouth every 4 hoursas needed for Cough. Provider, Historical haloperidol (HALDOL) 5 mg tablet Take 5 mg by mouth every 4 hours as needed for Agitation (every 4 hours as needed for agitation). Provider, Historical loperamide (IMODIUM) 2 mg Oral Capsule Take by mouth 2 times daily. Provider, Historical QUEtiapine (SEROQUEL) 25 mg Oral Tablet Take by mouth 2 times daily. Provider, Historical simvastatin (ZOCOR) 10 mg [...] abdominal pain, diarrhea, nausea and vomiting. Genitourinary: Positive for dysuria and penile pain. Negative for frequency and testicular pain. Musculoskeletal: Negative. Skin: Negative for rash. Neurological: Negative. Psychiatric/Behavioral: Negative. All other systems reviewed and are negative. Physical Exam Blood pressure 149/73, pulse 76, temperature 98.3 ??F (36.8 ??C), temperature source Oral, resp. rate 18, SpO2 97 %. Physical Exam Constitutional: He is oriented to person, place, and time. He appears well- developed and well-nourished. No distress. HENT: Mouth/Throat: Oropharynx is clear and moist. Eyes: Conjunctivae and EOM are normal. Pupils are equal, round, and reactive to light. Neck: Normal range of motion. Neck supple. Cardiovascular: Normal rate and regular rhythm. Exam reveals no gallop and no friction rub. No murmur heard. Pulmonary/Chest: Effort normal and breath sounds normal. Abdominal: Soft. Bowel sounds are normal. He exhibits no distension. There is no tenderness. Genitourinary: Testes normal and penis normal. Right testis shows no mass and no tenderness. Left testis shows no mass and no tenderness. Circumcised. No penile erythema or penile tenderness. No discharge found. Musculoskeletal: He exhibits no edema. Lymphadenopathy: He has no cervical adenopathy. Neurological: He is alert and oriented to person, place, and time. Skin: Skin is warm and dry. No rash noted. Psychiatric: He has a normal mood and affect. Nursing note and vitals reviewed. Procedures Radiology/EKG/Labs: Results for orders placed or performed during the hospital encounter of 06/01/17 COMPREHENSIVE METABOLIC PANEL Result Value Ref Range Sodium 144 136 - 145 mmol/L Potassium 3.0 (L) 3.5 - 5.0 mmol/L Chloride 98 98 - 107 mmol/L Total CO2 32 (H) 22 - 29 mmol/L Anion Gap 14 7 - 16 mmol/L Calcium 9.0 8.8 - 10.2 mg/dL Glucose Lvl 112 (H) 82 - 100 mg/dL BUN 12 8 - 23 mg/dL Creatinine 1.23 0.67 - 1.30 mg/dL Albumin 3.9 3.2 - 4.6 gm/dL Total Protein 7.4 6.4 - 8.3 gm/dL Bili Total 0.7 0.1 - 1.4 mg/dL ALT 56 (H) <=41 IU/L AST 45 (H) <=40 IU/L Alk Phos 98 40 - 129 IU/L GFR Afr Am 68 mL/min/1.73 m2 GFR Non Afr Am 59 mL/min/1.73 m2 URINALYSIS Result Value Ref Range UA Color Yellow UA Appear Clear Clear UA Glucose Negative Negative mg/dL UA Ketones Negative Negative mg/dL UA Blood Negative Negative UA pH 7.0 5.0 - 8.0 pH UA Protein Negative Negative mg/dL UA Urobilinogen Normal <=1 E.U./dL UA Nitrite Negative Negative UA Leuk Est Negative Negative UA Spec Grav 1.012 1.001 - 1.035 no units UA WBC <1 0 - 4 /HPF UA RBC 1 0 - 3 /HPF UA Squam Epi Few /LPF UA Mucus Trace /LPF ED Course: Appropriate laboratory and radiology studies reviewed Patient is a 72-year-old male who presents to the ED for dysuria.At this time the patient pushes large unremarkable. Urinalysis is negative for infection. Patient clarified his complaint with the nurse. Apparently the patient had a bad dream and woke up grabbing his penis. He states he had some pain after grabbing. He states he does not have pain at this time. Patient did have mild hypokalemia.Patient instructed to follow with PCP or return to the ED for any other symptoms or concerns. ED Clinical Impression: 1. Penile pain Critical Care time Condition at Discharge/Transfer from Department: Stable This chart was completed using voice recognition technology and may contain unintended errors Griffin De La Torre MD 06/01/17 0704 documented in this encounter Plan of Treatment Not on file documented as of this encounter Procedures Procedure Name Priority Date/Time Associated Diagnosis Comments DIFFERENTIAL Routine 06/01/2017 6:45 AM EST CBC WITH DIFF STAT 06/01/2017 6:45 AM EST EXTRA COLBERT URINE CX STAT 06/01/2017 6 :11 AM EST URINALYSIS STAT 06/01/2017 6:11 AM EST COMPREHENSIVE METABOLIC PANEL STAT 06/01/2017 5:55 AM EST documented in this encounter Results * DIFFERENTIAL (06/01/2017 6:45 AM EST) Segs Percent 59 % 06/01/2017 8:11 AM EST [facility] Lymph Percent 19 % 06/01/2017 8:11 AM EST [facility] [place] Percent 17 % 06/01/2017 8:11 AM EST [facility] Eos Percent 3 % 06/01/2017 8:11 AM EST [facility] Bands Percent 2 <=10 % 06/01/2017 8:11 AM EST [facility] Neut # 2.3 1.8 - 7.7 x10(3)/mc L 06/01/2017 8:11 AM EST [facility] Lymph # 0.7 0.6 - 4.8 x10(3)/mc L 06/01/2017 8:11 AM EST [facility] [place] # 0.6 0.0 - 1.3 x10(3)/mc L 06/01/2017 8:11 AM EST [facility] Eos# 0.1 0.0 - 0.5 x10(3)/mc L 06/01/2017 8:11 AM EST [facility] Aniso Slight 06/01/2017 8:11 AM EST [facility] Polychrom Slight 06/01/2017 8:11 AM EST [facility] Ovalocyte Occasional 06/01/2017 8:11 AM EST [facility] Teardrop Cell Occasional 06/01/2017 8:11 AM EST [facility] Stomatocyte Occasional 06/01/2017 8:11 AM EST [facility] Blood VENOUS BLOOD / Unknown Venipuncture / Unknown 06/01/2017 6:45 AM EST 06/01/2017 6:52 AM EST us Griffin De La Torre MD HEMATOLOGY ORDERABLES Final Resu lt [facility] [address] [place] [address] * (ABNORMAL) CBC WITH DIFF (06/01/2017 6:45 AM EST) WBC 3.8(L) 4.0 - 11.0 x10(3)/mcL 06/01/2017 8:11 AM EST [facility] RBC 4.21(L) 4.30 - 5.81 x10(6)/mcL 06/01/2017 8:11 AM [facility] Hgb 13.3(L) 13.5 - 17.1 gm/dL 06/01/2017 8:11 AM [facility] Hct 38.4(L) 38.9 - 51.6 % 06/01/2017 8:11 AM [facility] MCV 91.2 82.5 - 99.8 fL 06/01/2017 8:11 AM EST [facility] MCH 31.5 27.0 - 34.3 pg 06/01/2017 8:11 AM EST [facility] MCHC 34.6 32.1 - 35.3 gm/dL 06/01/2017 8:11 AM [facility] RDW 15.0 11.5 - 15.0 % 06/01/2017 8:11 AM EST [facility] Platelet 152 144 - 423 x10(3)/mcL 06/01/2017 8:11 AM EST [facility] MPV 7.7 6.8 - 10.8 fL 06/01/2017 8:11 AM EST [facility] Blood VENOUS BLOOD / Unknown Venipuncture / Unknown 06/01/2017 6:45 AM EST 06/01/2017 6:52 AM EST us Griffin De La Torre MD HEMATOLOGY ORDERABLES Final Resu lt Performing Organization Address [facility] [place] [address] * EXTRA COLBERT URINE CX (06/01/2017 6:11 AM EST) Urine URINE SPECIMEN OBTAINED VIA STRAIGHT CATHETER / Unknown 06/01/2017 6:11 AM EST 06/01/2017 6:18 AM EST us Griffin De La Torre MD MICROBIOLOGY - GENERAL ORDERABLE S Final Result Performing Organization Address [facility] [place] [address] * URINALYSIS (06/01/2017 6:11 AM EST) UA Color Yellow 06/01/2017 6:46 AM [facility] UA Appear Clear Clear 06/01/2017 6:46 AM [facility] UA Glucose Negative Negative mg/dL 06/01/2017 6:46 AM [facility] UA Ketones Negative Negative mg/dL 06/01/2017 6:46 AM [facility] UA Blood Negative Negative 06/01/2017 6:46 AM [facility] UA pH 7.0 5.0 - 8.0 pH 06/01/2017 6:46 AM [facility] UA Protein Negative Negative mg/dL 06/01/2017 6:46 AM [facility] UA Urobilinogen Normal <=1 E.U./dL 06/01/19 18 6:46 AM [facility] UA Nitrite Negative Negative 06/01/2017 6:46 AM [facility] UA Leuk Est Negative Negative 06/01/2017 6:46 AM [facility] UA Spec Grav 1.012 1.001 - 1.035 no units 06/01/2017 6:46 AM [facility] Comment: Reference range valid for random specimens only. UA WBC <1 0 - 4 /HPF 06/01/2017 6:46 AM [facility] UA RBC 1 0 - 3 /HPF 06/01/2017 6:46 AM [facility] UA Squam Epi Few /LPF 06/01/2017 6:46 AM [facility] UA Mucus Trace /LPF 06/01/2017 6:46 AM [facility] Urine URINE SPECIMEN OBTAINED VIA STRAIGHT CATHETER / Unknown 06/01/2017 6:11 AM EST 06/01/2017 6:18 AM EST us Griffin De La Torre MD URINE ORDERABLES Final Result Performing Organization Address City/State/[facility] Co de Phone Number [facility] [address] [place] [address] * (ABNORMAL) COMPREHENSIVE METABOLIC PANEL (06/01/2017 5:55 AM EST) Sodium 144 136 - 145 mmol/L 06/01/2017 6:33 AM [facility] Potassium 3.0(L) 3.5 - 5.0 mmol/L 06/01/2017 6:33 AM [facility] Chloride 98 98 - 107 mmol/L 06/01/2017 6:33 AM [facility] Total CO2 32(H) 22 - 29 mmol/L 06/01/2017 6:33 AM [facility] Anion Gap 14 7 - 16 mmol/L 06/01/2017 6:33 AM [facility] Calcium 9.0 8.8 - 10.2 mg/dL 06/01/2017 6:33 AM [facility] Glucose Lvl 112(H) 82 - 100 mg/dL 06/01/2017 6:33 AM [facility] BUN 12 8 - 23 mg/dL 06/01/2017 6:33 AM [facility] Creatinine 1.23 0.67 - 1.30 mg/dL 06/01/2017 6:33 AM [facility] Albumin 3.9 3.2 - 4.6 gm/dL 06/01/2017 6:33 AM [facility] Total Protein 7.4 6.4 - 8.3 gm/dL 06/01/2017 6:33 AM [facility] Bili Total 0.7 0.1 - 1.4 mg/dL 06/01/2017 6:33 AM [facility] ALT 56(H) <=41 IU/L 06/01/2017 6:33 AM [facility] AST 45(H) <=40 IU/L 06/01/2017 6:33 AM [facility] Alk Phos 98 40 - 129 IU/L 06/01/2017 6:33 AM [facility] GFR Afr Am 68 mL/min/1.7 3 m2 06/01/2017 6:33 AM [facility] GFR Non Afr Am 59 mL/min/1.7 3 m2 06/01/2017 6:33 AM [facility] Comment: GFR Afr Am and GFR Non [...] VENOUS BLOOD / Unknown Venipuncture / Unknown 06/01/2017 5:55 AM EST 06/01/2017 6:05 AM EST us Griffin De La Torre MD CHEMISTRY ORDERABLES Final Resul t [facility] [address] [place] [address] documented in this encounter Visit Diagnoses Diagnosis Penile pain- Primary Unspecified disorder of penis documented in this encounter Historical Medications * This list may reflect changes made after this encounter. potassium chloride (MICRO-K) 10 mEq Oral Capsule, Sustained Release Take 10 mEq by mouth 2 times daily. pantoprazole (PROTONIX) 40 mg Oral Tablet, Delayed Release (E.C.) Take 40 mg by mouth daily. fUROsemide (LASIX) 40 mg Oral Tablet Take 40 mg by mouth every 12 hours. Saccharomyces boulardii (FLORASTOR) 250 mg Oral Capsule Take 250 mg by mouth 2 times daily. doxazosin (CARDURA) 2 mg Oral Tablet Take 2 mg by mouth daily. atorvastatin (LIPITOR) 10 mg Oral Tablet Take 10 mg by mouth daily. amantadine HCl (SYMMETREL) 100 mg Oral Capsule Take 100 mg by mouth 2 times daily. cariprazine (VRAYLAR) 1.5 mg Oral Capsule Take 1.5 mg by mouth daily. 07/19/2017 senna (SENOKOT) 8.6 mg Oral Tablet Take 8.6 mg by mouth daily. 07/19/2017 ondansetron (ZOFRAN-ODT) 4 mg Oral Tablet, Rapid Dissolve Take 4 mg by mouth every 6 hours as needed for Nausea. 07/19/2017 added in this encounter Care Teams Instructor Of Nursing Relationship Specialty Start Date End Date Kevin Leong Sr., MD [address] [place] [id number] PCP - General Service Line Layer 10/29/13 documented as of this encounter
--- OUTSIDE RECORDS SUMMARY | 2024-02-27 10:43 | XMS_ITS | Encounter Summary ---
Author Organization [place] [address] Care Team Providers Care Student Life Vice President Name Role Phone Salo Segovia MD, Kevin Colon Primary Care Provid er Reason for Visit * Reason Comments Headache Patient is resident of [facility], sent in by ambulance for a headache. Lindseytent has dementia and is unreliable historian. CPTA: Blood sugar 95. Encounter Details Date Type Department Care Team (Late st Contact Info) Description 06/29/2017 11:41 PM EDT - 06/30/2017 2:38 AM EDT Emergency [place] [address] [address] Jeb Medina MD [address] [place] [address] [place] [address] Nonintractable episodic headache, unspecified headache type (Primary Dx); History of paranoid schizophrenia; History of dementia Discharge Disposition: Home or Self Care Social [...] Sign Reading Time Taken Comments Blood Pressure 139/61 06/30/2017 1:00 AM EDT Pulse 72 06/30/2017 12:00 AM EDT Temperature 36.7 ??C (98 ??F) 06/29/2017 11:33 PM EDT Respiratory Rate 20 06/30/2017 12:00 AM EDT Oxygen Saturation 97% 06/30/2017 1:00 AM EDT Inhaled Oxygen Concentration - - Weight 124.7 kg (275 lb) 06/29/2017 11:33 PM EDT Height 181.6 cm (5' 11.5 ) 06/29/2017 11:33 PM E DT Body Mass Index 37.82 06/29/2017 11:33 PM EDT documented in this encounter Discharge Instructions * Discharge Instructions* Jeb Medina MD - 06/30/2017 1:25 AM EDT Continue home meds as previously directed. Return for fever, vomiting, syncope.Patient discharged in stable condition. Return for any worsening of symptoms or any other problems or concerns. documented in this encounter Medications at [...] Departure Means Destination Home or Self Care [facility] vigil documented in this encounter ED Notes * Namita Vanegas RN - 06/30/2017 1:44 AM EDT [facility] called and informed that patient will be returning to them by ambulance. Spoke with Laila. * Jeb Medina MD - 06/29/2017 11:26 PM EDT Chief Complaint Patient presents with ??? Headache Patient is resident of [facility], sent in by ambulance for a headache. Genoveva has dementia andis unreliable historian. CPTA: Blood sugar 95. 72-year-old white male with reported history of dementia and schizophrenia, otherwise per EMS from [facility] reportedly with a headache. Patient is a poor historian. When asked why the patient is in the ED, he states to me I'm not sure. When I asked specifically whether or not hehas a headache, the patient describes a mild occipital area headache. He is unable to further elaborate on any characteristics of the headache and cannot tell me how long he has had headache or whether it is constant or intermittent. On direct questioning, he denies fevers, neck pain or neck stiffness, nausea, vomiting, cough, chest pain, shortness of breath, abdominal pain. No further problems or concerns were identified Past medical history--CHF, depression, hypertension, hypercholesterolemia, paranoid schizophrenia, dementia per longterm report Social history--no history of tobacco or alcohol use per longterm report History provided by: EMS personnel and longterm History limited by: Dementia Headache Patient History No Known Allergies Home Medications: [...] SURGERY Review of Systems Review of Systems Unable to perform ROS: Dementia Neurological: Positive for headaches. Physical Exam Blood pressure 153/67, pulse 69, temperature 98 ??F (36.7 ??C), temperature source Oral, resp. rate20, height 5' 11.5 (1.816 m), weight 275 lb (124.7 kg), SpO2 95 %. Physical Exam Constitutional: He appears well-developed and well-nourished. No distress. Elderly white male in no apparent distress HENT: Head: Normocephalic and atraumatic. Right Ear: Tympanic membrane and ear canal normal. Left Ear: Tympanic membrane and ear canal normal. Mouth/Throat: Oropharynx is clear and moist. Eyes: Conjunctivae and EOM are normal. Pupils are equal, round, and reactive to light. No scleral icterus. Neck: Normal range of motion. Neck supple. No JVD present. Cardiovascular: Normal rate, regular rhythm, normal heart sounds and intact distal pulses. Exam reveals no gallop and no friction rub. No murmur heard. Pulmonary/Chest: Effort normal and breath sounds normal. Abdominal: Soft. Bowel sounds are normal. He exhibits no distension. There is no tenderness. Musculoskeletal: He exhibits no edema. Lymphadenopathy: He has no cervical adenopathy. Neurological: He is alert. He has normal strength. No cranial nerve deficit or sensory deficit. Oriented to person and general place, cannot tell me the day of the weeks/months/year. Follows simple commands appropriately. Remainder of the neurologic exam is nonfocal Skin: Skin is warm and dry. Psychiatric: Cooperative Nursing note and vitals reviewed. Procedures Radiology/EKG/Labs: Results for orders placed or performed during the hospital encounter of 06/29/17 CT HEAD WO CONTRAST Narrative CT HEAD WO CONTRAST 06/30/2017 12:35 AM CLINICAL HISTORY: -Headache, chronic, no new features, norm neuro exam COMPARISON: None. PROCEDURE COMMENTS: Routine noncontrast head CT with multiplanar reconstructions. Automated exposure control for dose reduction was used. CTDIvol: 61.8 mGy. DLP: 1076 mGy-cm. FINDINGS: No evidence of acute stroke, mass, or hemorrhage. No fracture or extra-axial collection. Involutional changes include areas of white matter hypodensity consistent with chronic small vessel ischemia. Included portions of the paranasal sinuses, mastoids, and orbits unremarkable. Impression No acute intracranial abnormality. ED Course: Appropriate laboratory and radiology studies reviewed Patient was seen and evaluated. Diagnostic studies were obtained and the patient was given 30 mg ofToradol IM. He was resting quietly and continued to have a nonfocal neurologic exam other than his apparent baseline confusion secondary to underlying dementia. Diagnostic studies as noted above. Patient was sent from a local longterm for reported headache. Patient did not Complain of headache u ntil he was specifically asked by me, but now admits that the headache is resolved following the Toradol. Plan is to discharge the patient back to the longterm to continue his previously prescribed plan of care ED Clinical Impression: #1 cephalgia #2 history of paranoid schizophrenia #3 history of dementia Critical Care time Condition at Discharge/Transfer from Department: Stable This chart was completed using voice recognition technology and may contain unintended errors Jeb Medina MD 06/30/17 0141 documented in this encounter Plan of Treatment Not on file documented as of this encounter Procedures Procedure Name Priority Date/Time Associated Diagnosis Comments CT HEAD WO CONTRAST STAT 06/30/2017 1 2:35 AM EDT documented in this encounter Results * CT HEAD WO CONTRAST (06/30/2017 12:35 AM EDT) Anatomical Region Laterality Modality Head Computed Tomogra phy 06/30/2017 12:3 5 AM EDT Impressions 06/30/2017 12:46 AM EDT No acute intracranial abnormality. Narrative 06/30/2017 12:[address] HEAD WO CONTRAST ??06/30/2017 12:35 AM ?? CLINICAL HISTORY: ??-Headache, chronic, no new features, norm neuro exam COMPARISON: ??None. PROCEDURE COMMENTS: Routine noncontrast head CT with multiplanar reconstructions. ??Automated exposure control for dose reduction was used. CTDIvol: 61.8 mGy. DLP: 1076 mGy-cm. FINDINGS: ?? No evidence of acute stroke, mass, or hemorrhage. No fracture or extra-axial collection. ??Involutional changes include areas of white matter hypodensity consistent with chronic small vessel ischemia. Included portions of the paranasal sinuses, mastoids, and orbits unremarkable. Procedure Note Darrius Peterson MD - 06/30/2017 CT HEAD WO CONTRAST 06/30/2017 12:35 AM CLINICAL HISTORY: -Headache, chronic, no new features, norm neuro exam COMPARISON: None. PROCEDURE COMMENTS: Routine noncontrast head CT with multiplanar reconstructions. Automated exposure control for dose reduction wasused. CTDIvol: 61.8 mGy. DLP: 1076 mGy-cm. FINDINGS: No evidence of acute stroke, mass, or hemorrhage. No fracture orextra-axial collection. Involutional changes include areas of white matterhypodensity consistent with chronic small vessel ischemia. Included portions of the paranasal sinuses, mastoids, and orbitsunremarkable. IMPRESSION: No acute intracranial abnormality. Jeb Medina MD IMG CT ORDERABLES Final Res ult documented in this encounter Visit Diagnoses Diagnosis Nonintractable episodic headache, unspecified headache type- Primary History of paranoid schizophrenia Personal history of schizophrenia History of dementia documented in this encounter Administered Medications Inactive Administered Medications - up to 1 most recent administrations Medication Order MAR Action Action Date Dose Rate Site ketorolac (TORADOL) injection 30 mg 30 mg, Intramuscular, ONCE, 1 dose, On Mon06/30/17 at 0015, Maximum IV dose is 30mg Given 06/30/2017 12:38 AM EDT 30 mg Left upper gluteus documented in this encounter Active and Recently Administered Medications Times are shown in EDT. Scheduled Medication Order 06/28/2017 06/29/2017 06/30/2017 ketorolac (TORADOL) injection 30 mg (COMPLETED) 30 mg, Intramuscular, ONCE, 1 dose, On Mon06/30/17 at 0015, Maximum IV dose is 30mg 0038 (Given - Provid er: Namita Vanegas RN) documented in this encounter Orders Medications Ordered That Cb ht Not Have Been Administered Count Last Ordered Date First Ordered Date ketorolac (TORADOL) injection 30 mg 1 06/30 documented in this encounter Care Teams Student Life Vice President Relationship Specialty Start Date End Date Kevin Leong Sr., MD [address] [place] [phone] PCP - General Mobile Health Vehicle Operator 10/29/13 documented as of this encounter
--- OUTSIDE RECORDS SUMMARY | 2024-02-27 10:43 | XMS_ITS | Encounter Summary ---
Author Organization Healthcare Address [address] [place] [address] Care Team Providers Care Environmental Services Aide Name Role Phone Jeb Gonzalez MD Primary Care Provider [phone] Encounter Details Date Type Department Care Team (Late Contact Info) Description 11/07/2023 Orders Only External Location [address] [place] [address] Provider, External Social History Tobacco [...] Hospital Encounter [facility] [address] [place] [phone] John Vargas MD [address] [phone] 02/28/2024 10:40 AM EST Anesthesia Event [facility] [address] [place] [phone] Fransico Mcgarry MD [address] [place] [address] 02/28/2024 10:40 AM EST - 02/28/2024 1:05 PM EST Surgery [facility] [address] [place] [id number] John Vargas MD [address] [address] URETEROSCOPY, WITH LASER LITHOTRIPSY [[id number] (CPT??)] 05/16/2024 3:45 PM EST Office Visit Medical Office Building Urology [address] [facility], [address] [place] [address] Makr Moore MD [address] [place] [address] Scheduled Procedures Name Priority Associated Diagnoses Date/Ti me URETEROSCOPY, WITH LASER LITHOTRIPSY Ureteral stone 02/28/2024 10:40 AM EST documented as of this encounter Procedures Procedure Name Priority Date/Time Associated Diagnosis Comments CT OUTSIDE IMAGES 11/07/2023 12:36 PM EDT documented in this encounter Results * CT OUTSIDE IMAGES (11/07/2023 12:36 PM EDT) Anatomical [...] documented as of this encounter Care Teams Environmental Services Aide Relationship Specialty Start Date End Date Jeb Gonzalez MD [address] [place] [address] PCP - General 10/06/20 documented as of this encounter
[2024-02-27 10:44] LABS: VBG Base Excess -0.4 mmol/L (-2.4-2.3); VBG HCO3 24.1 mmol/L (23-30); VBG Oxygen Saturation 81.8 % (50-70); VBG PCO2 38.1 mmol/L (35-51); VBG PH 7.42 mmol/L (7.31-7.41); VBG PO2 48.2 mmol/L (28-40); VBG Total CO2 25.3 mmol/L (23-27)
--- OUTSIDE RECORDS SUMMARY | 2024-02-27 10:44 | XMS_ITS | Encounter Summary ---
Author Organization [place] [address] Care Team Providers Care Legal Financial Specialist Name Role Phone Salo Segovia MD, [facility] er Reason for Visit * Reason Comments Back Pain lower back pain was recently released due to low back pain Encounter Details Date Type Department Care Team (Late st Contact Info) Description 01/15/2017 8:24 AM EDT - 01/15/2017 12:07 PM EDT Emergency [facility] [place] [address] Nader Holder MD [address] [place] [address] [place] [address] Acute low back pain without sciatica, unspecified back pain laterality (Primary Dx) Discharge Disposition: Home or Self [...] Sign Reading Time Taken Comments Blood Pressure 153/84 01/15/2017 11:41 AM EDT Pulse 83 01/15/2017 11:41 AM EDT Temperature 37.1 ??C (98.7 ??F) 01/15/2017 11:41 AM E DT Respiratory Rate 18 01/15/2017 11:41 AM EDT Oxygen Saturation 93% 01/15/2017 11:41 AM EDT Inhaled Oxygen Concentration - - Weight 124.7 kg (275 lb) 01/15/2017 8:24 AM EDT Height 181.6 cm (5' 11.5 ) 01/15/2017 8:24 AM ED T Body Mass Index 37.82 01/15/2017 8:24 AM EDT documented in this encounter Discharge Instructions * Discharge Instructions* Nader Holder MD - 01/15/2017 11:17 AM EDT Change or worsening symptoms return. Follow-up with family doctor to schedule an MRI of the back. * Attachments The following attachments cannot be sent through Care Everywhere. * BACK PAIN, ADULT, [id number] ([place]) documented in this encounter Medications at Time of Discharge acetaminophen Oral tablet Take 650 mg by mouth every 4 hours as needed for Pain (2 tabs for elevated temp/discomfort ). Aspirin 81 mg Take 81 mg by mouth daily. carvedilol (COREG) 25 mg Oral Tablet Take 25 mg by mouth 2 times daily. FLUoxetine (PROZAC) 40 mg capsule Take 40 mg by mouth 2 times daily. amLODIPine (NORVASC) 2.5 mg Oral Tablet Take 2.5 mg by mouth daily. 8 Donepezil (ARICEPT) [...] Take by mouth 2 times daily. 8 oxyCODONE-acetam inophen (PERCOCET) 5-325 mg Oral Tablet Take 1 Tab by mouth every 4 hours as needed for Pain for up to 15 doses. 15 Tab 01/15/2017 7 risperiDONE (RISPERDAL) 4 mg tablet Take 4 mg by mouth 2 times daily. 8 simvastatin (ZOCOR) 10 mg Take 10 mg by mouth nightly. 8 spironolactone (ALDACTONE) 25 mg Oral Tablet Take 0.5 Tabs by mouth daily. 15 Tab 3 04/23/2015 8 terazosin (HYTRIN) 2 mg capsule Take 2 mg by mouth nightly. 8 valsartan (DIOVAN) 320 mg tablet Take 320 mg by mouth daily. 8 documented as of this encounter Ordered Prescriptions Prescription Sig Dispense Quantity Refills Last Filled Start Date End Date oxyCODONE-acetamin ophen (PERCOCET) 5-325 mg Oral Tablet Take 1 Tab by mouth every 4 hours as needed for Pain for up to 15 doses. 15 Tab 01/15/2017 01/18/2017 documented in this encounter Discharge Disposition Disposition Code Departure Means Destination Home or Self Care [facility] nor documented in this encounter Procedure Notes * Elissa Powell RN - 01/15/2017 11:22 AM EDTProcedure(s): AMBULATE WITH ASST DEVICE Ambulated patient in al with walker, tolerated well. documented in this encounter ED Notes * Nader Holder MD - 01/15/2017 8:21 AM EDT CHIEF COMPLAINT Chief Complaint Patient presents with ??? Back Pain lower back pain was recently released due to low back pain HPI Renan Goncalves is a 71 y.o. male who presents to the ED by [facility] with complaints of back pain. He has a history of CHF, HTN, paranoid schizophrenia, and mild cognitive impairment. He was seen on 01/12/17 for evaluation of lower back pain after a mechanical fall. Patient lives at [facility]. Patient states he was having back pain in bed and thought he should come here. He states he isnormally ambulatory with a walker, but he has not been able to get around recently. He states he has developed a resting tremor in his right hand. He denies any radiation of pain into his legs. He states his symptoms are more of a weakness in his lower back. He states his chronic lower back issues have been worse in the mornings. He states he does not take anything for his pain. He denies a history of diabetes mellitus, neurologic disorder, or muscular disorders. Denies abdominal pain, vomiting, diarrhea, nausea, cough, fever, bowel symptoms, urinary symptoms or sore throat. REVIEW OF SYSTEMS See HPI for further details. Review of systems otherwise negative. PAST MEDICAL HISTORY Past Medical History: Diagnosis Date ??? KARINA (acute kidney injury) (HCC) 05/31/2016 ??? CHF (congestive heart failure) (HCC) ??? Depression ??? High cholesterol ??? Hypertension ECHO 02/2015- EF 60-65% ??? Obesity ??? Paranoid schizophrenia (HCC) ??? Pneumonia FAMILY HISTORY Family History Problem Relation Age [...] History: Procedure Laterality Date ??? HAND SURGERY CURRENT MEDICATIONS No current facility-administered medications for this encounter. Current Outpatient Prescriptions: ??? acetaminophen Oral tablet, Take 650 mg by mouth every 4 hours as needed for Pain (2 tabs for elevated temp/discomfort)., Disp: , Rfl: ??? amLODIPine (NORVASC) 2.5 [...] by mouth nightly., Disp: , Rfl: ??? ergocalciferol (VITAMIN D) 50,000 unit Oral Capsule, Take by mouth once a week., Disp: , Rfl: ??? FLUoxetine (PROZAC) 40 mg capsule, Take 40 mg by mouth 2 times daily., Disp: , Rfl: ??? guaiFENesin-dextromethorphan (ROBITUSSIN DM) [...] 2 times daily., Disp: , Rfl: ??? QUEtiapine (SEROQUEL) 25 mg Oral Tablet, Take by mouth 2 times daily., Disp: , Rfl: ??? risperiDONE (RISPERDAL) 4 mg tablet, Take 4 mg by mouth 2 times daily., Disp: , Rfl: ??? simvastatin (ZOCOR) 10 mg, Take 10 mg by mouth nightly., Disp: , Rfl: ??? spironolactone (ALDACTONE) 25 mg Oral Tablet, Take 0.5 Tabs by mouth daily., Disp: 15 Tab, Rfl:3 ??? terazosin (HYTRIN) 2 mg capsule, Take 2 mg by mouth nightly., Disp: , Rfl: ??? valsartan (DIOVAN) 320 mg tablet, Take 320 mg by mouth daily., Disp: , Rfl: ??? oxyCODONE-acetaminophen (PERCOCET) 5-325 mg Oral Tablet, Take 1 Tab by mouth every 4 hours as needed for Pain for up to 15 doses., Disp: 15 Tab, Rfl: 0 ALLERGIES No Known Allergies PHYSICAL EXAM VITAL SIGNS: BP 151/87 Pulse 74 Temp 98.8 ??F (37.1 ??C) (Oral) Resp 22 Ht 5' 11.5 (1.816 m) Wt 275 lb (124.7 kg) SpO2 92% BMI 37.82 kg/m?? Constitutional: Well developed, Well nourished, No acute distress, Non-toxic appearance. HENT: Normocephalic, Atraumatic, Bilateral external ears normal, Oropharynx moist, No oral exudates, Nose normal. Eyes: PERRLA, EOMI, Conjunctiva normal, No discharge. Neck: Normal range of motion, No tenderness, Supple, No stridor. Cardiovascular: Normal heart rate, Normal rhythm, No murmurs, No rubs, No gallops. Thorax & Lungs: Normal breath sounds, No respiratory distress, No wheezing, No chest tenderness. Abdomen: Bowel sounds normal, Soft, No tenderness, No masses, No pulsatile masses. No rebound or guarding. Skin: Warm, Dry, No erythema, No rash. Back: Mild right lower paraspinal tenderness. No midline tenderness. Extremities: Intact distal pulses, No edema, No tenderness, No cyanosis, No clubbing. Equal upper extremity strength. 5/5 leg extension and hip flexion. 5/5 dorsi and plantar flexion. Strong DP/PT pulses. Musculoskeletal: Good range of motion in all major joints. Neurologic: Alert & oriented x 3, Normal motor function, Normal sensory function, No focal deficits noted. Slight resting tremor on right. Psychiatric: Affect normal, Judgment normal, Mood normal. EKG RADIOLOGY/PROCEDURES Results for orders placed or performed during the hospital encounter of 01/15/17 XR LUMBAR SPINE AP AND LATERAL Narrative XR LUMBAR SPINE AP AND LATERAL, 01/15/2017 9:33 AM CLINICAL HISTORY: -BACK PAIN COMPARISON: None. PROCEDURE COMMENTS: 3 views lumbar spine per protocol. FINDINGS: Relatively severe degenerative change with prominent anterior flowing osteophytes throughout the lumbar spine seen. There is moderate disc space narrowing throughout the lumbar spine. There are no compression fractures. There is no lytic or destructive lesion. Impression Moderate diffuse spondylitic change in the lumbar spine. If there is strong concern for radiculopathy or myelopathy MRI study of choice URINALYSIS Result Value Ref Range UA Color Yellow UA Appear Clear Clear UA Ketones Negative Negative mg/dL UA Blood Small (A) Negative UA pH 6.0 5.0 - 8.0 pH UA Protein 30 (A) Negative mg/dL UA Urobilinogen 0.2 <=1 E.U./dL UA Nitrite Negative Negative UA Leuk Est Negative Negative UA Spec Grav 1.025 1.001 - 1.035 no units UA WBC <1 0 - 4 /HPF UA RBC 5 (H) 0 - 3 /HPF UA Squam Epi Few /LPF UA Mucus Trace /LPF UA Amorph Trace /LPF UA Glucose Negative Negative mg/dL CBC WITH DIFF Result Value Ref Range WBC 3.9 (L) 4.0 - 11.0 x10(3)/mcL RBC 4.20 (L) 4.30 - 5.81 x10(6)/mcL Hgb 12.5 (L) 13.5 - 17.1 gm/dL Hct 37.5 (L) 38.9 - 51.6 % MCV 89.2 82.5 - 99.8 fL MCH 29.8 27.0 - 34.3 pg MCHC 33.4 32.1 - 35.3 gm/dL RDW 15.3 (H) 11.5 - 15.0 % Platelet 169 144 - 423 x10(3)/mcL MPV 7.6 6.8 - 10.8 fL BASIC METABOLIC PANEL Result Value Ref Range Sodium 141 136 - 145 mmol/L Potassium 3.4 (L) 3.5 - 5.0 mmol/L Chloride 101 98 - 107 mmol/L Total CO2 29 22 - 29 mmol/L Anion Gap 11 7 - 16 mmol/L Calcium 8.8 8.8 - 10.2 mg/dL Glucose Lvl 110 (H) 82 - 100 mg/dL BUN 14 8 - 23 mg/dL Creatinine 1.24 0.67 - 1.30 mg/dL GFR Afr Am 68 mL/min/1.73 m2 GFR Non Afr Am 59 mL/min/1.73 m2 EXTRA TUBES PANEL Narrative The following orders were created for panel order EXTRA TUBES PANEL. Procedure Abnormality Status --------- ------ EXTRA LIGHT BLUE[[id number]] In process EXTRA MINT BUCK SEGOVIA[[id number]] In process Please view results for these tests on the individual orders. DIFFERENTIAL Result Value Ref Range Segs 71 % Lymph Percent 12 % Monos/100 Manual 9 % Eos 1 % Bands 7 <=10 % Neut # 3.0 1.8 - 7.7 x10(3)/mcL Lymph # 0.5 (L) 0.6 - 4.8 x10(3)/mcL Chase # 0.4 0.0 - 1.3 x10(3)/mcL Eos # Manual 0.0 0.0 - 0.5 x10(3)/mcL RBC Morph Normal COURSE & MEDICAL DECISION MAKING Pertinent Labs & Imaging studies reviewed. (See chart for details) 11:18 AM Patient states his pain is improved. 11:18 AM Patient was able to ambulate using a walker up and down the hallway according to nurses. Patient states he feels much better he's in no distress. Patient had a recent fall, likely musculoskeletal back pain. He is neurologically intact. FINAL IMPRESSION 1. 1. Acute low back pain without sciatica, unspecified back pain laterality This chart was completed using voice recognition technology and may contain unintended errors Najma Mayberry Scribe, am scribing for and in the presence of Nader Uribe MD Yocom, Emily, Scribe 01/15/17 0836 Nader Holder MD 01/15/17 1118 documented in this encounter Plan of Treatment Not on file documented as of this encounter Procedures Procedure Name Priority Date/Time Associated Diagnosis Comments EXTRA SPECIMENS (NON-BLOOD) Routine 01/15/2017 10:06 AM EDT Acute low back pain without sciatica, unspecified back pain laterality EXTRA COLBERT URINE CX Routine 01/15/2017 1 0:06 AM EDT Acute low back pain without sciatica, unspecified back pain laterality URINALYSIS STAT 01/15/2017 10:06 AM EDT EXTRA TUBES PANEL Routine 01/15/2017 10: 02 AM EDT EXTRA MINT GREEN LI Routine 01/15/2017 1 0:02 AM EDT EXTRA LIGHT BLUE Routine 01/15/2017 10:0 2 AM EDT DIFFERENTIAL Routine 01/15/2017 9:54 AM EDT CBC WITH DIFF STAT 01/15/2017 9:54 AM EDT BASIC METABOLIC PANEL STAT 01/15/2017 9:54 AM EDT XR LUMBAR SPINE AP AND LATERAL CHITO 01/15/2017 9:33 AM EDT documented in this encounter Results * EXTRA COLBERT URINE CX (01/15/2017 10:06 AM EDT) Urine specimen (specimen) 01/15/2017 10:06 AM EDT 01/15/2017 2:28 PM EDT us Nader Holder MD MICROBIOLOGY - GENERAL ORDER MONTY Final Result [facility] [address] [place] [address] * (ABNORMAL) URINALYSIS (01/15/2017 10:06 AM EDT) UA Color Yellow 01/15/2017 10:47 AM EDT [facility] UA Appear Clear Clear 01/15/2017 10:47 AM EDT [facility] UA Ketones Negative Negative mg/dL 01/15/2017 10:47 AM EDT [facility] UA Blood Small(A) Negative 01/15/2017 10:47 AM EDT [facility] UA pH 6.0 5.0 - 8.0 pH 01/15/2017 10:47 AM EDT [facility] UA Protein 30(A) Negative mg/dL 01/15/2017 10:47 AM EDT [facility] UA Urobilinogen 0.2 <=1 E.U./dL 01/16/20 17 10:47 AM EDT [facility] UA Nitrite Negative Negative 01/15/2017 10:47 AM EDT [facility] UA Leuk Est Negative Negative 01/15/2017 10:47 AM EDT [facility] UA Spec Grav 1.025 1.001 - 1.035 no units 01/15/2017 10:47 AM EDT [facility] Comment: Reference range valid for random specimens only. UA WBC <1 0 - 4 /HPF 01/15/2017 10:47 AM EDT [facility] UA RBC 5(H) 0 - 3 /HPF 01/15/2017 10:47 AM EDT [facility] UA Squam Epi Few /LPF 01/15/2017 10:47 AM EDT [facility] UA Mucus Trace /LPF 01/15/2017 10:47 AM EDT [facility] UA Amorph Trace /LPF 01/15/2017 10:47 AM EDT [facility] UA Glucose Negative Negative mg/dL 01/15/2017 10:47 AM EDT [facility] Urine specimen (specimen) URINE SPECIMEN COLLECTION, CLEAN CATCH / Unknown 01/15/2017 10:06 AM EDT 01/15/2017 10:14 AM EDT us Nader Holder MD URINE ORDERABLES Final Resul t Performing Organization Address [facility] [place] [address] * EXTRA MINT BUCK SEGOVIA (01/15/2017 10:02 AM EDT) Blood specimen (specimen) VENOUS BLOOD / Unknown Venipuncture / Unknown 01/15/2017 10:02 AM EDT 01/15/2017 10:04 AM EDT us Nader Holder MD CHEMISTRY ORDERABLES Final R esult Performing Organization Address [facility] [place] [address] * EXTRA LIGHT BLUE (01/15/2017 10:02 AM EDT) Blood specimen (specimen) VENOUS BLOOD / Unknown Venipuncture / Unknown 01/15/2017 10:02 AM EDT 01/15/2017 10:08 AM EDT us Nader Holder MD HEMATOLOGY ORDERABLES Final Result Performing Organization Address [facility] Co de Phone Number [facility] [address] [place] [address] * (ABNORMAL) DIFFERENTIAL (01/15/2017 9:54 AM EDT) Segs Percent 71 % 01/15/2017 10:53 AM EDT [facility] Lymph Percent 12 % 01/15/2017 10:53 AM EDT [facility] Chase Percent 9 % 01/15/2017 10:53 AM EDT [facility] Eos Percent 1 % 01/15/2017 10:53 AM EDT [facility] Bands Percent 7 <=10 % 01/15/2017 10:53 AM EDT [facility] Neut # 3.0 1.8 - 7.7 x10(3)/[facility] 01/15/2017 10:53 AM EDT [facility] Lymph # 0.5(L) 0.6 - 4.8 x10(3)/mcL 01/15/2017 10:53 AM EDT [facility] Chase # 0.4 0.0 - 1.3 x10(3)/mcL 01/15/2017 10:53 AM EDT [facility] Eos# 0.0 0.0 - 0.5 x10(3)/[facility] 01/15/2017 10:53 AM EDT [facility] RBC Morph Normal 01/15/2017 10:53 AM EDT [facility] Blood specimen (specimen) VENOUS BLOOD / Unknown Venipuncture / Unknown 01/15/2017 9:54 AM EDT 01/15/2017 9:58 AM EDT us Nader Holder MD HEMATOLOGY [place]AB[place] [address] * (ABNORMAL) BASIC METABOLIC PANEL (01/15/2017 9:54 AM EDT) Sodium 141 136 - 145 mmol/L 01/15/2017 10:19 AM EDT [facility] Potassium 3.4(L) 3.5 - 5.0 mmol/L 01/15/2017 10:19 AM EDT [facility] Chloride 101 98 - 107 mmol/L 01/15/2017 10:19 AM EDT [facility] Total CO2 29 22 - 29 mmol/L 01/15/2017 10:19 AM EDT [facility] Anion Gap 11 7 - 16 mmol/L 01/15/2017 10:19 AM EDT [facility] Calcium 8.8 8.8 - 10.2 mg/dL 01/15/2017 10:19 AM EDT [facility] Glucose Lvl 110(H) 82 - 100 mg/dL 01/15/2017 10:19 AM [facility] BUN 14 8 - 23 mg/dL 01/15/2017 10:19 AM [facility] Creatinine 1.24 0.67 - 1.30 mg/dL 01/15/2017 10:19 AM [facility] GFR Afr Am 68 mL/min/1.7 3 m2 01/15/2017 10:19 AM [facility] GFR Non Afr Am 59 mL/min/1.7 3 m2 01/15/2017 10:19 AM [facility] Comment: GFR Afr Am and GFR Non Afr Am calculated using CKD-EPI equation. ?? GFR Category ?GFR(mL/min/1.73 m??) ? Kidney Function G1 ?>=90 ?Normal or high G2 ?60-89 ? Mildly decreased G3a ? 45-59 ? Mildly to moderately decreased G3b ? 30-44 ? Moderately to severely decreased G4 ?15-29 ? Severely decreased G5 ?<15 ? Kidney Failure Blood specimen (specimen) VENOUS BLOOD / Unknown Venipuncture / Unknown 01/15/2017 9:54 AM EDT 01/15/2017 9:58 AM EDT us Nader Holder MD CHEMISTRY ORDERABLES Final R esult [facility] [address] [place] [address] * (ABNORMAL) CBC WITH DIFF (01/15/2017 9:54 AM EDT) WBC 3.9(L) 4.0 - 11.0 x10(3)/mcL 01/15/2017 10:53 AM EDT [facility] RBC 4.20(L) 4.30 - 5.81 x10(6)/mcL 01/15/2017 10:53 AM EDT [facility] Hgb 12.5(L) 13.5 - 17.1 gm/dL 01/15/2017 10:53 AM EDT [facility] Hct 37.5(L) 38.9 - 51.6 % 01/15/2017 10:53 AM EDT [facility] MCV 89.2 82.5 - 99.8 fL 01/15/2017 10:53 AM EDT [facility] MCH 29.8 27.0 - 34.3 pg 01/15/2017 10:53 AM EDT [facility] MCHC 33.4 32.1 - 35.3 gm/dL 01/15/2017 10:53 AM EDT [facility] RDW 15.3(H) 11.5 - 15.0 % 01/15/2017 10:53 AM EDT [facility] Platelet 169 144 - 423 x10(3)/mcL 01/15/2017 10:53 AM EDT [facility] MPV 7.6 6.8 - 10.8 fL 01/15/2017 10:53 AM EDT [facility] Blood specimen (specimen) VENOUS BLOOD / Unknown Venipuncture / Unknown 01/15/2017 9:54 AM EDT 01/15/2017 9:58 AM EDT us Nader Holder MD HEMATOLOGY ORDERABLES Final Result [address] [address] * XR LUMBAR SPINE AP AND LATERAL (01/15/2017 9:33 AM EDT) Anatomical Region Laterality Modality L-spine Radiographic Kelsey ging 01/15/2017 9:33 AM EDT Impressions 01/15/2017 9:46 AM EDT Moderate diffuse spondylitic change in the lumbar spine. If there is strong concern for radiculopathy or myelopathy MRI study of choice Narrative 01/15/2017 9:46 AM EDT XR LUMBAR SPINE AP AND LATERAL, ??01/15/2017 9:33 AM CLINICAL HISTORY: ??-BACK PAIN COMPARISON: ??None. PROCEDURE COMMENTS: 3 views lumbar spine per protocol. FINDINGS: ?? Relatively severe degenerative change with prominent anterior flowing osteophytes throughout the lumbar spine seen. There is moderate disc space narrowing throughout the lumbar spine. There are no compression fractures. There is no lytic or destructive lesion. Procedure Note Fantasma Perez MD - 01/15/2017 XR LUMBAR SPINE AP AND LATERAL, 01/15/2017 9:33 AM CLINICAL HISTORY: -BACK PAIN COMPARISON: None. PROCEDURE COMMENTS: 3 views lumbar spine per protocol. FINDINGS: Relatively severe degenerative change with prominent anterior flowing osteophytes throughout the lumbar spine seen. There is moderate discspace narrowing throughout the lumbar spine. There are no compression fractures.There is no lytic or destructive lesion. IMPRESSION: Moderate diffuse spondylitic change in the lumbar spine. If there isstrong concern for radiculopathy or myelopathy MRI study of choice us Nader Holder MD IMG DIAGNOSTIC IMAGING ORDER MONTY Final Result documented in this encounter Visit Diagnoses Diagnosis Acute low back pain without sciatica, unspecified back pain laterality- Primary documented in this encounter Administered Medications Inactive Administered Medications - up to 1 most recent administrations Medication Order MAR Action Action Date Dose Rate Site oxyCODONE-acetaminophen (PERCOCET) 5-325 mg per tablet 1 Tab 1 Tablet, Oral, ONCE, 1 dose, On 01/15/17 at 0845, Maximum adult dose of acetaminophen is 4000 mg from all sources in 24 hours. Given 01/15/2017 8:43 AM EDT 1 Tablet documented in this encounter Active and Recently Administered Medications Times are shown in EDT. Scheduled Medication Order 01/13/2017 01/14/2017 01/15/2017 oxyCODONE-acetaminophen (PERCOCET) 5-325 mg per tablet 1 Tab (COMPLETED) 1 Tablet, Oral, ONCE, 1 dose, On 01/15/17 at 0845, Maximum adult dose of acetaminophen is 4000 mg from all sources in 24 hours. 0843 (Given - Provid er: Randi Jacobson, TAMICA) documented in this encounter Orders Medications Ordered That Cb ht Not Have Been Administered Count Last Ordered Date First Ordered Date oxyCODONE-acetaminophen (PER COCET) 5-325 mg per tablet 1 Tab 1 01/15/2017 Nursing Count Last Ordered Date First Orde red Date NURSING COMMUNICATION 1 01/15/2017 documented in this encounter Care Teams Legal Financial Specialist Relationship Specialty Start Date End Date Kevin Leong Sr., MD [address] [place] [phone] PCP - General Rotor Blade Installer 10/29/13 documented as of this encounter
--- OUTSIDE RECORDS SUMMARY | 2024-02-27 10:44 | XMS_ITS | Encounter Summary ---
Author Organization [facility] Address [facility] [place] [address] Care Team Providers Care Health Economist Name Role Phone Salo Segovia MD, Kevin [place] [facility] Provid er Encounter Details Date Type Department Care Team (Latest Contact Info) Description 06/13/2016 10:06 PM EST - 06/13/2016 11:59 PM EST Hospital Encounter EDG LAB KIKE PROCESSING [facility] [place] [id number] Routine general medical examination at a health care facility (Primary Dx) Discharge Disposition: Home or Self [...] on file documented as of this encounter Medications at Time of Discharge [...] Take by mouth 2 times daily. 8 risperiDONE (RISPERDAL) 4 mg tablet Take [...] Departure Means Destination Home or Self Care documented in this encounter Plan of Treatment Not on file documented as of this encounter Procedures Procedure Name Priority Date/Time Associated Diagnosis Comments BASIC METABOLIC PANEL Routine 06/14/2016 5:50 AM EST Routine general medical examination at a health care facility documented in this encounter Results * (ABNORMAL) BASIC METABOLIC PANEL (06/14/2016 5:50 AM EST) Sodium 142 136 - 145 mmol/L [facility] Potassium 3.7 3.5 - 5.0 mmol/L [facility] Chloride 103 98 - 107 mmol/L [facility] Total CO2 27 22 - 29 mmol/L [facility] Anion Gap 12 7 - 16 mmol/L [facility] Calcium 8.3(L) 8.8 - 10.2 mg/dL [facility] Glucose Lvl 95 82 - 100 mg/dL [facility] BUN 14 8 - 23 mg/dL [facility] Creatinine 1.50(H) 0.67 - 1.30 mg/dL [facility] GFR Afr Am [facility] GFR Non Afr Am 46 [facility] Blood specimen (specimen) UPPER LIMB STRUCTURE / Unknown 06/14/2016 5:50 AM EST 06/14/2016 6:37 AM EST us [facility] CHEMISTRY ORDERABLES Edited Res ult - Final [facility] [address] [place] [address] documented in this encounter Visit Diagnoses Diagnosis Routine general medical examination at a health care facility- Primary documented in this encounter Care Teams Health Economist Relationship Specialty Start Date End Date Kevin Leong Sr., MD [address] [place] [phone] PCP - General Brand Lead 10/29/13 documented as of this encounter
--- OUTSIDE RECORDS SUMMARY | 2024-02-27 10:44 | XMS_ITS | Encounter Summary ---
Author Organization [facility] Address One [facility] [address] Care Team Providers Care Exhibit Specialist Name Role Phone Salo Segovia MD, Kevin [place] Primary Care Provid er Encounter Details Date Type Department Care Team (Latest Contact Info) Description 06/08/2016 9:26 PM EST - 06/08/2016 11:59 PM EST Hospital Encounter EDG LAB KIKE PROCESSING One [facility] [place] [id number] Routine general medical examination [...] Take 2.5 mg by mouth daily. 8 cephALEXin (KEFLEX) 500 mg Oral Capsule Take 1 Cap by mouth every 12 hours for 7 days. 14 Cap 06/04/2016 7 Donepezil (ARICEPT) 23 mg Oral Tablet Take [...] Procedure Name Priority Date/Time Associated Diagnosis Comments MAGNESIUM LEVEL Routine 06/09/2016 6:01 AM EST Routine general medical examination at a health care facility RENAL FUNCTION PANEL Routine 06/09/2016 6:01 AM EST Routine general medical examination at a health care facility documented in this encounter Results * (ABNORMAL) RENAL FUNCTION PANEL (06/09/2016 6:01 AM EST) Sodium 145 136 - 145 mmol/L [facility] Potassium 4.0 3.5 - 5.0 mmol/L [facility] Chloride 104 98 - 107 mmol/L [facility] Total CO2 27 22 - 29 mmol/L [facility] Anion Gap 14 7 - 16 mmol/L [facility] Calcium 8.5(L) 8.8 - 10.2 mg/dL [facility] Glucose Lvl 98 82 - 100 mg/dL [facility] BUN 12 8 - 23 mg/dL [facility] Creatinine 1.37(H) 0.67 - 1.30 mg/dL [facility] Albumin 3.2 3.2 - 4.6 gm/dL [facility] Phosphorus 3.1 2.5 - 4.5 mg/dL [facility] GFR Afr Am >[facility] GFR Non Afr Am [address] [facility] Blood specimen (specimen) UPPER LIMB STRUCTURE / Unknown 06/09/2016 6:01 AM EST 06/09/2016 6:51 AM EST us [facility] CHEMISTRY ORDERABLES Edited Res ult - Final Performing Organization Address [facility] Co de Phone Number [facility] [address] [place] [address] * MAGNESIUM LEVEL (06/09/2016 6:01 AM EST) Magnesium 2.3 1.6 - 2.4 mg/dL [facility] Blood specimen (specimen) UPPER LIMB STRUCTURE / Unknown 06/09/2016 6:01 AM EST 06/09/2016 6:51 AM EST us [facility] CHEMISTRY ORDERABLES Final Resu lt Performing Organization Address [facility] de Phone Number [facility] [address] [place] [address] documented in this encounter Visit Diagnoses Diagnosis Routine general medical examination at a health care facility- Primary documented in this encounter Care Teams Exhibit Specialist Relationship Specialty Start Date End Date Kevin Leong Sr., MD [address] [place], [place] [phone] PCP - General 5Th Grade Teacher 10/29/13 documented as of this encounter
--- OUTSIDE RECORDS SUMMARY | 2024-02-27 10:44 | XMS_ITS | Encounter Summary ---
Author Organization [place] [address] Care Team Providers Care Dial Mounter Name Role Phone Salo Segovia MD, Kevin Hollingsworth Primary Care Provid er Encounter Details Date Type Department Care Team (Late st Contact Info) Description 06/07/2016 External Contact Adult Med [address] [place] [address] Aundrea Kimble MD [address] [phone] KARINA (acute kidney injury) (HCC); Acute systolic congestive heart failure (HCC); Volume depletion Social History Tobacco Use Types Packs/Day Years [...] on file documented as of this encounter H&P Notes * Aundrea Kimble MD - 06/07/2016 11:59 PM EST Pt.seen and evaluated on 06/07/2016 at [facility]. Documented on paper chart there. documented in this encounter Plan of Treatment Not on file documented as of this encounter Visit Diagnoses Diagnosis KARINA (acute kidney injury) (HCC) Acute kidney failure, unspecified Acute systolic congestive heart failure (HCC) Acute systolic heart failure Volume depletion Volume depletion, unspecified documented in this encounter Care Teams Dial Mounter Relationship Specialty Start Date End Date Kevin Leong Sr., MD [address] [place] [phone] PCP - General Mri Special Procedures Technologist 10/29/13 documented as of this encounter
--- OUTSIDE RECORDS SUMMARY | 2024-02-27 10:44 | XMS_ITS | Encounter Summary ---
Author Organization [facility] Address One [facility] [place] [address] Care Team Providers Care Banquet Line Cook Name Role Phone Salo Segovia MD, Kevin Comer Primary Care Provid er Encounter Details Date Type Department Care Team (Latest Contact Info) Description 06/05/2016 4:07 PM EST - 06/05/2016 11:59 PM EST Hospital Encounter EDG LAB [...] Associated Diagnosis Comments BASIC METABOLIC PANEL Routine 06/06/2016 6:46 AM EST Routine general medical examination at a health care facility CBC Routine 06/06/2016 6:46 AM EST Routine general medical examination at a health care facility documented in this encounter Results * (ABNORMAL) BASIC METABOLIC PANEL (06/06/2016 6:46 AM EST) Sodium 144 136 - 145 mmol/L [facility] Potassium 3.9 3.5 - 5.0 mmol/L [facility] Chloride 108(H) 98 - 107 mmol/L [facility] Total CO2 23 22 - 29 mmol/L [facility] Anion Gap 13 7 - 16 mmol/L [facility] Calcium 8.3(L) 8.8 - 10.2 mg/dL [facility] Glucose Lvl 95 82 - 100 mg/dL [facility] BUN 14 8 - 23 mg/dL [facility] Creatinine 1.52(H) 0.67 - 1.30 mg/dL [facility] GFR Non Afr Am [address] [facility] Blood specimen (specimen) UPPER LIMB STRUCTURE / Unknown 06/06/2016 6:46 AM EST 06/06/2016 7:23 AM EST [facility] CHEMISTRY ORDERABLES Edited Res ult - Final [facility] [address] [place] [address] * (ABNORMAL) CBC (06/06/2016 6:46 AM EST) WBC 4.1 4.0 - 11.0 x10(3)/mcL [facility] RBC 3.78(L) 4.30 - 5.81 x10(6)/mcL [facility] Hgb 11.8(L) 13.5 - 17.1 gm/dL [facility] Hct 34.6(L) 38.9 - 51.6 % [facility] MCV 91.5 82.5 - 99.8 fL [facility] MCH 31.2 27.0 - 34.3 pg [facility] MCHC 34.1 32.1 - 35.3 gm/dL [facility] RDW 13.4 11.5 - 15.0 % [facility] Platelet 180 144 - 423 x10(3)/mcL [facility] MPV 7.6 6.8 - 10.8 fL [facility] Blood specimen (specimen) UPPER LIMB STRUCTURE / Unknown 06/06/2016 6:46 AM EST 06/06/2016 7:23 AM EST [facility] HEMATOLOGY ORDERABLES Final Res ult [facility] [address] [place] [address] documented in this encounter Visit Diagnoses Diagnosis Routine general medical examination at a health care facility- Primary documented in this encounter Care Teams Banquet Line Cook Relationship Specialty Start Date End Date Kevin Leong Sr., MD [address] [place] [phone] PCP - General Warning Analyst 10/29/13 documented as of this encounter
--- OUTSIDE RECORDS SUMMARY | 2024-02-27 10:44 | XMS_ITS | Encounter Summary ---
Author Organization [facility] Address One [facility] [place] [address] Care Team Providers Care Biophysics Professor Name Role Phone Salo Segovia MD, Kevin [place] Primary Care Provid er Encounter Details Date Type Department Care Team (Latest Contact Info) Description 06/07/2016 10:07 PM EST - 06/07/2016 11:59 PM EST Hospital Encounter EDG LAB KIKE PROCESSING One [facility] [place] [id number] Routine general medical examination [...] Procedure Name Priority Date/Time Associated Diagnosis Comments NT PROBNP Routine 06/08/2016 6:30 AM EST Routine general medical examination at a health care facility RENAL FUNCTION PANEL Routine 06/08/2016 6:30 AM EST Routine general medical examination at a health care facility EOSINOPHIL URINE Routine 06/07/2016 11:4 5 PM EST Routine general medical examination at a health care facility UREA NITROGEN LEVEL URINE Routine 06/07/2016 11:45 PM EST Routine general medical examination at a health care facility SODIUM LEVEL URINE Routine 06/07/2016 11 :45 PM EST Routine general medical examination at a health care facility PROTEIN LEVEL URINE Routine 06/07/2016 1 1:45 PM EST Routine general medical examination at a health care facility CREATININE LEVEL URINE Routine 06/07/2016 11:45 PM EST Routine general medical examination at a [facility] care facility URINALYSIS Routine 06/07/2016 11:45 PM EST Routine general medical examination at a [facility] care facility documented in this encounter Results * (ABNORMAL) RENAL FUNCTION PANEL (06/08/2016 6:30 AM EST) Sodium 141 136 - 145 mmol/L [facility] Potassium 4.2 3.5 - 5.0 mmol/L [facility] Chloride 104 98 - 107 mmol/L [facility] Total CO2 26 22 - 29 mmol/L [facility] Anion Gap 11 7 - 16 mmol/L [facility] Calcium 8.8 8.8 - 10.2 mg/dL [facility] Glucose Lvl 96 82 - 100 mg/dL [facility] BUN 14 8 - 23 mg/dL [facility] Creatinine 1.44(H) 0.67 - 1.30 mg/dL [facility] Albumin 3.2 3.2 - 4.6 gm/dL [facility] Phosphorus 3.3 2.5 - 4.5 mg/dL [facility] GFR Afr Am 59 [facility] GFR Non Afr Am 48 [facility] Blood specimen (specimen) UPPER LIMB STRUCTURE / Unknown 06/08/2016 6:30 AM EST 06/08/2016 7:[address] [facility] CHEMISTRY ORDERABLES Edited Res ult - Final [facility] [address] [place] [address] * (ABNORMAL) NT PROBNP (06/08/2016 6:30 AM EST) NT Pro-BNP 572(H) <=319 pg/mL [facility] Comment: An NT pro-BNP level less than 300 pg/mL in any patient, regardless of age, Effectively rules out acute CHF with a 99% negative predictive value. Blood specimen (specimen) UPPER LIMB STRUCTURE / Unknown 06/08/2016 6:30 AM EST 06/08/2016 7:53 AM EST [facility] CHEMISTRY ORDERABLES Final Resu lt Performing Organization Address [facility] de Phone Number [facility] [address] [place] [address] * PROTEIN LEVEL URINE (06/07/2016 11:45 PM EST) Urine Protein 21.0 mg/dL [facility] Urine specimen (specimen) 06/07/2016 11:45 PM EST 06/08/2016 8:50 AM EST [facility] URINE ORDERABLES Final Result Performing Organization Address [facility] de Phone Number [facility] [address] [place] [address] * UREA NITROGEN LEVEL URINE (06/07/2016 11:45 PM EST) Urine Urea 478.2 mg/dL [facility] Urine specimen (specimen) 06/07/2016 11:45 PM EST 06/08/2016 8:50 AM EST [facility] URINE ORDERABLES Final Result Performing Organization Address [facility] de Phone Number [facility] [address] [place] [address] * EOSINOPHIL URINE (06/07/2016 11:45 PM EST) Urine Eos 0 % [facility] Urine specimen (specimen) 06/07/2016 11:45 PM EST 06/08/2016 8:50 AM EST [facility] URINE ORDERABLES Final Result Performing Organization Address [facility] de Phone Number [facility] [address] [place] [address] * (ABNORMAL) URINALYSIS (06/07/2016 11:45 PM EST) UA Color Yellow [facility] UA Appear Clear Clear [facility] UA Glucose Negative Negative [facility] Ketones Negative Negative [facility] UA Blood Moderate(A) Negative [facility] UA pH 5.0 4.8 - 8.0 [facility] Comment:Reference range ghazala d for random specimens only. UA Protein Negative Negative [facility] UA Urobilinogen Normal <=1 mg/dl [facility] UA Nitrite Negative Negative [facility] UA Leuk Est Negative Negative [facility] UA Spec Grav 1.010 1.001 - 1.035 [facility] Comment:Reference range ghazala d for random specimens only. UA WBC 3 0 - 4 /HPF [facility] UA RBC 4(H) 0 - 3 /HPF [facility] UA Squam Epi Few [facility] UA Mucus Trace [facility] UA Bacteria 1+(A) [facility] UA Uric Ac Zoraida Few [facility] Urine specimen (specimen) 06/07/2016 11:45 PM EST 06/08/2016 8:50 AM EST [facility] URINE ORDERABLES Final Result Performing Organization Address [facility] [place] [address] * CREATININE LEVEL URINE (06/07/2016 11:45 PM EST) Urine Creatinine 89.0 mg/dL [facility] Urine specimen (specimen) 06/07/2016 11:45 PM EST 06/08/2016 8:50 AM EST [facility] URINE ORDERABLES Final Result Performing Organization Address [facility] [place] [address] * SODIUM LEVEL URINE (06/07/2016 11:45 PM EST) Urine Sodium 20 mmol/L [facility] Urine specimen (specimen) 06/07/2016 11:45 PM EST 06/08/2016 8:50 AM EST [facility] URINE ORDERABLES Final Result [facility] [address] [place] [address] documented in this encounter Visit Diagnoses Diagnosis Routine general medical examination at a health care facility- Primary documented in this encounter Care Teams Biophysics Professor Relationship Specialty Start Date End Date Kevin Leong Sr., MD [address] [place] [phone] PCP - General Pocket Assembler 10/29/13 documented as of this encounter
--- OUTSIDE RECORDS SUMMARY | 2024-02-27 10:44 | XMS_ITS | Encounter Summary ---
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 Pt has diarrhea x4 days. Today got up from his chair and had a syncopal episode. ems report pt was pale and diarhoretic on arrival to the scene. * Auth/Cert/Inpt Specialty Diagnoses / Procedures Referred By Roni t Referred To Contact Critical Care Medicine Diagnoses Dehydration KARINA (acute kidney injury) (HCC) Acute renal failure, unspecified acute renal failure type (HCC) Syncope, unspecified syncope type Diarrhea, unspecified type EDG 6D TCU [facility] [place] [address] Phone: tel: fax: Referral ID Status Reason Start Date Expiration Date Visits Re quested Visits Authorized [id number] 06/01/2016 06/01/2017 1 1 Encounter Details Date Type Department Care Team (Late st Contact Info) Description 05/31/2016 8:36 AM EST - 06/05/2016 2:41 PM EST Hospital Encounter EDG 6D TCU [facility] [place] [id number] Betzy Burns MD [address] [place] [address] [place] [id number] Elena Zmaora MD [address] [place] [id number] Syncope, unspecified syncope type (Primary Dx); Diarrhea, unspecified type; Dehydration; Acute renal failure, unspecified acute renal failure type Discharge Disposition: Rehab Facility Social History Tobacco Use Types Packs/Day [...] Sign Reading Time Taken Comments Blood Pressure 139/70 06/05/2016 11:26 AM EST Pulse 61 06/05/2016 11:26 AM EST Temperature 36.5 ??C (97.7 ??F) 06/05/2016 7:54 AM ES T Respiratory Rate 18 06/05/2016 11:26 AM EST Oxygen Saturation 97% 06/05/2016 7:54 AM EST Inhaled Oxygen Concentration - - Weight 122.2 kg (269 lb 8 oz) 06/05/2016 3:21 AM EST Height 182.9 cm (6') 05/31/2016 5:21 PM EST Body Mass Index 36.55 05/31/2016 5:21 PM EST documented in this encounter Discharge Summaries * Fantasma Dutton MD - 06/05/2016 11:53 AM EST Physician Discharge Summary Fantasma Dutton MD & [facility] Family Medicine Residency Team I and members of the team (including upper level resident and attendings) have participated in the development of this encounter and evaluation. PATIENT: Renan Goncalves : 1945 Admit Date: 05/31/2016 Discharge date and time: 06/05/2016 Hospital Day: LOS: 5 days PCP: Kevin Leong Sr., MD Discharge Physician: Fantasma Dutton MD C/S: Code Status Full Code Discharge Special Instructions and Medication Instructions Special Discharge Instructions: (Indicate any significant changes in Medications, Follow-Up Lab. Instructions, Out Patient Testing, Home Health, Home Physical Therapy, Home Oxygen or Other Issues) -Activity: change activity as tolerated -Diet: REGULAR DIET Physician/Provider Follow-up: Kevin Leong Sr., MD [address] [facility] [id number] In 3 days [place] [id number] Kevin Leong Sr., MD [address] [facility] [id number] In 2 weeks Medication List: Medication List START taking these medications cephALEXin 500 mg Cap Dose: 500 mg Qty: 14 Cap Refills: 0 Commonly known as: KEFLEX 500 mg, Oral, Q12H OMKAR CONTINUE taking these medications acetaminophen 325 mg Tab Dose: 650 mg Refills: 0 Commonly known as: TYLENOL amLODIPine 2.5 mg Tab Dose: 2.5 mg Refills: 0 Commonly known as: NORVASC aspirin 81 mg Chew Dose: 81 mg Refills: 0 carvedilol 25 mg Tab Dose: 25 mg Refills: 0 Commonly known as: COREG Donepezil 23 mg Tab Refills: 0 Commonly known as: ARICEPT FLUoxetine 40 mg Cap Dose: 40 mg Refills: 0 Commonly known as: PROzac guaiFENesin-dextromethorphan 10-100 mg/5 mL Syrp Dose: 10 mL Refills: 0 Commonly known as: ROBITUSSIN DM haloperidol 5 mg Tab Dose: 5 mg Refills: 0 Commonly known as: HALDOL loperamide 2 mg Cap Refills: 0 Commonly known as: IMODIUM QUEtiapine 25 mg Tab Refills: 0 Commonly known as: SEROquel risperiDONE 4 mg Tab Dose: 4 mg Refills: 0 Commonly known as: RisperDAL simvastatin 10 mg Tab Dose: 10 mg Refills: 0 Commonly known as: ZOCOR spironolactone 25 mg Tab Dose: 12.5 mg Qty: 15 Tab Refills: 3 Commonly known as: ALDACTONE 12.5 mg, Oral, Daily terazosin 2 mg Cap Dose: 2 mg Refills: 0 Commonly known as: HYTRIN valsartan 320 mg Tab Dose: 320 mg Refills: 0 Commonly known as: DIOVAN vitamin D 50,000 unit Cap Refills: 0 Generic drug: ergocalciferol STOP taking these medications fUROsemide 40 mg Tab Commonly known as: LASix potassium chloride 10 mEq Cpsr Commonly known as: MICRO-K Where to Get Your Medications Information about where to get these medications is not yet available ! Ask your nurse or doctor about these medications ??? cephALEXin 500 mg Cap Immunization Status Immunizations: Immunization History Administered Date(s) Administered ??? Influenza Patient Reported 01/27/2015 ??? Influenza Vaccine, Unspecified Formulation 01/18/2016 ??? Pneumococcal Conjugate Vaccine 13 Valent 06/01/2016 ??? Td (adult), preservative free 10/29/2013 Brief Hospital Course and Hospital Problem List Brief Hospital Summary: (Free Type) Renan Goncalves is a 71 yo male with hx of schizophrenia, MDD, HTN, and CHF who presented to the ED after possible syncopal episode. He was dehydrated (with KARINA) secondary to perfuse diarrhea on admission. He was resuscitated with fluids and the diarrhea decreased over the remainder of his admission. He was no longer having a diarrhea at time of discharge. His KARINA resolved. He did not have any syncopal episodes during his admission, the episode at his [facility] was likely secondary to orthostatic dehydration from his diarrhea. He was discharge back to [facility] with instructions to follow up with his PCP in 2 weeks. Discharge Exam Vitals: 06/05/16 1126 BP: 139/70 Pulse: 61 Resp: 18 Temp: 97.7F SpO2: 97% Physical Exam Constitutional: He is oriented to person, place, and time. Cardiovascular: Normal rate and regular rhythm. Pulmonary/Chest: Effort normal and breath sounds normal. He has no wheezes. He has no rales. Abdominal: He exhibits no distension. There is no tenderness. There is no rebound. Neurological: He is alert and oriented to person, place, and time. No cranial nerve deficit. Coordination normal. Discharge Diagnoses: Active Hospital Problems Diagnosis ??? *Syncope ??? Acute cystitis with hematuria ??? Moderate episode of recurrent major depressive disorder (HCC) ??? Perineal rash in male ??? KARINA (acute kidney injury) (HCC) ??? Diarrhea in adult patient ??? Hypovolemia due to dehydration ??? Paranoid schizophrenia (HCC) ??? Essential hypertension ??? Morbid obesity due to excess calories (HCC) ??? Combined systolic and diastolic congestive heart failure, NYHA class 4 (HCC) ??? MDD (major depressive disorder) Recent Labs / Imaging RENAL & METABOLIC DATA Recent Labs 05/31/16 1132 06/03/16 0515 06/04/16 0923 06/05/16 1030 GLU -- < > 126* 115* 113* BUN -- < > 20 10 12 CREATININE -- < > 1.77* 1.32* 1.28 NA -- < > 147* 143 141 K -- < > 4.3 5.1* 4.6 CL -- < > 119* 113* 107 CO2 -- < > 14* 20* 23 CALCIUM -- < > 7.6* 8.1* 8.2* MG 2.3 -- -- -- -- PHOS 3.7 -- -- -- -- GFRAFRAM -- < > 46 >60 >60 < > = values in this interval not displayed. Recent Labs 05/31/16 1603 SPECGRAV 1.016 UAPROTEIN 100 mg/dl* BLOODU Large* NITRITE Negative LEUKOCYTESUR Large* WBCUA >182* RBCUA 124* HEMATOLOGY & COAGULATION DATA Recent Labs 06/03/16 0515 06/04/16 0923 06/05/16 1030 WBC 3.1* 3.6* 3.6* HGB 11.6* 11.8* 12.7* HCT 34.6* 35.1* 38.2* PLT 166 157 171 Recent Labs 05/31/16 0918 INR 1.03 INFECTION DATA Temp (24hrs), Av ??F (36.7 ??C), Min:97.7 ??F (36.5 ??C), Max:98.3 ??F (36.8 ??C) Lab Results Component Value Date RBCUA 124 (H) 05/31/2016 WBCUA >182 (H) 05/31/2016 GI & NUTRITION DATA Lab Results Component Value Date PROT 7.6 05/31/2016 LIPASE 40 05/31/2016 ALT 19 05/31/2016 AST 19 05/31/2016 ALKPHOS 60 05/31/2016 LABBILI 0.4 05/31/2016 BILIDIR <0.2 02/27/2015 CARDIOLOGY DATA No results found for: CKTOTAL, CKMB, CKMBINDEX, TROPONINI No results found for: CHOLESTEROL, TRIG, HDL, LDLDIRECT, LDLCALC PULMONARY DATA O2 Device: Room Air SpO2 Readings from Last 2 Encounters: 06/05/16 97% 03/07/15 97% IMAGING DATA Xr Abdomen Ap Result Date: 06/03/2016 06/03/2016 time 11:36 AM EXAM: Single view abdomen. HISTORY: Diarrhea possible bowel obstruction. COMPARISON: None FINDINGS: The bowel gas pattern is nonspecific. There is no obvious ileus or obstructive pattern. The large and small bowel loops are nondistended. There is no increased stool pattern. There is no increased stool in the rectal region. No evidence of ileus or obstructive pattern. No increased stool pattern. Xr Chest Ap Portable Result Date: 05/31/2016 XR CHEST AP PORTABLE 05/31/2016 9:22 AM CLINICAL: -LOSS OF CONSCIOUSNESS COMPARISON: 02/27/2015 time11:49 AM FINDINGS: The cardiopericardial silhouette is mildly enlarged. There is some ill definition of pulmonary vessels which may indicate early pulmonary edema. No focal areas of consolidation. Questionable mild CHF. No definite areas of focal consolidation. Ec Echocardiogram Complete W Doppler And Color Flow Mapping CONCLUSIONS Poor quality study. Normal LV size and function. LVEF 55-60%. Grade 1 diastolic dysfunction. Normal right ventricular size and function. Trace mitral regurgitation. Trace tricuspid regurgitation. Valves are not well visualized Ek Ekg 12 Lead Result Date: 05/31/2016 NOTICE: Preliminary tracing available for review; Final Interpretation by physician to follow. Stationary ECG Study [facility] Interpretive Statements SINUS RHYTHM WITH FIRST DEGREE AV BLOCK Electronically Signed On 05-31-2016 16:57:07 EST by MD Fantasma Beal MD 06/05/2016 Cosigned by Elena Zamora MD at 06/05/2016 6:02 PM EST Associated attestation - Elena Zamora MD - 06/05/2016 6:02 PM EST I have reviewed the resident physician's history and physical findings. These findings, diagnoses and treatment plans have been jointly developed. I concur with orders as documented by resident physician. * Carline Fair MD - 06/04/2016 1:26 PM EST [facility] Discharge Summary Patient Name: Renan Goncalves : 1945 Admit Date: 05/31/2016 Discharge Date: 06/04/2016 Admitting Physician: Elena Zamora MD Discharge Physician: Carline Fair MD Reason for Hospitalization: Active Hospital Problems Acute cystitis with hematuria Moderate episode of recurrent major depressive disorder (HCC) Perineal rash in male *Syncope KARINA (acute kidney injury) (HCC) Diarrhea in adult patient Hypovolemia due to dehydration Paranoid schizophrenia (HCC) Essential hypertension Morbid obesity due to excess calories (HCC) Combined systolic and diastolic congestive heart failure, NYHA class 4 (HCC) MDD (major depressive disorder) Hospital Course/Significant Findings: Mr. Goncalves is a 71M who presented with syncope 2/2 hypotension like a result of copious diarrhea that necessitated rectal tube placement. His ACEI and lasix were held d/t an KARINA. All work up for his diarrhea was negative and his diarrhea improved spontaneously over a 4 day period. He is now stable for discharge back to [facility]. Of note, he is to complete a 10 day course of keflex for a UTI. His ARB Admitted with syncope 2/2 hypotension - Diarrhea improving, IVF - SR with 1st degree AVB on EKG, EF 55-60 - Restarted BB and norvasc d/t improving BPs yesterday ?? Diarrhea- Improving, etiology unclear - Negative C.diff, OP, Stool Cx, fecal heme - 700ml output yesterday, down from 2500- Rectal tube in place - Still receiving D51/2NS at 100ml/hr ?? KARINA 2/2 hypovolemia - Improving down from 2.5 to 1.7 yesterday. Today's labs pending - ACEI held ?? UTI- Sensitive Klebsiella - Keflex ?? HFpEF - Stable EF on Echo 55-60% - Continue atorvastatin, ASA, holding BB and ACEi due to hypotension and KARINA ?? Schizophrenia - Continue home regimen of risperidone, quetiapine, donepezil - Holding PRN haldol unless needed for agitation ? Major depression - Continue home fluoxetine ?? Procedures Performed: None Consults: Discharge Exam: Visit Vitals ??? BP 149/54 (BP Location: Left arm, Patient Position: Semi Fowlers) ??? Pulse 58 ??? Temp 98 ??F (36.7 ??C) (Oral) ??? Resp 18 ??? Ht 6' (1.829 m) ??? Wt 271 lb 5 oz (123.1 kg) ??? SpO2 92% ??? BMI 36.8 kg/m2 Head: Normocephalic, without obvious abnormality, atraumatic Lungs: clear to auscultation bilaterally Chest wall: no tenderness Heart: regular rate and rhythm, S1, S2 normal, no murmur, click, rub or gallop Abdomen: soft, non-tender; bowel sounds normal; no masses, no organomegaly Extremities: extremities normal, atraumatic, no cyanosis or edema Skin: Skin color, texture, turgor normal. No rashes or lesions Discharge Diagnoses: Syncope Condition at Discharge: good Disposition: [facility] Discharge Medications:: Medication List START taking these medications cephALEXin 500 mg Cap Dose: 500 mg Qty: 14 Cap Refills: 0 Commonly known as: KEFLEX 500 mg, Oral, Q12H OMKAR CONTINUE taking these medications acetaminophen 325 mg Tab Dose: 650 mg Refills: 0 Commonly known as: TYLENOL amLODIPine 2.5 mg Tab Dose: 2.5 mg Refills: 0 Commonly known as: NORVASC aspirin 81 mg Chew Dose: 81 mg Refills: 0 carvedilol 25 mg Tab Dose: 25 mg Refills: 0 Commonly known as: COREG Donepezil 23 mg Tab Refills: 0 Commonly known as: ARICEPT FLUoxetine 40 mg Cap Dose: 40 mg Refills: 0 Commonly known as: PROzac guaiFENesin-dextromethorphan 10-100 mg/5 mL Syrp Dose: 10 mL Refills: 0 Commonly known as: ROBITUSSIN DM haloperidol 5 mg Tab Dose: 5 mg Refills: 0 Commonly known as: HALDOL loperamide 2 mg Cap Refills: 0 Commonly known as: IMODIUM QUEtiapine 25 mg Tab Refills: 0 Commonly known as: SEROquel risperiDONE 4 mg Tab Dose: 4 mg Refills: 0 Commonly known as: RisperDAL simvastatin 10 mg Tab Dose: 10 mg Refills: 0 Commonly known as: ZOCOR spironolactone 25 mg Tab Dose: 12.5 mg Qty: 15 Tab Refills: 3 Commonly known as: ALDACTONE 12.5 mg, Oral, Daily terazosin 2 mg Cap Dose: 2 mg Refills: 0 Commonly known as: HYTRIN valsartan 320 mg Tab Dose: 320 mg Refills: 0 Commonly known as: DIOVAN vitamin D 50,000 unit Cap Refills: 0 Generic drug: ergocalciferol STOP taking these medications fUROsemide 40 mg Tab Commonly known as: LASix potassium chloride 10 mEq Cpsr Commonly known as: MICRO-K Where to Get Your Medications Information about where to get these medications is not yet available ! Ask your nurse or doctor about these medications ??? cephALEXin 500 mg Cap Follow Up: Kevin Leong Sr., [address] [place] [id number] In 3 days Signed: Carline Fair MD 06/04/2016 1:35 PM Cosigned by Elena Zamora MD at 06/04/2016 4:21 PM EST documented in this encounter Discharge Instructions * Discharge Instructions* Jo Youssef RN - 06/05/2016 1:26 PM EST Images from the original note were not included. Heart Failure Heart failure is a condition in which the heart has trouble pumping blood. This means your heart does not pump blood efficiently for your body to work well. In some cases of heart failure, fluid may back up into your lungs or you may have swelling (edema) in your lower legs. Heart failure is usually a long-term (chronic) condition. It is important for you to take good care of yourself and follow your health care provider's treatment plan. CAUSES Some health conditions can cause heart failure. Those health conditions include: ?? High blood pressure (hypertension). Hypertension causes the heart muscle to work harder than normal. When pressure in the blood vessels is high, the heart needs to pump (contract) with more force in order to circulate blood throughout the body. High blood pressure eventually causes the heart to become stiff and weak. ?? Coronary artery disease (CAD). CAD is the buildup of cholesterol and fat (plaque) in the arteries of the heart. The blockage in the arteries deprives the heart muscle of oxygen and blood. This cancause chest pain and may lead to a heart attack. High blood pressure can also contribute to CAD. ?? Heart attack (myocardial infarction). A heart attack occurs when one or more arteries in the heart become blocked. The loss of oxygen damages the muscle tissue of the heart. When this happens, part of the heart muscle dies. The injured tissue does not contract as well and weakens the heart's ability to pump blood. ?? Abnormal heart valves. When the heart valves do not open and close properly, it can cause heart failure. This makes the heart muscle pump harder to keep the blood flowing. ?? Heart muscle disease (cardiomyopathy or myocarditis). Heart muscle disease is damage to the heart muscle from a variety of causes. These can include drug or alcohol abuse, infections, or unknown reasons. These can increase the risk of heart failure. ?? Lung disease. Lung disease makes the heart work harder because the lungs do not work properly. This can cause a strain on the heart, leading it to fail. ?? Diabetes. Diabetes increases the risk of heart failure. High blood sugar contributes to high fat(lipid) levels in the blood. Diabetes can also cause slow damage to tiny blood vessels that carry important nutrients to the heart muscle. When the heart does not get enough oxygen and food, it can cause the heart to become weak and stiff. This leads to a heart that does not contract efficiently. ?? Other conditions can contribute to heart failure. These include abnormal heart rhythms, thyroid problems, and low blood counts (anemia). Certain unhealthy behaviors can increase the risk of heart failure, including: ?? Being overweight. ?? Smoking or chewing tobacco. ?? Eating foods high in fat and cholesterol. ?? Abusing illicit drugs or alcohol. ?? Lacking physical activity. SYMPTOMS Heart failure symptoms may vary and can be hard to detect. Symptoms may include: ?? Shortness of breath with activity, such as climbing stairs. ?? Persistent cough. ?? Swelling of the feet, ankles, legs, or abdomen. ?? Unexplained weight gain. ?? Difficulty breathing when lying flat (orthopnea). ?? Waking from sleep because of the need to sit up and get more air. ?? Rapid heartbeat. ?? Fatigue and loss of energy. ?? Feeling light-headed, dizzy, or close to fainting. ?? Loss of appetite. ?? Nausea. ?? Increased urination during the night (nocturia). DIAGNOSIS A diagnosis of heart failure is based on your history, symptoms, physical examination, and diagnostic tests. Diagnostic tests for heart failure may include: ?? Echocardiography. ?? Electrocardiography. ?? Chest X-ray. ?? Blood tests. ?? Exercise stress test. ?? Cardiac angiography. ?? Radionuclide scans. TREATMENT Treatment is aimed at managing the symptoms of heart failure. Medicines, behavioral changes, or surgical intervention may be necessary to treat heart failure. ?? Medicines to help treat heart failure may include: Angiotensin-converting enzyme (PAT) inhibitors. This type of medicine blocks the effects of a bloodprotein called angiotensin-converting enzyme. PAT inhibitors relax (dilate) the blood vessels and help lower blood pressure. Angiotensin receptor blockers (ARBs). This type of medicine blocks the actions of a blood protein called angiotensin. Angiotensin receptor blockers dilate the blood vessels and help lower blood pressure. Water pills (diuretics). Diuretics cause the kidneys to remove salt and water from the blood. The extra fluid is removed through urination. This loss of extra fluid lowers the volume of blood the heart pumps. Beta blockers. These prevent the heart from beating too fast and improve heart muscle strength. Digitalis. This increases the force of the heartbeat. ?? Healthy behavior changes include: Obtaining and maintaining a healthy weight. Stopping smoking or chewing tobacco. Eating heart-healthy foods. Limiting or avoiding alcohol. Stopping illicit drug use. Physical activity as directed by your health care provider. ?? Surgical treatment for heart failure may include: A procedure to open blocked arteries, repair damaged heart valves, or remove damaged heart muscle tissue. A pacemaker to improve heart muscle function and control certain abnormal heart rhythms. An internal cardioverter defibrillator to treat certain serious abnormal heart rhythms. A left ventricular assist device (LVAD) to assist the pumping ability of the heart. HOME CARE INSTRUCTIONS ?? Take medicines only as directed by your health care provider. Medicines are important in reducing the workload of your heart, slowing the progression of heart failure, and improving your symptoms. Do not stop taking your medicine unless directed by your health care provider. Do not skip any dose of medicine. Refill your prescriptions before you run out of medicine. Your medicines are needed every day. ?? Engage in moderate physical activity if directed by your health care provider. Moderate physicalactivity can benefit some people. The elderly and people with severe heart failure should consult with a health care provider for physical activity recommendations. ?? Eat heart-healthy foods. Food choices should be free of trans fat and low in saturated fat, cholesterol, and salt (sodium). Healthy choices include fresh or frozen fruits and vegetables, fish, lean meats, legumes, fat-free or low-fat dairy products, and whole grain or high fiber foods. Talk to adietitian to learn more about heart-healthy foods. ?? Limit sodium if directed by your health care provider. Sodium restriction may reduce symptoms ofheart failure in some people. Talk to a dietitian to learn more about heart-healthy seasonings. ?? Use healthy cooking methods. Healthy cooking methods include roasting, grilling, broiling, baking, poaching, steaming, or stir-frying. Talk to a dietitian to learn more about healthy cooking methods. ?? Limit fluids if directed by your health care provider. Fluid restriction may reduce symptoms of heart failure in some people. ?? Weigh yourself every day. Daily weights are important in the early recognition of excess fluid. You should weigh yourself every morning after you urinate and before you eat breakfast. Wear the same amount of clothing each time you weigh yourself. Record your daily weight. Provide your health care provider with your weight record. ?? Monitor and record your blood pressure if directed by your health care provider. ?? Check your pulse if directed by your health care provider. ?? Lose weight if directed by your health care provider. Weight loss may reduce symptoms of heart failure in some people. ?? Stop smoking or chewing tobacco. Nicotine makes your heart work harder by causing your blood vessels to constrict. Do not use nicotine gum or patches before talking to your health care provider. ?? Keep all follow-up visits as directed by your health care provider. This is important. ?? Limit alcohol intake to no more than 1 drink per day for non women and 2 drinks per day for men. One drink equals 12 ounces of beer, 5 ounces of wine, or 1?? ounces of hard liquor. Drinking more than that is harmful to your heart. Tell your health care provider if you drink alcohol several times a week. Talk with your health care provider about whether alcohol is safe for you. If your heart has already been damaged by alcohol or you have severe heart failure, drinking alcohol should be stopped completely. ?? Stop illicit drug use. ?? Stay up-to-date with immunizations. It is especially important to prevent respiratory infectionsthrough current pneumococcal and influenza immunizations. ?? Manage other health conditions such as hypertension, diabetes, thyroid disease, or abnormal heart rhythms as directed by your health care provider. ?? Learn to manage stress. ?? Plan rest periods when fatigued. ?? Learn strategies to manage high temperatures. If the weather is extremely hot: Avoid vigorous physical activity. Use air conditioning or fans or seek a cooler location. Avoid caffeine and alcohol. Wear loose-fitting, lightweight, and light-colored clothing. ?? Learn strategies to manage cold temperatures. If the weather is extremely cold: Avoid vigorous physical activity. Layer clothes. Wear mittens or gloves, a hat, and a scarf when going outside. Avoid alcohol. ?? Obtain ongoing education and support as needed. ?? Participate in or seek rehabilitation as needed to maintain or improve independence and quality of life. SEEK MEDICAL CARE IF: ?? You have a rapid weight gain. ?? You have increasing shortness of breath that is unusual for you. ?? You are unable to participate in your usual physical activities. ?? You tire easily. ?? You cough more than normal, especially with physical activity. ?? You have any or more swelling in areas such as your hands, feet, ankles, or abdomen. ?? You are unable to sleep because it is hard to breathe. ?? You feel like your heart is beating fast (palpitations). ?? You become dizzy or light-headed upon standing up. SEEK IMMEDIATE MEDICAL CARE IF: ?? You have difficulty breathing. ?? There is a change in mental status such as decreased alertness or difficulty with concentration. ?? You have a pain or discomfort in your chest. ?? You have an episode of fainting (syncope). MAKE SURE YOU: ?? Understand these instructions. ?? Will watch your condition. ?? Will get help right away if you are not doing well or get worse. This information is not intended to replace advice given to you by your health care provider. Make sure you discuss any questions you have with your health care provider. Document Released: 03/27/2006 Document Revised: 08/11/2015 Document Reviewed: 04/26/2013 [employer] [place] Interactive Patient Education ??2016 [employer]. Lasix and potassium held at D/C d/t KARINA and hypotension during admission documented in this encounter Medications at Time [...] Refills Last Filled Start Date End Date cephALEXin (KEFLEX) 500 mg Oral Capsule Take 1 Cap by mouth every 12 hours for 7 days. 14 Cap 06/04/2016 06/11/2016 documented in this encounter Discharge Disposition Disposition Code Departure Means Destination Rehab Facility [facility] [place] documented in this encounter Progress Notes * Elena Zamora MD - 06/05/2016 2:41 PM EST I have seen and examined the patient. I have discussed the case with the resident team, and the plan of care has been formulated with the team's input. Subjective: Diarrhea resolved, no new issues, no pain Objective: AVSS. Exam unchanged from yesterday. Labs and imaging reviewed. Labs stable or slightly improved. Assessment/Plan: 71 y.o. yo male with the following issues: Present on Admission: ??? MDD (major depressive disorder) ??? Combined systolic and diastolic congestive heart failure, NYHA class 4 (HCC) ??? Essential hypertension ??? Paranoid schizophrenia (HCC) ??? Syncope ??? KARINA (acute kidney injury) ([facility]) ??? Diarrhea in adult patient ??? Hypovolemia due to dehydration ??? Morbid obesity due to excess calories ([facility]) ??? Acute cystitis with hematuria I agree with the findings and plan of care as per Dr. Dutton's note today. Stable for d/c to [facility] for rehab. * Jo Youssef RN - 06/05/2016 1:54 PM EST Report called to Tatiana Feliciano. VSS, IV removed. Explained discharge plan to pt, verbalized understanding. No further needs at present. Plan is to transport pt via cab to [facility] after 1400. Jo Youssef RN * Hallie Flower RN - 06/05/2016 12:27 PM EST 06/05/16 1226 Assessment Complete Actual Discharge Plan -PATIENT TO DC TO R TODAY. PATIENT HAS NO TRANSPORT, CAB VOUCHER TUBED TO FLOOR. PRIMARY RN WILL GIVE TO PATIENT. * Marianne Tomlinson RN - 06/05/2016 3:35 AM EST VSS, afebrile. No complaints of pain. Patient is alert and oriented but forgetful, sometimes difficult to understand. States he is still having diarrhea, flushes before staff can assess. Buttocks arered and painful, desenex powder and orange top calazime lotion used after bathroom as requested by jonathan gilliam. Resting in the chair at present with alarm on and call light within reach. Will continue tomonitor. Marianne Tomlinson RN * Elena Zamora MD - 06/04/2016 4:18 PM EST I have seen and examined the patient. I have discussed the case with the resident team, and the plan of care has been formulated with the team's input. Subjective: Still having a fair amount of diarrhea, but less voluminous than yesterday and slightlyless liquid; no complaints, denies abd pain Objective: Vital signs reviewed. Stable exam, abd soft, nt, nd, +bs. Rectal tube was in place but appears to have fallen out. Labs and imaging reviewed. Assessment/Plan: 71 y.o. yo male with the following issues: Patient Active Problem List Diagnosis ??? MDD (major depressive disorder) ??? Morbid obesity (HCC) ??? Medication monitoring encounter ??? Combined systolic and diastolic congestive heart failure, NYHA class 4 (HCC) ??? Acute right-sided CHF (congestive heart failure) (HCC) ??? Bilateral lower extremity edema ??? Morbid obesity due to excess calories (HCC) ??? Essential hypertension ??? Paranoid schizophrenia (HCC) ??? Syncope ??? KARINA (acute kidney injury) (HCC) ??? Diarrhea in adult patient ??? Hypovolemia due to dehydration ??? Acute cystitis with hematuria ??? Moderate episode of recurrent major depressive disorder (HCC) ??? Perineal rash in male KARINA much improved, pt's Cr at or close to suspected baseline. I agree with the findings and plan of care as per Dr. Fair's note today. * Jo Youssef RN - 06/04/2016 4:13 PM EST PT recommend ST skilled PT for pt. Spoke with CC regarding discharge plan. Pt willing to go to rehab at d/c. Discharge physician notified of discharge status. Jo Youssef RN * Hallie Flower RN - 06/04/2016 3:57 PM EST 06/04/16 1556 Assessment Complete Actual Discharge Plan [id number]-UNABLE TO REACH DR KEENE, PATIENT CAN BE TRANSFERRED ON 06-05 AT 2PM PER [email or web address]@R. * Hallie Flower RN - 06/04/2016 3:22 PM EST 06/04/16 1520 Assessment Complete Actual Discharge Plan [id number]-SU-PATIENT ACCEPTED BY [facility]. SPOKE WITH ENRIQUE, SHE HAS TEXTED DR KEENE TO SEE IF PATIENT CAB BE ADM THIS AFTERNOON. IF HES NOT AVAILABLE, CAN BE TRANSFERRED ITOMORROW. AWAITING CALL BACK. * Lia Bazzi, PT - 06/03/2016 4:17 PM EST 06/03/16 1609 PT Subjective Note Type Evaluation Discharge Information Evaluation to serve as discharge summary if no further treatment provided before the facility discharge Admitting Diagnosis Pt came in with KARINA, dehydration, ARF, syncope, diarrhea Past Med Hx Dep, obese, CHF, HTN, schizophrenia, pneumonia, hd sx Pain Screening PT/OT Patient Currently in Pain Denies Cognition Overall Cognitive Status Needs continued assessment Arousal/Alertness Appropriate responses to stimuli Attention Span Appears intact Orientation Level Pleasant and Cooperative;Oriented to person;Oriented to place Following Commands Follows all commands and directions without difficulty Home Living/Prior Function Type of Home Assisted Living ([facility]) Home Equipment 2 wheel walker Level of Assistance Independent with ADLs ;Independent with functional transfers;Ambulatory in home Lives With Alone Observation Presentation Patient resting in bed Observation IV;Johnson Catheter;Catalyst Recovery Operator;Rectal tube UE Assessment LUE Assessment X Additional Comments shoulder 4 RUE Assessment X RUE Additional Comments shoulder 2+ LE Assessment LLE Assessment X Additional Comments HF 4 RLE Assessment X Additional Comments HF 4 Bed Mobility Rolling Modified independent (device) Supine to Sit Modified independent (device);With verbal cues;Head of bed slightly elevated Transfers Sit to Stand Stand by assist Stand to Sit Stand by assist Bed to/from chair Stand by assist (RW) Gait PT Gait With verbal cues;Contact guard assist Gait Distance (Feet) 60 Feet Assistive Device 2 Wheel walker Pattern Slow suzi;Shuffle;Flexed posture Additional Comments mildly unsteady with turns but no LOB AM PAC: How much help from another person does the patient currently need... turning from your back to your side while in a flat bed without using bedrails? 3 moving from lying on your back to sitting on the side of a flat bed without using bedrails? 3 moving to and from a bed to a chair? 3 standing up from a chair using your arms (e.g. wheelchair, or bedside chair)? 3 need to walk in hospital room? 3 climbing 3-5 steps with a railing? 3 AM PAC: BASIC MOBILITY SCORING AM PAC Moblity Raw Score 18 AM PAC Mobility CMS 0-100% Functional Percentage 40.47 AM PAC Mobility CMS G Code Modifier CK PT G-Codes Functional Assessment Tool Used [facility] Score 18 Functional Limitation Mobility: Walking and moving around Mobility: Walking and Moving Around Current Status (G8978) CK Mobility: Walking and Moving Around Goal Status (G8979) CJ Balance Sitting Balance 3+/5 sits without UE support for 30 seconds or greater Standing Balance 2/5 indep, requires both UE support Education Education Role of Therapy;Safety with mobility;Cues for proper technique Patient Safety Patient Safety Patient left in chair with needs in reach;Chair/personal alarm activated Assessment Assessment Decreased gait;Decreased functional mobility;Decreased balance;Decreased Right Upper Extremity strength;Decreased RightLower Extremity strength;Decreased Left Upper Extremity strength;Decreased Left Lower Extremity strength;Decreased activity tolerance Prognosis Good;With continued PT s/p acute discharge Rationale for Skilled Therapy Fall Risk;Balance Deficits;Not safe with independent transfers;Not safe ambulating independently Goals PT GOALS (Yes/No) Yes Add Goals Pt Will Go Supine To Sit Independently Pt Will Transfer Bed/Chair With appropriate assistive device;Supervision Pt Will Ambulate With 2 wheel walker;101-150 feet;With stand by assist Pt Will Tolerate Exercise 6-10 reps;With verbal cues required/provided Goal Formulation With patient Time for Goal Achievement 6 days Plan Treatment/Interventions Gait training;Bed mobility;Balance training;Functional transfer training;UEstrengthening/ROM;LE strengthening/ROM;Increase activity tolerance PT Frequency 2-5x/wk Recommendation PT Recommendation Short-term skilled PT;Home PT Additional PT discharge information depends on progress in PT. If being discharged today skilled ifstaying a couple of days and ambulating better may be able to return to [facility] PT Equipment Recommended 2 Wheel walker Time In / Time Out [id number] IP PT Evaluation Minutes 15 IP PT Treatment Minutes 16 * Peggy Brooks BSW - 06/03/2016 2:43 PM EST 06-03 Sw- follow up-text message sent to residents for PT eval to assist with disp and discharge planning. Plan is for pt to return to [facility] upon discharge. Missy at [facility] will need to be notified prior to discharge. Pt will need taxi cab voucher upon discharge, pt has a brother but lives out of town and is not involved in pt's care. * Bambi Mcintosh RN - 06/03/2016 1:29 PM EST Pt still has diarrhea and rectal tube. 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 msg sent to resident reconstructive surgeon. * Meghan Amador MD - 06/03/2016 6:42 AM EST Meghan Amador MD & [facility] Family Medicine Residency Team I and members of the team (including upper level resident and attendings) have participated in the development of this encounter and evaluation. PATIENT: Renan Goncalves : 1945 Hospital Day: LOS: 3 days Admit Date: 05/31/2016 PCP: Kevin Leong Sr., MD Code Status Full Code C/S: MEDICAL DECISION MAKING Today;s Tasks / Orders / Goals / Main Issues Main Issues: Renan Goncalves is a 71 y.o. male who has a past medical history of KARINA (acute kidney injury) ([facility]) (05/31/2016); CHF (congestive heart failure) ([facility]); Depression; High cholesterol; Hypertension; Obesity; Paranoid schizophrenia ([facility]); and Pneumonia. he presented with Loss of Consciousness (Pt to er [facility] from [facility]. Pt has diarrhea x4 days. Today got up from his chair and had a syncopal episode. ems report pt was pale and diarhoretic on arrival to the scene.) The principal problem is Syncope. Current main issues: - Today's Plans - Urine Cx grew Klebsiella pneumoniae sensitive to cephalosporins. Continue Keflex - Abdominal XR ordered Syncope due to hypotension: Was hypotensive on presentation and improved with IVF. - Repeat BMP improved but still with significant KARINA - Continue IVF w/ maintenance fluids at 150mL/hr while still having active diarrhea - Echocardiogram with normal EF relatively unchanged from previous. ? KARINA: Likely due to hypovolemia from diarrhea. - Cr 6.44 at admission -> 1.77 today - Hold nephrotoxic agents - BMPs improving with fluids but still with KARINA and continuing to have liquid brown stools. - Continue fluids as above ? UTI: Purulent urine output with placement of johnson. - Urine Cx: Klebsiella pneumoniae sensitive to cephalosporins - Continue Keflex 500 mg BID ? Diarrhea: Infectious most likely given acute onset. No recent antibiotics or hx of C. Diff. No known exposures. Viral GE v. Bacterial GE. - Rectal tube in place - 2500 mL stool output in last 24 hours - Stool studies ordered in ED - Shiga toxin negative. Culture negative. O&P negative. - C. Diff negative - Perineum protective skin care - Will hold on immodium etc. At this time due to potential for infectious source - Replace electrolytes and fluids as needed - Will order Abdominal XR to assess for overflow incontinence 2/2 fecal impaction, especially sincepatient has been taking imodium at home ? Combined systolic and diastolic heart failure with preserved EF: Echo this admission: grade 1 diastolic dysfunction with EF 55-60%. - Continue atorvastatin, ASA, holding BB and ACEi due to hypotension and KARINA - Care with IVF replacement to avoid hypervolemia, patient has hx of exacerbations with hypervolemia previously. No signs of hypervolemia this morning. ? Schizophrenia: Diagnosed in college 50 years ago. Has been on antipsychotics since then. Does have suppressible resting tremor in bilateral upper extremities with no other neurological abnormalities. - Continue home regimen of risperidone, quetiapine, donepezil - Holding PRN haldol unless needed for agitation ? MDD: - Continue home fluoxetine Active Hospital Problems Diagnosis Date Noted ??? Syncope 05/31/2016 ??? Acute cystitis with hematuria 06/01/2016 ??? Moderate episode of recurrent major depressive disorder (HCC) ??? Perineal rash in male ??? KARINA (acute kidney injury) (HCC) 05/31/2016 ??? Diarrhea in adult patient 05/31/2016 ??? Hypovolemia due to dehydration 05/31/2016 ??? Paranoid schizophrenia (HCC) ??? Essential hypertension ??? Morbid obesity due to excess calories (HCC) ??? Combined systolic and diastolic congestive heart failure, NYHA class 4 (HCC) 02/27/2015 ??? MDD (major depressive disorder) 05/29/2014 Resolved Hospital Problems Diagnosis Date Noted Date Resolved No resolved problems to display. Antibiotics: Keflex Continuous Infusions: ??? dextrose 5% and 0.45% NaCl with KCl 20 mEq 150 mL/hr at 06/03/16 0426 Postoperative & procedures (including Lines and Drains) Status & Events: Peripheral IV 05/31/16 Left Forearm (Active) Site Assessment Clean, dry, and intact 06/03/2016 5:12 AM Line Status Infusing per Pump 06/03/2016 5:12 AM Dressing Status Clean, Dry, and Intact 06/03/2016 5:12 AM Rectal Tube With balloon (Active) Stool Appearance Loose 06/02/2016 10:00 PM Stool Color Brown;Yellow 06/02/2016 10:00 PM Stool Amount Large 06/02/2016 10:00 PM Rectal Tube Output 2000 ml 06/02/2016 10:00 PM Urethral Catheter (Johnson) 05/31/16 Latex (Active) Site Assessment Clean;Intact 06/02/2016 9:34 PM Urethral Cath Necessity Need for accurate I & O 06/02/2016 9:34 PM Securement Device Site Assessmenet Clean, dry, and intact 06/02/2016 9:34 PM Absence of Dependent Loop? Yes 06/02/2016 9:34 PM Tubing/Bag Below Bladder? Yes 06/02/2016 9:34 PM Daily johnson care performed? Yes 06/02/2016 6:15 AM Urine Color Yellow/straw 06/03/2016 6:00 AM Urine Appearance Clear 06/03/2016 6:00 AM Urine Odor Malodorous 06/02/2016 1:17 PM Output (mL) 575 mL 06/03/2016 6:00 AM Problem List Updated & SBAR: reviewed yes Core Measures: A. VTE Prophylaxis: Heparin SQ Q8hrs B. Immunizations: Immunization History Administered Date(s) Administered ??? Influenza Patient Reported 01/27/2015 ??? Influenza Vaccine, Unspecified Formulation 01/18/2016 ??? Pneumococcal Conjugate Vaccine 13 Valent 06/01/2016 ??? Td (adult), preservative free 10/29/2013 Anticipated discharge plans and/or psychosocial circumstances: Return to SNF Subjective: HCAHPS: New medications explained yes Renan has not experienced side effects. Comments: Subjective: Symptoms: Stable. He reports diarrhea. No shortness of breath or cough. (Patient was on O2 when seen, but states he feels comfortable without oxygen. Feels better in general this morning. Slept well last night. Continues to have large volume stool output via rectal tube. ). Diet: Dietary issues: Is eating light due to fear of diarrhea symptoms. No nausea or vomiting. Pain: He reports no pain. Review of Systems Constitutional: Negative for chills, fever and malaise/fatigue. Respiratory: Negative for cough, hemoptysis, sputum production and shortness of breath. Gastrointestinal: Positive for diarrhea. Negative for abdominal pain, blood in stool, constipation,melena, nausea and vomiting. Genitourinary: Negative for dysuria, frequency, hematuria and urgency. Neurological: Negative for dizziness and headaches. Activity: change activity as tolerated Diet: REGULAR DIET MAR reviewed: yes Objective: Vital Blood Pressure: 184/49 Temp: 98.5 ??F (36.9 ??C) Signs Pulse: 85 Resp: 18 SpO2: 93 % Temp (24hrs), Av.9 ??F (37.2 ??C), Min:98.5 ??F (36.9 ??C), Max:99.8 ??F (37.7 ??C) SUPPLEMENTAL O2 & NIV (last filed) O2 Device: Nasal cannula O2 Flow Rate (L/min): 2 lpm SpO2 Readings from Last 2 Encounters: 06/03/16 93% 03/07/15 97% MECHANICAL VENTILATION (last filed) BLOOD GAS & ACID BASE DATA SpO2 Av.3 % Min: 88 % Max: 97 % Intake/Output Summary (Last 24 hours) at 06/03/16 0644 Last data filed at 06/03/16 0608 Gross per 24 hour Intake 4285.33 ml Output 4200 ml Net 85.33 ml Wt Reading from Admission: Body mass index is 36.48 kg/(m^2). 05/31/2016 275 lb (124.7 kg) Wt Readings from Last 1 Encounters: 06/03/16 269 lb (122 kg) EXAM: Objective: General Appearance: Comfortable, well-appearing, in no acute distress and not in pain. Vital signs: (most recent): Blood pressure 184/49, pulse 85, temperature 98.2 ??F (36.8 ??C), temperature source Oral, resp. rate 20, height 6' (1.829 m), weight 269 lb (122 kg), SpO2 95 %. No fever. Output: Producing urine and producing stool (2500mL stool output yesterday). Lungs: Normal respiratory rate and normal effort. He is not in respiratory distress. No wheezes or decreased breath sounds. Heart: Normal rate. Regular rhythm. S1 normal and S2 normal. Extremities: Normal range of motion. There is dependent edema (Trace bilateral pedal pitting edema). Neurological: Patient is alert. Skin: Warm. Abdomen: Abdomen is soft. Bowel sounds are normal. There is no abdominal tenderness. Pulses: Distal pulses are intact. Skin breakdown SBAR reviewed Telemetry: normal sinus and 1 degree AV block Labs / Imaging: Interval Results Reviewed FSBG: reviewed CBC: Recent Labs 05/31/16 0918 06/01/16 0655 06/02/16 0541 WBC 6.5 5.2 3.4* HGB 11.9* 11.5* 11.5* PLT 166 145 153 BMP: Recent Labs 06/01/16 0655 06/02/16 0541 06/03/16 0515 NA 134* 144 147* K 3.8 3.8 4.3 CL 104 115* 119* CO2 13* 14* 14* BUN 52* 37* 20 CREATININE 4.18* 2.50* 1.77* Hepatic: Recent Labs 05/31/16 0918 AST 19 ALT 19 ALKPHOS 60 Complexity and Time involved: For Critical Care Patients Risk of Complications / Morbidity / Mortality - High: -Illness(es) present that pose a threat to life/bodily function -Significant exacerbation of illness / side effects of treatment -Use of parenteral controlled substances -Therapy requires monitoring for toxicity Total Time Spent: > 30 minutes Meghan Amador MD Cosigned by Elena Zamora MD at 06/03/2016 5:53 PM EST Associated attestation - Elena Zamora MD - 06/03/2016 5:53 PM EST I have seen and examined the patient. I have discussed the case with the resident team, and the plan of care has been formulated with the team's input. Subjective: Diarrhea decreasing a bit in volume today, got up and walked with PT, doing a little better in general Objective: Vital signs reviewed. AAO, nad, RRR, normal resp effort, abd soft and benign, extr wwp, observed walking with walker and PT assistance. Labs and imaging reviewed. Assessment/Plan: 71 y.o. yo male with the following issues: Present on Admission: ??? MDD (major depressive disorder) ??? Combined systolic and diastolic congestive heart failure, NYHA class 4 ([facility]) ??? Essential hypertension ??? Paranoid schizophrenia ([facility]) ??? Syncope ??? KARINA (acute kidney injury) ([facility]) ??? Diarrhea in adult patient ??? Hypovolemia due to dehydration ??? Morbid obesity due to excess calories ([facility]) ??? Acute cystitis with hematuria I agree with the findings and plan of care as per Dr. Amador' note today. * Bambi Mcintosh RN - 06/02/2016 6:24 PM EST Rectal tube leaked this AM. Since then it has been ok as long as he is turned all the way on his side. Ate well for breakfast and lunch, no complaints of pain, VSS. More alert this afternoon. IV sitelooks good. Will cont to monitor.Bambi Mcintosh RN * Peggy Brooks BSW - 06/02/2016 1:42 PM EST 06-02 Eduardo-initial note-pt from [facility]. Pt has a brother who is out of town andnot involved in pt's care. Pt will need cab voucher back to [facility]. Pt ambulated independently prior to admission. Eduardo spoke with Missy at [facility]-pt able to return to assisted living upon discharge when medically stable. Missy would like to be notified when pt is discharged. Pt with Schizophrenia has been dx 50 years.Pt getting IV antibiotics Pt now with a rectal tube to manage loose stool, awaiting cultures. Will follow for discharge planning. * Gabriele Soto MD - 06/02/2016 6:58 AM EST Gabriele Soto MD & [facility] Medicine Residency Team I and members of the team (including upper level resident and attendings) have participated in the development of this encounter and evaluation. PATIENT: Renan Goncalves : 1945 Hospital Day: LOS: 2 days Admit Date: 05/31/2016 PCP: Kevin Leong Sr., MD Code Status Full Code C/S: MEDICAL DECISION MAKING Today;s Tasks / Orders / Goals / Main Issues Main Issues: Syncope due to hypotension: Was hypotensive on presentation and improved with IVF. - Repeat BMP improved but still with significant KARINA - Continue IVF w/ maintenance fluids at 150mL/hr while still having active diarrhea - Echocardiogram with normal EF relatively unchanged from previous. ? KARINA: Likely due to hypovolemia from diarrhea. - Hold nephrotoxic agents - BMPs improving with fluids but still with KARINA and continuing to have liquid brown stools. - Continue fluids as above ?? UTI: Purulent urine output with placement of johnson. - Ceftriaxone - Cultures sent prior to antibiotics ? Diarrhea: Infectious most likely given acute onset. No recent antibiotics or hx of C. Diff. No known exposures. Viral GE v. Bacterial GE. Diarrhea continues with 12 episodes in last 24 hours. - Stool studies ordered in ED - Shiga toxin negative. Culture pending. O&P pending. - C. Diff negative - Occult blood not likely to be helpful given perineal irritation and bleeding from diarrhea - Perineum protective skin care - Will hold on immodium etc. At this time due to potential for infectious source - Replace electrolytes and fluids as needed ? Combined systolic and diastolic heart failure with preserved EF: Echo this admission: grade 1 diastolic dysfunction with EF 55-60%. - Continue atorvastatin, ASA, holding BB and ACEi due to hypotension and KARINA - Care with IVF replacement to avoid hypervolemia, patient has hx of exacerbations with hypervolemia previously. No signs of hypervolemia this morning. - Repeat Echo as above ? Schizophrenia: Diagnosed in college 50 years ago. Has been on antipsychotics since then. Does have suppressible resting tremor in bilateral upper extremities with no other neurological abnormalities. - Continue home regimen of risperidone, quetiapine, donepezil - Holding PRN haldol unless needed for agitation ? MDD: - Continue home fluoxetine Active Hospital Problems Diagnosis ??? *Syncope Priority: High ??? KARINA (acute kidney injury) (HCC) Priority: High ??? Diarrhea in adult patient Priority: High ??? Essential hypertension Priority: Medium ??? Combined systolic and diastolic congestive heart failure, NYHA class 4 (HCC) Priority: Medium ??? Paranoid schizophrenia (HCC) Priority: Low ??? MDD (major depressive disorder) Priority: Low ??? Acute cystitis with hematuria ??? Moderate episode of recurrent major depressive disorder (HCC) ??? Perineal rash in male ??? Hypovolemia due to dehydration ??? Morbid obesity due to excess calories (HCC) Problem List Updated & SBAR: reviewed yes Core Measures: A. VTE Prophylaxis: Lovenox B. Immunizations: Immunization History Administered Date(s) Administered ??? Influenza Patient Reported 01/27/2015 ??? Influenza Vaccine, Unspecified Formulation 01/18/2016 ??? Pneumococcal Conjugate Vaccine 13 Valent 06/01/2016 ??? Td (adult), preservative free 10/29/2013 Anticipated discharge plans and/or psychosocial circumstances: Return to SNF Subjective: HCAHPS: New medications explained N/A Renan has not experienced side effects. Comments: No complaints this morning. Tolerating rectal tube with liquid brown stool output. No abdominal pain or cramping. No dizziness but hasn't been OOB much. ROS: Review of Systems Eyes: Negative for blurred vision and double vision. Respiratory: Negative for shortness of breath. Cardiovascular: Negative for chest pain, palpitations and leg swelling. Gastrointestinal: Negative for abdominal pain, blood in stool, melena, nausea and vomiting. Genitourinary: Negative for dysuria, flank pain, frequency and hematuria. Neurological: Negative for headaches. Activity: change activity as tolerated Diet: REGULAR DIET MAR reviewed: yes Objective: Vital Blood Pressure: 150/47 Temp: 98.3 ??F (36.8 ??C) Signs Pulse: 96 Resp: 18 SpO2: 95 % Temp (24hrs), Av.1 ??F (36.7 ??C), Min:97.8 ??F (36.6 ??C), Max:98.3 ??F (36.8 ??C) SUPPLEMENTAL O2 & NIV (last filed) O2 Device: Room Air SpO2 Readings from Last 2 Encounters: 06/02/16 95% 03/07/15 97% MECHANICAL VENTILATION (last filed) BLOOD GAS & ACID BASE DATA SpO2 Av.6 % Min: 95 % Max: 98 % Intake/Output Summary (Last 24 hours) at 06/02/16 0658 Last data filed at 06/02/16 0615 Gross per 24 hour Intake 2791.74 ml Output 2450 ml Net 341.74 ml Wt Reading from Admission: Body mass index is 37.03 kg/(m^2). 05/31/2016 275 lb (124.7 kg) Wt Readings from Last 1 Encounters: 05/31/16 273 lb 1 oz (123.9 kg) EXAM: Physical Exam Constitutional: He appears well-developed and well-nourished. No distress. Neck: Normal range of motion. Neck supple. No JVD present. Cardiovascular: Normal rate, regular rhythm and intact distal pulses. Exam reveals no gallop and nofriction rub. No murmur heard. Pulmonary/Chest: Effort normal and breath sounds normal. No respiratory distress. He has no wheezes. He has no rales. Abdominal: Soft. Bowel sounds are normal. He exhibits no distension and no mass. There is no tenderness. There is no guarding. Genitourinary: Genitourinary Comments: Mild suprapubic tenderness unchanged from previous exams. Nursing note and vitals reviewed. Labs / Imaging: Interval Results Reviewed FSBG: reviewed CBC: Recent Labs 05/31/16 0918 06/01/16 0655 WBC 6.5 5.2 HGB 11.9* 11.5* PLT 166 145 BMP: Recent Labs 05/31/16 1633 06/01/16 0655 06/02/16 0541 NA 137 134* 144 K 4.2 3.8 3.8 CL 106 104 115* CO2 14* 13* 14* BUN 51* 52* 37* CREATININE 5.40* 4.18* 2.50* Hepatic: Recent Labs 05/31/16 0918 AST 19 ALT 19 ALKPHOS 60 Gabriele Soto MD Cosigned by Elena Zamora MD at 06/02/2016 6:11 PM EST Associated attestation - Elena Zamora MD - 06/02/2016 6:11 PM EST I have seen and examined the patient. I have discussed the case with the resident team, and the plan of care has been formulated with the team's input. Subjective: Still having copious diarrhea, but says more comfortable with rectal tube in place; no pain, no fevers Objective: Vital signs reviewed. Exam unchanged from yest. Labs and imaging reviewed. Assessment/Plan: 71 y.o. yo male with the following issues: Present on Admission: ??? MDD (major depressive disorder) ??? Combined systolic and diastolic congestive heart failure, NYHA class 4 (HCC) ??? Essential hypertension ??? Paranoid schizophrenia (HCC) ??? Syncope ??? KARINA (acute kidney injury) (HCC) ??? Diarrhea in adult patient ??? Hypovolemia due to dehydration ??? Morbid obesity due to excess calories (HCC) ??? Acute cystitis with hematuria I agree with the findings and plan of care as per Dr. Soto's note today. * Kirstie Jara RN - 06/02/2016 1:30 AM EST Rectal tube inserted to manage loose stool and prevent further skin breakdown. Buttocks excoriated,red, bleeding in some areas. Managing with repositioning and moisture barrier. * Mary Webb RN - 06/01/2016 5:33 PM EST I agree with the NK[employer] student assessment. * Abby Samson, Thermal Spray Operator - 06/01/2016 4:46 PM EST 06/01/16 1621 Edema Generalized Edema +1 Facial Edema +1 Right Upper Extremity Edema +1 Left Upper Extremity Edema +1 Right Lower Extremity Edema +1;Non-pitting Left Lower Extremity Edema +1;Non-pitting Perineal Edema +2;Non-pitting Resident reconstructive surgeon notified generalized edema noted. NS@200 running. pt c/o feeling cornejo than usual. do you want to decrease? * Steve Jimenez - 06/01/2016 11:30 AM EST 06/01/16 1130 Pastoral Care Encounter Visited With Patient Date of visit 06/01/16 Visit Type Initial Need to follow-up? Yes Scientologist Needs Pastoral care brochure;Prayer Spiritual Needs Buddhism? Muslim Scientologist Affiliation None Pastoral Care Issues Pastoral Care Issues Coping Coping Resources Christine;Family;Prayer Pastoral Care Plan/Intervention Plan/Intervention Active Listening;Continue to Follow;Prayer * Gabriele Soto MD - 06/01/2016 7:03 AM EST Gabriele Soto MD & [facility] Family Medicine Residency Team I and members of the team (including upper level resident and attendings) have participated in the development of this encounter and evaluation. PATIENT: Renan Goncalves : 1945 Hospital Day: LOS: 1 day Admit Date: 05/31/2016 PCP: Kevin Leong Sr., MD Code Status Full Code C/S: MEDICAL DECISION MAKING Today;s Tasks / Orders / Goals / Main Issues Main Issues: Syncope due to hypotension: Was hypotensive on presentation and improved with IVF. - Repeat BMP improved but still with significant KARINA - Continue NS at 200mL/hr for 12 hours then switch to D5 1/2NS w/ 20KCl at 150mL/hr - Echocardiogram - pending ?? KARINA: Likely due to hypovolemia from diarrhea. - Hold nephrotoxic agents - BMPs improving with fluids - Continue fluids as above UTI: Purulent urine output with placement of johnson. - Ceftriaxone - Cultures sent prior to antibiotics ?? Diarrhea: Infectious most likely given acute onset. No recent antibiotics or hx of C. Diff. No known exposures. Viral GE v. Bacterial GE. - Stool studies ordered in ED - C. Diff pending - no risk factors - Occult blood not likely to be helpful given perineal irritation and bleeding from diarrhea - Perineum protective skin care - Will hold on immodium etc. At this time due to potential for infectious source - Replace electrolytes and fluids as needed ?? Combined systolic and diastolic heart failure with preserved EF: Last Echo 02/2015 with EF 60-65%. - Continue atorvastatin, ASA, holding BB and ACEi due to hypotension and KARINA - Care with IVF replacement to avoid hypervolemia, patient has hx of exacerbations with hypervolemia previously - Repeat Echo as above ?? Schizophrenia: Diagnosed in college 50 years ago. Has been on antipsychotics since then. Does have suppressible resting tremor in bilateral upper extremities with no other neurological abnormalities. - Continue home regimen of risperidone, quetiapine, donepezil - Holding PRN haldol unless needed for agitation ?? MDD: - Continue home fluoxetine Active Hospital Problems Diagnosis ??? *Syncope Priority: High ??? KARINA (acute kidney injury) (HCC) Priority: High ??? Diarrhea in adult patient Priority: High ??? Essential hypertension Priority: Medium ??? Combined systolic and diastolic congestive heart failure, NYHA class 4 (HCC) Priority: Medium ??? Paranoid schizophrenia (HCC) Priority: Low ??? MDD (major depressive disorder) Priority: Low ??? Hypovolemia due to dehydration ??? Morbid obesity due to excess calories (HCC) Problem List Updated & SBAR: reviewed yes Core Measures: A. VTE Prophylaxis: Lovenox B. Immunizations: Immunization History Administered Date(s) Administered ??? Influenza Patient Reported 01/27/2015 ??? Influenza Vaccine, Unspecified Formulation 01/18/2016 ??? Td (adult), preservative free 10/29/2013 Anticipated discharge plans and/or psychosocial circumstances: Return to [facility] Subjective: HCAHPS: New medications explained N/A Renan has not experienced side effects. Comments: No diarrhea since this morning 2 episodes. Suprapubic pain improved. Making more urine now. ROS: Review of Systems Constitutional: Negative for chills and fever. Respiratory: Negative for shortness of breath. Cardiovascular: Negative for chest pain. Gastrointestinal: Negative for abdominal pain, nausea and vomiting. Genitourinary: Negative for flank pain. Activity: up with assistance Diet: CLEAR LIQUID DIET MAR reviewed: yes Objective: Vital Blood Pressure: 112/46 Temp: 98.6 ??F (37 ??C) Signs Pulse: 85 Resp: 16 SpO2: 94 % Temp (24hrs), Av.4 ??F (36.9 ??C), Min:98.1 ??F (36.7 ??C), Max:98.6 ??F (37 ??C) SUPPLEMENTAL O2 & NIV (last filed) O2 Device: Room Air SpO2 Readings from Last 2 Encounters: 06/01/16 94% 03/07/15 97% MECHANICAL VENTILATION (last filed) BLOOD GAS & ACID BASE DATA SpO2 Av.2 % Min: 87 % Max: 98 % Intake/Output Summary (Last 24 hours) at 06/01/16 0706 Last data filed at 06/01/16 0600 Gross per 24 hour Intake 0 ml Output 900 ml Net -900 ml Wt Reading from Admission: Body mass index is 37.03 kg/(m^2). 05/31/2016 275 lb (124.7 kg) Wt Readings from Last 1 Encounters: 05/31/16 273 lb 1 oz (123.9 kg) EXAM: Physical Exam Constitutional: He appears well-developed and well-nourished. No distress. Neck: No JVD present. Cardiovascular: Normal rate, regular rhythm, normal heart sounds and intact distal pulses. Exam reveals no gallop and no friction rub. No murmur heard. Pulmonary/Chest: Effort normal and breath sounds normal. No respiratory distress. He has no wheezes. He has no rales. Abdominal: Soft. Bowel sounds are normal. He exhibits no distension and no mass. There is no tenderness. There is no guarding. Genitourinary: Genitourinary Comments: Urine is leila color in johnson bag, not purulent appearing like yesterday. Nursing note and vitals reviewed. Labs / Imaging: Interval Results Reviewed FSBG: reviewed CBC: Recent Labs 05/31/16917 WBC 6.5 HGB 11.9* PLT 166 BMP: Recent Labs 05/31/1691705/31/16 1633 NA 136 137 K 4.8 4.2 CL 101 106 CO2 17* 14* BUN 49* 51* CREATININE 6.44* 5.40* Hepatic: Recent Labs 05/31/16917 AST 19 ALT 19 ALKPHOS 60 Gabriele Soto MD Cosigned by Elena Zamora MD at 06/01/2016 5:26 PM EST Associated attestation - Elena Zamora MD - 06/01/2016 5:26 PM EST I have seen and examined the patient. I have discussed the case with the resident team, and the plan of care has been formulated with the team's input. Responding very well to IVFs and abx. Subjective: No new complaints, still having watery diarrhea Objective: Vital signs reviewed. Agree with resident, exam stable. Labs and imaging reviewed. Assessment/Plan: 71 y.o. yo male with the following issues: Present on Admission: ??? MDD (major depressive disorder) ??? Combined systolic and diastolic congestive heart failure, NYHA class 4 (HCC) ??? Essential hypertension ??? Paranoid schizophrenia (HCC) ??? Syncope ??? KARINA (acute kidney injury) (HCC) ??? Diarrhea in adult patient ??? Hypovolemia due to dehydration ??? Morbid obesity due to excess calories (HCC) ??? Acute cystitis with hematuria Perineal abrasions/excoriation due to chemical dermatitis from diarrhea (POA) I agree with the findings and plan of care as per Dr. Soto's note today. * Bambi Mcintosh RN - 05/31/2016 8:46 PM EST Skin check with Luzmaria O. Excoriation under right breast, dry flaky feet, excoriation or moisture related dermatitis to génesis are and buttocks. Applied powder and cream. Pt in isolation for c-diff, waiting for lab results. No loose stools since arrival to the floor. Will cont to monitor.Bambi Mcintosh RN\ documented in this encounter H&P Notes * Gabriele Soto MD - 05/31/2016 10:18 AM EST [facility] History & Physical Gabriele Soto MD & [facility] Family Medicine Residency Team I and members of the team (including upper level resident and attending) have participated in the development of this encounter and evaluation. PATIENT: Renan Goncalves : 1945 Admit Date: 05/31/2016 PCP: Kevin Leong Sr., MD Admitting Physician: Elena Zamora MD Code Status: Full Code Subjective: Chief Complaint: Chief Complaint Patient presents with ??? Loss of Consciousness Pt to er by ems from [facility]. Pt has diarrhea x4 days. Today got up from his chair and had a syncopal episode. ems report pt was pale and diarhoretic on arrival to the scene. History of Present Illness: Renan Goncalves is a 71 y.o. male with PMHx significant for systolic and diastolic heart failure withpreserved ejection fraction and schizophrenia who presents with 4 days of constant diarrhea. He reports that he got up from his chair and the next thing he remembers was nurses then EMS treating him. He is a poor historian. He denies reduced PO intake. He reports that initially his diarrhea was brown and liquid, without blood or melena. After several episodes of fecal incontinence he notes thatthe bowel movements also contained bright red blood. ED Course: On presentation to the ED he was noted to be hypotensive, pale, and diaphoretic - Received 2L IVF followed by IVF at 150mL/hr - Blood pressure improved - Johnson was placed with output of small volume purulent urine - Started on Ceftriaxone for suspected UTI - Blood cultures sent - CBC relatively unremarkable, without leukocytosis - BMP revealed severe KARINA Review of Systems: Review of Systems Constitutional: Positive for malaise/fatigue. Negative for chills and fever. Eyes: Negative for blurred vision and double vision. Respiratory: Negative for cough, sputum production, shortness of breath and wheezing. Cardiovascular: Positive for leg swelling. Negative for chest pain and palpitations. No worse than usual Gastrointestinal: Negative for nausea and vomiting. Genitourinary: Negative for dysuria and hematuria. Suprapubic pain Skin: Negative for rash. Neurological: Positive for dizziness. Negative for sensory change, focal weakness and headaches. Lightheadedness prior to syncopal episode with standing. Psychiatric/Behavioral: Negative for depression and hallucinations. The patient is not nervous/anxious. Problem List Reviewed, Hospital Problem List Up Dated, and Overview Developed: yes Medication Reconciliation and Allergies: yes Social History and Family History Reviewed: yes Tobacco / Drug / Alcohol History: History Alcohol Use No History Drug Use No History Smoking Status ??? Never Smoker Smokeless Tobacco ??? Not on file Immunizations: Immunization History Administered Date(s) Administered ??? Influenza Patient Reported 01/27/2015 ??? Td (adult), preservative free 10/29/2013 Objective: Physical Exam / Data Body mass index is 38.35 kg/(m^2). Wt Readings from Last 1 Encounters: 05/31/16 275 lb (124.7 kg) Ht Readings from Last 1 Encounters: 04/23/15 5' 11 (1.803 m) Vital Blood Pressure: (!) 88/51 Temp: 98.1 ??F (36.7 ??C) Signs Pulse: 81 Resp: 28 SpO2: 92 % Temp (24hrs), Av.1 ??F (36.7 ??C), Min:98.1 ??F (36.7 ??C), Max:98.1 ??F (36.7 ??C) SUPPLEMENTAL O2 & NIV (last filed) SpO2 Readings from Last 2 Encounters: 05/31/16 92% 03/07/15 97% Physical Exam Constitutional: He appears well-developed and well-nourished. No distress. Poor hygiene HENT: Head: Normocephalic and atraumatic. Nose: Nose normal. Mouth/Throat: Oropharynx is clear and moist. No oropharyngeal exudate. Eyes: Conjunctivae and EOM are normal. Pupils are equal, round, and reactive to light. No scleral icterus. Bilateral eyes with small amount of crusty mucoid discharge. Neck: Normal range of motion. Neck supple. No JVD present. No thyromegaly present. Cardiovascular: Normal rate, regular rhythm, normal heart sounds and intact distal pulses. Exam reveals no gallop and no friction rub. No murmur heard. Pulmonary/Chest: Effort normal and breath sounds normal. No respiratory distress. He has no wheezes. He has no rales. Abdominal: Soft. Bowel sounds are normal. He exhibits no distension and no mass. There is no tenderness. There is no guarding. Musculoskeletal: He exhibits edema. He exhibits no tenderness or deformity. 1+ edema to mid-vitale. Lymphadenopathy: He has no cervical adenopathy. Neurological: He is alert. He displays normal reflexes. No cranial nerve deficit. He exhibits normal muscle tone. Coordination normal. Oriented to person and place, not to time, date, or month. Resting tremor noted in bilateral arms that patient can suppress. Skin: Skin is warm and dry. Majority of perineum is excoriated and erythematous. Nursing note and vitals reviewed. Data Current Labs, Radiologic Studies and Medical Test Reviewed: yes MEDICAL DECISION MAKING Assessment and Plan: Active Hospital Problems Diagnosis Date Noted ??? Syncope 05/31/2016 Priority: High ??? KARINA (acute kidney injury) ([facility]) 05/31/2016 Priority: High ??? Diarrhea in adult patient 05/31/2016 Priority: High ??? Essential hypertension Priority: Medium ??? Combined systolic and diastolic congestive heart failure, NYHA class 4 ([facility]) 02/27/2015 Priority: Medium ??? Paranoid schizophrenia ([facility]) Priority: Low ??? MDD (major depressive disorder) 05/29/2014 Priority: Low Resolved Hospital Problems Diagnosis Date Noted Date Resolved No resolved problems to display. Syncope: DDx includes hypotension due to hypovolemia/prerenal KARINA, cardiogenic such as arrhythmia, unlikely to be neurogenic given no hx of seizure and no focal deficits. Was hypotensive on presentation and improved with IVF. - Received 2L IVF plus above maintenance IVF in the ED - Recheck BMP at 1600 today - Continue IVF NS at 150mL/hr for now, time for discontinue given comorbid heart failure - Echocardiogram - Orthostatic blood pressures - already received IVF but was too unstable for this prior to IVF. KARINA: Likely due to hypovolemia from diarrhea. BUN/cre ratio is 8. - Urinalysis - Urine culture - Consider urine sediment - however only 10mL of urine available at this time and purulent will reduce yield - Consider urine Eos when output improves - Consider urine electrolytes but output too poor to run tests - Hold nephrotoxic agents - Will re-evaluate with repeat BMP and daily BMPs after IVF replacement Diarrhea: Infectious most likely given acute onset. No recent antibiotics or hx of C. Diff. No known exposures. Viral GE v. Bacterial GE. - Stool studies ordered in ED - Occult blood not likely to be helpful given perineal irritation and bleeding from diarrhea - Perineum protective skin care - Will hold on immodium etc. At this time due to potential for infectious source - Replace electrolytes and fluids as needed - Mg, Phos level Combined systolic and diastolic heart failure with preserved EF: Last Echo 02/2015 with EF 60-65%. - Continue atorvastatin, ASA, holding BB and ACEi due to hypotension and KARINA - Care with IVF replacement to avoid hypervolemia, patient has hx of exacerbations with hypervolemia previously - Repeat Echo as above Schizophrenia: Diagnosed in college 50 years ago. Has been on antipsychotics since then. Does have suppressible resting tremor in bilateral upper extremities with no other neurological abnormalities. - Continue home regimen of risperidone, quetiapine, donepezil - Holding PRN haldol unless needed for agitation MDD: - Continue home fluoxetine Psychosocial Circumstances: Lives at [facility] Prophylaxis: Lovenox, PPI FEN: Advance as tolerated to regular diet Disposition: Likely will return to [facility], inpatient now for workup of KARINA and evaluate extent of renal damage, IV fluids, IV antibiotics. Gabriele Soto MD 05/31/2016 Cosigned by Elena Zamora MD at 05/31/2016 4:36 PM EST Associated attestation - Elena Zamora MD - 05/31/2016 4:36 PM EST I have reviewed the history and physical findings with the resident team. I have seen the patient and confirm that he is a 71 y.o. schizophrenic male resident of [facility] with findings of severeAKI and hypovolemic hypotension after 4 days of profuse diarrhea. He experienced progressive generalized weakness and malaise over the past 4 days and finally had a syncopal event today. He denies fevers/chills, URI sxs, but does endorse nausea. He has no known sick contacts, no known risk factors for c.diff. He was hypotensive and extensively soiled with liquid stool on presentation to the ER. He responded very well to IVFs and his urine output has been improving. He is a poor historian and unable to identify a clear surrogate decision maker, although he does have a brother. Past Medical History: Diagnosis Date ??? KARINA (acute kidney injury) ([facility]) 05/31/2016 ??? CHF (congestive heart failure) ([facility]) ??? Depression ??? High cholesterol ??? Hypertension ECHO 02/2015- EF 60-65% ??? Obesity ??? Paranoid schizophrenia ([facility]) ??? Pneumonia Family History Problem Relation Age of Onset ??? Cancer Mother ??? Heart Disease Father Social History Substance Use Topics ??? Smoking status: Never Smoker ??? Smokeless tobacco: None ??? Alcohol use No Resident at [facility]. Has a brother who he says is not interested in making personal decisionsfor him if he should become incapacitated, although this would be okay with the patient. For additional PMH, PSH, FH, SocHx, Meds, All and ROS, please see the resident admission H&P, with which I agree. Objective:. Visit Vitals ??? BP 114/54 ??? Pulse 75 ??? Temp 98.1 ??F (36.7 ??C) (Oral) ??? Resp 17 ??? Wt 275 lb (124.7 kg) ??? SpO2 93% ??? BMI 38.35 kg/m2 Gen - Alert, disheveled, crusting discharge from both eyes, slightly dry MM. Oriented to self, place, month, year, POTUS, but not to date. Also exhibits delusional thinking - shares that he has been reading a lot about [place] water and taking [place] water pills, which he thinks may be responsible for his current illness but later admits are imaginary pills. CV - rrr Pulm - ctab Abd - soft, NT, ND, +bs, no guarding/rebound Extr - wwp, 1+ BLE edema No intake or output data in the 24 hours ending 05/31/16 1627 Code Status Full Code Lab Results Component Value Date WBC 6.5 05/31/2016 HGB 11.9 (L) 05/31/2016 HCT 35.2 (L) 05/31/2016 PLT 166 05/31/2016 ALT 19 05/31/2016 AST 19 05/31/2016 NA 136 05/31/2016 K 4.8 05/31/2016 CL 101 05/31/2016 CREATININE 6.44 (H) 05/31/2016 BUN 49 (H) 05/31/2016 CO2 17 (L) 05/31/2016 TSH 1.900 03/06/2015 INR 1.03 05/31/2016 GLU 106 (H) 05/31/2016 New XR findings: Xr Chest Ap Portable Result Date: 05/31/2016 XR CHEST AP PORTABLE 05/31/2016 9:22 AM CLINICAL: -LOSS OF CONSCIOUSNESS COMPARISON: 02/27/2015 time11:49 AM FINDINGS: The cardiopericardial silhouette is mildly enlarged. There is some ill definition of pulmonary vessels which may indicate early pulmonary edema. No focal areas of consolidation. Questionable mild CHF. No definite areas of focal consolidation. Ek Ekg 12 Lead Result Date: 05/31/2016 NOTICE: Preliminary tracing available for review; Final Interpretation by physician to follow. Stationary ECG Study [facility] Interpretive Statements SINUS RHYTHM WITH FIRST DEGREE AV BLOCK No procedure found. Current Meds ??? sodium chloride Intravenous Once ??? aspirin 81 mg Oral Daily ??? atorvastatin 10 mg Oral Every Other Night ??? Donepezil 23 mg Oral Nightly ??? doxazosin 2 mg Oral Daily ??? enoxaparin 40 mg Subcutaneous Daily ??? FLUoxetine 40 mg Oral BID ??? pantoprazole 40 mg Intravenous Daily Or ??? pantoprazole 40 mg Oral Daily ??? QUEtiapine 25 mg Oral BID ??? risperiDONE 4 mg Oral BID PRN Meds acetaminophen, ondansetron Infusions Diet: CLEAR LIQUID DIET I concur with the resident team assessment: Patient Active Problem List Diagnosis Date Noted ??? Syncope 05/31/2016 ??? KARINA (acute kidney injury) ([facility]) 05/31/2016 ??? Diarrhea in adult patient 05/31/2016 ??? Paranoid schizophrenia (HCC) ??? Essential hypertension ??? Morbid obesity due to excess calories (HCC) ??? Combined systolic and diastolic congestive heart failure, NYHA class 4 (HCC) 02/27/2015 ??? Acute right-sided CHF (congestive heart failure) (HCC) 02/27/2015 ??? Bilateral lower extremity edema 02/27/2015 ??? Medication monitoring encounter 07/06/2014 ??? MDD (major depressive disorder) 05/29/2014 ??? Morbid obesity (HCC) 05/29/2014 Day number 0 Plan as outlined in the resident's note today. I have provided direct personal supervision as needed. Participated in medical management, monitoring, and treatment of this patient with medical team. Have reviewed documentation, test results, and laboratory results in the past 24 hours. Care plan has been developed collaboratively with resident physician. documented in this encounter ED Notes * Aurelia Burr RN - 05/31/2016 3:52 PM EST Pt with brown liquid stool noted on attends. Pt changed and perineum care given. Pt turned onto left side. * Shani Atkinson RN - 05/31/2016 1:48 PM EST PT OFFERS NO C/O GIVEN MOUTH CARE PER PT REQUEST, CALL LIGHT IN REACH * Betzy Burns MD - 05/31/2016 8:35 AM EST Chief Complaint Patient presents with ??? Loss of Consciousness Pt to er by ems from [facility]. Pt has diarrhea x4 days. Today got up from his chair and had a syncopal episode. ems report pt was pale and diarhoretic on arrival to the scene. HPI Comments: Patient presents to the emergency department from [facility] after a syncopal episode. This was reported by the [facility]. Patient said that he has been feeling weak. He said he'sbeen having diarrhea for the last 4 days all day long . He said he has been taking Imodium withoutrelief. He said his stool is brown in color but it looks bloody. He has been having some mild crampy lower abdominal discomfort. No nausea or vomiting. He said he feels thirsty and is not been urinating as much. Patient said that he has been feeling weak and today he got up to try to go to breakfast and he said the walker wouldn't hold his weight. He doesn't recall fainting but it was reported bythe [facility] called EMS. On arrival he was pale and diaphoretic and found to be hypotensive. Patient denies chest pain. No palpitations. Denies fever. Denies any urinary symptoms other than a little bit of a runny nose. History provided by: Patient, EMS personnel and [facility] No Known Allergies Home Medications: Prior to Admission medications Medication Sig Start Date End Date Taking? Authorizing Provider acetaminophen Oral tablet Take 650 mg by mouth every 4 hours as needed for Pain (2 tabs for elevated temp/discomfort). Yes Provider, Historical amLODIPine (NORVASC) 2.5 mg Oral Tablet Take 2.5 mg by mouth daily. Yes Provider, Historical Aspirin 81 mg Take 81 mg by mouth daily. Yes Provider, Historical carvedilol (COREG) 25 mg Oral Tablet Take 25 mg by mouth 2 times daily. Yes Provider, Historical Donepezil (ARICEPT) 23 mg Oral Tablet Take by mouth nightly. Yes Provider, Historical ergocalciferol (VITAMIN D) 50,000 unit Oral Capsule Take by mouth once a week. Yes Provider, Historical FLUoxetine (PROZAC) 40 mg capsule Take 40 mg by mouth 2 times daily. Yes Provider, Historical fUROsemide (LASIX) 40 mg Oral Tablet Take 40 mg by mouth every 12 hours. Yes Provider, Historical guaiFENesin-dextromethorphan (ROBITUSSIN DM) 10-100 mg/5 mL syrup Take 10 mL by mouth every 4 hoursas needed for Cough. Yes Provider, Historical haloperidol (HALDOL) 5 mg tablet Take 5 mg by mouth every 4 hours as needed for Agitation (every 4 hours as needed for agitation). Yes Provider, Historical loperamide (IMODIUM) 2 mg Oral Capsule Take by mouth 2 times daily. Yes Provider, Historical potassium chloride (MICRO-K) 10 mEq CR capsule Take 20 mEq by mouth 2 times daily. Yes Provider, Historical QUEtiapine (SEROQUEL) 25 mg Oral Tablet Take by mouth 2 times daily. Yes Provider, Historical risperiDONE (RISPERDAL) 4 mg tablet Take 4 mg by mouth 2 times daily. Yes Provider, Historical simvastatin (ZOCOR) 10 mg Take 10 mg by mouth nightly. Yes Provider, Historical spironolactone (ALDACTONE) 25 mg Oral Tablet Take 0.5 Tabs by mouth daily. 04/23/15 Yes Radha Tate APRN terazosin (HYTRIN) 2 mg capsule Take 2 mg by mouth nightly. Yes Provider, Historical valsartan (DIOVAN) 320 mg tablet Take 320 mg by mouth daily. Yes Provider, Historical Past Medical History: Past Medical History: Diagnosis Date ??? CHF (congestive heart failure) (HCC) ??? Depression ??? High cholesterol ??? Hypertension ECHO 02/2015- EF 60-65% ??? Obesity ??? Paranoid schizophrenia (HCC) ??? Pneumonia Social History: reports that he has never smoked. He does not have any smokeless tobacco history onfile. He reports that he does not drink alcohol or use illicit drugs. Family History: Family History Problem Relation Age of Onset ??? Cancer Mother ??? Heart Disease Father Surgical History: Past Surgical History: Procedure Laterality Date ??? HAND SURGERY Review of Systems All other systems reviewed and are negative. Blood pressure (!) 89/49, pulse 90, temperature 98.1 ??F (36.7 ??C), temperature source Oral, resp.rate 28, weight 275 lb (124.7 kg), SpO2 92 %. Physical Exam Constitutional: He is oriented to person, place, and time. Patient is awake and alert. He does not appear toxic but looks like he saw feeling well HENT: Throat is clear. Mucous membranes look dry Eyes: Conjunctivae are normal. Pupils are equal, round, and reactive to light. No scleral icterus. Neck: Neck supple. Cardiovascular: Regular rhythm and intact distal pulses. Pulmonary/Chest: Effort normal. No respiratory distress. Abdominal: Soft. Bowel sounds are normal. Abdomen is obese. Mild tenderness. No focal tenderness rebound or guarding. No hepatosplenomegaly or palpable mass Genitourinary: Genitourinary Comments: Stool is brown in color. Patient was incontinent of liquid brown stool. Hisbuttocks and perineum is excoriated. Musculoskeletal: He exhibits edema (trace edema). Neurological: He is alert and oriented to person, place, and time. Moves all extremities but is generally weak Skin: Skin is warm and dry. Psychiatric: He has a normal mood and affect. Vitals reviewed. Procedures Radiology/EKG/Labs: Patient's EKG shows sinus rhythm at a rate of 85 with normal axis, first-degree AV block, no acute changes. Results for orders placed or performed during the hospital encounter of 05/31/16 XR CHEST AP PORTABLE Narrative XR CHEST AP PORTABLE 05/31/2016 9:22 AM CLINICAL: -LOSS OF CONSCIOUSNESS COMPARISON: 02/27/2015 time 11:49 AM FINDINGS: The cardiopericardial silhouette is mildly enlarged. There is some ill definition of pulmonary vessels which may indicate early pulmonary edema. No focal areas of consolidation. Impression Questionable mild CHF. No definite areas of focal consolidation. CBC WITH AUTO DIFF Result Value Ref Range WBC 6.5 4.0 - 11.0 x10(3)/mcL RBC 3.73 (L) 4.30 - 5.81 x10(6)/mcL Hgb 11.9 (L) 13.5 - 17.1 gm/dL Hct 35.2 (L) 38.9 - 51.6 % MCV 94.2 82.5 - 99.8 fL MCH 31.8 27.0 - 34.3 pg MCHC 33.8 32.1 - 35.3 gm/dL RDW 13.2 11.5 - 15.0 % Platelet 166 144 - 423 x10(3)/mcL MPV 7.6 6.8 - 10.8 fL COMPREHENSIVE METABOLIC PANEL Result Value Ref Range Sodium 136 136 - 145 mmol/L Potassium 4.8 3.5 - 5.0 mmol/L Chloride 101 98 - 107 mmol/L Total CO2 17 (L) 22 - 29 mmol/L Anion Gap 18 (H) 7 - 16 mmol/L Calcium 8.1 (L) 8.8 - 10.2 mg/dL Glucose Lvl 106 (H) 82 - 100 mg/dL BUN 49 (H) 8 - 23 mg/dL Creatinine 6.44 (H) 0.67 - 1.30 mg/dL Albumin 3.6 3.2 - 4.6 gm/dL Total Protein 7.6 6.4 - 8.3 gm/dL Bili Total 0.4 0.1 - 1.4 mg/dL AST 19 <=40 IU/L ALT 19 <=41 IU/L Alk Phos 60 40 - 129 IU/L GFR Afr Am 10 GFR Non Afr Am 9 LIPASE LEVEL Result Value Ref Range Lipase Lvl 40 13 - 60 IU/L TROPONIN-T Result Value Ref Range Troponin-T 0.01 (H) <=0.00 ng/mL PT / INR Result Value Ref Range PT 11.9 10.1 - 12.9 second(s) INR 1.03 0.88 - 1.12 DIFFERENTIAL Result Value Ref Range Neut Percent 78.0 % Lymph Percent 7.8 % [place] Percent 13.7 % Eos Percent 0.2 % Baso Percent 0.3 % Neut# 5.1 1.8 - 7.7 x10(3)/mcL Lymph# 0.5 (L) 0.6 - 4.8 x10(3)/mcL [place]# 0.9 0.0 - 1.3 x10(3)/mcL Eos# 0.0 0.0 - 0.5 x10(3)/mcL Baso# 0.0 0.0 - 0.2 x10(3)/mcL EK EKG 12 LEAD Narrative NOTICE: Preliminary tracing available for review; Final Interpretation by physician to follow. Impression Stationary ECG Study [facility] Interpretive Statements SINUS RHYTHM WITH FIRST DEGREE AV BLOCK ED Course: Patient presents to the emergency department after a syncope episode. Patient has been having persistent diarrhea for the last 4 days. He is incontinent stool here in the ER. He was found to be hypotensive. He was given a liter of IV fluid. After the first liter of fluid he was still hypotensive. He was given a second liter of fluid with improvement in his blood pressure. He was found to be in acute renal failure. He was started on fluids at 150 cc an hour. Stool was guaiac positive although itis brown in color. He was given Protonix. H&H is stable. I have ordered stool studies. Patient will be admitted under the care of family(. Case discussed with the family practice resident. ED Clinical Impression: 1. Syncope, unspecified syncope type 2. Diarrhea, unspecified type 3. Dehydration 4. Acute renal failure, unspecified acute renal failure type Critical Care time Condition at Discharge/Transfer from Department: Stable This chart was completed using voice recognition technology and may contain unintended errors Betzy Burns MD 05/31/16 1024 documented in this encounter Miscellaneous Notes * Utilization Review Notes - Mackenzie Carmona RN - 06/03/2016 11:13 AM EST Contined stay review on a telemetry unit IP order present in epic and event management VSS O2 sat decreased to 88% and increased to 91% on 2l.. Bun/creatinine has decreased to 20/1.77. 1/2 NS with 20meq K+ @ 75 is infusing. nephrotoxic agents are being held * Utilization Review Notes - Ioana Vasquez RN - 06/01/2016 8:39 AM EST NEW ADMIT FROM ED TO TELE UNIT INPT ORDER ON CHART FOR Dehydration, KARINA (acute kidney injury) (HCC), Acute renal failure, Syncope, AND Diarrhea ED NOTE 05/31: Patient presents with ??? Loss of Consciousness ? Pt to er by ems from [facility]. Pt has diarrhea x4 days. Today got up from his chair and had a syncopal episode. ems report pt was pale and diarhoretic on arrival to the scene. ? HPI Comments: Patient presents to the emergency department from [facility] after a syncopal episode. This was reported by the [facility]. Patient said that he has been feeling weak. He said he'sbeen having diarrhea for the last 4 days all day long . He said he has been taking Imodium withoutrelief. He said his stool is brown in color but it looks bloody. He has been having some mild crampy lower abdominal discomfort. No nausea or vomiting. He said he feels thirsty and is not been urinating as much. Patient said that he has been feeling weak and today he got up to try to go to breakfast and he said the walker wouldn't hold his weight. He doesn't recall fainting but it was reported bythe [facility] called EMS. On arrival he was pale and diaphoretic and found to be hypotensive. Patient denies chest pain. No palpitations. Denies fever. Denies any urinary symptoms other than a little bit of a runny nose. NOTE 05/31: Assessment and Plan: Pt being admitted for hypotension and KARINA likely due to hypovolemia. Syncopal episode likely due toorthostatic hypotension. Treat with IV fluids. Stool studies ordered. Check orthostatic vitals and Echo. Stool guaiac positive, check H/H. If stable, likely can get GI work up as outpatient. NS AT 200 ML/HR ROCEPHIN 1 G IVPB DAILY NS BOLUS 1000 ML IV ONCE X 1 NS BOLUS 500 ML IV ONCE X 2 BUN 52, CREAT 4.18 ?? * Plan of Care - Davide Tran RN - 06/01/2016 1:31 AM EST Problem: Isolation Precautions Goal: Prevent transmission of multi-drug organisms within the hospital Outcome: Progressing Appropriate PPE set up outside pt's door. Sign for isolation precaution placed on door. * Plan of Care - Davide Tran RN - 06/01/2016 1:29 AM EST Problem: Nutrition Imbalance, Cardiac Goal: Nutritional needs will be maintained Outcome: Progressing Diet will be advanced as appropriately ordered. * H&P Update - Jayme Haro MD - 05/31/2016 11:37 AM EST Senior Resident Medicine Note I have seen and examined patient. Agree with Dr. Soto's assessment and plan. Pt is a 71 y.o male with hx of schizophrenia, MDD, HTN, and CHF who presented to the ED after possible syncopal episode. He is a resident of [facility]. He has been having profound diarrhea for the past 4 days. Took imodium without relief. Pt states he noticed some blood in the stool as well. ER: Found to be hypotensive with an KARINA - Cr up to 6.44. Received 2L bolus of IV fluids and BP responded well. Vitals: 05/31/16 0915 BP: (!) 88/51 Pulse: 81 Resp: Temp: SpO2: General: alert, NAD HEENT: Lungs: CTAB Heart: RRR Abdomen: soft, non-tender, BS active Extremities: resting right hand tremor (on antipsychotics) Assessment and Plan: Pt being admitted for hypotension and KARINA likely due to hypovolemia. Syncopal episode likely due toorthostatic hypotension. Treat with IV fluids. Stool studies ordered. Check orthostatic vitals and Echo. Stool guaiac positive, check H/H. If stable, likely can get GI work up as outpatient. For full details, please H&P by Dr. Soto. Jayme Haro MD Cosigned by Elena Zamora MD at 05/31/2016 6:19 PM EST documented in this encounter Plan of Treatment Pending Results Name Type Priority Associated Diagnoses Date /Time TYPE AND SCREEN Blood Bank STAT 7 10:27 AM EST Scheduled Orders Name Type Priority Associated Diagnoses Orde r Schedule TYPE AND SCREEN Blood Bank STAT STAT for 1 Occurrences starting 05/31/2016 until 05/31/2016 documented as of this encounter Procedures Procedure Name Priority Date/Time Associated Diagnosis Comments SCANNED RHYTHM STRIPS 07/04/2016 3:10 PM EDT SCANNED EKG 06/09/2016 1:46 AM EST SMEAR REVIEW CHITO 06/05/2016 10:30 AM EST DIFFERENTIAL CHITO 06/05/2016 10:30 AM EST CBC WITH DIFF CHITO 06/05/2016 10:30 AM EST BASIC METABOLIC PANEL CHITO 06/05/2016 10:30 AM EST SCANNED RHYTHM STRIPS 06/05/2016 8:28 AM EST SMEAR REVIEW CHITO 06/04/2016 9:23 AM EST DIFFERENTIAL CHITO 06/04/2016 9:23 AM EST CBC WITH DIFF CHITO 06/04/2016 9:23 AM EST BASIC METABOLIC PANEL CHITO 06/04/2016 9:23 AM EST SCANNED RHYTHM STRIPS 06/04/2016 8:29 AM EST SCANNED RHYTHM STRIPS 06/03/2016 10:37 PM EST XR ABDOMEN AP CHITO 06/03/2016 12:00 PM EST SCANNED RHYTHM STRIPS 06/03/2016 9:25 AM EST DIFFERENTIAL Early AM 06/03/2016 5:15 AM EST CBC WITH DIFF Early AM 06/03/2016 5:15 AM EST BASIC METABOLIC PANEL Early AM 06/03/2016 5:15 AM EST SCANNED RHYTHM STRIPS 06/03/2016 1:16 AM EST FECAL HEME (FIT) CANCER SCREEN Routine 06/02/2016 12:00 PM EST SCANNED RHYTHM STRIPS 06/02/2016 11:29 AM EST SMEAR REVIEW Early AM 06/02/2016 5:41 AM EST DIFFERENTIAL Early AM 06/02/2016 5:41 AM EST CBC WITH DIFF Early AM 06/02/2016 5:41 AM EST BASIC METABOLIC PANEL Early AM 06/02/2016 5:41 AM EST C DIFF TOXIN DNA Routine 06/01/2016 5:15 PM EST SHIGA TOXIN Routine 06/01/2016 5:15 PM EST STOOL CULTURE (NO STAIN) Routine 06/01/2016 5:15 PM EST OVA AND PARASITE BASIC STAT 7 5:15 PM EST SCANNED RHYTHM STRIPS 06/01/2016 10:56 AM EST EC ECHOCARDIOGRAM COMPLETE W DOPPLER AND COLOR FLOW MAPPING Routine 06/01/2016 8:58 AM EST DIFFERENTIAL Early AM 06/01/2016 6:55 AM EST CBC WITH DIFF Early AM 06/01/2016 6:55 AM EST BASIC METABOLIC PANEL Early AM 06/01/2016 6:55 AM EST SCANNED RHYTHM STRIPS 05/31/2016 10:49 PM EST SCANNED RHYTHM STRIPS 05/31/2016 5:52 PM EST IP CONSULT TO SOCIAL WORK Routine 05/31/2016 5:41 PM EST TROPONIN-T Timed 05/31/2016 4:33 PM EST BASIC METABOLIC PANEL Timed 05/31/2016 4:33 PM EST URINALYSIS STAT 05/31/2016 4:03 PM EST URINE CULTURE (NO STAIN) Routine 05/31/2016 4:03 PM EST TROPONIN-T STAT 05/31/2016 11:32 AM EST BLOOD CULTURE (NO STAIN) STAT 05/31/2016 11:32 AM EST PHOSPHORUS LEVEL Routine 05/31/2016 11:3 2 AM EST MAGNESIUM LEVEL Routine 05/31/2016 11:32 AM EST BLOOD CULTURE (NO STAIN) STAT 05/31/2016 11:30 AM EST XR CHEST AP PORTABLE CHITO 05/31/2016 9:22 AM EST TROPONIN-T STAT 05/31/2016 9:18 AM EST DIFFERENTIAL STAT 05/31/2016 9:18 AM EST ABORH STAT 05/31/2016 9:18 AM EST PT / INR STAT 05/31/2016 9:18 AM EST CBC WITH DIFF STAT 05/31/2016 9:18 AM EST ANTIBODY SCREEN IGG STAT 05/31/2016 9 :18 AM EST LIPASE LEVEL STAT 05/31/2016 9:18 AM EST COMPREHENSIVE METABOLIC PANEL STAT 05/31/2016 9:18 AM EST EK EKG 12 LEAD STAT 05/31/2016 8:39 AM EST documented in this encounter Results * SCANNED RHYTHM STRIPS (07/04/2016 3:10 PM EDT) Anatomical Region Laterality Modality Other 07/04/2016 3:10 PM EDT us Unknown Unknown IMG ECG ORDERABLES Edited Result - Final * SCANNED EKG (06/09/2016 1:46 AM EST) Anatomical Region Laterality Modality Other 06/09/2016 1:46 AM EST us Unknown Unknown IMG ECG ORDERABLES Final Result * SMEAR REVIEW (06/05/2016 10:30 AM EST) Bands 6 0 - 10 % [facility] Atyp Lymph 3 0 - 5 % [facility] Aniso Slight [facility] Polychrom Slight [facility] Ovalocyte Occasional [facility] Teardrop Cell Occasional [facility] Blood specimen (specimen) 06/05/2016 10:30 AM EST 06/05/2016 10:43 AM EST us Elena Zamora MD HEMATOLOGY ORDERABL ES Final Result Performing Organization Address [facility]/ZIP Co de Phone Number [facility] [address] [place] [address] * DIFFERENTIAL (06/05/2016 10:30 AM EST) Neut Percent 54.9 % [facility] Lymph Percent 23.1 % [facility] [place] Percent 13.2 % [facility] Eos Percent 7.8 % [facility] Baso Percent 1.0 % [facility] Neut# 2.0 1.8 - 7.7 x10(3)/mcL [facility] Lymph# 0.8 0.6 - 4.8 x10(3)/[facility] [place]# 0.5 0.0 - 1.3 x10(3)/[facility] Eos# 0.3 0.0 - 0.5 x10(3)/[facility] Baso# 0.0 0.0 - 0.2 x10(3)/[facility] Blood specimen (specimen) 06/05/2016 10:30 AM EST 06/05/2016 10:43 AM EST us Elena Zamora MD HEMATOLOGY ORDERABL ES Final Result Performing Organization Address City/[facility]/ZIP Co de Phone Number [facility] [address] [place] [address] * (ABNORMAL) CBC WITH AUTO DIFF (06/05/2016 10:30 AM EST) WBC 3.6(L) 4.0 - 11.0 x10(3)/mcL [facility] RBC 4.15(L) 4.30 - 5.81 x10(6)/mcL [facility] Hgb 12.7(L) 13.5 - 17.1 gm/dL [facility] Hct 38.2(L) 38.9 - 51.6 % [facility] MCV 92.2 82.5 - 99.8 fL [facility] MCH 30.5 27.0 - 34.3 pg [facility] MCHC 33.1 32.1 - 35.3 gm/dL [facility] RDW 13.3 11.5 - 15.0 % [facility] Platelet 171 144 - 423 x10(3)/mcL [facility] MPV 7.2 6.8 - 10.8 fL [facility] Blood specimen (specimen) UPPER LIMB STRUCTURE / Unknown 06/05/2016 10:30 AM EST 06/05/2016 10:43 AM EST us Elena Zamora MD HEMATOLOGY ORDERABL ES Final Result [facility] [address] [place] [address] * (ABNORMAL) BASIC METABOLIC PANEL (06/05/2016 10:30 AM EST) Sodium 141 136 - 145 mmol/L [facility] Potassium 4.6 3.5 - 5.0 mmol/L [facility] Chloride 107 98 - 107 mmol/L [facility] Total CO2 23 22 - 29 mmol/L [facility] Anion Gap 11 7 - 16 mmol/L [facility] Calcium 8.2(L) 8.8 - 10.2 mg/dL [facility] Glucose Lvl 113(H) 82 - 100 mg/dL [facility] BUN 12 8 - 23 mg/dL [facility] Creatinine 1.28 0.67 - 1.30 mg/dL [facility] GFR Afr Am >60 [facility] GFR Non Afr Am 56 [facility] Blood specimen (specimen) UPPER LIMB STRUCTURE / Unknown 06/05/2016 10:30 AM EST 06/05/2016 10:43 AM EST us Elena Zamora MD CHEMISTRY ORDERABLE S Edited Result - Final Performing Organization Address [facility] [place] [address] * SCANNED RHYTHM STRIPS (06/05/2016 8:28 AM EST) Anatomical Region Laterality Modality Other 06/05/2016 8:28 AM EST us Unknown Unknown IMG ECG ORDERABLES Final Result * (ABNORMAL) SMEAR REVIEW (06/04/2016 9:23 AM EST) Bands 13(H) 0 - 10 % [facility] Atyp Lymph 2 0 - 5 % [facility] Aniso Slight [facility] Blood specimen (specimen) 06/04/2016 9:23 AM EST 06/04/2016 9:34 AM EST us Carline Fair MD HEMATOLOGY ORDERABLES [place] [address] * DIFFERENTIAL (06/04/2016 9:23 AM EST) Neut Percent 55.0 % [facility] Lymph Percent 21.6 % [facility] [place] Percent 15.2 % [facility] Eos Percent 7.6 % [facility] Baso Percent 0.6 % [facility] Neut# 2.0 1.8 - 7.7 x10(3)/mcL [facility] Lymph# 0.8 0.6 - 4.8 x10(3)/mcL [facility] [place]# 0.5 0.0 - 1.3 x10(3)/mcL [facility] Eos# 0.3 0.0 - 0.5 x10(3)/mcL [facility] Baso# 0.0 0.0 - 0.2 x10(3)/mcL [facility] Blood specimen (specimen) 06/04/2016 9:23 AM EST 06/04/2016 9:34 AM EST Carline Fair MD HEMATOLOGY ORDERABLES Final Re sult Performing Organization Address City/[facility] Co de Phone Number [facility] [address] [place] [address] * (ABNORMAL) BASIC METABOLIC PANEL (06/04/2016 9:23 AM EST) [facility] Sodium 143 136 - 145 mmol/L [facility] Potassium 5.1(H) 3.5 - 5.0 mmol/L [facility] Chloride 113(H) 98 - 107 mmol/L [facility] Total CO2 20(L) 22 - 29 mmol/L [facility] Anion Gap 10 7 - 16 mmol/L [facility] Calcium 8.1(L) 8.8 - 10.2 mg/dL [facility] Glucose Lvl 115(H) 82 - 100 mg/dL [facility] BUN 10 8 - 23 mg/dL [facility] Creatinine 1.32(H) 0.67 - 1.30 mg/dL [facility] GFR Afr Am >60 [facility] GFR Non Afr Am 54 [facility] Blood specimen (specimen) UPPER LIMB STRUCTURE / Unknown 06/04/2016 9:23 AM EST 06/04/2016 9:34 AM EST Carline Fair MD CHEMISTRY ORDERABLES Edited Re sult - Final Performing Organization Address City/[facility]/ZIP Co de Phone Number [facility] [address] [place] [address] * (ABNORMAL) CBC WITH AUTO DIFF (06/04/2016 9:23 AM EST) [facility] WBC 3.6(L) 4.0 - 11.0 x10(3)/mcL [facility] RBC 3.81(L) 4.30 - 5.81 x10(6)/[facility] LABORATORY Hgb 11.8(L) 13.5 - 17.1 gm/dL [facility] Hct 35.1(L) 38.9 - 51.6 % [facility] MCV 92.2 82.5 - 99.8 fL [facility] MCH 31.1 27.0 - 34.3 pg [facility] MCHC 33.7 32.1 - 35.3 gm/dL [facility] RDW 13.4 11.5 - 15.0 % [facility] Platelet 157 144 - 423 x10(3)/mcL [facility] MPV 7.3 6.8 - 10.8 fL [facility] Blood specimen (specimen) UPPER LIMB STRUCTURE / Unknown 06/04/2016 9:23 AM EST 06/04/2016 9:34 AM EST us Carline Fair MD HEMATOLOGY ORDERABLES Final Re sult [facility] [address] [place] [address] * SCANNED RHYTHM STRIPS (06/04/2016 8:29 AM EST) Anatomical Region Laterality Modality Other 06/04/2016 8:29 AM EST us Unknown Unknown IMG ECG ORDERABLES Final Result * SCANNED RHYTHM STRIPS (06/03/2016 10:37 PM EST) Anatomical Region Laterality Modality Other 06/03/2016 10:3 7 PM EST us Unknown Unknown IMG ECG ORDERABLES Final Result * XR ABDOMEN AP (06/03/2016 12:00 PM EST) Anatomical Region Laterality Modality Abdomen Radio Fluoroscop y 06/03/2016 12:0 0 PM EST Impressions 06/03/2016 12:32 PM EST No evidence of ileus or obstructive pattern. No increased stool pattern. Narrative 06/03/2016 12:32 PM EST 06/03/2016 time 11:36 AM EXAM: Single view abdomen. HISTORY: Diarrhea possible bowel obstruction. COMPARISON: None FINDINGS: The bowel gas pattern is nonspecific. There is no obvious ileus or obstructive pattern. The large and small bowel loops are nondistended. There is no increased stool pattern. There is no increased stool in the rectal region. Procedure Note Mickey Frey III, MD - 06/03/2016 06/03/2016 time 11:36 AM EXAM: Single view abdomen. HISTORY: Diarrhea possible bowel obstruction. COMPARISON: None FINDINGS: The bowel gas pattern is nonspecific. There is no obvious ileusor obstructive pattern. The large and small bowel loops are nondistended.There is no increased stool pattern. There is no increased stool in the rectalregion. IMPRESSION: No evidence of ileus or obstructive pattern. No increased stool pattern. Meghan Amador MD IMG DIAGNOSTIC IMAGING ORDER MONTY Final Result * SCANNED RHYTHM STRIPS (06/03/2016 9:25 AM EST) Anatomical Region Laterality Modality Other 06/03/2016 9:25 AM EST us Unknown Unknown IMG ECG ORDERABLES Final Result * DIFFERENTIAL (06/03/2016 5:15 AM EST) Neut Percent 61.9 % [facility] Lymph Percent 19.3 % [facility] [place] Percent 14.9 % [facility] Eos Percent 3.4 % [facility] Baso Percent 0.5 % [facility] Neut# 1.9 1.8 - 7.7 x10(3)/mcL [facility] Lymph# 0.6 0.6 - 4.8 x10(3)/mcL [facility] [place]# 0.5 0.0 - 1.3 x10(3)/mcL [facility] Eos# 0.1 0.0 - 0.5 x10(3)/mcL [facility] Baso# 0.0 0.0 - 0.2 x10(3)/mcL [facility] Blood specimen (specimen) 06/03/2016 5:15 AM EST 06/03/2016 5:46 AM EST Gabriele Soto MD HEMATOLOGY ORDERABLES Final Result Performing Organization Address [facility] [place] [address] * (ABNORMAL) BASIC METABOLIC PANEL (06/03/2016 5:15 AM EST) Pathologist [facility] Sodium 147(H) 136 - 145 mmol/L [facility] Potassium 4.3 3.5 - 5.0 mmol/L [facility] Chloride 119(H) 98 - 107 mmol/L [facility] Total CO2 14(L) 22 - 29 mmol/L [facility] Anion Gap 14 7 - 16 mmol/L [facility] Calcium 7.6(L) 8.8 - 10.2 mg/dL [facility] Glucose Lvl 126(H) 82 - 100 mg/dL [facility] BUN 20 8 - 23 mg/dL [facility] Creatinine 1.77(H) 0.67 - 1.30 mg/dL [facility] GFR [facility]fr [facility] GFR Non Afr Am [address] [facility] Blood specimen (specimen) UPPER LIMB STRUCTURE / Unknown 06/03/2016 5:15 AM EST 06/03/2016 5:46 AM EST Gabriele Soto MD CHEMISTRY ORDERABLES Final R esult Performing Organization Address City/[facility] [place] [address] * (ABNORMAL) CBC WITH AUTO DIFF (06/03/2016 5:15 AM EST) Pathologist [facility] [place] WBC 3.1(L) 4.0 - 11.0 x10(3)/mcL [facility] Comment:No significant anderson e from previous manual review RBC 3.73(L) 4.30 - 5.81 x10(6)/mcL [facility] Hgb 11.6(L) 13.5 - 17.1 gm/dL [facility] Hct 34.6(L) 38.9 - 51.6 % [facility] MCV 92.7 82.5 - 99.8 fL [facility] MCH 31.1 27.0 - 34.3 pg [facility] MCHC 33.6 32.1 - 35.3 gm/dL [facility] RDW 13.4 11.5 - 15.0 % [facility] Platelet 166 144 - 423 x10(3)/mcL [facility] MPV 7.9 6.8 - 10.8 fL [facility] Blood specimen (specimen) UPPER LIMB STRUCTURE / Unknown 06/03/2016 5:15 AM EST 06/03/2016 5:46 AM EST Gabriele Soto MD HEMATOLOGY ORDERABLES Final Result Performing Organization Address [facility] [place] [address] * SCANNED RHYTHM STRIPS (06/03/2016 1:16 AM EST) Anatomical Region Laterality Modality Other 06/03/2016 1:16 AM EST us Unknown Unknown IMG ECG ORDERABLES Final Result * FECAL HEME SCREEN (06/02/2016 12:00 PM EST) Final Negative immunochemical fecal occult blood test Internal QC ok This test is not recommended to detect upper GI bleeding. [facility] Stool specimen (specimen) 06/02/2016 12:00 PM EST 06/02/2016 3:39 PM EST Narrative [facility] - 06/02/2016 3:39 PM EST From rectal tube sample. Gabriele Soto MD IMMUNOLOGY ORDERABLES Final Result Performing Organization Address [facility] [place] [address] * SCANNED RHYTHM STRIPS (06/02/2016 11:29 AM EST) Anatomical Region Laterality Modality Other 06/02/2016 11:2 9 AM EST Unknown Unknown IMG ECG ORDERABLES Final Result * SMEAR REVIEW (06/02/2016 5:41 AM EST) Myelo 1 % [facility] Atyp Lymph 1 0 - 5 % [facility] RBC Morph Normal [facility] Blood specimen (specimen) 06/02/2016 5:41 AM EST 06/02/2016 5:47 AM EST Gabriele Soto MD HEMATOLOGY ORDERABLES Final Result Performing Organization Address City/[facility]/[place] [address] * DIFFERENTIAL (06/02/2016 5:41 AM EST) Pathologist [facility] [place] Neut Percent 65.8 % [facility] Lymph Percent 16.7 % [facility] [place] Percent 14.3 % [facility] Eos Percent 2.8 % [facility] Baso Percent 0.4 % [facility] Neut# 2.2 1.8 - 7.7 x10(3)/mcL [facility] Lymph# 0.6 0.6 - 4.8 x10(3)/mcL [facility] [place]# 0.5 0.0 - 1.3 x10(3)/mcL [facility] Eos# 0.1 0.0 - 0.5 x10(3)/mcL [facility] Baso# 0.0 0.0 - 0.2 x10(3)/mcL [facility] Blood specimen (specimen) 06/02/2016 5:41 AM EST 06/02/2016 5:47 AM EST Gabriele Soto MD HEMATOLOGY ORDERABLES Final Result Performing Organization Address City/[facility]/[place] [address] * (ABNORMAL) BASIC METABOLIC PANEL (06/02/2016 5:41 AM EST) [facility] Sodium 144 136 - 145 mmol/L [facility] Potassium 3.8 3.5 - 5.0 mmol/L [facility] Chloride 115(H) 98 - 107 mmol/L [facility] Total CO2 14(L) 22 - 29 mmol/L [facility] Anion Gap 15 7 - 16 mmol/L [facility] Calcium 7.6(L) 8.8 - 10.2 mg/dL [facility] Glucose Lvl 97 82 - 100 mg/dL [facility] BUN 37(H) 8 - 23 mg/dL [facility] Creatinine 2.50(H) 0.67 - 1.30 mg/dL [facility] GFR Afr Am 31 [facility] GFR Non Afr Am 26 [facility] Blood specimen (specimen) UPPER LIMB STRUCTURE / Unknown 06/02/2016 5:41 AM EST 06/02/2016 5:48 AM EST us Gabriele Soto MD CHEMISTRY ORDERABLES Edited Result - Final [facility] [address] [place] [address] * (ABNORMAL) CBC WITH AUTO DIFF (06/02/2016 5:41 AM EST) [facility] WBC 3.4(L) 4.0 - 11.0 x10(3)/mcL [facility] RBC 3.69(L) 4.30 - 5.81 x10(6)/mcL [facility] Hgb 11.5(L) 13.5 - 17.1 gm/dL [facility] Hct 34.1(L) 38.9 - 51.6 % [facility] MCV 92.4 82.5 - 99.8 fL [facility] MCH 31.3 27.0 - 34.3 pg [facility] MCHC 33.8 32.1 - 35.3 gm/dL [facility] RDW 13.4 11.5 - 15.0 % [facility] Platelet 153 144 - 423 x10(3)/mcL [facility] MPV 7.7 6.8 - 10.8 fL [facility] Blood specimen (specimen) UPPER LIMB STRUCTURE / Unknown 06/02/2016 5:41 AM EST 06/02/2016 5:47 AM EST Gabriele Soto MD HEMATOLOGY ORDERABLES Final Result Performing Organization Address [facility] Co de Phone Number [facility] [address] [place] [address] * OVA AND PARASITE BASIC (06/01/2016 5:15 PM EST) Final Negative: ??Giardia lamblia antigen not detected. Negative: ??Cryptospori dium antigen not detected. Internal QC ok The O and P vial will be saved for 1 week. If extended O and P is desired, ??please call Micro at . [facility] Stool specimen (specimen) 06/01/2016 5:15 PM EST 06/01/2016 6:52 PM EST Gabriele Soto MD MICROBIOLOGY - GENERAL ORDER MONTY Final Result Performing Organization Address [facility] [place] [address] * C DIFF TOXIN DNA (06/01/2016 5:15 PM EST) C. Diff Toxin DNA Negative [facility] Comment:Toxin producing C. d ifficile target DNA sequences are not detected. Stool specimen (specimen) 06/01/2016 5:15 PM EST 06/01/2016 5:20 PM EST Narrative [facility] - 06/01/2016 6:29 PM EST PCR C diff testing may lead to false positives when ordered inappropriately. The test may not be appropriate if the patient has any of the following: recent laxative administration, recent C diff diagnosis, or <3 loose bowel movements in the past 24 hrs.->Test clinically indicated Gabriele Soto MD MICROBIOLOGY - GENERAL ORDER MONTY Final Result Performing Organization Address [facility]/ZIP Co de Phone Number [facility] [address] [place] [address] * SHIGA TOXIN (06/01/2016 5:15 PM EST) Final Shiga toxin result: ??Negative Shiga toxins (produced by E. coli) not detected. Internal QC ok [facility] Stool specimen (specimen) 06/01/2016 5:15 PM EST 06/01/2016 6:52 PM EST us Gabrieel Soto MD MICROBIOLOGY - GENERAL ORDER MONTY Final Result Performing Organization Address [facility] [place] [address] * STOOL CULTURE (06/01/2016 5:15 PM EST) Final Stool culture: ??No growth of enteric pathogens including Salmonella, Shigella, Campylobacter, Vibrio, Yersinia, Aeromonas, ??Plesiomonas or E. coli O157. No growth of normal enteric harvey [facility] Stool specimen (specimen) 06/01/2016 5:15 PM EST 06/01/2016 5:25 PM EST us Gabriele Soto MD MICROBIOLOGY - GENERAL ORDER MONTY Final Result Performing Organization Address [facility] [place] [address] * SCANNED RHYTHM STRIPS (06/01/2016 10:56 AM EST) Anatomical Region Laterality Modality Other 06/01/2016 10:5 6 AM EST us Unknown Unknown IMG ECG ORDERABLES Final Result * EC ECHOCARDIOGRAM COMPLETE W DOPPLER AND COLOR FLOW MAPPING (06/01/2016 8:58 AM EST) Ejection Fraction 55-60 % [place] Anatomical Region Laterality Modality Electrocardiogra phy 06/01/2016 7:49 AM EST Impressions 06/01/2016 1:42 PM EST ??CONCLUSIONS ??Poor quality study. ??Normal LV size and function. LVEF 55-60%. ??Grade 1 diastolic dysfunction. ??Normal right ventricular size and function. ??Trace mitral regurgitation. ??Trace tricuspid regurgitation. ??Valves are not well visualized Narrative Procedure Note Iggy Bowden MD - 06/01/2016 IMPRESSION CONCLUSIONS Poor quality study. Normal LV size and function. LVEF 55-60%. Grade 1 diastolic dysfunction. Normal right ventricular size and function. Trace mitral regurgitation. Trace tricuspid regurgitation. Valves are not well visualized Gabriele Soto MD IMG ECHO ORDERABLES Final Re sult * DIFFERENTIAL (06/01/2016 6:55 AM EST) Neut Percent 74.9 % [facility] Lymph Percent 11.6 % [facility] [place] Percent 12.1 % [facility] Eos Percent 1.0 % [facility] Baso Percent 0.4 % [facility] Neut# 3.9 1.8 - 7.7 x10(3)/[facility] LAB[facility] Lymph# 0.6 0.6 - 4.8 x10(3)/[facility] [place]# 0.6 0.0 - 1.3 x10(3)/[facility] Eos# 0.1 0.0 - 0.5 x10(3)/[facility] Baso# 0.0 0.0 - 0.2 x10(3)/[facility] Blood specimen (specimen) 06/01/2016 6:55 AM EST 06/01/2016 7:15 AM EST Gabriele Soto MD HEMATOLOGY ORDERABLES Final Result [facility] [address] [place] [address] * (ABNORMAL) BASIC METABOLIC PANEL (06/01/2016 6:55 AM EST) Sodium 134(L) 136 - 145 mmol/L [facility] Potassium 3.8 3.5 - 5.0 mmol/L [facility] Chloride 104 98 - 107 mmol/L [facility] Total CO2 13(L) 22 - 29 mmol/L [facility] Anion Gap 17(H) 7 - 16 mmol/L [facility] Calcium 7.6(L) 8.8 - 10.2 mg/dL [facility] Glucose Lvl 85 82 - 100 mg/dL [facility] BUN 52(H) 8 - 23 mg/dL [facility] Creatinine 4.18(H) 0.67 - 1.30 mg/dL [facility] GFR Afr Am 17 [facility] GFR Non Afr Am 14 [facility] Blood specimen (specimen) UPPER LIMB STRUCTURE / Unknown 06/01/2016 6:55 AM EST 06/01/2016 7:15 AM EST us Gabriele Soto MD CHEMISTRY ORDERABLES Final R esult [facility] [address] [place] [address] * (ABNORMAL) CBC WITH AUTO DIFF (06/01/2016 6:55 AM EST) WBC 5.2 4.0 - 11.0 x10(3)/mcL [facility] RBC 3.66(L) 4.30 - 5.81 x10(6)/mcL [facility] Hgb 11.5(L) 13.5 - 17.1 gm/dL [facility] Hct 33.9(L) 38.9 - 51.6 % [facility] MCV 92.6 82.5 - 99.8 fL [facility] MCH 31.3 27.0 - 34.3 pg [facility] MCHC 33.8 32.1 - 35.3 gm/dL [facility] RDW 13.2 11.5 - 15.0 % [facility] Platelet 145 144 - 423 x10(3)/mcL [facility] MPV 7.8 6.8 - 10.8 fL [facility] Blood specimen (specimen) UPPER LIMB STRUCTURE / Unknown 06/01/2016 6:55 AM EST 06/01/2016 7:15 AM EST us Gabriele Soto MD HEMATOLOGY ORDERABLES Final Result [facility] [address] [place] [address] * SCANNED RHYTHM STRIPS (05/31/2016 10:49 PM EST) Anatomical Region Laterality Modality Other 05/31/2016 10:4 9 PM EST us Unknown Unknown IMG ECG ORDERABLES Final Result * SCANNED RHYTHM STRIPS (05/31/2016 5:52 PM EST) Anatomical Region Laterality Modality Other 05/31/2016 5:52 PM EST Unknown Unknown IMG ECG ORDERABLES Final Result * (ABNORMAL) BASIC METABOLIC PANEL (05/31/2016 4:33 PM EST) Sodium 137 136 - 145 mmol/L [facility] Potassium 4.2 3.5 - 5.0 mmol/L [facility] Chloride 106 98 - 107 mmol/L [facility] Total CO2 14(L) 22 - 29 mmol/L [facility] Anion Gap 17(H) 7 - 16 mmol/L [facility] Calcium 7.6(L) 8.8 - 10.2 mg/dL [facility] Glucose Lvl 104(H) 82 - 100 mg/dL [facility] BUN 51(H) 8 - 23 mg/dL [facility] Creatinine 5.40(H) 0.67 - 1.30 mg/dL [facility] GFR Afr Am 13 [facility] GFR Non Afr Am 11 [facility] Blood specimen (specimen) UPPER LIMB STRUCTURE / Unknown 05/31/2016 4:33 PM EST 05/31/2016 4:34 PM EST us Gabriele Soto MD CHEMISTRY ORDERABLES Final R esult Performing Organization Address City/[facility]/[place]IP [place] [address] * TROPONIN-T (05/31/2016 4:33 PM EST) Troponin-T <0.01 <=0.00 ng/mL [facility] Comment: Values > or = 0.01 ng/mL have been shown to have prognostic value. Blood specimen (specimen) 05/31/2016 4:33 PM EST 05/31/2016 4:34 PM EST us Betzy Burns MD CHEMISTRY ORDERABLES Final Result Performing Organization Address [facility] [place] [address] * URINE CULTURE (05/31/2016 4:03 PM EST) Pathologist [facility] [place] Final 100,000 cfu/ml Klebsiella pneumoniae [facility] Organism Klebsiella pneumoniae [facility] Urine specimen (specimen) (Catheter, Johnson) 05/31/2016 4:03 PM EST 05/31/2016 4:31 PM EST Narrative Organism Antibiotic Method Susceptibility Klebsiella pneumoniae Amikacin MINIMUM INHIBITORY CONCENTRATION <=16: Susceptible Klebsiella pneumoniae Amoxicillin/Clavulanate MINIMUM INHIBITORY CONCENTRATION 16/8: Intermediate Klebsiella pneumoniae Ampicillin/Sulbactam MINIMUM INHIBITORY CONCENTRATION >16/8: Resistant Klebsiella pneumoniae Aztreonam MINIMUM INHIBITORY CONCENTRATION <=4: Susceptible Klebsiella pneumoniae Cefazolin MINIMUM INHIBITORY CONCENTRATION 8: Susceptible Klebsiella pneumoniae Cefoxitin MINIMUM INHIBITORY CONCENTRATION <=8: Susceptible Klebsiella pneumoniae Ciprofloxacin MINIMUM INHIBITORY CONCENTRATION <=1: Susceptible Klebsiella pneumoniae Ertapenem MINIMUM INHIBITORY CONCENTRATION <=0.5: Susceptible Klebsiella pneumoniae Gentamicin MINIMUM INHIBITORY CONCENTRATION <=1: Susceptible Klebsiella pneumoniae Imipenem MINIMUM INHIBITORY CONCENTRATION <=0.5: Susceptible Klebsiella pneumoniae Levofloxacin MINIMUM INHIBITORY CONCENTRATION <=0.25: Susceptible Klebsiella pneumoniae Meropenem MINIMUM INHIBITORY CONCENTRATION <=1: Susceptible Klebsiella pneumoniae Nitrofurantoin MINIMUM INHIBITORY CONCENTRATION <=32: Susceptible Klebsiella pneumoniae Piperacillin MINIMUM INHIBITORY CONCENTRATION >64: Resistant Klebsiella pneumoniae Piperacillin/Tazobactam MINIMUM INHIBITORY CONCENTRATION <=4: Susceptible Klebsiella pneumoniae Tetracycline MINIMUM INHIBITORY CONCENTRATION <=4: Susceptible Klebsiella pneumoniae Ticar/ K Clav MINIMUM INHIBITORY CONCENTRATION <=8: Susceptible Klebsiella pneumoniae Tobramycin MINIMUM INHIBITORY CONCENTRATION <=1: Susceptible Klebsiella pneumoniae Trimethoprim/Sulfametho xazole MINIMUM INHIBITORY CONCENTRATION <=2/38: Susceptible Gabriele Soto MD MICROBIOLOGY - GENERAL ORDER MONTY Final Result Performing Organization Address [facility] Co de Phone Number [address] [address] * (ABNORMAL) URINALYSIS (05/31/2016 4:03 PM EST) UA Color Yellow [facility] UA Appear Cloudy(A) Clear [facility] UA Glucose Negative Negative [facility] Ketones Negative Negative [facility] UA Blood Large(A) Negative [facility] UA pH 5.0 4.8 - 8.0 [facility] Comment:Reference range ghazala d for random specimens only. UA Protein 100 mg/dl(A) Negative [facility] UA Urobilinogen Normal <=1 mg/dl [facility] UA Nitrite Negative Negative [facility] UA Leuk Est Large(A) Negative [facility] UA Spec Grav 1.016 1.001 - 1.035 [facility] Comment:Reference range ghazala d for random specimens only. UA WBC >182(H) 0 - 4 /HPF [facility] UA RBC 124(H) 0 - 3 /HPF [facility] UA Mucus 1+ [facility] UA Bacteria 2+(A) [facility] UA Hyal Cast 83(H) 0 - 2 /LPF [facility] Urine specimen (specimen) (Catheter, Johnson) 05/31/2016 4:03 PM EST 05/31/2016 4:03 PM EST Betzy Burns MD URINE ORDERABLES Final Res ult Performing Organization Address City/[facility] Co de Phone Number [address] [place] [address] * BLOOD CULTURE (05/31/2016 11:32 AM EST) Final No growth at 5 days. [facility] Blood specimen (specimen) 05/31/2016 11:32 AM EST 05/31/2016 11:35 AM EST Narrative [facility] - 06/05/2016 3:01 PM EST Draw Type->Peripheral us Betzy Burns MD MICROBIOLOGY - GENERAL ORD ERABLES Final Result Performing Organization Address City/[facility]/ZIP Co de Phone Number [facility] [address] [place] [address] * PHOSPHORUS LEVEL (05/31/2016 11:32 AM EST) Pathologist [facility] [place] Phosphorus 3.7 2.5 - 4.5 mg/dL [facility] Blood specimen (specimen) UPPER LIMB STRUCTURE / Unknown 05/31/2016 11:32 AM EST 05/31/2016 12:46 PM EST Gabriele Soto MD CHEMISTRY ORDERABLES Final R esult Performing Organization Address [facility] Co de Phone Number [facility] [address] [place] [address] * MAGNESIUM LEVEL (05/31/2016 11:32 AM EST) Magnesium 2.3 1.6 - 2.4 mg/dL [facility] Blood specimen (specimen) UPPER LIMB STRUCTURE / Unknown 05/31/2016 11:32 AM EST 05/31/2016 12:46 PM EST Gabriele Soto MD CHEMISTRY ORDERABLES Final R esult Performing Organization Address [facility] Co de Phone Number [facility] [address] [place] [address] * TROPONIN-T (05/31/2016 11:32 AM EST) Troponin-T <0.01 <=0.00 ng/mL [facility] Comment: Values > or = 0.01 ng/mL have been shown to have prognostic value. Blood specimen (specimen) 05/31/2016 11:32 AM EST 05/31/2016 11:35 AM EST us Betzy Burns MD CHEMISTRY ORDERABLES Final Result Performing Organization Address [facility] Co de Phone Number [facility] [address] [place] [address] * BLOOD CULTURE (05/31/2016 11:30 AM EST) Final No growth at 5 days. [facility] Blood specimen (specimen) 05/31/2016 11:30 AM EST 05/31/2016 11:35 AM EST Narrative [facility] - 06/05/2016 3:01 PM EST Draw Type->Peripheral us Betzy Burns MD MICROBIOLOGY - GENERAL ORD ERABLES Final Result Performing Organization Address [facility] [place] [address] * XR CHEST AP PORTABLE (05/31/2016 9:22 AM EST) Anatomical Region Laterality Modality Chest Radiographic Kelsey ging 05/31/2016 9:22 AM EST Impressions 05/31/2016 9:37 AM EST Questionable mild CHF. No definite areas of focal consolidation. Narrative 05/31/2016 9:37 AM EST XR CHEST AP PORTABLE ?? 05/31/2016 9:22 AM CLINICAL: -LOSS OF CONSCIOUSNESS COMPARISON: 02/27/2015 time 11:49 AM FINDINGS: The cardiopericardial silhouette is mildly enlarged. There is some ill definition of pulmonary vessels which may indicate early pulmonary edema. No focal areas of consolidation. Procedure Note Mickey Frey III, MD - 05/31/2016 XR CHEST AP PORTABLE 05/31/2016 9:22 AM CLINICAL: -LOSS OF CONSCIOUSNESS COMPARISON: 02/27/2015 time 11:49 AM FINDINGS: The cardiopericardial silhouette is mildly enlarged. There issome ill definition of pulmonary vessels which may indicate early pulmonary edema.No focal areas of consolidation. IMPRESSION: Questionable mild CHF. No definite areas of focal consolidation. us Betzy Burns MD IMG DIAGNOSTIC IMAGING ORD ERABLES Final Result * (ABNORMAL) DIFFERENTIAL (05/31/2016 9:18 AM EST) Neut Percent 78.0 % [facility] Lymph Percent 7.8 % [facility] [place] Percent 13.7 % [facility] Eos Percent 0.2 % [facility] Baso Percent 0.3 % [facility] Neut# 5.1 1.8 - 7.7 x10(3)/mcL [facility] Lymph# 0.5(L) 0.6 - 4.8 x10(3)/mcL [facility] [place]# 0.9 0.0 - 1.3 x10(3)/mcL [facility] Eos# 0.0 0.0 - 0.5 x10(3)/mcL [facility] Baso# 0.0 0.0 - 0.2 x10(3)/mcL [facility] Blood specimen (specimen) 05/31/2016 9:18 AM EST 05/31/2016 9:27 AM EST us Betzy Burns MD HEMATOLOGY ORDERABLES Leanna l Result Performing Organization Address [facility] Co de Phone Number [facility] [address] [place] [address] * ANTIBODY SCREEN IGG (05/31/2016 9:18 AM EST) ABSC IgG Int Negative [facility] Blood specimen (specimen) 05/31/2016 9:18 AM EST 05/31/2016 9:27 AM EST us Betzy Burns MD BLOOD BANK ORDERABLES Leanna l Result Performing Organization Address [facility] [place] [address] * ABORH (05/31/2016 9:18 AM EST) ABORh Int A POS [facility] Blood specimen (specimen) 05/31/2016 9:18 AM EST 05/31/2016 9:27 AM EST us Betzy Burns MD BLOOD BANK ORDERABLES Leanna l Result Performing Organization Address [facility] [place] [address] * PT / INR (05/31/2016 9:18 AM EST) Pathologist [facility] PT 11.9 10.1 - 12.9 second(s) [facility] INR 1.03 0.88 - 1.12 [facility] Comment: Level of Therapy ??Indications ??Target INR Range Standard Dose Treatment and prophylaxis of venous 2.0 - 3.0 ??thrombosis, pulmonary embolism ?High Dose High risk patients with mechanical ?2.5 - 3.5 ??heart valves Blood specimen (specimen) UPPER LIMB STRUCTURE / Unknown 05/31/2016 9:18 AM EST 05/31/2016 9:27 AM EST us Betzy Burns MD HEMATOLOGY ORDERABLES Leanna l Result Performing Organization Address [facility] [place] [address] * (ABNORMAL) TROPONIN-T (05/31/2016 9:18 AM EST) Pathologist [facility] Troponin-T 0.01(H) <=0.00 ng/mL [facility] Comment: Values > or = 0.01 ng/mL have been shown to have prognostic value. Blood specimen (specimen) 05/31/2016 9:18 AM EST 05/31/2016 9:24 AM EST us Betzy Burns MD CHEMISTRY ORDERABLES Final Result Performing Organization Address [facility] [place] [address] * LIPASE LEVEL (05/31/2016 9:18 AM EST) Lipase Lvl 40 13 - 60 IU/L [facility] Blood specimen (specimen) UPPER LIMB STRUCTURE / Unknown 05/31/2016 9:18 AM EST 05/31/2016 9:24 AM EST Betzy Burns MD CHEMISTRY ORDERABLES Final Result [facility] [address] [place] [address] * (ABNORMAL) COMPREHENSIVE METABOLIC PANEL (05/31/2016 9:18 AM EST) Pathologist [facility] Sodium 136 136 - 145 mmol/L [facility] Potassium 4.8 3.5 - 5.0 mmol/L [facility] Chloride 101 98 - 107 mmol/L [facility] Total CO2 17(L) 22 - 29 mmol/L [facility] Anion Gap 18(H) 7 - 16 mmol/L [facility] Calcium 8.1(L) 8.8 - 10.2 mg/dL [facility] Glucose Lvl 106(H) 82 - 100 mg/dL [facility] BUN 49(H) 8 - 23 mg/dL [facility] Creatinine 6.44(H) 0.67 - 1.30 mg/dL [facility] Albumin 3.6 3.2 - 4.6 gm/dL [facility] Total Protein 7.6 6.4 - 8.3 gm/dL [facility] Bili Total 0.4 0.1 - 1.4 mg/dL [facility] AST 19 <=40 IU/L [facility] ALT 19 <=41 IU/L [facility] Alk Phos 60 40 - 129 IU/L [facility] GFR Afr Am 10 [facility] GFR Non Afr Am [address] [facility] Blood specimen (specimen) UPPER LIMB STRUCTURE / Unknown 05/31/2016 9:18 AM EST 05/31/2016 9:24 AM EST Betzy Burns MD CHEMISTRY ORDERABLES Final Result Performing Organization Address [facility] [place] [address] * (ABNORMAL) CBC WITH AUTO DIFF (05/31/2016 9:18 AM EST) [facility] WBC 6.5 4.0 - 11.0 x10(3)/mcL [facility] RBC 3.73(L) 4.30 - 5.81 x10(6)/mcL [facility] Hgb 11.9(L) 13.5 - 17.1 gm/dL [facility] Hct 35.2(L) 38.9 - 51.6 % [facility] MCV 94.2 82.5 - 99.8 fL [facility] MCH 31.8 27.0 - 34.3 pg [facility] MCHC 33.8 32.1 - 35.3 gm/dL [facility] RDW 13.2 11.5 - 15.0 % [facility] Platelet 166 144 - 423 x10(3)/[facility] MPV 7.6 6.8 - 10.8 fL [facility] Blood specimen (specimen) UPPER LIMB STRUCTURE / Unknown 05/31/2016 9:18 AM EST 05/31/2016 9:27 AM EST us Betzy Burns MD HEMATOLOGY ORDERABLES Leanna l Result Performing Organization Address [facility] [place] [address] * EK EKG 12 LEAD (05/31/2016 8:39 AM EST) Anatomical Region Laterality Modality Electrocardiogra phy 05/31/2016 8:45 AM EST Impressions 05/31/2016 4:57 PM EST ? Stationary ECG Study ?[facility] ? Interpretive Statements ? SINUS RHYTHM WITH FIRST DEGREE AV BLOCK Electronically Signed On 05-31-2016 16:57:07 EST by Melvin Winters MD Narrative Procedure Note Melvin Winters MD - 05/31/2016 IM[address] ECG Study [facility] Interpretive Statements SINUS RHYTHM WITH FIRST DEGREE AV BLOCK Electronically Signed On 05-31-2016 16:57:07 EST by Melvin Winters MD Betzy Burns MD IMG ECG ORDERABLES Final R esult documented in this encounter Visit Diagnoses Diagnosis Syncope- Primary Syncope and collapse Syncope, unspecified syncope type Diarrhea, unspecified type Dehydration Acute renal failure, unspecified acute renal failure type (HCC) MDD (major depressive disorder) Major depressive disorder, single episode, unspecified Combined systolic and diastolic congestive heart failure, NYHA class 4 (HCC) Essential hypertension Unspecified essential hypertension Paranoid schizophrenia (HCC) Paranoid schizophrenia, unspecified condition KARINA (acute kidney injury) (HCC) Acute kidney failure, unspecified Diarrhea in adult patient Diarrhea Hypovolemia due to dehydration Morbid obesity due to excess calories (HCC) Acute cystitis with hematuria Acute cystitis Moderate episode of recurrent major depressive disorder (HCC) Perineal rash in male Rash and other nonspecific skin eruption documented in this encounter Admitting Diagnoses Diagnosis Syncope Syncope and collapse KARINA (acute kidney injury) (HCC) Acute kidney failure, unspecified documented in this encounter Administered Medications Inactive Administered Medications - up to 1 most recent administrations Medication Order MAR Action Action Date Dose Rate Site 0.9 % NaCl infusion Intravenous, at 150 mL/hr, ONCE, 1 dose, On Mon05/31/16 at 1000 New Bag 05/31/2016 5:49 PM EST 150 mL/hr 0.9 % NaCl infusion Intravenous, at 200 mL/hr, CONTINUOUS, Starting on Mon06/01/16 at 0715, Until Mon06/01/16 at 1826 Rate/Dose Verify 06/01/2016 3:56 PM EST 200 mL/hr amLODIPine (NORVASC) tablet 2.5 mg 2.5 mg, Oral, DAILY, First dose on Mon06/03/16 at 0900, Until Discontinued Given 06/05/2016 10:13 AM EST 2.5 mg aspirin chewable tablet 81 mg 81 mg, Oral, DAILY, First dose on Mon05/31/16 at 1230, Until Discontinued Given 06/05/2016 10:13 AM EST 81 mg atorvastatin (LIPITOR) tablet 10 mg 10 mg, Oral, EVERY OTHER NIGHT, First dose on Mon05/31/16 at 2100, Until Discontinued, Therapeutic interchange for simvastatin (Zocor) 10mg daily Given 06/04/2016 10:26 PM EST 10 mg carvedilol (COREG) tablet 25 mg 25 mg, Oral, 2 TIMES DAILY, First dose on Mon06/03/16 at 0900, Until Discontinued Given 06/05/2016 10:13 AM EST 25 mg cefTRIAXone (ROCEPHIN) 1 g in sodium chloride 0.9 % 50 mL IVPB 1 g, Intravenous, ONCE, 1 dose, On Mon05/31/16 at 1115, Administer over 30 Minutes IV Started 05/31/2016 12:33 PM EST 1 g 100 mL/hr cefTRIAXone (ROCEPHIN) 1 gram/50 mL IVPB 1 g 1 g, Intravenous, EVERY 24 HOURS SCHEDULED (Daily), 7 doses, First dose on Mon06/01/16 at 0900, Last dose on Mon06/07/16 at 0900, Administer over 30 Minutes IV Started 06/01/2016 9:50 AM EST 1 g 100 mL/hr cephALEXin (KEFLEX) capsule 500 mg 500 mg, Oral, EVERY 12 HOURS SCHEDULED (2 times per day), 12 doses, First dose on Mon06/02/16 at 1000, Last dose on Mon06/07/16 at 2100 Given 06/05/2016 10:13 AM EST 500 mg dextrose 5 % and 0.45 % NaCl with KCl 20 mEq infusion Intravenous, at 100 mL/hr, CONTINUOUS, Starting on Caryn 06/02/16 at 0715, Until 06/04/16 at 1146 New Bag 06/04/2016 10:28 AM EST 100 mL/hr Donepezil (ARICEPT) Tab 23 mg 23 mg, Oral, NIGHTLY, First dose on Mon05/31/16 at 2100, Until Discontinued Given 06/04/2016 10:26 PM EST 23 mg doxazosin (CARDURA) tablet 2 mg 2 mg, Oral, NIGHTLY, First dose on Mon05/31/16 at 2100, Until Discontinued, Therapeutic Interchange for Terazosin (HYTRIN) 2mg cap Given 06/04/2016 10:26 PM EST 2 mg FLUoxetine (PROzac) capsule 40 mg 40 mg, Oral, 2 TIMES DAILY, First dose on Mon05/31/16 at 2100, Until Discontinued Given 06/05/2016 10:13 AM EST 40 mg heparin, porcine (PF) 5,000 unit/0.5 mL injection 5,000 Units 5,000 Units, Subcutaneous, EVERY 12 HOURS SCHEDULED (2 times per day), First dose on Mon05/31/16 at 2100, Until Discontinued Given 05/31/2016 8:28 PM EST 5,000 Units Right Lower Quadrant- Abdomen heparin, porcine (PF) 5,000 unit/0.5 mL injection 5,000 Units 5,000 Units, Subcutaneous, EVERY 8 HOURS SCHEDULED (3 times per day), First dose (after last modification) on Mon06/01/16 at 1400, Until Discontinued Given 06/05/2016 5:14 AM EST 5,000 Units Abdominal Tissue miconazole (MICATIN) 2 % powder Topical, EVERY 12 HOURS SCHEDULED (2 times per day), First dose on Mon05/31/16 at 2100, Until Discontinued, Application site: génesis under breasts Given 06/05/2016 9:00 AM EST miconazole (MICATIN) 2 % powder Topical, PRN, Starting on Mon05/31/16 at 1737, Until 06/05/16 at 1607, Wound Care, Application site: génesis, under breasts pantoprazole (PROTONIX) injection 40 mg 40 mg, Intravenous, ONCE, 1 dose, On Mon05/31/16 at 0930, Dilute with 10 mL of 0.9% NaCl. Administer over 2 minutes. Given 05/31/2016 12:14 PM EST 40 mg pantoprazole (PROTONIX) injection 40 mg 40 mg, Intravenous, DAILY, First dose on Mon05/31/16 at 1230, Until Discontinued, Dilute with 10 mL of 0.9% NaCl. Administer over 2 minutes. pantoprazole (PROTONIX) tablet 40 mg 40 mg, Oral, DAILY, First dose on Mon05/31/16 at 1230, Until Discontinued, Do not crush or chew Given 06/05/2016 10:13 AM EST 40 mg QUEtiapine (SEROquel) tablet 25 mg 25 mg, Oral, 2 TIMES DAILY, First dose on Mon05/31/16 at 2100, Until Discontinued Given 06/05/2016 10:13 AM EST 25 mg risperiDONE (RisperDAL) tablet 4 mg 4 mg, Oral, 2 TIMES DAILY, First dose on Mon05/31/16 at 2100, Until Discontinued Given 06/05/2016 10:13 AM EST 4 mg Saccharomyces boulardii (FLORASTOR) capsule 250 mg 250 mg, Oral, 2 TIMES DAILY, First dose on Mon06/02/16 at 1000, Until Discontinued Given 06/05/2016 10:13 AM EST 250 mg sodium chloride 0.9 % 1,000 mL IV bolus Intravenous, ONCE, 1 dose, On Mon05/31/16 at 0900, at 1,935.5 mL/hr IV Started 05/31/2016 9:30 AM EST 1935.5 mL/hr sodium chloride 0.9 % 500 mL IV bolus Intravenous, ONCE, 1 dose, On Mon05/31/16 at 0930, at 967.7 mL/hr IV Started 05/31/2016 10:00 AM EST 967.7 mL/hr sodium chloride 0.9 % 500 mL IV bolus Intravenous, ONCE, 1 dose, On Mon05/31/16 at 1000, at 967.7 mL/hr IV Started 05/31/2016 10:30 AM EST 967.7 mL/hr documented in this encounter Discontinued Medications Medication Sig Discontinue Reason Start Date End Da te potassium chloride (MICRO-K) 10 mEq CR capsule Take 20 mEq by mouth 2 times daily. Stop Taking at Discharge 06/05/2016 fUROsemide (LASIX) 40 mg Oral Tablet Take 40 mg by mouth every 12 hours. Stop Taking at Discharge 06/05/2016 documented as of this encounter Historical Medications * This list may reflect changes made after this encounter. ergocalciferol (VITAMIN D) 50,000 unit Oral Capsule Take by mouth once a week. 07/19/2017 QUEtiapine (SEROQUEL) 25 mg Oral Tablet Take by mouth 2 times daily. 06/14/2017 Donepezil (ARICEPT) 23 mg Oral Tablet Take by mouth nightly. 07/19/2017 loperamide (IMODIUM) 2 mg Oral Capsule Take by mouth 2 times daily. 07/19/2017 added in this encounter Active and Recently Administered Medications Times are shown in EST. Scheduled Medication Order 06/03/2016 06/04/2016 06/05/2016 amLODIPine (NORVASC) tablet 2.5 mg 2.5 mg, Oral, DAILY, First dose on Mon06/03/16 at 0900, Until Discontinued 1008 (Given - Provider: Bambi Mcintosh RN) 1000 (Given - Provider: Jo Youssef RN) 1013 (Given - Provider: Jo Youssef RN) aspirin chewable tablet 81 mg 81 mg, Oral, DAILY, First dose on Mon05/31/16 at 1230, Until Discontinued 1008 (Given - Provider: Bambi Mcintosh RN) 1000 (Given - Provider: Jo Youssef RN) 1013 (Given - Provider: Jo Youssef RN) atorvastatin (LIPITOR) tablet 10 mg 10 mg, Oral, EVERY OTHER NIGHT, First dose on Mon05/31/16 at 2100, Until Discontinued, Therapeutic interchange for simvastatin (Zocor) 10mg daily 2226 (Given - Provider: Marianne Tomlinson RN) carvedilol (COREG) tablet 25 mg 25 mg, Oral, 2 TIMES DAILY, First dose on Mon06/03/16 at 0900, Until Discontinued 1008 (Given - Provider: Bambi Mcintosh RN)2134 (Given - Provider: Merlyn Waller RN) 1000 (Given - Provider: Jo Youssef RN)2225 (Given - Provider: Marianne Tomlinson, TAMICA) 101 (Given - Provider: Jo Youssef RN) cephALEXin (KEFLEX) capsule 500 mg 500 mg, Oral, EVERY 12 HOURS SCHEDULED (2 times per day), 12 doses, First dose on Mon06/02/16 at 1000, Last dose on Mon06/07/16 at 2100 1008 (Given - Provider: Bambi Mcintosh RN)2132 (Given - Provider: Merlyn Waller RN) 999 (Given - Provider: Jo Youssef RN)2225 (Given - Provider: Marianne Tomlinson, TAMICA) 101 (Given - Provider: Jo Youssef RN) Donepezil (ARICEPT) Tab 23 mg 23 mg, Oral, NIGHTLY, First dose on Mon05/31/16 at 2100, Until Discontinued 2132 (Given - Provider: Merlyn Waller RN) 2225 (Given - Provider: Marianne Tomlinson RN) doxazosin (CARDURA) tablet 2 mg 2 mg, Oral, NIGHTLY, First dose on Mon05/31/16 at 2100, Until Discontinued, Therapeutic Interchange for Terazosin (HYTRIN) 2mg cap 2132 (Given - Provider: Merlyn Waller RN) 2225 (Given - Provider: Marianne Tomlinson RN) FLUoxetine (PROzac) capsule 40 mg 40 mg, Oral, 2 TIMES DAILY, First dose on Mon05/31/16 at 2100, Until Discontinued 1007 (Given - Provider: Bambi Mcintosh RN)2133 (Given - Provider: Merlyn Waller RN) 999 (Given - Provider: Jo Youssef RN)222 (Given - Provider: Marianne Tomlinson RN) 101 (Given - Provider: Jo Youssef RN) heparin, porcine (PF) 5,000 unit/0.5 mL injection 5,000 Units 5,000 Units, Subcutaneous, EVERY 8 HOURS SCHEDULED (3 times per day), First dose (after last modification) on Mon06/01/16 at 1400, Until Discontinued 604 (Given - Provider: Christy Bello RN)1400 (Not Given - Provider: Bambi Mcintosh RN - Reason: Contraindicated)213 (Given - Provider: Merlyn Waller RN) 0533 (Given - Provider: Merlyn Waller RN)1439 (Given - Provider: Jo Youssef RN)2226 (Given - Provider: Marianne Tomlinson RN) 0514 (Given - Provider: Marianne Tomlinson, TAMICA)1400 (Not Given - Provider: Jo Youssef RN - Reason: Other - Comment: pt being d/c) miconazole (MICATIN) 2 % powder Topical, EVERY 12 HOURS SCHEDULED (2 times per day), First dose on Mon05/31/16 at 2100, Until Discontinued, Application site: génesis under breasts 1018 (Given - Provider: Bambi Mcintosh RN)213 (Given - Provider: Merlyn Waller RN) 0900 (Given - Provider: Jo Youssef RN)2227 (Given - Provider: Marianne Tomlinson RN) 0900 (Given - Provider: Jo Youssef RN) pantoprazole (PROTONIX) injection 40 mg(Linked Group 1) 40 mg, Intravenous, DAILY, First dose on Mon05/31/16 at 1230, Until Discontinued, Dilute with 10 mL of 0.9% NaCl. Administer over 2 minutes. 1008 (See Alternative - Provider: Bambi Mcintosh RN) 1000 (See Alternative - Provider: Jo Youssef RN) 1013 (See Alternative - Provider: Jo Youssef RN) pantoprazole (PROTONIX) tablet 40 mg(Linked Group 1) 40 mg, Oral, DAILY, First dose on Mon05/31/16 at 1230, Until Discontinued, Do not crush or chew 1008 (Given - Provider: Bambi Mcintosh RN) 1000 (Given - Provider: Jo Youssef RN) 1013 (Given - Provider: Jo Youssef RN) QUEtiapine (SEROquel) tablet 25 mg 25 mg, Oral, 2 TIMES DAILY, First dose on Mon05/31/16 at 2100, Until Discontinued 1008 (Given - Provider: Bambi Mcitnosh RN)2133 (Given - Provider: Merlyn Waller RN) 1000 (Given - Provider: Jo Youssef, TAMICA)2226 (Given - Provider: Marianne Tomlinson, TAMICA) 1013 (Given - Provider: Jo Youssef RN) risperiDONE (RisperDAL) tablet 4 mg 4 mg, Oral, 2 TIMES DAILY, First dose on Mon05/31/16 at 2100, Until Discontinued 1008 (Given - Provider: Bambi Mcintosh RN)213 (Given - Provider: Merlyn Waller RN) 1003 (Given - Provider: Jo Youssfe RN)2226 (Given - Provider: Marianne Tomlinson, TAMICA) 1013 (Given - Provider: Jo Youssef RN) Saccharomyces boulardii (FLORASTOR) capsule 250 mg 250 mg, Oral, 2 TIMES DAILY, First dose on Mon06/02/16 at 1000, Until Discontinued 1008 (Given - Provider: Bambi Mcintosh RN)2132 (Given - Provider: Merlyn Waller RN) 1000 (Given - Provider: Jo Youssef RN)2226 (Given - Provider: Marianne Tomlinson, TAMICA) 1013 (Given - Provider: Jo Youssef RN) Continuous Medication Order 06/03/2016 06/04/2016 06/05/2016 dextrose 5 % and 0.45 % NaCl with KCl 20 mEq infusion (CANCELED) Intravenous, at 100 mL/hr, CONTINUOUS, Starting on Caryn 06/02/16 at 0715, Until 06/04/16 at 1146 0426 (New Bag - Provider: Hilda Diaz RN)0709 (Rate/Dose Verify - Provider: Bambi Mcintosh RN)1011 (Rate/Dose Change - Provider: Bambi Mcintosh RN)1122 (New Bag - Provider: Bambi Mcintosh RN)1622 (Rate/Dose Change - Provider: Bambi Mcintosh RN)1622 (Rate/Dose Verify - Provider: Merlyn Waller RN)1917 (Rate/Dose Verify - Provider: Merlyn Waller RN)2249 (New Bag - Provider: Merlyn Waller RN) 0715 (Rate/Dose Verify - Provider: Jo Youssef, TAMICA)1028 (New Bag - Provider: Jo Youssef RN)1147 (Stopped - Provider: Jo Youssef RN) PRN Medication Order 06/03/2016 06/04/2016 06/05/2016 acetaminophen (TYLENOL) tablet 650 mg 650 mg, Oral, EVERY 4 HOURS PRN, Starting on Mon05/31/16 at 1229, Until 06/05/16 at 1607, Pain, Fever, Maximum adult dose of acetaminophen is 4000 mg from all sources in 24 hours. miconazole (MICATIN) 2 % powder Topical, PRN, Starting on Mon05/31/16 at 1737, Until 06/05/16 at 1607, Wound Care, Application site: génesis, under breasts ondansetron (ZOFRAN) 4 mg/2 mL injection 4 mg 4 mg, Intravenous, EVERY 6 HOURS PRN, Starting on Mon05/31/16 at 1229, Until Mon06/05/16 at 1607, Nausea Linked Groups Order Group 1: pantoprazole (PROTONIX) injection 40 mgJump to med 40 mg, Intravenous, DAILY, First dose on Mon05/31/16 at 1230, Until Discontinued, Dilute with 10 mL of 0.9% NaCl. Administer over 2 minutes. Or pantoprazole (PROTONIX) tablet 40 mgJump to med 40 mg, Oral, DAILY, First dose on Mon05/31/16 at 1230, Until Discontinued, Do not crush or chew documented in this encounter Orders Medications Ordered That Cb ht Not Have Been Administered Count Last Ordered Date First Ordered Date 0.9 % NaCl infusion 1 06/01/2016 dextrose 5 % and 0.45 % NaCl with KCl 20 mEq infusion 1 06/01/2016 acetaminophen (TYLENOL) tablet 650 mg 1 enoxaparin (LOVENOX) injection 40 mg 1 05/12 miconazole (MICATIN) 2 % powder 1 7 ondansetron (ZOFRAN) 4 mg/2 mL injection 4 mg 1 05/31/2016 pantoprazole (PROTONIX) injection 40 mg 1 0 05/31/2016 Nursing Count Last Ordered Date First Orde red Date ADMISSION 2 05/31/2016 MEDICARE INPATIENT CERTIFICATION 1 05/31/19 17 Consult Count Last Ordered Date First Orde red Date IP CONSULT TO SOCIAL WORK 1 05/31/2016 PT Count Last Ordered Date First Orde red Date IP CONSULT TO PHYSICAL THERAPY 1 06/03/2016 Transfer Count Last Ordered Date First Orde red Date BED REQUEST 1 05/31/2016 documented in this encounter 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
--- OUTSIDE RECORDS SUMMARY | 2024-02-27 10:44 | XMS_ITS | Encounter Summary ---
Author Organization [place] [address] Care Team Providers Care Toolroom Keeper Name Role Phone Salo Segovia MD, Kevin Bradner Primary Care Provid er Reason for Visit * Reason Comments Fall Pt comes from [facility] for c/o lower back weakness s/p fall earlier today. CPTA: none Encounter Details Date Type Department Care Team (Late st Contact Info) Description 01/12/2017 8:24 PM EDT - 01/13/2017 12:11 AM EDT Emergency [place] [facility] Dr. Nguyen, [facility]17 Wander Caballero MD [address] [place] [address] [place] [address] Fall, initial encounter (Primary Dx) Discharge Disposition: Home or Self [...] Sign Reading Time Taken Comments Blood Pressure 168/62 01/12/2017 11:00 PM EDT Pulse 72 01/12/2017 11:00 PM EDT Temperature 37.1 ??C (98.8 ??F) 01/12/2017 8:29 PM ED T Respiratory Rate 14 01/12/2017 11:00 PM EDT Oxygen Saturation 95% 01/12/2017 11:00 PM EDT Inhaled Oxygen Concentration - - Weight 116.6 kg (257 lb) 01/12/2017 8:29 PM EDT Height - - Body Mass Index 34.86 05/31/2016 5:21 PM EST documented in this encounter Discharge Instructions * Discharge Instructions* Wander Caballero MD - 01/12/2017 11:43 PM EDT Alternate ibuprofen and tylenol up to every 4 hours as needed for pain or fever. Continue taking your home medications as prescribed. Use your walker when ambulating. Follow-up with primary doctor in 1 week. Return to the Emergency Department for any worsening or uncontrolled pain, weakness, difficulty or feeling unsteady walking, lightheadedness, or other urgent concerns. * Attachments The following attachments cannot be sent through Care Everywhere. * FALL PREVENTION IN THE HOME, [id number] (SPANISH) documented in this encounter Medications at Time [...] Code Departure Means Destination Home or Self Correction documented in this encounter ED Notes * Dm Francis RN - 01/12/2017 11:51 PM EDT Renata called at [facility] by RN. Renata states she will be waiting for patient's arrival. Patient to be assisted into cab. Patient alert and oriented. Cab voucher provided. * Dm Francis RN - 01/12/2017 11:47 PM EDT Patient states he would like to return home. Patient ambulating to wheel chair and getting out of wheel chair independently. MD in room and aware. Patient states he feels comfortable to go home. * Wander Caballero MD - 01/12/2017 8:23 PM EDT CHIEF COMPLAINT Chief Complaint Patient presents with ??? Fall Pt comes from [facility] for c/o lower back weakness s/p fall earlier today. CPTA: none HPI Renan Goncalves is a 71 y.o. male who presents from [facility] with complaints of lower back weakness s/p fall earlier today. Patient states he was getting off of the toilet after bowel movement when his lower back and legs began to feel weak and he fell backwards to the ground. He thinks he hithis head but he denies resulting headache or fatigue. Patient complains of continued lower back weakness but denies pain. He notes that it was not difficult to pass his bowels prior to episode. Patient also complains of mild SOB and bilateral lower extremity edema. He takes lasix for diuresis and has a history of CHF. Most recent Echocardiogram was done on 06/01/16 and showed EF 55-60% Denies neck pain, extremity pain, fevers/chills, nausea/vomiting/diarrhea, constipation, chest pain/pressure, abdominal pain, flank pain, dysuria, hematuria, urinary difficulty/urgency, black/bloody stools, recent trauma/injury or illness. REVIEW OF SYSTEMS See HPI for further [...] for this encounter. Current Outpatient Prescriptions: ??? amLODIPine (NORVASC) 2.5 mg Oral Tablet, Take 2.5 mg by mouth daily., Disp: , Rfl: ??? Aspirin 81 mg, Take 81 mg by mouth daily., Disp: , Rfl: ??? carvedilol (COREG) 25 mg Oral Tablet, Take 25 mg by mouth 2 times daily., Disp: , Rfl: ??? acetaminophen Oral tablet, Take 650 mg by mouth every 4 hours as needed for Pain (2 tabs for elevated temp/discomfort)., Disp: , Rfl: ??? Donepezil (ARICEPT) 23 [...] mg by mouth daily., Disp: , Rfl: ALLERGIES No Known Allergies PHYSICAL EXAM VITAL SIGNS: Vitals: 01/12/172028 BP: 160/65 Patient Position: Semi Fowlers Pulse: 64 Resp: 16 Temp: 98.8 ??F (37.1 ??C) TempSrc: Oral SpO2: 96% Weight: 257 lb (116.6 kg) Constitutional: Well developed, Well nourished, mild distress, Non-toxic appearance. HENT: Normocephalic, Atraumatic, Bilateral external ears normal, Oropharynx moist, No oral exudates, Nose normal. Eyes: PER, EOMI, Conjunctiva normal, No discharge. Neck: Normal range of motion, No midline tenderness, Supple, No stridor. Cardiovascular: Normal heart rate and rhythm, No murmurs, No rubs, No gallops. Normal pulses. Thorax & Lungs: Diminished breath sounds, No respiratory distress, No wheezing, Faint bibasilarcrakles, No Rhonchi, No chest tenderness. Abdomen: Bowel sounds normal, Soft, diffuse abdominal tenderness, no rebound tenderness, no guarding, No masses, No pulsatile masses. Skin: Warm, Dry, No erythema, No rash. Back: No tenderness, No CVA tenderness. No tenderness over bony prominences Extremities: No cyanosis, No clubbing. No deformities. No focal tenderness on musculoskeletal exam. Neurologic: Alert & oriented x 3, Normal motor function, Normal sensory function, No focal deficits noted. Chronic essential tremor EKG ECG at 2039 shows normal sinus rhythm rate 65. No ST elevation/depression or T- wave abnormalities. First degree AV block, occasional PVC's. RADIOLOGY/ LABS Results for orders placed or performed during the hospital encounter of 01/12/17 XR CHEST PA AND LATERAL Narrative XR CHEST PA AND LATERAL 01/12/2017 10:02 PM History: -FALL; Comparison: 05/31/2016 Lungs are clear and well expanded. Heart and mediastinum normal. No pneumothorax or rib fracture. Impression No active disease XR PELVIS Narrative XR PELVIS 01/12/2017 10:03 PM Clinical Indication: Injury and weakness Impression Findings and impression: Degenerative changes of both hips without acute fracture or dislocation. CBC WITH AUTO DIFF Result Value Ref Range WBC 3.8 (L) 4.0 - 11.0 x10(3)/mcL RBC 4.59 4.30 - 5.81 x10(6)/mcL Hgb 13.6 13.5 - 17.1 gm/dL Hct 40.7 38.9 - 51.6 % MCV 88.6 82.5 - 99.8 fL MCH 29.6 27.0 - 34.3 pg MCHC 33.4 32.1 - 35.3 gm/dL RDW 15.6 (H) 11.5 - 15.0 % Platelet 197 144 - 423 x10(3)/mcL MPV 7.5 6.8 - 10.8 fL NT PROBNP Result Value Ref Range NT Pro-BNP 480 (H) <=319 pg/mL COMPREHENSIVE METABOLIC PANEL Result Value Ref Range Sodium 140 136 - 145 mmol/L Potassium 3.3 (L) 3.5 - 5.0 mmol/L Chloride 98 98 - 107 mmol/L Total CO2 29 22 - 29 mmol/L Anion Gap 13 7 - 16 mmol/L Calcium 8.9 8.8 - 10.2 mg/dL Glucose Lvl 115 (H) 82 - 100 mg/dL BUN 11 8 - 23 mg/dL Creatinine 1.17 0.67 - 1.30 mg/dL Albumin 3.9 3.2 - 4.6 gm/dL Total Protein 7.8 6.4 - 8.3 gm/dL Bili Total 0.4 0.1 - 1.4 mg/dL AST 27 <=40 IU/L ALT 25 <=41 IU/L Alk Phos 80 40 - 129 IU/L GFR Afr Am >60 GFR Non Afr Am >60 LIPASE LEVEL Result Value Ref Range Lipase Lvl 54 13 - 60 IU/L TROPONIN-T Result Value Ref Range Troponin-T <0.01 <=0.00 ng/mL EK EKG 12 LEAD Narrative NOTICE: Preliminary tracing available for review; Final Interpretation by physician to follow. Impression Stationary ECG Study [facility] Interpretive Statements SINUS RHYTHM WITH FIRST DEGREE AV BLOCK WITH OCCASIONAL VENTRICULAR PREMATURE COMPLEXES PROLONGED QT INTERVAL PROCEDURES None COURSE & MEDICAL DECISION MAKING Pertinent Labs & Imaging studies reviewed. (See chart for details) Prior ED and clinical notes reviewed. ED Course: 1) Fall Modesta's pain was cotnrolled after PO Tylenol. Patient is now resting comfortably, tolerating PO and ambulating without difficulty with assistancec/w using a walker. His exam shows no signs of bony or joint injury and CXR and pelvis Xrays are unremarkable and show no acute fracture, PNA or pleural effusion. Cause of his fall is likely losing his balance upon standing. He has no focal neurological deficit or concern for stroke or cranial injury. His vitals are stable with mildly elevated BP but he has no evidence of end- organ damage, so he wasadvised to continue his home medications and follow up with his PMD. Findings and plan reviewed with pt who is agreeable to plan and verbalized understanding of discharge and follow up instructions. Condition on discharge was stable and improved. CRITICAL CARE TIME: N/A FINAL IMPRESSION 1. Fall, initial encounter This chart was completed using voice recognition technology and may contain unintended errors Tesha Mayberry Scribe, am scribing for and in the presence of Wander Islas MD. Tesha Bah Scribe 01/12/17 6413 IWander MD, personally performed the services described in this documentation, as Tesha arriola , in my presence and it is accurate and complete as edited/appended above. Wander Caballero MD 01/20/17 0506 documented in this encounter Plan of Treatment Not on file documented as of this encounter Procedures Procedure Name Priority Date/Time Associated Diagnosis Comments SCANNED EKG 01/17/2017 7:04 AM EDT URINALYSIS STAT 01/12/2017 10:20 PM EDT TROPONIN-T STAT 01/12/2017 10:10 PM EDT SMEAR REVIEW STAT 01/12/2017 10:10 PM EDT DIFFERENTIAL STAT 01/12/2017 10:10 PM EDT CBC WITH DIFF STAT 01/12/2017 10:10 PM EDT NT PROBNP STAT 01/12/2017 10:10 PM EDT LIPASE LEVEL STAT 01/12/2017 10:10 PM EDT COMPREHENSIVE METABOLIC PANEL STAT 01/12/2017 10:10 PM EDT XR PELVIS CHITO 01/12/2017 9:55 PM EDT XR CHEST PA AND LATERAL CHITO 01/12/2017 9:54 PM EDT documented in this encounter Results * SCANNED EKG (01/17/2017 7:04 AM EDT) Anatomical Region Laterality Modality Other 01/17/2017 7:04 AM EDT Unknown Unknown IMG ECG ORDERABLES Final Result * (ABNORMAL) URINALYSIS (01/12/2017 10:20 PM EDT) UA Color Yellow [facility] UA Appear Clear Clear [facility] UA Glucose Negative Negative [facility] UA Ketones Negative Negative [facility] UA Blood Small(A) Negative [facility] UA pH 6.0 4.8 - 8.0 [facility] Comment:Reference range ghazala d for random specimens only. UA Protein Negative Negative [facility] UA Urobilinogen Normal <=1 mg/dl [facility] UA Nitrite Negative Negative [facility] UA Leuk Est Negative Negative [facility] UA Spec Grav 1.009 1.001 - 1.035 [facility] Comment:Reference range ghazala d for random specimens only. UA WBC 2 0 - 4 /HPF [facility] UA RBC 3 0 - 3 /HPF [facility] UA Squam Epi 4+ [facility] Urine specimen (specimen) 01/12/2017 10:20 PM EDT 01/12/2017 10:23 PM EDT Wander Caballero MD URINE ORDERABLES Final Result [facility] [address] [place] [address] * SMEAR REVIEW (01/12/2017 10:10 PM EDT) Bands 2 0 - 10 % [facility] Atyp Lymph 1 0 - 5 % [facility] Aniso Slight [facility] Polychrom Slight [facility] Ovalocyte Occasional [facility] Blood specimen (specimen) 01/12/2017 10:10 PM EDT 01/12/2017 10:53 PM EDT Wander Caballero MD HEMATOLOGY ORDERABLES Final Res ult Performing Organization Address City/[facility]/[place] [address] * DIFFERENTIAL (01/12/2017 10:10 PM EDT) Pathologist [facility] Neut Percent 63.8 % [facility] ED [facility] Lymph Percent 22.9 % [facility] [place] Percent 10.7 % [facility] ED [facility] Eos Percent 2.3 % [facility] Baso Percent 0.3 % [facility] Neut# 2.4 1.8 - 7.7 x10(3)/mcL [facility] Lymph# 0.9 0.6 - 4.8 x10(3)/mcL [facility] [place]# 0.4 0.0 - 1.3 x10(3)/mcL [facility] Eos# 0.1 0.0 - 0.5 x10(3)/[facility] Baso# 0.0 0.0 - 0.2 x10(3)/[facility] Blood specimen (specimen) 01/12/2017 10:10 PM EDT 01/12/2017 10:12 PM EDT us Wander Caballero MD HEMATOLOGY ORDERABLES Final Res ult Performing Organization Address [facility] [place] [address] * TROPONIN-T (01/12/2017 10:10 PM EDT) [facility] Troponin-T <0.01 <=0.00 ng/mL [facility] Comment: Values > or = 0.01 ng/mL have been shown to have prognostic value. Blood specimen (specimen) 01/12/2017 10:10 PM EDT 01/12/2017 10:13 PM EDT us Wander Caballero MD CHEMISTRY ORDERABLES Final Resu lt Performing Organization Address City/[facility]/[place] [address] * LIPASE LEVEL (01/12/2017 10:10 PM EDT) Lipase Lvl 54 13 - 60 IU/L [facility] Blood specimen (specimen) UPPER LIMB STRUCTURE / Unknown 01/12/2017 10:10 PM EDT 01/12/2017 10:13 PM EDT us Wander Caballero MD CHEMISTRY ORDERABLES Final Resu lt [facility] [address] [place] [address] * (ABNORMAL) COMPREHENSIVE METABOLIC PANEL (01/12/2017 10:10 PM EDT) [facility] Sodium 140 136 - 145 mmol/L [facility] Potassium 3.3(L) 3.5 - 5.0 mmol/L [facility] Chloride 98 98 - 107 mmol/L [facility] Total CO2 29 22 - 29 mmol/L [facility] Anion Gap 13 7 - 16 mmol/L [facility] Calcium 8.9 8.8 - 10.2 mg/dL [facility] Glucose Lvl 115(H) 82 - 100 mg/dL [facility] BUN 11 8 - 23 mg/dL [facility] Creatinine 1.17 0.67 - 1.30 mg/dL [facility] Albumin 3.9 3.2 - 4.6 gm/dL [facility] Total Protein 7.8 6.4 - 8.3 gm/dL [facility] Bili Total 0.4 0.1 - 1.4 mg/dL [facility] AST 27 <=40 IU/L [facility] ALT 25 <=41 IU/L [facility] Alk Phos 80 40 - 129 IU/L [facility] GFR Afr Am >60 [facility] GFR Non Afr Am >60 [facility] Blood specimen (specimen) UPPER LIMB STRUCTURE / Unknown 01/12/2017 10:10 PM EDT 01/12/2017 10:13 PM EDT us Wander Caballero MD CHEMISTRY ORDERABLES Edited Res ult - Final Performing Organization Address City/[facility]/[place] [address] * (ABNORMAL) NT PROBNP (01/12/2017 10:10 PM EDT) NT Pro-BNP 480(H) <=319 pg/mL [facility] Comment: An NT pro-BNP level less than 300 pg/mL in any patient, regardless of age, Effectively rules out acute CHF with a 99% negative predictive value. Blood specimen (specimen) UPPER LIMB STRUCTURE / Unknown 01/12/2017 10:10 PM EDT 01/12/2017 10:13 PM EDT us Wander Caballero MD CHEMISTRY ORDERABLES Final Resu lt Performing Organization Address [facility] [place] [address] * (ABNORMAL) CBC WITH AUTO DIFF (01/12/2017 10:10 PM EDT) WBC 3.8(L) 4.0 - 11.0 x10(3)/mcL [facility] RBC 4.59 4.30 - 5.81 x10(6)/mcL [facility] Hgb 13.6 13.5 - 17.1 gm/dL [facility] Hct 40.7 38.9 - 51.6 % [facility] MCV 88.6 82.5 - 99.8 fL [facility] MCH 29.6 27.0 - 34.3 pg [facility] MCHC 33.4 32.1 - 35.3 gm/dL [facility] RDW 15.6(H) 11.5 - 15.0 % [facility] Platelet 197 144 - 423 x10(3)/mcL [facility] MPV 7.5 6.8 - 10.8 fL [facility] Blood specimen (specimen) UPPER LIMB STRUCTURE / Unknown 01/12/2017 10:10 PM EDT 01/12/2017 10:53 PM EDT Wander Caballero MD HEMATOLOGY ORDERABLES Edited Re sult - Final [address] [address] * XR PELVIS (01/12/2017 9:55 PM EDT) Anatomical Region Laterality Modality Pelvis Radiographic Kelsey ging 01/12/2017 9:55 PM EDT Impressions 01/12/2017 10:03 PM EDT Findings and impression: Degenerative changes of both hips without acute fracture or dislocation. Narrative 01/12/2017 10:03 PM EDT XR PELVIS 01/12/2017 10:03 PM Clinical Indication: Injury and weakness Procedure Note Darrius Peterson MD - 01/12/2017 XR PELVIS 01/12/2017 10:03 PM Clinical Indication: Injury and weakness IMPRESSION: Findings and impression: Degenerative changes of both hips without acute fracture or dislocation. Wander Caballero MD G DIAGNOSTIC IMAGING ORDERABL ES Final Result * XR CHEST PA AND LATERAL (01/12/2017 9:54 PM EDT) Anatomical Region Laterality Modality Chest Radiographic Kelsey ging 01/12/2017 9:54 PM EDT Impressions 01/12/2017 10:02 PM EDT No active disease Narrative 01/12/2017 10:02 PM EDT XR CHEST PA AND LATERAL ??01/12/2017 10:02 PM History: -FALL; ? Comparison: 05/31/2016 Lungs are clear and well expanded. Heart and mediastinum normal. No pneumothorax or rib fracture. ?? Procedure Note Darrius Peterson MD - 01/12/2017 XR CHEST PA AND LATERAL 01/12/2017 10:02 PM History: -FALL; Comparison: 05/31/2016 Lungs are clear and well expanded. Heart and mediastinum normal. Nopneumothorax or rib fracture. IMPRESSION: No active disease Wander Caballero MD IMG DIAGNOSTIC IMAGING ORDERABL ES Final Result documented in this encounter Visit Diagnoses Diagnosis Fall, initial encounter- Primary documented in this encounter Administered Medications Inactive Administered Medications - up to 1 most recent administrations Medication Order MAR Action Action Date Dose Rate Site acetaminophen (TYLENOL) tablet 1,000 mg 1,000 mg, Oral, ONCE, 1 dose, On Caryn 01/12/17 at 2145, Maximum adult dose of acetaminophen is 4000 mg from all sources in 24 hours. Given 01/12/2017 10:11 PM EDT 1,000 mg documented in this encounter Active and Recently Administered Medications Times are shown in EDT. Scheduled Medication Order 01/11/2017 01/12/2017 01/13/2017 acetaminophen (TYLENOL) tablet 1,000 mg (COMPLETED) 1,000 mg, Oral, ONCE, 1 dose, On Caryn 01/12/17 at 2145, Maximum adult dose of acetaminophen is 4000 mg from all sources in 24 hours. 2211 (Given - Provider: Dm Francis RN) documented in this encounter Orders Medications Ordered That Cb ht Not Have Been Administered Count Last Ordered Date First Ordered Date morphine injection 4 mg 1 01/12/2017 nitroGLYCERIN (NITROGLYN) 2 % ointment 1 Inch 1 01/12/2017 ondansetron (ZOFRAN) injection 4 mg 1 01/12 Imaging Orders Without Results Count Last Order ed Date First Ordered Date EK EKG 12 LEAD 1 01/12/2017 documented in this encounter Care Teams Toolroom Keeper Relationship Specialty Start Date End Date Kevin Leong Sr., MD [address] [place] [phone] PCP - General Bundle Wrapper 10/29/13 documented as of this encounter
--- OUTSIDE RECORDS SUMMARY | 2024-02-27 10:44 | XMS_ITS | Encounter Summary ---
Author Organization [facility] Address [facility] [place] [address] Care Team Providers Care Tool Engine Lathe Set Up Operator Name Role Phone Salo Segovia MD, Kevin Haughton Primary Care Provid er Encounter Details Date Type Department Care Team (Latest Contact Info) Description 06/10/2016 10:05 PM EST - 06/10/2016 11:59 PM EST Hospital Encounter EDG LAB KIKE PROCESSING [facility] [place] [id number] Routine general [...] Associated Diagnosis Comments BASIC METABOLIC PANEL Routine 06/11/2016 6:28 AM EST Routine general medical examination at a health care facility documented in this encounter Results * (ABNORMAL) BASIC METABOLIC PANEL (06/11/2016 6:28 AM EST) Sodium 142 136 - 145 mmol/L [facility] Potassium 4.0 3.5 - 5.0 mmol/L [facility] Chloride 102 98 - 107 mmol/L [facility] Total CO2 28 22 - 29 mmol/L [facility] Anion Gap 12 7 - 16 mmol/L [facility] Calcium 8.6(L) 8.8 - 10.2 mg/dL [facility] Glucose Lvl 107(H) 82 - 100 mg/dL [facility] BUN 12 8 - 23 mg/dL [facility] Creatinine 1.41(H) 0.67 - 1.30 mg/dL [facility] GFR Afr Am >60 [facility] GFR Non Afr Am [address] [facility] [address] [facility] Blood specimen (specimen) UPPER LIMB STRUCTURE / Unknown 06/11/2016 6:28 AM EST 06/11/2016 7:27 AM EST [facility] CHEMISTRY ORDERABLES Edited Res ult - Final [facility] [address] [place] [address] documented in this encounter Visit Diagnoses Diagnosis Routine general medical examination at a health care facility- Primary documented in this encounter Care Teams Tool Engine Lathe Set Up Operator Relationship Specialty Start Date End Date Kevin Leong Sr., MD [address] [place] [phone] PCP - General Manager Distribution 10/29/13 documented as of this encounter
--- OUTSIDE RECORDS SUMMARY | 2024-02-27 10:44 | XMS_ITS | Encounter Summary ---
Author Organization [place] [address] Care Team Providers Care Tile Inspector Name Role Phone Salo Segovia MD, Kevin Hollingsworth Primary Care Provid er Reason for Visit * Reason Comments Hospital Follow Up chf 02/08/14 bp issue s * Consultation (Routine) - Closed Specialty Diagnoses / Procedures Referred By Contac t Referred To Contact Nurse Practitioner / Cardiology Diagnoses CHF f/u (from February 2014) Pt is also having BP issues. Please see TE from 04/13/15 Procedures HOSPITAL PATIENT VISIT Kevin Leong Sr., MD [address] [place] [phone] Phone: tel: fax: Davi Tate, JULIEN [address] [place] [address] Phone: tel: fax: Referral ID Status Reason Start Date Expiration Date Visits Re quested Visits Authorized [id number] Closed 04/23/2015 04/22/2016 1 1 Encounter Details Date Type Department Care Team (Latest Contact Info) Description 04/23/2015 1:30 PM EST Office Visit [facility]P [facility] [address] [place] [address] Davi Tate, JULIEN [address] [place] [address] Essential hypertension (Primary Dx); Combined systolic and diastolic congestive heart failure, NYHA class 4 (HCC); Paranoid schizophrenia (HCC); Morbid obesity due to excess calories (HCC) Social History Tobacco Use Types Packs/Day Years Used Date Smoking Tobacco: Never Alcohol Use Standard Drinks/Week Comments [...] Sign Reading Time Taken Comments Blood Pressure 168/80 04/23/2015 1:39 PM EST Pulse 72 04/23/2015 1:39 PM EST Temperature - - Respiratory Rate - - Oxygen Saturation - - Inhaled Oxygen Concentration - - Weight 126.6 kg (279 lb) 04/23/2015 1:39 PM EST Height 180.3 cm (5' 11 ) 04/23/2015 1:39 PM EST Body Mass Index 38.91 04/23/2015 1:39 PM EST documented in this encounter Ordered Prescriptions Prescription Sig Dispense Quantity Refills Last Filled Start Date End Date spironolactone (ALDACTONE) 25 mg Oral Tablet Take 0.5 Tabs by mouth daily. 15 Tab 3 04/23/2015 07/12/2017 documented in this encounter Progress Notes * Davi Tate, BUSINESS OBJECTS REPORT DEVELOPER - 04/23/2015 1:49 PM EST Cardiology Note Chief Complaint Patient presents with ??? Hospital Follow Up chf 02/08/14 bp issues HPI: Renan Goncalves returned to the office for hospital follow up for CHF. He was diuresed about 21 L of fluid during stay. He resides at [facility] and has been having trouble with elevated BP. He was recently started on Norvasc and Angela (nurse from [place]) states BP has improved but is still high. He has multiple complaints today. States this morning when he woke up he felt chest pain over his left breast that lasted about 30 minutes. There was no radiation or associated symptoms. He has had a couple of these episodes in the past - all occuring at rest. He also will occasionally feel palpitations. He noticed his legs swelling a couple days ago at the long term but denies SOB and orthopnea. He appears to be up 9 lbs since discharge in February 2015 but the [place] has not reliably been taking his weight and cannot give me numbers. He also complains of orthostatic dizziness. Pt affect is very flat and he has some confused conversation today. Review of Systems HENT: Negative for headaches. Cardiovascular: Negative for dyspnea on exertion, near-syncope, orthopnea, paroxysmal nocturnal dyspnea and syncope. Respiratory: Negative for shortness of breath, cough Gastrointestinal: Negative for hematochezia. Neurological: Negative for light-headedness. Complains of: chest pain, palpitations, dizziness, leg swelling, weight gain No Known Allergies Current Outpatient Rx Name Route Sig Dispense Refill ??? acetaminophen Oral tablet Oral Take 650 mg by mouth every 4 hours as needed for Pain (2 tabs for elevated temp/discomfort). ??? amLODIPine (NORVASC) 2.5 mg Oral Tablet Oral Take 2.5 mg by mouth daily. ??? Aspirin 81 mg Oral Take 81 mg by mouth daily. ??? carvedilol (COREG) 25 mg Oral Tablet Oral Take 25 mg by mouth 2 times daily. ??? FLUoxetine (PROZAC) 40 mg capsule Oral Take 40 mg by mouth 2 times daily. ??? fUROsemide (LASIX) 40 mg Oral Tablet Oral Take 40 mg by mouth every 12 hours. ??? guaiFENesin-dextromethorphan (ROBITUSSIN DM) 10-100 mg/5 mL syrup Oral Take 10 mL by mouth every 4 hours as needed for Cough. ??? haloperidol (HALDOL) 5 mg tablet Oral Take 5 mg by mouth every 4 hours as needed for Agitation (every 4 hours as needed for agitation). ??? potassium chloride (MICRO-K) 10 mEq CR capsule Oral Take 20 mEq by mouth 2 times daily. ??? risperiDONE (RISPERDAL) 4 mg tablet Oral Take 4 mg by mouth 2 times daily. ??? simvastatin (ZOCOR) 10 mg Oral Take 10 mg by mouth nightly. ??? terazosin (HYTRIN) 2 mg capsule Oral Take 2 mg by mouth nightly. ??? valsartan (DIOVAN) 320 mg tablet Oral Take 320 mg by mouth daily. Past Medical History Diagnosis Date ??? Hypertension ??? Paranoid schizophrenia (HCC) ??? High cholesterol ??? CHF (congestive heart failure) (HCC) ??? Pneumonia Past Surgical History Procedure Laterality Date ??? Hand surgery Lab Results Component Value Date HGB 11.3* 02/27/2015 HCT 35.0* 02/27/2015 PLT 183 02/27/2015 ALT 14 02/27/2015 AST 19 02/27/2015 NA 141 03/07/2015 K 4.6 03/07/2015 CREATININE 1.11 03/07/2015 BUN 31* 03/07/2015 CO2 27 03/07/2015 TSH 1.900 03/06/2015 GLU 106* 03/07/2015 History Smoking status ??? Never Smoker Smokeless tobacco ??? Not on file History Alcohol Use No Vitals: Filed Vitals: 04/23/15 1339 BP: 168/80 Pulse: 72 Height: 5' 11 (1.803 m) Weight: 279 lb (126.554 kg) Body mass index is 38.93 kg/(m^2). Wt Readings from Last 3 Encounters: 04/23/15 279 lb (126.554 kg) 03/07/15 271 lb 6 oz (123.095 kg) 02/27/15 314 lb (142.429 kg) Physical Exam: GEN: Alert and oriented, no acute distress HEENT: Normocephalic, Sclera anicteric NECK: supple, decreased JVP LUNGS: CTA CHEST: NT HEART: RRR, no murmur/gallop/rubs ABD: soft, NT, positive bowel sounds EXT: +1 BLE pitting pretibial edema, +3 radial, +3 PT pulses Echo 02/2015: EF 60-65%, limited study, stage 2 diastolic dysfunction Assessment and Plan: Renan was seen today for hospital follow up. Diagnoses and all orders for this visit: Chronic Cor Pulmonale Acute on Chronic Diastolic HF -LVEF 60-65% per echo 02/2015 -appears mildly decompensated today Hypertension -elevated Chest pain -atypical features -recent echo with normal EF and no WMAs Obesity Paranoid schizophrenia (HCC) Morbid obesity DW Dr. Yeh - will keep patient on 2.5 mg norvasc and start spironolactone 12.5 mg daily. Also increase lasix to 80 mg in the AM and 40 mg in the PM for the next 3 days, then back to 40 mg twice daily. BMP in 7-10 days. Monitor daily weights and call for gain of 3-4 pounds per day. 2 L fluid restriction. Spot check BP/HR and call for problems. Instructed the patient to follow a low sodium (<2gm) diet and low fat. Also instructed to cont/increase regular exercise. Return in about 4 weeks (around 05/21/2015). Call us with any questions or concerns prior to your next visit. Cuca Tate APRN 04/23/2015 documented in this encounter Miscellaneous Notes * Addendum Note - Davi Tate APRN - 04/23/2015 4:52 PM ESTAddended by: DAVI TATE on: 04/23/2015 04:52 PM Modules accepted: Orders * Patient Instructions - Davi Tate APRN - 04/23/2015 2:15 PM EST Increase lasix to 80 mg in the AM and 40 mg in the PM for the next 3 days, then back to 40 mg twicedaily BMP in 7-10 days documented in this encounter Plan of Treatment Scheduled Orders Name Type Priority Associated Diagnoses Orde r Schedule BASIC METABOLIC PANEL Lab Routine Essential hypertension 1 Occurrences starting 04/23/2015 until 04/22/2016 documented as of this encounter Visit Diagnoses Diagnosis Essential hypertension- Primary Unspecified essential hypertension Combined systolic and diastolic congestive heart failure, NYHA class 4 (HCC) Paranoid schizophrenia (HCC) Paranoid schizophrenia, unspecified condition Morbid obesity due to excess calories (HCC) documented in this encounter Discontinued Medications Medication Sig Discontinue Reason Start Date End Da te amLODIPine (NORVASC) 2.5 mg Oral TabletIndications:Essentia l hypertension Take 1 Tab by mouth daily. Alternate therapy 04/06/2015 04/23/2015 documented as of this encounter Historical Medications * This list may reflect changes made after this encounter. carvedilol (COREG) 25 mg Oral Tablet Take 25 mg by mouth 2 times daily. amLODIPine (NORVASC) 2.5 mg Oral Tablet Take 2.5 mg by mouth daily. 07/19/2017 fUROsemide (LASIX) 40 mg Oral Tablet Take 40 mg by mouth every 12 hours. 06/05/2016 added in this encounter Care Teams Tile Inspector Relationship Specialty Start Date End Date Kevin Leong Sr., MD [address] [place] [phone] PCP - General [employer] Person 10/29/13 documented as of this encounter
--- OUTSIDE RECORDS SUMMARY | 2024-02-27 10:44 | XMS_ITS | Encounter Summary ---
Author Organization [place] [address] Care Team Providers Care Health And Fitness Instructor Name Role Phone Salo Segovia MD, Kevin Shiner Primary Care Provid er Reason for Visit * Reason Onset Date Comments Visit Follow Up 05/19/2015 Encounter Details Date Type Department Care Team (Late st Contact Info) Description 05/19/2015 Telephone SEP H&[facility] [address] [place] [address] Herlinda Rae, JULIEN [address] [place] [address] Visit Follow Up Social History Tobacco Use Types Packs/Day Years [...] encounter Miscellaneous Notes * Telephone Encounter - Stacy Lainez RMA - 05/19/2015 12:34 PM EST Were you greeted at the help desk team leader when you arrived? Comment: Was the help desk team leader friendly? Comment: Was the diploma medical assistant friendly, were all of your questions answered? Comment: Is there anything we can do to improve our service to you? Comment: Misc Comment: Patient unavailable documented in this encounter Plan of Treatment Not on file documented as of this encounter Visit Diagnoses Not on filedocumented in this encounter Care Teams Health And Fitness Instructor Relationship Specialty Start Date End Date Kevin Leong Sr., MD [address] [place] [phone] PCP - General Caseworker 10/29/13 documented as of this encounter
--- OUTSIDE RECORDS SUMMARY | 2024-02-27 10:45 | XMS_ITS | Encounter Summary ---
Author Organization [place] [address] Care Team Providers Care County Administrator Name Role Phone Unavailable Primary Care Provider Unavailabl e Reason for Visit * Reason Comments Fall Lst from [facility] with complaints of falling and hitting head and bilateral hands on dresser. Nurse states that he has been falling more in the morning. cpta none Encounter Details Date Type Department Care Team (Late st Contact Info) Description 06/20/2013 5:52 AM EDT - 06/20/2013 11:04 AM EDT Emergency [place] [facility] [place] [address] Shalom Centeno MD [address] [place] [address] [place] [address] Fall [facility] (Primary Dx); Hand abrasion Discharge Disposition: Nursing Facility Social History Tobacco Use Types Packs/Day [...] Sign Reading Time Taken Comments Blood Pressure 165/77 06/20/2013 6:42 AM EDT Pulse 88 06/20/2013 6:42 AM EDT Temperature 36.7 ??C (98.1 ??F) 06/20/2013 5:57 AM ED T Respiratory Rate 20 06/20/2013 6:42 AM EDT Oxygen Saturation 100% 06/20/2013 6:42 AM EDT Inhaled Oxygen Concentration - - Weight - - Height - - Body Mass Index - - documented in this encounter Discharge Instructions * Discharge Instructions* Shalom Centeno MD - 06/20/2013 6:57 AM EDT Images from the original note were not included. Abrasions An abrasion is a cut or scrape of the skin. Abrasions do not go through all layers of the skin. HOME CARE ?? If a bandage (dressing) was put on your wound, change it as told by your doctor. If the bandage sticks, soak it off with warm. ?? Wash the area with water and soap 2 times a day. Rinse off the soap in a sink or under a bath orshower faucet. Pat the area dry with a clean towel. ?? Put on medicated cream (ointment) as told by your doctor. ?? Change your bandage right away if it gets wet or dirty. ?? Only take medicine as told by your doctor. ?? See your doctor within 24 to 48 hours to get your wound checked. ?? Check your wound for redness, puffiness (swelling), or yellowish-white fluid (pus). GET HELP RIGHT AWAY IF: ?? You have more pain in the wound. ?? You have redness, swelling, or tenderness around the wound. ?? You have pus coming from the wound. ?? You have a fever. ?? You have a bad smell coming from the wound or bandage. MAKE SURE YOU: ?? Understand these instructions. ?? Will watch your condition. ?? Will get help right away if you are not doing well or get worse. Document Released: 09/12/2008 Document Revised: 06/18/2012 Document Reviewed: 02/28/2012 ExitCare?? Patient Information ??2013 [employer]. documented in this encounter Medications at Time of Discharge acetaminophen Oral tablet Take 650 mg by mouth every 4 hours as needed for Pain (2 tabs for elevated temp/discomfort ). Aspirin 81 mg Take 81 mg by mouth daily. FLUoxetine (PROZAC) 40 mg capsule Take 40 mg by mouth 2 times daily. amLODIPine (NORVASC) 10 mg tablet Take 10 mg by mouth daily. 5 atenolol (TENORMIN) 50 mg tablet Take 50 mg by mouth daily. 5 fUROsemide (LASIX) 40 mg tablet Take 40 mg by mouth daily. 5 guaiFENesin-dext romethorphan (ROBITUSSIN DM) 10-100 mg/5 mL syrup Take 10 mL by mouth every 4 hours as needed for Cough. 8 haloperidol (HALDOL) 5 mg tablet Take 5 mg by mouth every 4 hours as needed for Agitation (every 4 hours as needed for agitation). 8 potassium chloride (MICRO-K) 10 mEq CR capsule Take 20 mEq by mouth 2 times daily. 7 risperiDONE (RISPERDAL) 4 mg tablet Take 4 mg by mouth 2 times daily. 8 simvastatin (ZOCOR) 10 mg Take 10 mg by mouth nightly. 8 terazosin (HYTRIN) 2 mg capsule Take 2 mg by mouth nightly. 8 valsartan (DIOVAN) 320 mg tablet Take 320 mg by mouth daily. 8 documented as of this encounter Discharge Disposition Disposition Code Departure Means Destination Nursing Facility [facility] or documented in this encounter ED Notes * Unknown, Unknown - 06/21/2013 9:50 PM EDT * Nurys May RN - 06/20/2013 11:04 AM EDT PT TAKEN TO [place] PER [facility]. REPORT CALLED TO TAMICA BECK @ [facility]. * Nurys May RN - 06/20/2013 10:39 AM EDT Pt resting in bed eating crackers and juice. Will continue to monitor * Nurys May RN - 06/20/2013 8:19 AM EDT Call placed to [facility] for pt picker box operator * Nurys May RN - 06/20/2013 7:53 AM EDT Wound on pt hand cleaned, pso applied and dry dressing applied. Pt tolerated well. * Camelia Romero RN - 06/20/2013 7:11 AM EDT Report to Nurys Chilel RN * Shalom Centeno MD - 06/20/2013 6:01 AM EDT Chief Complaint Patient presents with ??? Fall Lst from [facility] with complaints of falling and hitting head and bilateral hands on dresser. Nurse states that he has been falling more in the morning. cpta none HPI Comments: Chief complaint: Fall at [facility] 68-year-old gentleman sent from [facility] for evaluation of multiple falls at the [facility].The patient fell this morning and struck his head on the edge of the dresser and also scraped the top of his hands. He denies any headache pain denies any neck pain denies any back pain. Denies any chest pain or abdominal pain. Denies any recent vomiting or diarrhea. detention reported that he has been falling frequently over the past couple of weeks. The history is provided by the patient, the [place] and the EMS personnel. No Known Allergies Home Medications: Prior to Admission medications Not on File Past Medical History: Past Medical History Diagnosis Date ??? Hypertension ??? Paranoid schizophrenia ??? High cholesterol Social History: reports that he does not drink alcohol or use illicit drugs. Family History: No family history on file. Surgical History: History reviewed. No pertinent past surgical history. Review of Systems Constitutional: Positive for fatigue. Negative for fever and chills. HENT: Negative. Negative for neck pain. Eyes: Negative. Respiratory: Negative for cough and shortness of breath. Cardiovascular: Negative for chest pain. Gastrointestinal: Negative for nausea, vomiting, abdominal pain and diarrhea. Genitourinary: Negative for dysuria and frequency. Musculoskeletal: Negative. Negative for back pain. Skin: Negative for rash. Neurological: Negative. Negative for weakness, numbness and headaches. Psychiatric/Behavioral: Negative. All other systems reviewed and are negative. Blood pressure 111/75, pulse 86, temperature 98.1 ??F (36.7 ??C), temperature source Oral, resp. rate 20, SpO2 98.00%. Physical Exam Nursing note and vitals reviewed. Constitutional: He is oriented to person, place, and time. He appears well- developed and well-nourished. No distress. HENT: Head: Normocephalic and atraumatic. Mouth/Throat: Oropharynx is clear and moist. Eyes: Conjunctivae and EOM are normal. Pupils are equal, round, and reactive to light. Neck: Normal range of motion. Neck supple. No thyromegaly present. Cardiovascular: Normal rate, regular rhythm and intact distal pulses. Exam reveals no gallop and nofriction rub. No murmur heard. Pulmonary/Chest: Effort normal and breath sounds normal. No respiratory distress. Abdominal: Soft. Bowel sounds are normal. He exhibits no distension. There is no tenderness. Musculoskeletal: He exhibits no edema and no tenderness. Lymphadenopathy: He has no cervical adenopathy. Neurological: He is alert and oriented to person, place, and time. He exhibits normal muscle tone. Skin: Skin is warm and dry. No rash noted. Psychiatric: He has a normal mood and affect. Procedures Radiology/EKG/Labs: EKG reveals sinus rhythm, rate of 82, normal axis, normal intervals, normal, QTC occasional PVC is noted. No acute ischemia or infarct pattern is evident. Comparison EKG dated August 06, 2008. CT head normal Labs Reviewed BASIC METABOLIC PANEL - Abnormal; Notable for the following: Calcium 8.4 (*) Creatinine 1.31 (*) All other components within normal limits CBC WITH AUTO DIFF DIFFERENTIAL URINALYSIS ED Course: Appropriate laboratory and radiology studies reviewed Patient's wounds are cleansed and dressed. He is returned to [facility] ED Clinical Impression: 1. Fall at [facility] 2. Hand abrasion Critical Care time Condition at Discharge/Transfer from Department: Stable This chart was completed using voice recognition technology and may contain unintended errors Shalom Centeno MD 06/20/13 0658 documented in this encounter Plan of Treatment Not on file documented as of this encounter Procedures Procedure Name Priority Date/Time Associated Diagnosis Comments CT HEAD WO CONTRAST STAT 06/20/2013 6 :34 AM EDT DIFFERENTIAL STAT 06/20/2013 6:25 AM EDT CBC WITH DIFF STAT 06/20/2013 6:25 AM EDT BASIC METABOLIC PANEL STAT 06/20/2013 6:25 AM EDT EK EKG 12 LEAD STAT 06/20/2013 6:07 AM EDT documented in this encounter Results * CT HEAD WO CONTRAST (06/20/2013 6:34 AM EDT) Anatomical Region Laterality Modality Head Computed Tomogra phy 06/20/2013 6:00 AM EDT Impressions 06/20/2013 6:42 AM EDT IMPRESSION: 1. No acute intracranial process or fracture. 2. Changes of chronic small vessel ischemic disease. Narrative 06/20/2013 6:42 AM EDT CLINICAL HISTORY: Fall. COMPARISON: None. TECHNIQUE: CT HEAD WO CONTRAST on Jun 20, 2013 06:34:23 AM. FINDINGS: The ventricles, sulci, and basal cisterns are normal in size and configuration for the patient's age. There is no CT evidence of an acute infarction, hemorrhage, mass effect or midline shift, or extra axial fluid collection. There is diffuse low-attenuation in the periventricular white matter. Vascular calcifications are noted. The visualized osseous structures, orbits, sinuses, and mastoids are unremarkable. Procedure Note John Johnson MD - 06/20/2013 CLINICAL HISTORY: Fall. COMPARISON: None. TECHNIQUE: CT HEAD WO CONTRAST on Jun 20, 2013 06:34:23 AM. FINDINGS: The ventricles, sulci, and basal cisterns are normal in size andconfiguration for the patient's age. There is no CT evidence of an acute infarction,hemorrhage, mass effect or midline shift, or extra axial fluid collection. There is diffuselow-attenuation in the periventricular white matter. Vascular calcifications are noted. Thevisualized osseous structures, orbits, sinuses, and mastoids are unremarkable. IMPRESSION: 1. No acute intracranial process or fracture. 2. Changes of chronic small vessel ischemic disease. Shalom Centeno MD IMG CT ORDERABLES Final Res ult * DIFFERENTIAL (06/20/2013 6:25 AM EDT) Neut Percent 72.6 % [facility] Lymph Percent 14.0 % [facility] [place] Percent 9.1 % [facility] Eos Percent 3.9 % [facility] Baso Percent 0.4 % [facility] Neut# 3.8 1.8 - 7.7 x10(3)/mcL [facility] Lymph# 0.7 0.6 - 4.8 x10(3)/mcL [facility] Knox# 0.5 0.0 - 1.3 x10(3)/mcL [facility] Eos# 0.2 0.0 - 0.5 x10(3)/mcL [facility] Baso# 0.0 0.0 - 0.2 x10(3)/[facility] Blood specimen (specimen) 06/20/2013 6:25 AM EDT 06/20/2013 6:31 AM EDT Shalom Centeno MD HEMATOLOGY ORDERABLES Final Result [facility] [address] [place] [address] * (ABNORMAL) BASIC METABOLIC PANEL (06/20/2013 6:25 AM EDT) Sodium 139 136 - 145 mmol/L Potassium 3.7 3.5 - 5.0 mmol/L Chloride 105 98 - 107 mmol/L Total CO2 25 22 - 29 mmol/L Anion Gap 9 7 - 16 mmol/L Calcium 8.4(L) 8.8 - 10.2 mg/dL Glucose Lvl 106 82 - 115 mg/dL BUN 19 8 - 23 mg/dL Creatinine 1.31(H) 0.67 - 1.30 mg/dL GFR Afr Am >60 Comment: GFR is estimated using creatinine, age, gender, and race. ??GFR has been validated for patients between 18 and 70 years of age. GFR has not been validated for women, patients with serious comorbid conditions, or persons with extremes of body size, muscle mass, or nutritional status. ??For additional information: ??www.kidney.org. Chronic kidney disease stage ? GFR (ml/min/1.73 square meters) ? Stage 3 ? 30 - 59 ? Stage 4 ? 15 - 29 ? Stage 5 ? 14 or less GFR Non Afr Am 55 Blood specimen (specimen) UPPER LIMB STRUCTURE / Unknown 06/20/2013 6:25 AM EDT 06/20/2013 6:31 AM EDT us Shalom Centeno MD CHEMISTRY ORDERABLES Edited Result - Final * CBC WITH AUTO DIFF (06/20/2013 6:25 AM EDT) Pathologist [facility] WBC 5.2 4.0 - 11.0 x10(3)/mcL RBC 4.56 4.30 - 5.81 x10(6)/mcL Hgb 13.8 13.5 - 17.1 gm/dL Hct 41.1 38.9 - 51.6 % MCV 90.1 82.5 - 99.8 fL MCH 30.3 27.0 - 34.3 pg MCHC 33.6 32.1 - 35.3 gm/dL RDW 13.8 11.5 - 15.0 % Platelet 173 144 - 423 x10(3)/mcL MPV 7.8 6.8 - 10.8 fL Blood specimen (specimen) UPPER LIMB STRUCTURE / Unknown 06/20/2013 6:25 AM EDT 06/20/2013 6:31 AM EDT us Shalom Centeno MD HEMATOLOGY ORDERABLES Final Result * EK EKG 12 LEAD (06/20/2013 6:07 AM EDT) Anatomical Region Laterality Modality Other 06/20/2013 6:07 AM EDT us Shalom Centeno MD IMG ECG ORDERABLES Final Re sult documented in this encounter Visit Diagnoses Diagnosis Fall at [facility]- Primary Unspecified fall Hand abrasion Hand(s) except finger(s) alone, abrasion or friction burn, without mention of infection Hand(s) except finger(s) alone, abrasion or friction burn, without mention of infection documented in this encounter Historical Medications * This list may reflect changes made after this encounter. FLUoxetine (PROZAC) 40 mg capsule Take 40 mg by mouth 2 times daily. Aspirin 81 mg Take 81 mg by mouth daily. acetaminophen Oral tablet Take 650 mg by mouth every 4 hours as needed for Pain (2 tabs for elevated temp/discomfort ). terazosin (HYTRIN) 2 mg capsule Take 2 mg by mouth nightly. 8 simvastatin (ZOCOR) 10 mg Take 10 mg by mouth nightly. 8 risperiDONE (RISPERDAL) 4 mg tablet Take 4 mg by mouth 2 times daily. 8 potassium chloride (MICRO-K) 10 mEq CR capsule Take 20 mEq by mouth 2 times daily. 7 fUROsemide (LASIX) 40 mg tablet Take 40 mg by mouth daily. 5 valsartan (DIOVAN) 320 mg tablet Take 320 mg by mouth daily. 8 atenolol (TENORMIN) 50 mg tablet Take 50 mg by mouth daily. 5 amLODIPine (NORVASC) 10 mg tablet Take 10 mg by mouth daily. 5 guaiFENesin-dext romethorphan (ROBITUSSIN DM) 10-100 mg/5 mL syrup Take 10 mL by mouth every 4 hours as needed for Cough. 8 haloperidol (HALDOL) 5 mg tablet Take 5 mg by mouth every 4 hours as needed for Agitation (every 4 hours as needed for agitation). 8 added in this encounter
--- OUTSIDE RECORDS SUMMARY | 2024-02-27 10:45 | XMS_ITS | Encounter Summary ---
Author Organization [place] [address] Care Team Providers Care Plodder Operator Name Role Phone Salo Segovia MD, [facility] Primary Care [facility] er Reason for Visit * Reason Onset Date Comments Hospital Follow Up 03/02/2015 Encounter Details Date Type Department Care Team (Late st Contact Info) Description 03/02/2015 Telephone SEP H&V [facility] [address] [place] [address] Wander Yeh MD [address] [place] [phone] Hospital Follow Up Social History Tobacco Use Types [...] encounter Miscellaneous Notes * Telephone Encounter - Mickie Haji RMA - 03/10/2015 10:15 AM EST That apparently doesn't work due to pt needing 3 days notice because of transportation. * Telephone Encounter - Mickie Haji RMA - 03/10/2015 8:41 AM EST Please advise on CHF appt * Telephone Encounter - Ilda Bonner RMA - 03/09/2015 10:20 AM EST Pt dc'd 03/07/15 need hfu * Telephone Encounter - Rose Mary Andrade RMA - 03/04/2015 7:49 AM EST Still inpt 03/04/2015 * Telephone Encounter - Laila Bo RMA - 03/03/2015 7:19 AM EST Pt is currently still admitted. * Telephone Encounter - Laila Bo RMA - 03/02/2015 1:59 PM EST Pt is currently still admitted; will contact patient upon discharge to schedule HFU appointment. * Telephone Encounter - Laila Bo RMA - 03/02/2015 1:59 PM EST ----- Message from Teagan Walter sent at 03/02/2015 1:20 PM EST ----- Regarding: FW: hf pt ----- Message ----- From: Cristy Moralez RN Sent: 03/02/2015 1:06 PM To: [facility] Heart Failure Referrals Subject: hf pt Sent in from Dr Yeh office with HF. Plan is to [place] at d/c. Consider HF visit when able. documented in this encounter Plan of Treatment Not on file documented as of this encounter Visit Diagnoses Not on filedocumented in this encounter Care Teams Plodder Operator Relationship Specialty Start Date End Date Kevin Leong Sr., MD [address] [place] [phone] PCP - General Stunt Performer 10/29/13 documented as of this encounter
--- OUTSIDE RECORDS SUMMARY | 2024-02-27 10:45 | XMS_ITS | Encounter Summary ---
Author Organization [place] [address] Care Team Providers Care Software Implementation Specialist Name Role Phone Unavailable Primary Care Provider Unavailabl e Encounter Details Date Type Department Care Team (Late st Contact Info) Description 07/02/1993 10:01 AM EST - 07/02/1993 11:59 PM EST Hospital Encounter HST EPIC [facility] Ari[facility] Yancey Social History Tobacco Use Types Packs/Day Years Used Date Smoking Tobacco: Never Assessed Sex and Gender Information Value Date Recorded Sex Assigned at Not on file Legal Sex Male 7:45 PM EDT Gender Identity Not on file Sexual Orientation Not on file documented as of this encounter Plan of Treatment Not on file documented as of this encounter Visit Diagnoses Not on filedocumented in this encounter
--- OUTSIDE RECORDS SUMMARY | 2024-02-27 10:45 | XMS_ITS | Encounter Summary ---
Author Organization [facility] Address [facility] [place] [address] Care Team Providers Care Training Executive Name Role Phone Unavailable Primary Care Provider Unavailabl e Encounter Details Date Type Department Care Team (Late st Contact Info) Description 08/05/2008 3:46 PM EDT - 08/08/2008 1:56 PM EDT Hospital Encounter HST BH1 Iggy Triplett MD [address] [facility] [place] [address] Social History Tobacco Use Types Packs/Day Years Used Date Smoking Tobacco: Never Assessed Sex and Gender Information Value Date Recorded Sex Assigned at Not on file Legal Sex Male 7:45 PM EDT Gender Identity Not on file Sexual Orientation Not on file documented as of this encounter Discharge Summaries * Unknown, U - 10/30/2009 12:30 PM EDT documented in this encounter H&P Notes * Unknown, U - 10/30/2009 12:40 PM EDT * Unknown, U - 10/30/2009 12:30 PM EDT documented in this encounter Plan of Treatment Scheduled Orders Name Type Priority Associated Diagnoses Orde r Schedule EK EKG REG Imaging Cardiology Routine Once f or 1 Occurrences starting 06/18/2009 until 06/18/2009, 1 completed documented as of this encounter Procedures Procedure Name Priority Date/Time Associated Diagnosis Comments EK EKG REG Routine 08/06/2008 4:45 PM EDT documented in this encounter Results * EK EKG REG (08/06/2008 4:45 PM EDT) Anatomical Region Laterality Modality Other 08/06/2008 4:45 PM EDT Narrative 08/06/2008 7:26 PM EDT Sinus rhythm with PVC(s) Borderline ECG ? Bottle CapperRigoberto GUIDO ??M.D. ? Reading PhysicianRigoberto GUIDO ??M.D. ? Released Date Time08/06/081925 Procedure Kris Frankel - 06/18/2009 Sinus rhythm with PVC(s) Borderline ECG Bottle CapperRigoberto Veliz PhysicianRigoberto GUIDO M.D. Released Date Time08/06/081925 Iggy Triplett MD [facility] HISTORICAL F inal Result documented in this encounter Visit Diagnoses Not on filedocumented in this encounter
--- OUTSIDE RECORDS SUMMARY | 2024-02-27 10:45 | XMS_ITS | Encounter Summary ---
Author Organization [place] [address] Care Team Providers Care Broke Beater Name Role Phone Unavailable Primary Care Provider Unavailabl e Encounter Details Date Type Department Care Team (Late st Contact Info) Description 06/27/1994 9:41 AM EST - 06/27/1994 11:59 PM EST Hospital Encounter HST EPIC [...]
--- OUTSIDE RECORDS SUMMARY | 2024-02-27 10:45 | XMS_ITS | Encounter Summary ---
Author Organization [place] [address] Care Team Providers Care Coreroom Foundry Laborer Name Role Phone Salo Segovia MD, [facility] Primary Care [facility] er Reason for Visit * Reason Onset Date Comments Hypertension 04/06/2015 Encounter Details Date Type Department Care Team (Late st Contact Info) Description 04/06/2015 Telephone SEP H&V [facility] [place] [address] [place] [address] Wander Yeh MD [address] [place] [phone] Hypertension Social History Tobacco Use Types Packs/Day Years Used Date Smoking Tobacco: Never Alcohol Use Standard Drinks/Week Comments No 0 (1 standard drink = 0.6 oz pur e alcohol) Sex and Gender Information Value Date Recorded Sex Assigned at Not on file Legal Sex Male 7:45 PM EDT Gender Identity Not on file Sexual Orientation Not on file documented as of this encounter Ordered Prescriptions Prescription Sig Dispense Quantity Refills Last Filled Start Date End Date amLODIPine (NORVASC) 2.5 mg Oral TabletIndications:E ssential hypertension Take 1 Tab by mouth daily. 30 Tab 11 04/06/2015 04/23/2015 documented in this encounter Miscellaneous Notes * Telephone Encounter - Herlinda Rae APRN - 04/14/2015 8:00 AM EST MD or DOCUMENT ANALYST to address his BP issues. * Telephone Encounter - Mickie Haji Loli - 04/14/2015 7:51 AM EST Can this be with an DOCUMENT ANALYST? * Telephone Encounter - Maureen Stein RN - 04/13/2015 4:56 PM EST To Amy, could you please schedule Pt per below? Thank you! * Telephone Encounter - Jazz Tate APRN - 04/13/2015 4:38 PM EST Please make a HFU visit for him in the next week with MD. He has not been seen since discharge. Thanks * Telephone Encounter - Maureen Stein RN - 04/13/2015 4:16 PM EST Received a call from the travel assistant at [facility], who is asking if Pt should be seen my MD. States the recent med addition below is not bringing Pt's BP down. This AM 178/86, hasbeen running 160's/80's and his feet and legs are swelling. Pt denies any CP and no SOB noted. To DOCUMENT ANALYST for further input, thank you. * Telephone Encounter - Maureen Stein RN - 04/06/2015 3:54 PM EST Called and D/W RN, agreeable. Rx sent to their pharmacy at this time. * Telephone Encounter - Estefany Tang APRN - 04/06/2015 3:39 PM EST Previously on Norvasc which was stopped during recent hospitalization. Add Norvasc 2.5 mg daily. Will titrate as needed. Ask them to continue to monitor BP. Please call Angela. Thank you * Telephone Encounter - Maureen Stein, TAMICA - 04/06/2015 3:11 PM EST Spoke to the travel assistant at [facility], who states Pt's BP's have remained elevated. This AM 162/80. Pt does c/o some heart pounding at times, denies any CP, no SOB and no edema.RN asking if Pt's meds should be adjusted. Med list reviewed, no changes noted. RN states when Pt first arrived to the [facility] on 03/28, 6 doses of his Carvedilol was missed before they caught it - BP was over 200/100 at that time. To DOCUMENT ANALYST for further input, thank you. documented in this encounter Plan of Treatment Not on file documented as of this encounter Visit Diagnoses Diagnosis Essential hypertension- Primary Unspecified essential hypertension documented in this encounter Care Teams Coreroom Foundry Laborer Relationship Specialty Start Date End Date Kevin Leong Sr., MD [address] [place] [address] [facility] [place] [address] PCP - General Global Marketing Coordinator 10/29/13 documented as of this encounter
--- OUTSIDE RECORDS SUMMARY | 2024-02-27 10:45 | XMS_ITS | Encounter Summary ---
Author Organization [place] [address] Care Team Providers Care Retread Builder Name Role Phone Unavailable Primary Care Provider Unavailabl e Encounter Details Date Type Department Care Team (Late st Contact Info) Description 10/23/1995 10:34 AM EDT - 10/23/1995 11:59 PM EDT Hospital Encounter HST EPIC CON UNK EDG [...]
--- OUTSIDE RECORDS SUMMARY | 2024-02-27 10:45 | XMS_ITS | Encounter Summary ---
Author Organization [place] [address] Care Team Providers Care [employer] Name Role Phone Unavailable Primary Care Provider Unavailabl e Encounter Details Date Type Department Care Team (Late st Contact Info) Description 09/04/1991 10:02 AM EDT - 09/04/1991 11:59 PM EDT Hospital Encounter [facility] EPIC [...]
--- OUTSIDE RECORDS SUMMARY | 2024-02-27 10:45 | XMS_ITS | Encounter Summary ---
Author Organization [place] [address] Care Team Providers Care Senior Analysis Specialist Name Role Phone Unavailable Primary Care Provider Unavailabl e Encounter Details Date Type Department Care Team (Late st Contact Info) Description 03/12/1991 10:11 AM EST - 03/12/1991 11:59 PM EST Hospital Encounter [facility] EPIC [...]
--- OUTSIDE RECORDS SUMMARY | 2024-02-27 10:45 | XMS_ITS | Encounter Summary ---
Author Organization [place] [address] Care Team Providers Care French Translator Name Role Phone Salo Segovia MD, Kevin [place] Primary Care Provid er Reason for Visit * Reason Comments Congestive Heart Failure patient was see n by Dr. Pendleton and told to come to ED for admission to hospital- patient has been short of breath and has large amount of BLE edema * Auth/Cert/Inpt - Closed Specialty Diagnoses / Procedures Referred By Contque t Referred To Contact Diagnoses Acute combined systolic and diastolic congestive heart failure (HCC) Referral ID Status Reason Start Date Expiration Date Visits Re quested Visits Authorized [id number] Closed 1 1 Encounter Details Date Type Department Care Team (Latest Contact Info) Description 02/27/2015 1:54 PM EST - 03/07/2015 5:25 PM EST Hospital Encounter [facility] [address] [place] [address] Hanny Collado MD [address] [place] [address] Ildefonso Hart MD [address] [place] [address] Acute combined systolic and diastolic congestive heart failure (HCC) (Primary Dx) Discharge Disposition: Assisted Facility Social History Tobacco Use Types Packs/Day [...] Sign Reading Time Taken Comments Blood Pressure 134/61 03/07/2015 3:14 PM EST Pulse 79 03/07/2015 3:14 PM EST Temperature 37.1 ??C (98.7 ??F) 03/07/2015 3:14 PM ES T Respiratory Rate 18 03/07/2015 3:14 PM EST Oxygen Saturation 97% 03/07/2015 3:14 PM EST Inhaled Oxygen Concentration - - Weight 123.1 kg (271 lb 6 oz) 03/07/2015 4:19 AM EST Height 182.9 cm (6') 02/27/2015 1:47 PM EST Body Mass Index 36.81 02/27/2015 1:47 PM EST documented in this encounter Discharge Summaries * Ildefonso Hart MD - 03/07/2015 3:07 PM EST [facility] Discharge Summary Patient Name: Renan Goncalves : 1945 Admit Date: 02/27/2015 Discharge Date: 03/07/2015 Admitting Physician: Ildefonso Hart MD Discharge Physician: Ildefonso Hart MD Hospital Course Patient was admitted with acute right sided CHF/ Acute cor pulmonale. He was seen by cardiology andwas treated with diuretic. Patient had 21 liters of urine out during her stay. His symptoms improved considerably. He was seen by physical therapy, short term skilled was recommended. Patient was re-evaluated today, he is stable for discharge. He will continue lasix 40 mg BID. He will see his PCP and insulation applicator as outpatient. Consults: Treatment Team: Consulting Physician: Wander Yeh MD Discharge Exam: BP 148/61 mmHg Pulse 84 Temp(Src) 98 ??F (36.7 ??C) (Oral) Resp 20 Ht 6' (1.829 m) Wt 271lb 6 oz (123.095 kg) BMI 36.80 kg/m2 SpO2 93% Patient not in acute distress. Neck supple, no JVD. Lungs CTA. Heart regular S1, S2 are normal. No murmur. Abd soft, NT, ND, bowel sounds are present. Ext trade edema of the legs. No calf pain. Neuro Alert, awake. No focal deficits. Discharge Diagnoses: Acute right-sided CHF (congestive heart failure) (HCC) Schizophrenia (HCC) Morbid obesity (HCC) Hypertension Bilateral lower extremity edema Morbid obesity due to excess calories (HCC) Essential hypertension Paranoid schizophrenia (HCC) Condition at Discharge: stable Disposition: SNF Discharge Medications:: Medication List START taking these medications carvedilol 25 mg Tab Dose: 25 mg Qty: 60 Tab Refills: 0 Commonly known as: COREG 25 mg, Oral, 2 TIMES DAILY WITH MEALS CHANGE how you take these medications fUROsemide 40 mg Tab Dose: 40 mg Qty: 60 Tab Refills: 0 Commonly known as: LASix 40 mg, Oral, *EVERY 12 HOURS What changed: when to take this CONTINUE taking these medications acetaminophen Tab Dose: 650 mg Refills: 0 Commonly known as: TYLENOL aspirin 81 mg Chew Dose: 81 mg Refills: 0 FLUoxetine 40 mg Cap Dose: 40 mg Refills: 0 Commonly known as: PROzac guaiFENesin-dextromethorphan 10-100 mg/5 mL Syrp Dose: 10 mL Refills: 0 Commonly known as: ROBITUSSIN DM haloperidol 5 mg Tab Dose: 5 mg Refills: 0 Commonly known as: HALDOL potassium chloride 10 mEq Cpsr Dose: 20 mEq Refills: 0 Commonly known as: MICRO-K risperiDONE 4 mg Tab Dose: 4 mg Refills: 0 Commonly known as: RisperDAL simvastatin 10 mg Tab Dose: 10 mg Refills: 0 Commonly known as: ZOCOR terazosin 2 mg Cap Dose: 2 mg Refills: 0 Commonly known as: HYTRIN valsartan 320 mg Tab Dose: 320 mg Refills: 0 Commonly known as: DIOVAN STOP taking these medications amLODIPine 10 mg Tab Commonly known as: NORVASC atenolol 50 mg Tab Commonly known as: TENORMIN Where to Get Your Medications 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 We sent them to a specific pharmacy, so go there to get them. [facility] [place] [phone] [facility] - [phone] - carvedilol 25 mg Tab - fUROsemide 40 mg Tab [id number] [facility] [address] Follow Up: Kevin Leong Sr., MD [address] [place] [id number] [facility] [address] [facility] [id number] Time spent > 30 mn Signed: Ildefonso Hart MD 03/07/2015 3:07 PM documented in this encounter Discharge Instructions * Attachments The following attachments cannot be sent through Care Everywhere. * CONGESTIVE HEART FAILURE-BRIEF (BOTSWANAN) documented in this encounter Medications at Time of Discharge acetaminophen Oral tablet Take 650 mg by mouth every 4 hours as needed for Pain (2 tabs for elevated temp/discomfort ). Aspirin 81 mg Take 81 mg by mouth daily. FLUoxetine (PROZAC) 40 mg capsule Take 40 mg by mouth 2 times daily. carvedilol (COREG) 25 mg Oral Tablet Take 1 Tab by mouth 2 times daily (with meals) for 30 days. 60 Tab 0 03/07/2015 5 fUROsemide (LASIX) 40 mg Oral Tablet Take 1 Tab by mouth every 12 hours for 30 days. 60 Tab 0 03/07/2015 5 guaiFENesin-dext romethorphan (ROBITUSSIN DM) 10-100 mg/5 [...] Refills Last Filled Start Date End Date fUROsemide (LASIX) 40 mg Oral Tablet Take 1 Tab by mouth every 12 hours for 30 days. 60 Tab 0 03/07/2015 04/06/2015 carvedilol (COREG) 25 mg Oral Tablet Take 1 Tab by mouth 2 times daily (with meals) for 30 days. 60 Tab 0 03/07/2015 04/06/2015 documented in this encounter Discharge Disposition Disposition Code Departure Means Destination Assisted Facility Humberto David documented in this encounter Progress Notes * Nurys Ruiz, TAMICA - 03/07/2015 4:32 PM EST 03/07/15 1600 Discharge Planning Evaluation Actual Discharge Plan 03/07/15 Notified by nursing that patient can be discharged today. Patient's plan is to go to [facility] level of care. Spoke with patient at bedside and met with primary nurse. Safest option for transport was decided to be a wheelchair van. Care Coordination department authorizing [facility] wheelchair van transport. Nursing aware of plans. Spoke with nurse at [facility] who reported that patient was able to be accepted for admission today and [facility] called and time for wheelchair van arranged for 5pm. Nursing aware. Foundry Finisher available if needed. * Jaelyn Meneses RN - 03/07/2015 4:28 PM EST IV removed without complication. groundwater monitoring technician removed and returned to nurses station. Aide helping to pack pt belongings. Meds removed from med drawer and returned to pharmacy. Report called to Dana at [facility]. Pt awaiting transport to [place] [facility] at this time. * Ashely Franklin, PT - 03/07/2015 2:53 PM EST 03/07/15 1433 PT Subjective Patient Room/Unit 3707-PT Treatment PT Subjective Comments #1 In chair, agreeable Pain Screening PT/OT Patient Currently in Pain Denies Cognition Overall Cognitive Status Impaired Receptive WFL Expressive Dysarthric Precautions Precaution info given Yes;To use call light to request assistance with all mobililty Observation Presentation Patient seated in chair Observation IV;Pearl Glue Drier;Chair Alarm;Hwang Catheter Transfers Sit to Stand Stand by assist Stand to Sit Contact guard assist Gait PT Gait Contact guard assist Gait Distance (Feet) 35 Feet Assistive Device 2 Wheel walker Pattern Flexed posture;Slow suzi Additional Comments Very slow gait, non functional suzi. Required 12 min to walk to bathroom, brush teeth and walk back. Vitals VSS after gait, SpO2 92% Balance Sitting - Static Good minus Sitting - Dynamic Fair plus Standing - Static Fair plus;Requires upper extremity support Standing - Dynamic Fair;Requires upper extremity support Special Balance Tests stands at sink to perform self care with close SBA Exercise Exercise Yes Seated Seated LAQ's x15 B Seated Hip Flex/Marching x10 B Seated DF/PF x15 B Education Education Role of Therapy;Patient/Family Education;Up with assistance only Patient Safety Patient Safety Patient left in chair with needs in reach;Chair/personal alarm activated Assessment Assessment Decreased gait;Decreased balance;Decreased functional mobility;Decreased RightLower Extremity strength;Decreased Left Lower Extremity strength;Decreased activity tolerance ;Decreased safety judgement ;Decreased endurance Prognosis Good;With continued PT s/p acute discharge Progress Improving as expected Rationale for Skilled Therapy Fall Risk;Balance Deficits;Not safe ambulating independently Goals Pt will perform Sit to Stand Met;With stand by assist;New goal;Supervision Pt Will Ambulate Met;11-30 feet;With 2 wheel walker;With contact guard assistance;New goal;51-100 feet;With stand by assist Plan Treatment/Interventions Continue with current plan of care Recommendation PT Recommendation Short-term skilled PT;Long-term skilled PT PT Equipment Recommended 2 Wheel walker Time In / Time Out 1409/1433 IP PT Treatment Minutes 24 (gait, TE) * Jaelyn Meneses RN - 03/07/2015 12:05 PM EST Pt has been having episodes of high BP's over past 24 hours. Addressed concern with who added PRN hydralazine for BP over 170 and increased Cardura. Will continue to monitor. * Ildefonso Hart MD - 03/07/2015 11:12 AM EST Images from the original note were not included. Adult Progress Note Admit Date: 02/27/2015 LOS: 8 days HPI: Renan Goncalves is a(n)69 y.o. male being followed for Acute combined systolic and diastolic congestive heart failure Subjective: Seen today, he feels better. He has no complaints. Scheduled Meds: ??? carvedilol 25 mg Oral BID WM ??? sodium chloride 0.9% Intravenous 3 times per day ??? aspirin 81 mg Oral Daily ??? atorvastatin 10 mg Oral Every Other Night ??? doxazosin 2 mg Oral Daily ??? FLUoxetine 40 mg Oral BID ??? risperiDONE 4 mg Oral BID ??? enoxaparin 40 mg Subcutaneous 2 times per day ??? miconazole Topical BID Continuous Infusions: Objective: BP 148/61 mmHg Pulse 84 Temp(Src) 98 ??F (36.7 ??C) (Oral) Resp 20 Ht 6' (1.829 m) Wt 271lb 6 oz (123.095 kg) BMI 36.80 kg/m2 SpO2 93% Patient not in acute distress. Neck supple, no JVD. Lungs CTA. Heart regular S1, S2 are normal. No murmur. Abd soft, NT, ND, bowel sounds are present. Ext trade edema of the legs. No calf pain. Neuro Alert, awake. No focal deficits. Labs: CBC: Lab Results Component Value Date WBC 6.5 02/27/2015 RBC 3.65* 02/27/2015 HGB 11.3* 02/27/2015 HCT 35.0* 02/27/2015 MCV 95.7 02/27/2015 MCHC 32.2 02/27/2015 PLT 183 02/27/2015 BMP: Lab Results Component Value Date NA 144 03/06/2015 K 3.3* 03/06/2015 CL 100 03/06/2015 CO2 29 03/06/2015 BUN 47* 03/06/2015 CREATININE 2.22* 03/06/2015 CALCIUM 8.9 03/06/2015 GLU 128* 03/06/2015 Coagulation: No results found for: INR, APTT Accucheck Results: Radiology results: Scanned Rhythm Strips 03/07/2015 Ordered by an unspecified provider. Assessment/Plan 1.Bilateral lower extremity edema/SOB. Likely Acute right-sided CHF ( cor pulmonale)/ acute diastolic dysfunction. Improved. - Patient is now off Lasix due to KARINA. -Hold Diovan and continue Coreg -Continue lower extremity compression with Neptali hose. -Closely monitor renal function. 2.Essential Hypertension. Blood pressure is acceptable -Continue BP meds including Coreg Cardura. -Will use Hydralazine as needed for SBP > 170 or DBP > 100 3. Hyperlipidemia. -Lipitor 10 mg QOD. 4.Morbid obesity. -Weight loss recommended. 5.Schizophrenia. -On home medications including Haldol, Risperdal and Prozac. 6. Hypokalemia. Resolved. -Continue K-dur 40 meq daily. 7. Hypernatremia. Mild. Continue to monitor. 8. KARINA. Likely secondary to Lasix. -Lasix infusion is now off -Monitor renal function. 9. DVT prophylaxis. -Lovenox 40 mg s/c daily. 10. Disposition. To be discharged to the [place] when renal function improves. Ildefonso Hart MD * Freddie Velázquez MD - 03/07/2015 10:53 AM EST Admit Date: 02/27/2015 Renan Goncalves is a(n)69 y.o. male Subjective: Patient seen and examined. Pertinent Data and Labs Reviewed. Events for the past 24 hrs noted. Stable, BMP pending. Over 21 Lit negative. Objective: Intake/Output Summary (Last 24 hours) at 03/07/15 1053 Last data filed at 03/07/15 1033 Gross per 24 hour Intake 1691 ml Output 3300 ml Net -1609 ml Wt Readings from Last 3 Encounters: 03/07/15 271 lb 6 oz (123.095 kg) 02/27/15 314 lb (142.429 kg) 05/29/14 262 lb (118.842 kg) Telemetry: NSR Current Medications Reviewed Physical Exam: Vital Signs - [id number] Patient Vitals for the past 6 hrs: BP Temp Temp src Pulse Resp SpO2 03/07/15 0932 148/61 mmHg - - 84 20 93 % 03/07/15 0814 - - - - - 91 % 03/07/15 0807 182/65 mmHg 98 ??F (36.7 ??C) Oral 80 18 (!) 88 % NECK JVP normal CHEST/LUNGS:B/L decreased. HEART:Nl S1 and S2 no Murmur Abdomen: soft, NT Ext: 1+ edema Neuro Intact no focal deficits. LABS: No results found for: TROPONINI Lab Results Component Value Date WBC 6.5 02/27/2015 HGB 11.3* 02/27/2015 HCT 35.0* 02/27/2015 PLT 183 02/27/2015 NA 144 03/06/2015 K 3.3* 03/06/2015 CREATININE 2.22* 03/06/2015 BUN 47* 03/06/2015 GLU 128* 03/06/2015 DIAGNOSTICS: Assessment: Acute on Chronic Cor Pulmonale Acute on Chronic Diastolic HF - LVEF 60-65% - Net diuresis Since Admit:More than 19 Lit Hypertension Obesity PLAN: Over 21 Lit negative. Check BMP Continue to Hold Diovan and lasix for now. Increase activity. Freddie Velázquez MD 03/07/2015 10:53 AM * Sloane Swartz RN - 03/06/2015 4:07 PM EST Pt. Was complaining of pain from hwang catheter. Hwang catheter balloon was deflated and advanced. Urine output is slightly pink tinged. Will continue to monitor. * Freddie Velázquez MD - 03/06/2015 1:10 PM EST Admit Date: 02/27/2015 Renan Goncalves is a(n)69 y.o. male Subjective: Patient seen and examined. Pertinent Data and Labs Reviewed. Events for the past 24 hrs noted. Sitting up in chair.says breathing better, Cr noted. Objective: Intake/Output Summary (Last 24 hours) at 03/06/15 1310 Last data filed at 03/06/15 1302 Gross per 24 hour Intake 1717.42 ml Output 801 ml Net 916.42 ml Wt Readings from Last 3 Encounters: 03/06/15 271 lb 8 oz (123.152 kg) 02/27/15 314 lb (142.429 kg) 05/29/14 262 lb (118.842 kg) Telemetry: NSR Current Medications Reviewed Physical Exam: Vital Signs - [id number] Patient Vitals for the past 6 hrs: BP Temp Temp src Pulse Resp SpO2 03/06/15 1104 141/58 mmHg 98.4 ??F (36.9 ??C) Oral 80 16 97 % 03/06/15 0727 129/64 mmHg 98 ??F (36.7 ??C) Oral 88 16 97 % NECK JVP normal CHEST/LUNGS:B/L clear HEART:Nl S1 and S2 no Murmur Abdomen: soft, NT Ext: 1+ edema Neuro Intact no focal deficits. LABS: No results found for: TROPONINI Lab Results Component Value Date WBC 6.5 02/27/2015 HGB 11.3* 02/27/2015 HCT 35.0* 02/27/2015 PLT 183 02/27/2015 NA 144 03/06/2015 K 3.3* 03/06/2015 CREATININE 2.22* 03/06/2015 BUN 47* 03/06/2015 GLU 128* 03/06/2015 DIAGNOSTICS: Assessment: Acute on Chronic Cor Pulmonale Acute on Chronic Diastolic HF - LVEF 60-65% - Net diuresis Since Admit:More than 19 Lit Hypertension Obesity PLAN: Discontinue Lasix Gtt will resume Diuretic PO based upon renal functions in AM. Check TSH Increase activity. Freddie Velázquez MD 03/06/2015 1:10 PM * Ildefonso Hart MD - 03/06/2015 11:11 AM EST Images from the original note were not included. Adult Progress Note Admit Date: 02/27/2015 LOS: 7 days HPI: Renan Goncalves is a(n)69 y.o. male being followed for Acute combined systolic and diastolic congestive heart failure. Subjective: Seen today, he states feeling great . He has no complaints. No acute events noted by nursing. Scheduled Meds: ??? potassium chloride 40 mEq Oral Daily WM ??? carvedilol 25 mg Oral BID WM ??? sodium chloride 0.9% Intravenous 3 times per day ??? aspirin 81 mg Oral Daily ??? atorvastatin 10 mg Oral Every Other Night ??? doxazosin 2 mg Oral Daily ??? valsartan 320 mg Oral Daily ??? FLUoxetine 40 mg Oral BID ??? risperiDONE 4 mg Oral BID ??? enoxaparin 40 mg Subcutaneous 2 times per day ??? miconazole Topical BID Continuous Infusions: ??? fUROsemide (LASix) infusion 20 mg/hr (03/06/15 0712) Objective: BP 141/58 mmHg Pulse 80 Temp(Src) 98.4 ??F (36.9 ??C) (Oral) Resp 16 Ht 6' (1.829 m) Wt 271 lb 8 oz (123.152 kg) BMI 36.81 kg/m2 SpO2 97% Patient not in acute distress. Neck supple, no JVD. Lungs CTA. Heart regular S1, S2 are normal. No murmur. Abd soft, NT, ND, bowel sounds are present. Ext bilateral lower extremity edema. Much improved from before. No calf pain. Neuro Alert awake. No focal deficits. Labs: CBC: Lab Results Component Value Date WBC 6.5 02/27/2015 RBC 3.65* 02/27/2015 HGB 11.3* 02/27/2015 HCT 35.0* 02/27/2015 MCV 95.7 02/27/2015 MCHC 32.2 02/27/2015 PLT 183 02/27/2015 BMP: Lab Results Component Value Date NA 144 03/06/2015 K 3.3* 03/06/2015 CL 100 03/06/2015 CO2 29 03/06/2015 BUN 47* 03/06/2015 CREATININE 2.22* 03/06/2015 CALCIUM 8.9 03/06/2015 GLU 128* 03/06/2015 Coagulation: No results found for: INR, APTT Accucheck Results: Radiology results: Scanned Rhythm Strips 03/06/2015 Ordered by an unspecified provider. Assessment/Plan 1.Bilateral lower extremity edema/SOB. Likely Acute right-sided CHF ( cor pulmonale)/ acute diastolic dysfunction. Improved. - On IV Lasix infusion as recommended by cardiology. I would stop this as his BUN and creatinine are rising. -Continue Diovan and Atenolol -Continue lower extremity compression with Neptali hose. -Closely monitor renal function while on Lasix drip. 2.Essential Hypertension. Blood pressure is acceptable -Continue BP meds including Cored, Diovan, Cardura. 3. Hyperlipidemia. -Lipitor 10 mg QOD. 4.Morbid obesity. -Weight loss recommended. 5.Schizophrenia. -On home medications including Haldol, Risperdal and Prozac. 6. Hypokalemia. Resolved. -Continue K-dur 40 meq daily. 7. Hypernatremia. Mild. Continue to monitor. 8. KARINA. Likely secondary to Lasix. -I would suggest discontinuation of Lasix infusion but will defer this to cardiology. -Monitor renal function. 9. DVT prophylaxis. -Lovenox 40 mg s/c daily. 10. Disposition. To be discharged to the [place] later today if it is okay with cardiology. Ildefonso Hart MD * Makenzie Lopez RN - 03/06/2015 11:09 AM EST 03/06/15 1108 Discharge Planning Evaluation Actual Discharge Plan 03/06/15 CC Update: [place] willing to accept patient at discharge. He willtransport via [employer]. Patient plans to return to [facility] post skilled stay. Will continue to follow. Anticipated post-acute care needs Nursing Facility [facility]erral [facility] Level of Care Skilled * Freddie Velázquez MD - 03/05/2015 12:57 PM EST Admit Date: 02/27/2015 Renan Goncalves is a(n)69 y.o. male Subjective: Patient seen and examined. Pertinent Data and Labs Reviewed. Events for the past 24 hrs noted. Sitting up in chair. Some what delusional answers tangentially. Awake and alert otherwise oriented to self. Objective: Intake/Output Summary (Last 24 hours) at 03/05/15 1257 Last data filed at 03/05/15 0925 Gross per 24 hour Intake 1699 ml Output 1750 ml Net -51 ml Wt Readings from Last 3 Encounters: 03/05/15 267 lb 14.4 oz (121.519 kg) 02/27/15 314 lb (142.429 kg) 05/29/14 262 lb (118.842 kg) Telemetry: NSR Current Medications Reviewed Physical Exam: Vital Signs - [id number] Patient Vitals for the past 6 hrs: BP Pulse Resp SpO2 03/05/15 0907 143/61 mmHg 79 18 96 % NECK JVP normal CHEST/LUNGS:B/L decreased at the bases. HEART:Nl S1 and S2 no Murmur Abdomen: soft, NT Ext: 2/3 + edema Neuro Intact no focal motor deficits. LABS: No results found for: TROPONINI Lab Results Component Value Date WBC 6.5 02/27/2015 HGB 11.3* 02/27/2015 HCT 35.0* 02/27/2015 PLT 183 02/27/2015 NA 148* 03/05/2015 K 3.5 03/05/2015 CREATININE 1.40* 03/05/2015 BUN 27* 03/05/2015 GLU 130* 03/05/2015 DIAGNOSTICS: Assessment: Acute on Chronic Cor Pulmonale Acute on Chronic Diastolic HF - LVEF 60-65% - Net diuresis Since Admit:More than 19 Lit Hypertension Obesity PLAN: Cr slightly elevated today. Continue to diuresis with Lasix Gtt one more day. Increase activity. Freddie Velázquez MD 03/05/2015 12:57 PM * Ildefonso Hart MD - 03/05/2015 11:45 AM EST Images from the original note were not included. Adult Progress Note Admit Date: 02/27/2015 LOS: 6 days HPI: Renan Goncalves is a(n)69 y.o. male being followed for acute on chronic cor pulmonale/Acute diastolic CHF. Subjective: Seen today, he feels tired. He denies any other symptoms. No acute events noted by nursing. Scheduled Meds: ??? potassium chloride 40 mEq Oral Daily WM ??? carvedilol 25 mg Oral BID WM ??? sodium chloride 0.9% Intravenous 3 times per day ??? aspirin 81 mg Oral Daily ??? atorvastatin 10 mg Oral Every Other Night ??? doxazosin 2 mg Oral Daily ??? valsartan 320 mg Oral Daily ??? FLUoxetine 40 mg Oral BID ??? risperiDONE 4 mg Oral BID ??? enoxaparin 40 mg Subcutaneous 2 times per day ??? miconazole Topical BID Continuous Infusions: ??? fUROsemide (LASix) infusion 20 mg/hr (03/05/15 0506) Objective: BP 143/61 mmHg Pulse 79 Temp(Src) 97.5 ??F (36.4 ??C) (Oral) Resp 18 Ht 6' (1.829 m) Wt 267 lb 14.4 oz (121.519 kg) BMI 36.33 kg/m2 SpO2 96% Patient not in acute distress. Neck supple, no JVD. Lungs CTA. Heart regular S1, S2 are normal. No murmur. Abd soft, NT, ND, bowel sounds are present. Ext Dependent edema of the legs associated with changes of chronic venous stasis. Neuro Alert, awake. No focal deficits. Labs: CBC: Lab Results Component Value Date WBC 6.5 02/27/2015 RBC 3.65* 02/27/2015 HGB 11.3* 02/27/2015 HCT 35.0* 02/27/2015 MCV 95.7 02/27/2015 MCHC 32.2 02/27/2015 PLT 183 02/27/2015 BMP: Lab Results Component Value Date NA 148* 03/05/2015 K 3.5 03/05/2015 CL 101 03/05/2015 CO2 33* 03/05/2015 BUN 27* 03/05/2015 CREATININE 1.40* 03/05/2015 CALCIUM 8.4* 03/05/2015 GLU 130* 03/05/2015 Coagulation: No results found for: INR, APTT Accucheck Results: Radiology results: Scanned Rhythm Strips 03/05/2015 Ordered by an unspecified provider. Assessment/Plan 1.Bilateral lower extremity edema/SOB. Likely Acute right-sided CHF ( cor pulmonale)/ acute diastolic dysfunction. Improved. - On IV Lasix infusion as recommended by cardiology. May consider slowing as his BUN and creatinineare rising. -Continue Diovan and Atenolol -Continue lower extremity compression with Neptali hose. -Closely monitor renal function while on Lasix drip. 2.Essential Hypertension. Blood pressure is acceptable -Continue BP meds including Cored, Diovan, Cardura. 3. Hyperlipidemia. -Lipitor 10 mg QOD. 4.Morbid obesity. -Weight loss recommended. 5.Schizophrenia. -On home medications including Haldol, Risperdal and Prozac. 6. Hypokalemia. Resolved. -Continue K-dur 40 meq daily. 7. Hypernatremia. Mild. Continue to monitor. 8. DVT prophylaxis. -Lovenox 40 mg s/c daily. 10. Disposition. To be discharged to the [place] tomorrow if he comes off IV lasix today. Ildefonso Hart MD * Pederson, Chelsey, PT - 03/04/2015 2:41 PM EST 03/04/15 1441 PT Subjective Patient Room/Unit 3707--PT TREATMENT PT Subjective Comments #1 agreeable to PT, pleasant and cooperative Pain Screening PT/OT Patient Currently in Pain Denies Cognition Overall Cognitive Status Impaired Precautions Precaution info given To use call light to request assistance with all mobililty Observation Presentation Patient resting in bed Observation IV;Pearl Glue Drier Bed Mobility Supine to Sit Min assist Transfers Sit to Stand Contact guard assist Stand to Sit Contact guard assist Bed to Chair Contact guard assist Stand Pivot Transfers Contact guard assist Gait PT Gait Contact guard assist Gait Distance (Feet) 30 Feet Assistive Device 2 Wheel walker Pattern Slow suzi (decreased height and stride length noted; ) Additional Comments pt able to stand at sink x4 minutes for functional balance tasks/ADL with CGA, no gross LOB noted Balance Sitting - Static Good minus Sitting - Dynamic Fair plus Standing - Static Fair plus Standing - Dynamic Fair;Requires upper extremity support Education Education Patient/Family Education;Role of Therapy;Safety with mobility;Cues for proper technique;Discharge planning;Up with assistance only;Precautions;Safe and proper technique with transfers;Safe and proper technique with gait pattern Patient Safety Patient Safety Patient left in chair with needs in reach;Nursing notified of status;Chair/personal alarm activated Assessment Assessment Decreased gait;Decreased functional mobility;Decreased balance;Decreased RightLower Extremity strength;Decreased Left Lower Extremity strength;Decreased activity tolerance ;Decreased safety judgement ;Decreased endurance;Decreased self-care trans;Decreased high-level ADLs Prognosis Good;With continued PT s/p acute discharge Progress Progressing toward goals Rationale for Skilled Therapy Fall Risk;Balance Deficits;Not safe with independent transfers;Not safe ambulating independently Plan Treatment/Interventions Continue with current plan of care Recommendation PT Recommendation Short-term skilled PT PT Equipment Recommended 2 Wheel walker Time In / Time Out [id number] IP PT Treatment Minutes 25 (10 TA, 15 Gait) * Ildefonso Hart MD - 03/04/2015 10:42 AM EST Images from the original note were not included. Adult Progress Note Admit Date: 02/27/2015 LOS: 5 days HPI: Renan Goncalves is a(n)69 y.o. male being followed for Acute combined systolic and diastolic congestive heart failure (HCC) [I50.41]. Subjective: Seen today, he states feeling well. He has no complaints. No acute events noted by nursing. Scheduled Meds: ??? potassium chloride 40 mEq Oral Once ??? carvedilol 25 mg Oral BID WM ??? sodium chloride 0.9% Intravenous 3 times per day ??? aspirin 81 mg Oral Daily ??? atorvastatin 10 mg Oral Every Other Night ??? doxazosin 2 mg Oral Daily ??? valsartan 320 mg Oral Daily ??? FLUoxetine 40 mg Oral BID ??? risperiDONE 4 mg Oral BID ??? enoxaparin 40 mg Subcutaneous 2 times per day ??? miconazole Topical BID Continuous Infusions: ??? fUROsemide (LASix) infusion 20 mg/hr (03/04/15 0720) Objective: BP 165/65 mmHg Pulse 77 Temp(Src) 98.2 ??F (36.8 ??C) (Oral) Resp 18 Ht 6' (1.829 m) Wt 271 lb 3 oz (123.01 kg) BMI 36.77 kg/m2 SpO2 93% Patient not in acute distress. Neck supple, no JVD. Lungs CTA. Heart regular S1, S2 are normal. No murmur. Abd soft, NT, ND, bowel sounds are present. Ext Improving edema of the legs. No calf pain. Neuro Alert, awake. No focal deficits. Labs: CBC: Lab Results Component Value Date WBC 6.5 02/27/2015 RBC 3.65* 02/27/2015 HGB 11.3* 02/27/2015 HCT 35.0* 02/27/2015 MCV 95.7 02/27/2015 MCHC 32.2 02/27/2015 PLT 183 02/27/2015 BMP: Lab Results Component Value Date NA 143 03/04/2015 K 3.3* 03/04/2015 CL 98 03/04/2015 CO2 31* 03/04/2015 BUN 20 03/04/2015 CREATININE 1.26 03/04/2015 CALCIUM 9.1 03/04/2015 GLU 107* 03/04/2015 Coagulation: No results found for: INR, APTT Accucheck Results: Radiology results: Scanned Rhythm Strips 03/04/2015 Ordered by an unspecified provider. Assessment/Plan 1.Bilateral lower extremity edema/SOB. Likely Acute right-sided CHF ( cor pulmonale)/ acute diastolic dysfunction. - Restarted on IV Lasix infusion as recommended by cardiology -Continue Diovan and Atenolol -Continue lower extremity compression with Neptali hose. -Monitor renal function while on Lasix drip. 2.Essential Hypertension. Blood pressure is acceptable -Continue BP meds including Cored, Diovan, Cardura. 3. Hyperlipidemia. -Lipitor 10 mg QOD. 4.Morbid obesity. -Weight loss recommended. 5.Schizophrenia. -On home medications including Haldol, Risperdal and Prozac. 6. Hypokalemia. K-dur 40 meq daily. 7. DVT prophylaxis. -Lovenox 40 mg s/c daily. 9. Disposition. PT recommendations are noted. To be discharged when okay with cardiology. Ildefonso Hart MD * Rosette Faye RN - 03/04/2015 10:01 AM EST 03/04/15 1001 Discharge Planning Evaluation Actual Discharge Plan 03/04 cc pt seen at bedside lives at [facility]. Hallie from [facility] is independent there. Patient only walking 2 feet with PT. Patient would like to go to [facility] for skilled care at discharge. Referral sent via [employer]. transporation per medicab. lasix iv gtt started. cc to follow * Ney Stevens MD - 03/04/2015 9:54 AM EST Cardiology Note: Renan Goncalves Today's Date: 03/04/2015 LOS: 5 days Subjective: Laying in bed in NAD. More conversive today but difficult to understand. Reports breathing is better when he doesn't eat? States cough is getting better . 3.7L out last 24 hours. Net I/O Since Admit: -19L. Weight down additional 11 lbs (if accurate) Objective: Vitals: Filed Vitals: 03/03/15 2323 03/04/15 0344 03/04/15 0351 03/04/15 0814 BP: 155/77 152/59 165/65 Pulse: 75 77 77 Temp: 97.8 ??F (36.6 ??C) 98.3 ??F (36.8 ??C) 98.2 ??F (36.8 ??C) TempSrc: Oral Oral Oral Resp: 18 18 18 Height: Weight: 271 lb 3 oz (123.01 kg) SpO2: 92% 93% 93% Intake and Output: Summary (Last 24 hours) at 03/04/15 0954 Last data filed at 03/04/15 0913 Gross per 24 hour Intake 1226.4 ml Output 3775 ml Net -2548.6 ml Weight: Wt Readings from Last 3 Encounters: 03/04/15 271 lb 3 oz (123.01 kg) 02/27/15 314 lb (142.429 kg) 05/29/14 262 lb (118.842 kg) Labs: Lab Results Component Value Date HGB 11.3* 02/27/2015 HCT 35.0* 02/27/2015 PLT 183 02/27/2015 NA 143 03/04/2015 K 3.3* 03/04/2015 CREATININE 1.26 03/04/2015 BUN 20 03/04/2015 Physical Exam: General: Alert, NAD Lungs: Diminished Heart: RRR Extremities: trace-1+ BLE edema, +2 radial, DP, PT pulses Pearl Glue Drier: NSR, 70's Assessment: Acute on Chronic Cor Pulmonale Acute on Chronic Diastolic HF - LVEF 60-65% - Net diuresis Since Admit: -19L Hypertension Obesity Plan: - Supplement K - Continue diuresis (IV Lasix gtt) - Increase activity as tolerated - Continue ASA, Lipitor, Coreg, Diovan Further input to follow from Dr. Hilda Tang, JULIEN Addendum Patient somewhat delusional, it seems (asking about tanning bed). Denies pain or dyspnea to me, butwith simple answers. Lungs fairly clear Cor Moderate JVD LE edema to the knees Impression: 1. Acute on chronic cor pulmonale. Much better but still decompensated. Some of the edema will be fixed and partially due to venous insufficiency 2. Chronic LV diastolic dysfunction with CHF compensated 3. Hypertension 4. Obesity 5. Schizophrenia Recommendation: ?? Continue lasix gtt 1-2 more days, I suspect ?? K+ replacement given ?? Increase activity ?? Hopefully discharge soon, but with follow up management to try to keep him compensated for as long as possible. Steve Stevens MD * Vangie Samaniego - 03/03/2015 4:18 PM EST Pt. Has no complaints during shift. Has had one episode of incontinence, Lasix gtt started, rednessand blood noted in catheter. Pt has no complaints. Will continue to monitor * Ildefonso Hart MD - 03/03/2015 12:48 PM EST Images from the original note were not included. Adult Progress Note Admit Date: 02/27/2015 LOS: 4 days HPI: Renan Goncalves is a(n)69 y.o. male being followed for Acute combined systolic and diastolic congestive heart failure (HCC) [I50.41]. Subjective: Seen today, he expressed no complaints. No acute events noted by nursing. Scheduled Meds: ??? fUROsemide 40 mg Oral BID Diuretic ??? sodium chloride 0.9% Intravenous 3 times per day ??? aspirin 81 mg Oral Daily ??? atenolol 50 mg Oral Daily ??? atorvastatin 10 mg Oral Every Other Night ??? doxazosin 2 mg Oral Daily ??? valsartan 320 mg Oral Daily ??? FLUoxetine 40 mg Oral BID ??? risperiDONE 4 mg Oral BID ??? enoxaparin 40 mg Subcutaneous 2 times per day ??? miconazole Topical BID Continuous Infusions: Objective: BP 154/63 mmHg Pulse 75 Temp(Src) 97.9 ??F (36.6 ??C) (Oral) Resp 18 Ht 6' (1.829 m) Wt 282 lb 8 oz (128.141 kg) BMI 38.31 kg/m2 SpO2 96% Patient not in acute distress. Neck supple. Lungs decreased breath sounds bilaterally. Heart regular S1, S2 are normal. No murmur. Abd soft, NT, ND, bowel sounds are present. Ext Still with bilateral lower extremity edema. Neuro Alert, awake. No focal deficits. Labs: CBC: Lab Results Component Value Date WBC 6.5 02/27/2015 RBC 3.65* 02/27/2015 HGB 11.3* 02/27/2015 HCT 35.0* 02/27/2015 MCV 95.7 02/27/2015 MCHC 32.2 02/27/2015 PLT 183 02/27/2015 BMP: Lab Results Component Value Date NA 143 03/02/2015 K 3.5 03/02/2015 CL 103 03/02/2015 CO2 31* 03/02/2015 BUN 15 03/02/2015 CREATININE 1.08 03/02/2015 CALCIUM 8.6* 03/02/2015 GLU 103* 03/02/2015 Coagulation: No results found for: INR, APTT Accucheck Results: Radiology results: Scanned Rhythm Strips 03/03/2015 Ordered by an unspecified provider. Assessment/Plan 1.Bilateral lower extremity edema/SOB. Likely Acute right-sided CHF ( cor pulmonale)/ acute diastolic dysfunction. - Restarted on IV Lasix to 40 mg BID as recommended by cardiology -Continue Diovan and Atenolol -Continue lower extremity compression with Neptali hose. 2.Essential Hypertension. Blood pressure is acceptable -Resume home BP meds including atenolol, Diovan, Cardura. 3. Hyperlipidemia. -Lipitor 10 mg QOD. 4.Morbid obesity. -Weight loss recommended. 5.Schizophrenia. -On home medications including Haldol, Risperdal and Prozac. 6. DVT prophylaxis. -Lovenox 40 mg s/c daily. 8. Disposition. PT recommendations are noted. To be discharged when okay with cardiology. Ildefonso Hart MD * Ney Stevens MD - 03/03/2015 9:52 AM EST Cardiology Note: Renan Goncalves Today's Date: 03/03/2015 LOS: 4 days Subjective: Up to chair eating breakfast. Somewhat difficult to obtain information from him but offers no complaints. Somewhat slow to respond when questioned. 4.7 liters out last 24 hours. Net I/O Since Admit: -16.2 liters. BP elevated around 2am and he was given an additional dose of Atenolol. Objective: Vitals: Filed Vitals: 03/03/15 0055 03/03/15 0313 03/03/15 0609 03/03/15 0948 BP: 187/63 170/64 Pulse: 71 75 Temp: 97.8 ??F (36.6 ??C) 97.9 ??F (36.6 ??C) TempSrc: Oral Oral Resp: 18 18 Height: Weight: 282 lb 8 oz (128.141 kg) SpO2: 91% 96% Intake and Output: Summary (Last 24 hours) at 03/03/15 0952 Last data filed at 03/03/15 0609 Gross per 24 hour Intake 1200 ml Output 4700 ml Net -3500 ml Weight: Wt Readings from Last 3 Encounters: 03/03/15 282 lb 8 oz (128.141 kg) 02/27/15 314 lb (142.429 kg) 05/29/14 262 lb (118.842 kg) Labs: Lab Results Component Value Date HGB 11.3* 02/27/2015 HCT 35.0* 02/27/2015 PLT 183 02/27/2015 NA 143 03/02/2015 K 3.5 03/02/2015 CREATININE 1.08 03/02/2015 BUN 15 03/02/2015 Physical Exam: General: A&O, NAD Lungs: Diminished Heart: RRR Extremities: trace-1+ BLE edema, +2 radial, DP, PT pulses Pearl Glue Drier: NSR, 70's Assessment: Acute on Chronic Cor Pulmonale - Fairly well compensated Acute on Chronic Diastolic HF - LVEF 60-65% - Net diuresis Since Admit: -16.2L - Fairly well compensated Hypertension Obesity Plan: - Has been transitioned to PO Lasix - BP remains elevated with widened pulse pressure. Has been off home dose Norvasc since admit. Defer resumption to MD. - Continue ASA, Atenolol, Lipitor, Diovan - PT recommending SNF Further input to follow from Dr. Hilda Tang APRN Addendum Patient offers no specifics as to how he feels. Complains about the cold food (patially eaten on tray), but not much else. Up in chair Lungs clear Cor Moderate JVD. LE edema to just above the knees. Impression: 1. Cor pulmonale ?? Still decompensated 2. CHF ?? Acute on chronic LV diastolic dysfunction. ?? Preserved LVEF ?? Better compensated 3. Hypertension ?? Elevated systolic 4. Obesity 5. Schizophrenia 6. Renal insuffciency Recommendation: ?? Discussed with Dr Hart. Will resume IV (start continuous) diuretic. ?? Would avoid the DHP CCB (previously on amlodipine) ?? Change beta esme, hoping for better BP control * Chelsey Pederson, PT - 03/03/2015 9:32 AM EST 03/03/15 0932 PT Subjective Patient Room/Unit 3139--PT TREATMENT PT Subjective Comments #1 agreeable to Pain Screening PT/OT Patient Currently in Pain Denies Cognition Overall Cognitive Status Impaired Precautions Precaution info given To use call light to request assistance with all mobililty Observation Presentation Patient resting in bed Observation IV;Pearl Glue Drier Bed Mobility Supine to Sit Min assist ;With verbal cues Transfers Sit to Stand Contact guard assist Stand to Sit Contact guard assist Bed to Chair Contact guard assist Stand Pivot Transfers Contact guard assist Gait PT Gait Contact guard assist Gait Distance (Feet) 15 Feet Assistive Device 2 Wheel walker Pattern Slow suzi Additional Comments pt requires cues to use walker in small space for spatial negotiation, pt is receptive to use of RW, states he feels more stable with AD Special Gait Tests breakfast arrived, pt in chair with breakfast tray in front of him, all needs inreach Balance Sitting - Static Good minus Sitting - Dynamic Fair plus Standing - Static Fair plus;Requires upper extremity support Standing - Dynamic Fair;Requires upper extremity support Special Balance Tests with use of RW Exercise Exercise No Education Education Patient/Family Education;Role of Therapy;Safety with mobility;Cues for proper technique;Discharge planning;Up with assistance only;Precautions;Safe and proper technique with transfers;Safe and proper technique with gait pattern Patient Safety Patient Safety Patient left in chair with needs in reach;Chair/personal alarm activated Assessment Assessment Decreased gait;Decreased functional mobility;Decreased balance;Decreased RightLower Extremity strength;Decreased Left Lower Extremity strength;Decreased activity tolerance ;Decreased safety judgement ;Decreased endurance;Decreased self-care trans;Decreased high-level ADLs Prognosis Good;With continued PT s/p acute discharge Progress Progressing toward goals Rationale for Skilled Therapy Fall Risk;Balance Deficits;Not safe with independent transfers;Not safe ambulating independently Plan Treatment/Interventions Continue with current plan of care Recommendation PT Recommendation Short-term skilled PT PT Equipment Recommended 2 Wheel walker Time In / Time Out [id number] IP PT Treatment Minutes 25 (15 gait; 10 TA) * Lashonda Cook RN - 03/03/2015 1:46 AM EST Pt. Blood pressure elevated. Atenolol ordered x once per physician. Will continue to monitor. * Ney Stevens MD - 03/02/2015 10:39 PM EST Cardiology Progress Note Patient seen this AM He seems rather reticent. UNable to provide much byy way of specifics as to how he feels. Apparently up in a chair. On Exam, Vitals BP: 163/62 mmHg, Temp: 98 ??F (36.7 ??C), Temp Source: Oral, Heart Rate: 82, Resp: 18, SpO2: 95 %, Height: 6' (182.9 cm), Weight: 293 lb (132.904 kg) Lungs bibasilar rales Cor marked JVD Little dependent edema Lab Results Component Value Date GLU 103* 03/02/2015 CALCIUM 8.6* 03/02/2015 NA 143 03/02/2015 K 3.5 03/02/2015 CO2 31* 03/02/2015 CL 103 03/02/2015 BUN 15 03/02/2015 CREATININE 1.08 03/02/2015 In summary: 1. Cor pulmonale. Much better compensated 2. CHF. Acute on chronic LV diastolic dysfunction. Better compensated, it seems. 3. Obesity 4. Hypertension. With a wide pulse pressure (limiting Rx) Recommendations: ?? To oral diuretic today or tomorrow ?? Increase activity ?? Baseline functional capacity? * Ildefonso Hart MD - 03/02/2015 3:13 PM EST Images from the original note were not included. Adult Progress Note Admit Date: 02/27/2015 LOS: 3 days HPI: Renan Goncalves is a(n)69 y.o. male being followed for Acute diastolic congestive heart failure. Subjective: Seen today, he feels well. No acute events noted by nursing. Scheduled Meds: ??? fUROsemide 40 mg Intravenous BID Diuretic ??? sodium chloride 0.9% Intravenous 3 times per day ??? aspirin 81 mg Oral Daily ??? atenolol 50 mg Oral Daily ??? atorvastatin 10 mg Oral Every Other Night ??? doxazosin 2 mg Oral Daily ??? valsartan 320 mg Oral Daily ??? FLUoxetine 40 mg Oral BID ??? risperiDONE 4 mg Oral BID ??? enoxaparin 40 mg Subcutaneous 2 times per day ??? miconazole Topical BID Continuous Infusions: Objective: BP 150/55 mmHg Pulse 65 Temp(Src) 98.1 ??F (36.7 ??C) (Oral) Resp 18 Ht 6' (1.829 m) Wt 293 lb (132.904 kg) BMI 39.73 kg/m2 SpO2 96% Patient not in acute distress. Neck supple, no JVD. Lungs CTA. Heart regular S1, S2 are normal. No murmur. Abd soft, NT, ND, bowel sounds are present. Ext Much improved edema of the lower extremities. Neuro Alert, awake. No focal deficits. Labs: CBC: Lab Results Component Value Date WBC 6.5 02/27/2015 RBC 3.65* 02/27/2015 HGB 11.3* 02/27/2015 HCT 35.0* 02/27/2015 MCV 95.7 02/27/2015 MCHC 32.2 02/27/2015 PLT 183 02/27/2015 BMP: Lab Results Component Value Date NA 143 03/02/2015 K 3.5 03/02/2015 CL 103 03/02/2015 CO2 31* 03/02/2015 BUN 15 03/02/2015 CREATININE 1.08 03/02/2015 CALCIUM 8.6* 03/02/2015 GLU 103* 03/02/2015 Coagulation: No results found for: INR, APTT Accucheck Results: Radiology results: Scanned Rhythm Strips 03/02/2015 Ordered by an unspecified provider. Assessment/Plan 1.Bilateral lower extremity edema/SOB. Likely Acute right-sided CHF ( cor pulmonale)/ acute diastolic dysfunction. -Change IV with Lasix to 40 mg oral BID. -Cardiology is following. -Continue Diovan and Atenolol -We will try Neptali hose. 2.Essential Hypertension. Blood pressure is acceptable -Resume home BP meds including atenolol, Diovan, Cardura. 3. Hyperlipidemia. -Lipitor 10 mg QOD. 4.Morbid obesity. -Weight loss recommended. 5.Schizophrenia. -On home medications including Haldol, Risperdal and Prozac. 6. DVT prophylaxis. -Lovenox 40 mg s/c daily. 8. Disposition. PT recommendations are noted. Anticipate discharge tomorrow if okay with cardiology. Ildefonso Hart MD * Makenzie Lopez RN - 03/02/2015 12:24 PM EST 03/02/15 1213 Assessment Complete ED Screening Completed Initial screening complete, no post-acute needs identified at this time Actual Discharge Plan 03/02/15 CC Initial Assessment: Met with patient at bedside. He lives at [facility]. Hallie from [facility] states he is independent there. Patient only walking 2 feet with PT. Patient would like to go to [facility] for skilled care at discharge. Referral sent via [employer]. Will continue to follow. Completed by CC/SW Yes Discharge to SNF Care Coordination Assessment Observation Information Provided to Patient/Family No Assessed In person interview with patient Mental Status Alert and oriented Does patient need staff design engineer? No Activities of Daily Living Needs Assistance Living Arrangements (Person care at [facility]) Where did the patient come from? Other (Comment) (Personal Care at [facility]) Support Systems Agency Quality of Support System Good Type of Home Care Services None Recent decline in your ability to care for yourself physically? Yes Financial Concerns No Obtain prescription meds at discharge? Medicare D/Medicaid Obtain follow up care after discharge? PCP office Discussed discharge plan with patient/family Yes Agency/Facility Options Offered, list provided Yes Patient/Family Prefer Specific Post Acute Care Provider (Specify) Anticipated post-acute care needs Nursing Facility * Ashely Franklin, PT - 03/01/2015 6:27 PM EST 03/01/15 1624 PT Subjective Patient Room/Unit 3707 - PT Eval PT Subjective Comments #1 In chair, agreeable Discharge Information Evaluation to serve as discharge summary if no further treatment provided before the facility discharge Admitting Diagnosis Admitted 02/27 wtih CHF Past Med Hx HTN, paranoid schizo, CHF, PNA Diagnostic Testing Echo EF 60-65%; CXR 02/27 Cardiomegaly with mild diffuse pulmonary edema. Presumed atelectasis right lung base. No other acute findings Pain Screening PT/OT Patient Currently in Pain Denies Cognition Overall Cognitive Status Impaired Receptive WFL Expressive Delayed at times, speaks quietly Arousal/Alertness Appropriate responses to stimuli Attention Span Attends with cues to redirect Memory Decreased recall of recent events Orientation Level Oriented to person;Oriented to place Following Commands Follows one step commands with repetition Safety Judgement Requires verbal cues for safety Insight Decreased awareness of deficits Precautions Precaution info given Yes;To use call light to request assistance with all mobililty Home Living/Prior Function Type of Home Other (comment) (personal care at [facility] [place]) Home Layout Elevator;One level Number of Steps 0 Home Equipment 2 wheel walker;Wheelchair - manual Level of Assistance Needs assistance with ADLs;Needs assistance with homemaking;Ambulatory in home Lives With Personal Care Additional Comments Uses RW in facility per pt and occasional w/c use Sensation Light Touch Partial deficits in the LLE;Partial deficits in the RLE Perception Initiation Cues to initiate tasks Motor Planning Appears intact Perseveration Not present Observation Presentation Patient seated in chair Posture obese, B LE edema Observation IV;Pearl Glue Drier;Hwang Catheter;Chair Alarm;Oxygen - nasal cannula Vitals SpO2 on 2L 88% Right UE Assessment RUE Assessment WFL Left UE Assessment LUE Assessment WFL RLE Assessment RLE Assessment X Additional Comments grossly 3+/5 LLE Assessment LLE Assessment X Additional Comments grossly 3+/5 Bed Mobility Sit to Supine Mod assist Transfers Sit to Stand Min assist Stand to Sit Min assist Bed to Chair Mod assist Additional Comments Stood with CGA from bed x 2 trials . Will transfer better with RW Gait PT Gait Mod assist Gait Distance (Feet) 2 Feet Assistive Device 1 person Pattern Slow suzi;Step to Additional Comments Increased fatigue with transfer Vitals SpO2 86% on 2L . Recovered quickly Balance Sitting - Static Good minus Sitting - Dynamic Fair plus Standing - Static Fair;Requires upper extremity support Standing - Dynamic Fair minus;Requires upper extremity support Education Education Patient/Family Education;Role of Therapy;Cues for proper technique;Up with assistance only Additional Comments sit to stands x 3 trials Patient Safety Patient Safety Patient in bed with needs in reach;Bed alarm activated Assessment Assessment Decreased gait;Decreased functional mobility;Decreased balance;Decreased RightLower Extremity strength;Decreased Left Lower Extremity strength;Decreased activity tolerance ;Decreased endurance Prognosis Good;With continued PT s/p acute discharge Rationale for Skilled Therapy Fall Risk;Balance Deficits;Not safe ambulating independently Goals PT GOALS (Yes/No) Yes Add Goals Pt will perform Sit to Stand With stand by assist Pt Will Ambulate With 2 wheel walker;11-30 feet;With contact guard assistance Goal Formulation With patient Time for Goal Achievement 5 treatments Plan Treatment/Interventions Gait training;Bed mobility;Neuromuscular re- education;Balance training;Functional transfer training;LE strengthening/ROM;Increase activity tolerance PT Frequency 3-5x/week Recommendation PT Recommendation Short-term skilled PT;Long-term skilled PT Time In / Time Out 1702/1720 IP PT Evaluation Minutes 8 IP PT Treatment Minutes 10 (TA) * Ildefonso Hart MD - 03/01/2015 12:15 PM EST Images from the original note were not included. Adult Progress Note Admit Date: 02/27/2015 LOS: 2 days HPI: Renan Goncalves is a(n)69 y.o. male being followed for Acute right and diastolic congestive heart failure. Subjective: Seen today, he feels well. Patient has no new complaints. No acute events noted by nursing. Scheduled Meds: ??? fUROsemide 40 mg Intravenous BID Diuretic ??? sodium chloride 0.9% Intravenous 3 times per day ??? aspirin 81 mg Oral Daily ??? atenolol 50 mg Oral Daily ??? atorvastatin 10 mg Oral Every Other Night ??? doxazosin 2 mg Oral Daily ??? valsartan 320 mg Oral Daily ??? FLUoxetine 40 mg Oral BID ??? risperiDONE 4 mg Oral BID ??? enoxaparin 40 mg Subcutaneous 2 times per day ??? miconazole Topical BID Continuous Infusions: Objective: BP 160/59 mmHg Pulse 69 Temp(Src) 98.2 ??F (36.8 ??C) (Oral) Resp 20 Ht 6' (1.829 m) Wt 293 lb (132.904 kg) BMI 39.73 kg/m2 SpO2 92% Patient not in acute distress. Neck supple, no JVD. Lungs CTA. Heart regular S1, S2 are normal. No murmur. Abd soft, NT, ND, bowel sounds are present. Ext significant bilateral lower extremity edema or calf pain. Neuro Alert , awake. No focal deficits. Labs: CBC: Lab Results Component Value Date WBC 6.5 02/27/2015 RBC 3.65* 02/27/2015 HGB 11.3* 02/27/2015 HCT 35.0* 02/27/2015 MCV 95.7 02/27/2015 MCHC 32.2 02/27/2015 PLT 183 02/27/2015 BMP: Lab Results Component Value Date NA 146* 03/01/2015 K 3.8 03/01/2015 CL 105 03/01/2015 CO2 27 03/01/2015 BUN 15 03/01/2015 CREATININE 1.37* 03/01/2015 CALCIUM 8.3* 03/01/2015 GLU 153* 03/01/2015 Coagulation: No results found for: INR, APTT Accucheck Results: Radiology results: Scanned Rhythm Strips 03/01/2015 Ordered by an unspecified provider. Assessment/Plan 1.Bilateral lower extremity edema/SOB. Likely Acute right-sided CHF ( cor pulmonale)/ acute diastolic dysfunction. -Continue diurese with Lasix 40 mg BID. -Cardiology is following. -Continue, cardura Diovan and Atenolol -BMP in am to monitor renal function. -We will try Neptali hose. 2.Essential Hypertension. Blood pressure is acceptable -Resume home BP meds including atenolol, Diovan, Cardura. 3. Hyperlipidemia. -Lipitor 10 mg QOD. 4.Morbid obesity. -Weight loss recommended. 5.Schizophrenia. -Resume home medications including Haldol, Risperdal and Prozac. 6. DVT prophylaxis. -Lovenox 40 mg s/c daily. 8. Disposition. PT evaluation. Ildefonso Hart MD * EberFreddie MD - 03/01/2015 10:38 AM EST Admit Date: 02/27/2015 Renan Goncalves is a(n)69 y.o. male Subjective: Patient seen and examined. Pertinent Data and Labs Reviewed. Events for the past 24 hrs noted. Diuresed about 10 Lit still feels swollen. Objective: Intake/Output Summary (Last 24 hours) at 03/01/15 1038 Last data filed at 03/01/15 0924 Gross per 24 hour Intake 1330 ml Output 2475 ml Net -1145 ml Wt Readings from Last 3 Encounters: 03/01/15 293 lb (132.904 kg) 02/27/15 314 lb (142.429 kg) 05/29/14 262 lb (118.842 kg) Telemetry: NSR Current Medications Reviewed Physical Exam: Vital Signs - [id number] Patient Vitals for the past 6 hrs: BP Pulse Resp SpO2 03/01/15 0934 160/59 mmHg 69 20 92 % NECK JVP normal CHEST/LUNGS:B/L Clear HEART:Nl S1 and S2 no Murmur Abdomen: soft, NT Ext: 3+ edema, cellulitis B/L Neuro Intact no focal deficits. LABS: No results found for: TROPONINI Lab Results Component Value Date WBC 6.5 02/27/2015 HGB 11.3* 02/27/2015 HCT 35.0* 02/27/2015 PLT 183 02/27/2015 NA 146* 03/01/2015 K 3.8 03/01/2015 CREATININE 1.37* 03/01/2015 BUN 15 03/01/2015 GLU 153* 03/01/2015 DIAGNOSTICS: IMPRESSION: Acute on chronic decompensated cor pulmonale Acute on chronic decompensated Diastolic heart failure. generalized immobility syndrome. Obesity PLAN: Will continue Diureses as tolerated. Cr slightly elevated will follow for now may need to slow the rate of diuresis. Increase activity. Freddie Velázquez MD 03/01/2015 10:38 AM * Erica Davenport RN - 03/01/2015 6:20 AM EST Pt vss, denies pain, afebrile. Pt turned Q2 this shift. F/c in place. Pt resting comfortably this shift. Bed in lowest position, call light in reach, alarm on. * Ildefonso Hart MD - 02/28/2015 1:25 PM EST Images from the original note were not included. Adult Progress Note Admit Date: 02/27/2015 LOS: 1 day HPI: Renan Goncalves is a(n)69 y.o. male being followed for acute CHF. Subjective: Seen today, he states feeling tired. He denies any other symptoms. No chest pain or shortness of breath. Scheduled Meds: ??? sodium chloride 0.9% Intravenous 3 times per day ??? aspirin 81 mg Oral Daily ??? atenolol 50 mg Oral Daily ??? atorvastatin 10 mg Oral Every Other Night ??? doxazosin 2 mg Oral Daily ??? valsartan 320 mg Oral Daily ??? FLUoxetine 40 mg Oral BID ??? risperiDONE 4 mg Oral BID ??? fUROsemide 40 mg Intravenous BID Diuretic ??? enoxaparin 40 mg Subcutaneous 2 times per day ??? miconazole Topical BID Continuous Infusions: Objective: BP 154/60 mmHg Pulse 80 Temp(Src) 98.1 ??F (36.7 ??C) (Oral) Resp 18 Ht 6' (1.829 m) Wt 289 lb 6 oz (131.26 kg) BMI 39.24 kg/m2 SpO2 94% Patient not in acute distress. Neck supple, no JVD. Lungs CTA. Heart regular S1, S2 are normal. No murmur. Abd soft, NT, ND, bowel sounds are present. Ext bilateral lower extremity edema but improving. No calf pain. Neuro Alert, awake. No focal deficits. Labs: CBC: Lab Results Component Value Date WBC 6.5 02/27/2015 RBC 3.65* 02/27/2015 HGB 11.3* 02/27/2015 HCT 35.0* 02/27/2015 MCV 95.7 02/27/2015 MCHC 32.2 02/27/2015 PLT 183 02/27/2015 BMP: Lab Results Component Value Date NA 141 02/28/2015 K 3.3* 02/28/2015 CL 100 02/28/2015 CO2 29 02/28/2015 BUN 12 02/28/2015 CREATININE 1.10 02/28/2015 CALCIUM 8.4* 02/28/2015 GLU 107* 02/28/2015 Coagulation: No results found for: INR, APTT Accucheck Results: Radiology results: Xr Chest Ap Portable 02/27/2015 SINGLE VIEW OF THE CHEST: 02/27/2015 2:55 PM HISTORY: CHF FINDINGS: The heart is enlarged. Mild diffuse pulmonary edema.. Presumed atelectasis right lung base. The costophrenic angles are within normal limits. There is no pleural effusion. No pneumothorax. 02/27/2015 IMPRESSION: Cardiomegaly with mild diffuse pulmonary edema. Presumed atelectasis right lung base. No other acute findings.. Ec Echocardiogram Complete W Doppler And Color Flow Mapping 02/28/2015 CONCLUSIONS This is a technically difficult and limited exam, due to the patient being supine throughout. Left ventricular ejection fraction is in the normal range. No obvious regional wall motion abnormalities. pseudonormal filling pattern of the left ventricle (stage 2 diastolic dysfunction). Normal right ventricular global systolic function. No hemodynamically significant Valve Shelly Velázquez M.D. Ek Ekg 12 Lead 02/27/2015 NOTICE: Preliminary tracing available for review; Final Interpretation by physician to follow. 02/27/[address] [facility] Interpretive Statements SINUS RHYTHM WITH FIRST DEGREE AV BLOCK WITH OCCASIONAL VENTRICULAR PREMATURE COMPLEXES nondiagnostic changes ,nonspecific changes Electronically Signed On 02-27-2015 20:10:36 EST by Eduardo Ramos MD Scanned Rhythm Strips 02/28/2015 Ordered by an unspecified provider. Assessment/Plan 1.Bilateral lower extremity edema/SOB. Likely Acute right-sided CHF ( cor pulmonale)/ acute diastolic dysfunction. -Continue diurese with Lasix 40 mg BID. -Cardiology is following. -Continue, cardura Diovan and Atenolol 2.Essential Hypertension. Blood pressure is acceptable -Resume home BP meds including atenolol, Diovan, Cardura. 3. Hyperlipidemia. -Lipitor 10 mg QOD. 4.Morbid obesity. -Weight loss recommended. 5.Schizophrenia. -Resume home medications including Haldol, Risperdal and Prozac. 6. DVT prophylaxis. -Lovenox 40 mg s/c daily. Ildefonso Hart MD * Freddie Velázquez MD - 02/28/2015 12:44 PM EST Admit Date: 02/27/2015 Renan Goncalves is a(n)69 y.o. male Subjective: Patient seen and examined. Pertinent Data and Labs Reviewed. Events for the past 24 hrs noted. Diuresed well, admitted from office yestreday for acute on chronic decompensated cor pulmonale and rightsided heart failure. Objective: Intake/Output Summary (Last 24 hours) at 02/28/15 1246 Last data filed at 02/28/15 1025 Gross per 24 hour Intake 480 ml Output 8650 ml Net -8170 ml Wt Readings from Last 3 Encounters: 02/28/15 289 lb 6 oz (131.26 kg) 02/27/15 314 lb (142.429 kg) 05/29/14 262 lb (118.842 kg) Telemetry: NSR Current Medications Reviewed Physical Exam: Vital Signs - [id number] Patient Vitals for the past 6 hrs: BP Temp Temp src Pulse SpO2 02/28/15 0929 154/60 mmHg 98.1 ??F (36.7 ??C) Oral 80 94 % NECK JVP normal CHEST/LUNGS:B/L clear HEART:Nl S1 and S2 Soft pansystolic Murmur Abdomen: soft, NT Ext: 3+ edema Neuro Intact no focal deficits. LABS: No results found for: TROPONINI Lab Results Component Value Date WBC 6.5 02/27/2015 HGB 11.3* 02/27/2015 HCT 35.0* 02/27/2015 PLT 183 02/27/2015 NA 141 02/28/2015 K 3.3* 02/28/2015 CREATININE 1.10 02/28/2015 BUN 12 02/28/2015 GLU 107* 02/28/2015 DIAGNOSTICS: IMPRESSION: Acute on chronic decompensated corpulmonale Acute on chronic decompensated diastolic Lv dysfunction. Obesity ODIN Hypertension. PLAN: Continue to diuresis as tolerated Has Grade -2 diastolic LV dysfunction. Preserved LV function. Continue beta blockers, diovan and cardura. Increase activity. Freddie Velázquez MD 02/28/2015 12:46 PM * Bradly Benavidez RPH - 02/27/2015 6:05 PM EST S: Renan Goncalves is a(n) 69 y.o. male. Allergies: Review of patient's allergies indicates no known allergies. Pharmacy adjusting enoxaparin dosing for BMI per protocol. O: Most Recent Labs: Recent Labs 02/27/15 1420 WBC 6.5 HGB 11.3* HCT 35.0* PLT 183 BUN 14 CREATININE 1.10 Estimated Creatinine Clearance: 70.5 mL/min (based on Cr of 1.1). Weight: 300 lb (136.079 kg) Body mass index is 40.68 kg/(m^2). A/P: Physician orders and progress notes reviewed. Enoxaparin 40mg daily ordered. Will adjust to every 12 hours for BMI > 40 Bradly Benavidez RPH * Megan Luciano RN - 02/27/2015 4:53 PM EST 02/27/15 1647 ED Screening ED Screening Completed Initial screening complete, post-acute needs identified, assessment to follow Medical Record Reviewed Yes Who you interviewed In person interview with patient What brought the patient to the ED sent by insulation applicator Where did the patient come from? [facility] Issues related to prior living situation 02/27/15 ED CC Met with pt in the room .Pt lives at [facility], he is unsure if assisted or independent living. Pt states he walks some but is in wheelchair most of the time. Pt states they help him and provide his meals. Pt has a PCP, Dr Leong. Pt states [facility] takes care of his scripts. Pt states [facility] will transport him back to their facility. CC to follow for discharge. Activities of Daily Living Needs Assistance Mental Status Alert and oriented Issues with non-compliance No Anticipated post-acute care needs Home with OP Follow Up Potential barriers to discharge No Observation Information Provided to Patient/Family No Does patient meet high risk triggers? Exacerbation of chronic illness;Diagnosis of CHF/COPD/AMI/Pneumonia documented in this encounter H&P Notes * Ildefonso Hart MD - 02/27/2015 5:38 PM EST Images from the original note were not included. History and Physical Name: Renan Goncalves : 1945 AGE: 69 y.o. PCP: Kevin Leong Sr., MD Admitting Physician: Ildefonso Hart MD Date of Admit: 02/27/2015 Chief Complaint: History of Present Illness: This is a 69-year-old male with medical history is significant for hypertension, hyperlipidemia, CHF, and paranoid schizophrenia. He was brought to the emergency room from his insulation applicator office because of bilateral lower extremity edema and abnormal weight gain. Patient told that he has been short of breath since the weather has been cold. He states that he typically stay in his chair because he cannot lay flat. It appears that his primary care doctor had been prescribing his Lasix but he wasnot getting any better so he went to the insulation applicator today for further evaluation. From there, hospitalization was recommended. He denies any chest pain, denies any cough of fever. Patient lives in a correction. Past Medical History Diagnosis Date ??? Hypertension ??? Paranoid schizophrenia (HCC) ??? High cholesterol ??? CHF (congestive heart failure) (HCC) History reviewed. No pertinent past surgical history. No Known Allergies History Social History ??? Marital Status: Single Spouse Name: N/A Number of Children: N/A ??? Years of Education: N/A Social History Main Topics ??? Smoking status: Never Smoker ??? Smokeless tobacco: None ??? Alcohol Use: No ??? Drug Use: No ??? Sexual Activity: None Other Topics Concern ??? None Social History Narrative Family history reviewed. There's no family history pertinent to his current condition. Prescriptions prior to admission Medication Sig Dispense Refill Last Dose ??? haloperidol (HALDOL) 5 mg tablet Take 5 mg by mouth every 4 hours as needed for Agitation (every 4 hours as needed for agitation). Taking at Unknown time ??? amLODIPine (NORVASC) 10 mg tablet Take 10 mg by mouth daily. Taking at Unknown time ??? Aspirin 81 mg Take 81 mg by mouth daily. Taking at Unknown time ??? atenolol (TENORMIN) 50 mg tablet Take 50 mg by mouth daily. Taking at Unknown time ??? valsartan (DIOVAN) 320 mg tablet Take 320 mg by mouth daily. Taking at Unknown time ??? FLUoxetine (PROZAC) 40 mg capsule Take 40 mg by mouth 2 times daily. Taking at Unknown time ??? fUROsemide (LASIX) 40 mg tablet Take 40 mg by mouth daily. Taking at Unknown time ??? potassium chloride (MICRO-K) 10 mEq CR capsule Take 20 mEq by mouth 2 times daily. Taking at Unknown time ??? risperiDONE (RISPERDAL) 4 mg tablet Take 4 mg by mouth 2 times daily. Taking at Unknown time ??? simvastatin (ZOCOR) 10 mg Take 10 mg by mouth nightly. Taking at Unknown time ??? terazosin (HYTRIN) 2 mg capsule Take 2 mg by mouth nightly. Taking at Unknown time ??? acetaminophen Oral tablet Take 650 mg by mouth every 4 hours as needed for Pain (2 tabs for elevated temp/discomfort). Taking ??? guaiFENesin-dextromethorphan (ROBITUSSIN DM) 10-100 mg/5 mL syrup Take 10 mL by mouth every 4 hours as needed for Cough. Taking Review of Systems: The listed systems were reviewed and reveal the following in addition to any already discussed in the HPI: ?? Constitutional: No fever, chills. Has significant weight gain. ?? Eyes: No visual disturbance. ?? HENT: No headache, hearing loss, epistaxis, sore throat. ?? Respiratory: + breanna SOB, No cough, hemoptysis, or pleuritic chest pain. ?? Cardiovascular: No chest pain, PND or orthopnea, no palpitations. ?? Endocrine: No polyuria, polydypsia, or polyphagia. ?? GI: No abdominal pain, nausea, vomiting, diarrhea, melena or hematochezia. ?? : No dysuria, frequency, hesitancy, or hematuria ?? Musculoskeletal: No myalgias or muscle weakness. ?? Neurologic: No focal numbness or weakness. ?? Skin: +++ lower extremity edema. No jaundice, or skin discoloration. ?? Psychiatric: No homicidal or suicidal ideation. ?? Hematologic/Allergic: No history of blood clots, bleeding or easy bruising. OBJECTIVE: Physical Exam: Filed Vitals: 02/27/15 1645 BP: 154/51 Pulse: 66 Temp: Resp: 18 SpO2: 93% Weight: 300 lb (136.079 kg) Constitutional: No acute distress. Eyes: PERRL, conjunctiva normal. HENT: Atraumatic,mouth moist. Neck: normal range of motion, no tenderness, supple, no JVD. Respiratory: No respiratory distress, scattered crackles at the bases. No wheezing. Cardiovascular: Normal rate, normal rhythm, no murmurs, no gallops, no rubs. Abdomen: Soft, nondistended, non tender,no rebound. Bowel sounds are present. Musculoskeletal: 3+ edema of the lower extremity. No tenderness or deformities. Integument: Well hydrated. Chronic looking erythema of the lower extremities. No increased warmth. Lymphatic: No lymphadenopathy noted. Neurologic: Alert, awake. No gross focal deficits noted. Labs: CBC: Lab Results Component Value Date WBC 6.5 02/27/2015 RBC 3.65* 02/27/2015 HGB 11.3* 02/27/2015 HCT 35.0* 02/27/2015 MCV 95.7 02/27/2015 MCHC 32.2 02/27/2015 RDW 14.6 02/27/2015 MPV 8.1 02/27/2015 BMP: Lab Results Component Value Date NA 141 02/27/2015 K 3.8 02/27/2015 CL 101 02/27/2015 CO2 26 02/27/2015 BUN 14 02/27/2015 LABALBU 4.0 02/27/2015 CREATININE 1.10 02/27/2015 CALCIUM 8.8 02/27/2015 GLU 115* 02/27/2015 Hepatic: Lab Results Component Value Date ALKPHOS 77 02/27/2015 ALT 14 02/27/2015 AST 19 02/27/2015 PROT 7.4 02/27/2015 LABBILI 0.8 02/27/2015 BILIDIR <0.2 02/27/2015 LABALBU 4.0 02/27/2015 No results found for: AMYLASE, LIPASE U/A: Lab Results Component Value Date UAPROTEIN Negative 02/27/2015 BLOODU Small* 02/27/2015 NITRITE Negative 02/27/2015 LEUKOCYTESUR Negative 02/27/2015 RBCUA 0-2 02/27/2015 Coagulation: No results found for: INR, APTT Cardiac markers: No results found for: TROPONINT Radiology: Xr Chest Ap Portable 02/27/2015 SINGLE VIEW OF THE CHEST: 02/27/2015 2:55 PM HISTORY: CHF FINDINGS: The heart is enlarged. Mild diffuse pulmonary edema.. Presumed atelectasis right lung base. The costophrenic angles are within normal limits. There is no pleural effusion. No pneumothorax. 02/27/2015 IMPRESSION: Cardiomegaly with mild diffuse pulmonary edema. Presumed atelectasis right lung base. No other acute findings.. EKG: Sinus rhythm at 70 BPM. 1st degree AV block. No ischemic changes. Assessment/Plan: 1.Bilateral lower extremity edema/SOB . Likely Acute right-sided CHF associated with diastolic dysfunction. -Diurese with Lasix 40 mg BID -Echocardiogram. -Cardiology will be consulted. -Resume Diovan and Atenolol 2.Essential Hypertension. -Resume home BP meds including atenolol, Diovan, Cardura. 3. Hyperlipidemia. -Lipitor 10 mg QOD. 4.Morbid obesity. -Weight loss recommended. 5.Schizophrenia. -Resume home medications including Haldol, Risperdal and Prozac. 6. DVT prophylaxis. -Lovenox 40 mg s/c daily. Ildefonso Hart MD 02/27/2015 5:38 PM documented in this encounter ED Notes * April Whitten ARNP - 02/27/2015 2:27 PM EST Chief Complaint Patient presents with ??? Congestive Heart Failure patient was seen by Dr. Pendleton and told to come to ED for admission to hospital- patient has been short of breath and has large amount of BLE edema HPI Comments: This is a 69-year-old male presents for evaluation of bilateral lower extremity swelling and weight gain. There is a nurse at his bedside from his correction. She states that he has had at least a 60 pound weight gain over the past month. He states he has had intermittent shortness of breath and chest pain. Presently denies either of those complaints. He states that his primary care doctor had been prescribing his Lasix but he was not getting any better so he went to the insulation applicator today for further evaluation and treatment (Dr Yeh). He states insulation applicator contacted the emergency room and advised him to come here for further evaluation and treatment along with admission. He states he does have some associated pain in his legs and he believes this is secondary to the swelling. His past medical history is significant for hypertension, hyperlipidemia, CHF, and paranoid schizophrenia. He has never been a smoker. He denies any other coronary artery disease history. The history is provided by the patient, medical records and the correction. No Known Allergies Home Medications: Prior to Admission medications Medication Sig Start Date End Date Taking? Authorizing Provider acetaminophen Oral tablet Take 650 mg by mouth every 4 hours as needed for Pain (2 tabs for elevated temp/discomfort). Provider, Historical haloperidol (HALDOL) 5 mg tablet Take 5 mg by mouth every 4 hours as needed for Agitation (every 4 hours as needed for agitation). Provider, Historical guaiFENesin-dextromethorphan (ROBITUSSIN DM) 10-100 mg/5 mL syrup Take 10 mL by mouth every 4 hoursas needed for Cough. Provider, Historical amLODIPine (NORVASC) 10 mg tablet Take 10 mg by mouth daily. Provider, Historical Aspirin 81 mg Take 81 mg by mouth daily. Provider, Historical atenolol (TENORMIN) 50 mg tablet Take 50 mg by mouth daily. Provider, Historical valsartan (DIOVAN) 320 mg tablet Take 320 mg by mouth daily. Provider, Historical FLUoxetine (PROZAC) 40 mg capsule Take 40 mg by mouth 2 times daily. Provider, Historical fUROsemide (LASIX) 40 mg tablet Take 40 mg by mouth daily. Provider, Historical potassium chloride (MICRO-K) 10 mEq CR capsule Take 20 mEq by mouth 2 times daily. Provider, Historical risperiDONE (RISPERDAL) 4 mg tablet Take 4 mg by mouth 2 times daily. Provider, Historical simvastatin (ZOCOR) 10 mg Take 10 mg by mouth nightly. Provider, Historical terazosin (HYTRIN) 2 mg capsule Take 2 mg by mouth nightly. Provider, Historical Past Medical History: Past Medical History Diagnosis Date ??? Hypertension ??? Paranoid schizophrenia (HCC) ??? High cholesterol ??? CHF (congestive heart failure) (HCC) Social History: reports that he has never smoked. He does not have any smokeless tobacco history onfile. He reports that he does not drink alcohol or use illicit drugs. Family History: No family history on file. Surgical History: History reviewed. No pertinent past surgical history. Review of Systems Constitutional: Positive for fatigue. Negative for fever and chills. HENT: Negative. Eyes: Negative. Respiratory: Positive for shortness of breath. Negative for cough and wheezing. Cardiovascular: Positive for chest pain and leg swelling. Negative for palpitations. Gastrointestinal: Negative for nausea, vomiting, abdominal pain and diarrhea. Genitourinary: Negative for dysuria and frequency. Musculoskeletal: Negative. Skin: Negative for rash. Neurological: Positive for weakness (generalized). Psychiatric/Behavioral: Negative. All other systems reviewed and are negative. Blood pressure 145/65, pulse 70, temperature 98.2 ??F (36.8 ??C), temperature source Oral, resp. rate 16, height 6' (1.829 m), weight 300 lb (136.079 kg), SpO2 93 %. Physical Exam Constitutional: He is oriented to person, place, and time. He appears well- developed and well-nourished. No distress. HENT: Head: Normocephalic and atraumatic. Mouth/Throat: Oropharynx is clear and moist. Eyes: Conjunctivae are normal. Neck: Normal range of motion. Neck supple. Cardiovascular: Normal rate and normal heart sounds. No murmur heard. Pulmonary/Chest: Effort normal and breath sounds normal. No respiratory distress. He has no wheezes. He exhibits no tenderness. Abdominal: Soft. Bowel sounds are normal. He exhibits distension. He exhibits no fluid wave and no ascites. There is no tenderness. There is no guarding and no CVA tenderness. Musculoskeletal: He exhibits edema (from the upper thighs to toes bilaterally) and tenderness. Lymphadenopathy: He has no cervical adenopathy. Neurological: He is alert and oriented to person, place, and time. Skin: Skin is warm and dry. No rash noted. Psychiatric: He has a normal mood and affect. Nursing note and vitals reviewed. Procedures Radiology/EKG/Labs: Results for orders placed or performed during the hospital encounter of 02/27/15 XR CHEST AP PORTABLE Narrative SINGLE VIEW OF THE CHEST: 02/27/2015 2:55 PM HISTORY: CHF FINDINGS: The heart is enlarged. Mild diffuse pulmonary edema.. Presumed atelectasis right lung base. The costophrenic angles are within normal limits. There is no pleural effusion. No pneumothorax. Impression IMPRESSION: Cardiomegaly with mild diffuse pulmonary edema. Presumed atelectasis right lung base. No other acute findings.. BASIC METABOLIC PANEL Result Value Ref Range Sodium 141 136 - 145 mmol/L Potassium 3.8 3.5 - 5.0 mmol/L Chloride 101 98 - 107 mmol/L Total CO2 26 22 - 29 mmol/L Anion Gap 14 7 - 16 mmol/L Calcium 8.8 8.8 - 10.2 mg/dL Glucose Lvl 115 (H) 82 - 100 mg/dL BUN 14 8 - 23 mg/dL Creatinine 1.10 0.67 - 1.30 mg/dL GFR Afr Am >60 GFR Non Afr Am >60 CBC WITH AUTO DIFF Result Value Ref Range WBC 6.5 4.0 - 11.0 x10(3)/mcL RBC 3.65 (L) 4.30 - 5.81 x10(6)/mcL Hgb 11.3 (L) 13.5 - 17.1 gm/dL Hct 35.0 (L) 38.9 - 51.6 % MCV 95.7 82.5 - 99.8 fL MCH 30.8 27.0 - 34.3 pg MCHC 32.2 32.1 - 35.3 gm/dL RDW 14.6 11.5 - 15.0 % Platelet 183 144 - 423 x10(3)/mcL MPV 8.1 6.8 - 10.8 fL TROPONIN-T Result Value Ref Range Troponin-T <0.01 <=0.02 ng/mL TROPONIN-T Result Value Ref Range Troponin-T <0.01 <=0.02 ng/mL NT PROBNP Result Value Ref Range NT Pro-BNP 1041 (H) <=319 pg/mL HEPATIC FUNCTION PANEL Result Value Ref Range Total Protein 7.4 6.4 - 8.3 gm/dL Albumin 4.0 3.2 - 4.6 gm/dL Bili Direct <0.2 0.0 - 0.3 mg/dL Bili Total 0.8 0.1 - 1.4 mg/dL AST 19 <=40 IU/L ALT 14 <=41 IU/L Alk Phos 77 40 - 129 IU/L DIFFERENTIAL Result Value Ref Range Neut Percent 74.0 % Lymph Percent 11.7 % [place] Percent 8.2 % Eos Percent 4.4 % Baso Percent 1.7 % Neut# 4.8 1.8 - 7.7 x10(3)/mcL Lymph# 0.8 0.6 - 4.8 x10(3)/mcL [place]# 0.5 0.0 - 1.3 x10(3)/mcL Eos# 0.3 0.0 - 0.5 x10(3)/mcL Baso# 0.1 0.0 - 0.2 x10(3)/mcL URINALYSIS Result Value Ref Range UA Color Yellow UA Appear Clear Clear UA Glucose Negative Negative UA Ketones Negative Negative UA Blood Small (A) Negative UA pH 6.0 5.0 - 8.0 UA Protein Negative Negative UA Urobilinogen 0.2 E.U./dL <=1 E.U./dL UA Nitrite Negative Negative UA Leuk Est Negative Negative UA Spec Grav 1.015 1.001 - 1.035 UA RBC 0-2 0 - 3 /HPF URINALYSIS POC Result Value Ref Range UA Color POC Yellow UA Appear POC Clear Clear UA Gluc POC Negative Negative UA Ketones POC Negative Negative UA Blood POC Small (A) Negative UA pH POC 6.0 5.0 - 8.0 UA Protein POC Negative Negative UA Urobilinogen POC 0.2 mg/dl <=1 mg/dl UA Nitrite POC Negative Negative UA Leuk Est POC Negative Negative UA SG POC 1.015 1.001 - 1.035 EK EKG 12 LEAD Narrative NOTICE: Preliminary tracing available for review; Final Interpretation by physician to follow. Impression Stationary ECG Study [place] [facility] Interpretive Statements SINUS RHYTHM WITH FIRST DEGREE AV BLOCK WITH OCCASIONAL VENTRICULAR PREMATURE COMPLEXES EKG-sinus rhythm with first-degree AV block. Occasional PVC noted. Rate of 70. Normal axis. No acute changes compared to prior on 06/20/2013 ED Course: Appropriate laboratory and radiology studies reviewed This is a 69 year old male that presents for evaluation of persistent and worsening BLE swelling and weight gain. His CXR shows cardiomegaly with mild diffuse pulmonary edema. There is no evidence ofpneumonia. His BNP is elevated at 1041. His cardiac enzymes are negative. The Hwang catheter has been placed. He is given 80 mg of Lasix IV. I have spoken with the hospitalist, Dr. Valdez. The patientwill be admitted to the telemetry care unit for further evaluation and treatment. An inpatient echocardiogram is ordered. The cardiology consult has been placed. He has remained in stable condition emergency department. This patient is seen in conjunction with Dr. Collado ED Clinical Impression: Acute combined systolic and diastolic congestive heart failure (HCC) (primary encounter diagnosis) Condition at Discharge/Transfer from Department: Improved This chart was completed using voice recognition technology and may contain unintended errors April Whitten ARNP 02/27/15 8330 Cosigned by Hanny Collado MD at 03/02/2015 7:50 PM EST Associated attestation - Hanny Collado MD - 03/02/2015 7:50 PM EST I have reviewed the chief complaint and history of present illness and review of systems as well asthe past medical/social/family history sections for this patient. I have examined this patient, andparticipated in the care of this patient. I have reviewed the pertinent clinical information including physical exam, labs, radiographic studies and the plan. This patient was seen in coordination with PA/THERAPY TECH. This chart was completed using voice recognition technology and may contain unintended errors documented in this encounter Miscellaneous Notes * Plan of Care - Jaelyn Meneses RN - 03/07/2015 9:38 AM EST Problem: Cardiac Dysfunction - 73 Goal: Patient will have adequate blood volume through coronary vasculature maintained and cardiac pump effectiveness will be improved Outcome: Progressing No complaints of chest pain this shift Problem: Activity Intolerance - 67 Goal: Patient will regulate energy use to treat or prevent fatigue and optimize function Outcome: Progressing Pt working with PT and tolerating current activity order well Problem: Safety: Fall Risk Goal: Patient will remain free of falls and injury Outcome: Progressing Pt calls for assistance as needed, side rails up x 2, bed alarm in use, non skid foot wear on. No falls this shift * Plan of Care - Sloane Swartz RN - 03/06/2015 12:58 PM EST Problem: Safety: Fall Risk Goal: Patient will remain free of falls and injury Outcome: Progressing Pt. Continues with bed in lowest position. Bed rails x 2. Alarm on and working properly. Pt. Educated on use of call light, pt. Verbalizes understanding. Call light in reach. * Plan of Care - Jaelyn Meneses RN - 03/05/2015 6:13 PM EST Problem: Cardiac Dysfunction - 73 Goal: Patient will have adequate blood volume through coronary vasculature maintained and cardiac pump effectiveness will be improved Outcome: Progressing No complaints of chest pain this shift Problem: Activity Intolerance - 67 Goal: Patient will regulate energy use to treat or prevent fatigue and optimize function Outcome: Progressing Pt regulating activities to preserve energy Problem: Safety: Fall Risk Goal: Patient will remain free of falls and injury Outcome: Progressing Chair alarm on, non skid footwear on, pt calls for assistance as needed. No falls this shift * Plan of Care - Nat Streeter LPN - 03/05/2015 7:45 AM EST Problem: Cardiac Dysfunction - 73 Goal: Patient will have adequate blood volume through coronary vasculature maintained and cardiac pump effectiveness will be improved Outcome: Progressing Offers no c/o chest discomfort, monitor shows NSR w 1st degree AV block. Will cont to monitor. Problem: Activity Intolerance - 67 Goal: Patient will regulate energy use to treat or prevent fatigue and optimize function Outcome: Progressing Turning self side to side in lounger chair. Problem: Safety: Fall Risk Goal: Patient will remain free of falls and injury Outcome: Progressing Call light is in reach, chair alarm is active. * Plan of Care - Elodia Nguyen RN - 03/04/2015 10:32 PM EST Problem: Cardiac Dysfunction - 73 Goal: Patient will have adequate blood volume through coronary vasculature maintained and cardiac pump effectiveness will be improved Outcome: Progressing VSS, SR/SB on monitor. No complaints of chest pain. Problem: Safety: Fall Risk Goal: Patient will remain free of falls and injury Outcome: Progressing No falls this shift. Nonskid footwear provided, call light in reach. * Plan of Care - Sloane Swartz RN - 03/04/2015 10:47 AM EST Problem: Safety: Fall Risk Goal: Patient will remain free of falls and injury Outcome: Progressing Bed in lowest position. Bed rails x2. Alarm on and in place. Pt educated on use of call light. Calllight in reach. * Plan of Care - Binta Brantley RN - 03/03/2015 9:05 PM EST Problem: Safety: Fall Risk Goal: Patient will remain free of falls and injury Outcome: Progressing BA In use. Side rails up x 2. Education provided to call for assistance when needing out of bed, Call light within reach. * Plan of Care - Vangie Samaniego - 03/03/2015 4:18 PM EST Problem: Activity Intolerance - 67 Goal: Patient will regulate energy use to treat or prevent fatigue and optimize function Outcome: Progressing Pt. Tolerating transfer to bed/chair fairly well. Complaints of fatigue and dizziness at times Problem: Safety: Fall Risk Goal: Patient will remain free of falls and injury Outcome: Progressing Pt. Has transferred safely during shift with no falls or injury noted. Problem: Discharge/Coordination of Care/Transition of Care Goal: Patient will have a plan for disposition or transition to next level of care Outcome: Progressing Pt. To discharge to the [place] for rehab and then to return to [facility]. * Plan of Care - Neha Pearson RN - 03/02/2015 10:54 PM EST Problem: Cardiac Dysfunction - 73 Goal: Patient will have adequate blood volume through coronary vasculature maintained and cardiac pump effectiveness will be improved Outcome: Progressing VSS. Pt has orders for a daily weight. 2000mL fluid intake Problem: Safety: Fall Risk Goal: Patient will remain free of falls and injury Outcome: Progressing Bed in lowest position, side rails up x3, bed alarm on * Plan of Care - Dee Heath RN - 03/02/2015 4:41 PM EST Problem: Cardiac Dysfunction - 73 Goal: Patient will have adequate blood volume through coronary vasculature maintained and cardiac pump effectiveness will be improved Outcome: Progressing No complaints of chest pain this shift, continue to monitor I&O, daily wt Problem: Safety: Fall Risk Goal: Patient will remain free of falls and injury Outcome: Progressing Bed in lowest position, call light within reach, side rails up x 2, bed alarm * CDI Query - Ildefonso Hart MD - 03/02/2015 2:24 PM EST CDI Query Diagnosis Clarification Doctors:Dr Hart Please review the following clinical indicators: Patient admitted per h/p with acute chf, acute on chr diastolic chf and acute on chronic decompnesated cor pulmonale noted per 02/28 Cardiology, bnp- 1041, cxr- cardiomegaly with mild diffuse pulmonary edema, echo- ef- 60-65%, lasix 40 mg iv twice daily Based on your clinical judgment, can you provide a diagnosis (e.g., Acute Cor Pulmonale-Present on Admission, Acute Cor Pulmonale- Not Present on Admission, other, or unable to determine) that represents the above listed clinical indicators? Please type an X in appropriate response: Agree & Will Document Diagnosis (x ) Disagree ( ) Unable to Determine ( ) Other ( ) TO RESPOND TO QUERY: *You MUST Be Logged In Under [facility] Adult [facility], [facility], or MD Pediatric/ 1) Click Edit 2) Type ???X?? into appropriate choice 3) Enter comments if applicable 4) Please DOCUMENT diagnosis in progress notes, d/c summary, or consult if appropriate Please do not on document diagnosis on query. Please do NOT copy and paste this query into the record. THANK YOU! CDI Specialist:Hillary Monk RN-CDI Phone:[phone] * Plan of Care - Lucy Hill RN - 03/01/2015 11:58 PM EST Problem: Activity Intolerance - 67 Goal: Patient will regulate energy use to treat or prevent fatigue and optimize function Outcome: Progressing Pt still becoming short of breath on exertion Problem: Safety: Fall Risk Goal: Patient will remain free of falls and injury Bed alarm on and call light in reach * Plan of Care - Kendra Pickering RN - 02/28/2015 9:47 PM EST Problem: Cardiac Dysfunction - 73 Goal: Patient will have adequate blood volume through coronary vasculature maintained and cardiac pump effectiveness will be improved Outcome: Progressing Denies Cp, continue to be SOB with exertion. Oxygen remains stable on 2L. Was told in report patient was drowsy throughout day, will continue to monitor. will call clerk MD contact to address low potassium from AM labs. Problem: Safety: Fall Risk Goal: Patient will remain free of falls and injury Outcome: Progressing Bed alarm on and in use. Education on use of call light for assistance reinforced. * Plan of Care - Lucy Palacio RN - 02/28/2015 12:52 AM EST Problem: Cardiac Dysfunction - 73 Goal: Patient will have adequate blood volume through coronary vasculature maintained and cardiac pump effectiveness will be improved Outcome: Progressing No complaints of chest pain. No EKG changes. VSS. Problem: Safety: Fall Risk Goal: Patient will remain free of falls and injury Outcome: Progressing Bed alarm on, bed in lowest position, call light within reach, oriented to environment documented in this encounter Plan of Treatment Scheduled Orders Name Type Priority Associated Diagnoses Orde r Schedule BASIC METABOLIC PANEL Lab Routine Rou mayank - Once for 1 Occurrences starting 03/02/2015 until 03/02/2015 documented as of this encounter Procedures Procedure Name Priority Date/Time Associated Diagnosis Comments SCANNED RHYTHM STRIPS 03/10/2015 8:49 AM EST BASIC METABOLIC PANEL Routine 03/07/2015 12:49 PM EST SCANNED RHYTHM STRIPS 03/07/2015 1:29 AM EST THYROID STIMULATING HORMONE Routine 03/06/2015 5:34 AM EST BASIC METABOLIC PANEL Early AM 03/06/2015 5:34 AM EST SCANNED RHYTHM STRIPS 03/06/2015 2:11 AM EST BASIC METABOLIC PANEL Early AM 03/05/2015 5:58 AM EST SCANNED RHYTHM STRIPS 03/05/2015 1:15 AM EST BASIC METABOLIC PANEL Early AM 03/04/2015 6:23 AM EST SCANNED RHYTHM STRIPS 03/04/2015 2:22 AM EST SCANNED RHYTHM STRIPS 03/03/2015 2:14 AM EST BASIC METABOLIC PANEL Early AM 03/02/2015 6:48 AM EST SCANNED RHYTHM STRIPS 03/02/2015 2:07 AM EST BASIC METABOLIC PANEL Early AM 03/01/2015 6:58 AM EST SCANNED RHYTHM STRIPS 03/01/2015 2:18 AM EST EC ECHOCARDIOGRAM COMPLETE W DOPPLER AND COLOR FLOW MAPPING Routine 02/28/2015 8:44 AM EST BASIC METABOLIC PANEL Early AM 02/28/2015 6:01 AM EST SCANNED RHYTHM STRIPS 02/28/2015 2:52 AM EST TROPONIN-T STAT 02/27/2015 4:15 PM EST URINALYSIS STAT 02/27/2015 3:06 PM EST URINALYSIS POC Routine 02/27/2015 3:04 PM EST XR CHEST AP PORTABLE CHITO 02/27/2015 2:55 PM EST SALINE LOCK IV Routine 02/27/2015 2:24 PM EST TROPONIN-T STAT 02/27/2015 2:20 PM EST DIFFERENTIAL STAT 02/27/2015 2:20 PM EST CBC WITH DIFF STAT 02/27/2015 2:20 PM EST NT PROBNP STAT 02/27/2015 2:20 PM EST HEPATIC FUNCTION PANEL STAT 5 2:20 PM EST BASIC METABOLIC PANEL STAT 02/27/2015 2:20 PM EST EK EKG 12 LEAD STAT 02/27/2015 2:01 PM EST documented in this encounter Results * SCANNED RHYTHM STRIPS (03/10/2015 8:49 AM EST) Anatomical Region Laterality Modality Other 03/10/2015 8:49 AM EST us Unknown Unknown IMG ECG ORDERABLES Final Result * (ABNORMAL) BASIC METABOLIC PANEL (03/07/2015 12:49 PM EST) Sodium 141 136 - 145 mmol/L [facility] Potassium 4.6 3.5 - 5.0 mmol/L [facility] Chloride 102 98 - 107 mmol/L [facility] Total CO2 27 22 - 29 mmol/L [facility] Anion Gap 12 7 - 16 mmol/L [facility] Calcium 9.2 8.8 - 10.2 mg/dL [facility] Glucose Lvl 106(H) 82 - 100 mg/dL [facility] BUN 31(H) 8 - 23 mg/dL [facility] Creatinine 1.11 0.67 - 1.30 mg/dL [facility] GFR Afr Am >60 [facility] GFR Non Afr Am >60 [facility] Blood specimen (specimen) UPPER LIMB STRUCTURE / Unknown 03/07/2015 12:49 PM EST 03/07/2015 1:03 PM EST Narrative [facility] - 03/07/2015 1:42 PM EST Specimen to be recollected due to hemolysis . ?? CCecil ??informed David at ?? 03/07/2015 12:28 . us Freddie Velázquez MD CHEMISTRY ORDERABLES Final Resu lt [facility] [address] [place] [address] * SCANNED RHYTHM STRIPS (03/07/2015 1:29 AM EST) Anatomical Region Laterality Modality Other 03/07/2015 1:29 AM EST Result [facility] [place] Unknown IMG ECG ORDERABLES Final Result * THYROID STIMULATING HORMONE (03/06/2015 5:34 AM EST) Pathologist [facility] TSH 1.900 0.270 - 4.200 mcIU/mL [facility] Blood specimen (specimen) UPPER LIMB STRUCTURE / Unknown 03/06/2015 5:34 AM EST 03/06/2015 4:25 PM EST Result [facility] [place] Freddie Velázquez MD CHEMISTRY ORDERABLES Final Resu lt [facility] [address] [place] [address] * (ABNORMAL) BASIC METABOLIC PANEL (03/06/2015 5:34 AM EST) [facility] Sodium 144 136 - 145 mmol/L [facility] Potassium 3.3(L) 3.5 - 5.0 mmol/L [facility] Chloride 100 98 - 107 mmol/L [facility] Total CO2 29 22 - 29 mmol/L [facility] Anion Gap 15 7 - 16 mmol/L [facility] Calcium 8.9 8.8 - 10.2 mg/dL [facility] Glucose Lvl 128(H) 82 - 100 mg/dL [facility] BUN 47(H) 8 - 23 mg/dL [facility] Creatinine 2.22(H) 0.67 - 1.30 mg/dL [facility] GFR Afr Am 36 [facility] GFR Non Afr Am 30 [facility] Blood specimen (specimen) UPPER LIMB STRUCTURE / Unknown 03/06/2015 5:34 AM EST 03/06/2015 6:44 AM EST Result [facility] [place] Ney Stevens MD CHEMISTRY ORDERABLES Edited Result - Final Performing Organization Address City/[facility]/ZIP Co de Phone Number [facility] [address] [place] [address] * SCANNED RHYTHM STRIPS (03/06/2015 2:11 AM EST) Anatomical Region Laterality Modality Other 03/06/2015 2:11 AM EST Unknown Unknown IMG ECG ORDERABLES Final Result * (ABNORMAL) BASIC METABOLIC PANEL (03/05/2015 5:58 AM EST) Sodium 148(H) 136 - 145 mmol/L [facility] Potassium 3.5 3.5 - 5.0 mmol/L [facility] Chloride 101 98 - 107 mmol/L [facility] Total CO2 33(H) 22 - 29 mmol/L [facility] Anion Gap 14 7 - 16 mmol/L [facility] Calcium 8.4(L) 8.8 - 10.2 mg/dL [facility] Glucose Lvl 130(H) 82 - 100 mg/dL [facility] BUN 27(H) 8 - 23 mg/dL [facility] Creatinine 1.40(H) 0.67 - 1.30 mg/dL [facility] GFR Afr Am >60 [facility] GFR Non Afr Am 50 [facility] Blood specimen (specimen) UPPER LIMB STRUCTURE / Unknown 03/05/2015 5:58 AM EST 03/05/2015 6:59 AM EST Ney Stevens MD CHEMISTRY ORDERABLES Edited Result - Final Performing Organization Address [facility]/ZIP Co de Phone Number [facility] [address] [place] [address] * SCANNED RHYTHM STRIPS (03/05/2015 1:15 AM EST) Anatomical Region Laterality Modality Other 03/05/2015 1:15 AM EST Unknown Unknown IMG ECG ORDERABLES Final Result * (ABNORMAL) BASIC METABOLIC PANEL (03/04/2015 6:23 AM EST) Sodium 143 136 - 145 mmol/L [facility] Potassium 3.3(L) 3.5 - 5.0 mmol/L [facility] Chloride 98 98 - 107 mmol/L [facility] Total CO2 31(H) 22 - 29 mmol/L [facility] Anion Gap 14 7 - 16 mmol/L [facility] Calcium 9.1 8.8 - 10.2 mg/dL [facility] Glucose Lvl 107(H) 82 - 100 mg/dL [facility] BUN 20 8 - 23 mg/dL [facility] Creatinine 1.26 0.67 - 1.30 mg/dL [facility] GFR Afr Am >60 [facility] GFR Non Afr Am 57 [facility] Blood specimen (specimen) UPPER LIMB STRUCTURE / Unknown 03/04/2015 6:23 AM EST 03/04/2015 6:39 AM EST Result [facility] [place] Ney Stevens MD CHEMISTRY ORDERABLES Edited Result - Final [facility] [address] [place] [address] * SCANNED RHYTHM STRIPS (03/04/2015 2:22 AM EST) Anatomical Region Laterality Modality Other 03/04/2015 2:22 AM EST Unknown Unknown IMG ECG ORDERABLES Final Result * SCANNED RHYTHM STRIPS (03/03/2015 2:14 AM EST) Anatomical Region Laterality Modality Other 03/03/2015 2:14 AM EST Unknown Unknown IMG ECG ORDERABLES Final Result * (ABNORMAL) BASIC METABOLIC PANEL (03/02/2015 6:48 AM EST) [facility] Sodium 143 136 - 145 mmol/L [facility] Potassium 3.5 3.5 - 5.0 mmol/L [facility] Chloride 103 98 - 107 mmol/L [facility] Total CO2 31(H) 22 - 29 mmol/L [facility] Anion Gap 9 7 - 16 mmol/L [facility] Calcium 8.6(L) 8.8 - 10.2 mg/dL [facility] Glucose Lvl 103(H) 82 - 100 mg/dL [facility] BUN 15 8 - 23 mg/dL [facility] Creatinine 1.08 0.67 - 1.30 mg/dL [facility] GFR Afr Am >60 [facility] GFR Non Afr Am >60 [facility] Blood specimen (specimen) UPPER LIMB STRUCTURE / Unknown 03/02/2015 6:48 AM EST 03/02/2015 7:10 AM EST Ildefonso Hart MD CHEMISTRY ORDERABLES Edited Resu lt - Final [address] [address] * SCANNED RHYTHM STRIPS (03/02/2015 2:07 AM EST) Anatomical Region Laterality Modality Other 03/02/2015 2:07 AM EST us Unknown Unknown IMG ECG ORDERABLES Final Result * (ABNORMAL) BASIC METABOLIC PANEL (03/01/2015 6:58 AM EST) [facility] Sodium 146(H) 136 - 145 mmol/L [facility] Potassium 3.8 3.5 - 5.0 mmol/L [facility] Chloride 105 98 - 107 mmol/L [facility] Total CO2 27 22 - 29 mmol/L [facility] Anion Gap 14 7 - 16 mmol/L [facility] Calcium 8.3(L) 8.8 - 10.2 mg/dL [facility] Glucose Lvl 153(H) 82 - 100 mg/dL [facility] BUN 15 8 - 23 mg/dL [facility] Creatinine 1.37(H) 0.67 - 1.30 mg/dL [facility] GFR Afr Am >60 [facility] GFR Non Afr Am 52 [facility] Blood specimen (specimen) UPPER LIMB STRUCTURE / Unknown 03/01/2015 6:58 AM EST 03/01/2015 7:14 AM EST Ildefonso Hart MD CHEMISTRY ORDERABLES Edited Resu lt - Final [facility] [address], [place] [id number] * SCANNED RHYTHM STRIPS (03/01/2015 2:18 AM EST) Anatomical Region Laterality Modality Other 03/01/2015 2:18 AM EST us Unknown Unknown IMG ECG ORDERABLES Final Result * EC ECHOCARDIOGRAM COMPLETE W DOPPLER AND COLOR FLOW MAPPING (02/28/2015 8:44 AM EST) Ejection Fraction 60-65 % [place] Anatomical Region Laterality Modality Electrocardiogra phy 02/28/2015 7:42 AM EST Impressions 02/28/2015 12:16 PM EST ??CONCLUSIONS ??This is a technically difficult and limited exam, due to the patient being supine throughout. ??Left ventricular ejection fraction is in the normal range. ??No obvious regional wall motion abnormalities. ?? pseudonormal filling pattern of the left ventricle (stage 2 diastolic dysfunction). ??Normal right ventricular global systolic function. ??No hemodynamically significant Valve ds ?? Chelsea Velázquez M.D. Narrative Procedure Note Freddie Velázquez MD - 02/28/2015 IMPRESSION CONCLUSIONS This is a technically difficult and limited exam, due to the patientbeing supine throughout. Left ventricular ejection fraction is in the normal range. No obvious regional wall motion abnormalities. pseudonormal filling pattern of the left ventricle (stage 2 diastolicdysfunction). Normal right ventricular global systolic function. No hemodynamically significant Valve ds Chelsea Velázquez M.D. Result [facility] [place] Ildefonso Hart MD IMG ECHO ORDERABLES Final Result * (ABNORMAL) BASIC METABOLIC PANEL (02/28/2015 6:01 AM EST) Pathologist [facility] Sodium 141 136 - 145 mmol/L [facility] Potassium 3.3(L) 3.5 - 5.0 mmol/L [facility] Chloride 100 98 - 107 mmol/L [facility] Total CO2 29 22 - 29 mmol/L [facility] Anion Gap 12 7 - 16 mmol/L [facility] Calcium 8.4(L) 8.8 - 10.2 mg/dL [facility] Glucose Lvl 107(H) 82 - 100 mg/dL [facility] BUN 12 8 - 23 mg/dL [facility] Creatinine 1.10 0.67 - 1.30 mg/dL [facility] GFR Afr Am >60 [facility] GFR Non Afr Am >60 [facility] Blood specimen (specimen) UPPER LIMB STRUCTURE / Unknown 02/28/2015 6:01 AM EST 02/28/2015 6:59 AM EST Result [facility] [place] Ildefonso Hart MD CHEMISTRY ORDERABLES Edited Resu lt - Final [facility] [address] [place] [address] * SCANNED RHYTHM STRIPS (02/28/2015 2:52 AM EST) Anatomical Region Laterality Modality Other 02/28/2015 2:52 AM EST Unknown Unknown IMG ECG ORDERABLES Final Result * TROPONIN-T (02/27/2015 4:15 PM EST) [facility] Troponin-T <0.01 <=0.02 ng/mL [facility] Comment: < 0.03 ?No detectable myocardial injury 0.03 - 0.10 ?? Possible myocardial injury ??> 0.10 ?Indicative of myocardial injury Blood specimen (specimen) 02/27/2015 4:15 PM EST 02/27/2015 4:22 PM EST Hanny Collado MD CHEMISTRY ORDERABLES Fi nal Result Performing Organization Address [facility] de Phone Number [address] [address] * (ABNORMAL) URINALYSIS (02/27/2015 3:06 PM EST) [facility] UA Color Yellow [facility] UA Appear Clear Clear [facility] UA Glucose Negative Negative [facility] UA Ketones Negative Negative [facility] UA Blood Small(A) Negative [facility] UA pH 6.0 5.0 - 8.0 [facility] Comment:Reference range ghazala d for random specimens only. UA Protein Negative Negative [facility] [facility] UA Urobilinogen 0.2 E.U./dL <=1 E.U./dL [facility] UA Nitrite Negative Negative [facility] UA Leuk Est Negative Negative [facility] UA Spec Grav 1.015 1.001 - 1.035 [facility] Comment:Reference range ghazala d for random specimens only. UA RBC 0-2 0 - 3 /HPF [facility] Urine specimen (specimen) URINE SPECIMEN COLLECTION, CLEAN CATCH / Unknown 02/27/2015 3:06 PM EST 02/27/2015 3:06 PM EST us Hanny Collado MD URINE ORDERABLES Final Result Performing Organization Address [facility] de Phone Number [address] [place] [address] * (ABNORMAL) URINALYSIS POC (02/27/2015 3:04 PM EST) UA Color POC Yellow [facility] UA Appear POC Clear Clear [facility] UA Gluc POC Negative Negative [facility]IN T [facility] UA Ketones POC Negative Negative [facility] P [facility] UA Blood POC Small(A) Negative [facility] UA pH POC 6.0 5.0 - 8.0 [facility] UA Protein POC Negative Negative SE P [facility] UA Urobilinogen POC 0.2 mg/dl <=1 mg/dl [facility] UA Nitrite POC Negative Negative [facility] UA Leuk Est POC Negative Negative [facility] UA SG POC 1.015 1.001 - 1.035 [facility] Urine specimen (specimen) 02/27/2015 3:04 PM EST 02/27/2015 3:04 PM EST Hanny Collado MD POINT OF CARE TEST GIO MORE Final Result [facility] [place] [address] * XR CHEST AP PORTABLE (02/27/2015 2:55 PM EST) Anatomical Region Laterality Modality Chest Radiographic Kelsey ging 02/27/2015 2:55 PM EST Impressions 02/27/2015 3:14 PM EST IMPRESSION: Cardiomegaly with mild diffuse pulmonary edema. Presumed atelectasis right lung base. No other acute findings.. Narrative 02/27/2015 3:14 PM EST SINGLE VIEW OF THE CHEST: 02/27/2015 2:55 PM HISTORY: CHF FINDINGS: The heart is enlarged. Mild diffuse pulmonary edema.. Presumed atelectasis right lung base. The costophrenic angles are within normal limits. There is no pleural effusion. ??No pneumothorax. ?? Procedure Note Matthew Isaac MD - 02/27/2015 SINGLE VIEW OF THE CHEST: 02/27/2015 2:55 PM HISTORY: CHF FINDINGS: The heart is enlarged. Mild diffuse pulmonary edema.. Presumed atelectasis right lung base. The costophrenic angles are within normallimits. There is no pleural effusion. No pneumothorax. IMPRESSION: Cardiomegaly with mild diffuse pulmonary edema. Presumedatelectasis right lung base. No other acute findings.. Hanny Collado MD IMG DIAGNOSTIC IMAGING ORDERABLES Final Result * DIFFERENTIAL (02/27/2015 2:20 PM EST) Pathologist [facility] Neut Percent 74.0 % [facility] Lymph Percent 11.7 % [facility] [place] Percent 8.2 % [facility] Eos Percent 4.4 % [facility] Baso Percent 1.7 % [facility] Neut# 4.8 1.8 - 7.7 x10(3)/mcL [facility] Lymph# 0.8 0.6 - 4.8 x10(3)/mcL [facility] [place]# 0.5 0.0 - 1.3 x10(3)/mcL [facility] Eos# 0.3 0.0 - 0.5 x10(3)/mcL [facility] Baso# 0.1 0.0 - 0.2 x10(3)/mcL [facility] Blood specimen (specimen) 02/27/2015 2:20 PM EST 02/27/2015 2:46 PM EST Hanny Collado MD HEMATOLOGY ORDERABLES F inal Result [facility] [address] [place] [address] * HEPATIC FUNCTION PANEL (02/27/2015 2:20 PM EST) Pathologist [facility] Total Protein 7.4 6.4 - 8.3 gm/dL [facility] Albumin 4.0 3.2 - 4.6 gm/dL [facility] Bili Direct <0.2 0.0 - 0.3 mg/dL [facility] Bili Total 0.8 0.1 - 1.4 mg/dL [facility] AST 19 <=40 IU/L [facility] ALT 14 <=41 IU/L [facility] Alk Phos 77 40 - 129 IU/L [facility] Blood specimen (specimen) UPPER LIMB STRUCTURE / Unknown 02/27/2015 2:20 PM EST 02/27/2015 2:46 PM EST Hanny Collado MD CHEMISTRY ORDERABLES [facility] Result Performing Organization Address [facility] Phone Number [address] [address] * (ABNORMAL) NT PROBNP (02/27/2015 2:20 PM EST) NT Pro-BNP 1,041(H) <=319 pg/mL [facility] Comment: An NT pro-BNP level less than 300 pg/mL in any patient, regardless of age, Effectively rules out acute CHF with a 99% negative predictive value. Blood specimen (specimen) UPPER LIMB STRUCTURE / Unknown 02/27/2015 2:20 PM EST 02/27/2015 2:46 PM EST Hanny Collado MD CHEMISTRY ORDERABLES nal Result Performing Organization Address [facility] de Phone Number [facility] [address] [place] [address] * TROPONIN-T (02/27/2015 2:20 PM EST) Troponin-T <0.01 <=0.02 ng/mL [facility] Comment: < 0.03 ?No detectable myocardial injury 0.03 - 0.10 ?? Possible myocardial injury ??> 0.10 ?Indicative of myocardial injury Blood specimen (specimen) 02/27/2015 2:20 PM EST 02/27/2015 2:46 PM EST Hanny Collado MD CHEMISTRY ORDERABLES Fi nal Result Performing Organization Address [facility] de Phone Number [facility] [address] [place] [address] * (ABNORMAL) CBC WITH AUTO DIFF (02/27/2015 2:20 PM EST) WBC 6.5 4.0 - 11.0 x10(3)/mcL [facility] RBC 3.65(L) 4.30 - 5.81 x10(6)/mcL [facility] Hgb 11.3(L) 13.5 - 17.1 gm/dL [facility] Hct 35.0(L) 38.9 - 51.6 % [facility] MCV 95.7 82.5 - 99.8 fL [facility] MCH 30.8 27.0 - 34.3 pg [facility] MCHC 32.2 32.1 - 35.3 gm/dL [facility] RDW 14.6 11.5 - 15.0 % [facility] Platelet 183 144 - 423 x10(3)/mcL [facility] MPV 8.1 6.8 - 10.8 fL [facility] Blood specimen (specimen) UPPER LIMB STRUCTURE / Unknown 02/27/2015 2:20 PM EST 02/27/2015 2:46 PM EST Hanny Collado MD HEMATOLOGY ORDERABLES F inal Result Performing Organization Address [facility] Co de Phone Number [facility] [address] [place] [address] * (ABNORMAL) BASIC METABOLIC PANEL (02/27/2015 2:20 PM EST) Sodium 141 136 - 145 mmol/L [facility] Potassium 3.8 3.5 - 5.0 mmol/L [facility] Chloride 101 98 - 107 mmol/L [facility] Total CO2 26 22 - 29 mmol/L [facility] Anion Gap 14 7 - 16 mmol/L [facility] Calcium 8.8 8.8 - 10.2 mg/dL [facility] Glucose Lvl 115(H) 82 - 100 mg/dL [facility] BUN 14 8 - 23 mg/dL [facility] Creatinine 1.10 0.67 - 1.30 mg/dL [facility] GFR Afr Am >60 [facility] GFR Non Afr Am >60 [facility] Blood specimen (specimen) UPPER LIMB STRUCTURE / Unknown 02/27/2015 2:20 PM EST 02/27/2015 2:46 PM EST Hanny Collado MD CHEMISTRY ORDERABLES Ed ited Result - Final [facility] [address] [id number] * EK EKG 12 LEAD (02/27/2015 2:01 PM EST) Anatomical Region Laterality Modality Other 02/27/2015 2:01 PM EST Impressions 02/27/2015 8:10 PM EST ? [facility] Interpretive Statements ? SINUS RHYTHM WITH FIRST DEGREE AV BLOCK WITH OCCASIONAL VENTRICULAR PREMATURE COMPLEXES nondiagnostic changes ,nonspecific ??changes Electronically Signed On 02-27-2015 20:10:36 EST by Eduardo Ramos MD Narrative Procedure Note Eduardo Ramos MD - 02/27/2015 IMPRESS[address] ECG Study [facility] Interpretive Statements SINUS RHYTHM WITH FIRST DEGREE AV BLOCK WITH OCCASIONAL VENTRICULARPREMATURE COMPLEXES nondiagnostic changes ,nonspecific changes Electronically Signed On 02-27-2015 20:10:36 EST by Eduardo Ramos MD Hanny Collado MD IMG ECG ORDERABLES Leanna l Result documented in this encounter Visit Diagnoses Diagnosis Acute right-sided CHF (congestive heart failure) (HCC)- Primary Congestive heart failure, unspecified Acute combined systolic and diastolic congestive heart failure (HCC) Acute combined systolic and diastolic heart failure Morbid obesity (HCC) Morbid obesity Hypertension Unspecified essential hypertension Schizophrenia (HCC) Unspecified schizophrenia, unspecified condition Bilateral lower extremity edema Edema Morbid obesity due to excess calories (HCC) Essential hypertension Unspecified essential hypertension Paranoid schizophrenia (HCC) Paranoid schizophrenia, unspecified condition documented in this encounter Administered Medications Inactive Administered Medications - up to 1 most recent administrations Medication Order MAR Action Action Date Dose Rate Site aspirin chewable tablet 81 mg 81 mg, Oral, DAILY, First dose on Mon02/27/15 at 1745, Until Discontinued Given 03/07/2015 8:20 AM EST 81 mg atenolol (TENORMIN) tablet 50 mg 50 mg, Oral, DAILY, First dose on Mon02/27/15 at 1745, Until Discontinued Given 03/03/2015 9:55 AM EST 50 mg atenolol (TENORMIN) tablet 50 mg 50 mg, Oral, ONCE, 1 dose, On Tu03/03/15 at 0300 Given 03/03/2015 2:11 AM EST 50 mg atorvastatin (LIPITOR) tablet 10 mg 10 mg, Oral, EVERY OTHER NIGHT, First dose on Mon02/27/15 at 2100, Until Discontinued, Therapeutic interchange for simvastatin (Zocor) 10mg daily Given 03/05/2015 8:01 PM EST 10 mg carvedilol (COREG) tablet 25 mg 25 mg, Oral, 2 TIMES DAILY WITH MEALS, First dose on Mon03/03/15 at 1800, Until Discontinued Given 03/07/2015 8:20 AM EST 25 mg doxazosin (CARDURA) tablet 2 mg 2 mg, Oral, DAILY, First dose on Mon02/27/15 at 1745, Until Discontinued, Therapeutic Interchange for Terazosin (HYTRIN) 2mg cap Given 03/07/2015 8:20 AM EST 2 mg doxazosin (CARDURA) tablet 2 mg 2 mg, Oral, ONCE, 1 dose, On Mon03/07/15 at 1300 Given 03/07/2015 3:02 PM EST 2 mg enoxaparin (LOVENOX) injection 40 mg 40 mg, Subcutaneous, EVERY 12 HOURS SCHEDULED (2 times per day), First dose on Mon02/27/15 at 2100, Until Discontinued Bolus in Bag 03/07/2015 8:17 AM EST 40 mg FLUoxetine (PROzac) capsule 40 mg 40 mg, Oral, 2 TIMES DAILY, First dose on Mon02/27/15 at 2100, Until Discontinued Given 03/07/2015 8:20 AM EST 40 mg fUROsemide (LASix) 100 mg in sodium chloride 0.9 % 100 mL infusion 20 mg/hr (20 mL/hr), Intravenous, CONTINUOUS, Starting on Mon03/03/15 at 1530, Until Mon03/06/15 at 1257 New Bag 03/06/2015 12:10 PM EST 20 mg/hr 20 mL/hr fUROsemide (LASix) injection 40 mg 40 mg, Intravenous, TWICE DAILY DIURETIC, First dose on Mon02/27/15 at 1745, Until Discontinued, MAXIMUM ADMINISTRATION RATE = 40 mg/min Given 03/01/2015 9:28 AM EST 40 mg fUROsemide (LASix) injection 40 mg 40 mg, Intravenous, TWICE DAILY DIURETIC, First dose on Mon03/01/15 at 1700, Until Discontinued, MAXIMUM ADMINISTRATION RATE = 40 mg/min Given 03/02/2015 10:54 AM EST 40 mg fUROsemide (LASix) injection 80 mg 80 mg, Intravenous, ONCE, 1 dose, On Mon02/27/15 at 1430, MAXIMUM ADMINISTRATION RATE = 40 mg/min Given 02/27/2015 2:51 PM EST 80 mg fUROsemide (LASix) tablet 40 mg 40 mg, Oral, TWICE DAILY DIURETIC, First dose on Mon03/02/15 at 1730, Until Discontinued Given 03/03/2015 9:55 AM EST 40 mg miconazole (MICATIN) 2 % powder Topical, 2 TIMES DAILY, First dose on Mon02/27/15 at 2300, Until Discontinued, Application site: Wilma area; skin folds Given 03/07/2015 8:24 AM EST potassium chloride (K-DUR) tablet 40 mEq 40 mEq, Oral, ONCE, 1 dose, On 02/28/15 at 1945 Given 02/28/2015 8:57 PM EST 40 mEq potassium chloride (K-DUR) tablet 40 mEq 40 mEq, Oral, ONCE, 1 dose, On Mon03/04/15 at 1145 Given 03/04/2015 11:32 AM EST 40 mEq potassium chloride (K-DUR) tablet 40 mEq 40 mEq, Oral, DAILY WITH MEAL, First dose on Mon03/04/15 at 1215, Until Discontinued Given 03/07/2015 8:20 AM EST 40 mEq risperiDONE (RisperDAL) tablet 4 mg 4 mg, Oral, 2 TIMES DAILY, First dose on Mon02/27/15 at 2100, Until Discontinued Given 03/07/2015 8:20 AM EST 4 mg sodium chloride 0.9% syringe Intravenous, EVERY 8 HOURS SCHEDULED (3 times per day), First dose on Mon02/27/15 at 1430, Until Discontinued, Flush with 3-5 mL saline for saline lock maintenance. Given 03/07/2015 1:16 PM EST 10 mL valsartan (DIOVAN) tablet 320 mg 320 mg, Oral, DAILY, First dose on Mon02/27/15 at 1745, Until Discontinued, +++ARB Medication+++ Given 03/07/2015 8:20 AM EST 320 mg documented in this encounter Discontinued Medications Medication Sig Discontinue Reason Start Date End Da te fUROsemide (LASIX) 40 mg tablet Take 40 mg by mouth daily. 03/07/2015 amLODIPine (NORVASC) 10 mg tablet Take 10 mg by mouth daily. Stop Taking at Discharge 03/07/2015 atenolol (TENORMIN) 50 mg tablet Take 50 mg by mouth daily. Stop Taking at Discharge 03/07/2015 documented as of this encounter Active and Recently Administered Medications Times are shown in EST. Scheduled Medication Order 03/05/2015 03/06/2015 03/07/2015 aspirin chewable tablet 81 mg (CANCELED) 81 mg, Oral, DAILY, First dose on Mon02/27/15 at 1745, Until Discontinued 0909 (Given - Provider: Lauren Merchant RN) 0801 (Given - Provider: Sloane Swartz, TAMICA) 0820 (Given - Provider: Jaelyn Meneses, RN) atorvastatin (LIPITOR) tablet 10 mg (CANCELED) 10 mg, Oral, EVERY OTHER NIGHT, First dose on Mon02/27/15 at 2100, Until Discontinued, Therapeutic interchange for simvastatin (Zocor) 10mg daily 2000 (Given - Provider: WILLIAM Peguero) carvedilol (COREG) tablet 25 mg 25 mg, Oral, 2 TIMES DAILY WITH MEALS, First dose on Mon03/03/15 at 1800, Until Discontinued 0910 (Given - Provider: Lauren Merchant RN)1807 (Given - Provider: Jaelyn Meneses, RN) 0759 (Given - Provider: Sloane Swartz, RN)1706 (Given - Provider: Sloane Swartz, RN) 0820 (Given - Provider: Jaelyn Meneses, RN) doxazosin (CARDURA) tablet 2 mg (CANCELED) 2 mg, Oral, DAILY, First dose on Mon02/27/15 at 1745, Until Discontinued, Therapeutic Interchange for Terazosin (HYTRIN) 2mg cap 0910 (Given - Provider: Lauren Merchant RN) 0801 (Given - Provider: Sloane Swartz, RN) 0820 (Given - Provider: Jaelyn Meneses, RN) doxazosin (CARDURA) tablet 2 mg (COMPLETED) 2 mg, Oral, ONCE, 1 dose, On Mon03/07/15 at 1300 1502 (Given - Provider: Jaelyn Meneses, RN) enoxaparin (LOVENOX) injection 40 mg (CANCELED) 40 mg, Subcutaneous, EVERY 12 HOURS SCHEDULED (2 times per day), First dose on Mon02/27/15 at 2100, Until Discontinued 09 (Given - Provider: Lauren Merchant RN)2000 (Given - Provider: WILLIAM Peguero) 800 (Given - Provider: Sloane Swartz RN)2033 (Given - Provider: WILLIAM Peguero) 0817 (Bolus in Bag - Provider: Jaelyn Meneses RN - Comment: platelets 183) FLUoxetine (PROzac) capsule 40 mg (CANCELED) 40 mg, Oral, 2 TIMES DAILY, First dose on Mon02/27/15 at 2100, Until Discontinued 908 (Given - Provider: Lauren Merchant RN)2000 (Given - Provider: WILLIAM Peguero) 800 (Given - Provider: Sloane Swartz RN)2033 (Given - Provider: WILLIAM Peguero) 08 (Given - Provider: Jaelyn Meneses RN) miconazole (MICATIN) 2 % powder (CANCELED) Topical, 2 TIMES DAILY, First dose on Mon02/27/15 at 2300, Until Discontinued, Application site: Wilma area; skin folds 1030 (Given - Provider: Lauren Merchant RN)2001 (Given - Provider: WILLIAM Peguero) 803 (Given - Provider: Sloane Swartz RN)2034 (Given - Provider: WILLIAM Peguero) 0824 (Given - Provider: Jaelyn Meneses RN) potassium chloride (K-DUR) tablet 40 mEq (CANCELED) 40 mEq, Oral, DAILY WITH MEAL, First dose on Mon03/04/15 at 1215, Until Discontinued 908 (Given - Provider: Lauren Merchant RN) 075 (Given - Provider: Sloane Swartz RN) 0820 (Given - Provider: Jaelyn Meneses RN) risperiDONE (RisperDAL) tablet 4 mg (CANCELED) 4 mg, Oral, 2 TIMES DAILY, First dose on Mon02/27/15 at 2100, Until Discontinued 09 (Given - Provider: Lauren Merchant RN)2000 (Given - Provider: WILLIAM Peguero) 800 (Given - Provider: Sloane Swartz RN)2033 (Given - Provider: WILLIAM Peguero) 0820 (Given - Provider: Jaelyn Meneses RN) sodium chloride 0.9% syringe (CANCELED) Intravenous, EVERY 8 HOURS SCHEDULED (3 times per day), First dose on Mon02/27/15 at 1430, Until Discontinued, Flush with 3-5 mL saline for saline lock maintenance. 0600 (Not Given - Provider: Nat Streeter LPN - Reason: IV Infusing)1400 (Not Given - Provider: Lauren Merchant RN - Reason: IV Infusing)2200 (Canceled Entry - Provider: WILLIAM Peguero) 0600 (Not Given - Provider: WILLIAM Peguero - Reason: IV Infusing)1306 (Given - Provider: Sloane Swartz RN)2038 (Given - Provider: WILLIAM Peguero)2200 (Canceled Entry - Provider: IWLLIAM Peguero) 0600 (Given - Provider: WILLIAM Peguero)1316 (Given - Provider: Jaelyn Meneses RN) valsartan (DIOVAN) tablet 320 mg (CANCELED) 320 mg, Oral, DAILY, First dose on Mon02/27/15 at 1745, Until Discontinued, +++ARB Medication+++ 0909 (Given - Provider: Lauren Merchant, TAMICA) 0801 (Given - Provider: Sloane Swartz RN) 0820 (Given - Provider: Jaelyn Meneses, RN) Continuous Medication Order 03/05/2015 03/06/2015 03/07/2015 fUROsemide (LASix) 100 mg in sodium chloride 0.9 % 100 mL infusion (CANCELED) 20 mg/hr (20 mL/hr), Intravenous, CONTINUOUS, Starting on Mon03/03/15 at 1530, Until Mon03/06/15 at 1257 0010 (New Bag - Provider: Nat Streeter LPN)0506 (New Bag - Provider: Nat Streeter LPN)1300 (New Bag - Provider: Jaelyn Meneses, RN - Comment: by other)1614 (New Bag - Provider: Jaelyn Meneses RN)2106 (New Bag - Provider: WILLIAM Peguero) 0249 (New Bag - Provider: WILLIAM Peguero)0657 (New Bag - Provider: WILLIAM Peguero)0712 (Rate/Dose Verify - Provider: Sloane Swartz RN)1210 (New Bag - Provider: Sloane Swartz RN)1305 (Stopped - Provider: Sloane Swartz RN) documented in this encounter Orders Medications Ordered That Cb ht Not Have Been Administered Count Last Ordered Date First Ordered Date doxazosin (CARDURA) tablet 4 mg 1 5 hydrALAZINE (APRESOLINE) injection 5 mg 1 1 05/07/2014 fUROsemide (LASix) tablet 40 mg 1 5 fUROsemide (LASix) injection 40 mg 1 2014 haloperidol (HALDOL) tablet 5 mg 1 02/28/20 15 sodium chloride 0.9% periphe ral IV line flush 20-50 mL 1 02/27/2015 sodium chloride 0.9% syringe 1 02/27/2015 Nursing Count Last Ordered Date First Orde red Date CONTINUE HWANG CATHETER 7 03/06/201502/09 MEDICARE INPATIENT CERTIFICATION 1 02/29/20 15 ADMISSION 1 02/27/2015 ED ENTER ADMISSION ORDER 1 02/27/2015 INSERT HWANG CATHETER 1 02/27/2015 PERFORM DIPSTICK URINALYSIS 1 02/27/2015 TELEMETRY MONITORING 1 02/27/2015 PT Count Last Ordered Date First Orde red Date IP CONSULT TO PHYSICAL THERAPY 1 03/01/2015 IV Count Last Ordered Date First Orde red Date SALINE LOCK IV 1 02/27/2015 Transfer Count Last Ordered Date First Orde red Date BED REQUEST 1 02/27/2015 documented in this encounter Care Teams French Translator Relationship Specialty Start Date End Date Kevin Leong Sr., MD [address] [place] [phone] PCP - General Deli Cutter Slicer 10/29/13 documented as of this encounter
--- OUTSIDE RECORDS SUMMARY | 2024-02-27 10:45 | XMS_ITS | Encounter Summary ---
Author Organization [place] [address] Care Team Providers Care Senior Analytical Chemist Name Role Phone Unavailable Primary Care Provider Unavailabl e Encounter Details Date Type Department Care Team (Late st Contact Info) Description 02/18/1992 8:09 AM EST - 02/18/1992 11:59 PM EST Hospital Encounter [facility] EPIC [...]
--- OUTSIDE RECORDS SUMMARY | 2024-02-27 10:45 | XMS_ITS | Encounter Summary ---
Author Organization [place] [address] Care Team Providers Care Stock Selector Name Role Phone Salo Segovia MD, [facility] Reason for Visit * Reason Comments Wound Check Left foot wound from hitting it against fence 1 week ago. Encounter Details Date Type Department Care Team (Late st Contact Info) Description 10/29/2013 12:54 PM EDT - 10/29/2013 4:32 PM EDT Emergency [place] [facility] [place] [address] [id number] Miguel Saldaña MD Laceration of left foot, initial encounter (Primary Dx) Discharge Disposition: Home [...] Sign Reading Time Taken Comments Blood Pressure 171/84 10/29/2013 12:59 PM EDT Pulse 69 10/29/2013 12:59 PM EDT Temperature 36.8 ??C (98.2 ??F) 10/29/2013 12:59 PM E DT Respiratory Rate 16 10/29/2013 12:59 PM EDT Oxygen Saturation 98% 10/29/2013 12:59 PM EDT Inhaled Oxygen Concentration - - Weight 111.1 kg (245 lb) 10/29/2013 12:59 PM EDT Height 180.3 cm (5' 11 ) 10/29/2013 12:59 PM EDT Body Mass Index 34.17 10/29/2013 12:59 PM EDT documented in this encounter Discharge Instructions * Discharge Instructions* Miguel Saldaña MD - 10/29/2013 3:16 PM EDT Images from the original note were not included. Wound care Keflex Return problems Recheck by family doctor in 5-7 days Laceration Care, Child A laceration is a cut or lesion that goes through all layers of the skin and into the tissue just beneath the skin. TREATMENT Some lacerations may not require closure. Some lacerations may not be able to be closed due to an increased risk of infection. It is important to see your child's caregiver as soon as possible after an injury to minimize the risk of infection and maximize the opportunity for successful closure. If closure is appropriate, pain medicines may be given, if needed. The wound will be cleaned to help prevent infection. Your child's caregiver will use stitches (sutures), tevin, wound glue (adhesive), or skin adhesive strips to repair the laceration. These tools bring the skin edges together to allow for faster healing and a better cosmetic outcome. However, all wounds will heal with a scar. Once the wound has healed, scarring can be minimized by covering the wound with sunscreen during the day for 1 full year. HOME CARE INSTRUCTIONS Laceration Care, Adult A laceration is a cut or lesion that goes through all layers of the skin and into the tissue just beneath the skin. TREATMENT Some lacerations may not require closure. Some lacerations may not be able to be closed due to an increased risk of infection. It is important to see your caregiver as soon as possible after an injury to minimize the risk of infection and maximize the opportunity for successful closure. If closure is appropriate, pain medicines may be given, if needed. The wound will be cleaned to help prevent infection. Your caregiver will use stitches (sutures), tevin, wound glue (adhesive), or skin adhesive strips to repair the laceration. These tools bring the skin edges together to allow for faster healing and a better cosmetic outcome. However, all wounds will heal with a scar. Once the wound has healed, scarring can be minimized by covering the wound with sunscreen during the day for 1 full year. HOME CARE INSTRUCTIONS For sutures or tevin: ?? Keep the wound clean and dry. ?? If you were given a bandage (dressing), you should change it at least once a day. Also, change the dressing if it becomes wet or dirty, or as directed by your caregiver. ?? Wash the wound with soap and water 2 times a day. Rinse the wound off with water to remove all soap. Pat the wound dry with a clean towel. ?? After cleaning, apply a thin layer of the antibiotic ointment as recommended by your caregiver. This will help prevent infection and keep the dressing from sticking. ?? You may shower as usual after the first 24 hours. Do not soak the wound in water until the sutures are removed. ?? Only take [id number] or prescription medicines for pain, discomfort, or fever as directed by your caregiver. ?? Get your sutures or tevin removed as directed by your caregiver. For skin adhesive strips: ?? Keep the wound clean and dry. ?? Do not get the skin adhesive strips wet. You may bathe carefully, using caution to keep the wound dry. ?? If the wound gets wet, pat it dry with a clean towel. ?? Skin adhesive strips will fall off on their own. You may trim the strips as the wound heals. Do not remove skin adhesive strips that are still stuck to the wound. They will fall off in time. For wound adhesive: ?? You may briefly wet your wound in the shower or bath. Do not soak or scrub the wound. Do not swim. Avoid periods of heavy perspiration until the skin adhesive has fallen off on its own. After showering or bathing, gently pat the wound dry with a clean towel. ?? Do not apply liquid medicine, cream medicine, or ointment medicine to your wound while the skin adhesive is in place. This may loosen the film before your wound is healed. ?? If a dressing is placed over the wound, be careful not to apply tape directly over the skin adhesive. This may cause the adhesive to be pulled off before the wound is healed. ?? Avoid prolonged exposure to sunlight or tanning lamps while the skin adhesive is in place. Exposure to ultraviolet light in the first year will darken the scar. ?? The skin adhesive will usually remain in place for 5 to 10 days, then naturally fall off the skin. Do not pick at the adhesive film. You may need a tetanus shot if: ?? You cannot remember when you had your last tetanus shot. ?? You have never had a tetanus shot. If you get a tetanus shot, your arm may swell, get red, and feel warm to the touch. This is common and not a problem. If you need a tetanus shot and you choose not to have one, there is a rare chanceof getting tetanus. Sickness from tetanus can be serious. SEEK MEDICAL CARE IF: ?? You have redness, swelling, or increasing pain in the wound. ?? You see a red line that goes away from the wound. ?? You have yellowish-white fluid (pus) coming from the wound. ?? You have a fever. ?? You notice a bad smell coming from the wound or dressing. ?? Your wound breaks open before or after sutures have been removed. ?? You notice something coming out of the wound such as wood or glass. ?? Your wound is on your hand or foot and you cannot move a finger or toe. SEEK IMMEDIATE MEDICAL CARE IF: ?? Your pain is not controlled with prescribed medicine. ?? You have severe swelling around the wound causing pain and numbness or a change in color in yourarm, hand, leg, or foot. ?? Your wound splits open and starts bleeding. ?? You have worsening numbness, weakness, or loss of function of any joint around or beyond the wound. ?? You develop painful lumps near the wound or on the skin anywhere on your body. MAKE SURE YOU: ?? Understand these instructions. ?? Will watch your condition. ?? Will get help right away if you are not doing well or get worse. Document Released: 03/27/2006 Document Revised: 06/18/2012 Document Reviewed: 09/20/2011 ExitCare?? Patient Information ??2013 [employer]. documented in this encounter Medications at Time [...] Take 50 mg by mouth daily. 5 cephALEXin (KEFLEX) 500 mg capsule Take 1 Cap by mouth 4 times daily for 20 doses. 20 Cap 0 10/29/2013 4 fUROsemide (LASIX) 40 mg tablet Take 40 [...] Date End Date cephALEXin (KEFLEX) 500 mg capsule Take 1 Cap by mouth 4 times daily for 20 doses. 20 Cap 0 10/29/2013 11/03/2013 documented in this encounter Discharge Disposition Disposition Code Departure Means Destination Home or Self [facility] documented in this encounter ED Notes * Unknown, Unknown - 10/30/2013 3:37 PM EDT * Hillary Lebron - 10/29/2013 4:09 PM EDT Pt foot cleaned and dressed. Pt given taxi voucher to return [facility]. Called [facility] to expect pt's arrival * Miguel Saldaña MD - 10/29/2013 1:14 PM EDT CHIEF COMPLAINT Chief Complaint Patient presents with ??? Wound Check Left foot wound from hitting it against fence 1 week ago. HPI Renan Goncalves is a 68 y.o. male who presents Complaining of a wound to his left foot on the second digit after hitting his foot against a fence a week ago. Patient is here to be checked denies fever or chills.. Past medical history hypertension and paranoid schizophrenia. Patient reports he does have a foot doctor.Patient is here for evaluation of the wound. Patient reports no significant pain REVIEW OF SYSTEMS See HPI for further details. Review of systems otherwise negative. PAST MEDICAL HISTORY Past Medical History Diagnosis Date ??? Hypertension ??? Paranoid schizophrenia ??? High cholesterol FAMILY HISTORY No family history on file. SOCIAL HISTORY History Social History ??? Marital Status: Unknown Spouse Name: N/A Number of Children: N/A ??? Years of Education: N/A Social History Main Topics ??? Smoking status: Never Smoker ??? Smokeless tobacco: None ??? Alcohol Use: No ??? Drug Use: No ??? Sexually Active: None Other Topics Concern ??? None Social History Narrative ??? None SURGICAL HISTORY No past surgical history on file. CURRENT MEDICATIONS Current Outpatient Rx Name Route Sig Dispense Refill ??? acetaminophen Oral tablet Oral Take 650 mg by mouth every 4 hours as needed for Pain (2 tabs for elevated temp/discomfort). ??? haloperidol (HALDOL) 5 mg tablet Oral Take 5 mg by mouth every 4 hours as needed for Agitation (every 4 hours as needed for agitation). ??? guaiFENesin-dextromethorphan (ROBITUSSIN DM) 10-100 mg/5 mL syrup Oral Take 10 mL by mouth every 4 hours as needed for Cough. ??? amLODIPine (NORVASC) 10 mg tablet Oral Take 10 mg by mouth daily. ??? Aspirin 81 mg Oral Take 81 mg by mouth daily. ??? atenolol (TENORMIN) 50 mg tablet Oral Take 50 mg by mouth daily. ??? valsartan (DIOVAN) 320 mg tablet Oral Take 320 mg by mouth daily. ??? FLUoxetine (PROZAC) 40 mg capsule Oral Take 40 mg by mouth 2 times daily. ??? fUROsemide (LASIX) 40 mg tablet Oral Take 40 mg by mouth daily. ??? potassium chloride (MICRO-K) 10 mEq CR capsule Oral Take 20 mEq by mouth 2 times daily. ??? risperiDONE (RISPERDAL) 4 mg tablet Oral Take 4 mg by mouth 2 times daily. ??? simvastatin (ZOCOR) 10 mg Oral Take 10 mg by mouth nightly. ??? terazosin (HYTRIN) 2 mg capsule Oral Take 2 mg by mouth nightly. ALLERGIES No Known Allergies PHYSICAL EXAM VITAL SIGNS: BP 171/84 Pulse 69 Temp(Src) 98.2 ??F (36.8 ??C) (Oral) Resp 16 Ht 5' 11 (1.803 m) Wt 245 lb (111.131 kg) BMI 34.19 kg/m2 SpO2 98% Constitutional: Well developed, Well nourished, No acute distress, Non-toxic appearance. Cardiovascular: Normal heart rate, Normal rhythm, No murmurs, No rubs, No gallops. Thorax & Lungs: Normal breath sounds, No respiratory distress, No wheezing, No chest tenderness. Abdomen: Bowel sounds normal, Soft, No tenderness, No masses, No pulsatile masses. Skin: Warm, Dry, No erythema, No rash. Extremities: Intact distal pulses, No cyanosis, No clubbing. Musculoskeletal: A skin tear laceration over the dorsal aspect of the left foot over the left second digit. The skin was lifted and removed since it was not viable. There is no warmth no erythema Neurologic: Alert & oriented x 3, Normal motor function, Normal sensory function, No focal deficits noted. RADIOLOGY/PROCEDURES Results for orders placed during the hospital encounter of 10/29/13 XR FOOT LEFT AP LATERAL AND OBLIQUE Narrative: Three views XR FOOT LEFT AP LATERAL AND OBLIQUE Oct 29, 2013 02:09:16 PM HISTORY: -WOUND CHECK. Hit second digit against a fence one week ago Compare: none Mild degenerative changes noted Small plantar calcaneal spur Impression: Impression: No acute fracture or osseous destruction. COURSE & MEDICAL DECISION MAKING Pertinent Labs & Imaging studies reviewed. (See chart for details) Patient is evaluated for his toe injury found to have a skin evulsion. Patient given a tetanus shot. X-rays are unremarkable. Also him on Keflex as well as wound care FINAL IMPRESSION 1. 1. Laceration of left foot, initial encounter Condition at discharge: good 2. 3. This chart was completed using voice recognition technology and may contain unintended errors Miguel Saldaña MD 10/29/13 1624 documented in this encounter Plan of Treatment Not on file documented as of this encounter Procedures Procedure Name Priority Date/Time Associated Diagnosis Comments XR FOOT LEFT AP LATERAL AND OBLIQUE CHITO 10/29/2013 2:08 PM EDT documented in this encounter Results * XR FOOT LEFT AP LATERAL AND OBLIQUE (10/29/2013 2:08 PM EDT) Anatomical Region Laterality Modality Foot Radiographic Kelsey ging 10/29/2013 1:17 PM EDT Impressions 10/29/2013 2:26 PM EDT Impression: No acute fracture or osseous destruction. Narrative 10/29/2013 2:26 PM EDT Three views XR FOOT LEFT AP LATERAL AND OBLIQUE ??Oct 29, 2013 02:09:16 PM HISTORY: ??-WOUND CHECK. ??Hit second digit against a fence one week ago Compare: none Mild degenerative changes noted Small plantar calcaneal spur Procedure Note Shalom Grant MD - 10/29/2013 Three views XR FOOT LEFT AP LATERAL AND OBLIQUE Oct 29, 2013 02:09:16PM HISTORY: -WOUND CHECK. Hit second digit against a fence one week ago Compare: none Mild degenerative changes noted Small plantar calcaneal spur Impression: No acute fracture or osseous destruction. Miguel Saldaña MD IMG DIAGNOSTIC IMAGING ORDER MONTY Final Result documented in this encounter Visit Diagnoses Diagnosis Laceration of left foot, initial encounter- Primary Open wound of foot except toe(s) alone, without mention of complication documented in this encounter Orders Nursing Count Last Ordered Date First Orde red Date CLEANSE WOUND 1 10/29/2013 documented in this encounter Care Teams Stock Selector Relationship Specialty Start Date End Date Kevin Leong Sr., MD [address] [place] [id number] PCP - General Chief Commercial Officer 10/29/13 documented as of this encounter
--- OUTSIDE RECORDS SUMMARY | 2024-02-27 10:45 | XMS_ITS | Encounter Summary ---
Author Organization [place] [address] Care Team Providers Care Drilling Manager Name Role Phone Unavailable Primary Care Provider Unavailabl e Encounter Details Date Type Department Care Team (Late st Contact Info) Description 02/25/1991 10:36 AM EST - 02/25/1991 11:59 PM EST Hospital Encounter [facility] EP[facility] [...]
--- OUTSIDE RECORDS SUMMARY | 2024-02-27 10:45 | XMS_ITS | Encounter Summary ---
Author Organization [place] [address] Care Team Providers Care Geotechnical Engineer Name Role Phone Unavailable Primary Care Provider Unavailabl e Encounter Details Date Type Department Care Team (Late st Contact Info) Description 11/09/1996 12:33 PM EDT - 11/09/1996 11:59 PM EDT Hospital Encounter [facility] Ariel Yancey Social History Tobacco Use [...]
--- OUTSIDE RECORDS SUMMARY | 2024-02-27 10:45 | XMS_ITS | Encounter Summary ---
Author Organization [facility] [place] [address] Care Team Providers Care Waiter And Cashier Name Role Phone Unavailable Primary Care Provider Unavailabl e Reason for Referral * EMG (Routine) - Closed Specialty Diagnoses / Procedures Referred By Roni cosme Referred To Contact Diagnoses Idiopathic peripheral neuropathy Procedures EMG Miller Bo MD [address] [place] [address] [place] [phone] Phone: tel: fax: Referral ID Status Reason Start Date Expiration Date Visits Re quested Visits Authorized [id number] Closed 07/23/2013 01/19/2014 1 1 Reason for Visit * 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 * Consultation (Routine) - Closed Specialty Diagnoses / Procedures Referred By Roni cosme Referred To Contact Neurology Procedures Falls Shalom Centeno MD [address] [place] [address] [place] [address] Phone: tel: fax: [facility] [address] [place] [address] Phone: tel: fax: Referral ID Status Reason Start Date Expiration Date Visits Re quested Visits Authorized [id number] Closed 07/15/2013 01/11/2014 1 1 Encounter Details Date Type Department Care Team (Late st Contact Info) Description 07/23/2013 1:20 PM EDT Office Visit SEP Neurology [facility] [address] [place] [address] Miller Bo MD [address] [place] [address] Idiopathic peripheral neuropathy (Primary Dx); Impaired glucose tolerance; Repeated falls Social History Tobacco Use Types Packs/Day Years [...] Sign Reading Time Taken Comments Blood Pressure 124/62 07/23/2013 1:18 PM EDT Pulse 76 07/23/2013 1:18 PM EDT Temperature 36.6 ??C (97.9 ??F) 07/23/2013 1:18 PM ED T Respiratory Rate 16 07/23/2013 1:18 PM EDT Oxygen Saturation - - Inhaled Oxygen Concentration - - Weight 110.2 kg (243 lb) 07/23/2013 1:18 PM EDT Height 177.8 cm (5' 10 ) 07/23/2013 1:18 PM EDT Body Mass Index 34.87 07/23/2013 1:18 PM EDT documented in this encounter Progress Notes * Unknown, Unknown - 08/02/2013 12:00 AM EDT documented in this encounter H&P Notes * Miller Bo MD - 07/23/2013 1:08 PM EDT Neurology Consult - [facility] Neurology No chief complaint on file. HPI: Renan Goncalves is a 68 y.o. left handed male who was referred for consultation for hallucinations and dizziness . Mr. Goncalves arrived unaccompanied today. The referral reports he is to be seen for hallucinations anddizziness. He has a diagnosis of paranoid schizophrenia, which by definition has hallucinations as part of the diagnosis. When told that the referral was for dizziness and hallucinations and asked ifhe felt dizzy he stood up to check and turned himself from side to side. He is really not able to pr ovide much history. I attempted to ask him more direct, yes/no questions to see if I could get information from him. Even with that he was tangential and vague and not really providing much information about how he feels. When speaking about dizziness he talks about how his ears get clogged up. He describes dizziness more of a light-headed sensation than a vertiginous one. When asked why he feels he is dizzy he reports he thinks it is the risperdal he takes that is causing it. He can't think of what causes it , improves it, or makes it worse. He really can not provide any good information at all regarding his symptoms. I had to specifically ask him if he sees things that aren't there. He admits to seeing and hearing things. He has a tough time describing what he sees, but reports hearing something that sounds like Prem Bonillaler and O Melani . After a while I felt that the visit was not being productive so called his referring physician () to find out more information. It seems the patient has been having problems with falling recently. He seems to be unsteady and has been working with physical therapy for about two weeks. He was recommended to use a wheelchair and just got a walker this morning. Past Medical History Diagnosis Date ??? Hypertension ??? Paranoid schizophrenia ??? High cholesterol No past surgical history on file. Current Outpatient Prescriptions on File Prior to Visit Medication Sig Dispense Refill ??? acetaminophen Oral tablet Take 650 mg by mouth every 4 hours as needed for Pain (2 tabs for elevated temp/discomfort). ??? haloperidol (HALDOL) 5 mg tablet Take 5 mg by mouth every 4 hours as needed for Agitation (every 4 hours as needed for agitation). ??? guaiFENesin-dextromethorphan (ROBITUSSIN DM) 10-100 mg/5 mL syrup Take 10 mL by mouth every 4 hours as needed for Cough. ??? amLODIPine (NORVASC) 10 mg tablet Take 10 mg by mouth daily. ??? Aspirin 81 mg Take 81 mg by mouth daily. ??? atenolol (TENORMIN) 50 mg tablet Take 50 mg by mouth daily. ??? valsartan (DIOVAN) 320 mg tablet Take 320 mg by mouth daily. ??? FLUoxetine (PROZAC) 40 mg capsule Take 40 mg by mouth 2 times daily. ??? fUROsemide (LASIX) 40 mg tablet Take 40 mg by mouth daily. ??? potassium chloride (MICRO-K) 10 mEq CR capsule Take 20 mEq by mouth 2 times daily. ??? risperiDONE (RISPERDAL) 4 mg tablet Take 4 mg by mouth 2 times daily. ??? simvastatin (ZOCOR) 10 mg Take 10 mg by mouth nightly. ??? terazosin (HYTRIN) 2 mg capsule Take 2 mg by mouth nightly. No current facility-administered medications on file prior to visit. History Social History ??? Marital Status: Unknown Spouse Name: N/A Number of Children: N/A ??? Years of Education: N/A Occupational History ??? Not on file. Social History Main Topics ??? Smoking status: Never Smoker ??? Smokeless tobacco: Not on file ??? Alcohol Use: No ??? Drug Use: No ??? Sexually Active: Not on file Other Topics Concern ??? Not on file Social History Narrative ??? No narrative on file No family history on file. Review of Systems All systems reviewed and negative except as per HPI. See scanned image for details. Physical Exam Filed Vitals: 07/23/13 1318 BP: 124/62 Pulse: 76 Temp: 97.9 ??F (36.6 ??C) Resp: 16 Body mass index is 34.87 kg/(m^2). Gen: Well developed, well nourished Heart: Regular, no murmurs/rubs/gallops Lungs: Clear to auscultation Abd: Soft, non-tender, non-distended Ext: No edema Neurology Exam Mental Status: Alert, oriented to person, place, and date. Language: Speech dysarthric at times and somewhat raspy so is difficult to understand. Very tangential. Able to name and repeat without difficulty. Follows commands without difficulty. Cranial Nerves: II: Visual monteiro full to finger count confrontation. Pupils 4 to 3mm OU. Funduscopic examination reveals sharp disc margins bilaterally. III, IV, : EOMI. No nystagmus V: Facial sensations symmetric VII: Facial movements symmetric VIII: Hearing intact IX, X: Palate raises midline XI: Shoulder shrug symmetric XII: Tongue protrudes midline Motor: 5/5 all 4 extremities. Tone is normal in all 4 extremities Sensation: Diminished to vibration in a stocking distribution Reflexes: 2's in the UE's, 1's at the knees and absent in the ankles bilaterally. Toes downgoing bilaterally. Coordination: No ataxia or tremor noted Station and Gait: Able to walk without his walker - fairly steady, but short stride length and diminished arm swing. Wide based. With the walker he is steadier and faster. Romberg - sways and catcheshimself before falling Imaging and Labs: Assessment and Plan: Renan Goncalves is a 68 y.o. left handed male with problems with balance and falls. I had to speak with the referring physician (Dr. Leong) to obtain this information as the patient was not really able to provide much. On examination he has diminished reflexes and sensation in a stocking distribution, consistent with a likely peripheral neuropathy. He does not have diabetes nor does it run in his family. Thus, I would like to check an EMG/NCS to document the presence and severity of any neuropathy found. I also would like to check blood work for potential causes of a peripheral neuropathy. He has just recently gotten a walker (just this morning in fact) and feels steady when using it. I would recommend physical therapy and a cane or walker and he has already been doing this. His primary physician is well aware of the patient and his condition. Luckily I was able to speak with this physician about Mr. Goncalves as he is not really able to provide much information. I hope thathe has assistance at his current residence as he would not able to function on his own. For now, I will follow-up on these test results and have Mr. Goncalves return as needed. I believe his walking problem to be a likely multi-factorial issue with this diminished sensation the primary issue. Unless there is a reversible cause the main treatment will be symptomatic, which he is getting already. Thank you for the opportunity to participate in the care of Renan Goncalves. Please do not hesitate to call with further questions or concerns. documented in this encounter Plan of Treatment Scheduled Orders Name Type Priority Associated Diagnoses Orde r Schedule EMG Neurology Routine Idiopathic peripheral neuropathy Ordered: 07/23/2013 SSB (LA) (DONALD) ANTIBODY, IGG Lab Routine Idiopathic peripheral neuropathy 1 Occurrences starting 07/23/2013 until 07/23/2014 SSA (RO) (DONALD) ANTIBODY, IGG Lab Routine Idiopathic peripheral neuropathy 1 Occurrences starting 07/23/2013 until 07/23/2014 KAPPA-LAMBDA QUANT FLC WITH RATIO Lab Routine Idiopathic peripheral neuropathy 1 Occurrences starting 07/23/2013 until 07/23/2014 COPPER LEVEL Lab Routine Idiopathic peripheral neuropathy 1 Occurrences starting 07/23/2013 until 07/23/2014 VITAMIN B6 (PYRIDOXINE) Lab Routine Idiopathic peripheral neuropathy 1 Occurrences starting 07/23/2013 until 07/23/2014 VITAMIN B1 (THIAMINE) WHOLE BLOOD Lab Routine Idiopathic peripheral neuropathy 1 Occurrences starting 07/23/2013 until 07/23/2014 HEMOGLOBIN A1C Lab Routine Idiopathic peripheral neuropathy Impaired glucose tolerance 1 Occurrences starting 07/23/2013 until 07/23/2014 TSH REFLEX Lab Routine Idiopathic peripheral neuropathy 1 Occurrences starting 07/23/2013 until 07/23/2014 IMMUNOFIX ELECTROPHORESIS Lab Routine Idiopathic peripheral neuropathy 1 Occurrences starting 07/23/2013 until 07/23/2014 VITAMIN B12/ FOLIC ACID Lab Routine Idiopathic peripheral neuropathy 1 Occurrences starting 07/23/2013 until 07/23/2014 documented as of this encounter Visit Diagnoses Diagnosis Idiopathic peripheral neuropathy- Primary Unspecified hereditary and idiopathic peripheral neuropathy Impaired glucose tolerance Impaired glucose tolerance test Repeated falls Other symptoms involving nervous and musculoskeletal systems documented in this encounter
--- OUTSIDE RECORDS SUMMARY | 2024-02-27 10:45 | XMS_ITS | Encounter Summary ---
Author Organization [place] [address] Care Team Providers Care Wool Puller Name Role Phone Unavailable Primary Care Provider Unavailabl e Encounter Details Date Type Department Care Team (Late st Contact Info) Description 07/21/1992 8:44 AM EDT - 07/21/1992 11:59 PM EDT Hospital Encounter HST EPIC [...]
--- OUTSIDE RECORDS SUMMARY | 2024-02-27 10:45 | XMS_ITS | Encounter Summary ---
Author Organization [place] [address] Care Team Providers Care Ham Boner Name Role Phone Salo Segovia MD, Kevin Hollingsworth Primary Care Provid er Reason for Visit * Reason Comments Edema Shortness of Breath * Consultation (Routine) - Closed Specialty Diagnoses / Procedures Referred By Contac t Referred To Contact Internal Medicine-Cardiovascular Disease / Cardiology Diagnoses severe edema in legs and feet/dr leong referring Procedures NEW PATIENT Kevin Leong Sr., MD [address] [place] [phone] Phone: tel: fax: Wander Yeh MD [address] [place] [phone] Phone: tel: fax: Referral ID Status Reason Start Date Expiration Date Visits Re quested Visits Authorized [id number] Closed 02/27/2015 02/27/2016 1 1 Encounter Details Date Type Department Care Team (Latest Contact Info) Description 02/27/2015 12:30 PM EST Office Visit [facility] [address] [place] [address] Wander Yeh MD [address] [place] [phone] SOB (shortness of breath) (Primary Dx); Combined systolic and diastolic congestive heart failure, NYHA class 4 (HCC); Paranoid schizophrenia (HCC) Social History Tobacco Use Types Packs/Day [...] Sign Reading Time Taken Comments Blood Pressure 160/66 02/27/2015 12:40 PM EST Pulse - - Temperature - - Respiratory Rate - - Oxygen Saturation - - Inhaled Oxygen Concentration - - Weight 142.4 kg (314 lb) 02/27/2015 12:40 PM EST Height 180.3 cm (5' 11 ) 02/27/2015 12:40 PM EST Body Mass Index 43.79 02/27/2015 12:40 PM EST documented in this encounter Progress Notes * Wander Yeh MD - 02/27/2015 12:56 PM EST Subjective: Patient ID: Renan Goncalves is a 69 y.o. male. Chief Complaint Patient presents with ??? Edema ??? Shortness of Breath We have been asked by Dr. Leong to provide initial consultation on Renan HPI He is a 69 yo man with edema and SOB. SOB ~ 1 month. Edema is chronic and there are severe venous stasis changes. He is on amlodipine 10 mg qd as well as valsartan (and atenolol) and takes [id number] mg bid. His legs improved only slightly Weight is up > 50 lbs in a month (to 318) He is SOB has orthopnea, he probably does not have chest pain. He does not smoke. He is schizophrenic. He lives in a personal care facility. Only cardiac history is possible h/o CHF. No recent illnesses Their chronic cardiac conditions are: Specialty Problems None History Smoking status ??? Never Smoker Smokeless tobacco ??? Not on file Current Outpatient Prescriptions Medication Sig Dispense Refill ??? acetaminophen Oral [...] by mouth nightly. No current facility-administered medications for this visit. Past Medical History Diagnosis Date ??? Hypertension ??? Paranoid schizophrenia (HCC) ??? High cholesterol No past surgical history on file. No family history on file. History Social History ??? Marital Status: Single Spouse Name: N/A Number of Children: N/A ??? Years of Education: N/A Social History Main Topics ??? Smoking status: Never Smoker ??? Smokeless tobacco: None ??? Alcohol Use: No ??? Drug Use: No ??? Sexual Activity: None Other Topics Concern ??? None Social History Narrative Review of Systems Constitution: Negative for chills, decreased appetite, diaphoresis, fever, weakness, malaise/fatigue, night sweats, weight gain and weight loss. HENT: Negative. Eyes: Negative. Cardiovascular: Positive for dyspnea on exertion, leg swelling and orthopnea. Negative for chest pain, claudication, cyanosis, irregular heartbeat, near- syncope, palpitations, paroxysmal nocturnal dyspnea and syncope. Respiratory: Negative for cough, hemoptysis, shortness of breath, sleep disturbances due to breathing, snoring, sputum production and wheezing. Endocrine: Negative for polydipsia and polyuria. Skin: Negative. Musculoskeletal: Negative. Gastrointestinal: Negative. Genitourinary: Negative. Neurological: Negative. Psychiatric/Behavioral: Negative. Allergic/Immunologic: Negative. Objective: Patient Vitals for the past 24 hrs: BP 02/27/15 1240 160/66 mmHg Body mass index is 43.81 kg/(m^2). Physical Exam Constitutional: He appears healthy. No distress. HENT: Nose: Nose normal. Mouth/Throat: Oropharynx is clear. Eyes: Pupils are equal, round, and reactive to light. Neck: Normal range of motion. Neck supple. No JVD present. No thyromegaly present. Cardiovascular: Normal rate, regular rhythm, normal heart sounds and normal pulses. PMI is not displaced. Pulmonary/Chest: Breath sounds normal. Abdominal: Soft. Bowel sounds are normal. Distention: ascites. There is hepatomegaly. Musculoskeletal: Normal range of motion. Edema: 3 - 4 + to upper calf. Neurological: He is alert and oriented to person, place, and time. Skin: Skin is warm and dry. No rash noted. Relevant Studies Results for orders placed or performed in visit on 02/27/15 POCT EKG Impression Sinus rhythm First degree AV block Low QRS voltages JIMENA Yeh Lab Review Lab Results Component Value Date WBC 5.2 06/20/2013 HGB 13.8 06/20/2013 PLT 173 06/20/2013 Lab Results Component Value Date NA 139 06/20/2013 K 3.7 06/20/2013 GLU 106 06/20/2013 No results found for: TSH No results found for: CHOLESTEROL, HDL, LDLCALC, TRIG No results found for: INR, PROTIME Assessment and Plan: Renan was seen today for edema and shortness of breath. Diagnoses and all orders for this visit: SOB (shortness of breath) Orders: - POCT EKG Combined systolic and diastolic congestive heart failure, NYHA class 4 (HCC) Paranoid schizophrenia (HCC) He has severe right sided CHF with ascites, marked edema, mild renal insufficiency. There is not too much left sided involvement by exam He is willing to be admitted. I will make arrangements. I think he should go to the hospitalists as the admitting doctors and [facility] will consult. documented in this encounter Plan of Treatment Not on file documented as of this encounter Procedures Procedure Name Priority Date/Time Associated Diagnosis Comments POCT EKG Routine 02/27/2015 12:47 PM EST SOB (shortness of breath) documented in this encounter Results * POCT EKG (02/27/2015 12:47 PM EST) 02/27/2015 12:4 7 PM EST Impressions [facility] - 02/27/2015 12:47 PM EST Sinus rhythm First degree AV block Low QRS voltages NSSTTWA Ruba us Wander Yeh MD POINT OF CARE CARDIOLOGY Fin al Result [facility] OFF[facility] documented in this encounter Visit Diagnoses Diagnosis SOB (shortness of breath)- Primary Shortness of breath Combined systolic and diastolic congestive heart failure, NYHA class 4 (HCC) Paranoid schizophrenia (HCC) Paranoid schizophrenia, unspecified condition documented in this encounter Care Teams Ham Boner Relationship Specialty Start Date End Date Kevin Leong Sr., MD [address] [place] [phone] PCP - General Blueprint Cutter 10/29/13 documented as of this encounter
--- OUTSIDE RECORDS SUMMARY | 2024-02-27 10:45 | XMS_ITS | Encounter Summary ---
Author Organization [facility] Address [address] [facility] [place] [address] Care Team Providers Care Supervisor Floor Assembly Name Role Phone Unavailable Primary Care Provider Unavailabl e Encounter Details Date Type Department Care Team (Late st Contact Info) Description 08/05/2008 10:20 AM EDT - 08/05/2008 3:43 PM EDT Hospital Encounter HST EPIC CON UNK COV Nat Polo MD [address] [place] [address] [place] [phone] Social History Tobacco Use Types Packs/Day Years [...]
--- OUTSIDE RECORDS SUMMARY | 2024-02-27 10:45 | XMS_ITS | Encounter Summary ---
Author Organization [place] [address] Care Team Providers Care Industrial Relations Representative Name Role Phone Unavailable Primary Care Provider Unavailabl e Encounter Details Date Type Department Care Team (Late st Contact Info) Description 07/30/1998 1:22 PM EDT - 07/30/1998 11:59 PM EDT Hospital Encounter HST EPIC [...]
--- NOTE | 2024-02-27 10:57 | CT_ITS ---
PROCEDURE INFORMATION: Exam: CT Head Without Contrast Exam date and time: 02/27/2024 11:45 AM Age: 78 years old Clinical indication: Altered mental status/memory loss. TECHNIQUE: Imaging protocol: Computed tomography of the head without contrast. Radiation optimization: All CT scans at this facility use at least one of these dose optimization techniques: automated exposure control; mA and/or kV adjustment per patient size (includes targeted exams where dose is matched to clinical indication); or iterative reconstruction. COMPARISON: CT ANGIO HEAD 02/05/2024 3:14 PM FINDINGS: Brain: There is low attenuation abnormality in the periventricular white matter consistent with chronic microvascular ischemic changes. Cerebral ventricles: Fullness of the ventricular system, similar to prior CT. Paranasal sinuses: There is mild paranasal sinus disease. There may be a small sphenoid sinus air-fluid level. Mastoid air cells: Visualized mastoid air cells are well aerated. Bones: Unremarkable. No acute fracture. Soft tissues: Unremarkable. IMPRESSION: 1. There is low attenuation abnormality in the periventricular white matter consistent with chronic microvascular ischemic changes. If an acute infarct is a clinical concern, follow-up MRI with diffusion imaging is recommended. 2. There is mild paranasal sinus disease. There may be a small sphenoid sinus air-fluid level.
--- NOTE | 2024-02-27 10:57 | XR_ITS ---
PROCEDURE INFORMATION: Exam: XR Chest Exam date and time: 02/27/2024 12:15 PM Age: 78 years old Clinical indication: Other: AMS, sepsis; Additional info: Altered mental status TECHNIQUE: Imaging protocol: Radiologic exam of the chest. Views: 1 view. COMPARISON: CR XR CHEST PORTABLE 02/05/2024 3:26 PM FINDINGS: Lungs: Pulmonary vascular congestion with mild interstitial pulmonary edema. Pulmonary nodule measuring 1.5 cm in the right lung base. No evidence of focal airspace infiltrate. Pleural spaces: No visible pleural effusion. No pneumothorax. Heart/Mediastinum: Cardiomediastinal silhouette is unchanged from prior exam. Bones/joints: No evidence of acute osseous abnormality. IMPRESSION: 1. Pulmonary vascular congestion with mild interstitial pulmonary edema. 2. Pulmonary nodule measuring 1.5 cm in the right lung base.
--- NOTE | 2024-02-27 11:03 | CT_ITS ---
PROCEDURE INFORMATION: Exam: CTA Chest With Contrast Exam date and time: 02/27/2024 11:53 AM Age: 78 years old Clinical indication: Other: Tachy; Additional info: Sepsis tachy TECHNIQUE: Imaging protocol: Computed tomographic angiography of the chest with contrast. Exam focused on the arteries. 3D rendering (Not supervised by radiologist): MIP and/or 3D reconstructed images were created by the technologist. Radiation optimization: All CT scans at this facility use at least one of these dose optimization techniques: automated exposure control; mA and/or kV adjustment per patient size (includes targeted exams where dose is matched to clinical indication); or iterative reconstruction. Contrast material: ISOVUE 370; Contrast volume: 70 ml; Contrast route: INTRAVENOUS (IV); COMPARISON: CT ANGIO CHEST 02/05/2024 3:25 PM FINDINGS: Pulmonary arteries: No evidence of pulmonary embolism. Aorta: No evidence of thoracic aortic aneurysm or dissection. Lungs: Pulmonary vascular congestion with mild interstitial pulmonary edema. Two right lower lobe pulmonary nodules measuring 8 mm and 10 mm (axial series 9 images 40 and 44), new since 02/05/2024 CT. No focal airspace infiltrate. Pleural spaces: Trace right pleural effusion. No left pleural effusion. No pneumothorax. Heart: Mild global cardiomegaly, unchanged. No pericardial effusion. Lymph nodes: Multiple conspicuous subcentimeter mediastinal and hilar lymph nodes. No pathologically enlarged lymph nodes by CT criteria. Pancreas: Pancreatic tail mass partially visualized and grossly unchanged from prior exam. Bones/joints: Multi-level bridging disc osteophytes in the spine compatible with diffuse idiopathic skeletal hyperostosis (DISH), unchanged. No evidence of acute osseous abnormality. Soft tissues: Gynecomastia, not significantly changed from prior exam. IMPRESSION: 1. No evidence of pulmonary embolism. 2. Pulmonary vascular congestion with mild interstitial pulmonary edema. 3. Trace right pleural effusion. 4. Two right lower lobe pulmonary nodules, new since 02/05/2024 CT and suspicious for metastatic disease. 5. Additional chronic ancillary findings detailed above are unchanged from prior exam.
--- NOTE | 2024-02-27 11:03 | CT_ITS ---
PROCEDURE INFORMATION: Exam: CT Abdomen And Pelvis With Contrast Exam date and time: 02/27/2024 11:53 AM Age: 78 years old Clinical indication: Abdominal pain; Generalized; Additional info: Abd ttp, AMS, sepsis TECHNIQUE: Imaging protocol: Computed tomography of the abdomen and pelvis with contrast. Radiation optimization: All CT scans at this facility use at least one of these dose optimization techniques: automated exposure control; mA and/or kV adjustment per patient size (includes targeted exams where dose is matched to clinical indication); or iterative reconstruction. Contrast material: ISOVUE; Contrast volume: 75 ml; Contrast route: IV; COMPARISON: CT ABDOMEN PELVIS W CON 02/05/2024 3:25 PM FINDINGS: Limitations: Respiratory motion artifact and photon starvation artifact related to patient's arm positioning severely degrades images and limits visualization of intra-abdominal structures, particularly in the upper abdomen. Tubes, catheters and devices: Status post placement of right nephroureteral stent, in satisfactory position with proximal pigtail catheter tip coiled within the renal pelvis and distal tip coiled within the urinary bladder. Liver: No focal liver lesions. Gallbladder and biliary ducts: Unremarkable. Pancreas: Heterogeneously hyperenhancing mass in the pancreatic tail is grossly unchanged from 02/05/2024 CT. The pancreatic mass measures 7.5 x 5.0 x 7.0 cm. No evidence of acute pancreatitis. No pancreatic ductal dilation. Spleen: Unremarkable. Adrenal glands: Unremarkable. Kidneys and ureters: Stable right simple renal cyst. No hydronephrosis. Right ureteral calculus is in unchanged position from 02/05/2024 CT. Stomach and bowel: Unremarkable. Appendix: No evidence of appendicitis. Intraperitoneal space: No free fluid. No pneumoperitoneum. Vasculature: Unremarkable. Lymph nodes: Unremarkable. Urinary bladder: Diffuse urinary bladder wall thickening suggestive of acute cystitis. Reproductive: Prostate is enlarged measuring approximately 5.0 cm in transverse axis, not significantly changed. Bones/joints: Multi-level bridging and/or beaked disc osteophytes in the thoracolumbar spine compatible with diffuse idiopathic skeletal hyperostosis (DISH), unchanged. No evidence of acute osseous abnormality. Soft tissues: Unremarkable. IMPRESSION: 1. Diffuse urinary bladder wall thickening suggestive of acute cystitis. Please correlate with urinalysis. No other evidence of acute intra-abdominal pathology. 2. Status post right nephroureteral stent placement with resolution of previously demonstrated hydronephrosis and no evidence of complication. 3. Right ureteral calculus is in unchanged position from 02/05/2024 CT. 4. Heterogeneously hyperenhancing mass in the pancreatic tail is grossly unchanged from 02/05/2024 CT. 5. No liver lesions. 6. Additional chronic ancillary findings are detailed above.
[2024-02-27 11:07] LABS: Basophils # 0.1 K/mm3 (0-0.2); Basophils % 0.3 % (0.1-2.0); Eosinophils % 0.1 % (0.1-12.0); Hematocrit 32.3 % (42.0-52.0); Hemoglobin 10.2 g/dL (14.1-18.0); Lymphocytes # 0.7 K/mm3 (0.7-4.5); Lymphocytes % 4.2 % (10-50); Mean Corpuscular HGB Conc 31.7 g/dL (31.8-35.4); Mean Corpuscular Hemoglobin 28.5 pg (27.0-31.2); Mean Corpuscular Volume 89.9 fl (80-94); Mean Platelet Volume 8.1 fl (7.4-10.4); Monocytes # 0.7 K/mm3 (0.1-1.0); Monocytes % 4.5 % (1.7-9.3); Neutrophils # 14.5 K/mm3 (1.8-7.8); Platelet Count 264 K/mm3 (142-424); Red Blood Count 3.59 M/mm3 (4.60-6.20); Red Cell Distribution Width 17.7 % (11.5-17.5); White Blood Count 15.9 K/mm3 (4.8-10.8)
[2024-02-27 11:11] LABS: Alanine Aminotransferase 31 U/L (12-78); Albumin Level 3.1 g/dl (3.5-5.0); Albumin/Globulin Ratio 0.9 (1.1-1.8); Alkaline Phosphatase 59 U/L (38-126); Anion Gap 15.3 mEq/L (5-15); Aspartate Amino Transferase 31 U/L (17-59); Bilirubin,Total 0.6 mg/dl (0.2-1.3); Blood Urea Nitrogen 23 mg/dl (9-20); Calcium 8.4 mg/dl (8.4-10.2); Carbon Dioxide 26 mmol/L (22.0-30.0); Chloride 100 mmol/L (98-107); Creatinine Clearance Estimated 58 mL/min (50-200); Estimated Glomerular Filt Rate 39 ml/min (>60); GFR (African American) 48 ML/MIN (>60); Globulin 3.5 g/dL (1.3-3.2); Glucose 244 mg/dl (74-100); Magnesium 2.1 mg/dl (1.6-2.3); Potassium 4.3 mmoL/L (3.5-5.1); Sodium 137 mmol/L (136-145); Total Protein,Serum 6.6 g/dl (6.3-8.2)
[2024-02-27 11:13] LABS: Adenovirus,PCR Not Detected (NotDetected); Bordetella Pertussis Not Detected (NotDetected); Chlamydophila Pneumoniae, PCR Not Detected (NotDetected); Coronavirus 19, PCR Not Detected (NotDetected); Coronavirus 229E Not Detected (NotDetected); Coronavirus NL63 Not Detected (NotDetected); Coronavirus OC43 Not Detected (NotDetected); Coronovirus HKU1,PCR Not Detected (NotDetected); Human Metapneumovirus Not Detected (NotDetected); Influenza A, PCR Not Detected (NotDetected); Influenza AH1, 2009 Not Detected (NotDetected); Influenza AH1, PCR Not Detected (NotDetected); Influenza AH3,PCR Not Detected (NotDetected); Influenza B, PCR Not Detected (NotDetected); Mycoplasma Pneumoniae, PCR Not Detected (NotDetected); Parainfluenza 1, PCR Not Detected (NotDetected); Parainfluenza 2, PCR Not Detected (NotDetected); Parainfluenza 3, PCR Not Detected (NotDetected); Parainfluenza 4, PCR Not Detected (NotDetected); Respiratory Syncytial Virus Not Detected (NotDetected); Rhinovirus/Enterovirus Not Detected (NotDetected)
[2024-02-27] MEDS: VANCOMYCIN CONSULT REQUEST 1 EACH NOTAPPLIC (11:21)
[2024-02-27] MEDS: PIPERACILLIN/TAZO 4.5 GM in 0.9 % SODIUM CHLORIDE 100 ML IV (11:24)
[2024-02-27] MEDS: VANCOMYCIN/WATER FOR INJ (PEG) 1.75 GM/350 ML PIGGYBACK IV (11:26)
[2024-02-27] MEDS: LACTATED RINGERS 1000ML 1,000 ML 999 ML IV (11:26)
[2024-02-27 11:32] LABS: Lactic Acid 2.8 mmol/L (0.7-2.1)
[2024-02-27 11:35] LABS: MANUAL DIFFERENTIAL MANUAL DIFFERENTIAL (MANUAL DIFF)
[2024-02-27 11:38] LABS: INR 1.09 (0.9-1.1); Prothrombin Time 12.1 seconds (10.1-12.5)
[2024-02-27 12:11] LABS: Lymphocytes % 13 % (10-50); Monocytes % 1 % (2-9); Neutrophils % 86 % (42-76); RBC Morphology Normal; Total Cells Counted 100
[2024-02-27] MEDS: 0.9 % SODIUM CHLORIDE 50 ML VIAL 100 ML IV (12:11)
[2024-02-27 12:12] LABS: Platelet Estimate Normal
[2024-02-27] MEDS: IOPAMIDOL-370 (76%);100ML BOTTLE 140 ML IV (12:12)
[2024-02-27] MEDS: SODIUM CHLORIDE 0.9% 10ML SYR (RAD ONLY) 10 ML IV (12:12)
--- NOTE | 2024-02-27 12:42 | HMH.EDGENADL ---
Discharge Plan Disposition Patient Disposition: Xfer Short-Term Hosp Condition: Serious Prescriptions Prescriptions: No Action donepezil 5 MG tablet 5 mg PO HS atorvastatin 10 MG tablet 10 mg PO QODHS doxazosin 1 MG tablet 1 mg PO HS oxcarbazepine 300 MG tablet 300 mg PO BID amlodipine 5 MG tablet 5 mg PO DAILY acetaminophen 500 MG tablet 500 mg PO BID risperidone 2 MG tablet 2 mg PO BID pantoprazole 40 MG tablet,delayed release (DR/EC) 40 mg PO DAILY sennosides 8.6 mg Tablet 8.6 mg PO DAILYP PRN (Reason: Constipation) ibuprofen 400 mg tablet 400 mg PO Q8HP PRN (Reason: Mild Pain (Scale Score 1-4)) Eliquis 5 mg Tablet 5 mg PO BID 30 Days Qty: 60 0RF metoprolol succinate 100 mg Tablet Extended Release 24 Hr 100 mg PO DAILY 30 Days Qty: 30 0RF spironolactone 25 mg Tablet 25 mg PO DAILY 30 Days Qty: 30 0RF bumetanide 1 mg tablet 1 mg PO 0800,1400 30 Days Qty: 60 0RF polyethylene glycol 3350 17 GM powder in packet 17 gm PO DAILYP PRN (Reason: Constipation) docusate sodium 250 MG capsule 250 mg PO Q48H ondansetron 4 MG tablet,disintegrating 4 mg PO Q8HP PRN (Reason: Nausea And Vomiting) Referrals Follow up/Referrals: Provider,Referral, MD [Primary Care Provider] - See instructions Clinical Impressions Clinical Impression: Mass of pancreas, Calculus, ureteral, Sepsis, UTI (urinary tract infection), Atrial fibrillation, Pulmonary nodule Stand Alone Forms Stand Alone Forms: Transfer Record - ED Print Language Print Language: Emirati Discharge ED Provider: Frank Robbins General Adult HPI General Chief complaint: Weakness Stated complaint: lathargic Time Seen by Provider: 02/27/24 10:53 Mode of Arrival: EMS Source of Information: Patient Limitations: No Limitations Description of Symptoms (Recalled from ER Triage Doc. by RN): pt from [facility]. staff report pt was able to eat breakfast this am, but after that pt become unresponsive, would not reposond to questions, could not answer questions, knew pts name. History of Present Illness HPI narrative: 78-year-old male presents to the ER from [facility] for concerns of altered mental status. EMS reports that assisted informed them the patient was able to eat breakfast this morning but after that became less responsive, not answering questions. Patient was brought to the ER for further evaluation. He has a known obstructing stone that is going to require surgery and he recently had an admission at for this obstructing stone in the setting of sepsis per my review of recent records. Patient does not provide history, he does respond to stimuli. Related Data Home Medications ?Medication ?Instructions ?Recorded ?Confirmed acetaminophen 500 mg tablet 500 mg PO BID Joint pain 04/21/19 02/15/23 amlodipine 5 mg tablet 5 mg PO DAILY High Blood Pressure 04/21/19 02/15/23 atorvastatin 10 mg tablet 10 mg PO QODHS Cholesterol 04/21/19 02/15/23 donepezil 5 mg tablet 5 mg PO HS Memory 04/21/19 02/15/23 doxazosin 1 mg tablet 1 mg PO HS High Blood Pressure 04/21/19 02/15/23 oxcarbazepine 300 mg tablet 300 mg PO BID Mood 04/21/19 02/15/23 pantoprazole 40 mg tablet,delayed 40 mg PO DAILY Acid Reflux 04/21/19 02/15/23 release risperidone 2 mg tablet 2 mg PO BID Mood 04/21/19 02/15/23 docusate sodium 250 mg capsule 250 mg PO Q48H Constipation 03/22/21 02/15/23 polyethylene glycol 3350 17 gram 17 gm PO DAILYP PRN Constipation 03/22/21 02/15/23 oral powder packet ondansetron 4 mg disintegrating 4 mg PO Q8HP PRN Nausea And 07/20/21 02/15/23 tablet Vomiting ibuprofen 400 mg tablet 400 mg PO Q8HP PRN Mild Pain 02/14/23 02/15/23 (Scale Score 1-4) sennosides 8.6 mg tablet 8.6 mg PO DAILYP PRN Constipation 02/14/23 02/15/23 Previous Rx's ?Medication ?Instructions ?Recorded apixaban 5 mg tablet (Eliquis) 5 mg PO BID 30 days #60 tabs 02/16/23 bumetanide 1 mg tablet 1 mg PO 0800,1400 30 days #60 tabs 02/16/23 metoprolol succinate 100 mg 100 mg PO DAILY 30 days #30 tabs 02/16/23 tablet,extended release 24 hr spironolactone 25 mg tablet 25 mg PO DAILY 30 days #30 tabs 02/16/23 Allergies Allergy/AdvReac Type Severity Reaction Status Date / Time No Known Allergies Allergy Verified 09/20/22 21:35 [facility] Disclaimer: The information contained in this section may have been updated after the patient was seen, as this information can be updated by other users. Medical History (Updated 02/27/24 @ 14:33 by Frank Robbins MD) Dementia Obesity (BMI 30-39.9) Obesity, morbid (more than 100 lbs over ideal weight or BMI > 40) Chronic combined systolic (congestive) and diastolic (congestive) heart failure Osteopenia Lumbar spondylolysis Obesity Mass of pancreas Mass History of falling Neurocognitive disorder GERD (gastroesophageal reflux disease) Major depression Hyperlipemia HTN (hypertension) Chronic paranoid schizophrenia Hx of suicide attempt Social History Smoking Status: Former smoker alcohol intake: never substance use type: denies use current occupational status: disabled Travel in the last 8 weeks: None housing: assisted Other Medical History Have you received the Flu Vaccine for this season: No Have you received the Pneumonia Vaccine: No ROS Obtained: Yes unobtainable due to mental status Physical Exam General General appearance: alert and in no apparent distress Comment: Chronically ill-appearing Head Head exam: atraumatic and normocephalic Eye Eye exam: Present PERRL and EOMI ENT ENT exam: Present mucous membranes moist Neck Neck exam: Present normal inspection and full ROM Chest Chest inspection: Present symmetric chest wall rise Respiratory Respiratory exam: Present normal lung sounds bilaterally; Absent respiratory distress, wheezes or stridor Cardiovascular Cardiovascular exam: Present tachycardia and irregular rhythm Abdominal Exam Abdominal exam: Present soft, tenderness (Diffuse tenderness to palpation of the abdomen), guarding (voluntary) and rigidity; Absent distention Extremities Exam Extremities exam: Present full ROM and edema (+2 bilateral lower extremity pitting edema) Neurological Exam Neurological exam: Absent motor sensory deficit (Does not follow commands but responds equally to noxious stimuli in all extremities, no localizing deficits) Expanded Neurological Exam Coma scale eye opening: To voice Coma scale motor response: Localizes to pain Coma scale verbal response: None Coma scale total: 9 Psychiatric Psychiatric exam: Present normal affect and normal mood Skin Skin exam: Present warm and dry Medical Decision Making Medical Records Medical records reviewed: Yes I reviewed the patient's medical records. Screening: Per USPSTF and CDC recommendations, given the prevalence of disease in our region, it is our hospital?s policy to screen for HIV and viral Hepatitis for all patients aged 18 and over and those with ongoing risk factors. MR Comment: See HPI Miles Inquiry Pt receiving controlled substance: No Vital Signs: 02/27/24 10:30 02/27/24 11:01 02/27/24 11:31 Temperature 100.1 F H Temperature Source Oral Pulse Rate 98 H 89 Pulse Rate [Left Radial] 117 H Respiratory Rate 16 27 H 27 H Blood Pressure 143/65 H 147/62 H Blood Pressure [Right Arm] 146/73 H Blood Pressure Mean [Right Arm] 97 02 Sat by Pulse Oximetry 88 L 95 95 Oxygen Delivery Method Nasal Cannula Nasal Cannula Room Air Oxygen Flow Rate (LPM) 2 02/27/24 12:31 02/27/24 13:01 02/27/24 13:31 Temperature Temperature Source Pulse Rate 101 H 107 H 132 H Pulse Rate [Left Radial] Respiratory Rate 24 24 36 H Blood Pressure 166/80 H 167/80 H 155/77 H Blood Pressure [Right Arm] Blood Pressure Mean [Right Arm] 02 Sat by Pulse Oximetry 96 96 95 Oxygen Delivery Method Nasal Cannula Nasal Cannula Room Air Oxygen Flow Rate (LPM) 02/27/24 14:01 Temperature Temperature Source Pulse Rate 112 H Pulse Rate [Left Radial] Respiratory Rate 34 H Blood Pressure 138/64 Blood Pressure [Right Arm] Blood Pressure Mean [Right Arm] 02 Sat by Pulse Oximetry 95 Oxygen Delivery Method Nasal Cannula Oxygen Flow Rate (LPM) Lab Data Lab Results 02/27/24 10:31: WBC 15.9 H, RBC 3.59 L, Hgb 10.2 L, Hct 32.3 L, MCV 89.9, MCH 28.5, MCHC 31.7 L, RDW 17.7 H, Plt Count 264, MPV 8.1, Neut % (Auto) 91.0 H, Lymph % (Auto) 4.2 L, [place] % (Auto) 4.5, Eos % (Auto) 0.1, Baso % (Auto) 0.3, Neut # (Auto) 14.5 H, Lymph # (Auto) 0.7, [place] # (Auto) 0.7, Eos # (Auto) 0.0, Baso # (Auto) 0.1, Total Counted 100, Neutrophils % (Manual) 86 H, Lymphocytes % (Manual) 13, Monocytes % (Manual) 1 L, Platelet Estimate Normal, RBC Morphology Normal, PT 12.1, INR 1.09, Sodium 137, Potassium 4.3, Chloride 100, Carbon Dioxide 26, Anion Gap 15.3 H, BUN 23 H, Creatinine 1.70 H, Estimated Creat Clear 58, Estimated GFR 39 L, Est GFR ( Amer) 48 L, Glucose 244 H, Lactate 2.8 H, Calcium 8.4, Magnesium 2.1, Total Bilirubin 0.6, AST 31, ALT 31, Alkaline Phosphatase 59, Troponin I 0.02, Total Protein 6.6, Albumin 3.1 L, Globulin 3.5 H, Albumin/Globulin Ratio 0.9 L 02/27/24 10:38: VBG pH 7.42 H, VBG pCO2 38.1, VBG pO2 48.2 H, VBG HCO3 24.1, VBG Total CO2 25.3, VBG O2 Saturation 81.8 H, VBG Base Excess -0.4, VBG Lactic Acid 5.0 H 02/27/24 12:55: Urine Color Yellow, Urine Appearance Cloudy, Urine pH 6.0, Ur Specific [place] <= 1.005, Urine Protein 2+ A, Urine Glucose (UA) Negative, Urine Ketones Negative, Urine Blood 3+ A, Urine Nitrate Negative, Urine Bilirubin Negative, Urine Urobilinogen 0.2, Ur Leukocyte Esterase 1+ A, Urine RBC 50-100, Urine WBC Tntc, Ur Squamous Epith Cells 5-10, Urine Bacteria 1+, Urine Opiates Screen Negative, Urine Methadone Screen Negative, Ur Barbituates Screen Negative, Ur Phencyclidine Scrn Negative, Ur Amphetamines Screen Negative, U Benzodiazepines Scrn Negative, Urine Cocaine Screen Negative, U Marijuana (THC) Screen Negative 02/27/24 13:51: Troponin I 0.02 02/27/24 10:31 02/27/24 10:31 Orders (Tests/Meds): ED MEDICATIONS Generic Name Dose Route Start Last Admin Trade Name Freq PRN Reason Stop Dose Admin Sodium Chloride 10 ml 02/27/24 12:11 02/27/24 12:12 Sodium Chloride 0.9% 10ml Syr (Rad Only) IV 03/28/24 12:10 10 ml NEEDED PRN Administration Maintain IV Site Discontinued Medications Generic Name Dose Route Start Last Admin Trade Name Coni PRN Reason Stop Dose Admin Acetaminophen 1,000 mg 02/27/24 12:48 02/27/24 13:36 Acetaminophen 1,000mg/100ml Vial IV 02/27/24 12:49 1,000 mg ONCE ONE Administration Lactated Ringer's 1,000 mls @ 999 mls/hr 02/27/24 10:57 02/27/24 11:26 Lactated Ringer's 1000 Ml Bag IV 02/27/24 11:57 999 mls/hr .Q1H1M ONE Administration Piperacillin Sod/Tazobactam 100 mls @ 200 mls/hr 02/27/24 10:59 02/27/24 11:24 Sod 4.5 gm/ Sodium Chloride IV 02/27/24 11:28 200 mls/hr ONCE ONE Administration Vancomycin/PEG/NADA/Lysine/Water 1.75 gm in 350 mls @ 175 mls/hr 02/27/24 11:15 02/27/24 11:26 Vancomycin 1.75gm/350ml (Peg) Premix IV 02/27/24 13:14 175 mls/hr ONCE ONE Administration Iopamidol 140 ml 02/27/24 12:11 02/27/24 12:12 Iopamidol-370 (76%);100ml Bottle IV 02/27/24 12:12 140 ml ONCE ONE Administration Miscellaneous 1 each 02/27/24 11:00 02/27/24 11:21 Vancomycin Consult Request NOTAPPLIC 03/28/24 10:59 1 each CONSULT PHARMACY [facility] Administration Sodium Chloride 100 ml 02/27/24 12:11 02/27/24 12:11 0.9 % Sodium Chloride 50 Ml Vial IV 02/27/24 12:12 100 ml ONCE ONE Administration ORDERS Category Date Time Status CT abdomen pelvis w con Stat Cat Scan 02/27/24 11:[address] angio chest PE protocol Stat Cat Scan 02/27/24 11:[address] head/brain wo con Stat Cat Scan 02/27/24 10:57 Completed XR chest portable Stat Exams 02/27/24 10:57 Completed Complete Blood Count Auto Diff Stat Lab 02/27/24 10:31 Completed Comprehensive Metabolic Panel Stat Lab 02/27/24 10:31 Completed Drug Screen,Urine Stat Lab 02/27/24 12:55 Completed Full Resp Panel w/COVID ([facility]) Routine Lab 02/27/24 11:10 Received Hep C Ab with Reflex to RNA Stat Lab 02/27/24 10:31 Received Lactic Acid Stat Lab 02/27/24 10:31 Completed Magnesium Stat Lab 02/27/24 10:31 Completed Prothrombin Time INR Stat Lab 02/27/24 10:31 Completed Trop I [Troponin I] Stat Lab 02/27/24 10:31 Completed Troponin I Q3H Lab 02/27/24 13:51 Received Troponin I Q3H Lab 02/27/24 16:00 Ordered Urinalysis and Microscopic Stat Lab 02/27/24 12:55 Completed Blood Culture Stat Micro 02/27/24 10:31 Received Urine Culture Stat Micro 02/27/24 12:55 Received VBG [Venous Blood Gas] Stat RT 02/27/24 10:38 Completed ECG Request Stat Y 02/27/24 10:57 Ordered Medical Decision Narrative: In summary, this 78-year-old male with multiple comorbidities including GERD, hyperlipidemia, known kidney stone causing obstruction, CHF presents to the emergency department today with altered mental status. On initial evaluation patient is hemodynamically stable though he is tachycardic and irregular, he does have a history of A-fib based on my review of previous ECGs, he has tenderness of the abdomen on exam with voluntary guarding, aside from tachycardia cardiopulmonary exam is relatively benign, patient does have +2 pitting edema in the bilateral lower extremities, patient does not have any localizing deficits, GCS 9. Differential diagnosis includes but is not limited to sepsis, urinary tract infection, lactic acidosis, intracranial bleed, I considered stroke but did not appreciate any localizing deficits, also considered pneumonia, ACS, PE. Based on these concerns, I ordered serum labs, CT imaging, broad workup. ECG personally interpreted demonstrates atrial fibrillation with rapid ventricular response, rate 120, normal axis, right bundle branch block, normal QTc, no STEMI. Patient received IV fluids, broad-spectrum antibiotics including vancomycin and Zosyn, he also received IV acetaminophen for treatment. Labs personally reviewed demonstrate leukocytosis and anemia, normal platelets, PT/INR normal, CMP with findings of kidney dysfunction improved from patient's previous visit, lactate elevated 2.8 on CMP, elevated at 5 on VBG, patient's pH on VBG is 7.42. Trop 0.02 likely related to tachycardia, improved from previous visit to the ER when he was septic. Urinalysis is very obviously infected with too numerous to count WBCs as well as bacteria, leukocyte esterase, red blood cells. UDS negative. Chest x-ray personally interpreted demonstrates pulmonary vascular congestion as well as pulmonary nodule, no lobar infiltrate, see radiology read for final interpretation. CT head personally interpreted does not mistreat acute intracranial abnormality, CT abdomen pelvis concerning for persistent right ureteral stone, CT chest concerning for new pulmonary nodules. See radiology reads for full interpretations. With these findings on CT and labs, I believe patient requires transfer for concerns of urosepsis. I contacted [facility] and spoke with transfer center Dr. Liu, after reviewing the case including patient being in their system and supposed to have a urologic procedure with Dr. Vargas tomorrow, he graciously accepted the patient for ED to ED transfer to [facility]. I reassessed the patient and his heart rate has improved since receiving fluid bolus, I am not going to give him additional fluids since he has findings of pulmonary vascular congestion and findings of edema. His mental status has improved slightly, he arouses more easily, he now follows commands. GCS 10, improved from 9. He is protecting his airway, able to lift up his head and look around. Patient will go via ALS ambulance. He was transferred in serious but improved condition. Critical Care Critical Care Time Critical Care Time: Yes Attestation: On 02/27/24, the high probability of a clinically significant, sudden or life threatening deterioration of the following system(s) required my full and direct attention, intervention and personal management. The time I documented below is in addition to time spent performing reported procedures but includes the following listed in this critical care notation. Total Time Total Critical Care Time: 35
[2024-02-27 12:59] LABS: Microscopic, Urine URINE MICROSCOPIC (MICROSCOPIC)
[2024-02-27 13:02] LABS: Appearance,Urine CLOUDY (Clear); Bilirubin,Urine Negative (Negative); Blood, Urine 3+ (Negative); Color,Urine YELLOW (Yellow); Glucose,Urine (UA) Negative (Negative); Ketones,Urine Negative (Negative); Leukocyte Esterase,Urine 1+ (Negative); Nitrate,Urine Negative (Negative); Protein,Urine 2+ (Negative); Specific Gravity, Urine <= 1.005 (1.005-1.030); Urobilinogen,Urine 0.2 EU/dl (0.2)
[2024-02-27 13:13] LABS: Amphetamine/Metha Screen,Urine Negative ng/ml (<1000); Benzodiazepines Screen,Urine Negative ng/ml (<200); WBC,Urine TNTC #/hpf (0-3)
[2024-02-27 13:14] LABS: Bacteria,Urine 1+ /lpf; Barbiturates Screen,Urine Negative ng/ml (<200); RBC,Urine 50-100 #/hpf (0-3)
[2024-02-27 13:15] LABS: Troponin I 0.02 ng/ml (0.00-0.034)
[2024-02-27 13:15] LABS: Cannabinoid Screen,Urine Negative ng/ml (<50); Cocaine Screen,Urine Negative ng/ml (<300)
[2024-02-27 13:16] LABS: Methadone Screen,Urine Negative ng/ml (<300)
[2024-02-27 13:17] LABS: Opiate Screen,Urine Negative ng/ml (<300); Phencyclidine Screen,Urine Negative ng/ml (<25)
[2024-02-27] MEDS: ACETAMINOPHEN 1,000MG/100ML VIAL 1000 MG IV (13:36)
--- NOTE | 2024-02-27 14:14 | PC.NURSE ---
Called [facility] to see about getting this pt transferred. conneceted with Dr Liu and is speaking with Dr Robbins now
[2024-02-27 14:26] LABS: Troponin I 0.02 ng/ml (0.00-0.034)
--- NOTE | 2024-02-27 14:39 | PC.NURSE ---
call made to [facility] for transport to ED
[2024-02-27 14:48] LABS: Reflex Lactic Add Lactic Reflex
[2024-02-27 15:08] LABS: Lactic Acid Follow Up (RFLX 1) 1.3 mmol/L (0.7-2.1)
--- NOTE | 2024-02-28 | PC.NURSE ---
+ blood cultures called to Kalina DAVEY at
[2024-02-28 09:15] LABS: HCV Ab Non Reactive (Non Reactive)
--- NOTE | 2024-02-29 12:00 | PC.NURSE ---
faxed blood culture results to 10th floor [phone]
== END 2024-02-27 15:46 | disposition short-term general hospital (02) ==
PROVIDERS: Emergency Provider Emergency Medicine
DX: A41.9 Sepsis, unspecified organism (principal); R91.1 Solitary pulmonary nodule; I48.91 Unspecified atrial fibrillation; N39.0 Urinary tract infection, site not specified; N20.1 Calculus of ureter; K86.89 Other specified diseases of pancreas; R53.1 Weakness; R41.82 Altered mental status, unspecified
CPT/HCPCS: 70450; 71045; 71275; 74177; 80053; 80307; 81001; 82803; 83605; 83735; 84484; 85007; 85025; 85027; 85610; 86803; 87040; 87077; 87086; 87088; 87186; 87633; 93005; 96361; 96365; 96366; 96374; 99291; J0131; J2543; J7120; Q9967

== ENCOUNTER 2024-04-18 16:13 | Outpatient (CLI) | payer MEDICARE, MEDICAID, SELFPAY ==
[2024-04-18 17:52] LABS: Occult Blood,Stool Positive (Negative)
== END 2024-04-18 23:59 | disposition home or self-care (01) ==
LOC: LAB.DROPOF 16:17
PROVIDERS: PCP Internal Medicine Adolescent Medicine; Visit Provider Internal Medicine Adolescent Medicine
DX: R13.11 Dysphagia, oral phase (principal)
CPT/HCPCS: 82272; G0328

== ENCOUNTER 2024-06-12 15:02 | Outpatient (CLI) | payer MEDICARE, MEDICAID, SELFPAY ==
[2024-06-12 16:00] LABS: Chloride 103 mmol/L (98-107); Potassium 3.8 mmoL/L (3.5-5.1); Sodium 136 mmol/L (136-145)
[2024-06-12 16:03] LABS: Anion Gap 8.8 mEq/L (5-15); Blood Urea Nitrogen 15 mg/dl (9-20); Calcium 8.1 mg/dl (8.4-10.2); Carbon Dioxide 28 mmol/L (22.0-30.0); Estimated Glomerular Filt Rate 59 ml/min (>60); GFR (African American) 71 ML/MIN (>60); Glucose 135 mg/dl (74-100)
== END 2024-06-12 23:59 | disposition home or self-care (01) ==
LOC: LAB 15:04
PROVIDERS: PCP Internal Medicine Adolescent Medicine; Visit Provider Nurse Practitioner Family
DX: I50.42 Chronic combined systolic (congestive) and diastolic (congestive) heart failure (principal)
CPT/HCPCS: 80048

== ENCOUNTER 2024-06-28 11:24 | Outpatient (CLI) | payer MEDICARE, MEDICAID, SELFPAY ==
[2024-06-28 12:41] LABS: Occult Blood,Stool Negative (Negative)
== END 2024-06-28 23:59 | disposition home or self-care (01) ==
LOC: LAB.DROPOF 11:25
PROVIDERS: PCP Internal Medicine Adolescent Medicine; Visit Provider Nurse Practitioner Family
DX: D64.9 Anemia, unspecified (principal)
CPT/HCPCS: 82272; G0328

== ENCOUNTER 2025-01-08 13:00 | Emergency (ER) | payer MEDICARE, MEDICAID, SELFPAY ==
[2025-01-08] VITALS (15 sets, daily range): BP systolic 115–152; BP diastolic 53–83; PULSE 69–91; RESP 18–47; TEMP 36.9–37; O2SAT 91–95; BMI 33.9
--- NOTE | 2025-01-08 13:09 | XR_ITS ---
FINAL REPORT CLINICAL HISTORY: bruising FINDINGS: RIGHT FOOT Three views were obtained. There is no fracture or dislocation. The joint spaces appear normal. Prominent soft tissue edema over the dorsum of the foot measures 2.8 cm. There is a small plantar spur. There are moderate hypertrophic changes at the first MTP joint. IMPRESSION: Prominent soft tissue edema without acute osseous abnormality. Reviewed, Interpreted and Dictated by Les Nelson MD Transcribed by Beth Last Authenticated and [facility]
--- NOTE | 2025-01-08 13:09 | XR_ITS ---
FINAL REPORT CLINICAL HISTORY: short of breath COMPARISON: 02/27/2024 FINDINGS: SINGLE VIEW CHEST There is cardiomegaly. The mediastinum is unremarkable. The lungs are underinflated. There are chronic changes in both lungs accentuated by the underinflation. There is no pneumothorax. IMPRESSION: Chronic appearing findings. Reviewed, Interpreted and Dictated by Les Nelson MD Transcribed by Beth Last Authentic[facility] and [facility]
--- NOTE | 2025-01-08 13:15 | ED_ITS ---
<Statement entered by Ferny White DO - 01/09/25 07:34> I was consulted by the CH[facility], and we discussed the complexity of problems being addressed. I approved the treatment and management plan for this patient's care in the emergency department, thus performing a substantive portion of the medical decision making. At the time of shift change I had evaluated this patient and he had marked cellulitic appearing erythema on the right foot and his left foot was cold and pulses were undetectable to by Doppler. CTA with runoff of the lower extremities was ordered. Inflammatory markers had returned significantly high. On the patient's right foot he had a mixture of serosanguineous and purulent output from the right great toe raising concern for osteomyelitis. He was started on broad-spectrum antibiotics with vancomycin and Zosyn. This case was handed off to the oncoming attending who will follow-up on results of the CTA with runoff with the [facility]. My clinic note that this patient is likely going to necessitate transfer for higher level of care. Ferny White DO Discharge Plan Disposition Patient Disposition: Xfer Other Prescriptions Prescriptions: No Action donepezil 5 MG tablet 5 mg PO HS atorvastatin 10 MG tablet 10 mg PO QODHS doxazosin 1 MG tablet 1 mg PO HS oxcarbazepine 300 MG tablet 300 mg PO BID amlodipine 5 MG tablet 5 mg PO DAILY acetaminophen 500 MG tablet 500 mg PO BID risperidone 2 MG tablet 2 mg PO BID pantoprazole 40 MG tablet,delayed release (DR/EC) 40 mg PO DAILY sennosides 8.6 mg Tablet 8.6 mg PO DAILYP PRN (Reason: Constipation) ibuprofen 400 mg tablet 400 mg PO Q8HP PRN (Reason: Mild Pain (Scale Score 1-4)) Eliquis 5 mg Tablet 5 mg PO BID 30 Days Qty: 60 0RF metoprolol succinate 100 mg Tablet Extended Release 24 Hr 100 mg PO DAILY 30 Days Qty: 30 0RF spironolactone 25 mg Tablet 25 mg PO DAILY 30 Days Qty: 30 0RF bumetanide 1 mg tablet 1 mg PO 0800,1400 30 Days Qty: 60 0RF polyethylene glycol 3350 17 GM powder in packet 17 gm PO DAILYP PRN (Reason: Constipation) docusate sodium 250 MG capsule 250 mg PO Q48H ondansetron 4 MG tablet,disintegrating 4 mg PO Q8HP PRN (Reason: Nausea And Vomiting) Clinical Impressions Clinical Impression: Occlusion of left popliteal artery, UTI (urinary tract infection), COVID, Cellulitis Stand Alone Forms Stand Alone Forms: Transfer Record - ED Instructions Patient Instructions: Cellulitis, DI for Urinary Tract Infection (UTI) Print Language Print Language: Sinhala Discharge ED Provider: Ferny White General Adult HPI <Shilpa Diaz (ED), ENVIRONMENTAL ATTORNEY - Last Filed: 01/08/25 20:19> General Chief complaint: Skin/Abscess/Foreign Body Stated complaint: Wound Rt foot Time Seen by Provider: 01/08/25 13:08 Mode of Arrival: EMS Source of Information: EMS Description of Symptoms (Recalled from ER Triage Doc. by RN): [facility] EMS stated the pt was in the dining room at the [facility] when staff noticed blood on his sock. Upon removing his sock, staff noticed a large red rash/blister that was oozing blood on the right great toe and down the foot almost to the pt ankle. Upon assesment, right toe has a large draining blister along with white discoloration on the remaining 4 toes. Pt complains of pain, but is unable to verbalize much more History of Present Illness HPI narrative: 79-year-old male presents via EMS from [facility] for right foot pain, bruising and swelling. Patient was in the dining room eating when [facility] staff looked down and noticed blood on his sock. They removed his sock and he has a large blister covering his entire foot and toes. The great toe is a large blister that is oozing. The toes are also oozing and painful to move. Upon assessment patient somewhat verbalizes pain in his feet bilaterally. Patient does have a history of CHF, hypertension, dementia, schizophrenia. Patient attempts to communicate but it is difficult to understand him. This is his baseline. Patient has not had an injury to this foot Related Data Home Medications ?Medication ?Instructions ?Recorded ?Confirmed acetaminophen 500 mg tablet 500 mg PO BID Joint pain 0 04/21/19 02/15/23 amlodipine 5 mg tablet 5 mg PO DAILY High Blood Pre ssure 04/21/19 02/15/23 atorvastatin 10 mg tablet 10 mg PO QODHS Cholesterol 0 04/21/19 02/15/23 donepezil 5 mg tablet 5 mg PO HS Memory 04/21/19 1 04/17/22 doxazosin 1 mg tablet 1 mg PO HS High Blood Pressu re 04/21/19 02/15/23 oxcarbazepine 300 mg tablet 300 mg PO BID Mood 0 02/15/23 pantoprazole 40 mg tablet,delayed 40 mg PO DAILY Acid Reflux 04/21/19 02/15/23 release risperidone 2 mg tablet 2 mg PO BID Mood 04/21/19 docusate sodium 250 mg capsule 250 mg PO Q48H Constipa tion 03/22/21 02/15/23 polyethylene glycol 3350 17 gram 17 gm PO DAILYP PRN C onstipation 03/22/21 02/15/23 oral powder packet ondansetron 4 mg disintegrating 4 mg PO Q8HP PRN Nause a And 07/20/21 02/15/23 tablet Vomiting ibuprofen 400 mg tablet 400 mg PO Q8HP PRN Mild Pain 02/14/23 02/15/23 (Scale Score 1-4) sennosides 8.6 mg tablet 8.6 mg PO DAILYP PRN Constip ation 02/14/23 02/15/23 Previous Rx's ?Medication ?Instructions ?Recorded apixaban 5 mg tablet (Eliquis) 5 mg PO BID 30 days #60 tabs 02/16/23 bumetanide 1 mg tablet 1 mg PO 0800,1400 30 days #6 0 tabs 02/16/23 metoprolol succinate 100 mg 100 mg PO DAILY 30 days #3 0 tabs 02/16/23 tablet,extended release 24 hr spironolactone 25 mg tablet 25 mg PO DAILY 30 days #30 tabs 02/16/23 Allergies Allergy/AdvReac Type Severity Reaction Status Date / Time No Known Allergies Allergy Verified 09/20/22 21:35 [facility] <Shilpa Diaz (ED), ENVIRONMENTAL ATTORNEY - Last Filed: 01/08/25 20:19> [facility] Disclaimer: The information contained in this section may have been updated after the patient was seen, as this information can be updated by other users. Medical History (Updated 01/08/25 @ 18:59 by Shilpa Diaz (ED), ENVIRONMENTAL ATTORNEY) Dementia Obesity (BMI 30-39.9) Obesity, morbid (more than 100 lbs over ideal weight or BMI > 40) Chronic combined systolic (congestive) and diastolic (congestive) heart failure Osteopenia Lumbar spondylolysis Obesity Mass of pancreas Mass History of falling Neurocognitive disorder GERD (gastroesophageal reflux disease) Major depression Hyperlipemia HTN (hypertension) Chronic paranoid schizophrenia Hx of suicide attempt Social History Smoking Status: Never smoker alcohol intake: never substance use type: denies use current occupational status: disabled Travel in the last 8 weeks?: None housing: [facility] Have you lived/traveled outside US in past 30 days?: No Contact w/someone who lives/traveled outside US past 30 days?: No Exposure to someone with infectious disease in past 14 days?: No Do you have a fever (greater than 100.4 F or 38 C)?: No Have you tested positive for COVID-19?: No Exposed to someone with COVID-19 in past 14 days?: No Do you have a sore throat?: No Do you have a cough?: No Do you have any weakness?: No Do you have any diarrhea?: No Are you experiencing any unusual bleeding?: No Do you have any muscle aches/pain?: No Do you have any abdominal pain?: No Are you experiencing loss of taste or smell?: No Other Medical History Have you received the Flu Vaccine for this season: No Have you received the Pneumonia Vaccine: No <Shilpa Diaz (ED), ENVIRONMENTAL ATTORNEY - Last Filed: 01/08/25 20:19> ROS Obtained: Yes Systems reviewed as appropriate & no additional complaints except as documented Constitutional Constitutional: Reports as per HPI Physical Exam <Shilpa Diaz (ED), ENVIRONMENTAL ATTORNEY - Last Filed: 01/08/25 20:19> General General appearance: alert Head Head exam: normocephalic Eye Eye exam: Present PERRL and EOMI ENT ENT exam: Present mucous membranes moist Neck Neck exam: Present full ROM and trachea midline Respiratory Respiratory exam: Present normal lung sounds bilaterally Cardiovascular Cardiovascular exam: Present normal rhythm, normal heart sounds, +S1 and +S2 Extremities Exam Extremities exam: Present full ROM, tenderness and edema Neurological Exam Neurological exam: Present alert Skin Skin exam: Present warm and dry Medical Decision Making <Shilpa Diaz (ED), ENVIRONMENTAL ATTORNEY - Last Filed: 01/08/25 20:19> Medical Records Screening: Per USPSTF and CDC recommendations, given the prevalence of disease in our region, it is our hospital?s policy to screen for HIV and viral Hepatitis for all patients aged 18 and over and those with ongoing risk factors. Miles Inquiry Pt receiving controlled substance: No Miles was queried for this patient: No Vital Signs: 01/08/25 13:01 01/08/25 13:50 01/08/25 14:01 Temperature 98.4 F Temperature Source Oral Pulse Rate 78 Pulse Rate [Right] 69 Respiratory Rate 18 Blood Pressure 140/68 Blood Pressure [Right Arm] 134/68 Blood Pressure Mean 95 Blood Pressure Mean [Right Arm] 90 Blood Pressure Source Blood Pressure Source [Right Arm] Automatic Cuff Blood Pressure Position Blood Pressure Position [Right Arm] Sitting 02 Sat by Pulse Oximetry 94 L 94 L 95 Oxygen Delivery Method Room Air Room Air 01/08/25 14:31 01/08/25 15:01 01/08/25 15:15 Temperature Temperature Source Pulse Rate 91 H 77 Pulse Rate [Right] Respiratory Rate Blood Pressure 118/53 L 128/61 Blood Pressure [Right Arm] Blood Pressure Mean 87 Blood Pressure Mean [Right Arm] Blood Pressure Source Blood Pressure Source [Right Arm] Blood Pressure Position Blood Pressure Position [Right Arm] 02 Sat by Pulse Oximetry 92 L 94 L Oxygen Delivery Method 01/08/25 15:31 01/08/25 15:45 01/08/25 16:00 Temperature Temperature Source Pulse Rate 89 81 74 Pulse Rate [Right] Respiratory Rate 47 H 24 Blood Pressure 133/75 133/75 125/69 Blood Pressure [Right Arm] Blood Pressure Mean Blood Pressure Mean [Right Arm] Blood Pressure Source Blood Pressure Source [Right Arm] Blood Pressure Position Blood Pressure Position [Right Arm] 02 Sat by Pulse Oximetry 93 L 92 L 91 L Oxygen Delivery Method 01/08/25 16:31 01/08/25 17:00 01/08/25 17:30 Temperature Temperature Source Pulse Rate 72 84 78 Pulse Rate [Right] Respiratory Rate 29 H 22 23 Blood Pressure 134/76 141/83 H 141/63 H Blood Pressure [Right Arm] Blood Pressure Mean Blood Pressure Mean [Right Arm] Blood Pressure Source Blood Pressure Source [Right Arm] Blood Pressure Position Blood Pressure Position [Right Arm] 02 Sat by Pulse Oximetry 92 L 94 L 91 L Oxygen Delivery Method 01/08/25 18:01 01/08/25 18:32 01/08/25 20:39 Temperature 98.6 F Temperature Source Oral Pulse Rate 75 80 88 Pulse Rate [Right] Respiratory Rate 19 21 18 Blood Pressure 152/78 H 115/55 L 152/72 H Blood Pressure [Right Arm] Blood Pressure Mean Blood Pressure Mean [Right Arm] Blood Pressure Source Automatic Cuff Blood Pressure Source [Right Arm] Blood Pressure Position Supine Blood Pressure Position [Right Arm] 02 Sat by Pulse Oximetry 95 95 Oxygen Delivery Method Room Air Room Air Room Air Lab Data Lab Results 01/08/25 13:00: WBC 10.5, RBC 3.97 L, Hgb 9.7 L, Hct 32.5 L, MCV 81.9, MCH 24.4 L, MCHC 29.8 L, RDW 19.1 H, Plt Count 362, MPV 9.4, Neut % (Auto) 83.7 H, Lymph % (Auto) 6.3 L, [place] % (Auto) 5.9, Eos % (Auto) 3.1, Baso % (Auto) 0.4, Neut # (Auto) 8.8 H, Lymph # (Auto) 0.7, [place] # (Auto) 0.6, Eos # (Auto) 0.3, Baso # (Auto) 0.0, ESR > 140 H, PT 12.4, INR 1.13 H, APTT 25.6, Sodium 137, Potassium 4.6, Chloride 101, Carbon Dioxide 27, Anion Gap 13.6, BUN 19, Creatinine 1.30 H, Estimated Creat Clear 75, Estimated GFR 53 L, Est GFR ( Amer) 65, Glucose 150 H, Lactate 2.2 H, Calcium 8.8, Total Bilirubin 0.6, AST 26, ALT 25, Alkaline Phosphatase 91, Total Creatine Kinase < 20 L, C-Reactive Protein 117.1 H, N T-Pro-B Natriuret Pep 44958 H, Total Protein 7.2, Albumin 3.6, Globulin 3.6 H, A lbumin/Globulin Ratio 1.0 L 01/08/25 13:57: SARS-CoV-2 (PCR) Detected A, Influenza A Untype (PCR) Not detected, Influenza Type B (PCR) Not detected 01/08/25 14:11: Urine Color Yellow, Urine Appearance Clear, Urine pH 6.5, Ur Specific [place] 1.010, Urine Protein Trace, Urine Glucose (UA) Negative, Urine Ketones Negative, Urine Blood Trace-i, Urine Nitrate Negative, Urine Bilirubin Negative, Urine Urobilinogen 0.2, Ur Leukocyte Esterase Trace, Urine RBC 10-20, Urine WBC Tntc, Ur Squamous Epith Cells 10-20, Urine Bacteria 4+, Hyaline Casts Occasional, Urine Mucus 1+ 01/08/25 19:03: APTT 27.8 L 01/08/25 13:00 01/08/25 13:00 Orders (Tests/Meds): ED MEDICATIONS Discontinued Medications Generic Name Dose Route Start Last Admin Trade Name Freq PRN Reason Stop Dose Admin Bumetanide 1 mg 01/08/25 14:38 01/08/25 15:36 Bumetanide 1mg/4ml Vial IV 01/08/25 14:39 1 mg ONCE ONE Administration Heparin Sodium (Porcine) 9,071.84 unit 01/08/25 18:51 01/08/25 19:45 Heparin Sodium 5,000 Unit/Ml Vial IV 01/08/25 18:52 9,071.84 unit ONCE ONE Administration Piperacillin Sod/Tazobactam 100 mls @ 200 mls/hr 01/08/25 15:40 01/08/25 16:28 Sod 4.5 gm/ Sodium Chloride IV 01/08/25 16:09 Infused ONCE ONE Infusion Vancomycin/PEG/NADA/Lysine/Water 1.75 gm in 350 mls @ 175 mls/hr 01/08/25 16:00 01/08/25 19:01 Vancomycin 1.75gm/350ml (Peg) Premix IV 01/08/25 17:59 Infused ONCE ONE Infusion Heparin Sodium/Dextrose 500 mls @ 40 mls/hr 01/08/25 19:15 01/08/25 19:45 Heparin 25,000 Units In D5w 500ml Premix IV 02/07/25 19:14 2,000 units/hr .[id number] OMKAR 40 mls/hr 2,000 UNITS/HR Administration Iopamidol 120 ml 01/08/25 14:42 01/08/25 14:43 Iopamidol-370 (76%);100ml Bottle IV 01/08/25 14:43 120 ml ONCE ONE Administration Miscellaneous 1 each 01/08/25 15:45 01/08/25 15:55 Vancomycin Consult Request NOTAPPLIC 02/07/25 15:44 1 each CON[facility] Administration Miscellaneous 1 each 01/08/25 19:00 Heparin Drip Consult NOTAPPLIC 02/07/25 18:59 [facility] Sodium Chloride 100 ml 01/08/25 14:42 01/08/25 14:43 0.9 % Sodium Chloride 50 Ml Vial IV 01/08/25 14:43 100 ml ONCE ONE Administration Sodium Chloride 10 ml 01/08/25 14:42 01/08/25 14:43 Sodium Chloride 0.9% 10ml Syr (Rad Only) IV 01/08/25 14:43 10 ml ONCE ONE Administration ORDERS Category Date Time Status CT angio abdomen/femoral Stat Cat Scan 01/08/25 14:04 Completed Chest XR -- portable [XR chest portable] Stat Exams 01/08/25 13:09 Completed Foot XR right minimum 3 views [XR foot RT min 3V] Stat Exams 01/08/25 13:09 Completed Activated Partial Thrombo Time Stat Lab 01/08/25 13:00 Completed BNP [NT Pro Brain Natriuretic Pep.] Stat Lab 01/08/25 13:00 Completed C-Reactive Protein Stat Lab 01/08/25 13:00 Completed Complete Blood Count Auto Diff Stat Lab 01/08/25 13:00 Completed Comprehensive Metabolic Panel Stat Lab 01/08/25 13:00 Completed Creatine Kinase Stat Lab 01/08/25 13:00 Completed Erythrocyte Sedimentation Rate Stat Lab 01/08/25 13:00 Completed Lactic Acid Stat Lab 01/08/25 13:00 Completed PTT Heparin (inpatient only) Stat Lab 01/08/25 19:03 Completed Prothrombin Time INR Stat Lab 01/08/25 13:00 Completed Rapid PCR Covid and Flu A/B Stat Lab 01/08/25 13:57 Completed Urinalysis and Microscopic Stat Lab 01/08/25 14:11 Completed Blood Culture Stat Micro 01/08/25 13:20 Results Urine Culture Stat Micro 01/08/25 14:11 Received Medical Decision Narrative: patient is a 79-year-old male presenting to the emergency department for evaluation of blister to his right foot erythema and bruising. Patient is hemodynamically stable and nontoxic-appearing upon arrival, afebrile. Differential diagnosis includes septic foot, bruising, fracture, among others. Workup will be conducted with hematologic labs, specific imaging. Initial inventions include no crystalloid bolus due to his fluid that is already on his ankles and feet and his CHF history, will give analgesics if needed, antibiotics. Initial workup reviewed by me hematologic labs are remarkable for normal white count at 10.5, ESR is greater than 140, CRP is is 117. I did expect his inflammatory labs to be elevated as his foot looks very inflamed. His BNP is 11,800. I did give him a dose of IV Bumex for this. He does have a lot of fluid present in his bilateral lower extremities. He was positive for COVID-19. Patient's foot x-ray showed prominent soft tissue edema. We did choose to do a CTA with runoff. Talk to radiology about the correct order. Dr. White did assess the patient as well. I could not find a PT and DP pulse on the left foot which is cold. I asked Dr. White to try to find it as well. He was unable to find it. We are awaiting the CTA. Dr. Robles was able to Doppler pulses on the left foot. We are consulting [facility] at this time due to the CT read. I did consult Dr. Montalvo who does not do osteomyelitis of the foot but told me that Dr. Padgett would do that. I did contact Dr. Zhu and she said that she would not be able to operate tomorrow or Monday. She would have to do it next week. Dr. Robles did talk to and excepted patient to [facility]. Dr. Robles also tried to talk to family but the number was not working. We will transfer to [facility] via EMS. Patient is stable. <Ferny White, - Last Filed: 01/08/25 16:40> Vital Signs: 01/08/25 13:01 01/08/25 13:50 01/08/25 14:01 Temperature 98.4 F Temperature Source Oral Pulse Rate 78 Pulse Rate [Right] 69 Respiratory Rate 18 Blood Pressure 140/68 Blood Pressure [Right Arm] 134/68 Blood Pressure Mean 95 Blood Pressure Mean [Right Arm] 90 Blood Pressure Source Blood Pressure Source [Right Arm] Automatic Cuff Blood Pressure Position Blood Pressure Position [Right Arm] Sitting 02 Sat by Pulse Oximetry 94 L 94 L 95 Oxygen Delivery Method Room Air Room Air 01/08/25 14:31 01/08/25 15:01 01/08/25 15:15 Temperature Temperature Source Pulse Rate 91 H 77 Pulse Rate [Right] Respiratory Rate Blood Pressure 118/53 L 128/61 Blood Pressure [Right Arm] Blood Pressure Mean 87 Blood Pressure Mean [Right Arm] Blood Pressure Source Blood Pressure Source [Right Arm] Blood Pressure Position Blood Pressure Position [Right Arm] 02 Sat by Pulse Oximetry 92 L 94 L Oxygen Delivery Method 01/08/25 15:31 01/08/25 15:45 01/08/25 16:00 Temperature Temperature Source Pulse Rate 89 81 74 Pulse Rate [Right] Respiratory Rate 47 H 24 Blood Pressure 133/75 133/75 125/69 Blood Pressure [Right Arm] Blood Pressure Mean Blood Pressure Mean [Right Arm] Blood Pressure Source Blood Pressure Source [Right Arm] Blood Pressure Position Blood Pressure Position [Right Arm] 02 Sat by Pulse Oximetry 93 L 92 L 91 L Oxygen Delivery Method 01/08/25 16:31 01/08/25 17:00 01/08/25 17:30 Temperature Temperature Source Pulse Rate 72 84 78 Pulse Rate [Right] Respiratory Rate 29 H 22 23 Blood Pressure 134/76 141/83 H 141/63 H Blood Pressure [Right Arm] Blood Pressure Mean Blood Pressure Mean [Right Arm] Blood Pressure Source Blood Pressure Source [Right Arm] Blood Pressure Position Blood Pressure Position [Right Arm] 02 Sat by Pulse Oximetry 92 L 94 L 91 L Oxygen Delivery Method 01/08/25 18:01 01/08/25 18:32 01/08/25 20:39 Temperature 98.6 F Temperature Source Oral Pulse Rate 75 80 88 Pulse Rate [Right] Respiratory Rate 19 21 18 Blood Pressure 152/78 H 115/55 L 152/72 H Blood Pressure [Right Arm] Blood Pressure Mean Blood Pressure Mean [Right Arm] Blood Pressure Source Automatic Cuff Blood Pressure Source [Right Arm] Blood Pressure Position Supine Blood Pressure Position [Right Arm] 02 Sat by Pulse Oximetry 95 95 Oxygen Delivery Method Room Air Room Air Room Air Lab Data Lab Results 01/08/25 13:00: WBC 10.5, RBC 3.97 L, Hgb 9.7 L, Hct 32.5 L, MCV 81.9, MCH 24.4 L, MCHC 29.8 L, RDW 19.1 H, Plt Count 362, MPV 9.4, Neut % (Auto) 83.7 H, Lymph % (Auto) 6.3 L, [place] % (Auto) 5.9, Eos % (Auto) 3.1, Baso % (Auto) 0.4, Neut # (Auto) 8.8 H, Lymph # (Auto) 0.7, [place] # (Auto) 0.6, Eos # (Auto) 0.3, Baso # (Auto) 0.0, ESR > 140 H, PT 12.4, INR 1.13 H, APTT 25.6, Sodium 137, Potassium 4.6, Chloride 101, Carbon Dioxide 27, Anion Gap 13.6, BUN 19, Creatinine 1.30 H, Estimated Creat Clear 75, Estimated GFR 53 L, Est GFR ( Amer) 65, Glucose 150 H, Lactate 2.2 H, Calcium 8.8, Total Bilirubin 0.6, AST 26, ALT 25, Alkaline Phosphatase 91, Total Creatine Kinase < 20 L, C-Reactive Protein 117.1 H, N T-Pro-B Natriuret Pep 52348 H, Total Protein 7.2, Albumin 3.6, Globulin 3.6 H, A lbumin/Globulin Ratio 1.0 L 01/08/25 13:57: SARS-CoV-2 (PCR) Detected A, Influenza A Untype (PCR) Not detected, Influenza Type B (PCR) Not detected 01/08/25 14:11: Urine Color Yellow, Urine Appearance Clear, Urine pH 6.5, Ur Specific [place] 1.010, Urine Protein Trace, Urine Glucose (UA) Negative, Urine Ketones Negative, Urine Blood Trace-i, Urine Nitrate Negative, Urine Bilirubin Negative, Urine Urobilinogen 0.2, Ur Leukocyte Esterase Trace, Urine RBC 10-20, Urine WBC Tntc, Ur Squamous Epith Cells 10-20, Urine Bacteria 4+, Hyaline Casts Occasional, Urine Mucus 1+ 01/08/25 19:03: APTT 27.8 L Orders (Tests/Meds): ED MEDICATIONS Discontinued Medications Generic Name Dose Route Start Last Admin Trade Name Freq PRN Reason Stop Dose Admin Bumetanide 1 mg 01/08/25 14:38 01/08/25 15:36 Bumetanide 1mg/4ml Vial IV 01/08/25 14:39 1 mg ONCE ONE Administration Heparin Sodium (Porcine) 9,071.84 unit 01/08/25 18:51 01/08/25 19:45 Heparin Sodium 5,000 Unit/Ml Vial IV 01/08/25 18:52 9,071.84 unit ONCE ONE Administration Piperacillin Sod/Tazobactam 100 mls @ 200 mls/hr 01/08/25 15:40 01/08/25 16:28 Sod 4.5 gm/ Sodium Chloride IV 01/08/25 16:09 Infused ONCE ONE Infusion Vancomycin/PEG/NADA/Lysine/Water 1.75 gm in 350 mls @ 175 mls/hr 01/08/25 16:00 01/08/25 19:01 Vancomycin 1.75gm/350ml (Peg) Premix IV 01/08/25 17:59 Infused ONCE ONE Infusion Heparin Sodium/Dextrose 500 mls @ 40 mls/hr 01/08/25 19:15 01/08/25 19:45 Heparin 25,000 Units In D5w 500ml Premix IV 02/07/25 19:14 2,000 units/hr .[id number] OMKAR 40 mls/hr 2,000 UNITS/HR Administration Iopamidol 120 ml 01/08/25 14:42 01/08/25 14:43 Iopamidol-370 (76%);100ml Bottle IV 01/08/25 14:43 120 ml ONCE ONE Administration Miscellaneous 1 each 01/08/25 15:45 01/08/25 15:55 Vancomycin Consult Request NOTAPPLIC 02/07/25 15:44 1 each CONSULT [facility] Administration Miscellaneous 1 each 01/08/25 19:00 Heparin Drip Consult NOTAPPLIC 02/07/25 18:59 CONSULT [facility] Sodium Chloride 100 ml 01/08/25 14:42 01/08/25 14:43 0.9 % Sodium Chloride 50 Ml Vial IV 01/08/25 14:43 100 ml ONCE ONE Administration Sodium Chloride 10 ml 01/08/25 14:42 01/08/25 14:43 Sodium Chloride 0.9% 10ml Syr (Rad Only) IV 01/08/25 14:43 10 ml ONCE ONE Administration ORDERS Category Date Time Status CT angio abdomen/femoral Stat Cat Scan 01/08/25 14:04 Completed Chest XR -- portable [XR chest portable] Stat Exams 01/08/25 13:09 Completed Foot XR right minimum 3 views [XR foot RT min 3V] Stat Exams 01/08/25 13:09 Completed Activated Partial Thrombo Time Stat Lab 01/08/25 13:00 Completed BNP [NT Pro Brain Natriuretic Pep.] Stat Lab 01/08/25 13:00 Completed C-Reactive Protein Stat Lab 01/08/25 13:00 Completed Complete Blood Count Auto Diff Stat Lab 01/08/25 13:00 Completed Comprehensive Metabolic Panel Stat Lab 01/08/25 13:00 Completed Creatine Kinase Stat Lab 01/08/25 13:00 Completed Erythrocyte Sedimentation Rate Stat Lab 01/08/25 13:00 Completed Lactic Acid Stat Lab 01/08/25 13:00 Completed PTT Heparin (inpatient only) Stat Lab 01/08/25 19:03 Completed Prothrombin Time INR Stat Lab 01/08/25 13:00 Completed Rapid PCR Covid and Flu A/B Stat Lab 01/08/25 13:57 Completed Urinalysis and Microscopic Stat Lab 01/08/25 14:11 Completed Blood Culture Stat Micro 01/08/25 13:20 Results Urine Culture Stat Micro 01/08/25 14:11 Received ECG Data Tracing #1: I reviewed this ECG and interpreted as documented below: EKG personally interpreted by me demonstrates atrial fibrillation at a rate of 78 bpm, normal axis, narrow QRS, no QTc prolongation. No ST elevation or depression. Full interpretation of this EKG is limited by artifact. <Najma Robles, DO - Last Filed: 01/09/25 15:35> Vital Signs: 01/08/25 13:01 01/08/25 13:50 01/08/25 14:01 Temperature 98.4 F Temperature Source Oral Pulse Rate 78 Pulse Rate [Right] 69 Respiratory Rate 18 Blood Pressure 140/68 Blood Pressure [Right Arm] 134/68 Blood Pressure Mean 95 Blood Pressure Mean [Right Arm] 90 Blood Pressure Source Blood Pressure Source [Right Arm] Automatic Cuff Blood Pressure Position Blood Pressure Position [Right Arm] Sitting 02 Sat by Pulse Oximetry 94 L 94 L 95 Oxygen Delivery Method Room Air Room Air 01/08/25 14:31 01/08/25 15:01 01/08/25 15:15 Temperature Temperature Source Pulse Rate 91 H 77 Pulse Rate [Right] Respiratory Rate Blood Pressure 118/53 L 128/61 Blood Pressure [Right Arm] Blood Pressure Mean 87 Blood Pressure Mean [Right Arm] Blood Pressure Source Blood Pressure Source [Right Arm] Blood Pressure Position Blood Pressure Position [Right Arm] 02 Sat by Pulse Oximetry 92 L 94 L Oxygen Delivery Method 01/08/25 15:31 01/08/25 15:45 01/08/25 16:00 Temperature Temperature Source Pulse Rate 89 81 74 Pulse Rate [Right] Respiratory Rate 47 H 24 Blood Pressure 133/75 133/75 125/69 Blood Pressure [Right Arm] Blood Pressure Mean Blood Pressure Mean [Right Arm] Blood Pressure Source Blood Pressure Source [Right Arm] Blood Pressure Position Blood Pressure Position [Right Arm] 02 Sat by Pulse Oximetry 93 L 92 L 91 L Oxygen Delivery Method 01/08/25 16:31 01/08/25 17:00 01/08/25 17:30 Temperature Temperature Source Pulse Rate 72 84 78 Pulse Rate [Right] Respiratory Rate 29 H 22 23 Blood Pressure 134/76 141/83 H 141/63 H Blood Pressure [Right Arm] Blood Pressure Mean Blood Pressure Mean [Right Arm] Blood Pressure Source Blood Pressure Source [Right Arm] Blood Pressure Position Blood Pressure Position [Right Arm] 02 Sat by Pulse Oximetry 92 L 94 L 91 L Oxygen Delivery Method 01/08/25 18:01 01/08/25 18:32 01/08/25 20:39 Temperature 98.6 F Temperature Source Oral Pulse Rate 75 80 88 Pulse Rate [Right] Respiratory Rate 19 21 18 Blood Pressure 152/78 H 115/55 L 152/72 H Blood Pressure [Right Arm] Blood Pressure Mean Blood Pressure Mean [Right Arm] Blood Pressure Source Automatic Cuff Blood Pressure Source [Right Arm] Blood Pressure Position Supine Blood Pressure Position [Right Arm] 02 Sat by Pulse Oximetry 95 95 Oxygen Delivery Method Room Air Room Air Room Air Lab Data Lab results reviewed: Yes I reviewed the patient's lab results. Lab Results 01/08/25 13:00: WBC 10.5, RBC 3.97 L, Hgb 9.7 L, Hct 32.5 L, MCV 81.9, MCH 24.4 L, MCHC 29.8 L, RDW 19.1 H, Plt Count 362, MPV 9.4, Neut % (Auto) 83.7 H, Lymph % (Auto) 6.3 L, [place] % (Auto) 5.9, Eos % (Auto) 3.1, Baso % (Auto) 0.4, Neut # (Auto) 8.8 H, Lymph # (Auto) 0.7, [place] # (Auto) 0.6, Eos # (Auto) 0.3, Baso # (Auto) 0.0, ESR > 140 H, PT 12.4, INR 1.13 H, APTT 25.6, Sodium 137, Potassium 4.6, Chloride 101, Carbon Dioxide 27, Anion Gap 13.6, BUN 19, Creatinine 1.30 H, Estimated Creat Clear 75, Estimated GFR 53 L, Est GFR ( Amer) 65, Glucose 150 H, Lactate 2.2 H, Calcium 8.8, Total Bilirubin 0.6, AST 26, ALT 25, Alkaline Phosphatase 91, Total Creatine Kinase < 20 L, C-Reactive Protein 117.1 H, N T-Pro-B Natriuret Pep 81012 H, Total Protein 7.2, Albumin 3.6, Globulin 3.6 H, A lbumin/Globulin Ratio 1.0 L 01/08/25 13:57: SARS-CoV-2 (PCR) Detected A, Influenza A Untype (PCR) Not detected, Influenza Type B (PCR) Not detected 01/08/25 14:11: Urine Color Yellow, Urine Appearance Clear, Urine pH 6.5, Ur Specific [place] 1.010, Urine Protein Trace, Urine Glucose (UA) Negative, Urine Ketones Negative, Urine Blood Trace-i, Urine Nitrate Negative, Urine Bilirubin Negative, Urine Urobilinogen 0.2, Ur Leukocyte Esterase Trace, Urine RBC 10-20, Urine WBC Tntc, Ur Squamous Epith Cells 10-20, Urine Bacteria 4+, Hyaline Casts Occasional, Urine Mucus 1+ 01/08/25 19:03: APTT 27.8 L Orders (Tests/Meds): ED MEDICATIONS Discontinued Medications Generic Name Dose Route Start Last Admin Trade Name Freq PRN Reason Stop Dose Admin Bumetanide 1 mg 01/08/25 14:38 01/08/25 15:36 Bumetanide 1mg/4ml Vial IV 01/08/25 14:39 1 mg ONCE ONE Administration Heparin Sodium (Porcine) 9,071.84 unit 01/08/25 18:51 01/08/25 19:45 Heparin Sodium 5,000 Unit/Ml Vial IV 01/08/25 18:52 9,071.84 unit ONCE ONE Administration Piperacillin Sod/Tazobactam 100 mls @ 200 mls/hr 01/08/25 15:40 01/08/25 16:28 Sod 4.5 gm/ Sodium Chloride IV 01/08/25 16:09 Infused ONCE ONE Infusion Vancomycin/PEG/NADA/Lysine/Water 1.75 gm in 350 mls @ 175 mls/hr 01/08/25 16:00 01/08/25 19:01 Vancomycin 1.75gm/350ml (Peg) Premix IV 01/08/25 17:59 Infused ONCE ONE Infusion Heparin Sodium/Dextrose 500 mls @ 40 mls/hr 01/08/25 19:15 01/08/25 19:45 Heparin 25,000 Units In D5w 500ml Premix IV 02/07/25 19:14 2,000 units/hr .[id number] OMKAR 40 mls/hr 2,000 UNITS/HR Administration Iopamidol 120 ml 01/08/25 14:42 01/08/25 14:43 Iopamidol-370 (76%);100ml Bottle IV 01/08/25 14:43 120 ml ONCE ONE Administration Miscellaneous 1 each 01/08/25 15:45 01/08/25 15:55 Vancomycin Consult Request NOTAPPLIC 02/07/25 15:44 1 each CONSULT [facility] Administration Miscellaneous 1 each 01/08/25 19:00 Heparin Drip Consult NOTAPPLIC 02/07/25 18:59 CONSULT [facility]Y [facility] Sodium Chloride 100 ml 01/08/25 14:42 01/08/25 14:43 0.9 % Sodium Chloride 50 Ml Vial IV 01/08/25 14:43 100 ml ONCE ONE Administration Sodium Chloride 10 ml 01/08/25 14:42 01/08/25 14:43 Sodium Chloride 0.9% 10ml Syr (Rad Only) IV 01/08/25 14:43 10 ml ONCE ONE Administration ORDERS Category Date Time Status CT angio abdomen/femoral Stat Cat Scan 01/08/25 14:04 Completed Chest XR -- portable [XR chest portable] Stat Exams 01/08/25 13:09 Completed Foot XR right minimum 3 views [XR foot RT min 3V] Stat Exams 01/08/25 13:09 Completed Activated Partial Thrombo Time Stat Lab 01/08/25 13:00 Completed BNP [NT Pro Brain Natriuretic Pep.] Stat Lab 01/08/25 13:00 Completed C-Reactive Protein Stat Lab 01/08/25 13:00 Completed Complete Blood Count Auto Diff Stat Lab 01/08/25 13:00 Completed Comprehensive Metabolic Panel Stat Lab 01/08/25 13:00 Completed Creatine Kinase Stat Lab 01/08/25 13:00 Completed Erythrocyte Sedimentation Rate Stat Lab 01/08/25 13:00 Completed Lactic Acid Stat Lab 01/08/25 13:00 Completed PTT Heparin (inpatient only) Stat Lab 01/08/25 19:03 Completed Prothrombin Time INR Stat Lab 01/08/25 13:00 Completed Rapid PCR Covid and Flu A/B Stat Lab 01/08/25 13:57 Completed Urinalysis and Microscopic Stat Lab 01/08/25 14:11 Completed Blood Culture Stat Micro 01/08/25 13:20 Results Urine Culture Stat Micro 01/08/25 14:11 Received Medical Decision Narrative: patient is a 79-year-old male presenting to the emergency department for evaluation of blister to his right foot erythema and bruising. Patient is hemodynamically stable and nontoxic-appearing upon arrival, afebrile. Differential diagnosis includes septic foot, bruising, fracture, among others. Workup will be conducted with hematologic labs, specific imaging. Initial inventions include no crystalloid bolus due to his fluid that is already on his ankles and feet and his CHF history, will give analgesics if needed, antibiotics. Initial workup reviewed by me hematologic labs are remarkable for normal white count at 10.5, ESR is greater than 140, CRP is is 117. I did expect his inflammatory labs to be elevated as his foot looks very inflamed. His BNP is 11,800. I did give him a dose of IV Bumex for this. He does have a lot of fluid present in his bilateral lower extremities. He was positive for COVID-19. Patient's foot x-ray showed prominent soft tissue edema. We did choose to do a CTA with runoff. Talk to radiology about the correct order. Dr. White did assess the patient as well. I could not find a PT and DP pulse on the left foot which is cold. I asked Dr. White to try to find it as well. He was unable to find it. We are awaiting the CTA. Dr. Robles was able to Doppler pulses on the left foot. We are consulting [facility] at this time due to the CT read. I did consult Dr. Montalvo who does not do osteomyelitis of the foot but told me that Dr. Padgett would do that. I did contact Dr. Zhu and she said that she would not be able to operate tomorrow or Monday. She would have to do it next week. Dr. Robles did talk to [facility] and excepted patient to [facility]. Dr. Robles also tried to talk to family but the number was not working. We will transfer to [facility] via EMS. Patient is stable. Najma Robles DO I assumed care of the patient at [address] scans were read by radiologist. The radiologist read read some stenosis of the right lower extremity but with three-vessel runoff. They did mention some asymmetry of the flow of the left lower extremity but did not mention any stenosis. I tried to contact the radiologist multiple times to further discuss the read. On my evaluation, patient have a palpable and Doppler DP pulses in the left lower extremity however given concern for possible asymmetry on the read I did have concern for significant arterial stenosis given that patient's foot was cool to the touch. That way I was unable to contact the radiologist, I did consult vascular surgery and had a discussion. Travel Rn Or surgery did mention that patient had pretty significant poor flow after the popliteal which did not seem consistent with patient having a palpable pulse on exam. The patient is a 79-year-old male who does have significant comorbidities. I did attempt to contact family to discuss his transfer and whether they would want any interventions, however family's phone did not work. Patient is reportedly on Eliquis for A-fib INR mildly elevated. Unable to obtain an anti-Xa a here. After further discussion with vascular surgery, it was decided that if patient did not have any significant reasons did not start a hard brain drip at this time that it would be initiated in the emergency department. Patient was initiated on a heparin drip and given a heparin bolus. Patient was ultimately sent to the [facility] emergency department with concern for possible osteo of the right foot with cellulitis and for vascular consult of the left lower extremity. Patient was sent via ALS in stable condition. Critical Care <Shilpa Diaz (ED), ENVIRONMENTAL ATTORNEY - Last Filed: 01/08/25 20:19> Critical Care Time Critical Care Time: No <Najma Robles DO - Last Filed: 01/09/25 15:35> Critical Care Time Critical Care Time: Yes Attestation: On 01/08/25, the high probability of a clinically significant, sudden or life threatening deterioration of the following system(s) required my full and direct attention, intervention and personal management. The time I documented below is in addition to time spent performing reported procedures but includes the following listed in this critical care notation. Total Time Total Critical Care Time: 35
[2025-01-08 13:16] LABS: Hematocrit 32.5 % (42.0-52.0); Hemoglobin 9.7 g/dL (14.1-18.0); Immature Granulocytes % 0.6 %; Mean Corpuscular HGB Conc 29.8 g/dL (31.8-35.4); Mean Corpuscular Hemoglobin 24.4 pg (27.0-31.2); Mean Corpuscular Volume 81.9 fl (80-94); Nucleated Red Blood Cells % 0 %; Platelet Count 362 K/mm3 (142-424); Red Blood Count 3.97 M/mm3 (4.60-6.20); Red Cell Distribution Width-SD 57.2 fL; White Blood Count 10.5 K/mm3 (4.8-10.8)
--- OUTSIDE RECORDS SUMMARY | 2025-01-08 13:19 | XMS_ITS | Clinical Summary ---
Author Organization [facility] Address [address] [place] [address] Care Team Providers Care Ice Platform Supervisor Name Role Phone Jeb Gonzalez MD Primary Care Provider + [phone] Medications donepezil (Aricept) 10 MG tablet Take 1 tablet (10 mg) by mouth every night. 1 Active doxazosin (Cardura) 1 MG tablet Take 1 tablet (1 mg) by mouth every night. 1 Active OXcarbazepine (Trileptal) 300 MG tablet Take 1 tablet (300 mg) by mouth 2 (two) times a day. 1 Active pantoprazole (ProtoNix) 40 MG EC tablet Take 1 tablet (40 mg) by mouth 1 (one) time each day. 1 Active risperiDONE (RisperDAL) 1 MG tablet Take 1 tablet (1 mg) by mouth 1 (one) time each day. 1 Active senna (Senokot) 8.6 MG tablet Take [...] (2 mg) by mouth every night. Active apixaban (Eliquis) 5 MG tablet Take 1 tablet (5 mg) by mouth 2 (two) times a day. Active spironolactone (Aldactone) 25 MG tablet Take 1 tablet (25 mg) by mouth 2 (two) times a day. Active menthol-zinc oxide (Calmoseptine) 0.44-20.6 % ointment ointment [...] 2 (two) times a day. 60 tablet 4 Active bumetanide (Bumex) 1 MG tablet Take 1 tablet (1 mg) by mouth 1 (one) time each day. 4 Active sucralfate (Carafate) 1 g tablet 5 Active Cyanocobalamin (VITAMIN B-12 IJ) Inject as directed. Active Active Problems Problem Noted Date Diagnosed Date Obesity 02/27/2024 Normocytic anemia 02/27/2024 Pulmonary nodule 02/27/2024 Neuroendocrine tumor 11/16/2017 Pancreatic mass 11/06/2017 Resolved Problems Problem Noted Date Diagnosed Date Resolved Date Sepsis secondary to UTI 02/27/202402/09 KARINA (acute kidney injury) 02/27/2024 Atrial fibrillation with RVR 02/27/2024 03/08/2024 Sepsis 02/27/2024 03/08/2024 Hydronephrosis with urinary obstruction due to ureteral calculus 11/08/2023 02/08/2024 Hydronephrosis with renal an d ureteral calculus obstruction 11/07/2023 03/08/2024 Family History Medical History Relation Name Comments Heart disease Father Cancer Mother Relation Name Status Comments Father Mother Social History Tobacco Use Types Packs/Day Years Used Date Smoking Tobacco: Former Tobacco Cessation:Counseling Given: Not Answered Alcohol Use Standard Drinks/Week Comments Not Currently 0 (1 standard drink = 0.6 oz pur e alcohol) Humiliation, Afraid, Rape, a nd Kick questionnaire Answer Date Recorded Within the last year, have y ou been afraid of your partner or ex-partner? Patient unable to answer 02/29/2024 Within the last year, have y ou been humiliated or emotionally abused in other ways by your partner or ex-partner? Patient unable to answer 02/29/2024 Within the last year, have y ou been kicked, hit, slapped, or otherwise physically hurt by your partner or ex-partner? Patient unable to answer 02/29/2024 Within the last year, have y ou been raped or forced to have any kind of sexual activity by your partner or ex-partner? Patient unable to answer 02/29/2024 PHQ-2 Answer Date Recorded Patient Health Questionnaire-2 Score 0 05/22/2024 Hunger Vital Sign Answer Date Recorded Within the past 12 months, y ou worried that your food would run out before you got the money to buy more. Patient unable to answer 02/29/2024 Within the past 12 months, t he food you bought just didn't last and you didn't have money to get more. Patient unable to answer 02/29/2024 PRAPARE - Transportation Answer Date Re corded In the past 12 months, has l ack of transportation kept you from medical appointments or from getting medications? Patient unable to answer 02/29/2024 In the past 12 months, has l ack of transportation kept you from meetings, work, or from getting things needed for daily living? Patient unable to answer 02/29/2024 Housing Stability Vital Sign Answer Samy e [...] health care facility (including now)? No 02/07/2024 Housing Stability Vital Sign Answer Samy e Recorded In the last 12 months, was t here a time when you were not able to pay the mortgage or rent on time? Patient unable to answer 02/29/2024 Number of Times Moved in the Last Year Not on fi le 02/29/2024 At any time in the past 12 m [facility], were you homeless or living in a [place] health care facility (including now)? 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 Patient unable to answer 02/29/2024 Sex and Gender Information Value Date Recorded Sex Assigned at Not on file Legal Sex Male 6:57 PM EDT Gender Identity Not on file Sexual Orientation Not on file Last Filed Vital Signs Vital Sign Reading Time Taken Comments Blood Pressure 159/80 03/08/2024 9:21 AM EST Pulse 81 03/08/2024 9:21 AM EST Temperature 36.8 C (98.2 F) 03/08/2024 9:21 AM EST Respiratory Rate 16 03/08/2024 9:21 AM EST Oxygen Saturation 98% 03/08/2024 9:21 AM EST Inhaled Oxygen Concentration - - Weight 113 kg (250 lb) 05/22/2024 3:00 PM EST Height 182.9 cm (6') 05/22/2024 3:00 PM EST Body Mass Index 33.91 05/22/2024 3:00 PM EST Plan of Treatment Health Maintenance Due Date Last Done Comments [facility]-Medicare Annual Wellness (AWV) 1945 [facility]-/Child/Adol SDOH Screenings 1945 [facility]-Hepatitis A Vaccines (1 of 2 - Risk 2-dose series) 1965 [facility]-Zoster Vaccines (1 of 2) 1965 [facility]-Pneumococcal Vaccine: 50+ Years (2 of 2 - PPSV23, PCV20, or PCV21) 10/16/2017 08/21/2017, 06/01/2016 [id number] Vaccine (3 - Pfizer risk series) 06/12/2020 05/15/2020, 04/25/2020 [facility]-RSV Vaccine: 60+ Years or (1 - 1-dose 75+ series) 2021 [facility]- SDOH Screenings 08/28/2024 [facility]-Adult SDOH Screenings 08/28/2024 02/29/2024 [facility]-Influenza Vaccine (#1) 12/09/202401/17, 01/27/2015, 01/27/2011, Additional history exists [facility]-Depression Screening 05/22/2025 05/22/2024 [facility]-DTaP,Tdap,and Td Vaccines (2 - Td or Tdap) 01/18/2028 01/17/2018, 10/29/2013 FIT Discontinued 06/02/2016 [facility]-Colorectal Cancer Screening Discontinued [facility]-Hepatitis C Screening Completed 2023, 03/02/2024, 11/07/2023 [facility]-Obesity Intervention Completed 05/22/2024, 10/10 CT Colonography Discontinued Colonoscopy Discontinued FIT-DNA Discontinued FOBT Discontinued HPV Vaccines Aged Out No longer eligi ble based on patient's age to complete this topic Sigmoidoscopy Discontinued [facility]-HIB Vaccines Aged Out No longer e ligible based on patient's age to complete this topic [facility]-IPV Vaccines Aged Out No longer e ligible based on patient's age to complete this topic [facility]-Rotavirus Vaccines Aged Out No lo nger eligible based on patient's age to complete this topic Medical Devices Implanted Type Area Artists' Model Device Identifier Shelf Expiration Date Model / Serial / Lot Stent Ureteral Double Pigtail Pos 6fr 24cm - [id number] Implanted:Qty: 1 on 02/06/2024 by John Vargas MD at [facility] [id number] 09/18/2025 [id number] / / [id number] Stent Ureteral Double Pigtail Pos 6fr 26cm - [id number] Implanted:Qty: 1 on 03/04/2024 by John Vargas MD at [facility] [id number] 09/27/2025 [id number] / / [id number] Procedures Procedure Name Priority Date/Time Associated Diagnosis Comments ACUTE HEPATITIS PANEL Routine 03/02/2024 4:36 AM EST from Last 3 Months or Most Recently Relevant to Health Maintenance Results * Hepatitis panel, acute (03/02/2024 4:36 AM EST) Hepatitis B Surf Antigen Negative Negative 03/02/2024 6:46 AM EST [facility] Hepatitis C Antibody Negative Negative 03/02/2024 6:46 AM EST [facility] Hepatitis A Antibody IgM Negative Negative 03/02/2024 6:46 AM EST [facility] Hepatitis B Core Antibody IgM Negative Negative 03/02/2024 6:46 AM EST [facility] Blood Venous blood specimen / Unknown Venipuncture / Unknown 03/02/2024 4:36 AM EST 03/02/2024 4:46 AM EST us John Gilmore MD LAB BLOOD ORDERABLES Final Resu lt [facility] [address] [place] [address] from Last 3 Months or Most Recently Relevant to Health Maintenance Additional Health Concerns Infection Onset Date Last Indicated 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 02/05/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 02/28/2024 Insurance [place] Advance Directives Documents on File Type Date Recorded 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 Yes Patient has decision-making capacity? No Healthcare Surrogate: Court-appointed guardian * DNR/DNI Date Activated Date Inactivated Comments 02/06/2024 11:48 AM 02/08/2024 5:38 PM Question Answer Comments DNR determined on/before admission date? Yes Patient has decision-making capacity? No Healthcare Surrogate: Court-appointed guardian Name of Healthcare Surrogate: state * Full Code Date Activated Date Inactivated Comments 02/05/2024 11:42 PM 02/06/2024 11:48 AM Question Answer Comments Patient has decision-making capacity? No Healthcare Surrogate: Court-appointed guardian Care Teams Ice Platform Supervisor Relationship Specialty Start Date End Date Jeb Gonzalez MD [address] [facility] [place] [address] PCP - General 10/06/20
--- OUTSIDE RECORDS SUMMARY | 2025-01-08 13:19 | XMS_ITS | Clinical Summary ---
[facility] Address [address] [address] Phone Care Team Providers Care Gin Operator Name Role Phone Salo Segovia MD, Kevin Darrick Primary Care Provid er Allergies No known [...] mouth daily. 30 Tab 8 Active Balsam [place] Oil (VENELEX) 87-788 mg/gram Top Ointment Apply 1 Dose topically 2 times daily. 1 Tube 8 Active Balsam [place] Oil (VENELEX) 87-788 mg/gram Top Ointment Apply [...] Active Problems Problem Noted Date Diagnosed Date custodial resident 12/28/2023 Mood insomnia 09/28/2023 Mood disorder [...] 07/25/2016 Perineal rash in male 2017 Immunizations Immunization Administration Dates Next Due Influenza Patient Reported 01/27/2015 Influenza Vaccine, Unspecified Formulation 01/17 Pneumococcal Conjugate Vaccine 13 Valent 017 Td (adult), preservative free 10/29/2013 Surgical History Surgery Date Site/Laterality Comments HAND SURGERY TONSILLECTOMY Medical History Medical History Date Comments Hypertension ECHO 02/2015- EF 60-65% Paranoid schizophrenia (HCC) High cholesterol CHF (congestive heart failure) (HCC) Pneumonia Obesity Depression KARINA (acute kidney injury) 05/31/2016 Urinary incontinence 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 (HCC) 07/11/2017 Family History Medical History Relation Name [...] 74 07/31/2017 6:33 PM EDT Temperature 36.8 C (98.3 F) 07/31/2017 6:33 PM EDT Respiratory Rate 16 07/31/2017 6:33 PM EDT Oxygen Saturation 99% 07/31/2017 7:00 PM EDT Inhaled Oxygen Concentration - - Weight 108.9 kg (240 lb) 07/31/2017 3:45 PM EDT Height 182.9 cm (6') 07/31/2017 3:45 PM EDT Body Mass Index 32.55 07/31/2017 3:45 PM EDT Plan of Treatment Health Maintenance Due Date Last Done Comments Wellness Exam Medicare 1948 Hepatitis C Screening 1964 Zoster (1 of 2) 1996 DTaP/TDaP/Td (1 - Tdap) 10/30/2013 10/29/2013 Pneumococcal Vaccine 50+ (2 of 2 - PPSV23, PCV20, or PCV21) 07/27/2016 06/01/2016 RSV or 60+ (1 - 1-dose 75+ series) 2021 COVID-19 Vaccine (1 - 2023-2 5 season) 2024 Influenza Vaccine (#1) 2024 , 01/27/2015 Colon Cancer Screening Discontinued FIT Discontinued 06/02/2016 Cologuard Discontinued Colonoscopy Discontinued Hepatitis B Vaccine Aged Out No longe r eligible based on patient's age to complete this topic Meningococcal B Vaccine Aged Out No l onger eligible based on patient's age to complete [...] not recommended to detect upper GI bleeding. [facility] Stool specimen (specimen) 06/02/2016 12:00 PM EST 06/02/2016 3:39 PM EST Narrative [facility] - 06/02/2016 3:39 PM EST From rectal tube sample. us Gabriele Soto MD IMMUNOLOGY ORDERABLES Final Result [facility] [address] [place] [address] from Last 3 Months or Most Recently Relevant to Health Maintenance Insurance [place] [address] [place] [address] [place] [id number] [address] [place] Advance Directives For more information, please contact: [phone] * Full Code (Latest Code Status on File) Date Activated Date Inactivated Comments 07/12/2017 2:24 PM 07/19/2017 6:59 PM * Full Code Date Activated Date Inactivated Comments 07/10/2017 11:07 PM 07/12/2017 2:15 PM * Full Code Date Activated Date Inactivated Comments 05/31/2016 12:29 PM 06/05/2016 6:41 PM * Full Code Date Activated Date Inactivated Comments 03/01/2015 12:17 PM 03/07/2015 9:26 PM Care Teams Gin Operator Relationship Specialty Start Date End Date Kevin Leong Sr., MD [address] [place] [address] [place] [id number] PCP - General Screedman/Laborer 10/29/13
[2025-01-08 13:28] LABS: Activated Partial Thrombo Time 25.6 seconds (22.8-30.6); INR 1.13 (0.9-1.1); Prothrombin Time 12.4 seconds (10.1-12.5)
[2025-01-08 13:31] LABS: Alanine Aminotransferase 25 U/L (12-78); Albumin Level 3.6 g/dl (3.5-5.0); Albumin/Globulin Ratio 1.0 (1.1-1.8); Alkaline Phosphatase 91 U/L (38-126); Anion Gap 13.6 mEq/L (5-15); Aspartate Amino Transferase 26 U/L (17-59); Bilirubin,Total 0.6 mg/dl (0.2-1.3); Blood Urea Nitrogen 19 mg/dl (9-20); Calcium 8.8 mg/dl (8.4-10.2); Carbon Dioxide 27 mmol/L (22.0-30.0); Chloride 101 mmol/L (98-107); Creatinine Clearance Estimated 75 mL/min (50-200); Creatinine,Serum 1.30 mg/dl (0.66-1.25); Estimated Glomerular Filt Rate 53 ml/min (>60); GFR (African American) 65 ML/MIN (>60); Globulin 3.6 g/dL (1.3-3.2); Glucose 150 mg/dl (74-100); Potassium 4.6 mmoL/L (3.5-5.1); Sodium 137 mmol/L (136-145); Total Protein,Serum 7.2 g/dl (6.3-8.2)
[2025-01-08 13:36] LABS: C-Reactive Protein 117.1 mg/L (0-4)
[2025-01-08 13:41] LABS: NT Pro Brain Natriuretic Pep. 11800 pg/mL (0-450)
[2025-01-08 13:47] LABS: Creatine Kinase < 20 U/L (55-170)
[2025-01-08 13:58] LABS: Influenza A, PCR Not Detected (NotDetected); Influenza B, PCR Not Detected (NotDetected)
--- NOTE | 2025-01-08 13:58 | ECG_ITS ---
APPROVED REPORT Exam: Resting ECG HR:78 bpm ECG Measurements Heart Rate 78 AXES QRSd 142 QRS 125 QT 437 T 45 QTc 470 Conclusion Atrial fibrillation Narrow QRS, no QTc prolongation, likely right bundle branch block full interpretation limited by artifact Electronically signed by : Ferny White, 01/08/2025 16:49:00
--- NOTE | 2025-01-08 14:04 | CT_ITS ---
FINAL REPORT TECHNIQUE: Post contrast axial imaging of the aorta and bilateral lower extremity was obtained and reviewed. This study was performed with techniques to keep radiation doses as low as reasonably achievable (ALARA). Individualized dose reduction techniques using automated exposure control or adjustment of mA and/or kV according to the patient''s size were employed. CLINICAL HISTORY: no pulse on rt foot COMPARISON: 02/27/2024 FINDINGS: There are small bilateral pleural effusions with overlying atelectasis. The liver parenchyma is homogeneous. The gallbladder is present. The spleen appears unremarkable. There is a large mass again identified in the pancreatic tail measuring 7.8 x 6.2 cm. This appears similar to prior. There are a few small internal calcifications present. The adrenals are unremarkable. Benign-appearing cyst is seen in the anterior aspect of the right kidney. There is a small fat-containing umbilical hernia. The urinary bladder is unremarkable. The appendix is unremarkable. CTA: The aorta is normal in caliber. The celiac axis and SMA appear patent. There is vascular calcification within the proximal portions of both renal arteries. No definite flow-limiting stenosis identified. There is no abdominal aortic aneurysm. There is moderate vascular calcification within the iliac vessels. No flow-limiting stenosis identified. Right lower extremity: There is a moderate to high-grade focal stenosis in the proximal right SFA. Stenosis measures approximately 70%, while seen on image 249. There is moderate atherosclerosis within the adductor canal. There is vascular calcification throughout the popliteal artery. Two-vessel runoff is seen to the foot via the anterior tibial and peroneal arteries. Left lower extremity: The common femoral artery is patent. There is mild to moderate atherosclerotic disease in the left adductor canal. There is poor contrast delivery to the popliteal artery and tibial vessels. This poor contrast delivery is asymmetric. The reason for the asymmetry is unclear. IMPRESSION: Large mass in the pancreatic tail, stable. This is favored to represent low-grade malignancy. If not already biopsied, tissue sampling is recommended. Asymmetrically diminished contrast delivery to the left lower leg. The reason is unclear. 70% stenosis in the proximal right SFA. Reviewed, Interpreted and Dictated by Les Nelson MD Transcribed by Beth Last Authenticated and [facility]
[2025-01-08 14:26] LABS: Microscopic, Urine URINE MICROSCOPIC (MICROSCOPIC)
[2025-01-08 14:30] LABS: Coronavirus 19, PCR Detected (NotDetected)
[2025-01-08 14:36] LABS: Bilirubin,Urine Negative (Negative); Color,Urine YELLOW (Yellow); Glucose,Urine (UA) Negative (Negative); Ketones,Urine Negative (Negative); Leukocyte Esterase,Urine TRACE (Negative); PH,Urine 6.5 (5.0-8.5); Protein,Urine TRACE (Negative); Specific Gravity, Urine 1.010 (1.005-1.030); Urobilinogen,Urine 0.2 EU/dl (0.2)
[2025-01-08] MEDS: 0.9 % SODIUM CHLORIDE 50 ML VIAL 100 ML IV (14:43)
[2025-01-08] MEDS: IOPAMIDOL-370 (76%);100ML BOTTLE 120 ML IV (14:43)
[2025-01-08] MEDS: SODIUM CHLORIDE 0.9% 10ML SYR (RAD ONLY) 10 ML IV (14:43)
[2025-01-08 15:26] LABS: Bacteria,Urine 4+ /lpf; Mucus,Urine 1+ /lpf; WBC,Urine TNTC #/hpf (0-3)
[2025-01-08 15:27] LABS: Hyaline Casts,Urine Occasional #/lpf (0)
[2025-01-08] MEDS: BUMETANIDE 1MG/4ML VIAL 1 MG IV (15:36)
[2025-01-08] MEDS: PIPERACILLIN/TAZO 4.5 GM in 0.9 % SODIUM CHLORIDE 100 ML IV (15:54)
[2025-01-08] MEDS: VANCOMYCIN CONSULT REQUEST 1 EACH NOTAPPLIC (15:55)
[2025-01-08] MEDS: VANCOMYCIN/WATER FOR INJ (PEG) 1.75 GM/350 ML PIGGYBACK IV (16:53)
[2025-01-08 17:14] LABS: Reflex Lactic Add Lactic Reflex
--- NOTE | 2025-01-08 17:19 | PC.NURSE ---
I called radiology and spoke with Matthew regarding the results of the pts CTA. He is going to print the prelim
--- NOTE | 2025-01-08 17:20 | PC.NURSE ---
Prelim CTA report given to
--- NOTE | 2025-01-08 17:48 | PC.NURSE ---
Called [facility] per Dr Robles to speak with [facility]ascular about this pt with acute limb ischemia. Images were powershared and [facility] advised they would call us back.
--- NOTE | 2025-01-08 18:06 | PC.NURSE ---
called back and didnt receive the images so called Radiology and had them powershared again
--- NOTE | 2025-01-08 18:50 | PC.NURSE ---
I asked Aslhey in radiology to power share and make a disc for the pts transfer.
--- NOTE | 2025-01-08 18:53 | PC.NURSE ---
vascular surgeon accepted the pt at [facility]
--- NOTE | 2025-01-08 18:58 | PC.NURSE ---
Attempted to call report. Told to call back after shift change. hourly shift manager notified.
[2025-01-08] MEDS: HEPARIN SODIUM 5,000 UNIT/ML VIAL 9071.84 UNIT IV (19:45)
[2025-01-08] MEDS: HEPARIN SODIUM,PORCINE/D5W 500 ML 40 UNIT IV (19:45)
--- NOTE | 2025-01-08 20:00 | PC.NURSE ---
called [facility] for transfer due to no ortho per [facility] to call back.
[2025-01-08 20:02] LABS: PTT Heparin (inpatient only) 27.8 Seconds (50-75)
--- NOTE | 2025-01-08 20:38 | PC.NURSE ---
<jessica Purewick removed, pt brief changed, linens changed, [facility] to transport pt to [facility] ER
== END 2025-01-08 20:41 | disposition other institution (70) ==
PROVIDERS: Nurse Practitioner; Student in an Organized Health Care Education/Training Program; Emergency Provider Student in an Organized Health Care Education/Training Program
DX: U07.1 COVID-19 (principal); L03.115 Cellulitis of right lower limb; N39.0 Urinary tract infection, site not specified; I48.91 Unspecified atrial fibrillation; Z79.01 Long term (current) use of anticoagulants; I70.203 Unspecified atherosclerosis of native arteries of extremities, bilateral legs
CPT/HCPCS: 71045; 73630; 75635; 80053; 81001; 82550; 83605; 83880; 85025; 85610; 85651; 85730; 86140; 87040; 87086; 87636; 93005; 96365; 96366; 96367; 96375; 96376; 99285; J1644; J1939; J2543; J3375; Q9967

== ENCOUNTER 2025-01-29 12:52 | Emergency (ER) | payer MEDICARE, MEDICAID, SELFPAY ==
--- NOTE | 2025-01-29 12:48 | ECG_ITS ---
APPROVED REPORT Exam: Resting ECG HR:53 bpm ECG Measurements Heart Rate 53 AXES QRSd 146 QRS 98 QT 504 T 63 QTc 486 Conclusion ATRIAL FIBRILLATION WITH SLOW VENTRICULAR RESPONSE RIGHT BUNDLE BRANCH BLOCK [120+ ms QRS DURATION, UPRIGHT V1, 40+ ms S IN I/aVL/V4/V5/V6] ABNORMAL ECG UNCONFIRMED REPORT Electronically signed by : BRIGIDO GORDON, 01/30/2025 06:44:12
--- NOTE | 2025-01-29 12:49 | XR_ITS ---
FINAL REPORT CLINICAL HISTORY: short of breath COMPARISON: 01/08/2025 FINDINGS: No acute pulmonary opacity is present. There is no evidence of effusion or pneumothorax. Mediastinum is unremarkable. There is cardiomegaly. IMPRESSION: No acute abnormality. Reviewed, Interpreted and Dictated by Darren Titus MD Transcribed by Beth Last Authenticated and . [facility]
--- NOTE | 2025-01-29 12:49 | CT_ITS ---
FINAL REPORT CLINICAL HISTORY: possible stroke became unresponsive and diaphoretic FINDINGS: CT NECK ANGIO, WITHOUT AND WITH CONTRAST TECHNIQUE: Thin section axial CT with contrast with multiplanar 3D MIP reconstruction. This study was performed with techniques to keep radiation doses as low as reasonably achievable, (ALARA). Individualized dose reduction techniques using automated exposure control or adjustment of mA and/or kV according to the patient''s size were employed. NASCET criteria and technique was utilized during interpretation. Aortic arch: Arch shows no significant narrowing. Great vessel origins are widely patent. Right carotid: There is mild plaque disease without stenosis. Left carotid: There is mild plaque disease without stenosis. Vertebrals: Left vertebral artery is dominant. No significant stenosis is present. There is scattered mediastinal adenopathy which is nonspecific. The largest node in the left anterior mediastinum measures 16 mm. IMPRESSION: No significant stenosis of the cervical carotid arteries Reviewed, Interpreted and Dictated by Darren Titus MD Transcribed by Beth Last Authenticated and [facility]
--- NOTE | 2025-01-29 12:49 | CT_ITS ---
FINAL REPORT CLINICAL HISTORY: possible stroke became unresponsive and diaphoretic FINDINGS: CTA HEAD TECHNIQUE: Thin section axial CT with contrast with 3D MIP reconstruction This study was performed with techniques to keep radiation doses as low as reasonably achievable, (ALARA). Individualized dose reduction techniques using automated exposure control or adjustment of mA and/or kV according to the patient's size were employed. No aneurysm is seen. Major intracranial vessels are patent without significant stenosis. . IMPRESSION: Unremarkable This study was performed using automated techniques to achieve radiation exposure as low as reasonably achievable Reviewed, Interpreted and Dictated by Darren Titus MD Transcribed by Beth Last Authenticated and [facility]
--- NOTE | 2025-01-29 12:49 | CT_ITS ---
FINAL REPORT TECHNIQUE: Noncontrast exam This study was performed with techniques to keep radiation doses as low as reasonably achievable, (ALARA). Individualized dose reduction techniques using automated exposure control or adjustment of mA and/or kV according to the patient''s size were employed. CLINICAL HISTORY: possible stroke became unresponsive & diaphoretic COMPARISON: 02/27/2024 FINDINGS: Severe atrophy and chronic ischemic white matter changes are noted. Findings are similar to prior exam. No cortical edema is present. There is no mass or hemorrhage. Ventricles are normal. There is a small air-fluid level in the left maxillary sinus consistent with sinusitis. Bone windows show no skull fracture or obvious obstructive lesion. IMPRESSION: 1. No acute intracranial abnormality or obvious mass. Reviewed, Interpreted and Dictated by Darren Titus MD Transcribed by Beth Last Authenticated and [facility]
--- NOTE | 2025-01-29 12:55 | PC.NURSE ---
patient gone to CT at this time.
[2025-01-29 13:02] VITALS: BP 117/60; PULSE 51; RESP 26; TEMP 36.7; O2SAT 96; BMI 33.9
[2025-01-29] MEDS: 0.9 % SODIUM CHLORIDE 50 ML VIAL IV (13:07)
[2025-01-29] MEDS: SODIUM CHLORIDE 0.9% 10ML SYR (RAD ONLY) 10 ML IV (13:07)
[2025-01-29] MEDS: IOPAMIDOL-370 (76%);100ML BOTTLE 80 ML IV (13:07)
[2025-01-29 13:21] LABS: VBG HCO3 25.0 mmol/L (23-30); VBG PCO2 49.4 mmol/L (35-51); VBG PH 7.32 mmol/L (7.31-7.41); VBG PO2 50.1 mmol/L (28-40)
[2025-01-29 13:25] LABS: Lactate Venous 3.6 mmol/L (0.4-2.0)
[2025-01-29 13:27] LABS: Hematocrit 28.8 % (42.0-52.0); Hemoglobin 8.4 g/dL (14.1-18.0); Immature Granulocytes % 0.9 %; Mean Corpuscular HGB Conc 29.2 g/dL (31.8-35.4); Mean Corpuscular Hemoglobin 25.2 pg (27.0-31.2); Mean Corpuscular Volume 86.5 fl (80-94); Nucleated Red Blood Cells % 0 %; Platelet Count 224 K/mm3 (142-424); Red Blood Count 3.33 M/mm3 (4.60-6.20); Red Cell Distribution Width-SD 66.7 fL; White Blood Count 8.2 K/mm3 (4.8-10.8)
--- NOTE | 2025-01-29 13:31 | ED_ITS ---
Discharge Plan Disposition Patient Disposition: Xfer Other Prescriptions Prescriptions: No Action donepezil 5 MG tablet 5 mg PO HS atorvastatin 10 MG tablet 10 mg PO QODHS doxazosin 1 MG tablet 1 mg PO HS oxcarbazepine 300 MG tablet 300 mg PO BID amlodipine 5 MG tablet 5 mg PO DAILY acetaminophen 500 MG tablet 500 mg PO BID risperidone 2 MG tablet 2 mg PO BID pantoprazole 40 MG tablet,delayed release (DR/EC) 40 mg PO DAILY sennosides 8.6 mg Tablet 8.6 mg PO DAILYP PRN (Reason: Constipation) ibuprofen 400 mg tablet 400 mg PO Q8HP PRN (Reason: Mild Pain (Scale Score 1-4)) Eliquis 5 mg Tablet 5 mg PO BID 30 Days Qty: 60 0RF metoprolol succinate 100 mg Tablet Extended Release 24 Hr 100 mg PO DAILY 30 Days Qty: 30 0RF spironolactone 25 mg Tablet 25 mg PO DAILY 30 Days Qty: 30 0RF bumetanide 1 mg tablet 1 mg PO 0800,1400 30 Days Qty: 60 0RF polyethylene glycol 3350 17 GM powder in packet 17 gm PO DAILYP PRN (Reason: Constipation) docusate sodium 250 MG capsule 250 mg PO Q48H ondansetron 4 MG tablet,disintegrating 4 mg PO Q8HP PRN (Reason: Nausea And Vomiting) Referrals Follow up/Referrals: Provider,Referral, MD [Primary Care Provider, Medical] - See instructions Clinical Impressions Clinical Impression: Fixed dilated pupil of left eye, Dysphagia, Stroke-like symptoms Stand Alone Forms Stand Alone Forms: Transfer Record - ED Print Language Print Language: [place] Discharge ED Provider: Riley Coughlin General Adult HPI General Chief complaint: Neuro Symptoms/Deficit Stated complaint: unresponsive Time Seen by Provider: 01/29/25 12:52 Mode of Arrival: EMS Source of Information: EMS Description of Symptoms (Recalled from ER Triage Doc. by RN): Per EMS and prison staff patient was up in the dinning room being fed when he went unresponsive and diaphoretic. Per staff patient's pupils unequal. History of Present Illness HPI narrative: Renan Goncalves is a 79Y male with a past medical history of dementia, schizophrenia, A-fib on Eliquis, hypertension, hyperlipidemia, staying at prison who presents to the emergency department as a stroke alert. Per EMS, patient was eating lunch at noon at the prison and went unresponsive. When they found him, they noticed that he was diaphoretic and his left pupil was dilated compared to the right. Per EMS, patient's fingerstick blood glucose was 198 and route. Patient had episodes of apnea where he would stop breathing and get mildly hypoxic. He states that he was put on oxygen and has overall been doing well. They do note that he is bradycardic with heart rate in the 50s and in A-fib. On arrival, patient is alert and following some commands. He is confused but knows his name. He does not complain of anything at this time. He does. Have slurring of his speech. Related Data Home Medications ?Medication ?Instructions ?Recorded ?Confirmed acetaminophen 500 mg tablet 500 mg PO BID Joint pain 0 04/21/19 02/15/23 amlodipine 5 mg tablet 5 mg PO DAILY High Blood Pre ssure 04/21/19 02/15/23 atorvastatin 10 mg tablet 10 mg PO QODHS Cholesterol 0 04/21/19 02/15/23 donepezil 5 mg tablet 5 mg PO HS Memory 04/21/19 1 04/17/22 doxazosin 1 mg tablet 1 mg PO HS High Blood Pressu re 04/21/19 02/15/23 oxcarbazepine 300 mg tablet 300 mg PO BID Mood 0 02/15/23 pantoprazole 40 mg tablet,delayed 40 mg PO DAILY Acid Reflux 04/21/19 02/15/23 release risperidone 2 mg tablet 2 mg PO BID Mood 04/21/19 docusate sodium 250 mg capsule 250 mg PO Q48H Constipa tion 03/22/21 02/15/23 polyethylene glycol 3350 17 gram 17 gm PO DAILYP PRN C onstipation 03/22/21 02/15/23 oral powder packet ondansetron 4 mg disintegrating 4 mg PO Q8HP PRN Nause a And 07/20/21 02/15/23 tablet Vomiting ibuprofen 400 mg tablet 400 mg PO Q8HP PRN Mild Pain 02/14/23 02/15/23 (Scale Score 1-4) sennosides 8.6 mg tablet 8.6 mg PO DAILYP PRN Constip ation 02/14/23 02/15/23 Previous Rx's ?Medication ?Instructions ?Recorded apixaban 5 mg tablet (Eliquis) 5 mg PO BID 30 days #60 tabs 02/16/23 bumetanide 1 mg tablet 1 mg PO 0800,1400 30 days #6 0 tabs 02/16/23 metoprolol succinate 100 mg 100 mg PO DAILY 30 days #3 0 tabs 02/16/23 tablet,extended release 24 hr spironolactone 25 mg tablet 25 mg PO DAILY 30 days #30 tabs 02/16/23 Allergies Allergy/AdvReac Type Severity Reaction Status Date / Time No Known Allergies Allergy Verified 09/20/22 21:35 [facility] Disclaimer: The information contained in this section may have been updated after the patient was seen, as this information can be updated by other users. Medical History (Updated 01/29/25 @ 13:52 by Riley Coughlin MD) Dementia Obesity (BMI 30-39.9) Obesity, morbid (more than 100 lbs over ideal weight or BMI > 40) Chronic combined systolic (congestive) and diastolic (congestive) heart failure Osteopenia Lumbar spondylolysis Obesity Mass of pancreas Mass History of falling Neurocognitive disorder GERD (gastroesophageal reflux disease) Major depression Hyperlipemia HTN (hypertension) Chronic paranoid schizophrenia Hx of suicide attempt Social History Smoking Status: Unknown if ever smoked alcohol intake: never substance use type: denies use current occupational status: disabled Travel in the last 8 weeks?: None housing: prison Have you lived/traveled outside [place] in past 30 days?: No Contact w/someone who lives/traveled outside [place] past 30 days?: No Exposure to someone with infectious disease in past 14 days?: No Do you have a fever (greater than 100.4 F or 38 C)?: No Have you tested positive for COVID-19?: No Exposed to someone with COVID-19 in past 14 days?: No Do you have a sore throat?: No Do you have a cough?: No Do you have any weakness?: No Do you have any diarrhea?: No Are you experiencing any unusual bleeding?: No Do you have any muscle aches/pain?: No Do you have any abdominal pain?: No Are you experiencing loss of taste or smell?: No Other Medical History Have you received the Flu Vaccine for this season: No Have you received the Pneumonia Vaccine: No ROS Obtained: Yes unobtainable due to mental condition Physical Exam General General appearance: alert and in no apparent distress Comment: Alert, looking around the room, responds intermittently to commands Head Head exam: atraumatic Eye Eye exam: Present normal appearance and EOMI; Absent PERRL (Left pupil is significantly dilated and nonreactive to light. Right pupil is 3 mm and reactive to light) ENT ENT exam: Present normal external ear exam Neck Neck exam: Present full ROM Chest Chest inspection: Present symmetric chest wall rise Respiratory Respiratory exam: Present normal lung sounds bilaterally; Absent respiratory distress, wheezes or stridor Cardiovascular Cardiovascular exam: Present regular rate and normal rhythm Abdominal Exam Abdominal exam: Present soft; Absent distention, tenderness, guarding or rigidity exam: Present deferred Extremities Exam Extremities exam: Present normal inspection Back Exam Back exam: Present normal inspection Neurological Exam Neurological exam: Present alert and other Expanded Neurological Exam Comment: Will raise eyebrows, will close both eyes, will not stick out tongue/does not understand command. Dilated left pupil, right pupil equal reactive to light. Extraocular movements intact. Left upper extremity has significant drift and will hit the bed. Right upper extremity has less drift and does not hit the bed. Unable to lift either lower extremity off the bed. Correctly identifies what a watch is. Unable to understand commands for cerebellar testing. NIH of 11 on my exam. Psychiatric Psychiatric exam: Present other (Unable to assess secondary to mental status) Skin Skin exam: Present warm and dry Medical Decision Making Medical Records Screening: Per USPSTF and CDC recommendations, given the prevalence of disease in our region, it is our hospital?s policy to screen for HIV and viral Hepatitis for all patients aged 18 and over and those with ongoing risk factors. [place] Inquiry Pt receiving controlled substance: No Vital Signs: 01/29/25 13:02 Temperature 98.0 F Temperature Source Axillary Pulse Rate [Radial] 51 L Respiratory Rate 26 H Blood Pressure [Left Arm] 117/60 Blood Pressure Mean [Left Arm] 79 Blood Pressure Source [Left Arm] Automatic Cuff Blood Pressure Position [Left Arm] Supine 02 Sat by Pulse Oximetry 96 Oxygen Delivery Method Nasal Cannula Oxygen Flow Rate (LPM) 2 Lab Data Lab Results 01/29/25 13:10: WBC 8.2, RBC 3.33 L, Hgb 8.4 L, Hct 28.8 L, MCV 86.5, MCH 25.2 L , MCHC 29.2 L, RDW 21.6 H, Plt Count 224, MPV 9.7, Neut % (Auto) 81.9 H, Lymph % (Auto) 5.4 L, [place] % (Auto) 6.2, Eos % (Auto) 5.0, Baso % (Auto) 0.6, Neut # (Auto) 6.7, Lymph # (Auto) 0.4 L, [place] # (Auto) 0.5, Eos # (Auto) 0.4, Baso # (Auto) 0.1 01/29/25 13:14: VBG pH 7.32, VBG pCO2 49.4, VBG pO2 50.1 H, VBG HCO3 25.0, VBG Total CO2 26.5, VBG O2 Saturation 79.3 H, VBG Base Excess -1.1, VBG Lactic Acid 3.6 H 01/29/25 13:10 Orders (Tests/Meds): ED MEDICATIONS Generic Name Dose Route Start Last Admin Trade Name Freq PRN Reason Stop Dose Admin Lactated Ringer's 500 mls @ 999 mls/hr 01/29/25 13:36 01/29/25 13:45 Lactated Ringer's 500ml IV 01/29/25 14:06 999 mls/hr .Q31M ONE Administration Sodium Chloride 10 ml 01/29/25 12:48 Sodium Chloride 0.9% 10ml Flush Syringe IV 02/28/25 12:47 NEEDED PRN Maintain IV Site Discontinued Medications Generic Name Dose Route Start Last Admin Trade Name Freq PRN Reason Stop Dose Admin Iopamidol 80 ml 01/29/25 13:06 01/29/25 13:07 Iopamidol-370 (76%);100ml Bottle IV 01/29/25 13:07 80 ml ONCE ONE Administration Sodium Chloride 10 ml 01/29/25 13:06 01/29/25 13:07 Sodium Chloride 0.9% 10ml Syr (Rad Only) IV 01/29/25 13:07 10 ml ONCE ONE Administration Sodium Chloride 50 ml 01/29/25 13:06 01/29/25 13:07 0.9 % Sodium Chloride 50 Ml Vial IV 01/29/25 13:07 50 ml ONCE ONE Administration ORDERS Category Date Time Status CT angio head Stat Cat Scan 01/29/25 12:[address] angio neck Stat Cat Scan 01/29/25 12:[address] head/brain wo con Stat Cat Scan 01/29/25 12:49 Completed XR chest portable Stat Exams 01/29/25 12:49 Completed Activated Partial Thrombo Time Stat Lab 01/29/25 13:10 Received Complete Blood Count Auto Diff Stat Lab 01/29/25 13:10 Results Comprehensive Metabolic Panel Stat Lab 01/29/25 13:10 Received Drug Screen,Urine Stat Lab 01/29/25 12:49 Ordered Ethyl Alcohol Stat Lab 01/29/25 13:10 Received Lipid Panel Stat Lab 01/29/25 13:10 Received Prothrombin Time INR Stat Lab 01/29/25 13:10 Received Troponin I Q3H Lab 01/29/25 16:00 Ordered Troponin I Q3H Lab 01/29/25 19:00 Ordered Troponin I Stat Lab 01/29/25 13:10 Received Urinalysis and Microscopic Stat Lab 01/29/25 12:49 Ordered VBG [Venous Blood Gas] Stat RT 01/29/25 13:14 Completed Medical Decision Narrative: Renan Goncalves is a 79Y male with a past medical history of dementia, schizophrenia, A-fib on Eliquis, hypertension, hyperlipidemia, staying at prison who presents to the emergency department as a stroke alert. Per EMS, patient was eating lunch at noon at the prison and went unresponsive. When they found him, they noticed that he was diaphoretic and his left pupil was dilated compared to the right. Per EMS, patient's fingerstick blood glucose was 198 and route. Patient had episodes of apnea where he would stop breathing and get mildly hypoxic. He states that he was put on oxygen and has overall been doing well. They do note that he is bradycardic with heart rate in the 50s and in A-fib. On arrival, patient is alert and following some commands. He is confused but knows his name. He does not complain of anything at this time. He does have slurring of his speech. On arrival, patient's blood pressure 117/60, bradycardic with heart rate of 51, mildly tachypneic with respirations 26/min. Afebrile. Oxygen saturation 96% on 2 L nasal cannula. Physical exam, stated above, revealed alert appearing male in no significant respiratory distress. Will raise eyebrows, will close both eyes, will not stick out tongue/does not understand command. Dilated left pupil that is nonreactive to light, right pupil equal reactive to light. Extraocular movements intact. Left upper extremity has significant drift and will hit the bed. Right upper extremity has less drift and does not hit the bed. Unable to lift either lower extremity off the bed. Correctly identifies what a watch is. Unable to understand commands for cerebellar testing. NIH of 11 on my exam. Abdomen soft, nontender nondistended. Cardiopulmonary exam shows bradycardia but no murmurs or rubs. Digital diagnosis includes, but is not limited to: Intracranial hemorrhage, ischemic stroke, electrolyte derangement, Evon syndrome, metabolic derangement, among others. The most morbid conditions were considered and workup was based on these. Workup in the emergency room included: CTA of the head and neck, CT head without contrast, EKG, UA, chest x-ray, UDS, troponin, CMP, PT INR, PTT, CBC, alcohol level, lipid panel, VBG. CT imaging was interpreted by me personally and imaging was [facility] to [facility] via viz. no intracranial hemorrhage, mass or midline shift. There is atrophy. No large vessel occlusion in the head or neck. 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 Patient is on Eliquis and is not a candidate for TNK. I spoke with Dr. Davis and Dr. Melgoza with neurosurgery team at the [facility] and patient was accepted to the emergency of [facility] emergency department by Dr. Melgoza. We spoke to the [facility] transfer center to let them know patient will be coming. Will send patient via ALS given there is no acute intervention the patient will undergo. Chest x-ray interpreted by me personally. Patient has enlarged cardiac silhouette but no pneumothorax, no pulmonary effusion. No focal consolidation. See radiology report for final details Laboratory studies at this time show normal white blood cell count of 8.2, hemoglobin low at 8.4 and hematocrit of 28.8 (hemoglobin as of 01/08/2025 was 9.7). Platelets normal at 224. Patient's lactic acid is mildly elevated at 3.6. pH normal 7.32. pCO2 normal at 49.4. Bicarb normal at 26.5. Will give gentle fluid bolus (500 mL) the remainder of patient's laboratory studies are pending at this time and patient was transferred to the [facility] emergency department for further management. EKG was interpreted by me personally. A-fib with slow ventricular response with ventricular rate of 53 bpm. Right bundle branch block. No ST elevation or depression. QTc mildly prolonged at 486 Critical Care Critical Care Time Critical Care Time: Yes Attestation: On 01/29/25, the high probability of a clinically significant, sudden or life threatening deterioration of the following system(s) required my full and direct attention, intervention and personal management. The time I documented below is in addition to time spent performing reported procedures but includes the following listed in this critical care notation. Total Time Total Critical Care Time: 60
--- NOTE | 2025-01-29 13:34 | PC.NURSE ---
called [facility] to let them know of accepting doctor and patient information at this time.
[2025-01-29 13:41] LABS: Alanine Aminotransferase 47 U/L (12-78); Albumin Level 3.3 g/dl (3.5-5.0); Albumin/Globulin Ratio 1.1 (1.1-1.8); Alkaline Phosphatase 60 U/L (38-126); Anion Gap 15.6 mEq/L (5-15); Aspartate Amino Transferase 43 U/L (17-59); Bilirubin,Total 0.8 mg/dl (0.2-1.3); Blood Urea Nitrogen 26 mg/dl (9-20); Calcium 8.5 mg/dl (8.4-10.2); Carbon Dioxide 25 mmol/L (22.0-30.0); Chloride 101 mmol/L (98-107); Cholesterol 102 mg/dl (140-200); Creatinine Clearance Estimated 57 mL/min (50-200); Creatinine,Serum 1.70 mg/dl (0.66-1.25); Estimated Glomerular Filt Rate 39 ml/min (>60); GFR (African American) 47 ML/MIN (>60); Globulin 3.1 g/dL (1.3-3.2); Glucose 178 mg/dl (74-100); HDL Cholesterol 25 mg/dl (40-60); Potassium 4.6 mmoL/L (3.5-5.1); Sodium 137 mmol/L (136-145); Total Protein,Serum 6.4 g/dl (6.3-8.2); Triglycerides 81 mg/dl (30-150)
[2025-01-29] MEDS: RINGERS SOLUTION,LACTATED 500 ML 999 ML IV (13:45)
[2025-01-29 14:05] LABS: Troponin I < 0.01 ng/ml (0.00-0.034)
[2025-01-29 14:11] VITALS: BP 107/47; PULSE 48; RESP 26; TEMP 36.7; O2SAT 94
--- NOTE | 2025-01-29 14:13 | PC.NURSE ---
Report given to TAMICA Leonardo at [facility]
[2025-01-29 14:19] LABS: Activated Partial Thrombo Time 23.4 seconds (22.8-30.6); INR 1.15 (0.9-1.1); Prothrombin Time 12.6 seconds (10.1-12.5)
[2025-01-29 15:17] LABS: Anisocytosis 1+; Giant Platelets 1+; Total Cells Counted 100
[2025-01-29 15:18] LABS: Burr Cells 1+; Macrocytosis 1+; Microcytosis 1+; Poikilocytosis 1+; Polychromasia 1+; Target Cells 1+; Tear Drop Cells 1+
[2025-01-29 17:26] LABS: Reflex Lactic Add Lactic Reflex
== END 2025-01-29 14:15 | disposition other institution (70) ==
PROVIDERS: Emergency Provider Student in an Organized Health Care Education/Training Program
DX: R09.02 Hypoxemia (principal); H57.04 Mydriasis; R29.818 Other symptoms and signs involving the nervous system; R13.10 Dysphagia, unspecified; R74.02 Elevation of levels of lactic acid dehydrogenase [LDH]; N17.9 Acute kidney failure, unspecified; R00.1 Bradycardia, unspecified; I48.91 Unspecified atrial fibrillation; I10 Essential (primary) hypertension; E78.5 Hyperlipidemia, unspecified; Z79.01 Long term (current) use of anticoagulants
CPT/HCPCS: 70450; 70496; 70498; 71045; 80053; 80061; 80320; 82803; 84484; 85007; 85025; 85610; 85730; 93005; 99285; J7120; Q9967